=== PATIENT | male | born 1945 | race Caucasian/White ===

== ENCOUNTER → 2016-06-09 | Outpatient (CLI) | payer MEDICARE, OTHER ==
[~2016-06-09] MED LIST: AMIODARONE PO; APIX2.5T OR; ASCO500C49 PO; CHOL20007 PO; CLOP75TA28 PO; Doxycycline Monohydrate PO; FURO40TA4 PO; INSU50IN SC; INSUINJ49 BC; INSUINJ49 SC; LIRA18IN2 SC; MAGN400T21 GT; NIFE30TA76 PO; ROSU10TA16 OR; VALS40TA2 PO; ZINC100T2 PO
[2016-06-09 09:31] LABS: Hematocrit 45.7 % (41.0-53.0); Hemoglobin 14.6 g/dL (13.5-17.5); Mean Corpuscular Hemoglobin 27.3 pg (28.0-32.0); Mean Corpuscular Volume 85.3 fL (80.0-100.0); Mean Platelet Volume 7.3 fL (7.4-10.4); Platelet Count (auto) 419 10^3/uL (140-450); Red Cell Distribution Width 18.6 % (11.6-16.0); SUSPECT VIEW TRANSMISSION
[2016-06-09 09:36] LABS: Metamyelocytes % 0; Myelocytes % 0; Promyelocytes % 0; Reactive Lymphocytes 0
[2016-06-09 10:35] LABS: Platelet Estimate Adequate
== END | disposition home or self-care (01) ==
LOC: LAB 08:59
PROVIDERS: ATTEND Internal Medicine
DX: M86.9 Osteomyelitis, unspecified (principal)
CPT/HCPCS: 36415; 85007; 85027; 85049

== ENCOUNTER 2016-09-11 02:59 | Inpatient (IN) | payer MEDICARE, OTHER ==
[~2016-09-11] VITALS: Ht 177.8 cm; Wt 128.1 kg
[2016-09-11] MEDS ORDERED: SODIUM CHLORIDE 0.9% 250 ML IV ONE (06:58)
[2016-09-11] MEDS ORDERED: ONDANSETRON HCL 4 MG/2 ML VIAL IV ONE (07:00)
[2016-09-11] MEDS ORDERED: HYDROmorphone HCL 2 MG/ML VL IV ONE (07:00)
[2016-09-11] MEDS ORDERED: ACETAMINOPHEN 325 MG TAB PO ONE (07:15)
[2016-09-11 07:40] LABS: Basophils # (auto) 0 uL; DEFINITIVE VIEW TRANSMISSION; Eosinophils # (auto) 0.1 uL; Eosinophils % (auto) 0.7 % (0.0-7.0); Hematocrit 30.3 % (41.0-53.0); Hemoglobin 9.8 g/dL (13.5-17.5); Lymphocytes # (auto) 0.5 uL; Lymphocytes % (auto) 3.4 % (10.0-50.0); Mean Corpuscular Hemoglobin 27.1 pg (28.0-32.0); Mean Corpuscular Hgb Conc. 32.4 g/dL (32.0-36.0); Mean Corpuscular Volume 83.5 fL (80.0-100.0); Mean Platelet Volume 7.2 fL (7.4-10.4); Monocytes # (auto) 1.3 uL; Monocytes % (auto) 8.1 % (0.0-12.0); Neutrophils # (auto) 13.8 uL; Neutrophils % (auto) 87.8 % (37.0-80.0); Platelet Count (auto) 324 10^3/uL (140-450); Red Cell Distribution Width 19.1 % (11.6-16.0); White Blood Cell 15.7 10^3/uL (4.4-10.8)
[2016-09-11 08:10] LABS: INR 1.11 (0.9-1.15); Partial Thromboplastin Time 48.5 sec (22.64-33.71)
[2016-09-11 08:19] LABS: Albumin 2.4 g/dL (3.4-5.0); BUN/Creatinine Ratio 19.6; Bilirubin, Total 0.7 mg/dL (0.2-1.0); Calcium 8.7 mg/dL (8.5-10.1); Magnesium 2.6 mg/dL (1.6-2.6); Potassium 3.8 mmol/L (3.5-5.1); Total Protein 6.5 g/dL (6.4-8.2)
[2016-09-11] MEDS ORDERED: ACETAMINOPHEN 325 MG TAB PO PRN (10:30)
[2016-09-11] MEDS ORDERED: DEXTROSE (50%) 50ML SYRG IV PRN (10:30)
[2016-09-11] MEDS ORDERED: TEMAZEPAM 15 MG CAP PO PRN (10:30)
[2016-09-11] MEDS ORDERED: MORPHINE SULF INJ 2 MG/ML SYRINGE 1ML IV PRN (10:30)
[2016-09-11] MEDS ORDERED: VANCOMYCIN PER PHARMACY 0 MG IV SCH (10:30)
[2016-09-11] MEDS ORDERED: NITROGLYCERIN 0.4 MG SL TAB SL PRN (10:30)
[2016-09-11] MEDS ORDERED: LEVOFLOXACIN 500MG 100 ML IV ONE (10:30)
[2016-09-11] MEDS ORDERED: cloNIDine HCL 0.1 MG TAB PO PRN (10:45)
[2016-09-11] MEDS: FAMOTIDINE 20 MG TAB PO SCH ×2 (11:39→22:20)
[2016-09-11] MEDS: MULTIPLE VITAMIN TAB PO SCH (11:39)
[2016-09-11] MEDS: CLOPIDOGREL BISULFATE 75 MG TAB PO SCH (11:40)
[2016-09-11] MEDS: ASCORBIC ACID 500 MG TAB PO SCH ×2 (11:40→22:20)
[2016-09-11] MEDS: ZINC SULFATE 220 MG CAP PO SCH (11:40)
[2016-09-11] MEDS: AMIODARONE HCL 200 MG TAB PO SCH ×2 (11:40→22:21)
[2016-09-11] MEDS: NIFEdipine ER 30 MG TAB PO SCH (11:40)
[2016-09-11] MEDS: ONDANSETRON HCL 4 MG/2 ML VIAL IV PRN (12:21)
[2016-09-11] MEDS: SODIUM CHLORIDE 0.9% 1,000 ML IV SCH ×2 (12:28→18:48)
[2016-09-11] MEDS: ACCU-CHEK COMFORT CURVE STRIP VI SCH ×3 (12:29→22:00)
[2016-09-11] MEDS: InsuLIN REG 1unit/0.01ml Soln (100units/ml) SC SCH ×3 (12:39→22:30)
[2016-09-11 13:35] VITALS: BP 111/42
[2016-09-11 13:55] VITALS: BP 111/42
[2016-09-11] MEDS: Boost Glucose Control 8 Ounces PO SCH ×3 (14:36→22:20)
[2016-09-11] MEDS: APIXABAN 2.5 MG TAB PO SCH ×2 (14:43→22:20)
[2016-09-11] MEDS: VANCOMYCIN 1GM/250ML D5W 250 ML IV SCH (14:45)
[2016-09-11 16:00] VITALS: BP 101/46
[2016-09-11] MEDS: INSULIN 70/30 1unit/0.01ml Susp (100units/ml) SC SCH (18:13)
[2016-09-11 20:00] VITALS: BP 121/49
[2016-09-11] MEDS: MORPHINE SULF INJ 2 MG/ML SYRINGE 1ML IV PRN (22:16)
[2016-09-11] MEDS: MAGNESIUM OXIDE 400 MG TAB PO SCH (22:20)
[2016-09-11] MEDS: ATORVASTATIN 20 MG TAB PO SCH (22:20)
[2016-09-12] VITALS: BP 109/58
[2016-09-12] MEDS: VANCOMYCIN 1GM/250ML D5W 250 ML IV SCH (01:00)
[2016-09-12] MEDS: SODIUM CHLORIDE 0.9% 1,000 ML IV SCH (01:04)
[2016-09-12 04:00] VITALS: BP 131/54
[2016-09-12 05:22] LABS: Basophils # (auto) 0 uL; DEFINITIVE VIEW TRANSMISSION; Eosinophils # (auto) 0.3 uL; Eosinophils % (auto) 2.5 % (0.0-7.0); Hematocrit 32.6 % (41.0-53.0); Hemoglobin 10.3 g/dL (13.5-17.5); Lymphocytes # (auto) 0.5 uL; Lymphocytes % (auto) 4.2 % (10.0-50.0); Mean Corpuscular Hemoglobin 26.7 pg (28.0-32.0); Mean Corpuscular Hgb Conc. 31.7 g/dL (32.0-36.0); Mean Corpuscular Volume 84.2 fL (80.0-100.0); Mean Platelet Volume 7.2 fL (7.4-10.4); Monocytes % (auto) 7.5 % (0.0-12.0); Neutrophils # (auto) 10.9 uL; Neutrophils % (auto) 85.8 % (37.0-80.0); Platelet Count (auto) 321 10^3/uL (140-450); Red Cell Distribution Width 19.4 % (11.6-16.0); White Blood Cell 12.7 10^3/uL (4.4-10.8)
[2016-09-12 05:45] LABS: Albumin 2.4 g/dL (3.4-5.0); BUN/Creatinine Ratio 18.5; Bilirubin, Total 0.7 mg/dL (0.2-1.0); Calcium 8.5 mg/dL (8.5-10.1); Potassium 4.3 mmol/L (3.5-5.1); Total Protein 6.9 g/dL (6.4-8.2)
[2016-09-12] MEDS: Boost Glucose Control 8 Ounces PO SCH ×4 (06:00→22:00)
[2016-09-12] MEDS: InsuLIN REG 1unit/0.01ml Soln (100units/ml) SC SCH ×4 (06:59→22:13)
[2016-09-12] MEDS: ACCU-CHEK COMFORT CURVE STRIP VI SCH ×4 (06:59→22:13)
[2016-09-12 08:00] VITALS: BP 115/51
[2016-09-12] MEDS: INSULIN 70/30 1unit/0.01ml Susp (100units/ml) SC SCH ×2 (08:30→18:28)
[2016-09-12 09:26] LABS: Urine RBC None Seen /hpf (0 - 3)
[2016-09-12] MEDS: ZINC SULFATE 220 MG CAP PO SCH (09:47)
[2016-09-12] MEDS: APIXABAN 2.5 MG TAB PO SCH ×2 (09:48→21:27)
[2016-09-12] MEDS: AMIODARONE HCL 200 MG TAB PO SCH ×2 (09:48→21:27)
[2016-09-12] MEDS: FAMOTIDINE 20 MG TAB PO SCH ×2 (09:48→21:28)
[2016-09-12] MEDS: NIFEdipine ER 30 MG TAB PO SCH (09:48)
[2016-09-12] MEDS: MULTIPLE VITAMIN TAB PO SCH (09:48)
[2016-09-12] MEDS: MAGNESIUM OXIDE 400 MG TAB PO SCH ×2 (09:48→22:00)
[2016-09-12] MEDS: CLOPIDOGREL BISULFATE 75 MG TAB PO SCH (09:48)
[2016-09-12] MEDS: VICTOZA 18 MG/3 ML SC SCH (09:49)
[2016-09-12] MEDS: CHOLECALCIFEROL (VITD3) 1,000 UNIT TAB PO SCH (09:49)
[2016-09-12] MEDS: ASCORBIC ACID 500 MG TAB PO SCH ×2 (09:49→21:28)
[2016-09-12 09:52] LABS: Urine Bilirubin Negative (Negative); Urine Blood Negative /uL (Negative); Urine Color Yellow (Yellow); Urine Glucose Normal (Normal); Urine Hyaline Cast FEW /lpf (0 - 2); Urine Ketone Negative (Negative); Urine Nitrite Negative (Negative); Urine Squamous Epithelial Cell FEW /hpf (<5); Urine Urobilinogen Normal (Negative)
[2016-09-12] MEDS ORDERED: LEVOFLOXACIN 250MG 50 ML IV SCH (10:00)
[2016-09-12] MEDS ORDERED: PATIENTS OWN MEDICATION PO SCH ×2 (10:00)
[2016-09-12 11:47] VITALS: BP 113/53
[2016-09-12] MEDS ORDERED: DOCUSATE SOD 100 MG CAP PO ONE (12:15)
[2016-09-12] MEDS: PIPERACILLIN-TAZOB 2.25GM 50 ML IV SCH ×2 (12:26→18:27)
[2016-09-12 15:43] VITALS: BP 117/59
[2016-09-12 20:00] VITALS: BP 140/58
[2016-09-12] MEDS: ATORVASTATIN 20 MG TAB PO SCH (21:28)
[2016-09-12] MEDS: DOCUSATE SOD 100 MG CAP PO SCH (21:53)
[2016-09-12] MEDS: MORPHINE SULF INJ 2 MG/ML SYRINGE 1ML IV PRN (21:53)
[2016-09-12] MEDS: ONDANSETRON HCL 4 MG/2 ML VIAL IV PRN (21:53)
[2016-09-12] MEDS ORDERED: ACETAMINOPHEN 325 MG TAB PO PRN (22:30)
[2016-09-13] VITALS (8 sets, daily range): BP systolic 104–141; BP diastolic 43–61
[2016-09-13] MEDS: PIPERACILLIN-TAZOB 2.25GM 50 ML IV SCH ×4 (00:12→18:13)
[2016-09-13 05:33] LABS: Basophils # (auto) 0 uL; Basophils % (auto) 0.1 % (0.0-2.0); DEFINITIVE VIEW TRANSMISSION; Eosinophils # (auto) 0.2 uL; Eosinophils % (auto) 1.4 % (0.0-7.0); Hematocrit 30.4 % (41.0-53.0); Hemoglobin 9.9 g/dL (13.5-17.5); Lymphocytes # (auto) 0.5 uL; Lymphocytes % (auto) 3.7 % (10.0-50.0); Mean Corpuscular Hemoglobin 26.8 pg (28.0-32.0); Mean Corpuscular Hgb Conc. 32.3 g/dL (32.0-36.0); Mean Corpuscular Volume 82.9 fL (80.0-100.0); Mean Platelet Volume 7.2 fL (7.4-10.4); Monocytes # (auto) 0.8 uL; Monocytes % (auto) 6.5 % (0.0-12.0); Neutrophils # (auto) 11.2 uL; Neutrophils % (auto) 88.3 % (37.0-80.0); Platelet Count (auto) 336 10^3/uL (140-450); Red Cell Distribution Width 18.5 % (11.6-16.0); White Blood Cell 12.7 10^3/uL (4.4-10.8)
[2016-09-13 05:53] LABS: BUN/Creatinine Ratio 19.4; Calcium 8.4 mg/dL (8.5-10.1)
[2016-09-13] MEDS: InsuLIN REG 1unit/0.01ml Soln (100units/ml) SC SCH ×4 (07:09→21:46)
[2016-09-13] MEDS: ACCU-CHEK COMFORT CURVE STRIP VI SCH ×4 (07:09→21:46)
[2016-09-13] MEDS: Boost Glucose Control 8 Ounces PO SCH ×4 (07:10→21:46)
[2016-09-13] MEDS: INSULIN 70/30 1unit/0.01ml Susp (100units/ml) SC SCH ×2 (08:42→18:14)
[2016-09-13] MEDS: HYDROcodone-ACET 5/325MG TAB PO PRN (08:43)
[2016-09-13] MEDS: VICTOZA 18 MG/3 ML SC SCH (10:00)
[2016-09-13] MEDS: AMIODARONE HCL 200 MG TAB PO SCH ×2 (10:01→21:45)
[2016-09-13] MEDS: ZINC SULFATE 220 MG CAP PO SCH (10:01)
[2016-09-13] MEDS: DOCUSATE SOD 100 MG CAP PO SCH ×2 (10:01→21:46)
[2016-09-13] MEDS: CLOPIDOGREL BISULFATE 75 MG TAB PO SCH (10:02)
[2016-09-13] MEDS: CHOLECALCIFEROL (VITD3) 1,000 UNIT TAB PO SCH (10:02)
[2016-09-13] MEDS: ASCORBIC ACID 500 MG TAB PO SCH ×2 (10:02→21:45)
[2016-09-13] MEDS: FAMOTIDINE 20 MG TAB PO SCH ×2 (10:02→21:45)
[2016-09-13] MEDS: APIXABAN 2.5 MG TAB PO SCH ×2 (10:02→21:45)
[2016-09-13] MEDS: MULTIPLE VITAMIN TAB PO SCH (10:02)
[2016-09-13] MEDS ORDERED: LACTULOSE 20Gm/30ML SOLN PO ONE (17:00)
[2016-09-13] MEDS: ONDANSETRON HCL 4 MG/2 ML VIAL IV PRN (20:03)
[2016-09-13] MEDS: MORPHINE SULF INJ 2 MG/ML SYRINGE 1ML IV PRN (20:45)
[2016-09-13] MEDS: ATORVASTATIN 20 MG TAB PO SCH (21:45)
[2016-09-14] VITALS (7 sets, daily range): BP systolic 100–137; BP diastolic 52–62
[2016-09-14] MEDS: PIPERACILLIN-TAZOB 2.25GM 50 ML IV SCH ×5 (00:17→23:48)
[2016-09-14] MEDS: Boost Glucose Control 8 Ounces PO SCH ×4 (05:47→22:01)
[2016-09-14 06:07] LABS: Basophils # (auto) 0 uL; DEFINITIVE VIEW TRANSMISSION; Eosinophils # (auto) 0.1 uL; Eosinophils % (auto) 0.5 % (0.0-7.0); Hematocrit 31.9 % (41.0-53.0); Hemoglobin 10.2 g/dL (13.5-17.5); Lymphocytes # (auto) 0.7 uL; Lymphocytes % (auto) 4.2 % (10.0-50.0); Mean Corpuscular Hemoglobin 26.9 pg (28.0-32.0); Mean Corpuscular Volume 84.1 fL (80.0-100.0); Mean Platelet Volume 7.7 fL (7.4-10.4); Monocytes # (auto) 0.9 uL; Monocytes % (auto) 5.9 % (0.0-12.0); Neutrophils # (auto) 14.3 uL; Neutrophils % (auto) 89.4 % (37.0-80.0); Platelet Count (auto) 387 10^3/uL (140-450)
[2016-09-14 06:16] LABS: Calcium 8.6 mg/dL (8.5-10.1); Magnesium 3.2 mg/dL (1.6-2.6); Potassium 3.9 mmol/L (3.5-5.1)
[2016-09-14 06:18] LABS: BUN/Creatinine Ratio 20.1
[2016-09-14] MEDS: ACCU-CHEK COMFORT CURVE STRIP VI SCH ×4 (06:52→22:02)
[2016-09-14] MEDS: InsuLIN REG 1unit/0.01ml Soln (100units/ml) SC SCH ×4 (06:52→22:02)
[2016-09-14] MEDS: INSULIN 70/30 1unit/0.01ml Susp (100units/ml) SC SCH ×2 (08:00→18:10)
[2016-09-14] MEDS: ONDANSETRON HCL 4 MG/2 ML VIAL IV PRN (08:17)
[2016-09-14] MEDS: CLOPIDOGREL BISULFATE 75 MG TAB PO SCH (08:19)
[2016-09-14] MEDS: VICTOZA 18 MG/3 ML SC SCH (10:00)
[2016-09-14] MEDS: MULTIPLE VITAMIN TAB PO SCH (10:00)
[2016-09-14] MEDS: AMIODARONE HCL 200 MG TAB PO SCH ×2 (10:00→22:00)
[2016-09-14] MEDS: CHOLECALCIFEROL (VITD3) 1,000 UNIT TAB PO SCH (10:04)
[2016-09-14] MEDS: ZINC SULFATE 220 MG CAP PO SCH (10:04)
[2016-09-14] MEDS: ASCORBIC ACID 500 MG TAB PO SCH ×2 (10:04→22:01)
[2016-09-14] MEDS: DOCUSATE SOD 100 MG CAP PO SCH ×2 (10:04→22:00)
[2016-09-14] MEDS: FAMOTIDINE 20 MG TAB PO SCH ×2 (10:04→22:01)
[2016-09-14] MEDS: APIXABAN 2.5 MG TAB PO SCH ×2 (10:04→22:01)
[2016-09-14] MEDS: ATORVASTATIN 20 MG TAB PO SCH (22:01)
[2016-09-14] MEDS: HYDROcodone-ACET 5/325MG TAB PO PRN (22:02)
[2016-09-15 04:35] VITALS: BP 129/64
[2016-09-15] MEDS: PIPERACILLIN-TAZOB 2.25GM 50 ML IV SCH (05:57)
[2016-09-15] MEDS: Boost Glucose Control 8 Ounces PO SCH (05:57)
[2016-09-15 06:19] LABS: Basophils # (auto) 0 uL; Basophils % (auto) 0.1 % (0.0-2.0); DEFINITIVE VIEW TRANSMISSION; Eosinophils # (auto) 0.3 uL; Eosinophils % (auto) 3.1 % (0.0-7.0); Hematocrit 29.6 % (41.0-53.0); Hemoglobin 9.7 g/dL (13.5-17.5); Lymphocytes # (auto) 0.6 uL; Lymphocytes % (auto) 5.4 % (10.0-50.0); Mean Corpuscular Hemoglobin 26.9 pg (28.0-32.0); Mean Corpuscular Hgb Conc. 32.7 g/dL (32.0-36.0); Mean Corpuscular Volume 82.3 fL (80.0-100.0); Mean Platelet Volume 7.7 fL (7.4-10.4); Monocytes # (auto) 0.9 uL; Monocytes % (auto) 8.3 % (0.0-12.0); Neutrophils # (auto) 8.7 uL; Neutrophils % (auto) 83.1 % (37.0-80.0); Platelet Count (auto) 384 10^3/uL (140-450); Red Cell Distribution Width 18.9 % (11.6-16.0); White Blood Cell 10.5 10^3/uL (4.4-10.8)
[2016-09-15] MEDS: ACCU-CHEK COMFORT CURVE STRIP VI SCH (06:51)
[2016-09-15] MEDS: InsuLIN REG 1unit/0.01ml Soln (100units/ml) SC SCH (06:52)
[2016-09-15 07:23] VITALS: BP 125/57
[2016-09-15 08:00] VITALS: BP 125/57
[2016-09-15] MEDS: CLOPIDOGREL BISULFATE 75 MG TAB PO SCH (09:00)
[2016-09-15] MEDS: FAMOTIDINE 20 MG TAB PO SCH (09:00)
[2016-09-15] MEDS: MULTIPLE VITAMIN TAB PO SCH (09:00)
[2016-09-15] MEDS: INSULIN 70/30 1unit/0.01ml Susp (100units/ml) SC SCH (09:00)
[2016-09-15] MEDS: APIXABAN 2.5 MG TAB PO SCH (09:00)
[2016-09-15] MEDS: CHOLECALCIFEROL (VITD3) 1,000 UNIT TAB PO SCH (09:00)
[2016-09-15] MEDS: DOCUSATE SOD 100 MG CAP PO SCH (09:00)
[2016-09-15] MEDS: ZINC SULFATE 220 MG CAP PO SCH (09:00)
[2016-09-15] MEDS: ASCORBIC ACID 500 MG TAB PO SCH (09:00)
[2016-09-15] MEDS: AMIODARONE HCL 200 MG TAB PO SCH (09:01)
[2016-09-15] MEDS: VICTOZA 18 MG/3 ML SC SCH (09:03)
[2016-09-15 11:58] VITALS: BP 108/48
== END 2016-09-15 13:15 | disposition home or self-care (01) | DRG 314 ==
LOC: ER 03:01 → TELE 03:02 → DOU IN ICU 13:37 → TELE-CENTR 09-13 16:10
PROVIDERS: ADMIT Internal Medicine; ATTEND Internal Medicine
PROC: 5A09357 Assistance with Respiratory Ventilation, Less than 24 Consecutive Hours, Continuous Positive Airway Pressure (ICD-10-PCS; principal; 2016-09-12)
DX: T82.7XXA Infection and inflammatory reaction due to other cardiac and vascular devices, implants and grafts, initial encounter (principal); A41.89 Other specified sepsis; E43 Unspecified severe protein-calorie malnutrition; I50.32 Chronic diastolic (congestive) heart failure; I25.10 Atherosclerotic heart disease of native coronary artery without angina pectoris; E86.0 Dehydration; E10.21 Type 1 diabetes mellitus with diabetic nephropathy; E03.9 Hypothyroidism, unspecified; E78.5 Hyperlipidemia, unspecified; I48.91 Unspecified atrial fibrillation; N18.3 Chronic kidney disease, stage 3 (moderate); E66.01 Morbid (severe) obesity due to excess calories; Z68.39 Body mass index [BMI] 39.0-39.9, adult; J44.9 Chronic obstructive pulmonary disease, unspecified; Z99.81 Dependence on supplemental oxygen; I13.10 Hypertensive heart and chronic kidney disease without heart failure, with stage 1 through stage 4 chronic kidney disease, or unspecified chronic kidney disease; Y83.9 Surgical procedure, unspecified as the cause of abnormal reaction of the patient, or of later complication, without mention of misadventure at the time of the procedure
CPT/HCPCS: 36415; 71010; 72131; 73030; 74176; 80048; 80053; 81001; 82962; 83036; 83605; 83735; 84484; 85025; 85610; 85730; 87040; 87081; 87086; 93005; 93306; 93971; 94660; 96361; 96365; 96375; 97116; 97530; J1815; J1956; J2405; J2543

== ENCOUNTER → 2016-09-21 | Outpatient (CLI) | payer MEDICARE, OTHER ==
[2016-09-21 09:13] LABS: Urine RBC None Seen /hpf (0 - 3)
[2016-09-21 09:14] LABS: Basophils # (auto) 0 uL; Basophils % (auto) 0.2 % (0.0-2.0); DEFINITIVE VIEW TRANSMISSION; Eosinophils # (auto) 0.3 uL; Eosinophils % (auto) 2.2 % (0.0-7.0); Hematocrit 33.4 % (41.0-53.0); Hemoglobin 10.7 g/dL (13.5-17.5); Lymphocytes # (auto) 0.6 uL; Lymphocytes % (auto) 4.8 % (10.0-50.0); Mean Corpuscular Hemoglobin 26.4 pg (28.0-32.0); Mean Corpuscular Hgb Conc. 32.2 g/dL (32.0-36.0); Mean Corpuscular Volume 82.1 fL (80.0-100.0); Mean Platelet Volume 6.9 fL (7.4-10.4); Monocytes # (auto) 0.9 uL; Monocytes % (auto) 6.8 % (0.0-12.0); Neutrophils # (auto) 10.9 uL; Platelet Count (auto) 419 10^3/uL (140-450); Red Cell Distribution Width 19.7 % (11.6-16.0); White Blood Cell 12.6 10^3/uL (4.4-10.8)
[2016-09-21 09:36] LABS: Albumin 2.6 g/dL (3.4-5.0); BUN/Creatinine Ratio 17.8; Bilirubin, Total 0.5 mg/dL (0.2-1.0); Calcium 8.7 mg/dL (8.5-10.1); Potassium 4.2 mmol/L (3.5-5.1); Total Protein 7.1 g/dL (6.4-8.2)
[2016-09-21 09:49] LABS: Urine Bilirubin Negative (Negative); Urine Blood Negative /uL (Negative); Urine Color Yellow (Yellow); Urine Glucose Normal (Normal); Urine Ketone Negative (Negative); Urine Nitrite Negative (Negative); Urine Urobilinogen Normal (Negative)
== END | disposition home or self-care (01) ==
LOC: LAB 08:53
PROVIDERS: ATTEND Internal Medicine
DX: D72.829 Elevated white blood cell count, unspecified (principal); C50.122 Malignant neoplasm of central portion of left male breast; C64.2 Malignant neoplasm of left kidney, except renal pelvis
CPT/HCPCS: 36415; 80053; 81001; 83615; 85025

== ENCOUNTER → 2016-09-21 | Outpatient (CLI) | payer MEDICARE, OTHER ==
[2016-09-21 08:42] LABS: Allen Test Modified; Base Excess 0.3 mmol/L (-2.0-2.0); Blood 02Sat 89.1 % (96-100); Blood AaDO2 56.5 mmHg (<26.0); Blood COHb 0.3 % (0.5-1.5); Blood MetHb 0.3 % (0.0-1.5); Blood O2Hb 88.6 % (95.0-100.0); HCO3 23.2 mmol/L (22-26.0); MODE ROOM AIR; PCO2 31.4 mmHg (35.0-45.0); PO2 55.6 mmHg (65.0-85.0); Sample Type Arterial; pH 7.486 (7.350-7.450)
== END | disposition home or self-care (01) ==
LOC: RT 08:11
PROVIDERS: ATTEND Internal Medicine
DX: I50.9 Heart failure, unspecified (principal)
CPT/HCPCS: 36600; 82805

== ENCOUNTER → 2016-10-17 | Outpatient (CLI) | payer MEDICARE, OTHER ==
[2016-10-17 13:33] LABS: DEFINITIVE VIEW TRANSMISSION; Hematocrit 29.9 % (41.0-53.0); Hemoglobin 9.9 g/dL (13.5-17.5); Mean Corpuscular Hemoglobin 26.3 pg (28.0-32.0); Mean Corpuscular Hgb Conc. 32.9 g/dL (32.0-36.0); Mean Platelet Volume 7.3 fL (7.4-10.4); Platelet Count (auto) 318 10^3/uL (140-450); Red Cell Distribution Width 19.6 % (11.6-16.0); SUSPECT VIEW TRANSMISSION; White Blood Cell 18.2 10^3/uL (4.4-10.8)
[2016-10-17 13:49] LABS: Metamyelocytes % 0; Myelocytes % 0; Promyelocytes % 0; Reactive Lymphocytes 0
[2016-10-17 13:57] LABS: Albumin 2.5 g/dL (3.4-5.0); BUN/Creatinine Ratio 21.6; Potassium 4.1 mmol/L (3.5-5.1)
[2016-10-17 14:00] LABS: Bilirubin, Total 0.9 mg/dL (0.2-1.0); Total Protein 6.9 g/dL (6.4-8.2)
[2016-10-17 14:22] LABS: Anisocytosis Slight; Large Platelets FEW; Platelet Estimate Adequa
== END | disposition home or self-care (01) ==
LOC: LAB 12:58
PROVIDERS: ATTEND Internal Medicine
DX: N18.4 Chronic kidney disease, stage 4 (severe) (principal); R50.9 Fever, unspecified
CPT/HCPCS: 36415; 80053; 85007; 85027; 87040; 87086

== ENCOUNTER → 2017-01-04 | Outpatient (CLI) | payer MEDICARE, OTHER ==
[2017-01-04 11:36] LABS: Basophils # (auto) 0 uL; Basophils % (auto) 0.3 % (0.0-2.0); CONDITION Y; Eosinophils # (auto) 0.3 uL; Eosinophils % (auto) 2.8 % (0.0-7.0); Hematocrit 35.1 % (41.0-53.0); Hemoglobin 11.6 g/dL (13.5-17.5); Lymphocytes # (auto) 0.8 uL; Lymphocytes % (auto) 6.9 % (10.0-50.0); Mean Corpuscular Hgb Conc. 33.1 g/dL (32.0-36.0); Mean Corpuscular Volume 87.5 fL (80.0-100.0); Mean Platelet Volume 6.9 fL (7.4-10.4); Monocytes # (auto) 0.8 uL; Neutrophils # (auto) 9.9 uL; Platelet Count (auto) 415 10^3/uL (140-450); Red Cell Distribution Width 17.6 % (11.6-16.0); White Blood Cell 11.9 10^3/uL (4.4-10.8)
[2017-01-04 11:58] LABS: Albumin 2.9 g/dL (3.4-5.0); BUN/Creatinine Ratio 15.9; Bilirubin, Total 0.8 mg/dL (0.2-1.0); Calcium 9.4 mg/dL (8.5-10.1); Potassium 4.3 mmol/L (3.5-5.1); Total Protein 7.8 g/dL (6.4-8.2)
== END | disposition home or self-care (01) ==
LOC: LAB 11:16
PROVIDERS: ATTEND Internal Medicine
DX: I11.0 Hypertensive heart disease with heart failure (principal); I50.9 Heart failure, unspecified; I25.10 Atherosclerotic heart disease of native coronary artery without angina pectoris; I48.91 Unspecified atrial fibrillation; Z95.0 Presence of cardiac pacemaker
CPT/HCPCS: 36415; 80053; 83615; 85025

== ENCOUNTER → 2017-01-25 | Outpatient (CLI) | payer MEDICARE, OTHER ==
[2017-01-25 08:51] LABS: Basophils # (auto) 0 uL; Basophils % (auto) 0.4 % (0.0-2.0); CONDITION Y; Eosinophils # (auto) 0.3 uL; Eosinophils % (auto) 3.4 % (0.0-7.0); Hematocrit 36.8 % (41.0-53.0); Hemoglobin 12.1 g/dL (13.5-17.5); Lymphocytes # (auto) 0.7 uL; Lymphocytes % (auto) 8.2 % (10.0-50.0); Mean Corpuscular Hemoglobin 27.7 pg (28.0-32.0); Mean Corpuscular Hgb Conc. 32.9 g/dL (32.0-36.0); Mean Platelet Volume 7.1 fL (7.4-10.4); Monocytes % (auto) 11.7 % (0.0-12.0); Neutrophils # (auto) 6.7 uL; Neutrophils % (auto) 76.3 % (37.0-80.0); Platelet Count (auto) 395 10^3/uL (140-450); Red Cell Distribution Width 17.2 % (11.6-16.0); White Blood Cell 8.8 10^3/uL (4.4-10.8)
[2017-01-25 08:55] LABS: Urine Bilirubin Negative (Negative); Urine Blood 1+ /uL (Negative); Urine Color Yellow (Yellow); Urine Glucose Normal (Normal); Urine Ketone Negative (Negative); Urine Nitrite Negative (Negative); Urine RBC 12 /hpf (0 - 3); Urine Urobilinogen Normal (Negative); Urine pH 6.5 (5.0-8.0)
[2017-01-25 09:23] LABS: Albumin 3.2 g/dL (3.4-5.0); BUN/Creatinine Ratio 16.6; Bilirubin, Direct 0.1 mg/dL (0-0.2); Bilirubin, Total 0.4 mg/dL (0.2-1.0); Calcium 9.8 mg/dL (8.5-10.1); Phosphorus 3.5 mg/dL (2.5-4.90); Total Protein 8.2 g/dL (6.4-8.2); Uric Acid 8.4 mg/dL (3.5-7.2)
[2017-01-25 11:34] LABS: Urine Protein/Creatinine Ratio 1.86
== END | disposition home or self-care (01) ==
LOC: LAB 07:50
PROVIDERS: ATTEND Specialist
DX: I12.9 Hypertensive chronic kidney disease with stage 1 through stage 4 chronic kidney disease, or unspecified chronic kidney disease (principal); N18.4 Chronic kidney disease, stage 4 (severe); D63.1 Anemia in chronic kidney disease; E03.9 Hypothyroidism, unspecified; E10.9 Type 1 diabetes mellitus without complications; E78.5 Hyperlipidemia, unspecified; E55.9 Vitamin D deficiency, unspecified; R80.9 Proteinuria, unspecified; E21.3 Hyperparathyroidism, unspecified; R97.20 Elevated prostate specific antigen [PSA]
CPT/HCPCS: 36415; 80053; 80061; 80069; 80076; 81001; 82043; 82306; 82570; 82607; 83001; 83036; 84153; 84156; 84439; 84443; 84550; 85025; 85652

== ENCOUNTER → 2017-04-06 | Outpatient (CLI) | payer MEDICARE, OTHER ==
[2017-04-06 09:43] LABS: Basophils # (auto) 0.1 uL; Basophils % (auto) 0.5 % (0.0-2.0); Eosinophils # (auto) 0.3 uL; Eosinophils % (auto) 2.5 % (0.0-7.0); Hematocrit 40.8 % (41.0-53.0); Lymphocytes # (auto) 1.1 uL; Lymphocytes % (auto) 8.4 % (10.0-50.0); Mean Corpuscular Hemoglobin 25.5 pg (28.0-32.0); Mean Corpuscular Hgb Conc. 31.8 g/dL (32.0-36.0); Mean Corpuscular Volume 80.2 fL (80.0-100.0); Mean Platelet Volume 6.6 fL (6.9-10.8); Monocytes # (auto) 0.9 uL; Monocytes % (auto) 7.6 % (0.0-12.0); Neutrophils # (auto) 10.1 uL; Nucleated Red Blood Cells % 0.1 %; Platelet Count (auto) 346 10^3/uL (140-450); Red Cell Distribution Width 18.5 % (11.8-14.3); White Blood Cell 12.4 10^3/uL (4.4-10.8)
[2017-04-06 10:11] LABS: Albumin 3.4 g/dL (3.4-5.0); BUN/Creatinine Ratio 18.6; Bilirubin, Total 0.7 mg/dL (0.2-1.0); Calcium 9.4 mg/dL (8.5-10.1); Potassium 3.9 mmol/L (3.5-5.1); Total Protein 8.7 g/dL (6.4-8.2)
== END | disposition home or self-care (01) ==
LOC: LAB 08:49
PROVIDERS: ATTEND Internal Medicine
DX: C64.2 Malignant neoplasm of left kidney, except renal pelvis (principal); J44.9 Chronic obstructive pulmonary disease, unspecified; I11.0 Hypertensive heart disease with heart failure; I50.9 Heart failure, unspecified; E11.9 Type 2 diabetes mellitus without complications
CPT/HCPCS: 36415; 80053; 83615; 85025

== ENCOUNTER → 2017-05-01 | Outpatient (CLI) | payer MEDICARE, OTHER ==
[2017-05-01 09:47] LABS: Urine Protein/Creatinine Ratio 0.27
[2017-05-01 09:48] LABS: Hemoglobin 11.8 g/dL (13.5-17.5); Mean Corpuscular Hemoglobin 25.5 pg (28.0-32.0); Monocytes # (auto) 1.2 uL
[2017-05-01 09:50] LABS: Albumin 3.2 g/dL (3.4-5.0); BUN/Creatinine Ratio 20.3; Basophils # (auto) 0.1 uL; Basophils % (auto) 0.4 % (0.0-2.0); Calcium 9.2 mg/dL (8.5-10.1); Eosinophils # (auto) 0.4 uL; Hematocrit 36.9 % (41.0-53.0); Lymphocytes % (auto) 7.1 % (10.0-50.0); Mean Corpuscular Volume 79.6 fL (80.0-100.0); Monocytes % (auto) 8.7 % (0.0-12.0); Neutrophils # (auto) 11.2 uL; Neutrophils % (auto) 80.8 % (37.0-80.0); Nucleated Red Blood Cells % 0.2 %; Phosphorus 4.2 mg/dL (2.5-4.90); Platelet Count (auto) 352 10^3/uL (140-450); Potassium 3.9 mmol/L (3.5-5.1); Red Cell Distribution Width 18.7 % (11.8-14.3); Uric Acid 9.1 mg/dL (3.5-7.2); White Blood Cell 13.9 10^3/uL (4.4-10.8)
[2017-05-01 09:55] LABS: Urine Bilirubin Negative (Negative); Urine Blood Negative /uL (Negative); Urine Color Yellow (Yellow); Urine Glucose Normal (Normal); Urine Hyaline Cast FEW /lpf (0 - 2); Urine Ketone Negative (Negative); Urine Nitrite Negative (Negative); Urine RBC 1 /hpf (0 - 3); Urine Squamous Epithelial Cell FEW /hpf (<5); Urine Urobilinogen Normal (Negative); Urine pH 5.5 (5.0-8.0)
== END | disposition home or self-care (01) ==
LOC: LAB 08:18
PROVIDERS: ATTEND Internal Medicine
DX: D63.1 Anemia in chronic kidney disease (principal); I13.0 Hypertensive heart and chronic kidney disease with heart failure and stage 1 through stage 4 chronic kidney disease, or unspecified chronic kidney disease; E11.22 Type 2 diabetes mellitus with diabetic chronic kidney disease; N18.4 Chronic kidney disease, stage 4 (severe); I50.9 Heart failure, unspecified; E21.3 Hyperparathyroidism, unspecified; E78.5 Hyperlipidemia, unspecified; M10.9 Gout, unspecified; E55.9 Vitamin D deficiency, unspecified; R80.9 Proteinuria, unspecified
CPT/HCPCS: 36415; 80061; 80069; 81001; 82306; 82570; 83970; 84156; 84550; 85025

== ENCOUNTER → 2017-06-06 | Outpatient (CLI) | payer MEDICARE, OTHER ==
[2017-06-06 09:39] LABS: Basophils # (auto) 0 uL; Basophils % (auto) 0.3 % (0.0-2.0); Eosinophils # (auto) 0.4 uL; Eosinophils % (auto) 3.6 % (0.0-7.0); Hemoglobin 12.7 g/dL (13.5-17.5); Lymphocytes # (auto) 0.8 uL; Neutrophils # (auto) 9.4 uL; Neutrophils % (auto) 80.9 % (37.0-80.0); White Blood Cell 11.6 10^3/uL (4.4-10.8)
[2017-06-06 09:40] LABS: Hematocrit 39.5 % (41.0-53.0); Lymphocytes % (auto) 6.7 % (10.0-50.0); Mean Corpuscular Hemoglobin 25.3 pg (28.0-32.0); Mean Corpuscular Hgb Conc. 32.1 g/dL (32.0-36.0); Monocytes % (auto) 8.5 % (0.0-12.0); Nucleated Red Blood Cells % 0.2 %; Platelet Count (auto) 370 10^3/uL (140-450); Red Blood Cells 4.99 10^6/uL (4.5-5.90); Red Cell Distribution Width 18.4 % (11.8-14.3)
[2017-06-06 10:19] LABS: Creatinine, Urine 47.1 mg/dL (30.0-125.0); Micro Albumin 62.5 mg/L (0-30.0)
[2017-06-06 10:21] LABS: Potassium 4.4 mmol/L (3.5-5.1)
[2017-06-06 10:22] LABS: BUN/Creatinine Ratio 24.9; Bilirubin, Direct 0.3 mg/dL (0-0.2); Bilirubin, Total 0.8 mg/dL (0.2-1.0); Calcium 9.8 mg/dL (8.5-10.1)
[2017-06-06 10:23] LABS: Albumin 3.2 g/dL (3.4-5.0); Total Protein 8.5 g/dL (6.4-8.2)
== END | disposition home or self-care (01) ==
LOC: LAB 09:16
PROVIDERS: ATTEND Specialist
DX: E11.9 Type 2 diabetes mellitus without complications (principal); E03.9 Hypothyroidism, unspecified; E55.9 Vitamin D deficiency, unspecified
CPT/HCPCS: 36415; 80053; 80061; 80076; 82043; 82306; 82570; 83036; 84443; 85025

== ENCOUNTER 2017-07-29 05:06 | Emergency (ER) | payer MEDICARE, OTHER ==
[~2017-07-29] VITALS: Ht 177.8 cm; Wt 113.4 kg
[2017-07-29] MEDS ORDERED: SODIUM CHLORIDE 0.9% 1,000 ML IV ONE (07:43)
[2017-07-29] MEDS ORDERED: NALBUPHINE HCL 10 MG/1ml INJECTION IV ONE (07:45)
[2017-07-29] MEDS ORDERED: PROMETHAZINE HCL 25 MG/ML 1ML IV ONE (07:45)
[2017-07-29 08:22] LABS: Eosinophils # (auto) 0.2 uL; Eosinophils % (auto) 1.7 % (0.0-7.0); Hemoglobin 11.2 g/dL (13.5-17.5); Lymphocytes # (auto) 0.5 uL; Neutrophils # (auto) 12.5 uL
[2017-07-29 08:24] LABS: Basophils # (auto) 0 uL; Basophils % (auto) 0.3 % (0.0-2.0); Hematocrit 35.3 % (41.0-53.0); Lymphocytes % (auto) 3.7 % (10.0-50.0); Mean Corpuscular Hemoglobin 24.5 pg (28.0-32.0); Mean Corpuscular Hgb Conc. 31.8 g/dL (32.0-36.0); Mean Corpuscular Volume 76.8 fL (80.0-100.0); Monocytes % (auto) 7.2 % (0.0-12.0); Neutrophils % (auto) 87.1 % (37.0-80.0); Platelet Count (auto) 378 10^3/uL (140-450); Red Blood Cells 4.59 10^6/uL (4.5-5.90); Red Cell Distribution Width 18.7 % (11.8-14.3); White Blood Cell 14.4 10^3/uL (4.4-10.8)
[2017-07-29 08:44] LABS: Albumin 2.7 g/dL (3.4-5.0); BUN/Creatinine Ratio 14.3; Bilirubin, Total 0.6 mg/dL (0.2-1.0); Calcium 9.4 mg/dL (8.5-10.1); Magnesium 2.4 mg/dL (1.6-2.6); Total Protein 7.8 g/dL (6.4-8.2)
[2017-07-29] MEDS ORDERED: VANCOMYCIN 1GM/250ML 250 ML IV ONE (10:15)
[2017-07-29 10:35] LABS: Urine Bacteria FEW /hpf (None Seen); Urine Blood Negative /uL (Negative); Urine Specific Gravity 1.005 (1.001-1.035); Urine WBC 3 /hpf (0 - 3)
[2017-07-29 12:05] VITALS: BP 136/68
== END 2017-07-29 12:25 | disposition short-term general hospital (02) ==
LOC: EDBD 05:06 → ER 05:09
DX: M54.16 Radiculopathy, lumbar region (principal); I48.91 Unspecified atrial fibrillation; E11.21 Type 2 diabetes mellitus with diabetic nephropathy; I48.92 Unspecified atrial flutter; M46.24 Osteomyelitis of vertebra, thoracic region; E11.51 Type 2 diabetes mellitus with diabetic peripheral angiopathy without gangrene; E44.0 Moderate protein-calorie malnutrition; I11.0 Hypertensive heart disease with heart failure; I50.9 Heart failure, unspecified; J44.9 Chronic obstructive pulmonary disease, unspecified; I25.10 Atherosclerotic heart disease of native coronary artery without angina pectoris; Z85.528 Personal history of other malignant neoplasm of kidney; Z95.0 Presence of cardiac pacemaker; Z68.35 Body mass index [BMI] 35.0-35.9, adult; Z87.891 Personal history of nicotine dependence; Z79.4 Long term (current) use of insulin; Z88.6 Allergy status to analgesic agent; Z88.1 Allergy status to other antibiotic agents; W19.XXXA Unspecified fall, initial encounter; Y93.89 Activity, other specified; Y92.091 Bathroom in other non-institutional residence as the place of occurrence of the external cause; Y99.8 Other external cause status
CPT/HCPCS: 36415; 51702; 71045; 72131; 80053; 81001; 83735; 84443; 84484; 85025; 93005; 96361; 96365; 96375; 99285; J2300; J2550; J3370; J7030

== ENCOUNTER 2021-02-05 18:48 | Inpatient (IN) | payer MEDICARE, OTHER ==
[~2021-02-05] VITALS: Ht 157.5 cm; Wt 97.0 kg
[~2021-02-05 18:48] MED LIST changes: +AMIO200T5 PO; -AMIODARONE PO; +MAGN241.4 GT; -MAGN400T21 GT; +NIFE1TAB31 PO; -NIFE30TA76 PO
[2021-02-05 20:39] LABS: Albumin 2.5 g/dL (3.4-5.0); Anion Gap 5 (5-15); Blood Urea Nitrogen 41 mg/dL (7-18); Calcium 8.6 mg/dL (8.5-10.1); Carbon Dioxide 31 mmol/L (21-32); Chloride 92 mmol/L (98-107); Glucose 111 mg/dL (74-106); Magnesium 2.1 mg/dL (1.6-2.6); Sodium 128 mmol/L (136-145)
[2021-02-05 20:43] LABS: Alanine Aminotransferase 15 U/L (16-61); Alkaline Phosphatase 74 U/L (45-117); Aspartate Aminotransferase 15 U/L (15-37); BUN/Creatinine Ratio 25.5; Bilirubin, Total 1.2 mg/dL (0.2-1.0); GFR African American 54 mL/min; GFR Non-African American 45 mL/min; Total Protein 6.4 g/dL (6.4-8.2)
[2021-02-05 20:50] LABS: Potassium 6.5 mmol/L (3.5-5.1)
[2021-02-05 20:57] LABS: Basophils # (auto) 0 10 ^3/uL (0-0.2); Basophils % (auto) 0.2 % (0.0-2.0); Eosinophils # (auto) 0.1 10 ^3/uL (0-0.8); Eosinophils % (auto) 0.7 % (0.0-7.0); Hematocrit 43.3 % (41.0-53.0); Hemoglobin 12.5 g/dL (13.5-17.5); Lymphocytes # (auto) 0.5 10 ^3/uL (0.4-5.4); Lymphocytes % (auto) 4.1 % (10.0-50.0); Mean Corpuscular Hemoglobin 27.4 pg (28.0-32.0); Mean Corpuscular Volume 94.6 fL (80.0-100.0); Monocytes % (auto) 8.4 % (0.0-12.0); Neutrophils # (auto) 10.7 10 ^3/uL (1.6-8.6); Neutrophils % (auto) 86.6 % (37.0-80.0); Nucleated Red Blood Cells % 0.1 %; Red Blood Cells 4.58 10^6/uL (4.5-5.90); Red Cell Distribution Width 18.7 % (11.8-14.3); White Blood Cell 12.4 10^3/uL (4.4-10.8)
[2021-02-05] MEDS ORDERED: FUROSEMIDE 40 MG/4 ML VIAL IV ONE (21:15)
[2021-02-05] MEDS ORDERED: InsuLIN REG 1unit/0.01ml Soln (100units/ml) IV ONE (21:30)
[2021-02-05] MEDS ORDERED: DEXTROSE (50%) 50ML SYRG IV ONE (21:30)
[2021-02-05] MEDS ORDERED: DOCUSATE SOD 100 MG CAP PO PRN (23:30)
[2021-02-05] MEDS ORDERED: NITROGLYCERIN 0.4 MG SL TAB SL PRN (23:30)
[2021-02-05] MEDS ORDERED: MORPHINE SULFATE INJECTION 2 MG/ML SYRG IV PRN (23:30)
[2021-02-05] MEDS ORDERED: HYDROcodone-ACET 5/325MG TAB PO PRN (23:30)
[2021-02-05] MEDS ORDERED: SODIUM CHL 3% 500 ML IV ONE (23:30)
[2021-02-05] MEDS ORDERED: DEXTROSE (50%) 50ML SYRG IV PRN (23:30)
[2021-02-05] MEDS ORDERED: MORPHINE SULFATE 4 MG/ML SYR/VIAL IV PRN (23:30)
[2021-02-05] MEDS ORDERED: ACETAMINOPHEN 325 MG TAB PO PRN (23:30)
[2021-02-05] MEDS ORDERED: ALBUMIN 25% 50 ML IV ONE (23:30)
[2021-02-06] MEDS: SODIUM CHLOR 0.9% PF (SALINE LOCK) 10ML VIAL/SYR IV SCH ×3 (06:00→21:41)
[2021-02-06] MEDS: ACCU-CHEK COMFORT CURVE STRIP VI SCH ×4 (06:27→22:00)
[2021-02-06] MEDS: InsuLIN REG 1unit/0.01ml Soln (100units/ml) SC SCH ×4 (06:28→22:00)
[2021-02-06 06:58] LABS: Basophils # (auto) 0 10 ^3/uL (0-0.2); Basophils % (auto) 0.2 % (0.0-2.0); Eosinophils # (auto) 0.1 10 ^3/uL (0-0.8); Eosinophils % (auto) 1.2 % (0.0-7.0); Hematocrit 38.6 % (41.0-53.0); Hemoglobin 12.1 g/dL (13.5-17.5); Lymphocytes # (auto) 0.4 10 ^3/uL (0.4-5.4); Lymphocytes % (auto) 3.9 % (10.0-50.0); Mean Corpuscular Hemoglobin 27.3 pg (28.0-32.0); Mean Corpuscular Hgb Conc. 31.3 g/dL (32.0-36.0); Mean Corpuscular Volume 87.1 fL (80.0-100.0); Monocytes # (auto) 0.9 10 ^3/uL (0-1.3); Monocytes % (auto) 8.6 % (0.0-12.0); Neutrophils # (auto) 8.9 10 ^3/uL (1.6-8.6); Neutrophils % (auto) 86.1 % (37.0-80.0); Red Blood Cells 4.43 10^6/uL (4.5-5.90); Red Cell Distribution Width 17.4 % (11.8-14.3); White Blood Cell 10.3 10^3/uL (4.4-10.8)
[2021-02-06 07:14] LABS: Potassium 4.9 mmol/L (3.5-5.1)
[2021-02-06 07:25] LABS: Albumin 2.8 g/dL (3.4-5.0); BUN/Creatinine Ratio 26.8; Bilirubin, Total 1.1 mg/dL (0.2-1.0); Calcium 9.1 mg/dL (8.5-10.1); Total Protein 6.5 g/dL (6.4-8.2)
[2021-02-06] MEDS: HEPARIN SODIUM (PORCINE) 5000 UNITS/ML 1ML VIAL SC SCH ×2 (10:00→21:42)
[2021-02-06] MEDS: FAMOTIDINE (10MG/ML) 2ML VL IV SCH (10:00)
[2021-02-06] MEDS: AZITHROMYCIN 500MG/ 250ML 250 ML IV SCH (10:00)
[2021-02-06] MEDS: ZINC SULFATE 220mg CAP or TAB PO SCH (10:00)
[2021-02-06] MEDS: FUROSEMIDE 40 MG/4 ML VIAL IV SCH (10:00)
[2021-02-06] MEDS: ASCORBIC ACID 500 MG TAB PO SCH ×2 (10:00→21:41)
[2021-02-06] MEDS: MULTIPLE VITAMIN TAB PO SCH (10:00)
[2021-02-06] MEDS: ONDANSETRON HCL 4 MG/2 ML VIAL IV PRN (12:03)
[2021-02-06] MEDS: methylPREDNISolone SOD SUCC 125 MG/2 ML VL IV SCH ×2 (13:00→21:41)
[2021-02-06 18:49] VITALS: BP 108/36
[2021-02-06] MEDS: IPRATROPIUM BROM 0.5 MG/2.5ML INH SOL NEB SCH ×2 (18:57→21:54)
[2021-02-06] MEDS: ALBUTEROL SULF 2.5 MG/0.5ML(0.5%) NEB SOLN NEB SCH ×2 (18:57→21:54)
[2021-02-06] MEDS: SODIUM CHLORIDE 0.9% 1,000 ML IV SCH (19:00)
[2021-02-06 19:48] LABS: BUN/Creatinine Ratio 25.4; Calcium 8.6 mg/dL (8.5-10.1)
[2021-02-06 19:56] LABS: Potassium 5.9 mmol/L (3.5-5.1)
[2021-02-06 20:12] VITALS: BP 92/38
[2021-02-06 21:54] VITALS: BP 115/88
[2021-02-06 23:57] VITALS: BP 82/29
[2021-02-07] VITALS (9 sets, daily range): BP systolic 86–148; BP diastolic 12–98
[2021-02-07] MEDS ORDERED: ALBUMIN 5% 250 ML IV ONE (01:45)
[2021-02-07] MEDS: IPRATROPIUM BROM 0.5 MG/2.5ML INH SOL NEB SCH ×6 (02:12→22:19)
[2021-02-07] MEDS: ALBUTEROL SULF 2.5 MG/0.5ML(0.5%) NEB SOLN NEB SCH ×6 (02:12→22:19)
[2021-02-07] MEDS: PHENYLEPHRINE IV 250 ML IV SCH ×3 (03:04→21:56)
[2021-02-07 03:52] LABS: BUN/Creatinine Ratio 27.7; Calcium 8.1 mg/dL (8.5-10.1)
[2021-02-07 04:04] LABS: Potassium 6.2 mmol/L (3.5-5.1)
[2021-02-07] MEDS: SODIUM CHLOR 0.9% PF (SALINE LOCK) 10ML VIAL/SYR IV SCH ×3 (06:00→22:00)
[2021-02-07] MEDS: ACCU-CHEK COMFORT CURVE STRIP VI SCH ×4 (06:51→22:00)
[2021-02-07] MEDS: InsuLIN REG 1unit/0.01ml Soln (100units/ml) SC SCH ×4 (06:54→22:00)
[2021-02-07] MEDS: SODIUM CHLORIDE 0.9% 1,000 ML IV SCH (08:47)
[2021-02-07] MEDS ORDERED: FUROSEMIDE 100 MG/10ML VIAL IV ONE (09:30)
[2021-02-07] MEDS ORDERED: DEXTROSE (50%) 50ML SYRG IV ONE (09:30)
[2021-02-07] MEDS ORDERED: ALBUTEROL SULF 2.5 MG/0.5ML(0.5%) NEB SOLN NEB ONE (09:30)
[2021-02-07] MEDS ORDERED: InsuLIN REG 1unit/0.01ml Soln (100units/ml) IV ONE (09:30)
[2021-02-07] MEDS ORDERED: CALCIUM GLUC 1,000mg/50ml-NS 50 ML IV ONE (09:30)
[2021-02-07] MEDS ORDERED: ETOMIDATE (2MG/ML) 20ML VIAL IV ONE ×2 (09:42→10:15)
[2021-02-07] MEDS ORDERED: SUCCINYLCHOLINE CHLORIDE 20 MG/ML 10ML VIAL IV ONE ×2 (09:43→10:15)
[2021-02-07] MEDS ORDERED: MIDAZOLAM DRIP 50 mg/50mL 50 ML IV ONE (09:48)
[2021-02-07] MEDS ORDERED: MIDAZOLAM DRIP 50 mg/50mL 50 ML IV SCH (09:51)
[2021-02-07] MEDS: MIDAZOLAM DRIP 50 mg/50mL 50 ML IV SCH ×4 (09:51→20:34)
[2021-02-07] MEDS: FUROSEMIDE 40 MG/4 ML VIAL IV SCH (10:00)
[2021-02-07 11:05] LABS: Basophils # (auto) 0 10 ^3/uL (0-0.2); Basophils % (auto) 0.1 % (0.0-2.0); Eosinophils # (auto) 0 10 ^3/uL (0-0.8); Lymphocytes # (auto) 0.2 10 ^3/uL (0.4-5.4); Monocytes # (auto) 0.3 10 ^3/uL (0-1.3)
[2021-02-07 11:08] LABS: Hematocrit 37.8 % (41.0-53.0); Hemoglobin 11.7 g/dL (13.5-17.5); Lymphocytes % (auto) 2.1 % (10.0-50.0); Mean Corpuscular Hemoglobin 27.2 pg (28.0-32.0); Mean Corpuscular Hgb Conc. 30.9 g/dL (32.0-36.0); Mean Corpuscular Volume 87.9 fL (80.0-100.0); Monocytes % (auto) 3.3 % (0.0-12.0); Neutrophils # (auto) 9.3 10 ^3/uL (1.6-8.6); Neutrophils % (auto) 94.5 % (37.0-80.0); Red Cell Distribution Width 17.6 % (11.8-14.3); White Blood Cell 9.8 10^3/uL (4.4-10.8)
[2021-02-07] MEDS: methylPREDNISolone SOD SUCC 125 MG/2 ML VL IV SCH ×2 (11:25→22:14)
[2021-02-07] MEDS: HEPARIN SODIUM (PORCINE) 5000 UNITS/ML 1ML VIAL SC SCH ×2 (11:25→22:15)
[2021-02-07] MEDS: FAMOTIDINE (10MG/ML) 2ML VL IV SCH (11:25)
[2021-02-07] MEDS: fentaNYL Drip 2500mCg/250mlNS 250 ML IV SCH (12:17)
[2021-02-07] MEDS: ZINC SULFATE 220mg CAP or TAB PO SCH (12:22)
[2021-02-07] MEDS: MULTIPLE VITAMIN TAB PO SCH (12:23)
[2021-02-07] MEDS: ASCORBIC ACID 500 MG TAB PO SCH ×2 (12:23→22:14)
[2021-02-07] MEDS: SODIUM ZIRCONIUM CYCL 10 GM PAK PO SCH ×3 (12:32→22:14)
[2021-02-07 13:56] LABS: Potassium 4.9 mmol/L (3.5-5.1)
[2021-02-07 14:09] LABS: BUN/Creatinine Ratio 26.9; Calcium 8.4 mg/dL (8.5-10.1)
[2021-02-07] MEDS: AZITHROMYCIN 500MG/ 250ML 250 ML IV SCH (14:25)
[2021-02-08] VITALS (10 sets, daily range): BP systolic 95–129; BP diastolic 21–54
[2021-02-08] MEDS: MIDAZOLAM DRIP 50 mg/50mL 50 ML IV SCH ×8 (00:50→22:55)
[2021-02-08] MEDS: ALBUTEROL SULF 2.5 MG/0.5ML(0.5%) NEB SOLN NEB SCH ×6 (02:00→23:14)
[2021-02-08] MEDS: IPRATROPIUM BROM 0.5 MG/2.5ML INH SOL NEB SCH ×6 (02:00→23:14)
[2021-02-08] MEDS: SODIUM ZIRCONIUM CYCL 10 GM PAK PO SCH ×3 (05:51→21:10)
[2021-02-08] MEDS: SODIUM CHLOR 0.9% PF (SALINE LOCK) 10ML VIAL/SYR IV SCH ×3 (06:00→20:15)
[2021-02-08] MEDS: ACCU-CHEK COMFORT CURVE STRIP VI SCH ×4 (06:23→21:14)
[2021-02-08] MEDS: InsuLIN REG 1unit/0.01ml Soln (100units/ml) SC SCH ×4 (06:23→21:14)
[2021-02-08 06:45] LABS: Basophils # (auto) 0 10 ^3/uL (0-0.2); Basophils % (auto) 0.1 % (0.0-2.0); Eosinophils # (auto) 0 10 ^3/uL (0-0.8); Hemoglobin 11.1 g/dL (13.5-17.5); Lymphocytes # (auto) 0.2 10 ^3/uL (0.4-5.4); Lymphocytes % (auto) 2.5 % (10.0-50.0); Mean Corpuscular Hemoglobin 27.9 pg (28.0-32.0); Mean Corpuscular Hgb Conc. 32.8 g/dL (32.0-36.0); Mean Corpuscular Volume 85.1 fL (80.0-100.0); Monocytes # (auto) 0.4 10 ^3/uL (0-1.3); Monocytes % (auto) 4.5 % (0.0-12.0); Neutrophils # (auto) 8.4 10 ^3/uL (1.6-8.6); Neutrophils % (auto) 92.9 % (37.0-80.0); Red Blood Cells 3.99 10^6/uL (4.5-5.90); Red Cell Distribution Width 17.9 % (11.8-14.3)
[2021-02-08 07:01] LABS: Albumin 2.3 g/dL (3.4-5.0); Calcium 8.4 mg/dL (8.5-10.1); Potassium 3.8 mmol/L (3.5-5.1)
[2021-02-08 07:06] LABS: BUN/Creatinine Ratio 30.6; Bilirubin, Total 1.5 mg/dL (0.2-1.0); Total Protein 5.3 g/dL (6.4-8.2)
[2021-02-08] MEDS: SODIUM CHLORIDE 0.9% 1,000 ML IV SCH ×2 (08:26→12:54)
[2021-02-08] MEDS: PHENYLEPHRINE IV 250 ML IV SCH ×3 (08:26→20:15)
[2021-02-08] MEDS: FUROSEMIDE 40 MG/4 ML VIAL IV SCH (10:26)
[2021-02-08] MEDS: FAMOTIDINE (10MG/ML) 2ML VL IV SCH (10:27)
[2021-02-08] MEDS: methylPREDNISolone SOD SUCC 125 MG/2 ML VL IV SCH (10:27)
[2021-02-08] MEDS: HEPARIN SODIUM (PORCINE) 5000 UNITS/ML 1ML VIAL SC SCH ×2 (10:28→21:11)
[2021-02-08] MEDS: ZINC SULFATE 220mg CAP or TAB PO SCH (10:28)
[2021-02-08] MEDS: AZITHROMYCIN 500MG/ 250ML 250 ML IV SCH (10:28)
[2021-02-08] MEDS: MULTIPLE VITAMIN TAB PO SCH (10:28)
[2021-02-08] MEDS: ASCORBIC ACID 500 MG TAB PO SCH ×2 (10:28→21:10)
[2021-02-08] MEDS: fentaNYL Drip 2500mCg/250mlNS 250 ML IV SCH (10:30)
[2021-02-08] MEDS: methylPREDNISolone SOD SUCC 40 MG/ML VL IV SCH (21:10)
[2021-02-09] VITALS (25 sets, daily range): BP systolic 114–140; BP diastolic 44–64
[2021-02-09] MEDS: ALBUTEROL SULF 2.5 MG/0.5ML(0.5%) NEB SOLN NEB SCH ×6 (02:22→22:01)
[2021-02-09] MEDS: IPRATROPIUM BROM 0.5 MG/2.5ML INH SOL NEB SCH ×6 (02:22→22:01)
[2021-02-09] MEDS: MIDAZOLAM DRIP 50 mg/50mL 50 ML IV SCH ×4 (02:43→20:00)
[2021-02-09] MEDS: SODIUM ZIRCONIUM CYCL 10 GM PAK PO SCH (04:53)
[2021-02-09] MEDS: PHENYLEPHRINE IV 250 ML IV SCH ×3 (04:54→21:40)
[2021-02-09] MEDS: SODIUM CHLOR 0.9% PF (SALINE LOCK) 10ML VIAL/SYR IV SCH ×3 (04:55→22:00)
[2021-02-09 05:36] LABS: Basophils # (auto) 0 10 ^3/uL (0-0.2); Eosinophils # (auto) 0 10 ^3/uL (0-0.8); Hemoglobin 11.1 g/dL (13.5-17.5); Lymphocytes # (auto) 0.1 10 ^3/uL (0.4-5.4); Lymphocytes % (auto) 1.7 % (10.0-50.0); Mean Corpuscular Hemoglobin 27.1 pg (28.0-32.0); Mean Corpuscular Hgb Conc. 32.6 g/dL (32.0-36.0); Mean Corpuscular Volume 83.3 fL (80.0-100.0); Monocytes # (auto) 0.3 10 ^3/uL (0-1.3); Monocytes % (auto) 3.2 % (0.0-12.0); Neutrophils # (auto) 7.9 10 ^3/uL (1.6-8.6); Neutrophils % (auto) 95.1 % (37.0-80.0); Red Blood Cells 4.09 10^6/uL (4.5-5.90); Red Cell Distribution Width 17.9 % (11.8-14.3); White Blood Cell 8.3 10^3/uL (4.4-10.8)
[2021-02-09] MEDS: ACCU-CHEK COMFORT CURVE STRIP VI SCH ×4 (05:46→22:28)
[2021-02-09] MEDS: InsuLIN REG 1unit/0.01ml Soln (100units/ml) SC SCH ×4 (05:48→22:27)
[2021-02-09 05:57] LABS: Albumin 2.1 g/dL (3.4-5.0); Calcium 8.1 mg/dL (8.5-10.1); Potassium 3.1 mmol/L (3.5-5.1)
[2021-02-09 06:02] LABS: BUN/Creatinine Ratio 32.3; Bilirubin, Total 1.1 mg/dL (0.2-1.0)
[2021-02-09] MEDS: FUROSEMIDE 40 MG/4 ML VIAL IV SCH (10:05)
[2021-02-09] MEDS: ZINC SULFATE 220mg CAP or TAB PO SCH (10:06)
[2021-02-09] MEDS: MULTIPLE VITAMIN TAB PO SCH (10:06)
[2021-02-09] MEDS: FAMOTIDINE (10MG/ML) 2ML VL IV SCH (10:06)
[2021-02-09] MEDS: HEPARIN SODIUM (PORCINE) 5000 UNITS/ML 1ML VIAL SC SCH ×2 (10:06→22:27)
[2021-02-09] MEDS: methylPREDNISolone SOD SUCC 40 MG/ML VL IV SCH ×2 (10:06→22:26)
[2021-02-09] MEDS: AZITHROMYCIN 500MG/ 250ML 250 ML IV SCH (10:06)
[2021-02-09] MEDS: ASCORBIC ACID 500 MG TAB PO SCH ×2 (10:06→22:32)
[2021-02-09] MEDS ORDERED: Glucerna 1.2 Cal 1Liter BOTTLE GT SCH (10:15)
[2021-02-09] MEDS: fentaNYL Drip 2500mCg/250mlNS 250 ML IV SCH (10:30)
[2021-02-09] MEDS: SODIUM CHLORIDE 0.9% 1,000 ML IV SCH (12:30)
[2021-02-10] VITALS (88 sets, daily range): BP systolic 83–170; BP diastolic 33–125
[2021-02-10] MEDS: ALBUTEROL SULF 2.5 MG/0.5ML(0.5%) NEB SOLN NEB SCH ×6 (02:07→22:15)
[2021-02-10] MEDS: IPRATROPIUM BROM 0.5 MG/2.5ML INH SOL NEB SCH ×6 (02:07→22:15)
[2021-02-10 04:46] LABS: Basophils # (auto) 0 10 ^3/uL (0-0.2); Basophils % (auto) 0.3 % (0.0-2.0); Eosinophils # (auto) 0 10 ^3/uL (0-0.8); Eosinophils % (auto) 0.1 % (0.0-7.0); Hematocrit 38.1 % (41.0-53.0); Hemoglobin 12.2 g/dL (13.5-17.5); Lymphocytes # (auto) 0.1 10 ^3/uL (0.4-5.4); Lymphocytes % (auto) 1.5 % (10.0-50.0); Mean Corpuscular Volume 84.2 fL (80.0-100.0); Monocytes # (auto) 0.2 10 ^3/uL (0-1.3); Monocytes % (auto) 2.7 % (0.0-12.0); Neutrophils % (auto) 95.4 % (37.0-80.0); Red Blood Cells 4.52 10^6/uL (4.5-5.90); White Blood Cell 8.4 10^3/uL (4.4-10.8)
[2021-02-10 05:07] LABS: Albumin 2.1 g/dL (3.4-5.0); BUN/Creatinine Ratio 34.1; Potassium 3.1 mmol/L (3.5-5.1)
[2021-02-10 05:10] LABS: Bilirubin, Total 1.2 mg/dL (0.2-1.0); Total Protein 5.3 g/dL (6.4-8.2)
[2021-02-10] MEDS: ACCU-CHEK COMFORT CURVE STRIP VI SCH ×4 (06:27→22:14)
[2021-02-10] MEDS: InsuLIN REG 1unit/0.01ml Soln (100units/ml) SC SCH ×4 (06:27→22:14)
[2021-02-10] MEDS: SODIUM CHLOR 0.9% PF (SALINE LOCK) 10ML VIAL/SYR IV SCH ×3 (06:27→22:15)
[2021-02-10] MEDS: methylPREDNISolone SOD SUCC 40 MG/ML VL IV SCH ×2 (10:19→14:59)
[2021-02-10] MEDS: AZITHROMYCIN 500MG/ 250ML 250 ML IV SCH (10:19)
[2021-02-10] MEDS: FUROSEMIDE 40 MG/4 ML VIAL IV SCH (10:19)
[2021-02-10] MEDS: FAMOTIDINE (10MG/ML) 2ML VL IV SCH (10:19)
[2021-02-10] MEDS: MULTIPLE VITAMIN TAB PO SCH (10:20)
[2021-02-10] MEDS: HEPARIN SODIUM (PORCINE) 5000 UNITS/ML 1ML VIAL SC SCH ×2 (10:21→22:14)
[2021-02-10] MEDS: POTASSIUM CHL 20MEQ/100ML 100 ML IV SCH ×2 (14:58→16:19)
[2021-02-10] MEDS: DOBUTamine 1000MCG/ML 250 ML IV SCH (14:59)
[2021-02-10] MEDS: SODIUM CHLORIDE 0.9% 1,000 ML IV SCH (14:59)
[2021-02-11] VITALS (84 sets, daily range): BP systolic 127–167; BP diastolic 42–80
[2021-02-11] MEDS: ALBUTEROL SULF 2.5 MG/0.5ML(0.5%) NEB SOLN NEB SCH ×6 (02:18→22:51)
[2021-02-11] MEDS: IPRATROPIUM BROM 0.5 MG/2.5ML INH SOL NEB SCH ×6 (02:18→22:51)
[2021-02-11 04:44] LABS: Basophils # (auto) 0 10 ^3/uL (0-0.2); Basophils % (auto) 0.1 % (0.0-2.0); Eosinophils # (auto) 0 10 ^3/uL (0-0.8); Hematocrit 40.7 % (41.0-53.0); Hemoglobin 12.9 g/dL (13.5-17.5); Lymphocytes # (auto) 0.1 10 ^3/uL (0.4-5.4); Lymphocytes % (auto) 0.9 % (10.0-50.0); Mean Corpuscular Hemoglobin 27.1 pg (28.0-32.0); Mean Corpuscular Hgb Conc. 31.7 g/dL (32.0-36.0); Mean Corpuscular Volume 85.6 fL (80.0-100.0); Monocytes # (auto) 0.4 10 ^3/uL (0-1.3); Monocytes % (auto) 3.3 % (0.0-12.0); Neutrophils # (auto) 12.4 10 ^3/uL (1.6-8.6); Neutrophils % (auto) 95.7 % (37.0-80.0); Nucleated Red Blood Cells % 0.1 %; Red Blood Cells 4.76 10^6/uL (4.5-5.90); Red Cell Distribution Width 18.3 % (11.8-14.3); White Blood Cell 12.9 10^3/uL (4.4-10.8)
[2021-02-11 05:07] LABS: Potassium 3.1 mmol/L (3.5-5.1)
[2021-02-11 05:16] LABS: Albumin 2.5 g/dL (3.4-5.0); BUN/Creatinine Ratio 33.6; Bilirubin, Total 1.6 mg/dL (0.2-1.0); Calcium 8.3 mg/dL (8.5-10.1); Total Protein 5.6 g/dL (6.4-8.2)
[2021-02-11] MEDS: InsuLIN REG 1unit/0.01ml Soln (100units/ml) SC SCH ×4 (06:23→21:44)
[2021-02-11] MEDS: SODIUM CHLOR 0.9% PF (SALINE LOCK) 10ML VIAL/SYR IV SCH ×3 (06:24→22:40)
[2021-02-11] MEDS: ACCU-CHEK COMFORT CURVE STRIP VI SCH ×4 (07:10→21:43)
[2021-02-11] MEDS: AZITHROMYCIN 500MG/ 250ML 250 ML IV SCH (09:26)
[2021-02-11] MEDS: methylPREDNISolone SOD SUCC 40 MG/ML VL IV SCH (09:27)
[2021-02-11] MEDS: MULTIPLE VITAMIN TAB PO SCH (09:27)
[2021-02-11] MEDS: FAMOTIDINE (10MG/ML) 2ML VL IV SCH (09:27)
[2021-02-11] MEDS: HEPARIN SODIUM (PORCINE) 5000 UNITS/ML 1ML VIAL SC SCH ×2 (09:28→21:43)
[2021-02-11] MEDS: DOBUTamine 1000MCG/ML 250 ML IV SCH ×2 (09:30→23:51)
[2021-02-11] MEDS: fentaNYL Drip 2500mCg/250mlNS 250 ML IV SCH (10:30)
[2021-02-11] MEDS: POTASSIUM CHL 20MEQ/100ML 100 ML IV SCH ×3 (10:43→14:44)
[2021-02-11] MEDS: FUROSEMIDE 40 MG/4 ML VIAL IV SCH (17:00)
[2021-02-11] MEDS: ONDANSETRON HCL 4 MG/2 ML VIAL IV PRN (18:06)
[2021-02-12] VITALS (82 sets, daily range): BP systolic 103–159; BP diastolic 18–70
[2021-02-12] MEDS: fentaNYL Drip 2500mCg/250mlNS 250 ML IV SCH ×2 (00:26→10:30)
[2021-02-12] MEDS: ALBUTEROL SULF 2.5 MG/0.5ML(0.5%) NEB SOLN NEB SCH ×6 (02:35→22:01)
[2021-02-12] MEDS: IPRATROPIUM BROM 0.5 MG/2.5ML INH SOL NEB SCH ×6 (02:35→22:01)
[2021-02-12 03:46] LABS: Basophils # (auto) 0 10 ^3/uL (0-0.2); Eosinophils # (auto) 0 10 ^3/uL (0-0.8); Hemoglobin 13.1 g/dL (13.5-17.5); Lymphocytes # (auto) 0.2 10 ^3/uL (0.4-5.4)
[2021-02-12 03:48] LABS: Basophils % (auto) 0.3 % (0.0-2.0); Eosinophils % (auto) 0.1 % (0.0-7.0); Hematocrit 41.7 % (41.0-53.0); Lymphocytes % (auto) 1.5 % (10.0-50.0); Mean Corpuscular Hemoglobin 26.4 pg (28.0-32.0); Mean Corpuscular Hgb Conc. 31.4 g/dL (32.0-36.0); Monocytes # (auto) 0.6 10 ^3/uL (0-1.3); Monocytes % (auto) 4.1 % (0.0-12.0); Neutrophils # (auto) 12.8 10 ^3/uL (1.6-8.6); Red Blood Cells 4.96 10^6/uL (4.5-5.90); Red Cell Distribution Width 17.9 % (11.8-14.3); White Blood Cell 13.6 10^3/uL (4.4-10.8)
[2021-02-12 04:07] LABS: Potassium 3.3 mmol/L (3.5-5.1)
[2021-02-12 04:12] LABS: Albumin 2.4 g/dL (3.4-5.0); BUN/Creatinine Ratio 30.8; Calcium 8.5 mg/dL (8.5-10.1)
[2021-02-12 04:15] LABS: Bilirubin, Total 1.9 mg/dL (0.2-1.0); Total Protein 5.4 g/dL (6.4-8.2)
[2021-02-12] MEDS: SODIUM CHLOR 0.9% PF (SALINE LOCK) 10ML VIAL/SYR IV SCH ×3 (06:39→22:13)
[2021-02-12] MEDS: InsuLIN REG 1unit/0.01ml Soln (100units/ml) SC SCH ×4 (06:41→22:16)
[2021-02-12] MEDS: ACCU-CHEK COMFORT CURVE STRIP VI SCH ×4 (06:41→22:16)
[2021-02-12] MEDS ORDERED: POTASSIUM CHL 20MEQ/100ML 100 ML IV ONE ×2 (08:45→13:00)
[2021-02-12] MEDS: methylPREDNISolone SOD SUCC 40 MG/ML VL IV SCH (09:24)
[2021-02-12] MEDS: HEPARIN SODIUM (PORCINE) 5000 UNITS/ML 1ML VIAL SC SCH ×2 (09:25→22:15)
[2021-02-12] MEDS: FUROSEMIDE 40 MG/4 ML VIAL IV SCH (09:26)
[2021-02-12] MEDS: FAMOTIDINE (10MG/ML) 2ML VL IV SCH (09:27)
[2021-02-12] MEDS: MULTIPLE VITAMIN TAB PO SCH (09:27)
[2021-02-12] MEDS: AZITHROMYCIN 500MG/ 250ML 250 ML IV SCH (09:28)
[2021-02-12] MEDS: POTASSIUM CHL 20MEQ/100ML 100 ML IV SCH (10:00)
[2021-02-12] MEDS: levoFLOXacin 500MG 100 ML IV SCH (12:30)
[2021-02-12] MEDS: DOBUTamine 1000MCG/ML 250 ML IV SCH (14:05)
[2021-02-13] VITALS (44 sets, daily range): BP systolic 97–149; BP diastolic 39–66
[2021-02-13] MEDS: ALBUTEROL SULF 2.5 MG/0.5ML(0.5%) NEB SOLN NEB SCH ×6 (02:10→22:37)
[2021-02-13] MEDS: IPRATROPIUM BROM 0.5 MG/2.5ML INH SOL NEB SCH ×6 (02:10→22:37)
[2021-02-13] MEDS: DOBUTamine 1000MCG/ML 250 ML IV SCH ×2 (04:10→18:41)
[2021-02-13] MEDS: ACCU-CHEK COMFORT CURVE STRIP VI SCH ×4 (06:03→22:29)
[2021-02-13] MEDS: SODIUM CHLOR 0.9% PF (SALINE LOCK) 10ML VIAL/SYR IV SCH ×3 (06:03→22:27)
[2021-02-13] MEDS: InsuLIN REG 1unit/0.01ml Soln (100units/ml) SC SCH ×4 (06:04→22:30)
[2021-02-13] MEDS: AZITHROMYCIN 500MG/ 250ML 250 ML IV SCH (10:00)
[2021-02-13] MEDS: fentaNYL Drip 2500mCg/250mlNS 250 ML IV SCH (10:30)
[2021-02-13] MEDS: FUROSEMIDE 40 MG/4 ML VIAL IV SCH (11:10)
[2021-02-13] MEDS: FAMOTIDINE (10MG/ML) 2ML VL IV SCH (11:11)
[2021-02-13] MEDS: POTASSIUM CHL 20MEQ/100ML 100 ML IV SCH (11:11)
[2021-02-13] MEDS: methylPREDNISolone SOD SUCC 40 MG/ML VL IV SCH (11:11)
[2021-02-13] MEDS: MULTIPLE VITAMIN TAB PO SCH (11:11)
[2021-02-13] MEDS: levoFLOXacin 500MG 100 ML IV SCH (11:13)
[2021-02-13] MEDS: HEPARIN SODIUM (PORCINE) 5000 UNITS/ML 1ML VIAL SC SCH ×2 (11:19→22:29)
[2021-02-14] VITALS (41 sets, daily range): BP systolic 97–155; BP diastolic 38–87
[2021-02-14] MEDS: ALBUTEROL SULF 2.5 MG/0.5ML(0.5%) NEB SOLN NEB SCH ×6 (02:00→23:05)
[2021-02-14] MEDS: IPRATROPIUM BROM 0.5 MG/2.5ML INH SOL NEB SCH ×6 (02:00→23:05)
[2021-02-14] MEDS: DOBUTamine 1000MCG/ML 250 ML IV SCH ×2 (05:54→22:32)
[2021-02-14] MEDS: SODIUM CHLOR 0.9% PF (SALINE LOCK) 10ML VIAL/SYR IV SCH ×3 (06:37→21:55)
[2021-02-14] MEDS: ACCU-CHEK COMFORT CURVE STRIP VI SCH ×4 (06:38→21:57)
[2021-02-14] MEDS: InsuLIN REG 1unit/0.01ml Soln (100units/ml) SC SCH ×4 (06:39→21:56)
[2021-02-14 09:26] LABS: Basophils # (auto) 0 10 ^3/uL (0-0.2); Basophils % (auto) 0.2 % (0.0-2.0); Eosinophils # (auto) 0.1 10 ^3/uL (0-0.8); Lymphocytes # (auto) 0.4 10 ^3/uL (0.4-5.4)
[2021-02-14 09:27] LABS: Eosinophils % (auto) 0.7 % (0.0-7.0); Hematocrit 42.3 % (41.0-53.0); Hemoglobin 13.2 g/dL (13.5-17.5); Lymphocytes % (auto) 2.3 % (10.0-50.0); Mean Corpuscular Hemoglobin 26.5 pg (28.0-32.0); Mean Corpuscular Hgb Conc. 31.3 g/dL (32.0-36.0); Mean Corpuscular Volume 84.5 fL (80.0-100.0); Monocytes # (auto) 0.7 10 ^3/uL (0-1.3); Monocytes % (auto) 4.5 % (0.0-12.0); Neutrophils # (auto) 14.7 10 ^3/uL (1.6-8.6); Neutrophils % (auto) 92.3 % (37.0-80.0); Nucleated Red Blood Cells % 0.2 %; Red Blood Cells 5.01 10^6/uL (4.5-5.90); Red Cell Distribution Width 17.7 % (11.8-14.3)
[2021-02-14] MEDS: levoFLOXacin 500MG 100 ML IV SCH (09:45)
[2021-02-14] MEDS: methylPREDNISolone SOD SUCC 40 MG/ML VL IV SCH (09:46)
[2021-02-14] MEDS: FUROSEMIDE 40 MG/4 ML VIAL IV SCH (09:46)
[2021-02-14] MEDS: HEPARIN SODIUM (PORCINE) 5000 UNITS/ML 1ML VIAL SC SCH ×2 (09:48→21:55)
[2021-02-14 09:55] LABS: Albumin 2.7 g/dL (3.4-5.0); Potassium 3.8 mmol/L (3.5-5.1)
[2021-02-14 09:59] LABS: BUN/Creatinine Ratio 22.4; Bilirubin, Total 2.5 mg/dL (0.2-1.0); Total Protein 5.7 g/dL (6.4-8.2)
[2021-02-14] MEDS: MULTIPLE VITAMIN TAB PO SCH ×2 (10:00→13:10)
[2021-02-14] MEDS: fentaNYL Drip 2500mCg/250mlNS 250 ML IV SCH (10:30)
[2021-02-14] MEDS: AZITHROMYCIN 500MG/ 250ML 250 ML IV SCH (12:00)
[2021-02-14] MEDS: FAMOTIDINE (10MG/ML) 2ML VL IV SCH (12:29)
[2021-02-14] MEDS ORDERED: SODIUM BICARBONATE 8.4 % INJ 50ML VIAL IV ONE (12:30)
[2021-02-14] MEDS: POTASSIUM CHL 20MEQ/100ML 100 ML IV SCH (17:50)
[2021-02-15] MEDS: IPRATROPIUM BROM 0.5 MG/2.5ML INH SOL NEB SCH ×6 (02:00→22:12)
[2021-02-15] MEDS: ALBUTEROL SULF 2.5 MG/0.5ML(0.5%) NEB SOLN NEB SCH ×6 (02:00→22:12)
[2021-02-15 04:36] LABS: Urine Bacteria FEW /hpf (None Seen); Urine Blood 2+ /uL (Negative); Urine Specific Gravity 1.012 (1.001-1.035); Urine WBC 9 /hpf (0 - 3)
[2021-02-15 05:00] VITALS: BP 121/55
[2021-02-15] MEDS: ACCU-CHEK COMFORT CURVE STRIP VI SCH ×4 (06:10→22:50)
[2021-02-15] MEDS: SODIUM CHLOR 0.9% PF (SALINE LOCK) 10ML VIAL/SYR IV SCH ×3 (06:10→22:50)
[2021-02-15] MEDS: InsuLIN REG 1unit/0.01ml Soln (100units/ml) SC SCH ×4 (06:22→22:54)
[2021-02-15 06:26] LABS: INR 1.18 (0.9-1.15); Partial Thromboplastin Time 27.6 sec (23.6-33.0)
[2021-02-15 09:00] VITALS: BP 129/68
[2021-02-15] MEDS: levoFLOXacin 500MG 100 ML IV SCH (09:20)
[2021-02-15] MEDS: methylPREDNISolone SOD SUCC 40 MG/ML VL IV SCH (09:21)
[2021-02-15] MEDS: FUROSEMIDE 40 MG/4 ML VIAL IV SCH (09:21)
[2021-02-15] MEDS: FAMOTIDINE (10MG/ML) 2ML VL IV SCH (09:21)
[2021-02-15] MEDS: HEPARIN SODIUM (PORCINE) 5000 UNITS/ML 1ML VIAL SC SCH ×2 (09:50→21:44)
[2021-02-15] MEDS: MULTIPLE VITAMIN TAB PO SCH (09:50)
[2021-02-15] MEDS: AZITHROMYCIN 500MG/ 250ML 250 ML IV SCH (10:45)
[2021-02-15 12:14] LABS: Albumin 2.7 g/dL (3.4-5.0); Calcium 9.1 mg/dL (8.5-10.1)
[2021-02-15 12:26] LABS: BUN/Creatinine Ratio 21.3; Bilirubin, Total 2.2 mg/dL (0.2-1.0); Potassium 4.1 mmol/L (3.5-5.1); Total Protein 5.9 g/dL (6.4-8.2)
[2021-02-15] MEDS: POTASSIUM CHL 20MEQ/100ML 100 ML IV SCH (12:54)
[2021-02-15 13:00] VITALS: BP 103/68
[2021-02-15 17:00] VITALS: BP 125/64
[2021-02-15 21:43] VITALS: BP 101/52
[2021-02-16] MEDS: ALBUTEROL SULF 2.5 MG/0.5ML(0.5%) NEB SOLN NEB SCH ×7 (01:22→22:37)
[2021-02-16] MEDS: IPRATROPIUM BROM 0.5 MG/2.5ML INH SOL NEB SCH ×7 (01:22→22:37)
[2021-02-16 04:48] VITALS: BP 102/59
[2021-02-16 05:10] LABS: Basophils # (auto) 0 10 ^3/uL (0-0.2); Hemoglobin 13.4 g/dL (13.5-17.5); Lymphocytes # (auto) 0.6 10 ^3/uL (0.4-5.4); White Blood Cell 15.5 10^3/uL (4.4-10.8)
[2021-02-16 05:13] LABS: Basophils % (auto) 0.1 % (0.0-2.0); Eosinophils # (auto) 0 10 ^3/uL (0-0.8); Eosinophils % (auto) 0.2 % (0.0-7.0); Hematocrit 41.7 % (41.0-53.0); Lymphocytes % (auto) 3.9 % (10.0-50.0); Mean Corpuscular Hemoglobin 26.9 pg (28.0-32.0); Mean Corpuscular Hgb Conc. 32.1 g/dL (32.0-36.0); Mean Corpuscular Volume 83.7 fL (80.0-100.0); Monocytes % (auto) 6.6 % (0.0-12.0); Neutrophils # (auto) 13.8 10 ^3/uL (1.6-8.6); Neutrophils % (auto) 89.2 % (37.0-80.0); Nucleated Red Blood Cells % 0.1 %; Red Blood Cells 4.98 10^6/uL (4.5-5.90); Red Cell Distribution Width 17.4 % (11.8-14.3)
[2021-02-16] MEDS: SODIUM CHLOR 0.9% PF (SALINE LOCK) 10ML VIAL/SYR IV SCH ×3 (06:52→22:00)
[2021-02-16] MEDS: ACCU-CHEK COMFORT CURVE STRIP VI SCH ×4 (06:52→22:00)
[2021-02-16] MEDS: InsuLIN REG 1unit/0.01ml Soln (100units/ml) SC SCH ×4 (06:53→22:00)
[2021-02-16] MEDS: levoFLOXacin 500MG 100 ML IV SCH (08:01)
[2021-02-16 09:00] VITALS: BP 122/56
[2021-02-16] MEDS: FUROSEMIDE 40 MG/4 ML VIAL IV SCH (09:04)
[2021-02-16] MEDS: FAMOTIDINE (10MG/ML) 2ML VL IV SCH (09:04)
[2021-02-16] MEDS: methylPREDNISolone SOD SUCC 40 MG/ML VL IV SCH (09:05)
[2021-02-16] MEDS: HEPARIN SODIUM (PORCINE) 5000 UNITS/ML 1ML VIAL SC SCH ×2 (09:05→22:39)
[2021-02-16] MEDS: AZITHROMYCIN 500MG/ 250ML 250 ML IV SCH (09:05)
[2021-02-16 09:08] VITALS: BP 122/56
[2021-02-16] MEDS: POTASSIUM CHL 20MEQ/100ML 100 ML IV SCH (10:58)
[2021-02-16 13:00] VITALS: BP 111/59
[2021-02-16 17:00] VITALS: BP 124/55
[2021-02-16 22:03] VITALS: BP 99/54
[2021-02-17] MEDS: IPRATROPIUM BROM 0.5 MG/2.5ML INH SOL NEB SCH ×6 (02:00→21:47)
[2021-02-17] MEDS: ALBUTEROL SULF 2.5 MG/0.5ML(0.5%) NEB SOLN NEB SCH ×6 (02:00→21:47)
[2021-02-17 04:55] VITALS: BP 100/58
[2021-02-17] MEDS: SODIUM CHLOR 0.9% PF (SALINE LOCK) 10ML VIAL/SYR IV SCH ×3 (06:00→21:46)
[2021-02-17] MEDS: ACCU-CHEK COMFORT CURVE STRIP VI SCH ×4 (07:00→21:39)
[2021-02-17] MEDS: InsuLIN REG 1unit/0.01ml Soln (100units/ml) SC SCH ×4 (07:00→21:46)
[2021-02-17 09:00] VITALS: BP 91/45
[2021-02-17] MEDS: levoFLOXacin 500MG 100 ML IV SCH (09:38)
[2021-02-17] MEDS: AZITHROMYCIN 500MG/ 250ML 250 ML IV SCH (09:39)
[2021-02-17] MEDS: methylPREDNISolone SOD SUCC 40 MG/ML VL IV SCH (09:39)
[2021-02-17] MEDS: FAMOTIDINE (10MG/ML) 2ML VL IV SCH (10:00)
[2021-02-17] MEDS: POTASSIUM CHL 20MEQ/100ML 100 ML IV SCH (10:00)
[2021-02-17] MEDS: FUROSEMIDE 40 MG/4 ML VIAL IV SCH (10:00)
[2021-02-17] MEDS: HEPARIN SODIUM (PORCINE) 5000 UNITS/ML 1ML VIAL SC SCH ×2 (10:31→21:39)
[2021-02-17 11:17] LABS: Hematocrit 40.3 % (41.0-53.0); Hemoglobin 12.7 g/dL (13.5-17.5); Mean Corpuscular Hemoglobin 26.9 pg (28.0-32.0); Mean Corpuscular Hgb Conc. 31.6 g/dL (32.0-36.0); Mean Corpuscular Volume 85.2 fL (80.0-100.0); Red Blood Cells 4.74 10^6/uL (4.5-5.90); Red Cell Distribution Width 17.4 % (11.8-14.3); White Blood Cell 14.1 10^3/uL (4.4-10.8)
[2021-02-17 11:19] LABS: Basophils % (manual) 0 (0.0-2.0); Blast Cells 0; Eosinophils % (manual) 0 (0-7); Myelocytes % 0; Promyelocytes % 0; Reactive Lymphocytes 0
[2021-02-17 11:30] LABS: BUN/Creatinine Ratio 25.7; Calcium 8.9 mg/dL (8.5-10.1); Potassium 3.6 mmol/L (3.5-5.1)
[2021-02-17 13:00] VITALS: BP 128/55
[2021-02-17 15:00] LABS: Band Neutrophils % (manual) 4; Lymphocytes % (manual) 2 (10.0-50.0); Metamyelocytes % 1; Monocytes % (manual) 2 (0-12)
[2021-02-17] MEDS: LINEZOLID 600MG/300ML 300 ML IV SCH (16:39)
[2021-02-17 17:00] VITALS: BP 108/69
[2021-02-17 20:00] VITALS: BP 121/58
[2021-02-17 22:38] VITALS: BP 121/58
[2021-02-18] MEDS: LINEZOLID 600MG/300ML 300 ML IV SCH ×2 (00:55→13:00)
[2021-02-18] MEDS: ALBUTEROL SULF 2.5 MG/0.5ML(0.5%) NEB SOLN NEB SCH ×6 (01:54→22:11)
[2021-02-18] MEDS: IPRATROPIUM BROM 0.5 MG/2.5ML INH SOL NEB SCH ×6 (01:54→22:11)
[2021-02-18 05:36] VITALS: BP 105/49
[2021-02-18] MEDS: SODIUM CHLOR 0.9% PF (SALINE LOCK) 10ML VIAL/SYR IV SCH ×3 (06:00→21:39)
[2021-02-18] MEDS: ACCU-CHEK COMFORT CURVE STRIP VI SCH ×4 (06:55→21:39)
[2021-02-18] MEDS: InsuLIN REG 1unit/0.01ml Soln (100units/ml) SC SCH ×4 (06:58→21:49)
[2021-02-18 08:46] VITALS: BP 115/54
[2021-02-18] MEDS: HEPARIN SODIUM (PORCINE) 5000 UNITS/ML 1ML VIAL SC SCH ×2 (09:26→21:48)
[2021-02-18] MEDS: FAMOTIDINE (10MG/ML) 2ML VL IV SCH (09:31)
[2021-02-18] MEDS: FUROSEMIDE 40 MG/4 ML VIAL IV SCH (09:50)
[2021-02-18] MEDS: POTASSIUM CHL 20MEQ/100ML 100 ML IV SCH (09:50)
[2021-02-18 10:50] LABS: Basophils # (auto) 0.1 10 ^3/uL (0-0.2); Basophils % (auto) 0.4 % (0.0-2.0); Eosinophils # (auto) 0.1 10 ^3/uL (0-0.8); Eosinophils % (auto) 0.4 % (0.0-7.0); Hematocrit 40.1 % (41.0-53.0); Hemoglobin 12.8 g/dL (13.5-17.5); Lymphocytes # (auto) 0.6 10 ^3/uL (0.4-5.4); Lymphocytes % (auto) 3.7 % (10.0-50.0); Mean Corpuscular Hgb Conc. 31.9 g/dL (32.0-36.0); Mean Corpuscular Volume 84.5 fL (80.0-100.0); Monocytes # (auto) 0.7 10 ^3/uL (0-1.3); Monocytes % (auto) 4.2 % (0.0-12.0); Neutrophils # (auto) 14.3 10 ^3/uL (1.6-8.6); Neutrophils % (auto) 91.3 % (37.0-80.0); Nucleated Red Blood Cells % 0.1 %; Red Blood Cells 4.75 10^6/uL (4.5-5.90); Red Cell Distribution Width 17.7 % (11.8-14.3); White Blood Cell 15.6 10^3/uL (4.4-10.8)
[2021-02-18 11:08] LABS: BUN/Creatinine Ratio 25.5; Calcium 8.3 mg/dL (8.5-10.1)
[2021-02-18 13:00] VITALS: BP 103/55
[2021-02-18 17:00] VITALS: BP 115/54
[2021-02-18 22:00] VITALS: BP 122/64
[2021-02-19] MEDS: LINEZOLID 600MG/300ML 300 ML IV SCH ×2 (01:07→14:28)
[2021-02-19] MEDS: ALBUTEROL SULF 2.5 MG/0.5ML(0.5%) NEB SOLN NEB SCH ×6 (02:00→22:20)
[2021-02-19] MEDS: IPRATROPIUM BROM 0.5 MG/2.5ML INH SOL NEB SCH ×6 (02:00→22:20)
[2021-02-19 04:24] VITALS: BP 122/56
[2021-02-19 05:27] VITALS: BP 110/53
[2021-02-19] MEDS: SODIUM CHLOR 0.9% PF (SALINE LOCK) 10ML VIAL/SYR IV SCH ×3 (06:00→21:15)
[2021-02-19] MEDS: ACCU-CHEK COMFORT CURVE STRIP VI SCH ×4 (06:38→21:16)
[2021-02-19] MEDS: InsuLIN REG 1unit/0.01ml Soln (100units/ml) SC SCH ×4 (06:47→21:47)
[2021-02-19 09:00] VITALS: BP 117/55
[2021-02-19] MEDS: FUROSEMIDE 40 MG/4 ML VIAL IV SCH (10:00)
[2021-02-19] MEDS: FAMOTIDINE (10MG/ML) 2ML VL IV SCH (10:18)
[2021-02-19] MEDS: HEPARIN SODIUM (PORCINE) 5000 UNITS/ML 1ML VIAL SC SCH ×2 (10:19→21:24)
[2021-02-19] MEDS: Glucerna Carbsteady SHAKE Vanilla 8oz PO SCH ×2 (12:33→18:03)
[2021-02-19 13:00] VITALS: BP 107/57
[2021-02-19 17:00] VITALS: BP 134/64
[2021-02-19 22:00] VITALS: BP 118/55
[2021-02-20] MEDS: LINEZOLID 600MG/300ML 300 ML IV SCH ×2 (00:38→13:00)
[2021-02-20] MEDS: IPRATROPIUM BROM 0.5 MG/2.5ML INH SOL NEB SCH ×6 (02:40→22:03)
[2021-02-20] MEDS: ALBUTEROL SULF 2.5 MG/0.5ML(0.5%) NEB SOLN NEB SCH ×6 (02:40→22:03)
[2021-02-20 05:00] VITALS: BP 119/60
[2021-02-20] MEDS: SODIUM CHLOR 0.9% PF (SALINE LOCK) 10ML VIAL/SYR IV SCH ×3 (06:18→21:39)
[2021-02-20] MEDS: ACCU-CHEK COMFORT CURVE STRIP VI SCH ×4 (06:44→22:01)
[2021-02-20] MEDS: InsuLIN REG 1unit/0.01ml Soln (100units/ml) SC SCH ×4 (06:45→22:03)
[2021-02-20 08:43] LABS: Basophils # (auto) 0 10 ^3/uL (0-0.2); Basophils % (auto) 0.2 % (0.0-2.0); Eosinophils # (auto) 0.2 10 ^3/uL (0-0.8); Eosinophils % (auto) 1.7 % (0.0-7.0); Hematocrit 41.6 % (41.0-53.0); Hemoglobin 13.2 g/dL (13.5-17.5); Lymphocytes # (auto) 0.7 10 ^3/uL (0.4-5.4); Lymphocytes % (auto) 5.3 % (10.0-50.0); Mean Corpuscular Hemoglobin 27.1 pg (28.0-32.0); Mean Corpuscular Hgb Conc. 31.9 g/dL (32.0-36.0); Mean Corpuscular Volume 85.1 fL (80.0-100.0); Monocytes # (auto) 0.5 10 ^3/uL (0-1.3); Monocytes % (auto) 4.2 % (0.0-12.0); Neutrophils # (auto) 11.4 10 ^3/uL (1.6-8.6); Neutrophils % (auto) 88.6 % (37.0-80.0); Red Blood Cells 4.88 10^6/uL (4.5-5.90); White Blood Cell 12.9 10^3/uL (4.4-10.8)
[2021-02-20 08:58] LABS: BUN/Creatinine Ratio 19.3; Calcium 9.1 mg/dL (8.5-10.1)
[2021-02-20 09:00] VITALS: BP 122/60
[2021-02-20] MEDS: Glucerna Carbsteady SHAKE Vanilla 8oz PO SCH ×3 (10:14→18:16)
[2021-02-20] MEDS: FAMOTIDINE (10MG/ML) 2ML VL IV SCH (10:15)
[2021-02-20] MEDS: HEPARIN SODIUM (PORCINE) 5000 UNITS/ML 1ML VIAL SC SCH ×2 (10:16→21:46)
[2021-02-20 13:00] VITALS: BP 120/57
[2021-02-20 17:00] VITALS: BP 122/66
[2021-02-20] MEDS: NYSTATIN TOPICAL POWDER 15GM TOP SCH (21:45)
[2021-02-20 22:00] VITALS: BP 132/57
[2021-02-21] MEDS: LINEZOLID 600MG/300ML 300 ML IV SCH ×2 (01:03→13:26)
[2021-02-21] MEDS: ALBUTEROL SULF 2.5 MG/0.5ML(0.5%) NEB SOLN NEB SCH ×6 (02:16→22:03)
[2021-02-21] MEDS: IPRATROPIUM BROM 0.5 MG/2.5ML INH SOL NEB SCH ×6 (02:17→22:03)
[2021-02-21 04:55] LABS: Basophils # (auto) 0 10 ^3/uL (0-0.2); Eosinophils # (auto) 0.2 10 ^3/uL (0-0.8); Eosinophils % (auto) 1.6 % (0.0-7.0); Hemoglobin 12.4 g/dL (13.5-17.5); Lymphocytes # (auto) 0.6 10 ^3/uL (0.4-5.4); Mean Corpuscular Volume 85.2 fL (80.0-100.0); Monocytes # (auto) 0.4 10 ^3/uL (0-1.3)
[2021-02-21 04:58] LABS: Basophils % (auto) 0.3 % (0.0-2.0); Hematocrit 39.6 % (41.0-53.0); Lymphocytes % (auto) 5.1 % (10.0-50.0); Mean Corpuscular Hemoglobin 26.6 pg (28.0-32.0); Mean Corpuscular Hgb Conc. 31.2 g/dL (32.0-36.0); Monocytes % (auto) 3.6 % (0.0-12.0); Neutrophils # (auto) 10.2 10 ^3/uL (1.6-8.6); Neutrophils % (auto) 89.4 % (37.0-80.0); Red Blood Cells 4.65 10^6/uL (4.5-5.90); Red Cell Distribution Width 18.2 % (11.8-14.3); White Blood Cell 11.4 10^3/uL (4.4-10.8)
[2021-02-21 05:00] VITALS: BP 112/61
[2021-02-21 05:13] LABS: Albumin 2.3 g/dL (3.4-5.0); BUN/Creatinine Ratio 18.2; Calcium 8.6 mg/dL (8.5-10.1); Potassium 4.2 mmol/L (3.5-5.1)
[2021-02-21 05:15] LABS: Bilirubin, Total 1.4 mg/dL (0.2-1.0); Total Protein 5.4 g/dL (6.4-8.2)
[2021-02-21] MEDS: SODIUM CHLOR 0.9% PF (SALINE LOCK) 10ML VIAL/SYR IV SCH ×3 (05:29→22:04)
[2021-02-21] MEDS: ACCU-CHEK COMFORT CURVE STRIP VI SCH ×3 (06:26→21:42)
[2021-02-21] MEDS: InsuLIN REG 1unit/0.01ml Soln (100units/ml) SC SCH ×4 (06:28→22:04)
[2021-02-21 09:00] VITALS: BP 116/72
[2021-02-21] MEDS ORDERED: DEXTROSE (50%) 50ML SYRG IV PRN (12:15)
[2021-02-21 13:00] VITALS: BP 126/77
[2021-02-21] MEDS: Glucerna Carbsteady SHAKE Vanilla 8oz PO SCH ×3 (13:25→18:53)
[2021-02-21] MEDS: NYSTATIN TOPICAL POWDER 15GM TOP SCH ×2 (13:26→22:04)
[2021-02-21 17:00] VITALS: BP 133/61
[2021-02-21] MEDS ORDERED: ACCU-CHEK COMFORT CURVE STRIP VI SCH (17:00)
[2021-02-21 22:00] VITALS: BP 122/62
[2021-02-22] VITALS (10 sets, daily range): BP systolic 12–131; BP diastolic 48–67
[2021-02-22] MEDS: LINEZOLID 600MG/300ML 300 ML IV SCH ×2 (00:55→13:00)
[2021-02-22] MEDS: IPRATROPIUM BROM 0.5 MG/2.5ML INH SOL NEB SCH ×6 (02:06→22:00)
[2021-02-22] MEDS: ALBUTEROL SULF 2.5 MG/0.5ML(0.5%) NEB SOLN NEB SCH ×6 (02:06→22:00)
[2021-02-22 05:06] LABS: Basophils # (auto) 0 10 ^3/uL (0-0.2); Basophils % (auto) 0.2 % (0.0-2.0); Eosinophils # (auto) 0.2 10 ^3/uL (0-0.8); Eosinophils % (auto) 1.5 % (0.0-7.0); Hematocrit 40.3 % (41.0-53.0); Hemoglobin 13.1 g/dL (13.5-17.5); Lymphocytes # (auto) 0.5 10 ^3/uL (0.4-5.4); Lymphocytes % (auto) 5.1 % (10.0-50.0); Mean Corpuscular Hemoglobin 27.7 pg (28.0-32.0); Mean Corpuscular Hgb Conc. 32.6 g/dL (32.0-36.0); Monocytes # (auto) 0.4 10 ^3/uL (0-1.3); Monocytes % (auto) 3.6 % (0.0-12.0); Neutrophils # (auto) 9.1 10 ^3/uL (1.6-8.6); Neutrophils % (auto) 89.6 % (37.0-80.0); Nucleated Red Blood Cells % 0.1 %; Red Blood Cells 4.74 10^6/uL (4.5-5.90); White Blood Cell 10.2 10^3/uL (4.4-10.8)
[2021-02-22 05:39] LABS: Albumin 2.4 g/dL (3.4-5.0); BUN/Creatinine Ratio 17.8; Calcium 8.8 mg/dL (8.5-10.1); Potassium 4.2 mmol/L (3.5-5.1)
[2021-02-22 05:41] LABS: Bilirubin, Total 1.4 mg/dL (0.2-1.0); Total Protein 5.8 g/dL (6.4-8.2)
[2021-02-22] MEDS: SODIUM CHLOR 0.9% PF (SALINE LOCK) 10ML VIAL/SYR IV SCH ×3 (06:00→23:18)
[2021-02-22] MEDS: InsuLIN REG 1unit/0.01ml Soln (100units/ml) SC SCH ×4 (06:09→22:58)
[2021-02-22] MEDS: ACCU-CHEK COMFORT CURVE STRIP VI SCH ×4 (06:09→23:17)
[2021-02-22 07:12] LABS: INR 1.01 (0.9-1.15); Partial Thromboplastin Time 27.6 sec (23.6-33.0)
[2021-02-22] MEDS: Glucerna Carbsteady SHAKE Vanilla 8oz PO SCH ×3 (08:00→17:36)
[2021-02-22] MEDS: NYSTATIN TOPICAL POWDER 15GM TOP SCH ×2 (08:59→23:02)
[2021-02-22] MEDS ORDERED: HEPARIN IN NS 1000U/500ML (2UNIT/ML) 500 ML BAG/KIT IV ONE (12:00)
[2021-02-22] MEDS ORDERED: IODIXANOL 320MG/ML 100ML BTL IV ONE (12:00)
[2021-02-22] MEDS ORDERED: LIDOCAINE 2%HCL (LOCAL ANESTH.) INJ 20ML MDV IJ ONE (12:00)
[2021-02-22] MEDS ORDERED: MIDAZOLAM HCL 2MG/2ML 2ml VIAL (1mg/ml) ONE (13:02)
[2021-02-22] MEDS ORDERED: ANGIOMAX 250 MG VIAL IV ONE (13:02)
[2021-02-22] MEDS ORDERED: SODIUM CHL 0.9% 0 ML ONE (13:02)
[2021-02-22] MEDS ORDERED: fentaNYL CITRATE 100 MCG/2 ML VL ONE (13:02)
[2021-02-22] MEDS ORDERED: IOHEXOL 350 MG/ML 100ML IJ ONE (13:34)
[2021-02-22] MEDS ORDERED: LIDOCAINE 2%HCL (LOCAL ANESTH.) INJ 20ML MDV ONE (13:59)
[2021-02-22] MEDS ORDERED: VERAPAMIL 2.5MG/ML INJ 2ML VIAL IV ONE (14:08)
[2021-02-22] MEDS ORDERED: HEPARIN SODIUM (PORCINE) 5000 UNITS/ML 1ML VIAL ONE (14:18)
[2021-02-23] MEDS: IPRATROPIUM BROM 0.5 MG/2.5ML INH SOL NEB SCH ×6 (02:00→22:32)
[2021-02-23] MEDS: ALBUTEROL SULF 2.5 MG/0.5ML(0.5%) NEB SOLN NEB SCH ×6 (02:00→22:32)
[2021-02-23] MEDS: LINEZOLID 600MG/300ML 300 ML IV SCH ×2 (02:59→12:37)
[2021-02-23 04:54] VITALS: BP 126/60
[2021-02-23 04:56] LABS: Basophils # (auto) 0 10 ^3/uL (0-0.2); Basophils % (auto) 0.4 % (0.0-2.0); Eosinophils # (auto) 0.2 10 ^3/uL (0-0.8); Eosinophils % (auto) 1.9 % (0.0-7.0); Hematocrit 38.4 % (41.0-53.0); Hemoglobin 12.3 g/dL (13.5-17.5); Lymphocytes # (auto) 0.4 10 ^3/uL (0.4-5.4); Lymphocytes % (auto) 4.7 % (10.0-50.0); Mean Corpuscular Hemoglobin 27.2 pg (28.0-32.0); Mean Corpuscular Hgb Conc. 32.1 g/dL (32.0-36.0); Mean Corpuscular Volume 84.7 fL (80.0-100.0); Monocytes # (auto) 0.4 10 ^3/uL (0-1.3); Monocytes % (auto) 4.2 % (0.0-12.0); Neutrophils % (auto) 88.8 % (37.0-80.0); Nucleated Red Blood Cells % 0.1 %; Red Blood Cells 4.53 10^6/uL (4.5-5.90); Red Cell Distribution Width 17.8 % (11.8-14.3)
[2021-02-23 05:14] LABS: Albumin 2.3 g/dL (3.4-5.0); BUN/Creatinine Ratio 20.4; Calcium 8.7 mg/dL (8.5-10.1); Potassium 4.5 mmol/L (3.5-5.1)
[2021-02-23 05:27] LABS: Bilirubin, Total 1.1 mg/dL (0.2-1.0); Total Protein 5.6 g/dL (6.4-8.2)
[2021-02-23] MEDS: SODIUM CHLOR 0.9% PF (SALINE LOCK) 10ML VIAL/SYR IV SCH ×3 (06:44→21:48)
[2021-02-23] MEDS: ACCU-CHEK COMFORT CURVE STRIP VI SCH ×4 (06:46→21:48)
[2021-02-23] MEDS: InsuLIN REG 1unit/0.01ml Soln (100units/ml) SC SCH ×4 (06:47→21:55)
[2021-02-23 09:00] VITALS: BP_SYST 126; BP_SYST 149; BP_DIAS 63; BP_DIAS 67
[2021-02-23] MEDS: NYSTATIN TOPICAL POWDER 15GM TOP SCH ×2 (09:35→21:48)
[2021-02-23] MEDS: Glucerna Carbsteady SHAKE Vanilla 8oz PO SCH ×3 (09:35→18:39)
[2021-02-23 12:51] VITALS: BP 120/54
[2021-02-23 17:00] VITALS: BP 119/58
[2021-02-23 22:06] VITALS: BP 116/63
[2021-02-24] MEDS: LINEZOLID 600MG/300ML 300 ML IV SCH ×2 (01:19→13:45)
[2021-02-24] MEDS: IPRATROPIUM BROM 0.5 MG/2.5ML INH SOL NEB SCH ×6 (02:41→22:27)
[2021-02-24] MEDS: ALBUTEROL SULF 2.5 MG/0.5ML(0.5%) NEB SOLN NEB SCH ×6 (02:41→22:27)
[2021-02-24 05:02] VITALS: BP 138/65
[2021-02-24 05:32] LABS: Basophils # (auto) 0 10 ^3/uL (0-0.2); Eosinophils # (auto) 0.1 10 ^3/uL (0-0.8); Lymphocytes # (auto) 0.5 10 ^3/uL (0.4-5.4); Lymphocytes % (auto) 6.2 % (10.0-50.0); Monocytes # (auto) 0.4 10 ^3/uL (0-1.3); Monocytes % (auto) 4.5 % (0.0-12.0); Red Blood Cells 4.62 10^6/uL (4.5-5.90)
[2021-02-24] MEDS: SODIUM CHLOR 0.9% PF (SALINE LOCK) 10ML VIAL/SYR IV SCH ×3 (05:32→21:27)
[2021-02-24 05:36] LABS: Basophils % (auto) 0.3 % (0.0-2.0); Eosinophils % (auto) 1.6 % (0.0-7.0); Hematocrit 38.9 % (41.0-53.0); Hemoglobin 12.5 g/dL (13.5-17.5); Mean Corpuscular Hemoglobin 27.1 pg (28.0-32.0); Mean Corpuscular Hgb Conc. 32.2 g/dL (32.0-36.0); Mean Corpuscular Volume 84.2 fL (80.0-100.0); Neutrophils # (auto) 7.1 10 ^3/uL (1.6-8.6); Neutrophils % (auto) 87.4 % (37.0-80.0); Nucleated Red Blood Cells % 0.1 %; Red Cell Distribution Width 18.5 % (11.8-14.3); White Blood Cell 8.1 10^3/uL (4.4-10.8)
[2021-02-24 06:02] LABS: Potassium 4.2 mmol/L (3.5-5.1)
[2021-02-24 06:15] LABS: Albumin 2.4 g/dL (3.4-5.0); Bilirubin, Total 1.3 mg/dL (0.2-1.0); Calcium 8.9 mg/dL (8.5-10.1); Total Protein 5.6 g/dL (6.4-8.2)
[2021-02-24] MEDS: InsuLIN REG 1unit/0.01ml Soln (100units/ml) SC SCH ×4 (06:22→21:28)
[2021-02-24] MEDS: ACCU-CHEK COMFORT CURVE STRIP VI SCH ×4 (06:22→21:26)
[2021-02-24 08:00] VITALS: BP 123/59
[2021-02-24] MEDS: Glucerna Carbsteady SHAKE Vanilla 8oz PO SCH ×3 (10:50→17:59)
[2021-02-24] MEDS: NYSTATIN TOPICAL POWDER 15GM TOP SCH ×2 (10:50→21:26)
[2021-02-24 12:00] VITALS: BP 129/60
[2021-02-24] MEDS ORDERED: IOHEXOL 350 MG/ML 100ML IJ ONE (12:55)
[2021-02-24] MEDS ORDERED: IODIXANOL 320MG/ML 100ML BTL IV ONE (13:18)
[2021-02-24 16:00] VITALS: BP 105/57
[2021-02-24 19:39] VITALS: BP 105/57
[2021-02-24 22:00] VITALS: BP 119/59
[2021-02-25] MEDS: LINEZOLID 600MG/300ML 300 ML IV SCH ×2 (01:05→13:11)
[2021-02-25] MEDS: ALBUTEROL SULF 2.5 MG/0.5ML(0.5%) NEB SOLN NEB SCH ×6 (02:47→21:59)
[2021-02-25] MEDS: IPRATROPIUM BROM 0.5 MG/2.5ML INH SOL NEB SCH ×6 (02:47→21:59)
[2021-02-25 05:00] VITALS: BP 108/57
[2021-02-25 06:02] LABS: Basophils # (auto) 0 10 ^3/uL (0-0.2); Eosinophils # (auto) 0.1 10 ^3/uL (0-0.8); Eosinophils % (auto) 1.8 % (0.0-7.0); Lymphocytes # (auto) 0.5 10 ^3/uL (0.4-5.4); Monocytes # (auto) 0.4 10 ^3/uL (0-1.3)
[2021-02-25 06:06] LABS: Basophils % (auto) 0.5 % (0.0-2.0); Hematocrit 36.8 % (41.0-53.0); Hemoglobin 12.2 g/dL (13.5-17.5); Lymphocytes % (auto) 6.4 % (10.0-50.0); Mean Corpuscular Hemoglobin 27.7 pg (28.0-32.0); Mean Corpuscular Hgb Conc. 33.1 g/dL (32.0-36.0); Mean Corpuscular Volume 83.8 fL (80.0-100.0); Monocytes % (auto) 4.8 % (0.0-12.0); Neutrophils # (auto) 6.6 10 ^3/uL (1.6-8.6); Neutrophils % (auto) 86.5 % (37.0-80.0); Nucleated Red Blood Cells % 0.1 %; Red Blood Cells 4.39 10^6/uL (4.5-5.90); Red Cell Distribution Width 18.3 % (11.8-14.3); White Blood Cell 7.7 10^3/uL (4.4-10.8)
[2021-02-25] MEDS: ACCU-CHEK COMFORT CURVE STRIP VI SCH ×4 (06:10→22:00)
[2021-02-25] MEDS: SODIUM CHLOR 0.9% PF (SALINE LOCK) 10ML VIAL/SYR IV SCH ×2 (06:10→13:12)
[2021-02-25] MEDS: InsuLIN REG 1unit/0.01ml Soln (100units/ml) SC SCH ×4 (06:11→22:00)
[2021-02-25 06:44] LABS: Albumin 2.2 g/dL (3.4-5.0); Potassium 4.5 mmol/L (3.5-5.1)
[2021-02-25 06:46] LABS: BUN/Creatinine Ratio 23.5
[2021-02-25 06:49] LABS: Bilirubin, Total 1.2 mg/dL (0.2-1.0); Total Protein 5.6 g/dL (6.4-8.2)
[2021-02-25 08:00] VITALS: BP 139/60
[2021-02-25] MEDS: Glucerna Carbsteady SHAKE Vanilla 8oz PO SCH ×3 (08:30→18:25)
[2021-02-25] MEDS: NYSTATIN TOPICAL POWDER 15GM TOP SCH (10:45)
[2021-02-25 12:00] VITALS: BP 137/68
[2021-02-25 15:59] VITALS: BP 121/58
[2021-02-25 20:00] VITALS: BP 117/55
[2021-02-25 22:00] VITALS: BP 133/56
[2021-02-26] MEDS: SODIUM CHLOR 0.9% PF (SALINE LOCK) 10ML VIAL/SYR IV SCH ×4 (02:04→23:05)
[2021-02-26] MEDS: NYSTATIN TOPICAL POWDER 15GM TOP SCH ×3 (02:04→23:05)
[2021-02-26] MEDS: LINEZOLID 600MG/300ML 300 ML IV SCH ×2 (02:05→12:57)
[2021-02-26 05:00] VITALS: BP 128/66
[2021-02-26] MEDS: ALBUTEROL SULF 2.5 MG/0.5ML(0.5%) NEB SOLN NEB SCH ×5 (06:07→22:10)
[2021-02-26] MEDS: IPRATROPIUM BROM 0.5 MG/2.5ML INH SOL NEB SCH ×5 (06:07→22:10)
[2021-02-26] MEDS: InsuLIN REG 1unit/0.01ml Soln (100units/ml) SC SCH ×4 (06:08→23:06)
[2021-02-26] MEDS: ACCU-CHEK COMFORT CURVE STRIP VI SCH ×4 (06:47→23:05)
[2021-02-26 06:55] LABS: Basophils # (auto) 0 10 ^3/uL (0-0.2); Basophils % (auto) 0.5 % (0.0-2.0); Eosinophils # (auto) 0.1 10 ^3/uL (0-0.8); Eosinophils % (auto) 2.3 % (0.0-7.0); Lymphocytes # (auto) 0.5 10 ^3/uL (0.4-5.4); Lymphocytes % (auto) 9.3 % (10.0-50.0); Monocytes # (auto) 0.3 10 ^3/uL (0-1.3); Monocytes % (auto) 5.7 % (0.0-12.0); Neutrophils # (auto) 4.7 10 ^3/uL (1.6-8.6); Neutrophils % (auto) 82.2 % (37.0-80.0)
[2021-02-26 06:57] LABS: Hematocrit 36.4 % (41.0-53.0); Hemoglobin 11.6 g/dL (13.5-17.5); Mean Corpuscular Hemoglobin 26.8 pg (28.0-32.0); Mean Corpuscular Hgb Conc. 31.8 g/dL (32.0-36.0); Mean Corpuscular Volume 84.2 fL (80.0-100.0); Red Blood Cells 4.33 10^6/uL (4.5-5.90); Red Cell Distribution Width 18.9 % (11.8-14.3); White Blood Cell 5.7 10^3/uL (4.4-10.8)
[2021-02-26 07:16] LABS: BUN/Creatinine Ratio 18.7; Calcium 8.9 mg/dL (8.5-10.1); Potassium 4.2 mmol/L (3.5-5.1)
[2021-02-26 07:18] LABS: Bilirubin, Total 1.3 mg/dL (0.2-1.0); Total Protein 5.4 g/dL (6.4-8.2)
[2021-02-26] MEDS: Glucerna Carbsteady SHAKE Vanilla 8oz PO SCH ×3 (08:15→18:55)
[2021-02-26 09:00] VITALS: BP 118/51
[2021-02-26 13:00] VITALS: BP 114/48
[2021-02-26 17:00] VITALS: BP 107/48
[2021-02-26 21:58] VITALS: BP 120/58
[2021-02-27] MEDS: LINEZOLID 600MG/300ML 300 ML IV SCH ×2 (01:07→12:59)
[2021-02-27 04:36] LABS: Basophils # (auto) 0 10 ^3/uL (0-0.2); Eosinophils # (auto) 0.1 10 ^3/uL (0-0.8); Hemoglobin 11.6 g/dL (13.5-17.5); Lymphocytes # (auto) 0.6 10 ^3/uL (0.4-5.4); Monocytes # (auto) 0.3 10 ^3/uL (0-1.3); Red Cell Distribution Width 17.9 % (11.8-14.3); White Blood Cell 5.1 10^3/uL (4.4-10.8)
[2021-02-27 04:39] LABS: Basophils % (auto) 0.8 % (0.0-2.0); Eosinophils % (auto) 2.6 % (0.0-7.0); Hematocrit 35.9 % (41.0-53.0); Lymphocytes % (auto) 11.4 % (10.0-50.0); Mean Corpuscular Hemoglobin 26.9 pg (28.0-32.0); Mean Corpuscular Hgb Conc. 32.2 g/dL (32.0-36.0); Mean Corpuscular Volume 83.4 fL (80.0-100.0); Monocytes % (auto) 5.9 % (0.0-12.0); Neutrophils % (auto) 79.3 % (37.0-80.0); Red Blood Cells 4.31 10^6/uL (4.5-5.90)
[2021-02-27 04:59] LABS: Albumin 2.2 g/dL (3.4-5.0); Calcium 8.9 mg/dL (8.5-10.1); Potassium 4.4 mmol/L (3.5-5.1)
[2021-02-27 05:00] VITALS: BP 122/62
[2021-02-27 05:02] LABS: BUN/Creatinine Ratio 24.8
[2021-02-27 05:11] LABS: Bilirubin, Total 0.9 mg/dL (0.2-1.0); Total Protein 5.7 g/dL (6.4-8.2)
[2021-02-27] MEDS: ACCU-CHEK COMFORT CURVE STRIP VI SCH ×4 (06:31→22:26)
[2021-02-27] MEDS: SODIUM CHLOR 0.9% PF (SALINE LOCK) 10ML VIAL/SYR IV SCH ×3 (06:31→22:26)
[2021-02-27] MEDS: InsuLIN REG 1unit/0.01ml Soln (100units/ml) SC SCH ×4 (06:32→22:31)
[2021-02-27] MEDS: ALBUTEROL SULF 2.5 MG/0.5ML(0.5%) NEB SOLN NEB SCH ×5 (06:55→22:09)
[2021-02-27] MEDS: IPRATROPIUM BROM 0.5 MG/2.5ML INH SOL NEB SCH ×5 (06:55→22:09)
[2021-02-27] MEDS: Glucerna Carbsteady SHAKE Vanilla 8oz PO SCH ×3 (08:24→18:19)
[2021-02-27 09:00] VITALS: BP 111/66
[2021-02-27] MEDS: NYSTATIN TOPICAL POWDER 15GM TOP SCH ×2 (10:05→22:26)
[2021-02-27 13:00] VITALS: BP 125/59
[2021-02-27 16:38] VITALS: BP 130/69
[2021-02-27 22:00] VITALS: BP 119/54
[2021-02-28] MEDS: LINEZOLID 600MG/300ML 300 ML IV SCH (00:53)
[2021-02-28] MEDS: ALBUTEROL SULF 2.5 MG/0.5ML(0.5%) NEB SOLN NEB SCH ×4 (02:00→13:12)
[2021-02-28] MEDS: IPRATROPIUM BROM 0.5 MG/2.5ML INH SOL NEB SCH ×4 (02:00→13:11)
[2021-02-28 04:20] VITALS: BP 119/54
[2021-02-28 05:00] VITALS: BP 124/67
[2021-02-28] MEDS: ACCU-CHEK COMFORT CURVE STRIP VI SCH ×2 (06:27→09:37)
[2021-02-28] MEDS: SODIUM CHLOR 0.9% PF (SALINE LOCK) 10ML VIAL/SYR IV SCH ×2 (06:27→14:22)
[2021-02-28] MEDS: InsuLIN REG 1unit/0.01ml Soln (100units/ml) SC SCH ×2 (06:32→09:36)
[2021-02-28] MEDS: Glucerna Carbsteady SHAKE Vanilla 8oz PO SCH ×2 (08:00→12:00)
[2021-02-28 09:00] VITALS: BP 124/61
[2021-02-28] MEDS: NYSTATIN TOPICAL POWDER 15GM TOP SCH (09:37)
[2021-02-28 11:18] VITALS: BP 124/61
[2021-02-28 13:00] VITALS: BP 111/57
== END 2021-02-28 15:15 | disposition home or self-care (01) | DRG 870 ==
LOC: EDBD 18:48 → ER 18:51 → TELE 23:23 → ICU WEST 02-07 15:03 → OVERFLOW 02-07 15:37 → ICU WEST 02-09 19:10 → TELE-CENTR 02-14 22:31
PROVIDERS: ADMIT Nurse Practitioner Family; ATTEND Family Medicine
PROC: 5A09357 Assistance with Respiratory Ventilation, Less than 24 Consecutive Hours, Continuous Positive Airway Pressure (ICD-10-PCS; 2021-02-06)
PROC: 5A1955Z Respiratory Ventilation, Greater than 96 Consecutive Hours (ICD-10-PCS; principal; 2021-02-07)
PROC: 4A143B0 Monitoring of Venous Pressure, Central, Percutaneous Approach (ICD-10-PCS; 2021-02-07)
PROC: 02HV33Z Insertion of Infusion Device into Superior Vena Cava, Percutaneous Approach (ICD-10-PCS; 2021-02-07)
PROC: 0BH17EZ Insertion of Endotracheal Airway into Trachea, Via Natural or Artificial Opening (ICD-10-PCS; 2021-02-07)
PROC: 5A09357 Assistance with Respiratory Ventilation, Less than 24 Consecutive Hours, Continuous Positive Airway Pressure (ICD-10-PCS; 2021-02-12)
PROC: B211YZZ Fluoroscopy of Multiple Coronary Arteries using Other Contrast (ICD-10-PCS; 2021-02-22)
DX: A41.9 Sepsis, unspecified organism (principal); N17.0 Acute kidney failure with tubular necrosis; J18.9 Pneumonia, unspecified organism; I50.43 Acute on chronic combined systolic (congestive) and diastolic (congestive) heart failure; J96.01 Acute respiratory failure with hypoxia; E87.1 Hypo-osmolality and hyponatremia; D68.59 Other primary thrombophilia; E87.4 Mixed disorder of acid-base balance; I13.0 Hypertensive heart and chronic kidney disease with heart failure and stage 1 through stage 4 chronic kidney disease, or unspecified chronic kidney disease; I48.92 Unspecified atrial flutter; J44.1 Chronic obstructive pulmonary disease with (acute) exacerbation; J98.11 Atelectasis; J44.0 Chronic obstructive pulmonary disease with (acute) lower respiratory infection; N39.0 Urinary tract infection, site not specified; I74.5 Embolism and thrombosis of iliac artery; J91.8 Pleural effusion in other conditions classified elsewhere; E87.5 Hyperkalemia; N18.9 Chronic kidney disease, unspecified; E88.09 Other disorders of plasma-protein metabolism, not elsewhere classified; I48.91 Unspecified atrial fibrillation; I49.5 Sick sinus syndrome; E03.9 Hypothyroidism, unspecified; Z20.822 Contact with and (suspected) exposure to COVID-19; E11.22 Type 2 diabetes mellitus with diabetic chronic kidney disease; E78.5 Hyperlipidemia, unspecified; E83.41 Hypermagnesemia; I25.10 Atherosclerotic heart disease of native coronary artery without angina pectoris; N43.3 Hydrocele, unspecified; A49.01 Methicillin susceptible Staphylococcus aureus infection, unspecified site; D69.6 Thrombocytopenia, unspecified; E11.51 Type 2 diabetes mellitus with diabetic peripheral angiopathy without gangrene; E66.01 Morbid (severe) obesity due to excess calories; E87.6 Hypokalemia; I25.5 Ischemic cardiomyopathy; Z93.3 Colostomy status; Z88.1 Allergy status to other antibiotic agents; Z68.31 Body mass index [BMI] 31.0-31.9, adult; Z89.511 Acquired absence of right leg below knee; Z95.810 Presence of automatic (implantable) cardiac defibrillator; Z85.038 Personal history of other malignant neoplasm of large intestine
CPT/HCPCS: 36415; 36600; 71045; 71275; 76604; 76775; 76870; 78582; 80048; 80053; 81001; 82805; 82962; 83036; 83735; 83880; 84484; 85007; 85025; 85027; 85379; 85610; 85730; 86850; 86900; 86901; 87040; 87070; 87077; 87081; 87086; 87088; 87186; 87205; 87426; 93005; 93306; 93454; 93926; 93970; 94002; 94003; 94640; 94660; 96365; 96375; 97110; 97163; 97530; 99152; 99153; A4618; C1769; G0378; J0330; J1815; J1956; J2250; J2405; J3480; J3490; Q9967

== ENCOUNTER → 2021-05-17 | Outpatient (CLI) | payer MEDICARE, OTHER ==
[~2021-05-17] MED LIST changes: -AMIO200T5 PO; +AMIO200T6 PO
== END | disposition home or self-care (01) ==
LOC: LAB 16:27
PROVIDERS: ATTEND Internal Medicine
DX: E11.9 Type 2 diabetes mellitus without complications (principal)
CPT/HCPCS: 87205

== ENCOUNTER 2024-01-23 20:53 | Inpatient (IN) | payer MEDICARE, OTHER ==
[~2024-01-23] VITALS: Ht 177.8 cm; Wt 93.5 kg
[~2024-01-23 20:53] MED LIST changes: +AMIO200T50 PO; -AMIO200T6 PO; -APIX2.5T OR; +APIX2.5T PO; +ATOR20TA PO; +CARV3.1240 PO; +CILO50TA2 PO; +FLUT1AER3 INH; +FURO20TA3 PO; +INSUINJ37 SC
[2024-01-23] MEDS: ALBUTEROL SULF 2.5 MG/0.5ML(0.5%) NEB SOLN NEB ONE (21:17)
[2024-01-23] MEDS: IPRATROPIUM BROM 0.5 MG/2.5ML INH SOL NEB ONE (21:17)
[2024-01-23 21:30] VITALS: O2SAT 97
[2024-01-23 21:36] LABS: Hematocrit 40.9 % (41.0-53.0); Hemoglobin 13.5 g/dL (13.5-17.5); Mean Corpuscular Hemoglobin 27.7 pg (28.0-32.0); Mean Corpuscular Hgb Conc. 33.1 g/dL (32.0-36.0); Mean Corpuscular Volume 83.6 fL (80.0-100.0); Platelet Count (auto) 183 10^3/uL (140-450); Red Blood Cells 4.89 10^6/uL (4.5-5.90); White Blood Cell 8.6 10^3/uL (4.4-10.8)
[2024-01-23 21:39] LABS: Basophils % (manual) 0 (0.0-2.0); Blast Cells 0; Eosinophils % (manual) 0 (0-7); Promyelocytes % 0; Reactive Lymphocytes 0
[2024-01-23 21:51] LABS: Alanine Aminotransferase 42 U/L (7-40); Albumin 3.9 g/dL (3.2-4.8); Alkaline Phosphatase 200 U/L (46-116); Anion Gap 12 (5-15); Aspartate Aminotransferase 42 U/L (13-40); BUN/Creatinine Ratio 20.7 (10.0-20.0); Bilirubin, Total 1.5 mg/dL (0.2-1.0); Blood Urea Nitrogen 42 mg/dL (9-23); Carbon Dioxide 24 mmol/L (20-30); Chloride 96 mmol/L (98-107); Glucose 214 mg/dL (74-106); Magnesium 1.9 mg/dL (1.6-2.6); Potassium 4.3 mmol/L (3.5-5.1); Sodium 132 mmol/L (136-145); Total Protein 7.1 g/dL (5.7-8.2)
[2024-01-23 22:09] LABS: Band Neutrophils % (manual) 20; Lymphocytes % (manual) 2 (10.0-50.0); Metamyelocytes % 1; Monocytes % (manual) 2 (0-12); Myelocytes % 1; Platelet Estimate Adequate
[2024-01-23 22:10] LABS: Anisocytosis Slight; Large Platelets FEW
[2024-01-23] MEDS: SODIUM CHLORIDE 0.9% 500 ML IV ONE (22:22)
[2024-01-23] MEDS: methylPREDNISolone SOD SUCC 125 MG/2 ML VL IV ONE (22:28)
[2024-01-23 22:41] LABS: COVID19 ANTIGEN SOFIA FIA NEGATIVE (NEGATIVE); Rapid Influenza A Negative (Negative); Rapid Influenza B Negative (Negative)
[2024-01-23 22:50] VITALS: BP 118/34; PULSE 71; O2SAT 93
[2024-01-23 23:44] LABS: Base Excess -1.5 mmol/L (-2.0-3.0)
[2024-01-24 00:20] VITALS: BP 100/40; PULSE 74; O2SAT 94
[2024-01-24] MEDS ORDERED: NITROGLYCERIN 0.4 MG SL TAB SL PRN (01:15)
[2024-01-24] MEDS ORDERED: MORPHINE SULFATE INJ 2 MG/ml SYRG IV PRN (01:15)
[2024-01-24] MEDS ORDERED: DEXTROSE (50%) 50ML SYRG IV PRN (01:15)
[2024-01-24] MEDS: FUROSEMIDE 40 MG/4 ML VIAL IV ONE (02:06)
[2024-01-24] MEDS: ONDANSETRON HCL 4 MG/2 ML VIAL IV PRN (03:05)
[2024-01-24] MEDS: HYDROcodone-ACET 5/325MG TAB PO PRN (03:05)
[2024-01-24 03:17] LABS: Urine Bacteria FEW /hpf (None Seen); Urine Blood 1+ /uL (Negative); Urine Clarity Turbid (Clear); Urine Color Yellow (Yellow); Urine Hyaline Cast FEW /lpf (0 - 2); Urine Protein, UAD TRACE (Negative); Urine Specific Gravity 1.012 (1.001-1.035); Urine Urobilinogen Normal (Negative); Urine WBC 36 /hpf (0 - 3); Urine WBC Clumps PRESENT /hpf (None Seen)
[2024-01-24 03:33] VITALS: BP 102/40; PULSE 79; RESP 16; TEMP 98.1; O2SAT 94
[2024-01-24] MEDS: ACCU-CHEK COMFORT CURVE STRIP VI SCH (06:02)
[2024-01-24] MEDS: InsuLIN REG 1unit/0.01ml Soln (100units/ml) SC SCH (06:09)
[2024-01-24 08:58] LABS: Hepatitis B Surface Antigen Negative (Negative)
[2024-01-24 09:00] VITALS: O2SAT 97
[2024-01-24 09:18] LABS: Hepatitis A Ab IgM Negative
[2024-01-24 09:20] LABS: Hepatitis B Core IgM Negative; Hepatitis C Antibody Negative (Negative)
[2024-01-24 09:50] VITALS: O2SAT 95
[2024-01-24] MEDS: CARVEDILOL 3.125 MG TAB PO SCH (10:00)
[2024-01-24] MEDS: APIXABAN 2.5 MG TAB PO SCH (12:35)
[2024-01-24] MEDS: CLOPIDOGREL BISULFATE 75 MG TAB PO SCH (12:36)
[2024-01-24] MEDS ORDERED: CLINDAMYCIN 300MG IV 50 ML IV SCH (14:00)
[2024-01-24] MEDS: CLINDAMYCIN 300MG IV 50 ML IV SCH (16:11)
[2024-01-24] MEDS: levoFLOXacin 250MG 50 ML IV SCH (17:00)
[2024-01-24 17:55] VITALS: O2SAT 96
[2024-01-24] MEDS: FUROSEMIDE 20 MG/2 ML VIAL IV SCH (18:00)
[2024-01-24 19:55] VITALS: PULSE 71; RESP 17; O2SAT 96
[2024-01-24] MEDS ORDERED: INSULIN LANTUS (GLARGINE) 1 /0.01ml (100units/ml) SC SCH (22:00)
[2024-01-24] MEDS: ATORVASTATIN 20 MG TAB PO SCH (22:36)
[2024-01-24] MEDS: INSULIN LANTUS (GLARGINE) 1 /0.01ml (100units/ml) SC SCH (22:37)
[2024-01-25] VITALS (8 sets, daily range): BP systolic 90–145; BP diastolic 36–69; PULSE 70–77; RESP 20; O2SAT 95–99
[2024-01-25 04:31] LABS: Hemoglobin 11.8 g/dL (13.5-17.5); Mean Corpuscular Hemoglobin 26.9 pg (28.0-32.0)
[2024-01-25 04:34] LABS: Hematocrit 35.6 % (41.0-53.0); Mean Corpuscular Volume 81.4 fL (80.0-100.0); Platelet Count (auto) 195 10^3/uL (140-450); Red Blood Cells 4.38 10^6/uL (4.5-5.90); Red Cell Distribution Width 19.2 % (11.8-14.3); White Blood Cell 24.9 10^3/uL (4.4-10.8)
[2024-01-25 04:48] LABS: Band Neutrophils % (manual) 0; Basophils % (manual) 0 (0.0-2.0); Blast Cells 0; Eosinophils % (manual) 0 (0-7); Metamyelocytes % 0; Myelocytes % 0; Promyelocytes % 0; Reactive Lymphocytes 0
[2024-01-25 04:49] LABS: Alanine Aminotransferase 31 U/L (7-40); Albumin 3.3 g/dL (3.2-4.8); Alkaline Phosphatase 122 U/L (46-116); Anion Gap 6 (5-15); Aspartate Aminotransferase 24 U/L (13-40); BUN/Creatinine Ratio 29.9 (10.0-20.0); Calcium 8.9 mg/dL (8.7-10.4); Carbon Dioxide 25 mmol/L (20-30); Chloride 99 mmol/L (98-107); Glucose 275 mg/dL (74-106); Potassium 4.2 mmol/L (3.5-5.1); Sodium 130 mmol/L (136-145)
[2024-01-25 04:50] LABS: Bilirubin, Total 0.8 mg/dL (0.2-1.0); Total Protein 6.2 g/dL (5.7-8.2)
[2024-01-25 04:51] LABS: Blood Urea Nitrogen 61 mg/dL (9-23)
[2024-01-25 05:17] LABS: Lymphocytes % (manual) 4 (10.0-50.0); Monocytes % (manual) 9 (0-12); Platelet Estimate Adequate
[2024-01-25] MEDS ORDERED: LEVOTHYROXINE SODIUM 25 MCG TAB PO SCH (06:00)
[2024-01-25] MEDS: LEVOTHYROXINE SODIUM 25 MCG TAB PO SCH (06:20)
[2024-01-25 12:24] LABS: Base Excess -2.2 mmol/L (-2.0-3.0)
[2024-01-25] MEDS ORDERED: DEXTROSE (50%) 50ML SYRG IV PRN (12:45)
[2024-01-25] MEDS: ACCU-CHEK COMFORT CURVE STRIP VI SCH (17:05)
[2024-01-25] MEDS: InsuLIN REG 1unit/0.01ml Soln (100units/ml) SC SCH ×2 (17:14→23:00)
[2024-01-25] MEDS: INSULIN LANTUS (GLARGINE) 1 /0.01ml (100units/ml) SC SCH (23:00)
[2024-01-26] VITALS (10 sets, daily range): BP systolic 101–143; BP diastolic 49–71; PULSE 64–79; RESP 17–20; TEMP 97.4–97.9; O2SAT 95–98
[2024-01-26 04:17] LABS: Basophils # (auto) 0 10 ^3/uL (0-0.2); Eosinophils # (auto) 0.1 10 ^3/uL (0-0.8); Hemoglobin 11.6 g/dL (13.5-17.5); Lymphocytes # (auto) 0.6 10 ^3/uL (0.4-5.4); Monocytes # (auto) 1.3 10 ^3/uL (0-1.3); Neutrophils % (auto) 91.1 % (37.0-80.0)
[2024-01-26 04:19] LABS: Basophils % (auto) 0.1 % (0.0-2.0); Eosinophils % (auto) 0.4 % (0.0-7.0); Hematocrit 35.5 % (41.0-53.0); Lymphocytes % (auto) 2.5 % (10.0-50.0); Mean Corpuscular Hemoglobin 26.8 pg (28.0-32.0); Mean Corpuscular Hgb Conc. 32.8 g/dL (32.0-36.0); Mean Corpuscular Volume 81.6 fL (80.0-100.0); Monocytes % (auto) 5.9 % (0.0-12.0); Neutrophils # (auto) 20.9 10 ^3/uL (1.6-8.6); Platelet Count (auto) 198 10^3/uL (140-450); Red Blood Cells 4.35 10^6/uL (4.5-5.90); Red Cell Distribution Width 18.9 % (11.8-14.3)
[2024-01-26 04:21] LABS: Chloride 100 mmol/L (98-107); Potassium 4.1 mmol/L (3.5-5.1); Sodium 134 mmol/L (136-145)
[2024-01-26 04:22] LABS: Anion Gap 7 (5-15); Calcium 8.9 mg/dL (8.7-10.4); Carbon Dioxide 27 mmol/L (20-30)
[2024-01-26 04:27] LABS: BUN/Creatinine Ratio 36.2 (10.0-20.0); Glucose 177 mg/dL (74-106)
[2024-01-26 04:40] LABS: Blood Urea Nitrogen 72 mg/dL (9-23)
[2024-01-27] VITALS (14 sets, daily range): BP systolic 105–143; BP diastolic 45–63; PULSE 64–78; RESP 16–22; TEMP 97.6–97.9; O2SAT 97–99
[2024-01-27] MEDS: guaiFENesin-DM 100/10mg/5ml SYR PO PRN (00:08)
[2024-01-27] MEDS: ALBUTEROL SULF 2.5 MG/0.5ML(0.5%) NEB SOLN NEB PRN (02:07)
[2024-01-27] MEDS: IPRATROPIUM BROM 0.5 MG/2.5ML INH SOL NEB PRN (02:07)
[2024-01-28] VITALS (12 sets, daily range): BP systolic 102–128; BP diastolic 36–55; PULSE 59–81; RESP 17–19; TEMP 97.7–98.6; O2SAT 93–99
[2024-01-28 05:16] LABS: Basophils # (auto) 0 10 ^3/uL (0-0.2); Basophils % (auto) 0.1 % (0.0-2.0); Eosinophils # (auto) 0.2 10 ^3/uL (0-0.8); Eosinophils % (auto) 0.8 % (0.0-7.0); Hematocrit 37.6 % (41.0-53.0); Hemoglobin 12.5 g/dL (13.5-17.5); Lymphocytes # (auto) 0.6 10 ^3/uL (0.4-5.4); Lymphocytes % (auto) 2.8 % (10.0-50.0); Mean Corpuscular Hemoglobin 27.3 pg (28.0-32.0); Mean Corpuscular Hgb Conc. 33.2 g/dL (32.0-36.0); Mean Corpuscular Volume 82.2 fL (80.0-100.0); Monocytes # (auto) 0.9 10 ^3/uL (0-1.3); Monocytes % (auto) 4.2 % (0.0-12.0); Neutrophils # (auto) 19.6 10 ^3/uL (1.6-8.6); Neutrophils % (auto) 92.1 % (37.0-80.0); Nucleated Red Blood Cells % 0.1 %; Platelet Count (auto) 228 10^3/uL (140-450); Red Blood Cells 4.58 10^6/uL (4.5-5.90); Red Cell Distribution Width 18.7 % (11.8-14.3); White Blood Cell 21.3 10^3/uL (4.4-10.8)
[2024-01-28 05:32] LABS: Alanine Aminotransferase 21 U/L (7-40); Albumin 3.5 g/dL (3.2-4.8); Alkaline Phosphatase 108 U/L (46-116); Anion Gap 4 (5-15); Aspartate Aminotransferase 12 U/L (13-40); BUN/Creatinine Ratio 29.6 (10.0-20.0); Blood Urea Nitrogen 48 mg/dL (9-23); Calcium 9.1 mg/dL (8.7-10.4); Carbon Dioxide 34 mmol/L (20-30); Chloride 100 mmol/L (98-107); Glucose 130 mg/dL (74-106); Potassium 3.5 mmol/L (3.5-5.1); Sodium 138 mmol/L (136-145)
[2024-01-28 05:33] LABS: Total Protein 6.3 g/dL (5.7-8.2)
[2024-01-28] MEDS: ACETAMINOPHEN 325 MG TAB PO PRN (15:53)
[2024-01-29] VITALS (10 sets, daily range): BP systolic 114–134; BP diastolic 47–65; PULSE 70–80; RESP 16–20; TEMP 97.9–98.4; O2SAT 92–97
[2024-01-29] MEDS: AMPICILLIN & SULBACTAM SODIUM 3 GM in SODIUM CHL 0.9% 100 ML IV SCH (15:04)
[2024-01-30] VITALS (12 sets, daily range): BP systolic 120–145; BP diastolic 51–60; PULSE 66–82; RESP 16–20; TEMP 97.4–98.4; O2SAT 93–99
[2024-01-30 05:29] LABS: Basophils # (auto) 0 10 ^3/uL (0-0.2); Basophils % (auto) 0.1 % (0.0-2.0); Eosinophils # (auto) 0.1 10 ^3/uL (0-0.8); Hematocrit 36.1 % (41.0-53.0); Hemoglobin 11.9 g/dL (13.5-17.5); Lymphocytes # (auto) 0.6 10 ^3/uL (0.4-5.4); Lymphocytes % (auto) 3.9 % (10.0-50.0); Mean Corpuscular Hemoglobin 27.3 pg (28.0-32.0); Mean Corpuscular Volume 82.5 fL (80.0-100.0); Monocytes # (auto) 0.7 10 ^3/uL (0-1.3); Monocytes % (auto) 4.4 % (0.0-12.0); Neutrophils # (auto) 14.2 10 ^3/uL (1.6-8.6); Neutrophils % (auto) 90.6 % (37.0-80.0); Nucleated Red Blood Cells % 0.1 %; Platelet Count (auto) 237 10^3/uL (140-450); Red Blood Cells 4.38 10^6/uL (4.5-5.90); Red Cell Distribution Width 18.6 % (11.8-14.3); White Blood Cell 15.6 10^3/uL (4.4-10.8)
[2024-01-30 05:38] LABS: Anion Gap 7 (5-15); Carbon Dioxide 31 mmol/L (20-30); Chloride 99 mmol/L (98-107); Potassium 3.5 mmol/L (3.5-5.1); Sodium 137 mmol/L (136-145)
[2024-01-30 05:40] LABS: Calcium 9.1 mg/dL (8.7-10.4)
[2024-01-30 05:44] LABS: BUN/Creatinine Ratio 20.7 (10.0-20.0); Glucose 118 mg/dL (74-106)
[2024-01-30 05:46] LABS: Blood Urea Nitrogen 30 mg/dL (9-23)
[2024-01-30] MEDS: METOCLOPRAMIDE HCL 5MG/ml INJ 2ml VIAL IV ONE (15:33)
[2024-01-30] MEDS: DOCUSATE SOD 100 MG CAP PO ONE (15:33)
[2024-01-31] VITALS (11 sets, daily range): BP systolic 112–158; BP diastolic 53–76; PULSE 67–80; RESP 18–20; TEMP 97.6–98.7; O2SAT 96–98
[2024-01-31 06:19] LABS: Chloride 99 mmol/L (98-107); Potassium 3.4 mmol/L (3.5-5.1); Sodium 134 mmol/L (136-145)
[2024-01-31 06:20] LABS: Anion Gap 6 (5-15); Calcium 8.6 mg/dL (8.7-10.4); Carbon Dioxide 29 mmol/L (20-30)
[2024-01-31 06:25] LABS: BUN/Creatinine Ratio 20.7 (10.0-20.0); Glucose 103 mg/dL (74-106)
[2024-01-31 06:31] LABS: Blood Urea Nitrogen 40 mg/dL (9-23)
[2024-01-31 06:46] LABS: Basophils # (auto) 0 10 ^3/uL (0-0.2); Basophils % (auto) 0.4 % (0.0-2.0); Eosinophils # (auto) 0.2 10 ^3/uL (0-0.8); Eosinophils % (auto) 1.5 % (0.0-7.0); Hematocrit 33.3 % (41.0-53.0); Hemoglobin 11.1 g/dL (13.5-17.5); Lymphocytes # (auto) 0.6 10 ^3/uL (0.4-5.4); Lymphocytes % (auto) 5.6 % (10.0-50.0); Mean Corpuscular Hemoglobin 27.2 pg (28.0-32.0); Mean Corpuscular Hgb Conc. 33.2 g/dL (32.0-36.0); Monocytes # (auto) 0.7 10 ^3/uL (0-1.3); Monocytes % (auto) 6.6 % (0.0-12.0); Neutrophils # (auto) 9.3 10 ^3/uL (1.6-8.6); Neutrophils % (auto) 85.9 % (37.0-80.0); Nucleated Red Blood Cells % 0.1 %; Platelet Count (auto) 224 10^3/uL (140-450); Red Blood Cells 4.06 10^6/uL (4.5-5.90); Red Cell Distribution Width 18.9 % (11.8-14.3); White Blood Cell 10.9 10^3/uL (4.4-10.8)
[2024-01-31] MEDS: FUROSEMIDE 20 MG TAB PO SCH (10:10)
[2024-02-01] VITALS (9 sets, daily range): BP systolic 113–135; BP diastolic 41–64; PULSE 66–99; RESP 17–20; TEMP 37.2; O2SAT 94–100
[2024-02-01] MEDS: PANTOPRAZOLE 40 MG TAB PO SCH (05:43)
[2024-02-01] MEDS ORDERED: BACDST PO (14:50)
[2024-02-01] MEDS ORDERED: NYSTOIN4 TOP (14:50)
== END 2024-02-01 18:40 | disposition home health service (06) | DRG 871 ==
LOC: ER 20:53 → EDBD 20:53 → TELE 01-24 01:11 → TELE-WESTW 01-26 09:58
PROVIDERS: ADMIT Nurse Practitioner; ATTEND Nurse Practitioner Acute Care
PROC: 5A09357 Assistance with Respiratory Ventilation, Less than 24 Consecutive Hours, Continuous Positive Airway Pressure (ICD-10-PCS; principal; 2024-01-24)
PROC: 5A09357 Assistance with Respiratory Ventilation, Less than 24 Consecutive Hours, Continuous Positive Airway Pressure (ICD-10-PCS; 2024-01-25)
PROC: 5A09357 Assistance with Respiratory Ventilation, Less than 24 Consecutive Hours, Continuous Positive Airway Pressure (ICD-10-PCS; 2024-01-28)
PROC: 5A09357 Assistance with Respiratory Ventilation, Less than 24 Consecutive Hours, Continuous Positive Airway Pressure (ICD-10-PCS; 2024-01-30)
DX: A41.9 Sepsis, unspecified organism (principal); I50.23 Acute on chronic systolic (congestive) heart failure; J96.21 Acute and chronic respiratory failure with hypoxia; J96.22 Acute and chronic respiratory failure with hypercapnia; J44.1 Chronic obstructive pulmonary disease with (acute) exacerbation; N17.9 Acute kidney failure, unspecified; L03.311 Cellulitis of abdominal wall; R64 Cachexia; I13.0 Hypertensive heart and chronic kidney disease with heart failure and stage 1 through stage 4 chronic kidney disease, or unspecified chronic kidney disease; E11.22 Type 2 diabetes mellitus with diabetic chronic kidney disease; R74.01 Elevation of levels of liver transaminase levels; E11.51 Type 2 diabetes mellitus with diabetic peripheral angiopathy without gangrene; E66.01 Morbid (severe) obesity due to excess calories; E78.5 Hyperlipidemia, unspecified; G47.33 Obstructive sleep apnea (adult) (pediatric); I87.8 Other specified disorders of veins; L89.159 Pressure ulcer of sacral region, unspecified stage; N18.32 Chronic kidney disease, stage 3b; I25.10 Atherosclerotic heart disease of native coronary artery without angina pectoris; I25.5 Ischemic cardiomyopathy; I87.2 Venous insufficiency (chronic) (peripheral); Z89.511 Acquired absence of right leg below knee; Z93.3 Colostomy status; Z68.29 Body mass index [BMI] 29.0-29.9, adult; Z79.4 Long term (current) use of insulin
CPT/HCPCS: 36415; 36600; 71045; 71250; 78582; 80048; 80053; 80074; 81001; 82550; 82805; 82962; 83036; 83735; 83880; 84443; 84484; 85007; 85025; 85027; 85379; 87040; 87077; 87086; 87186; 87205; 87426; 87804; 93005; 93306; 93926; 94640; 94660; 99291; G0378; J1815; J2405; J3490

== ENCOUNTER 2024-09-11 17:43 | Inpatient (IN) | payer MEDICARE, OTHER ==
[~2024-09-11] VITALS: Ht 182.9 cm; Wt 85.2 kg
[~2024-09-11 17:43] MED LIST changes: -AMIO200T50 PO; -ASCO500C49 PO; +BACDST PO; -CHOL20007 PO; -CLOP75TA28 PO; -Doxycycline Monohydrate PO; -FURO40TA4 PO; -INSU50IN SC; -INSUINJ49 BC; -INSUINJ49 SC; -LIRA18IN2 SC; -MAGN241.4 GT; -NIFE1TAB31 PO; +NYSTOIN4 TOP; -ROSU10TA16 OR; -VALS40TA2 PO; -ZINC100T2 PO
--- NOTE | 2024-09-11 18:01 | ED.PDOC ---
SOB-HPI HPI Comments 79 y/o M, BIBA, with PMHx of CHF, CAD, CANCER, COPD, DM, HLD, and HTN presents to the ED for CC of shortness of breath. EMS reports, patient is coming from home where he complains of shortness of breath with associated symptoms of cough and congestion x3-4days. Patient relays, that he has experienced similar symptoms in the past in 2021 for which he had to be admitted. Patient comments, on feeling as if he is retaining water; states compliance with Lasix bid. Patient denies chills, fever, body-aches, or headache. No other associated symptoms, modifiers, recent injuries or sick contacts present at this time. Chief Complaint: Shortness of Breath Time Seen by MD: 17:57 Primary Care Provider: Tim Stapleton notes: Nurses Notes, Medications, Allergies Information Source: Patient Mode of Arrival: EMS Severity: Moderate Timing: Days Duration: Since onset Context: At Rest PE Risk Factors: None History of: COPD, CHF Prehospital treatment: None Modifying Factors: Nothing Associated Signs and Symptoms: Cough, Nasal Congestion If cough with SOB: Non-Productive Past Medical History PAST MEDICAL HISTORY: AFIB, CAD, Cancer, CHF, COPD, DM, High Lipids, HTN, Thyroid, UTI'S Surgical History: AKA, Pacemaker, Tonsillectomy Family History Family History: Family hx of heart margaret Family History (Other): [facility] Social History Smoker: Non-Smoker, Quit Greater Than 1 Year Alcohol: Denies ETOH Use Drugs: Denies Drug Use Lives In: Home Constitutional: denies: chills, diaphoresis, fatigue, fever, malaise, sweats, weakness, others EENTM: reports: nose congestion; denies: blurred vision, double vision, ear bleeding, ear discharge, ear drainage, ear pain, ear ringing, eye pain, eye redness, hearing loss, mouth pain, mouth swelling, nasal discharge, nose bleeding, nose pain, photophobia, tearing, throat pain, throat swelling, voice changes, others Respiratory: reports: cough, shortness of breath; denies: hemoptysis, orthopnea, SOB at rest, SOB with excertion, stridor, wheezing, others Cardiovascular: denies: chest pain, dizzy spells, diaphoresis, Dyspnea on exer tion, edema, irregular heart beat, left arm pain, lightheadedness, palpitations, PND, syncope, others Gastrointestinal: denies: abdomen distended, abdominal pain, blood streaked bowels, constipated, diarrhea, dysphagia, difficulty swallowing, hematemesis, melena, nausea, poor appetite, poor fluid intake, rectal bleeding, rectal pain, vomiting, others Genitourinary: denies: burning, dysuria, flank pain, frequency, hematuria, incontinence, penile discharge, penile sore, pain, testicle pain, testicle swelling, urgency, others Neurological: denies: dizziness, fainting, headache, left sided numbness, left sided weakness, numbness, paresthesia, pre-existing deficit, right sided numbness, right sided weakness, seizure, speech problems, tingling, tremors, weakness, others Musculoskeletal: denies: back pain, gout, joint pain, joint swelling, muscle pain, muscle stiffness, neck pain, others Integumetry: denies: bruises, change in color, change in hair/nails, dryness, laceration, lesions, lumps, rash, wounds, others Allergic/Immunocompromised: denies: Difficulty Healing, Frequent Infections, Hives, Itching, others Hematologic/Lymphatic: denies: anemia, blood clots, easy bleeding, easy bruising, swollen glands, others Endocrine: denies: excessive hunger, excessive sweating, excessive thirst, excessive urination, flushing, intolerance to cold, intolerance to heat, unexplained weight gain, unexplained weight loss, others Psychiatric: denies: anxiety, bipolar disorder, depression, hopeless, panic disorder, schizophrenia, sleepless, suicidal, others All Other Systems: Reviewed and Negative Physical Exam General Appearance: Moderate Distress (Patient is in [id number] distress due to chief complaints. Patient appears to be in poor overall health.), Normal HEENT: Normal ENT Inspection, Pharynx Normal, TMs Normal Neck: Full Range of Motion, Non-Tender, Normal, Normal Inspection Respiratory: Chest Non-Tender, No Accessory Muscle Use, No Respiratory Distress, Other ( Patient has patchy rhonchi appreciated globally. No accessory muscle use.) Cardiovascular: No Edema, No JVD, No Murmur, No Gallop, Normal Peripheral Pulses, Regular Rate/Rhythm Breast Exam: Deferred Gastrointestinal: Non Tender, No Pulsatile Mass, Normal Bowel Sounds, Soft, Other ( Patient has a functioning colostomy bag noted to the right-sided abdomen.) Genitalia: Deferred Pelvic: Deferred Rectal: Deferred Extremities: Other ( Patient displays a right-sided [id number] amputation as well as an atrophic left leg.), NOT DONE Neurologic: Alert, Normal Affect, Normal Mood Cerebellar Function: NOT DONE Reflexes: NOT DONE Skin: Dry, Normal Color, Warm Lymphatic: No Adenopathy Was a procedure done? Was a procedure done?: No Differential Dx Differential Diagnosis: CHF, COPD, Pneumonia, Respiratory Distress, Sinusitis, Pharyngitis, URI X-Ray, Labs, Meds, VS Vital Signs Date Time Temp Pulse Resp B/P (MAP) Pulse Ox O2 Delivery O2 Flow Rate FiO2 09/11/24 23:00 98.2 85 22 124/55 (78) 94 98.2 09/11/24 22:56 92 25 129/60 09/11/24 22:20 89 26 137/67 09/11/24 21:15 85 23 121/42 (68) 94 09/11/24 19:15 83 22 99 Nasal Cannula* 4 36 09/11/24 19:15 98.7 83 22 127/61 (83) 99 98.7 09/11/24 19:15 22 99 Nasal Cannula* 4 36 09/11/24 19:00 89 27 118/52 (74) 84 09/11/24 18:46 83 28 116/67 (83) 96 09/11/24 18:41 96.2 89 26 101/38 (59) 85 96.2 09/11/24 18:40 87 24 94 Simple Mask* 8 60 09/11/24 17:56 24 100 Nasal Cannula* 3 32 09/11/24 17:52 98.3 67 24 134/57 (82) 100 98.3 09/11/24 17:47 86 Lab Test 09/11/24 23:43 09/11/24 23:15 09/11/24 19:06 09/11/24 18:21 Range/Units Influenza Type A Antigen Negative Negative Influenza Type B Antigen Negative Negative SARS-CoV-2 Antigen (Rapid) Negative NEGATIVE Urine Color Light-yellow Yellow Urine Clarity Clear Clear Urine pH 5.0 5.0-9.0 Urine Specific [place] 1.011 1.001-1.035 Urine Protein Negative Negative Urine Ketones Negative Negative Urine Blood Negative Negative /uL Urine Nitrite Negative Negative Urine Bilirubin Negative Negative Urine Urobilinogen Normal Negative mg/dL Urine Leukocyte Esterase 3+ Negative /uL Urine RBC 1 0 - 3 /hpf Urine Microscopic WBC 29 H 0-3 /HPF Urine Squamous Epithelial Cells None seen <5 /hpf Urine Bacteria Many H None Seen /hpf Urine Glucose Normal Normal mg/dL Troponin I High Sensitivity 21 23 </=54 ng/L White Blood Count 9.9 4.4-10.8 10^3/uL Red Blood Count 5.07 4.5-5.90 10^6/uL Hemoglobin 12.5 L 13.5-17.5 g/dL Hematocrit 39.8 L 41.0-53.0 % Mean Corpuscular Volume 78.5 L 80.0-100.0 fL Mean Corpuscular Hemoglobin 24.6 L 28.0-32.0 pg Mean Corpuscular Hemoglobin Concent 31.3 L 32.0-36.0 g/dL Red Cell Distribution Width 21.1 H 11.8-14.3 % Platelet Count 220 140-450 10^3/uL Mean Platelet Volume 7.2 6.9-10.8 fL Neutrophils (%) (Auto) 83.2 H 37.0-80.0 % Lymphocytes (%) (Auto) 5.3 L 10.0-50.0 % Monocytes (%) (Auto) 7.8 0.0-12.0 % Eosinophils (%) (Auto) 3.2 0.0-7.0 % Basophils (%) (Auto) 0.5 0.0-2.0 % Neutrophils # (Auto) 8.3 1.6-8.6 10 ^3/uL Lymphocytes # (Auto) 0.5 0.4-5.4 10 ^3/uL Monocytes # (Auto) 0.8 0-1.3 10 ^3/uL Eosinophils # (Auto) 0.3 0-0.8 10 ^3/uL Basophils # (Auto) 0 0-0.2 10 ^3/uL Nucleated Red Blood Cells 0.0 % Sodium Level 136 136-145 mmol/L Potassium Level 4.1 3.5-5.1 mmol/L Chloride Level 99 98-107 mmol/L Carbon Dioxide Level 29 20-31 mmol/L Anion Gap 8 5-15 Blood Urea Nitrogen 36 H 9-23 mg/dL Creatinine 2.03 H 0.700-1.30 mg/dL Glomerular Filtration Rate Calc 33 >90 mL/min BUN/Creatinine Ratio 17.7 10.0-20.0 Serum Glucose 151 H 74-106 mg/dL Lactic Acid Level 1.5 0.4-2.0 mmol/L Calcium Level 9.7 8.7-10.4 mg/dL Total Bilirubin 1.3 H 0.2-1.0 mg/dL Aspartate Amino Transferase (AST) 9 L 13-40 U/L Alanine Aminotransferase (ALT) 11 7-40 U/L Alkaline Phosphatase 104 46-116 U/L B-Type Natriuretic Peptide 311.02 0-100 pg/mL Total Protein 6.8 5.7-8.2 g/dL Albumin 4.1 3.2-4.8 g/dL Lipase 23 12-53 U/L Current Medications Medications (Trade) Dose Ordered Sig/Paramjit Route Start Time Stop Time Status Last Admin Dexamethasone Sodium Phosphate (Decadron Injection) 10 mg ONCE ONCE IV 09/11/24 18:00 09/11/24 18:01 DC 09/11/24 18:40 Morphine Sulfate 2 mg ONCE ONCE IV 09/11/24 22:15 09/11/24 22:16 DC 09/11/24 22:20 X-Ray, Labs, Meds, VS Comment All studies performed the ED were evaluated by me personally. At time of physical evaluation, once patient that made in the bed, patient's scrotum was edematous and patient appears to be moving towards the phimosis state. Laboratories studies and imaging reviewed by me. EKG revealed an atrial fibrillation with a rate of 86. Right bundle-branch block was noted with a QT interval 417. Laboratories revealed what appears to be acute on chronic renal concerns, acute CHF exacerbation, significant UTI and elevated bilirubin. Imaging studies of the chest revealed Significant pulmonary edema and CT of the scrotum was remarkable for a significant right-sided hydrocele. Patient will be admitted for multiple concerns including what appears to be acute respiratory distress as the patient is requiring 6 L of O2. Time of 1ST Reevaluation: 00:52 Reevaluation 1ST: Improved Consultation: PCP, Cardiology, Psychiatry, Other ( Nephrology) Patient Education/Counseling: Diagnosis, Treatment Family Education/Counseling: Diagnosis, Treatment, No Family Present Departure 1 Departure Time of Disposition: 00:52 Impression: Primary Impression: Acute respiratory distress Additional Impressions: Nbdss-ry-flnzalh kidney injury Acute exacerbation of CHF (congestive heart failure) Pulmonary edema Hydrocele of testis Disposition: ADMITTED INPATIENT Condition: Fair Discharged With: Self Critical Care Note Critical Care Time?: No Stability Stability form required: No Heart Score Heart Score: Heart Score Response (Comments) Value History Slightly Suspicious 0 EKG Repolarization Disturb 1 Age >65 2 Risk Factors 1 or 2 risk factors 1 Troponin N/A 0 Total 4 I personally scribed for NICO JIM PAC ([email or web address]) on 09/11/24 at 18:01. Electronically submitted by Heydi Odom ([email or web address]). I personally scribed for NICO JIM PAC ([email or web address]) on 09/11/24 at 18:05. Electronically submitted by Heydi Odom ([email or web address]). NICO JIM PAC Sep 11, 2024 18:01
[2024-09-11 18:36] LABS: Eosinophils # (auto) 0.3 10 ^3/uL (0-0.8); Hemoglobin 12.5 g/dL (13.5-17.5); Lymphocytes # (auto) 0.5 10 ^3/uL (0.4-5.4); Mean Corpuscular Hemoglobin 24.6 pg (28.0-32.0); Neutrophils # (auto) 8.3 10 ^3/uL (1.6-8.6); White Blood Cell 9.9 10^3/uL (4.4-10.8)
[2024-09-11 18:38] LABS: Basophils # (auto) 0 10 ^3/uL (0-0.2); Basophils % (auto) 0.5 % (0.0-2.0); Eosinophils % (auto) 3.2 % (0.0-7.0); Hematocrit 39.8 % (41.0-53.0); Lymphocytes % (auto) 5.3 % (10.0-50.0); Mean Corpuscular Hgb Conc. 31.3 g/dL (32.0-36.0); Mean Corpuscular Volume 78.5 fL (80.0-100.0); Monocytes # (auto) 0.8 10 ^3/uL (0-1.3); Monocytes % (auto) 7.8 % (0.0-12.0); Neutrophils % (auto) 83.2 % (37.0-80.0); Platelet Count (auto) 220 10^3/uL (140-450); Red Blood Cells 5.07 10^6/uL (4.5-5.90)
[2024-09-11 18:40] VITALS: PULSE 87; RESP 24; O2SAT 94
[2024-09-11] MEDS: DexAMETHasone SOD PHOS 10MG/1ML VIAL INJ IV ONE (18:40)
[2024-09-11 18:41] LABS: Red Cell Distribution Width 21.1 % (11.8-14.3)
[2024-09-11 18:49] LABS: Alanine Aminotransferase 11 U/L (7-40); Albumin 4.1 g/dL (3.2-4.8); Alkaline Phosphatase 104 U/L (46-116); Anion Gap 8 (5-15); BUN/Creatinine Ratio 17.7 (10.0-20.0); Calcium 9.7 mg/dL (8.7-10.4); Carbon Dioxide 29 mmol/L (20-31); Chloride 99 mmol/L (98-107); Lipase 23 U/L (12-53); Potassium 4.1 mmol/L (3.5-5.1); Sodium 136 mmol/L (136-145); Total Protein 6.8 g/dL (5.7-8.2)
[2024-09-11 18:51] LABS: Aspartate Aminotransferase 9 U/L (13-40); Bilirubin, Total 1.3 mg/dL (0.2-1.0); Blood Urea Nitrogen 36 mg/dL (9-23); Glucose 151 mg/dL (74-106)
--- NOTE | 2024-09-11 19:09 | ECG ---
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
[2024-09-11 19:15] VITALS: PULSE 83; RESP 22; O2SAT 99
--- NOTE | 2024-09-11 20:36 | DVH ---
CHEST RADIOGRAPH Indication: shortness of breath Technique: Single frontal view of the chest was obtained COMPARISON: XY CHEST XRAY 1 VIEW on DOS: 01/29/24 FINDINGS / IMPRESSION: Lines and Tubes: Dual-lead pacemaker again noted overlying left chest wall. Lungs: Pulmonary edema. Mild bibasilar subsegmental atelectasis/consolidation. Pleura: No effusion. No pneumothorax. Cardiomediastinal contours: Unremarkable
[2024-09-11] MEDS: MORPHINE SULFATE INJ 2 MG/ml SYRG IV ONE (22:20)
--- NOTE | 2024-09-11 22:32 | DVH ---
ULTRASOUND OF SCROTUM AND CONTENTS. INDICATION: Testicular swelling COMPARISON: TESUS on DOS: 02/07/21 TECHNIQUE: Multiple real-time grayscale sonographic and color and duplex Doppler images of the scrotu m and its contents were obtained. FINDINGS: RIGHT TESTICLE: Measures 3.5 X 2.4 X 3.4 cm. LEFT TESTICLE: Measures 3.7 X 2.9 X 3.4 cm. Large left hydrocele containing a 1 cm heterogeneous nodule which is affixed to the anterior wall.. Both testicles demonstrate homogeneous echotexture without evidence of focal lesions. The right epididymal head measures 14.6 MM. The left epididymal head NOT VISUALIZED Subsequent color and duplex Doppler interrogation of the testes demonstrated symmetric normal vascula r flow to both testicles. No focal areas of hyperemia were seen. IMPRESSION: 1. Right testicle measures 3.5 cm left testicle measures 3.7 cm. 2. No testicular torsion. The right epididymis measures 14.6 mm. 3. Left epididymis is not visualized. 4. Large hydrocele left scrotum with a heterogeneous nodule measuring a cm in size fixed to the ante rior wall of the Hydrocele. Electronically drafted by Troy Etienne at 09/12/2024 12:21 AM FLOW MANAGER
[2024-09-11 23:44] LABS: Urine Bacteria MANY /hpf (None Seen); Urine Blood Negative /uL (Negative); Urine Clarity Clear (Clear); Urine Color Light-Yellow (Yellow); Urine Protein, UAD Negative (Negative); Urine Specific Gravity 1.011 (1.001-1.035); Urine Squamous Epithelial Cell None Seen /hpf (<5); Urine Urobilinogen Normal (Negative); Urine WBC 29 /HPF (0-3)
[2024-09-12] VITALS (16 sets, daily range): BP systolic 105–133; BP diastolic 41–65; PULSE 68–94; RESP 16–24; TEMP 97.6–98.3; O2SAT 91–98
[2024-09-12 00:38] LABS: Rapid Influenza A Negative (Negative); Rapid Influenza B Negative (Negative)
[2024-09-12 00:39] LABS: COVID19 ANTIGEN SOFIA FIA NEGATIVE (NEGATIVE)
[2024-09-12] MEDS: cefTRIAXone 1GM/50ML D5W 50 ML IV ONE (00:51)
[2024-09-12] MEDS: FUROSEMIDE 100 MG/10ML VIAL IV ONE (00:53)
--- NOTE | 2024-09-12 02:58 | DVHHPRES ---
History of Present Illness Resident Creating Document: ALAN PITTMAN RESIDENT History of Present Illness Mr. 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 Ortiz, ANA MARIA on CPAP, left breast cancer status post surgery on tamoxifen 1999 and, left nephrectomy due to left renal mass 2013, colostomy 2018, internal hemorrhoids, diverticulosis who presents to the ER with a chief complaint of shortness of breaths and generalized edema for the past 2 weeks. Patient reports that he has chronic cough which recently worsened 2 weeks back and became productive with yellowish phlegm following which he got short of breath and orthopneic associated with generalized weakness, body aches and fatigue. Also reported nausea but no vomiting or chest pain. He says that he is compliant with his Lasix 20 mg b.i.d.. Patient increased his oxygen from 3.5-4 L and started t aking nebulized treatments which did improve him for the time being. He did not increases intake of inhalers which he takes b.i.d.. Patient had a left heart catheterization in [address] TEE which showed mild CAD Last colonoscopy 2022 Last echo December 2023 showed EF 45% He was last admitted at this facility in January 2024 for acute respiratory failure with sepsis secondary to infected sacral ulcer with Pseudomonas and MRSA and Proteus. Past medical surgical history: See above Social history: Patient is nonambulatory. 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 Quit smoking in 1999 does not drink, denies illicit drug use. Lives with and daughter Patient seen and examined at the bedside. Currently saturating 94 on 5 L NC supplementation. Lasix dose 60 mg IV push was given by the ER. Continue 40 mg TID. Smoke: Quit ALCOHOL: none Drugs: None Lives: with Family Review of Systems Constitutional: Yes: Weakness, Malaise Respiratory: Cough, Shortness of breath, SOB with excertion, Sputum Gastrointestinal: Nausea, Abdominal Pain Allergies: Coded Allergies: Cephalexin (Verified Allergy, Severe, 09/06/15) Cefaclor (Verified Allergy, Unknown, 09/06/15) Exam Vital Signs Vital Signs Date Time Temp Pulse Resp B/P (MAP) Pulse Ox O2 Delivery O2 Flow Rate FiO2 4/18/25 01:00 98.3 82 22 138/60 (86) 92 98.3 09/11/24 19:15 Nasal Cannula* 4 36 Exam Elderly male patient lying in bed, A&O x4, saturating 94 on 5 L NC General: Afebrile, palor, mucosae are moist Cardiovascular: Irregular S1 and S2. No murmurs, gallops or rubs. No JVD elevation. No pedal edema Respiratory: Bilateral crackles heard on auscultation. Left more than right. Abdomen: Soft, nontender, nondistended, normoactive bowel sounds, no rebound tenderness, no organomegaly, no masses. Colostomy bag seen draining brownish stool on the right side Genitourinary: Deferred MSK/skin: Right AKA. Left lower extremities cachectic with feeble pulses. Left lower extremities warm, normal sensation Neurological: No motor, no sensitive deficits, normal speech. Pupils are isocoric and reactive. Psych/Mental Status: A/Ox3 Labs/Xrays Labs Test 09/11/24 23:43 09/11/24 23:15 09/11/24 19:06 09/11/24 18:21 Range/Units Influenza Type A Antigen Negative Negative Influenza Type B Antigen Negative Negative SARS-CoV-2 Antigen (Rapid) Negative NEGATIVE Urine Color Light-yellow Yellow Urine Clarity Clear Clear Urine pH 5.0 5.0-9.0 Urine Specific [place] 1.011 1.001-1.035 Urine Protein Negative Negative Urine Ketones Negative Negative Urine Blood Negative Negative /uL Urine Nitrite Negative Negative Urine Bilirubin Negative Negative Urine Urobilinogen Normal Negative mg/dL Urine Leukocyte Esterase 3+ Negative /uL Urine RBC 1 0 - 3 /hpf Urine Microscopic WBC 29 H 0-3 /HPF Urine Squamous Epithelial Cells None seen <5 /hpf Urine Bacteria Many H None Seen /hpf Urine Glucose Normal Normal mg/dL Troponin I High Sensitivity 21 </=54 ng/L White Blood Count 9.9 4.4-10.8 10^3/uL Red Blood Count 5.07 4.5-5.90 10^6/uL Hemoglobin 12.5 L 13.5-17.5 g/dL Hematocrit 39.8 L 41.0-53.0 % Mean Corpuscular Volume 78.5 L 80.0-100.0 fL Mean Corpuscular Hemoglobin 24.6 L 28.0-32.0 pg Mean Corpuscular Hemoglobin Concent 31.3 L 32.0-36.0 g/dL Red Cell Distribution Width 21.1 H 11.8-14.3 % Platelet Count 220 140-450 10^3/uL Mean Platelet Volume 7.2 6.9-10.8 fL Neutrophils (%) (Auto) 83.2 H 37.0-80.0 % Lymphocytes (%) (Auto) 5.3 L 10.0-50.0 % Monocytes (%) (Auto) 7.8 0.0-12.0 % Eosinophils (%) (Auto) 3.2 0.0-7.0 % Basophils (%) (Auto) 0.5 0.0-2.0 % Neutrophils # (Auto) 8.3 1.6-8.6 10 ^3/uL Lymphocytes # (Auto) 0.5 0.4-5.4 10 ^3/uL Monocytes # (Auto) 0.8 0-1.3 10 ^3/uL Eosinophils # (Auto) 0.3 0-0.8 10 ^3/uL Basophils # (Auto) 0 0-0.2 10 ^3/uL Nucleated Red Blood Cells 0.0 % Sodium Level 136 136-145 mmol/L Potassium Level 4.1 3.5-5.1 mmol/L Chloride Level 99 98-107 mmol/L Carbon Dioxide Level 29 20-31 mmol/L Anion Gap 8 5-15 Blood Urea Nitrogen 36 H 9-23 mg/dL Creatinine 2.03 H 0.700-1.30 mg/dL Glomerular Filtration Rate Calc 33 >90 mL/min BUN/Creatinine Ratio 17.7 10.0-20.0 Serum Glucose 151 H 74-106 mg/dL Lactic Acid Level 1.5 0.4-2.0 mmol/L Calcium Level 9.7 8.7-10.4 mg/dL Total Bilirubin 1.3 H 0.2-1.0 mg/dL Aspartate Amino Transferase (AST) 9 L 13-40 U/L Alanine Aminotransferase (ALT) 11 7-40 U/L Alkaline Phosphatase 104 46-116 U/L B-Type Natriuretic Peptide 311.02 0-100 pg/mL Total Protein 6.8 5.7-8.2 g/dL Albumin 4.1 3.2-4.8 g/dL Lipase 23 12-53 U/L Assessment/Plan Assessment/Plan Acute on chronic hypoxic respiratory failure secondary to probable CHF exacerbation Acute on chronic Moderately reduced congestive heart failure exacerbation-NYHA class 4 Probable Bilateral basilarGram-negative pneumonia AFib, rate controlled on Eliquis COPD on 3 L home oxygen Mild coronary artery disease Sick sinus syndrome status post dual-chamber Biotronik pacemaker 2016 Obstructive apnea on CPAP Continue nasal cannula supplementation with 5 L oxygen per minute, wean O2 as tolerated One dose of Lasix 60 mg administered, continue Lasix 40 mg TID Received 1 dose of ceftriaxone, started IV cefepime 09/12 and p.o. doxycycline 09/12 daily for pneumonia and UTI BNP increased at 311, tropes WNL Chest x-ray shows bibasilar infiltrates and bilateral pulmonary vascular congestion Lovenox 1 mg per kg b.i.d. for AFib Continue nebulized treatments for COPD Follow up with the echocardiogram Acute cystitis Received 1 dose of ceftriaxone, started cefepime IV daily Urine bacterial culture pending Diabetes mellitus type 2-A1c 6.4 Mild ISS ? CASS on CKD FENA 0.4% prerenal Renal ultrasound pending Left-sided hydrocele Continue fluid diuresis Anemia likely iron-deficiency MCV 78 Iron panel pending Secondary hypercoagulable state History of left breast cancer status post surgery and tamoxifen therapy 2007 History of laparoscopic left radical nephrectomy 2013 History of colostomy 2019 Lower extremity Doppler ordered Lower extremity arterial ordered Stage I decubitus sacral ulcer Wound care consulted Tunnel hemorrhoids Diverticulosis Monitor Diet: Cardiac diet Plan discussed with patient in which all questions have been answered Goals of care discussed for more than 30 minutes, full code status Case discussed with Dr. Diaz Plan discussed with: Patient Date of Service: Sep 12, 2024 Billing Provider: ORTEGA DIAZ MD Common Visit Codes: 56893-EHMMYDT INP/OBS CARE (HIGH) Secondary Visit Codes: 80676-DAOZGTET CARE PLAN 30 MINUTES ALAN PITTMAN RESIDENT Sep 12, 2024 02:58 ORTEGA DIAZ MD Sep 12, 2024 10:12
[2024-09-12] MEDS ORDERED: NITROGLYCERIN 0.4 MG SL TAB SL PRN (03:00)
[2024-09-12] MEDS ORDERED: MORPHINE SULFATE INJ 2 MG/ml SYRG IV PRN (03:00)
[2024-09-12] MEDS ORDERED: IPRATROPIUM BROM 0.5 MG/2.5ML INH SOL NEB ONE (03:15)
[2024-09-12] MEDS ORDERED: DEXTROSE (50%) 50ML SYRG IV PRN (03:15)
[2024-09-12] MEDS ORDERED: HYDROcodone-ACET 5/325MG TAB PO PRN (03:30)
[2024-09-12] MEDS ORDERED: ACETAMINOPHEN 500 MG TAB or CAP PO PRN (03:30)
[2024-09-12 03:48] LABS: Creatinine, Urine 73.92 mg/dL (30.0-125.0); Urine Protein/Creatinine Ratio 0.31
[2024-09-12 03:52] LABS: Amphetamine Screen, Urine Neg (NEGATIVE); Barbiturate Scree,Urine Neg (NEGATIVE); Benzodiazephine Screen, Urine Neg (NEGATIVE); Cannabinoid Screen, Urine Neg (NEGATIVE); Cocaine Screen, Urine Neg (NEGATIVE); Opiate Scree,Urine Neg (NEGATIVE); Phencyclidine Screen, Urine Neg (NEGATIVE)
[2024-09-12 03:55] LABS: Hemoglobin 12.7 g/dL (13.5-17.5); White Blood Cell 7.9 10^3/uL (4.4-10.8)
[2024-09-12 04:01] LABS: Mean Corpuscular Hemoglobin 24.6 pg (28.0-32.0); Mean Corpuscular Hgb Conc. 31.7 g/dL (32.0-36.0); Mean Corpuscular Volume 77.8 fL (80.0-100.0); Platelet Count (auto) 222 10^3/uL (140-450); Red Blood Cells 5.14 10^6/uL (4.5-5.90)
[2024-09-12] MEDS: ONDANSETRON HCL 4 MG/2 ML VIAL IV PRN (04:05)
[2024-09-12 04:10] LABS: INR 1.17 (0.9-1.15); Partial Thromboplastin Time 31.3 SEC (24.5-34.5); Prothrombin Time 12.2 sec (9.3-11.8)
[2024-09-12 04:12] LABS: Band Neutrophils % (manual) 0; Basophils % (manual) 0 (0.0-2.0); Blast Cells 0; Eosinophils % (manual) 0 (0-7); Metamyelocytes % 0; Monocytes % (manual) 0 (0-12); Myelocytes % 0; Promyelocytes % 0; Reactive Lymphocytes 0
[2024-09-12 04:18] LABS: Albumin 4.3 g/dL (3.2-4.8); Alkaline Phosphatase 105 U/L (46-116); Anion Gap 10 (5-15); BUN/Creatinine Ratio 18.9 (10.0-20.0); Carbon Dioxide 29 mmol/L (20-31); Magnesium 2.1 mg/dL (1.6-2.6); Potassium 4.7 mmol/L (3.5-5.1); Sodium 137 mmol/L (136-145)
[2024-09-12 04:20] LABS: Alanine Aminotransferase < 9 U/L (7-40); Aspartate Aminotransferase 9 U/L (13-40); Bilirubin, Total 1.3 mg/dL (0.2-1.0); Blood Urea Nitrogen 37 mg/dL (9-23); Chloride 98 mmol/L (98-107); Glucose 181 mg/dL (74-106)
[2024-09-12 05:00] LABS: Hypochromia Slight; Lymphocytes % (manual) 2 (10.0-50.0)
[2024-09-12 05:01] LABS: Anisocytosis Slight; Ovalocytes FEW; Platelet Estimate Adequate
[2024-09-12] MEDS ORDERED: IPRATROPIUM BROM 0.5 MG/2.5ML INH SOL NEB SCH (06:00)
[2024-09-12] MEDS: FUROSEMIDE 40 MG/4 ML VIAL IV SCH ×2 (06:19→21:11)
[2024-09-12] MEDS: LEVALBUTEROL HCL 1.25 MG/3 ML NEB NEB SCH (06:24)
[2024-09-12] MEDS: IPRATROPIUM BROM 0.5 MG/2.5ML INH SOL NEB SCH (06:25)
[2024-09-12] MEDS: ACCU-CHEK COMFORT CURVE STRIP VI SCH (06:58)
[2024-09-12] MEDS: InsuLIN REG 1unit/0.01ml Soln (100units/ml) SC SCH (06:59)
[2024-09-12] MEDS: PANTOPRAZOLE 40 MG/10 ML VIAL INJ IV ONE (07:06)
[2024-09-12] MEDS: SODIUM CHLORIDE 0.9% 500 ML IV ONE (08:00)
--- NOTE | 2024-09-12 08:14 | DVH ---
INDICATION: kodi TECHNIQUE: Multiple real-time sonographic images of the kidneys and bladder were obtained. COMPARISON: None FINDINGS: The right kidney measures 11.1 cm in length, which is normal in size. There is increased ec hogenicity. Cortical thinning noted. No hydronephrosis. No intrarenal calculi noted. Status post left nephrectomy. Urinary bladder is contracted. A Xavier catheter is present. IMPRESSION: 1. Right renal cortical thinning and increased echotexture suggestive of medical renal disease. No hy dronephrosis. 2. Status post left nephrectomy. 3. Xavier catheter is present in a contracted urinary bladder.
--- NOTE | 2024-09-12 09:17 | DVH ---
Bilateral lower extremity venous duplex Clinical History: dvt Comparison: BLDVT on DOS: 02/06/21 Technique: Duplex Doppler evaluation of the deep venous systems of both lower extremities from the common femora l veins to the popliteal veins including color Doppler and spectral/pulsed waveform analysis was perf ormed. Findings: RIGHT SIDE: The common femoral vein demonstrates appropriate compressibility and waveform variability. There is compressibility/patency of the great saphenous vein at the proximal thigh. The femoral vein demonstrates appropriate compressibility and waveform variability. The deep femoral vein demonstrates appropriate compressibility and waveform variability. LEFT SIDE: The common femoral vein demonstrates appropriate compressibility and waveform variability. There is compressibility/patency of the great saphenous vein at the proximal thigh. The femoral vein demonstrates appropriate compressibility and waveform variability. The deep femoral vein demonstrates appropriate compressibility and waveform variability. The popliteal vein demonstrates appropriate compressibility and waveform variability. There is normal compressibility at the tibioperoneal trunk. Impression: No right or left femoropopliteal venous thrombosis.
[2024-09-12] MEDS: ATORVASTATIN 20 MG TAB PO SCH (09:44)
[2024-09-12] MEDS: DOXYCYCLINE 100 MG TAB/CAP PO SCH (09:44)
[2024-09-12] MEDS: CARVEDILOL 3.125 MG TAB PO SCH (09:45)
[2024-09-12] MEDS ORDERED: levoFLOXacin 500MG 100 ML IV SCH (10:00)
[2024-09-12] MEDS ORDERED: CEFEPIME 1GM/ 50ML 50 ML IV SCH (10:00)
[2024-09-12] MEDS: ENOXAPARIN SOD 100 MG/1 ML SYRINGE SC SCH (10:00)
--- NOTE | 2024-09-12 10:38 | DVH ---
RIGHT Lower Extremity Arterial Duplex Date: 09/12/2024 08:23 AM Clinical History: feeble pulses Comparison: US LT LOW EXT ART DUPLEX on DOS: 01/24/24 Findings: Duplex Doppler evaluation including color Doppler and spectral/pulsed waveform analysis of the lower extremity arteries was performed. RIGHT: Multifocal tandem atherosclerotic plaque noted throughout the lower extremity arteries. Peak systolic velocities are as follows: MANAGER ONCOLOGY 54 cm/s Deep femoral 28 cm/s SFA proximal 14 cm/s SFA mid-portion 12 cm/s SFA distal 27 cm/s Popliteal 0 cm/s Posterior tibial 0 cm/s [at proximal, mid, and distal calf levels, respectively] Anterior tibial 0 cm/s [at proximal, mid, and distal calf levels, respectively] Peroneal 0 cm/s Dorsalis pedis 0 cm/s The waveforms are MONOPHASIC WAVEFORMS. LEFT: Multifocal tandem atherosclerotic plaque noted throughout the lower extremity arteries. Peak systolic velocities are as follows: MANAGER ONCOLOGY 0 cm/s Deep femoral 0 cm/s SFA proximal 0 cm/s SFA mid-portion 12 cm/s SFA distal 22 cm/s Popliteal 19 cm/s Posterior tibial 12 cm/s [at proximal, mid, and distal calf levels, respectively] Anterior tibial 0 cm/s [at proximal, mid, and distal calf levels, respectively] The waveforms are monophasic with diastolic flow. REFERENCE VALUES, [facility] ([facility]) vascular Imaging Lab Criteria: Peak systolic velocity ranges (in cm/sec) are as follows: <150 cm/s - <20 % stenosis 150-200 cm/s - 20-49% stenosis 200-300 cm/s - 50-75% stenosis >300 cm/s -> 75% stenosis IMPRESSION: SEVERE BILATERAL PERIPHERAL ARTERIAL DISEASE. 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 VASCULAR S URGERY CONSULTATION RECOMMENDED END IMPRESSION:
--- NOTE | 2024-09-12 19:28 | DVHPNRES ---
Progress Note Date Seen: Sep 12, 2024 Resident Creating Document: SHELTON KOENIG RESIDENT Medical Necessity Reason Pt with a Central, PICC or Fol: No The following are medically ne: Xavier Catheter Subjective Review of Systems Mr. Andrei Simmons is a 79-year-old male came reports medical history of COPD on 3.5 L oxygen, moderately reduced congestive heart failure, mild CAD, AFib on Eliquis, diabetes mellitus type 2 status post right AKA, sick sinus syndrome status post dual chamber Biotronik pacemaker [address] Ortiz, ANA MARIA on CPAP, left breast cancer status post surgery on tamoxifen 1999 and, left nephrectomy due to left renal mass 2013, colostomy 2018, internal hemorrhoids, diverticulosis who presents to the ER with a chief complaint of shortness of breaths and generalized edema for the past 2 weeks. Patient reports that he has chronic cough which recently worsened 2 weeks back and became productive with yellowish phlegm following which he got short of breath and orthopneic associated with generalized weakness, body aches and fatigue. Also reported nausea but no vomiting or chest pain. He says that he is compliant with his Lasix 20 mg b.i.d.. Patient increased his oxygen from 3.5-4 L and started taking nebulized treatments which did improve him for the time being. He did not increases intake of inhalers which he takes b.i.d.. Initial lab workup revealed neutrophilia 83.2%, MCV 78.4, RDW 21.1, serum creatinine 2.03, BUN 36, HGB A1c 6.4, iron 27, ferritin 19.8, bilirubin 1.3, BNP 311, UDS negative, COVID and flu negative, urinalysis leukocyte esterase 3+, WBC 29, bacteria many. CXR- Pulmonary edema. Mild bibasilar subsegmental atelectasis/consolidation. Ultrasound of the testicle-Large hydrocele left scrotum with a heterogeneous nodule measuring a cm in size fixed to the anterior wall of the Hydrocele. Arterial Doppler of the lower extremity revealed-Multifocal tandem atherosclerotic plaque noted throughout the bilateral lower extremity arteries. Bilateral lower extremity Doppler study negative for DVT. Renal ultrasound revealed-Right renal cortical thinning and increased echotexture suggestive of medical renal disease.Status post left nephrectomy. Patient had a left heart catheterization in [address] TEE which showed mild CAD Last colonoscopy 2022 Last echo December 2023 showed EF 45% He was last admitted at this facility in January 2024 for acute respiratory failure with sepsis secondary to infected sacral ulcer with Pseudomonas and MRSA and Proteus. Past medical surgical history: See above Social history: Patient is nonambulatory. 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 Quit smoking in 1999 does not drink, denies illicit drug use. Lives with and daughter Patient seen and examined at the bedside. Currently saturating 94 on 5 L NC supplementation. Lasix dose 60 mg IV push was given by the ER. Continue 40 mg TID. Smoke: Quit ALCOHOL: none Drugs: None Lives: with Family Patient was seen today for clinical evaluation. Labs and chart reviewed. Patient reported his shortness of breaths has improving. Patient's testicular swollen and red and edematous. Patient on IV antibiotic for pneumonia Along with nebulization. Pending echo 2D report. Objective vital signs Vital Sign Date Time Temp Pulse Resp B/P (MAP) Pulse Ox O2 Delivery O2 Flow Rate FiO2 09/12/24 18:45 80 20 98 09/12/24 18:37 Nasal Cannula 6.0 09/12/24 18:37 44 09/12/24 17:00 97.6 105/55 (72) 97.6 Total Intake and Output 09/11/24 09/11/24 09/12/24 15:00 23:00 07:00 Intake Total 50 ml Balance 50 ml medications Current Medications Medications Dose Ordered Sig/Paramjit Route Start Time Stop Time Status Last Admin Dose Admin Nitroglycerin 0.4 mg Q5MINP PRN SL 09/12/24 03:00 Morphine Sulfate 2 mg Q30M PRN IV 09/12/24 03:00 Furosemide 40 mg TID IV 09/12/24 06:00 09/12/24 06:19 40 MG Levalbuterol HCl 1.25 mg Q6HR NEB 09/12/24 06:00 09/12/24 18:37 1.25 MG Enoxaparin Sodium 100 mg Q12HR SC 09/12/24 10:00 09/12/24 10:00 100 MG Diagnostic Test (Pha) 1 strip ACHS 09/12/24 07:00 09/12/24 17:24 1 STRIP Insulin Human Regular ACHS SC 09/12/24 07:00 09/12/24 17:31 3 UNITS Dextrose 50 ml UD PRN IV 09/12/24 03:15 Atorvastatin Calcium 20 mg DAILY PO 09/12/24 10:00 09/12/24 09:44 20 MG Carvedilol 3.125 mg BID PO 09/12/24 10:00 09/12/24 09:45 3.125 MG Acetaminophen 500 mg Q4HPRN PRN PO 09/12/24 03:30 Acetaminophen/ Hydrocodone Bitart 1 tab Q6HPRN PRN PO 09/12/24 03:30 Morphine Sulfate 1 mg Q4HPRN PRN IV 09/12/24 03:30 Ipratropium [place] 0.5 mg Q6HR NEB 09/12/24 06:00 09/12/24 18:37 0.5 MG Ondansetron HCl 4 mg Q4HPRN PRN IV 09/12/24 04:00 09/12/24 09:46 4 MG Pantoprazole Sodium 40 mg DAILY IV 09/13/24 10:00 Doxycycline Monohydrate 100 mg Q12HR PO 09/12/24 10:00 09/12/24 09:44 100 MG Cefepime HCl 50 ml @ 12.5 mls/hr Q12HR IV 09/12/24 10:00 UNV Examination General examination- HEENT- PEERLA, no acute nasal discharge Cardiovascular- S1-S2 audible, rate and rhythm regular, no murmur Respiratory- + wheeze Gastrointestinal-nontender, bowel sound+. Nondistended Musculoskeletal-no acute joint swelling or tenderness or redness Lower extremity- right above-knee amputation Neurological- cranial nerves intact, no acute dysarthria or dysphagia Psychiatry- denies depression or SI or HI Skin- no acute rash or purpura laboratory and microbiology Laboratory Tests 09/12/24 03:31 Test 09/12/24 03:31 Range/Units Serum Glucose 181 H 74-106 mg/dL Problem List/Assessment/Plan Problem List/Assessment/Plan Assessment and plan-patient with acute hypoxic respiratory failure likely due to pneumonia. Plan is to start Solu-Medrol tomorrow if patient is wheezing. Acute on chronic hypoxic respiratory failure secondary pneumonia/ CHF exacerbation Acute on chronic Moderately reduced congestive heart failure exacerbation-NYHA class 4 Acute pneumonia- Gram-negative pneumonia AFib, rate controlled on Eliquis Mild coronary artery disease Sick sinus syndrome status post dual-chamber Biotronik pacemaker 2015 Obstructive apnea on CPAP continue Lasix 40 mg b.i.d. Continue ceftriaxone and doxycycline as prescribed BNP increased at 311, tropes WNL Chest x-ray shows bibasilar infiltrates and bilateral pulmonary vascular congestion Lovenox 1 mg per kg b.i.d. for AFib Continue nebulized treatments for COPD Pending echo 2D report -pending blood culture, respiratory culture, uterine culture Acute cystitis -continue ceftriaxone 1 g IV daily Diabetes mellitus type 2-A1c 6.4 Continue insulin sliding scale as prescribed CKD, no CASS -avoid dehydration and nephrotoxic drugs Left-sided hydrocele Continue fluid diuresis Anemia likely iron-deficiency MCV 78 Secondary hypercoagulable state History of left breast cancer status post surgery and tamoxifen therapy 2007 History of laparoscopic left radical nephrectomy 2013 History of colostomy 2018 Lower extremity Doppler negative for DVT Lower extremity arterial -peripheral arterial disease Stage I decubitus sacral ulcer Wound care consulted # peripheral arterial disease -continue current management Tunnel hemorrhoids Diverticulosis Monitor Diet: Cardiac diet Goals of care, Code status ; discussed with >15 minutes PUD prophylaxis: Pantoprazole DVT prophylaxis: Lovenox Plan discussed with Dr. Vallejo , nursing staff, Total time spent on patient evaluation, chart review, assessment and plan, discussion discussion >35 minutes Plan discussed with: Patient, Other (RN) My Orders My Orders Orders - SHELTON KOENIG Procedure Category Date Status Time Pantoprazole PHA 09/13/24 In Process (Protonix) 10:00 Date of Service: Sep 12, 2024 Billing Provider: YOLANDA ROBERTS MD Common Visit Codes: [id number] INP/OBS CARE(HIGH) SHELTON KOENIG Sep 12, 2024 19:28 YOLANDA ROBERTS MD Sep 17, 2024 01:22
[2024-09-13] VITALS (18 sets, daily range): BP systolic 97–115; BP diastolic 39–79; PULSE 67–89; RESP 12–24; TEMP 97.4–98.9; O2SAT 90–98
[2024-09-13] MEDS: cefTRIAXone 1GM/50ML D5W 50 ML IV SCH (01:38)
--- NOTE | 2024-09-13 01:50 | DVHSR ---
APPROVED REPORT EXAM: Two-dimensional and M-mode echocardiogram with Doppler and color Doppler. Blood Pressure: 125/47 mmHg INDICATION CHF RISK FACTORS Height: 71, Weight: 220 DIMENSIONS LVDd3.9 (3.8-5.7cm)LA (2D)5.2 (1.9-4.0cm)Aortic Root3.9 (2.0-3.7cm) LVDs3.3 (2.5-4.0cm)LA (MM) (1.9-4.0cm)Aortic Cusp Exc2.0 (1.5-2.0cm) EF (%) 35.0 (55-70%)Rt. Atrium (1.9-4.0cm)Asc. Aorta cm Mitral Valve MitralMitral Stenosis E/A ratio0.02D MVAcm2 Aortic Valve Aortic ValveAortic Stenosis LVOT Diameter2.3 (1.8-2.4cm)Doppler AVAcm2 Tricuspid Valve TR Velocity4.08m/s [id number] Other Information Technically limited study due to body habitus, patient position, and patient sensitve to touch. Conclusion 1. MODERATE DEGREE LVH AND MODERATE DEGREE LV DIASTOLIC DYSFUNCTION LV EF IS IN RANGE OF 40% AND IS REDUCED 2. REMARKABLY DILATED RV AND IS SIGNIFICANTLY HYPOKINETIC RV SP IS 98 MM OF HG AND IS VERY HIGH 3. NO EFFUSION 4. MODERATELY DLATED LA 5. GROSSLY NRMAL VALVES
[2024-09-13 06:28] LABS: Calcium 9.9 mg/dL (8.7-10.4); Chloride 100 mmol/L (98-107)
[2024-09-13 06:29] LABS: Anion Gap 12 (5-15); Carbon Dioxide 23 mmol/L (20-31)
[2024-09-13 06:31] LABS: Basophils # (auto) 0 10 ^3/uL (0-0.2); Basophils % (auto) 0.3 % (0.0-2.0); Eosinophils # (auto) 0 10 ^3/uL (0-0.8); Eosinophils % (auto) 0.2 % (0.0-7.0); Hematocrit 45.4 % (41.0-53.0); Hemoglobin 13.3 g/dL (13.5-17.5); Lymphocytes # (auto) 0.4 10 ^3/uL (0.4-5.4); Lymphocytes % (auto) 3.1 % (10.0-50.0); Mean Corpuscular Hemoglobin 24.4 pg (28.0-32.0); Mean Corpuscular Hgb Conc. 29.3 g/dL (32.0-36.0); Mean Corpuscular Volume 83.2 fL (80.0-100.0); Monocytes # (auto) 1.5 10 ^3/uL (0-1.3); Neutrophils # (auto) 11.9 10 ^3/uL (1.6-8.6); Neutrophils % (auto) 85.4 % (37.0-80.0); Nucleated Red Blood Cells % 0.1 %; Platelet Count (auto) 231 10^3/uL (140-450); Red Blood Cells 5.46 10^6/uL (4.5-5.90); Red Cell Distribution Width 21.6 % (11.8-14.3)
[2024-09-13 06:34] LABS: BUN/Creatinine Ratio 16.2 (10.0-20.0)
[2024-09-13 06:35] LABS: Magnesium 2.3 mg/dL (1.6-2.6)
[2024-09-13 06:49] LABS: Glucose 138 mg/dL (74-106); Potassium 5.2 mmol/L (3.5-5.1); Sodium 135 mmol/L (136-145)
[2024-09-13 06:50] LABS: Blood Urea Nitrogen 38 mg/dL (9-23)
[2024-09-13] MEDS: SODIUM ZIRCONIUM CYCL 10 GM PAK PO ONE (09:15)
[2024-09-13] MEDS: PANTOPRAZOLE 40 MG/10 ML VIAL INJ IV SCH (09:16)
--- NOTE | 2024-09-13 19:50 | DVHPN2 ---
Subjective Mr. 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 Ortiz, ANA MARIA on CPAP, left breast cancer status post surgery on tamoxifen 1999 and, left nephrectomy due to left renal mass 2013, colostomy 2018, internal hemorrhoids, diverticulosis who presents to the ER with a chief complaint of shortness of breaths and generalized edema for the past 2 weeks. Patient reports that he has chronic cough which recently worsened 2 weeks back and became productive with yellowish phlegm following which he got short of breath and orthopneic associated with generalized weakness, body aches and fatigue. Also reported nausea but no vomiting or chest pain. He says that he is compliant with his Lasix 20 mg b.i.d.. Patient increased his oxygen from 3.5-4 L and started taking nebulized treatments which did improve him for the time being. He did not increases intake of inhalers which he takes b.i.d.. Initial lab workup revealed neutrophilia 83.2%, MCV 78.4, RDW 21.1, serum creatinine 2.03, BUN 36, HGB A1c 6.4, iron 27, ferritin 19.8, bilirubin 1.3, BNP 311, UDS negative, COVID and flu negative, urinalysis leukocyte esterase 3+, WBC 29, bacteria many. CXR- Pulmonary edema. Mild bibasilar subsegmental atelectasis/consolidation. Ultrasound of the testicle-Large hydrocele left scrotum with a heterogeneous nodule measuring a cm in size fixed to the anterior wall of the Hydrocele. Arterial Doppler of the lower extremity revealed-Multifocal tandem atherosclerotic plaque noted throughout the bilateral lower extremity arteries. Bilateral lower extremity Doppler study negative for DVT. Renal ultrasound revealed-Right renal cortical thinning and increased echotexture suggestive of medical renal disease.Status post left nephrectomy. Patient had a left heart catheterization in [address] TEE which showed mild CAD Last colonoscopy 2022 Last echo December 2023 showed EF 45% He was last admitted at this facility in January 2024 for acute respiratory failure with sepsis secondary to infected sacral ulcer with Pseudomonas and MRSA and Proteus. Past medical surgical history: See above Social history: Patient is nonambulatory. 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 Quit smoking in 1999 does not drink, denies illicit drug use. Lives with and daughter Patient seen and examined at the bedside. Currently saturating 94 on 5 L NC supplementation. Lasix dose 60 mg IV push was given by the ER. Continue 40 mg TID. Smoke: Quit ALCOHOL: none Drugs: None Lives: with Family Patient was seen today for clinical evaluation. Labs and chart reviewed. Patient reported his shortness of breaths has improving. Reviewed: H&P Changes from previous H/P or p: No Changes General: Per HPI Respiratory: Cough, Shortness of breath, SOB with excertion, Sputum Gastrointestinal: Nausea, Abdominal Pain Objective Vitals Vital Signs Date Time Temp Pulse Resp B/P (MAP) Pulse Ox O2 Delivery O2 Flow Rate FiO2 09/13/24 18:49 74 18 98 09/13/24 18:44 Nasal Cannula* 4 36 09/13/24 17:43 115/60 09/13/24 16:30 97.4 97.4 Intake/Output Intake and Output 09/13/24 07:00 Intake Total 690 ml Output Total 1250 ml Balance -560 ml Intake Oral 640 ml IV Total 50 ml Output Urine Total 1150 ml Stool Total 100 ml # Bowel Movements 1 Exam HEENT- PEERLA, no acute nasal discharge Cardiovascular- S1-S2 audible, rate and rhythm regular, no murmur Respiratory- + wheeze Gastrointestinal-nontender, bowel sound+. Nondistended Musculoskeletal-no acute joint swelling or tenderness or redness Lower extremity- right above-knee amputation Neurological- cranial nerves intact, no acute dysarthria or dysphagia Psychiatry- denies depression or SI or HI Skin- no acute rash or purpura Medications Current Medications Medications Dose Ordered Sig/Paramjit Route Start Time Stop Time Status Last Admin Dose Admin Nitroglycerin 0.4 mg Q5MINP PRN SL 09/12/24 03:00 Morphine Sulfate 2 mg Q30M PRN IV 09/12/24 03:00 Levalbuterol HCl 1.25 mg Q6HR NEB 09/12/24 06:00 09/13/24 18:46 1.25 MG Enoxaparin Sodium 100 mg Q12HR SC 09/12/24 10:00 09/13/24 09:15 100 MG Diagnostic Test (Pha) 1 strip ACHS 09/12/24 07:00 09/13/24 17:25 1 STRIP Insulin Human Regular ACHS SC 09/12/24 07:00 09/13/24 06:17 2 UNITS Dextrose 50 ml UD PRN IV 09/12/24 03:15 Atorvastatin Calcium 20 mg DAILY PO 09/12/24 10:00 09/13/24 09:15 20 MG Carvedilol 3.125 mg BID PO 09/12/24 10:00 09/12/24 22:50 3.125 MG Acetaminophen 500 mg Q4HPRN PRN PO 09/12/24 03:30 Acetaminophen/ Hydrocodone Bitart 1 tab Q6HPRN PRN PO 09/12/24 03:30 Morphine Sulfate 1 mg Q4HPRN PRN IV 09/12/24 03:30 Ipratropium [place] 0.5 mg Q6HR NEB 09/12/24 06:00 09/13/24 18:46 0.5 MG Ondansetron HCl 4 mg Q4HPRN PRN IV 09/12/24 04:00 09/12/24 09:46 4 MG Pantoprazole Sodium 40 mg DAILY IV 09/13/24 10:00 09/13/24 09:16 40 MG Doxycycline Monohydrate 100 mg Q12HR PO 09/12/24 10:00 09/13/24 09:15 100 MG Ceftriaxone Sodium 50 ml @ 100 mls/hr Q24H IV 09/13/24 01:00 09/13/24 01:38 100 MLS/HR Furosemide 40 mg BIDD IV 09/12/24 20:00 09/13/24 17:43 40 MG Laboratory Results Laboratory Tests 09/13/24 05:46 Chemistry Test 09/13/24 05:46 Calcium Level 9.9 mg/dL (8.7-10.4) Magnesium Level 2.3 mg/dL (1.6-2.6) Urinalysis Test 09/11/24 23:15 Urine Color Light-yellow (Yellow) Urine Clarity Clear (Clear) Urine pH 5.0 (5.0-9.0) Urine Specific [place] 1.011 (1.001-1.035) Urine Protein Negative (Negative) Urine Ketones Negative (Negative) Urine Blood Negative /uL (Negative) Urine Nitrite Negative (Negative) Urine Bilirubin Negative (Negative) Urine Urobilinogen Normal mg/dL (Negative) Urine Leukocyte Esterase 3+ /uL (Negative) Urine RBC 1 /hpf (0 - 3) Urine Microscopic WBC 29 /HPF (0-3) H Urine Squamous Epithelial Cells None seen /hpf (<5) Urine Bacteria Many /hpf (None Seen) H Urine Creatinine 73.92 mg/dL (30.0-125.0) Urine Protein/Creatinine Ratio 0.31 Urine Sodium 22 mmol/L (40-220) L Urine Glucose Normal mg/dL (Normal) Urine Total Protein 23.0 mg/dL (1-14) H Microbiology Microbiology Date/Time Source Procedure Growth Status 09/12/24 03:31 Blood Blood Culture - Preliminary NO GROWTH AFTER 24 HOURS OF INCUBATION. Resulted 09/11/24 23:15 Voided Urine Urine Culture - Preliminary Resulted Labs and/or images reviewed: Labs reviewed by me, Image(s) reviewed by me Assessment/Plan Assessment/Plan 09/13-patient admitted for pneumonia, possible COPD. Echo done yesterday showing severe PH, on exam he has rales up to mid lungs. We will decrease Solu-Medrol to p.o. prednisone and started IV Lasix. We will continue pneumonia treatment with ceftriaxone azithromycin. Acute on chronic hypoxic respiratory failure secondary pneumonia/ CHF exacerbation Acute on chronic Moderately reduced congestive heart failure exacerbation-NYHA class 4 Acute pneumonia- Gram-negative pneumonia AFib, rate controlled on Eliquis Mild coronary artery disease Sick sinus syndrome status post dual-chamber Biotronik pacemaker 2016 Obstructive apnea on CPAP Severe PH Cor pulmonale Right heart failure Continue ceftriaxone and doxycycline as prescribed BNP increased at 311, tropes WNL Chest x-ray shows bibasilar infiltrates and bilateral pulmonary vascular congestion Lovenox 1 mg per kg b.i.d. for AFib Continue nebulized treatments for COPD Echo shows severe PH and right heart failure -pending blood culture, respiratory culture, uterine culture -decrease Solu-Medrol to p.o. prednisone and started IV Lasix. continue Lasix 40 mg b.i.d. Acute cystitis Leukocytosis Neutrophilia -continue ceftriaxone 1 g IV daily Diabetes mellitus type 2-A1c 6.4 Continue insulin sliding scale as prescribed CKD, no CASS -avoid dehydration and nephrotoxic drugs Left-sided hydrocele Continue fluid diuresis Anemia likely iron-deficiency MCV 78 Secondary hypercoagulable state History of left breast cancer status post surgery and tamoxifen therapy 2007 History of laparoscopic left radical nephrectomy 2013 History of colostomy 2018 Lower extremity Doppler negative for DVT Lower extremity arterial -peripheral arterial disease Stage I decubitus sacral ulcer Wound care consulted # peripheral arterial disease -continue current management Tunnel hemorrhoids Diverticulosis Monitor Diet: Cardiac diet Goals of care, Code status ; discussed with >15 minutes PUD prophylaxis: Pantoprazole DVT prophylaxis: Lovenox Plan discussed with: Patient Date of Service: Sep 13, 2024 Billing Provider: YOLANDA ROBERTS MD Common Visit Codes: [id number] INP/OBS CARE(HIGH) YOLANDA ROBERTS MD Sep 13, 2024 19:50
[2024-09-14] VITALS (23 sets, daily range): BP systolic 86–118; BP diastolic 40–97; PULSE 16–97; RESP 12–21; TEMP 95.8–98.4; O2SAT 82–100
[2024-09-14] MEDS: predniSONE 20 MG TAB PO ONE (09:17)
[2024-09-14 09:31] LABS: Alanine Aminotransferase 14 U/L (7-40); Albumin 4.1 g/dL (3.2-4.8); Alkaline Phosphatase 93 U/L (46-116); Anion Gap 15 (5-15); Aspartate Aminotransferase 19 U/L (13-40); BUN/Creatinine Ratio 17.5 (10.0-20.0); Bilirubin, Total 1.1 mg/dL (0.2-1.0); Calcium 9.7 mg/dL (8.7-10.4); Carbon Dioxide 21 mmol/L (20-31); Chloride 98 mmol/L (98-107); Total Protein 6.9 g/dL (5.7-8.2)
[2024-09-14 09:34] LABS: Blood Urea Nitrogen 53 mg/dL (9-23); Glucose 119 mg/dL (74-106); Sodium 134 mmol/L (136-145)
[2024-09-14 09:36] LABS: Potassium 5.7 mmol/L (3.5-5.1)
[2024-09-14 11:00] LABS: Basophils # (auto) 0 10 ^3/uL (0-0.2); Eosinophils # (auto) 0 10 ^3/uL (0-0.8); Hemoglobin 12.9 g/dL (13.5-17.5); Monocytes # (auto) 0.8 10 ^3/uL (0-1.3)
[2024-09-14] MEDS: InsuLIN REG 1unit/0.01ml Soln (100units/ml) IV ONE (11:00)
[2024-09-14] MEDS: SODIUM ZIRCONIUM CYCL 10 GM PAK PO ONE (11:00)
[2024-09-14] MEDS: FUROSEMIDE 20 MG/2 ML VIAL IV ONE (11:00)
[2024-09-14 11:04] LABS: Basophils % (auto) 0.3 % (0.0-2.0); Eosinophils % (auto) 0.3 % (0.0-7.0); Hematocrit 42.6 % (41.0-53.0); Lymphocytes # (auto) 0.4 10 ^3/uL (0.4-5.4); Lymphocytes % (auto) 2.6 % (10.0-50.0); Mean Corpuscular Hemoglobin 24.4 pg (28.0-32.0); Mean Corpuscular Hgb Conc. 30.4 g/dL (32.0-36.0); Mean Corpuscular Volume 80.3 fL (80.0-100.0); Monocytes % (auto) 5.6 % (0.0-12.0); Neutrophils # (auto) 12.7 10 ^3/uL (1.6-8.6); Neutrophils % (auto) 91.2 % (37.0-80.0); Nucleated Red Blood Cells % 0.1 %; Platelet Count (auto) 221 10^3/uL (140-450); White Blood Cell 13.9 10^3/uL (4.4-10.8)
[2024-09-14] MEDS: ALBUTEROL SULF 2.5 MG/0.5ML(0.5%) NEB SOLN NEB ONE (11:20)
[2024-09-14] MEDS: DEXTROSE (50%) 50ML SYRG IV ONE (11:32)
[2024-09-14] MEDS: CALCIUM GLUC 1,000mg/50ml-NS 50 ML IV ONE (11:51)
--- NOTE | 2024-09-14 12:49 | ECG ---
[facility] Test Date: 2024-09-14 Test Time: 12:48:47 Pat Name: FERMIN GONZALES Department: Room: [address] [place] [address] Gender: M Event Mgr: mateusz troy 4 maricruz horan : 1945 Requested By: SHELTON KOENIG Order Number: [id number] Reading MD: Diogo Chapa Measurements Intervals [place] Rate: 81 P: 198 MS: 44 QRS: 128 QRSD: 165 T: -61 QT: 465 QTc: 540 Interpretive Statements Ventricular-paced complexes No further rhythm analysis attempted due to paced rhythm Right bundle branch block Electronically Signed On 09-17-2024 12:22:30 PDT by Diogo Chapa Please click the below link to view image of tracing.
[2024-09-14 13:02] LABS: Base Excess -9.4 mmol/L (-2.0-3.0)
--- NOTE | 2024-09-14 13:46 | DVH ---
CHEST RADIOGRAPH Indication: SOB Technique: Single frontal view of the chest was obtained Comparison: XY CHEST XRAY 1 VIEW on DOS: 09/11/24, XY CHEST XRAY 1 VIEW on DOS: 01/29/24, XY CHEST JEEVAN BLE on DOS: 01/26/24 FINDINGS: Lines and Tubes: None left-sided approach dual lead pacemaker terminates within the right atrium and right ventricle. Lungs: Diffuse interstitial prominence. Indistinctness of the left hemidiaphragm. No pneumothorax. Cardiomediastinal contours: Mild cardiomegaly with moderate atherosclerotic calcification and uncoili ng of the aorta. Bones: No acute osseous abnormality. Surgical clips are noted over the bilateral axilla. IMPRESSION: Cardiomegaly with pulmonary vascular congestion. Possible trace left-sided pleural effusion. Underl yoly infectious process can not be excluded
[2024-09-14 14:00] LABS: Lactic Acid w/Reflex 2.2 mmol/L (0.4-2.0)
[2024-09-14] MEDS: SODIUM CHLORIDE 0.9% 500 ML IV ONE ×2 (14:30→17:15)
[2024-09-14 14:37] LABS: Alkaline Phosphatase 89 U/L (46-116); Anion Gap 16 (5-15); Aspartate Aminotransferase 15 U/L (13-40); BUN/Creatinine Ratio 19.1 (10.0-20.0); Calcium 9.7 mg/dL (8.7-10.4); Carbon Dioxide 21 mmol/L (20-31); Total Protein 6.7 g/dL (5.7-8.2)
[2024-09-14 14:38] LABS: Alanine Aminotransferase < 9 U/L (7-40); Blood Urea Nitrogen 63 mg/dL (9-23); Chloride 96 mmol/L (98-107); Glucose 151 mg/dL (74-106); Potassium 5.5 mmol/L (3.5-5.1); Sodium 133 mmol/L (136-145)
[2024-09-14] MEDS: SILDENAFIL CITRATE 20 MG TAB PO SCH (15:00)
[2024-09-14 15:52] LABS: Base Excess -7.2 mmol/L (-2.0-3.0)
[2024-09-14] MEDS: SODIUM BICARBONATE 650 MG TAB PO ONE (17:14)
--- NOTE | 2024-09-14 17:18 | DVHPNRES ---
Progress Note Date Seen: Sep 14, 2024 Resident Creating Document: SHELTON KOENIG RESIDENT Medical Necessity Reason Pt with a Central, PICC or Fol: No The following are medically ne: Xavier Catheter Subjective Review of Systems Mr. Andrei Simmons is a 79-year-old male came reports medical history of COPD on 3.5 L oxygen, moderately reduced congestive heart failure, mild CAD, AFib on Eliquis, diabetes mellitus type 2 status post right AKA, sick sinus syndrome status post dual chamber Biotronik pacemaker [address] Ortiz, ANA MARIA on CPAP, left breast cancer status post surgery on tamoxifen 1999 and, left nephrectomy due to left renal mass 2013, colostomy 2018, internal hemorrhoids, diverticulosis who presents to the ER with a chief complaint of shortness of breaths and generalized edema for the past 2 weeks. Patient reports that he has chronic cough which recently worsened 2 weeks back and became productive with yellowish phlegm following which he got short of breath and orthopneic associated with generalized weakness, body aches and fatigue. Also reported nausea but no vomiting or chest pain. He says that he is compliant with his Lasix 20 mg b.i.d.. Patient increased his oxygen from 3.5-4 L and started taking nebulized treatments which did improve him for the time being. He did not increases intake of inhalers which he takes b.i.d.. Initial lab workup revealed neutrophilia 83.2%, MCV 78.4, RDW 21.1, serum creatinine 2.03, BUN 36, HGB A1c 6.4, iron 27, ferritin 19.8, bilirubin 1.3, BNP 311, UDS negative, COVID and flu negative, urinalysis leukocyte esterase 3+, WBC 29, bacteria many. CXR- Pulmonary edema. Mild bibasilar subsegmental atelectasis/consolidation. Ultrasound of the testicle-Large hydrocele left scrotum with a heterogeneous nodule measuring a cm in size fixed to the anterior wall of the Hydrocele. Arterial Doppler of the lower extremity revealed-Multifocal tandem atherosclerotic plaque noted throughout the bilateral lower extremity arteries. Bilateral lower extremity Doppler study negative for DVT. Renal ultrasound revealed-Right renal cortical thinning and increased echotexture suggestive of medical renal disease.Status post left nephrectomy. Patient had a left heart catheterization in [address] TEE which showed mild CAD Last colonoscopy 2022 Last echo December 2023 showed EF 45% He was last admitted at this facility in January 2024 for acute respiratory failure with sepsis secondary to infected sacral ulcer with Pseudomonas and MRSA and Proteus. Past medical surgical history: See above Social history: Patient is nonambulatory. 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 Quit smoking in 1999 does not drink, denies illicit drug use. Lives with and daughter Patient seen and examined at the bedside. Currently saturating 94 on 5 L NC supplementation. Lasix dose 60 mg IV push was given by the ER. Continue 40 mg TID. Smoke: Quit ALCOHOL: none Drugs: None Lives: with Family Patient was seen today for clinical evaluation. Labs and chart reviewed. ECHO 2D ON 09/13/2024 revealed LVEF 40%. Moderate degree of LVH, moderate degree of left ventricular diastolic dysfunction. Remarkably dilated right ventricle and significantly hypokinetic. Has been nuclear systolic pressure 98 mm of mercury. Moderately dilated left atrium. Patient was hypoxic in the morning, blood pressure also towards the lower end. Patient was given IV fluid. Discontinued Lasix. Patient has CASS on CKD. Patient also had hyperkalemia, treatment given according to hypokalemia protocol. Ordered cardiology consult for further evaluation and care. Patient's pH revealed metabolic acidosis and respiratory acidosis. ABG revealed pH 7.159, pCO2 56.5, PO2 75.2, [id number]. Patient was put on 4 BiPAP for 2 hours and also ordered for BiPAP at night. Objective vital signs Vital Sign Date Time Temp Pulse Resp B/P (MAP) Pulse Ox O2 Delivery O2 Flow Rate FiO2 09/14/24 16:51 76 94 Facial BiPAP Mask 40 09/14/24 12:30 97.6 14 98/43 (61) 97.6 09/14/24 11:20 4 Total Intake and Output 09/13/24 09/13/24 09/14/24 15:00 23:00 07:00 Intake Total 150 ml Output Total 100 ml 75 ml 400 ml Balance -100 ml -75 ml -250 ml medications Current Medications Medications Dose Ordered Sig/Paramjit Route Start Time Stop Time Status Last Admin Dose Admin Nitroglycerin 0.4 mg Q5MINP PRN SL 09/12/24 03:00 Hold Morphine Sulfate 2 mg Q30M PRN IV 09/12/24 03:00 Levalbuterol HCl 1.25 mg Q6HR NEB 09/12/24 06:00 09/14/24 07:02 1.25 MG Enoxaparin Sodium 100 mg Q12HR SC 09/12/24 10:00 09/14/24 09:06 100 MG Diagnostic Test (Pha) 1 strip ACHS 09/12/24 07:00 09/14/24 11:30 1 STRIP Insulin Human Regular ACHS SC 09/12/24 07:00 09/14/24 11:30 3 UNITS Dextrose 50 ml UD PRN IV 09/12/24 03:15 Atorvastatin Calcium 20 mg DAILY PO 09/12/24 10:00 09/14/24 09:07 20 MG Carvedilol 3.125 mg BID PO 09/12/24 10:00 09/14/24 09:07 3.125 MG Acetaminophen 500 mg Q4HPRN PRN PO 09/12/24 03:30 Acetaminophen/ Hydrocodone Bitart 1 tab Q6HPRN PRN PO 09/12/24 03:30 Morphine Sulfate 1 mg Q4HPRN PRN IV 09/12/24 03:30 Ipratropium [place]air 0.5 mg Q6HR NEB 09/12/24 06:00 09/14/24 11:20 0.5 MG Ondansetron HCl 4 mg Q4HPRN PRN IV 09/12/24 04:00 09/12/24 09:46 4 MG Pantoprazole Sodium 40 mg DAILY IV 09/13/24 10:00 09/14/24 09:06 40 MG Doxycycline Monohydrate 100 mg Q12HR PO 09/12/24 10:00 09/14/24 09:07 100 MG Ceftriaxone Sodium 50 ml @ 100 mls/hr Q24H IV 09/13/24 01:00 09/14/24 01:19 100 MLS/HR Prednisone 40 mg DAILY PO 09/15/24 10:00 Sildenafil Citrate 20 mg TID@08,14,20 PO 09/14/24 14:56 Examination General examination- awake, alert HEENT- PEERLA, no acute nasal discharge Cardiovascular- S1-S2 audible, rate and rhythm regular, no murmur Respiratory- no wheezing or crackles Gastrointestinal-nontender, bowel sound+. Nondistended Musculoskeletal-no acute joint swelling or tenderness or redness Lower extremity- right above-knee amputation Neurological- cranial nerves intact, no acute dysarthria or dysphagia Psychiatry- denies depression or SI or HI Skin- no acute rash or purpura laboratory and microbiology Laboratory Tests 09/14/24 10:45 Test 09/14/24 10:45 Range/Units Serum Glucose 151 H 74-106 mg/dL Microbiology Date/Time Source Procedure Growth Status 09/12/24 03:31 Blood Blood Culture - Preliminary NO GROWTH AFTER 48 HOURS OF INCUBATION. Resulted 09/11/24 23:15 Voided Urine Urine Culture - Final Escherichia coli Complete Problem List/Assessment/Plan Problem List/Assessment/Plan Assessment and plan- ECHO 2D ON 09/13/2024 revealed LVEF 40%. Moderate degree of LVH, moderate degree of left ventricular diastolic dysfunction. Remarkably dilated right ventricle and significantly hypokinetic. Has been nuclear systolic pressure 98 mm of mercury. Moderately dilated left atrium. Patient was hypoxic in the morning, blood pressure also towards the lower end. Patient was given IV fluid. Discontinued Lasix. Patient has CASS on CKD. Patient also had hyperkalemia, treatment given according to hypokalemia protocol. Ordered cardiology consult for further evaluation and care.Patient's pH revealed metabolic acidosis and respiratory acidosis. ABG revealed pH 7.159, pCO2 56.5, PO2 75.2, [id number]. Patient was put on 4 BiPAP for 2 hours and also ordered for BiPAP at night. Acute on chronic hypoxic respiratory failure secondary pneumonia/ CHF exacerbation Acute on chronic Moderately reduced congestive heart failure exacerbation-NYHA class 4 Acute pneumonia- Gram-negative pneumonia AFib, rate controlled on Eliquis Mild coronary artery disease Sick sinus syndrome status post dual-chamber Biotronik pacemaker 2016 Obstructive apnea on CPAP Pulmonary hypertension -ECHO 2D ON 09/13/2024 revealed LVEF 40%. Moderate degree of LVH, moderate degree of left ventricular diastolic dysfunction. Remarkably dilated right ventricle and significantly hypokinetic. Has been nuclear systolic pressure 98 mm of mercury. Moderately dilated left atrium. Continue ceftriaxone and doxycycline as prescribed BNP increased at 311, tropes WNL Chest x-ray shows bibasilar infiltrates and bilateral pulmonary vascular congestion Lovenox 1 mg per kg b.i.d. for AFib Continue nebulized treatments for COPD -urine culture-E coli, sensitive to ceftriaxone -ordered cardiology consult for further evaluation and care Diabetes mellitus type 2-A1c 6.4 Continue insulin sliding scale as prescribed CASS on CKD likely due to VMN -avoid dehydration and nephrotoxic drugs # hyperlipidemia -IV fluid given # acute complicated cystitis with the endocrine damage --urine culture-E coli, sensitive to ceftriaxone Left-sided hydrocele Continue fluid diuresis Anemia likely iron-deficiency MCV 78 Secondary hypercoagulable state History of left breast cancer status post surgery and tamoxifen therapy 2007 History of laparoscopic left radical nephrectomy 2013 History of colostomy 2018 Lower extremity Doppler negative for DVT Lower extremity arterial -peripheral arterial disease Stage I decubitus sacral ulcer Wound care consulted # peripheral arterial disease -continue current management Tunnel hemorrhoids Diverticulosis Monitor Diet: Cardiac diet Goals of care, Code status ; discussed with >15 minutes PUD prophylaxis: Pantoprazole DVT prophylaxis: Lovenox Plan discussed with Dr. Vallejo , nursing staff, Total time spent on patient evaluation, chart review, assessment and plan, discussion discussion >35 minutes Plan discussed with: Patient, Other (RN) My Orders My Orders Orders - SHELTON KOENIG Procedure Category Date Status Time Prednisone Tablet PHA 09/15/24 In Process 10:00 Abg W/ Co-Ox RT 09/14/24 Logged 12:15 Chest Portable XY 09/14/24 Resulted 12:18 * Cardiology Consult CONS 09/14/24 Transmitted 12:33 Urine Creatinine LAB 09/14/24 Logged 12:41 Urine Sodium LAB 09/14/24 Logged 12:41 Urine Protein LAB 09/14/24 Logged 12:41 Abg W/ Co-Ox RT 09/14/24 Logged 15:30 Basic Metabolic Panel LAB 09/14/24 Logged 15:11 Apply Z-Guard FRANCES 09/14/24 In Process 12:04 Cleanse Wound With FRANCES 09/14/24 In Process Wound Clean 12:04 BIPAP RT 09/14/24 Logged 16:45 Abg W/ Co-Ox RT 09/14/24 Logged 19:00 Complete Blood Count LAB 09/14/24 Logged 17:14 Comprehensive LAB 09/15/24 Verified Metabolic Panel 04:00 Magnesium LAB 09/15/24 Verified 04:00 Sodium Chloride 0.9% PHA 09/14/24 Logged 17:15 Communication Order ORDERS 09/14/24 Transmitted 17:15 Date of Service: Sep 14, 2024 Billing Provider: YOLANDA ROBERTS MD Common Visit Codes: [id number] INP/OBS CARE(HIGH) SHELTON KOENIG RESIDENT Sep 14, 2024 17:18 YOLANDA ROBERTS MD Sep 17, 2024 00:54
[2024-09-14 18:59] LABS: Anion Gap 15 (5-15); Carbon Dioxide 22 mmol/L (20-31)
[2024-09-14 19:00] LABS: Calcium 9.8 mg/dL (8.7-10.4)
[2024-09-14 19:01] LABS: Chloride 97 mmol/L (98-107); Potassium 5.3 mmol/L (3.5-5.1); Sodium 134 mmol/L (136-145)
[2024-09-14 19:05] LABS: BUN/Creatinine Ratio 18.7 (10.0-20.0); Blood Urea Nitrogen 61 mg/dL (9-23); Glucose 163 mg/dL (74-106)
--- NOTE | 2024-09-14 20:17 | RESUS ---
CODE ASSIST ASSESSSMENT Initial Information Code Assist Date: Sep 14, 2024 Code Assist Time: 12:12 Location of Arrest: [facility] Room [facility] 275-A Provider Name Dr Vallejo Time Notified: 12:12 Crash Cart Opened and Supplies: No Situation Staff concerned/worried, speci: SaO2 <90, SBP <90 or 10 from baseli Situation comment: Patient with SAO2 79 with O2 on 4L - increased to 6L - SAO2 92%, circumoral cyanosis also notedwith BP 86/42 Background Background: Patient has medical history of COPD on 3.5 L oxygen, moderately reduced congestive heart failure and presents to the ER with a chief complaint of shortness of breaths and generalized edema for the past 2 weeks. Assessment Temperature (Fahrenheit): 95.8 Blood Pressure Systolic: 86 Blood Pressure Diastolic: 42 Respiratory Rate: 18 O2 Sat by Pulse Oximetry: 96 Recommendations/Interventions Procedures: ABG, CXR Portable, CMP, CBC, EKG, Cardiac Monitoring, O2 Mask/NC Outcome Outcome: Problem Resolved Follow up Report Follow up Report Patient given 500 ml NS bolus as he was given total of 60 mg Lasix IV this am. Patient denied SOB after HOB increased and O2 increased to 6L O2 - SAO2 92%. CXR and labs taken - BP resolved to 98/43 with bolus - MD states no need for transfer to ICU/[facility] - continue cardiac ans SAO2 monitoring. Team Members Team Members Dr Vallejo, Dr Mai, Mason RN, Álvaro Nguyễn RN, Robin RN, Ty bedside RN Dixie Nguyễn Sep 14, 2024 20:17
[2024-09-14 20:18] LABS: Base Excess -7.8 mmol/L (-2.0-3.0)
[2024-09-14 20:53] LABS: Hematocrit 42.2 % (41.0-53.0); Hemoglobin 12.9 g/dL (13.5-17.5); Mean Corpuscular Hemoglobin 24.1 pg (28.0-32.0); Mean Corpuscular Hgb Conc. 30.6 g/dL (32.0-36.0); Mean Corpuscular Volume 78.8 fL (80.0-100.0); Platelet Count (auto) 186 10^3/uL (140-450); Red Blood Cells 5.36 10^6/uL (4.5-5.90)
[2024-09-14 20:56] LABS: Red Cell Distribution Width 21.1 % (11.8-14.3)
[2024-09-14 20:57] LABS: Band Neutrophils % (manual) 0; Basophils % (manual) 0 (0.0-2.0); Blast Cells 0; Eosinophils % (manual) 0 (0-7); Metamyelocytes % 0; Myelocytes % 0; Promyelocytes % 0; Reactive Lymphocytes 0
[2024-09-14 21:16] LABS: Anisocytosis Slight; Hypochromia Slight; Lymphocytes % (manual) 4 (10.0-50.0); Monocytes % (manual) 4 (0-12); Platelet Estimate Adequate
[2024-09-14 23:12] LABS: Protein, Urine 87.7 mg/dL (1-14)
[2024-09-14 23:15] LABS: Creatinine, Urine 125.37 mg/dL (30.0-125.0)
--- NOTE | 2024-09-14 23:35 | DVHINCON2 ---
Date of service: Sep 14, 2024 Referring Physician Sergei Reason for Consultation HFrEF, HTN History of Present Illness This is a 79 year old male with a PMH of CHF, CAD, CANCER, COPD, DM, HLD, and HTN presents to the ED for a complaint of shortness of breath. EMS reports, patient is coming from home where he complains of shortness of breath with associated symptoms of cough and congestion x 3-4days. Patient notes that he has experienced similar symptoms in the past in 2021 for which he had to be admitted. Patient reports feeling as if he is retaining water. Patient reports compliance with Lasix bid. WBC 13.9, LA 2.3. Chest x-ray shows pulmonary edema, mild bibasilar subsegmental atelectasis/consolidation. Patient was admitted to the hospital. I am asked to consult on this patient. Family History: FH: SD (myocardial infarction) G8 MOTHER, Onset:Unknown G8 BROTHER, Onset:Unknown G8 SISTER, Onset:Unknown FH: skin cancer G8 FATHER, Onset:Unknown FH: testicular cancer G8 FATHER, Onset:Unknown Family history: Cardiovascular disease G8 MOTHER, Onset:Unknown G8 BROTHER, Onset:Unknown G8 SISTER, Onset:Unknown Family history: Diabetes mellitus G8 MOTHER G8 BROTHER G8 SISTER Allergies: Coded Allergies: Cephalexin (Verified Allergy, Severe, 09/06/15) Cefaclor (Verified Allergy, Unknown, 09/06/15) Home Meds Active Scripts Nystatin-Triamcinolone (Triamcinolone/Nystatin) Oin, 1 APPLIC TOP BID for 10 Days, #30 GRAMS 1 Refill Apply to groin b.i.d. while symptomatic. Stop at day 10 Prov:RADHA SANCHEZ [employer]OC[employer]ATE 02/01/24 Sulfamethoxazole W/Trimethopri (Bactrim Ds Tablet) 1 Tab Tb, 1 TAB PO BID for 10 Days, #20 TAB Prov:RADHA SNACHEZ [employer] ASSOCIATE 02/01/24 Reported Medications Furosemide (Furosemide) 20 Mg Tab, 1 TAB PO DAILY for 90 Days, #90 01/24/24 Cilostazol (Cilostazol) 50 Mg Tab, 1 TAB PO BID for 90 Days, #180 01/24/24 Carvedilol (Carvedilol) 3.125 Mg Tab, 1 TAB PO BID for 90 Days, #180 01/24/24 Atorvastatin Calcium (Lipitor) 20 Mg Tab, 1 TAB PO DAILY for 90 Days, #90 01/24/24 Zxdgvdzwujc-Hlwmwmxnqfub-Msxbf (Trelegy Ellipta 100-62.5-25 Mcg/INH) 1 Aer Aer, 1 PUFF INH DAILY for 90 Days, #180 01/24/24 Insulin Glargine (Lantus Solostar) 100 Unit/Ml Inj, UNIT SC UD for 75 Days, #15 01/24/24 Apixaban Base (ELIQUIS) 2.5 Mg Tab, 1 TAB PO BID for 90 Days, #180 09/06/15 Current Medications Current Medications Medications (Trade) Dose Ordered Sig/Paramjit Route PRN Reason Start Time Stop Time Status Last Admin Prednisone 40 mg DAILY PO 09/15/24 10:00 Sildenafil Citrate (Revatio) 20 mg TID@08,14,20 PO 09/14/24 14:56 Review of Systems Constitutional: denies: chills, diaphoresis, fatigue, fever, malaise, sweats, weakness, others EENTM: reports: nose congestion; denies: blurred vision, double vision, ear bleeding, ear discharge, ear drainage, ear pain, ear ringing, eye pain, eye redness, hearing loss, mouth pain, mouth swelling, nasal discharge, nose bleeding, nose pain, photophobia, tearing, throat pain, throat swelling, voice changes, others Respiratory: reports: cough, shortness of breath; denies: hemoptysis, orthopnea, SOB at rest, SOB with excertion, stridor, wheezing, others Cardiovascular: denies: chest pain, dizzy spells, diaphoresis, Dyspnea on exertion, edema, irregular heart beat, left arm pain, lightheadedness, palpitations, PND, syncope, others Gastrointestinal: denies: abdomen distended, abdominal pain, blood streaked bowels, constipated, diarrhea, dysphagia, difficulty swallowing, hematemesis, melena, nausea, poor appetite, poor fluid intake, rectal bleeding, rectal pain, vomiting, others Genitourinary: denies: burning, dysuria, flank pain, frequency, hematuria, incontinence, penile discharge, penile sore, pain, testicle pain, testicle swelling, urgency, others Neurological: denies: dizziness, fainting, headache, left sided numbness, left sided weakness, numbness, paresthesia, pre-existing deficit, right sided numbn ess, right sided weakness, seizure, speech problems, tingling, tremors, weakness, others Musculoskeletal: denies: back pain, gout, joint pain, joint swelling, muscle pain, muscle stiffness, neck pain, others Integumetry: denies: bruises, change in color, change in hair/nails, dryness, laceration, lesions, lumps, rash, wounds, others Allergic/Immunocompromised: denies: Difficulty Healing, Frequent Infections, Hives, Itching, others Hematologic/Lymphatic: denies: anemia, blood clots, easy bleeding, easy bruising, swollen glands, others Endocrine: denies: excessive hunger, excessive sweating, excessive thirst, excessive urination, flushing, intolerance to cold, intolerance to heat, unexplained weight gain, unexplained weight loss, others Psychiatric: denies: anxiety, bipolar disorder, depression, hopeless, panic disorder, schizophrenia, sleepless, suicidal, others All Other Systems: Reviewed and Negative Vital Signs Vital Signs Date Time Temp Pulse Resp B/P (MAP) Pulse Ox O2 Delivery O2 Flow Rate FiO2 09/14/24 18:39 71 96 Facial BiPAP Mask 40 09/14/24 16:30 95.8 18 86/42 (57) 95.8 09/14/24 11:20 4 Physical Exam GENERAL: Alert and oriented x 3. No acute distress. EYES: PERRL, EOMI. Anicteric. HENT: Moist mucous membranes. LUNGS: breath sounds. CARDIOVASCULAR: Regular rate and rhythm. ABDOMEN: Soft, nontender and nondistended. Patient has a functioning colostomy bag noted to the right-sided abdomen. EXTREMITIES: No edema. Right AKA, atrophic left leg. NEUROLOGIC: No focal neurological deficits. SKIN: Warm, dry. Labs/Diagnostic Data Labs Test 09/14/24 18:24 09/14/24 17:18 09/14/24 15:40 09/14/24 14:42 Range/Units POC Glucose 162 H 70-106 mg/dl Blood Gas Specimen Type Arterial Blood Gas Sample Site Right radial Blood Gas Patient Temperature 37.0 Arterial Blood Date Drawn [id number] Arterial Blood pH 7.197 *L 7.350-7.450 Arterial Blood Partial Pressure CO2 56.4 H 35.0-48.0 mmHg Arterial Blood Partial Pressure O2 69.9 L 83.0-108.0 mmHg Arterial Blood HCO3 21.4 21.0-28.0 mmol/L Arterial Blood Oxygen Saturation 91.0 L 94.0-98.0 % Arterial Blood Base Excess -7.2 L -2.0-3.0 mmol/L Arterial Blood Oxyhemoglobin 89.3 L 94.0-98.0 % Arterial Blood Carboxyhemoglobin 1.5 0.5-1.5 % Arterial Blood Methemoglobin 0.4 0.0-1.5 % Yohannes Test Yes Blood Gas Total Hemoglobin 13.70 13.5-17.5 g/dL Blood Gas Set Respiration Rate 14.0 Blood Gas Modality Mask - bipap FiO2 % 40.0 Blood Gas EPAP 5 Blood Gas IPAP 12 Blood Gas Critical Value Read Back Yes Blood Gas Notified Whom librado Sepulveda Blood Gas Notified Time [id number] Blood Gas Notified By Income Tax Preparer yesica aguilar Lactic Acid Level 2.3 *H 0.4-2.0 mmol/L Test 09/14/24 10:45 09/13/24 06:07 09/13/24 05:46 09/12/24 03:31 Range/Units White Blood Count 13.9 H 4.4-10.8 10^3/uL Red Blood Count 5.30 4.5-5.90 10^6/uL Hemoglobin 12.9 L 13.5-17.5 g/dL Hematocrit 42.6 41.0-53.0 % Mean Corpuscular Volume 80.3 80.0-100.0 fL Mean Corpuscular Hemoglobin 24.4 L 28.0-32.0 pg Mean Corpuscular Hemoglobin Concent 30.4 L 32.0-36.0 g/dL Red Cell Distribution Width 21.0 H 11.8-14.3 % Platelet Count 221 140-450 10^3/uL Mean Platelet Volume 7.6 6.9-10.8 fL Neutrophils (%) (Auto) 91.2 H 37.0-80.0 % Lymphocytes (%) (Auto) 2.6 L 10.0-50.0 % Monocytes (%) (Auto) 5.6 0.0-12.0 % Eosinophils (%) (Auto) 0.3 0.0-7.0 % Basophils (%) (Auto) 0.3 0.0-2.0 % Neutrophils # (Auto) 12.7 H 1.6-8.6 10 ^3/uL Lymphocytes # (Auto) 0.4 0.4-5.4 10 ^3/uL Monocytes # (Auto) 0.8 0-1.3 10 ^3/uL Eosinophils # (Auto) 0 0-0.8 10 ^3/uL Basophils # (Auto) 0 0-0.2 10 ^3/uL Nucleated Red Blood Cells 0.1 % Total Bilirubin 1.0 0.2-1.0 mg/dL Aspartate Amino Transferase (AST) 15 13-40 U/L Alanine Aminotransferase (ALT) < 9 7-40 U/L Alkaline Phosphatase 89 46-116 U/L Total Protein 6.7 5.7-8.2 g/dL Albumin 4.0 3.2-4.8 g/dL Stool Occult Blood Sample #3 Negative Negative Magnesium Level 2.3 1.6-2.6 mg/dL Differential Total Cells Counted 100.0 100 Neutrophils % (Manual) 98 H 37.0-80.0 Band Neutrophils % (Manual) 0 Lymphocytes % (Manual) 2 L 10.0-50.0 Monocytes % (Manual) 0 0-12 Eosinophils % (Manual) 0 0-7 Basophils % (Manual) 0 0.0-2.0 Metamyelocytes % (manual) 0 Myelocytes % (Manual) 0 Promyelocytes % (Manual) 0 Blast Cells % (Manual) 0 Reactive Lymphocytes 0 Platelet Estimate Adequate Hypochromasia (manual) Slight Anisocytosis (manual) Slight Microcytosis Slight Ovalocytes Few Prothrombin Time 12.2 H 9.3-11.8 sec Prothrombin Time INR 1.17 H 0.9-1.15 Activated Partial Thromboplast Time 31.3 24.5-34.5 SEC Hemoglobin A1c 6.4 H <5.7 % A1C Iron Level 27 L 65-175 ug/dL Total Iron Binding Capacity 338 250-425 ug/dL Percent Iron Saturation 8.0 L 20-55 % Ferritin 19.8 L 22-322 ng/mL Vitamin B12 Level 607 211-911 pg/mL Vitamin D 25-Hydroxy 67.3 30.0-100 ng/mL Thyroid Stimulating Hormone (TSH) 3.87 0.55-4.78 uIU/mL Test 09/11/24 23:43 09/11/24 23:15 09/11/24 19:06 09/11/24 18:21 Range/Units Influenza Type A Antigen Negative Negative Influenza Type B Antigen Negative Negative SARS-CoV-2 Antigen (Rapid) Negative NEGATIVE Urine Color Light-yellow Yellow Urine Clarity Clear Clear Urine pH 5.0 5.0-9.0 Urine Specific [place] 1.011 1.001-1.035 Urine Protein Negative Negative Urine Ketones Negative Negative Urine Blood Negative Negative /uL Urine Nitrite Negative Negative Urine Bilirubin Negative Negative Urine Urobilinogen Normal Negative mg/dL Urine Leukocyte Esterase 3+ Negative /uL Urine RBC 1 0 - 3 /hpf Urine Microscopic WBC 29 H 0-3 /HPF Urine Squamous Epithelial Cells None seen <5 /hpf Urine Bacteria Many H None Seen /hpf Urine Creatinine 73.92 30.0-125.0 mg/dL Urine Protein/Creatinine Ratio 0.31 Urine Sodium 22 L 40-220 mmol/L Urine Glucose Normal Normal mg/dL Urine Total Protein 23.0 H 1-14 mg/dL Urine Opiates Screen Neg NEGATIVE Urine Fentanyl Screen Neg NEGATIVE Urine Barbiturates Screen Neg NEGATIVE Urine Phencyclidine Screen Neg NEGATIVE Urine Amphetamines Screen Neg NEGATIVE Urine Benzodiazepines Screen Neg NEGATIVE Urine Cocaine Screen Neg NEGATIVE Urine Cannabinoids Screen Neg NEGATIVE Troponin I High Sensitivity 21 </=54 ng/L B-Type Natriuretic Peptide 311.02 0-100 pg/mL Lipase 23 12-53 U/L Microbiology Date/Time Source Procedure Growth Status 09/12/24 03:31 Blood Blood Culture - Preliminary NO GROWTH AFTER 48 HOURS OF INCUBATION. Resulted 09/11/24 23:15 Voided Urine Urine Culture - Final Escherichia coli Complete Assessment Acute on chronic hypoxic respiratory failure secondary to probable CHF exacerba tion. Acute on chronic Moderately reduced congestive heart failure exacerbation-NYHA class 4. Pneumonia. AFib, rate controlled on Eliquis. COPD on 3 L home oxygen. Mild coronary artery disease. Sick sinus syndrome status post dual-chamber Biotronik pacemaker 2015. Obstructive apnea on CPAP. Acute cystitis. Diabetes mellitus type 2-A1c 6.4. ? CASS on CKD. Left-sided hydrocele. Anemia likely iron-deficiency. Secondary hypercoagulable state. History of left breast cancer status post surgery and tamoxifen therapy 2007. History of laparoscopic left radical nephrectomy 2013. History of colostomy 2019. Stage I decubitus sacral ulcer. Tunnel hemorrhoids. Diverticulosis. Plan/Recommendation I agree with your ongoing assessment and care of plan. Telemetry reviewed. Echocardiogram. Morphine and [place] for pain management. Lipitor. Coreg. IV antibiotics as ordered. GI prophylactics. Additional plan as per the hospital course. A total of 45 minutes was spent reviewing the patient record, examining the patient, making a diagnostic and therapeutic plan, discussing this plan with medical personnel, following up on diagnostic studies and following the patient for clinical stability excluding any and all procedures. At least 50% of this time was spent in direct, [id number] contact. Plan discussed with: Patient EVERTON SHELDON MD Sep 14, 2024 19:11
[2024-09-15] VITALS (22 sets, daily range): BP systolic 91–105; BP diastolic 34–50; PULSE 62–79; RESP 16–19; TEMP 97–98.2; O2SAT 87–99
[2024-09-15] MEDS: SODIUM CHLORIDE 0.9% 250 ML IV ONE ×2 (00:44→17:55)
[2024-09-15 01:45] LABS: Anion Gap 17 (5-15); Calcium 9.1 mg/dL (8.7-10.4); Carbon Dioxide 20 mmol/L (20-31)
[2024-09-15 01:47] LABS: Chloride 97 mmol/L (98-107); Potassium 5.5 mmol/L (3.5-5.1); Sodium 134 mmol/L (136-145)
[2024-09-15 01:50] LABS: BUN/Creatinine Ratio 20.5 (10.0-20.0); Blood Urea Nitrogen 72 mg/dL (9-23); Glucose 189 mg/dL (74-106)
[2024-09-15 06:59] LABS: Base Excess -7.6 mmol/L (-2.0-3.0)
[2024-09-15] MEDS: ALBUTEROL SULF 2.5 MG/0.5ML(0.5%) NEB SOLN NEB ONE (08:25)
[2024-09-15] MEDS: ALBUTEROL SULF 2.5 MG/0.5ML(0.5%) NEB SOLN ONE (08:25)
[2024-09-15] MEDS: SODIUM ZIRCONIUM CYCL 10 GM PAK PO ONE (09:01)
[2024-09-15] MEDS: DEXTROSE (50%) 50ML SYRG IV ONE (09:02)
[2024-09-15] MEDS: FUROSEMIDE 20 MG/2 ML VIAL IV ONE (09:05)
[2024-09-15] MEDS: InsuLIN REG 1unit/0.01ml Soln (100units/ml) IV ONE (09:08)
[2024-09-15] MEDS: CALCIUM GLUC 1,000mg/50ml-NS 50 ML IV ONE (09:17)
[2024-09-15] MEDS ORDERED: predniSONE 20 MG TAB PO SCH (10:00)
--- NOTE | 2024-09-15 10:44 | ECG ---
[facility] Test Date: 2024-09-14 Test Time: 12:59:01 Pat Name: FERMIN GONZALES Department: Room: [address] [place] [address] Gender: M Conservation Scientist: mateusz troy 4 maricruz horan : 1945 Requested By: YOLANDA DUONG Order Number: [id number] Reading MD: Diogo Chapa Measurements Intervals [place] Rate: 83 P: 0 AL: 0 QRS: 134 QRSD: 145 T: -69 QT: 443 QTc: 521 Interpretive Statements Atrial fibrillation IVCD, consider atypical RBBB Baseline wander in lead(s) V1 Electronically Signed On 09-17-2024 12:22:48 PDT by Diogo Chapa Please click the below link to view image of tracing.
[2024-09-15] MEDS: methylPREDNISolone SOD SUCC 125 MG/2 ML VL IV ONE (10:45)
[2024-09-15 11:09] LABS: Hematocrit 40.9 % (41.0-53.0); Hemoglobin 12.4 g/dL (13.5-17.5); Mean Corpuscular Hemoglobin 24.6 pg (28.0-32.0); Mean Corpuscular Hgb Conc. 30.4 g/dL (32.0-36.0); Mean Corpuscular Volume 80.9 fL (80.0-100.0); Platelet Count (auto) 197 10^3/uL (140-450); Red Blood Cells 5.06 10^6/uL (4.5-5.90); White Blood Cell 10.5 10^3/uL (4.4-10.8)
[2024-09-15 11:22] LABS: Red Cell Distribution Width 21.1 % (11.8-14.3)
[2024-09-15 11:24] LABS: Basophils % (manual) 0 (0.0-2.0); Blast Cells 0; Eosinophils % (manual) 0 (0-7); Metamyelocytes % 0; Myelocytes % 0; Promyelocytes % 0; Reactive Lymphocytes 0
[2024-09-15 11:26] LABS: Alanine Aminotransferase 13 U/L (7-40); Albumin 3.7 g/dL (3.2-4.8); Alkaline Phosphatase 76 U/L (46-116); Anion Gap 16 (5-15); BUN/Creatinine Ratio 20.9 (10.0-20.0); Calcium 9.4 mg/dL (8.7-10.4); Carbon Dioxide 22 mmol/L (20-31); Magnesium 2.2 mg/dL (1.6-2.6); Total Protein 6.3 g/dL (5.7-8.2)
[2024-09-15 11:27] LABS: Bilirubin, Total 0.8 mg/dL (0.2-1.0)
[2024-09-15 11:29] LABS: Aspartate Aminotransferase 10 U/L (13-40); Blood Urea Nitrogen 77 mg/dL (9-23); Chloride 96 mmol/L (98-107); Glucose 230 mg/dL (74-106); Sodium 134 mmol/L (136-145)
[2024-09-15] MEDS: DOXYCYCLINE 100MG/100ML 100 ML IV SCH (11:34)
[2024-09-15 11:59] LABS: Lactic Acid w/Reflex 2.2 mmol/L (0.4-2.0)
[2024-09-15 13:58] LABS: Band Neutrophils % (manual) 1; Lymphocytes % (manual) 5 (10.0-50.0); Monocytes % (manual) 7 (0-12)
[2024-09-15 14:00] LABS: Anisocytosis Slight; Hypochromia Slight; Ovalocytes FEW; Platelet Estimate Adequate; Tear Drop Cells FEW
[2024-09-15 14:24] LABS: Creatinine, Urine 141.86 mg/dL (30.0-125.0)
[2024-09-15] MEDS: D5W/SOD CHL 0.45% 500 ML IV SCH (14:37)
[2024-09-15] MEDS ORDERED: SODIUM CHLORIDE 0.9% 1,000 ML IV SCH (16:00)
--- NOTE | 2024-09-15 17:30 | DVHPNRES ---
Progress Note Date Seen: Sep 15, 2024 Resident Creating Document: SHELTON KOENIG RESIDENT Medical Necessity Reason Pt with a Central, PICC or Fol: No The following are medically ne: Xavier Catheter Subjective Review of Systems Mr. Andrei Simmons is a 79-year-old male came reports medical history of COPD on 3.5 L oxygen, moderately reduced congestive heart failure, mild CAD, AFib on Eliquis, diabetes mellitus type 2 status post right AKA, sick sinus syndrome status post dual chamber Biotronik pacemaker [address] Ortiz, ANA MARIA on CPAP, left breast cancer status post surgery on tamoxifen 1999 and, left nephrectomy due to left renal mass 2013, colostomy 2018, internal hemorrhoids, diverticulosis who presents to the ER with a chief complaint of shortness of breaths and generalized edema for the past 2 weeks. Patient reports that he has chronic cough which recently worsened 2 weeks back and became productive with yellowish phlegm following which he got short of breath and orthopneic associated with generalized weakness, body aches and fatigue. Also reported nausea but no vomiting or chest pain. He says that he is compliant with his Lasix 20 mg b.i.d.. Patient increased his oxygen from 3.5-4 L and started taking nebulized treatments which did improve him for the time being. He did not increases intake of inhalers which he takes b.i.d.. Initial lab workup revealed neutrophilia 83.2%, MCV 78.4, RDW 21.1, serum creatinine 2.03, BUN 36, HGB A1c 6.4, iron 27, ferritin 19.8, bilirubin 1.3, BNP 311, UDS negative, COVID and flu negative, urinalysis leukocyte esterase 3+, WBC 29, bacteria many. CXR- Pulmonary edema. Mild bibasilar subsegmental atelectasis/consolidation. Ultrasound of the testicle-Large hydrocele left scrotum with a heterogeneous nodule measuring a cm in size fixed to the anterior wall of the Hydrocele. Arterial Doppler of the lower extremity revealed-Multifocal tandem atherosclerotic plaque noted throughout the bilateral lower extremity arteries. Bilateral lower extremity Doppler study negative for DVT. Renal ultrasound revealed-Right renal cortical thinning and increased echotexture suggestive of medical renal disease.Status post left nephrectomy. Patient had a left heart catheterization in [address] TEE which showed mild CAD Last colonoscopy 2022 Last echo December 2023 showed EF 45% He was last admitted at this facility in January 2024 for acute respiratory failure with sepsis secondary to infected sacral ulcer with Pseudomonas and MRSA and Proteus. Past medical surgical history: See above Social history: Patient is nonambulatory. 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 Quit smoking in 1999 does not drink, denies illicit drug use. Lives with and daughter Patient seen and examined at the bedside. Currently saturating 94 on 5 L NC supplementation. Lasix dose 60 mg IV push was given by the ER. Continue 40 mg TID. Smoke: Quit ALCOHOL: none Drugs: None Lives: with Family Patient was seen today for clinical evaluation. Labs and chart reviewed. ECHO 2D ON 09/13/2024 revealed LVEF 40%. Moderate degree of LVH, moderate degree of left ventricular diastolic dysfunction. Remarkably dilated right ventricle and significantly hypokinetic. Has been nuclear systolic pressure 98 mm of mercury. Moderately dilated left atrium. Patient was hypoxic in the morning, blood pressure also towards the lower end. Patient was given IV fluid. Discontinued Lasix. Patient has CASS on CKD. Patient also had hyperkalemia, treatment given according to hypokalemia protocol. Ordered cardiology consult for further evaluation and care. Patient's pH revealed metabolic acidosis and respiratory acidosis. ABG revealed pH 7.159, pCO2 56.5, PO2 75.2, [id number]. Patient was put on 4 BiPAP for 2 hours and also ordered for BiPAP at night. Objective vital signs Vital Sign Date Time Temp Pulse Resp B/P (MAP) Pulse Ox O2 Delivery O2 Flow Rate FiO2 09/15/24 16:30 97.2 66 16 98/42 (60) 93 97.2 09/15/24 11:31 Facial BiPAP Mask 30 09/15/24 10:00 5.0 Total Intake and Output 09/14/24 09/14/24 09/15/24 15:00 23:00 07:00 Intake Total 900 ml 300 ml Output Total 100 ml 125 ml 300 ml Balance -100 ml 775 ml 0 ml medications Current Medications Medications Dose Ordered Sig/Paramjit Route Start Time Stop Time Status Last Admin Dose Admin Nitroglycerin 0.4 mg Q5MINP PRN SL 09/12/24 03:00 Hold Morphine Sulfate 2 mg Q30M PRN IV 09/12/24 03:00 Levalbuterol HCl 1.25 mg Q6HR NEB 09/12/24 06:00 09/15/24 11:30 1.25 MG Enoxaparin Sodium 100 mg Q12HR SC 09/12/24 10:00 09/15/24 11:34 100 MG Diagnostic Test (Pha) 1 strip ACHS 09/12/24 07:00 09/15/24 11:44 1 STRIP Insulin Human Regular ACHS SC 09/12/24 07:00 09/15/24 11:54 4 UNITS Dextrose 50 ml UD PRN IV 09/12/24 03:15 Atorvastatin Calcium 20 mg DAILY PO 09/12/24 10:00 09/14/24 09:07 20 MG Carvedilol 3.125 mg BID PO 09/12/24 10:00 Hold 09/14/24 09:07 3.125 MG Acetaminophen 500 mg Q4HPRN PRN PO 09/12/24 03:30 Acetaminophen/ Hydrocodone Bitart 1 tab Q6HPRN PRN PO 09/12/24 03:30 Morphine Sulfate 1 mg Q4HPRN PRN IV 09/12/24 03:30 Ipratropium [place] 0.5 mg Q6HR NEB 09/12/24 06:00 09/15/24 11:30 0.5 MG Ondansetron HCl 4 mg Q4HPRN PRN IV 09/12/24 04:00 09/12/24 09:46 4 MG Pantoprazole Sodium 40 mg DAILY IV 09/13/24 10:00 09/14/24 09:06 40 MG Ceftriaxone Sodium 50 ml @ 100 mls/hr Q24H IV 09/13/24 01:00 09/15/24 01:33 100 MLS/HR Sildenafil Citrate 20 mg TID@08,14,20 PO 09/14/24 14:56 Doxycycline Hyclate 100 ml @ 50 mls/hr Q12H IV 09/15/24 10:45 09/15/24 11:34 50 MLS/HR Sodium Chloride 1,000 ml @ 200 mls/hr Q5H IV 09/15/24 16:00 Examination General examination- awake, alert HEENT- PEERLA, no acute nasal discharge Cardiovascular- S1-S2 audible, rate and rhythm regular, no murmur Respiratory- no wheezing or crackles Gastrointestinal-nontender, bowel sound+. Nondistended Musculoskeletal-no acute joint swelling or tenderness or redness Lower extremity- right above-knee amputation Neurological- cranial nerves intact, no acute dysarthria or dysphagia Psychiatry- denies depression or SI or HI Skin- no acute rash or purpura laboratory and microbiology Laboratory Tests 09/15/24 10:28 Test 09/15/24 10:28 Range/Units Serum Glucose 230 H 74-106 mg/dL Microbiology Date/Time Source Procedure Growth Status 09/12/24 03:31 Blood Blood Culture - Preliminary NO GROWTH AFTER 72 HOURS OF INCUBATION. Resulted 09/11/24 23:15 Voided Urine Urine Culture - Final Escherichia coli Complete Problem List/Assessment/Plan Problem List/Assessment/Plan Assessment and plan- Acute on chronic hypoxic respiratory failure secondary pneumonia/ CHF exacerbation Acute on chronic Moderately reduced congestive heart failure exacerbation-NYHA class 4 Acute pneumonia- Gram-negative pneumonia AFib, rate controlled on Eliquis Mild coronary artery disease Sick sinus syndrome status post dual-chamber Biotronik pacemaker 2015 Obstructive apnea on CPAP Pulmonary hypertension -ECHO 2D ON 09/13/2024 revealed LVEF 40%. Moderate degree of LVH, moderate degree of left ventricular diastolic dysfunction. Remarkably dilated right ventricle and significantly hypokinetic. Has been nuclear systolic pressure 98 mm of mercury. Moderately dilated left atrium. Continue ceftriaxone and doxycycline as prescribed Lovenox 1 mg per kg b.i.d. for AFib Continue nebulized treatments for COPD -urine culture-E coli, sensitive to ceftriaxone -continue sildenafil 20 mg t.i.d. 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 -avoid dehydration and nephrotoxic drugs # hyperlipidemia # acute complicated cystitis with the endocrine damage --urine culture-E coli, sensitive to ceftriaxone Left-sided hydrocele Continue fluid diuresis Anemia likely iron-deficiency MCV 78 Hyper lactatemia Secondary hypercoagulable state History of left breast cancer status post surgery and tamoxifen therapy 2007 History of laparoscopic left radical nephrectomy 2013 History of colostomy 2018 Lower extremity Doppler negative for DVT Lower extremity arterial -peripheral arterial disease Stage I decubitus sacral ulcer Wound care consulted # peripheral arterial disease -continue current management Tunnel hemorrhoids Diverticulosis Monitor Diet: Cardiac diet Goals of care, Code status ; discussed with >15 minutes PUD prophylaxis: Pantoprazole DVT prophylaxis: Lovenox Plan discussed with Dr. Vallejo , nursing staff, Total time spent on patient evaluation, chart review, assessment and plan, discussion discussion >35 minutes Plan discussed with: Patient, Other (RN) My Orders My Orders Orders - SHELTON KOENIG Procedure Category Date Status Time Sodium Chloride 0.9% PHA 09/15/24 In Process 16:00 *Dr. [employer] CONS 09/15/24 Transmitted -High [facility] 17:21 Dietary Evaluation Review Comments: 1) Matthieu 1 pk daily (ordered per ONS protocol) 2) CCHO 75gm + cardiac 3) Refer Examiner Rating Clerk on DC 4) Continue current plan of care Expected Outcomes/Goals: To meet >75% estimated needs Fu 3-5 days Date of Service: Sep 15, 2024 Billing Provider: YOLANDA ROBERTS MD Common Visit Codes: 66475-[id number] INP/OBS CARE(HIGH) SHELTON KOENIG Sep 15, 2024 17:30 YOLANDA ROBERTS MD Sep 17, 2024 00:35
[2024-09-15 20:24] LABS: Base Excess -4.1 mmol/L (-2.0-3.0)
--- NOTE | 2024-09-15 21:51 | DVHPN2 ---
Progress Note - Dictate Date Seen: Sep 15, 2024 Medical Necessity Reason Pt with a Central, PICC or Fol: No The following are medically ne: Xavier Catheter Subjective Patient was seen and evaluated in follow up. Patient was hypoxic in the morning, blood pressure also towards the lower end. Patient was given IV fluids. ABG revealed pH 7.159, pCO2 56.5, PO2 75.2, [id number]. WBC is WNL. LA 2.2, BUN 77, Market Superintendent 3.68. Echo on 09/13/2024 revealed LVEF 40%. Moderate degree of LVH, moderate degree of left ventricular diastolic dysfunction. Remarkably dilated right ventricle and significantly hypokinetic. Has been nuclear systolic pressure 98 mm of mercury. Moderately dilated left atrium. Telemetry reviewed. vital signs Vital Sign Date Time Temp Pulse Resp B/P (MAP) Pulse Ox O2 Delivery O2 Flow Rate FiO2 09/15/24 18:30 74 18 96 09/15/24 18:15 Oxymizer 5 30 30 09/15/24 16:30 97.2 98/42 (60) 97.2 Total Intake and Output 09/14/24 09/14/24 09/15/24 15:00 23:00 07:00 Intake Total 900 ml 300 ml Output Total 100 ml 125 ml 300 ml Balance -100 ml 775 ml 0 ml medications Current Medications Medications Dose Ordered Sig/Paramjit Route Start Time Stop Time Status Last Admin Dose Admin Nitroglycerin 0.4 mg Q5MINP PRN SL 09/12/24 03:00 Hold Morphine Sulfate 2 mg Q30M PRN IV 09/12/24 03:00 Levalbuterol HCl 1.25 mg Q6HR NEB 09/12/24 06:00 09/15/24 11:30 1.25 MG Diagnostic Test (Pha) 1 strip ACHS 09/12/24 07:00 09/15/24 17:00 1 STRIP Insulin Human Regular ACHS SC 09/12/24 07:00 09/15/24 17:58 4 UNITS Dextrose 50 ml UD PRN IV 09/12/24 03:15 Atorvastatin Calcium 20 mg DAILY PO 09/12/24 10:00 09/14/24 09:07 20 MG Carvedilol 3.125 mg BID PO 09/12/24 10:00 Hold 09/14/24 09:07 3.125 MG Acetaminophen 500 mg Q4HPRN PRN PO 09/12/24 03:30 Acetaminophen/ Hydrocodone Bitart 1 tab Q6HPRN PRN PO 09/12/24 03:30 Morphine Sulfate 1 mg Q4HPRN PRN IV 09/12/24 03:30 Ipratropium [place] 0.5 mg Q6HR NEB 09/12/24 06:00 09/15/24 11:30 0.5 MG Ondansetron HCl 4 mg Q4HPRN PRN IV 09/12/24 04:00 09/12/24 09:46 4 MG Pantoprazole Sodium 40 mg DAILY IV 09/13/24 10:00 09/14/24 09:06 40 MG Ceftriaxone Sodium 50 ml @ 100 mls/hr Q24H IV 09/13/24 01:00 09/15/24 01:33 100 MLS/HR Sildenafil Citrate 20 mg TID@08,14,20 PO 09/14/24 14:56 Doxycycline Hyclate 100 ml @ 50 mls/hr Q12H IV 09/15/24 10:45 09/15/24 11:34 50 MLS/HR Enoxaparin Sodium 100 mg Q24H SC 09/16/24 10:00 objective GENERAL: Alert and oriented x 3. No acute distress. EYES: PERRL, EOMI. Anicteric. HENT: Moist mucous membranes. LUNGS: breath sounds. CARDIOVASCULAR: Regular rate and rhythm. ABDOMEN: Soft, nontender and nondistended. Patient has a functioning colostomy bag noted to the right-sided abdomen. EXTREMITIES: No edema. Right AKA, atrophic left leg. NEUROLOGIC: No focal neurological deficits. SKIN: Warm, dry. laboratory and microbiology Laboratory Tests 09/15/24 10:28 Test 09/15/24 10:28 Range/Units Serum Glucose 230 H 74-106 mg/dL Problem List Acute on chronic hypoxic respiratory failure secondary to probable CHF exacerbation. Acute on chronic Moderately reduced congestive heart failure exacerbation-NYHA class 4. Pneumonia. AFib, rate controlled on Eliquis. COPD on 3 L home oxygen. Mild coronary artery disease. Sick sinus syndrome status post dual-chamber Biotronik pacemaker 2016. Obstructive apnea on CPAP. Acute cystitis. Diabetes mellitus type 2-A1c 6.4. ? CASS on CKD. Left-sided hydrocele. Anemia likely iron-deficiency. Secondary hypercoagulable state. History of left breast cancer status post surgery and tamoxifen therapy 2007. History of laparoscopic left radical nephrectomy 2013. History of colostomy 2019. Stage I decubitus sacral ulcer. Tunnel hemorrhoids. Diverticulosis. Assessment/Plan Continued all current supportive medical care. Morphine and [place] for pain management. Lipitor. Coreg. IV antibiotics as ordered. GI prophylactics. Additional plan as per the hospital course. Dietary Evaluation Review Comments: 1) Matthieu 1 pk daily (ordered per ONS protocol) 2) CCHO 75gm + cardiac 3) Refer Social Psychologist on DC 4) Continue current plan of care Expected Outcomes/Goals: To meet >75% estimated needs Fu 3-5 days Plan discussed with: Patient EVERTON SHELDON MD Sep 15, 2024 21:51
[2024-09-16] VITALS (46 sets, daily range): BP systolic 84–139; BP diastolic 24–84; PULSE 64–123; RESP 12–34; TEMP 97.4–98.3; O2SAT 87–100
[2024-09-16] MEDS: SODIUM CHLORIDE 0.9% 500 ML IV ONE (06:37)
[2024-09-16 07:50] LABS: Basophils # (auto) 0 10 ^3/uL (0-0.2); Eosinophils # (auto) 0 10 ^3/uL (0-0.8); Eosinophils % (auto) 0.2 % (0.0-7.0); Lymphocytes # (auto) 0.5 10 ^3/uL (0.4-5.4); Neutrophils # (auto) 10.2 10 ^3/uL (1.6-8.6); Nucleated Red Blood Cells % 0.1 %; Platelet Count (auto) 193 10^3/uL (140-450); White Blood Cell 11.7 10^3/uL (4.4-10.8)
[2024-09-16 07:53] LABS: Basophils % (auto) 0.1 % (0.0-2.0); Hematocrit 38.8 % (41.0-53.0); Lymphocytes % (auto) 4.1 % (10.0-50.0); Mean Corpuscular Hemoglobin 24.2 pg (28.0-32.0); Mean Corpuscular Hgb Conc. 31.1 g/dL (32.0-36.0); Monocytes % (auto) 8.9 % (0.0-12.0); Neutrophils % (auto) 86.7 % (37.0-80.0); Red Blood Cells 4.97 10^6/uL (4.5-5.90)
[2024-09-16 08:09] LABS: Alanine Aminotransferase 13 U/L (7-40); Alkaline Phosphatase 72 U/L (46-116); Anion Gap 13 (5-15); Aspartate Aminotransferase 13 U/L (13-40); BUN/Creatinine Ratio 23.2 (10.0-20.0); Carbon Dioxide 23 mmol/L (20-31); Chloride 98 mmol/L (98-107); Magnesium 2.1 mg/dL (1.6-2.6); Potassium 4.8 mmol/L (3.5-5.1)
[2024-09-16 08:10] LABS: Albumin 3.6 g/dL (3.2-4.8); Bilirubin, Total 0.8 mg/dL (0.2-1.0)
[2024-09-16 08:14] LABS: Glucose 211 mg/dL (74-106); Sodium 134 mmol/L (136-145)
[2024-09-16 08:16] LABS: Blood Urea Nitrogen 88 mg/dL (9-23)
[2024-09-16] MEDS: ENOXAPARIN SOD 100 MG/1 ML SYRINGE SC SCH (09:04)
--- NOTE | 2024-09-16 09:16 | CONS ---
Pharmacy Clinical Information: From Heart Failure Potential Fallout Report on CQM Application, Troy Sheffield is a 79 year old male with PMH of COPD, CHF, CAD, Afib, T2DM, SSS, left nephrectomy. Consider switching carvedilol to metoprolol succinate due to COPD. MRA and ACEi/ARB/ARNi not recommended due to eGFR < 30, and K>5. SGLT2i not recommended due to CASS and UTI. MICH BERNSTEIN PHARMACIST Sep 16, 2024 09:16
[2024-09-16] MEDS ORDERED: LACTATED RINGER'S 500 ML IV ONE (10:00)
--- NOTE | 2024-09-16 10:22 | DVH ---
INDICATION: decreased left breath sounds, sob TECHNIQUE: Single frontal view of the chest was obtained COMPARISON: XY CHEST PORTABLE on DOS: 09/14/24, XY CHEST XRAY 1 VIEW on DOS: 09/11/24, XY CHEST XRAY 1 VIEW on DOS: 01/29/24, XY CHEST PORTABLE on DOS: 01/26/24, XY CHEST PORTABLE on DOS: 01/23/24, XY CHEST P ORTABLE on DOS: 09/14/24 FINDINGS: Lines and Tubes: left-sided approach dual lead pacemaker terminates within the right atrium and rig ht ventricle. Lungs: Diffuse interstitial prominence. Indistinctness of the left hemidiaphragm. No pneumothorax. Cardiomediastinal contours: Mild cardiomegaly with moderate atherosclerotic calcification and uncoili ng of the aorta. Bones: No acute osseous abnormality. Surgical clips are noted over the bilateral axilla. IMPRESSION: Cardiomegaly with pulmonary vascular congestion. Possible trace left-sided pleural effusion. Underl yoly infectious process can not be excluded
--- NOTE | 2024-09-16 10:35 | DVHINCON2 ---
Date of service: Sep 16, [address] 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 Patient presents to the hospital complaining of shortness of breath. Over the last several days patient has been given diuretics to improve fluid removal however due to significant hypotension patient diuresis has been somewhat ineffective. Patient now has progressive worsening shortness of breath nephrology consulted due to worsening renal function. Allergies: Coded Allergies: Cephalexin (Verified Allergy, Severe, 09/06/15) Cefaclor (Verified Allergy, Unknown, 09/06/15) Home Meds Active Scripts Nystatin-Triamcinolone (Triamcinolone/Nystatin) Oin, 1 APPLIC TOP BID for 10 Days, #30 GRAMS 1 Refill Apply to groin b.i.d. while symptomatic. Stop at day 10 Prov:RADHA SANCHEZ ARTIFICIAL BREEDING TECHNICIAN 02/01/24 Sulfamethoxazole W/Trimethopri (Bactrim Ds Tablet) 1 Tab Tb, 1 TAB PO BID for 10 Days, #20 TAB Prov:RADHA SANCHEZ ARTIFICIAL BREEDING TECHNICIAN 02/01/24 Reported Medications Furosemide (Furosemide) 20 Mg Tab, 1 TAB PO DAILY for 90 Days, #90 01/24/24 Cilostazol (Cilostazol) 50 Mg Tab, 1 TAB PO BID for 90 Days, #180 01/24/24 Carvedilol (Carvedilol) 3.125 Mg Tab, 1 TAB PO BID for 90 Days, #180 01/24/24 Atorvastatin Calcium (Lipitor) 20 Mg Tab, 1 TAB PO DAILY for 90 Days, #90 01/24/24 Ogffvwqxxvw-Sfstltpoeazu-Vdlbk (Trelegy Ellipta 100-62.5-25 Mcg/INH) 1 Aer Aer, 1 PUFF INH DAILY for 90 Days, #180 01/24/24 Insulin Glargine (Lantus Solostar) 100 Unit/Ml Inj, UNIT SC UD for 75 Days, #15 01/24/24 Apixaban Base (ELIQUIS) 2.5 Mg Tab, 1 TAB PO BID for 90 Days, #180 09/06/15 Current Medications Current Medications Medications (Trade) Dose Ordered Sig/Paramjit Route PRN Reason Start Time Stop Time Status Last Admin Doxycycline Hyclate 100 ml @ 50 mls/hr Q12H IV 09/15/24 10:45 09/16/24 10:19 Dextrose/Sodium Chloride 500 ml @ 100 mls/hr Q5H IV 09/15/24 12:00 09/15/24 15:56 DC 09/15/24 14:37 Sodium Chloride 1,000 ml @ 200 mls/hr Q5H IV 09/15/24 16:00 09/15/24 17:37 DC Enoxaparin Sodium (Lovenox) 100 mg Q24H SC 09/16/24 10:00 09/16/24 09:04 Albumin Human 100 ml @ 100 mls/hr Q4HR IV 09/16/24 10:30 09/16/24 18:59 UNV Furosemide 100 mg/ Sodium Chloride 110 ml @ 5.5 mls/hr Q20H IV 09/16/24 10:30 UNV Dopamine HCl/ Dextrose 250 ml @ 10.444 mls/ hr [id number] IV 09/16/24 10:30 UNV Family History: FH: OK (myocardial infarction) G8 MOTHER, Onset:Unknown G8 BROTHER, Onset:Unknown G8 SISTER, Onset:Unknown FH: skin cancer G8 FATHER, Onset:Unknown FH: testicular cancer G8 FATHER, Onset:Unknown Family history: Cardiovascular disease G8 MOTHER, Onset:Unknown G8 BROTHER, Onset:Unknown G8 SISTER, Onset:Unknown Family history: Diabetes mellitus G8 MOTHER G8 BROTHER G8 SISTER Review of Systems Shortness of breath H&P Exam Vital Signs/I&O Vital Sign Date Time Temp Pulse Resp B/P (MAP) Pulse Ox O2 Delivery O2 Flow Rate FiO2 09/16/24 06:27 79 16 99 09/16/24 06:15 Oxymizer 5 N/A 09/16/24 05:00 97/39 (58) Intake and Output 09/15/24 09/16/24 19:00 07:00 Intake Total 340 ml 150 ml Output Total 150 ml 100 ml Balance 190 ml 50 ml Intake Oral 240 ml 0 ml IV Total 100 ml 150 ml Output Urine Total 150 ml 100 ml Physical Exam Morbidly obese white male Mildly confused Mild distress Decreased inspiratory effort Regular rate and rhythm Large abdomen with colostomy Venous stasis bilateral ankles Xavier catheter Labs/Diagnostic Data Labs/Diagnostic Data Laboratory Tests Test 09/16/24 07:01 09/16/24 06:06 09/15/24 22:30 09/15/24 20:00 Range/Units White Blood Count 11.7 H 4.4-10.8 10^3/uL Red Blood Count 4.97 4.5-5.90 10^6/uL Hemoglobin 12.0 L 13.5-17.5 g/dL Hematocrit 38.8 L 41.0-53.0 % Mean Corpuscular Volume 78.0 L 80.0-100.0 fL Mean Corpuscular Hemoglobin 24.2 L 28.0-32.0 pg Mean Corpuscular Hemoglobin Concent 31.1 L 32.0-36.0 g/dL Red Cell Distribution Width 21.0 H 11.8-14.3 % Platelet Count 193 140-450 10^3/uL Mean Platelet Volume 7.4 6.9-10.8 fL Neutrophils (%) (Auto) 86.7 H 37.0-80.0 % Lymphocytes (%) (Auto) 4.1 L 10.0-50.0 % Monocytes (%) (Auto) 8.9 0.0-12.0 % Eosinophils (%) (Auto) 0.2 0.0-7.0 % Basophils (%) (Auto) 0.1 0.0-2.0 % Neutrophils # (Auto) 10.2 H 1.6-8.6 10 ^3/uL Lymphocytes # (Auto) 0.5 0.4-5.4 10 ^3/uL Monocytes # (Auto) 1.0 0-1.3 10 ^3/uL Eosinophils # (Auto) 0 0-0.8 10 ^3/uL Basophils # (Auto) 0 0-0.2 10 ^3/uL Nucleated Red Blood Cells 0.1 % Sodium Level 134 L 136-145 mmol/L Potassium Level 4.8 3.5-5.1 mmol/L Chloride Level 98 98-107 mmol/L Carbon Dioxide Level 23 20-31 mmol/L Anion Gap 13 5-15 Blood Urea Nitrogen 88 #*H 9-23 mg/dL Creatinine 3.80 H 0.700-1.30 mg/dL Glomerular Filtration Rate Calc 16 >90 mL/min BUN/Creatinine Ratio 23.2 H 10.0-20.0 Serum Glucose 211 H 74-106 mg/dL Lactic Acid Level 1.4 0.4-2.0 mmol/L Calcium Level 9.0 8.7-10.4 mg/dL Magnesium Level 2.1 1.6-2.6 mg/dL Total Bilirubin 0.8 0.2-1.0 mg/dL Aspartate Amino Transferase (AST) 13 13-40 U/L Alanine Aminotransferase (ALT) 13 7-40 U/L Alkaline Phosphatase 72 46-116 U/L Total Protein 6.0 5.7-8.2 g/dL Albumin 3.6 3.2-4.8 g/dL POC Glucose 222 H 203 H 70-106 mg/dl Blood Gas Specimen Type Arterial Blood Gas Sample Site Right radial Blood Gas Patient Temperature 37.0 Arterial Blood Date Drawn [id number] Arterial Blood pH 7.309 L 7.350-7.450 Arterial Blood Partial Pressure CO2 45.2 35.0-48.0 mmHg Arterial Blood Partial Pressure O2 51.2 *L 83.0-108.0 mmHg Arterial Blood HCO3 22.2 21.0-28.0 mmol/L Arterial Blood Oxygen Saturation 81.6 *L 94.0-98.0 % Arterial Blood Base Excess -4.1 L -2.0-3.0 mmol/L Arterial Blood Oxyhemoglobin 80.2 L 94.0-98.0 % Arterial Blood Carboxyhemoglobin 1.3 0.5-1.5 % Arterial Blood Methemoglobin 0.4 0.0-1.5 % Yohannes Test Yes Blood Gas Total Hemoglobin 13.50 13.5-17.5 g/dL Blood Gas Liter Flow 3.00 Blood Gas Modality Oxymizer FiO2 % 32.0 Blood Gas Critical Value Read Back Yes Blood Gas Notified Whom jose Greenberg. Blood Gas Notified Time [id number] Blood Gas Notified By Laser Printing Operator albertina Lackey 09/15/24 17:49 09/15/24 13:45 09/15/24 11:43 09/15/24 10:28 Range/Units POC Glucose 227 H 225 H 70-106 mg/dl Urine Creatinine 141.86 H 30.0-125.0 mg/dL Urine Sodium 11 L 40-220 mmol/L White Blood Count 10.5 # 4.4-10.8 10^3/uL Red Blood Count 5.06 4.5-5.90 10^6/uL Hemoglobin 12.4 L 13.5-17.5 g/dL Hematocrit 40.9 L 41.0-53.0 % Mean Corpuscular Volume 80.9 80.0-100.0 fL Mean Corpuscular Hemoglobin 24.6 L 28.0-32.0 pg Mean Corpuscular Hemoglobin Concent 30.4 L 32.0-36.0 g/dL Red Cell Distribution Width 21.1 H 11.8-14.3 % Platelet Count 197 140-450 10^3/uL Mean Platelet Volume 7.3 6.9-10.8 fL Neutrophils (%) (Auto) 37.0-80.0 % Lymphocytes (%) (Auto) 10.0-50.0 % Monocytes (%) (Auto) 0.0-12.0 % Basophils (%) (Auto) 0.0-2.0 % Neutrophils # (Auto) 1.6-8.6 10 ^3/uL Lymphocytes # (Auto) 0.4-5.4 10 ^3/uL Monocytes # (Auto) 0-1.3 10 ^3/uL Differential Total Cells Counted 100.0 100 Neutrophils % (Manual) 87 H 37.0-80.0 Band Neutrophils % (Manual) 1 Lymphocytes % (Manual) 5 L 10.0-50.0 Monocytes % (Manual) 7 0-12 Eosinophils % (Manual) 0 0-7 Basophils % (Manual) 0 0.0-2.0 Metamyelocytes % (manual) 0 Myelocytes % (Manual) 0 Promyelocytes % (Manual) 0 Blast Cells % (Manual) 0 Reactive Lymphocytes 0 Platelet Estimate Adequate Hypochromasia (manual) Slight Poikilocytosis (manual) Slight Anisocytosis (manual) Slight Microcytosis Slight Tear Drop Cells Few Ovalocytes Few [place] Cells Few Sodium Level 134 L 136-145 mmol/L Potassium Level 5.0 3.5-5.1 mmol/L Chloride Level 96 L 98-107 mmol/L Carbon Dioxide Level 22 20-31 mmol/L Anion Gap 16 H 5-15 Blood Urea Nitrogen 77 H 9-23 mg/dL Creatinine 3.68 H 0.700-1.30 mg/dL Glomerular Filtration Rate Calc 16 >90 mL/min BUN/Creatinine Ratio 20.9 H 10.0-20.0 Serum Glucose 230 H 74-106 mg/dL Lactic Acid Level 2.2 *H 0.4-2.0 mmol/L Calcium Level 9.4 8.7-10.4 mg/dL Magnesium Level 2.2 1.6-2.6 mg/dL Total Bilirubin 0.8 0.2-1.0 mg/dL Aspartate Amino Transferase (AST) 10 L 13-40 U/L Alanine Aminotransferase (ALT) 13 7-40 U/L Alkaline Phosphatase 76 46-116 U/L Total Protein 6.3 5.7-8.2 g/dL Albumin 3.7 3.2-4.8 g/dL Test 09/15/24 08:40 09/15/24 06:53 09/15/24 05:57 09/15/24 01:12 Range/Units POC Glucose 212 H 173 H 70-106 mg/dl Blood Gas Specimen Type Arterial Blood Gas Sample Site Right brachial Blood Gas Patient Temperature 37.0 Arterial Blood Date Drawn [id number] Arterial Blood pH 7.212 *L 7.350-7.450 Arterial Blood Partial Pressure CO2 52.2 H 35.0-48.0 mmHg Arterial Blood Partial Pressure O2 79.7 L 83.0-108.0 mmHg Arterial Blood HCO3 20.5 L 21.0-28.0 mmol/L Arterial Blood Oxygen Saturation 93.3 L 94.0-98.0 % Arterial Blood Base Excess -7.6 L -2.0-3.0 mmol/L Arterial Blood Oxyhemoglobin 91.4 L 94.0-98.0 % Arterial Blood Carboxyhemoglobin 1.5 0.5-1.5 % Arterial Blood Methemoglobin 0.5 0.0-1.5 % Yohannes Test N/a Blood Gas Total Hemoglobin 13.60 13.5-17.5 g/dL Blood Gas Liter Flow 6.00 Blood Gas Modality Nasal cannula FiO2 % 44.0 Blood Gas Critical Value Read Back Yes Blood Gas Notified Whom Dr. villarreal Blood Gas Notified Time [id number] Blood Gas Notified By Angel franz rrt Sodium Level 134 L 136-145 mmol/L Potassium Level 5.5 H 3.5-5.1 mmol/L Chloride Level 97 L 98-107 mmol/L Carbon Dioxide Level 20 20-31 mmol/L Anion Gap 17 H 5-15 Blood Urea Nitrogen 72 #H 9-23 mg/dL Creatinine 3.52 H 0.700-1.30 mg/dL Glomerular Filtration Rate Calc 17 >90 mL/min BUN/Creatinine Ratio 20.5 H 10.0-20.0 Serum Glucose 189 H 74-106 mg/dL Lactic Acid Level 1.4 0.4-2.0 mmol/L Calcium Level 9.1 8.7-10.4 mg/dL B-Type Natriuretic Peptide 761.05 0-100 pg/mL Test 09/14/24 22:12 09/14/24 21:55 09/14/24 21:23 09/14/24 20:39 Range/Units Urine Creatinine 125.37 H 30.0-125.0 mg/dL Urine Sodium 11 L 40-220 mmol/L Urine Total Protein 87.7 H 1-14 mg/dL Blood Gas Specimen Type Arterial Blood Gas Sample Site Right radial Blood Gas Patient Temperature 37.0 Arterial Blood Date Drawn [id number] Arterial Blood pH 7.223 *L 7.350-7.450 Arterial Blood Partial Pressure CO2 49.0 H 35.0-48.0 mmHg Arterial Blood Partial Pressure O2 64.9 L 83.0-108.0 mmHg Arterial Blood HCO3 19.7 L 21.0-28.0 mmol/L Arterial Blood Oxygen Saturation 88.2 L 94.0-98.0 % Arterial Blood Base Excess -8.0 L -2.0-3.0 mmol/L Arterial Blood Oxyhemoglobin 86.5 L 94.0-98.0 % Arterial Blood Carboxyhemoglobin 1.3 0.5-1.5 % Arterial Blood Methemoglobin 0.6 0.0-1.5 % Yohannes Test Yes Blood Gas Total Hemoglobin 13.80 13.5-17.5 g/dL Blood Gas Modality Mask - bipap FiO2 % 40.0 Blood Gas EPAP 5 Blood Gas IPAP 18 Blood Gas Critical Value Read Back Yes Blood Gas Notified Whom Dr. villarreal Blood Gas Notified Time [id number] Blood Gas Notified By Laser Printing Operator ciara saba POC Glucose 170 H 70-106 mg/dl White Blood Count 16.0 H 4.4-10.8 10^3/uL Red Blood Count 5.36 4.5-5.90 10^6/uL Hemoglobin 12.9 L 13.5-17.5 g/dL Hematocrit 42.2 41.0-53.0 % Mean Corpuscular Volume 78.8 L 80.0-100.0 fL Mean Corpuscular Hemoglobin 24.1 L 28.0-32.0 pg Mean Corpuscular Hemoglobin Concent 30.6 L 32.0-36.0 g/dL Red Cell Distribution Width 21.1 H 11.8-14.3 % Platelet Count 186 140-450 10^3/uL Mean Platelet Volume 7.5 6.9-10.8 fL Neutrophils (%) (Auto) 37.0-80.0 % Lymphocytes (%) (Auto) 10.0-50.0 % Monocytes (%) (Auto) 0.0-12.0 % Basophils (%) (Auto) 0.0-2.0 % Neutrophils # (Auto) 1.6-8.6 10 ^3/uL Lymphocytes # (Auto) 0.4-5.4 10 ^3/uL Monocytes # (Auto) 0-1.3 10 ^3/uL Differential Total Cells Counted 100.0 100 Neutrophils % (Manual) 92 H 37.0-80.0 Band Neutrophils % (Manual) 0 Lymphocytes % (Manual) 4 L 10.0-50.0 Monocytes % (Manual) 4 0-12 Eosinophils % (Manual) 0 0-7 Basophils % (Manual) 0 0.0-2.0 Metamyelocytes % (manual) 0 Myelocytes % (Manual) 0 Promyelocytes % (Manual) 0 Blast Cells % (Manual) 0 Reactive Lymphocytes 0 Platelet Estimate Adequate Hypochromasia (manual) Slight Anisocytosis (manual) Slight Microcytosis Slight Test 09/14/24 19:27 09/14/24 18:24 09/14/24 17:18 09/14/24 15:40 Range/Units Blood Gas Specimen Type Arterial Arterial Blood Gas Sample Site Left radial Right radial Blood Gas Patient Temperature 37.0 37.0 Arterial Blood Date Drawn [id number] Arterial Blood pH 7.206 *L 7.197 *L 7.350-7.450 Arterial Blood Partial Pressure CO2 52.8 H 56.4 H 35.0-48.0 mmHg Arterial Blood Partial Pressure O2 79.6 L 69.9 L 83.0-108.0 mmHg Arterial Blood HCO3 20.5 L 21.4 21.0-28.0 mmol/L Arterial Blood Oxygen Saturation 93.6 L 91.0 L 94.0-98.0 % Arterial Blood Base Excess -7.8 L -7.2 L -2.0-3.0 mmol/L Arterial Blood Oxyhemoglobin 91.8 L 89.3 L 94.0-98.0 % Arterial Blood Carboxyhemoglobin 1.6 H 1.5 0.5-1.5 % Arterial Blood Methemoglobin 0.3 0.4 0.0-1.5 % Yohannes Test Modified Yes Blood Gas Total Hemoglobin 13.70 13.70 13.5-17.5 g/dL Blood Gas Modality Mask - bipap Mask - bipap FiO2 % 40.0 40.0 Blood Gas EPAP 5 5 Blood Gas IPAP 16 12 Blood Gas Critical Value Read Back Yes Yes Blood Gas Notified Whom librado Cadet Md. Blood Gas Notified Time [id number] Blood Gas Notified By Rt thelma aguilar Sodium Level 134 L 136-145 mmol/L Potassium Level 5.3 H 3.5-5.1 mmol/L Chloride Level 97 L 98-107 mmol/L Carbon Dioxide Level 22 20-31 mmol/L Anion Gap 15 5-15 Blood Urea Nitrogen 61 H 9-23 mg/dL Creatinine 3.27 H 0.700-1.30 mg/dL Glomerular Filtration Rate Calc 19 >90 mL/min BUN/Creatinine Ratio 18.7 10.0-20.0 Serum Glucose 163 H 74-106 mg/dL Calcium Level 9.8 8.7-10.4 mg/dL POC Glucose 162 H 70-106 mg/dl Blood Gas Set Respiration Rate 14.0 Test 09/14/24 14:42 09/14/24 13:26 09/14/24 12:50 09/14/24 12:46 Range/Units Lactic Acid Level 2.3 *H 2.2 *H 0.4-2.0 mmol/L Blood Gas Specimen Type Arterial Blood Gas Sample Site Right brachial Blood Gas Patient Temperature 37.0 Arterial Blood Date Drawn [id number] Arterial Blood pH 7.159 *L 7.350-7.450 Arterial Blood Partial Pressure CO2 56.5 H 35.0-48.0 mmHg Arterial Blood Partial Pressure O2 75.2 L 83.0-108.0 mmHg Arterial Blood HCO3 19.6 L 21.0-28.0 mmol/L Arterial Blood Oxygen Saturation 92.5 L 94.0-98.0 % Arterial Blood Base Excess -9.4 L -2.0-3.0 mmol/L Arterial Blood Oxyhemoglobin 91.0 L 94.0-98.0 % Arterial Blood Carboxyhemoglobin 1.2 0.5-1.5 % Arterial Blood Methemoglobin 0.4 0.0-1.5 % Yohannes Test Yes Blood Gas Total Hemoglobin 13.20 L 13.5-17.5 g/dL Blood Gas Modality Nasal cannula FiO2 % 44.0 Blood Gas Critical Value Read Back Yes Blood Gas Notified Whom librado Sepulveda Blood Gas Notified Time [id number] Blood Gas Notified By Laser Printing Operator yesica aguilar POC Glucose 182 H 70-106 mg/dl Test 09/14/24 12:13 09/14/24 11:24 09/14/24 10:45 09/14/24 08:07 Range/Units POC Glucose 203 H 152 H 70-106 mg/dl White Blood Count 13.9 H 4.4-10.8 10^3/uL Red Blood Count 5.30 4.5-5.90 10^6/uL Hemoglobin 12.9 L 13.5-17.5 g/dL Hematocrit 42.6 41.0-53.0 % Mean Corpuscular Volume 80.3 80.0-100.0 fL Mean Corpuscular Hemoglobin 24.4 L 28.0-32.0 pg Mean Corpuscular Hemoglobin Concent 30.4 L 32.0-36.0 g/dL Red Cell Distribution Width 21.0 H 11.8-14.3 % Platelet Count 221 140-450 10^3/uL Mean Platelet Volume 7.6 6.9-10.8 fL Neutrophils (%) (Auto) 91.2 H 37.0-80.0 % Lymphocytes (%) (Auto) 2.6 L 10.0-50.0 % Monocytes (%) (Auto) 5.6 0.0-12.0 % Eosinophils (%) (Auto) 0.3 0.0-7.0 % Basophils (%) (Auto) 0.3 0.0-2.0 % Neutrophils # (Auto) 12.7 H 1.6-8.6 10 ^3/uL Lymphocytes # (Auto) 0.4 0.4-5.4 10 ^3/uL Monocytes # (Auto) 0.8 0-1.3 10 ^3/uL Eosinophils # (Auto) 0 0-0.8 10 ^3/uL Basophils # (Auto) 0 0-0.2 10 ^3/uL Nucleated Red Blood Cells 0.1 % Sodium Level 133 L 134 L 136-145 mmol/L Potassium Level 5.5 H 5.7 *H 3.5-5.1 mmol/L Chloride Level 96 L 98 98-107 mmol/L Carbon Dioxide Level 21 21 20-31 mmol/L Anion Gap 16 H 15 5-15 Blood Urea Nitrogen 63 #H 53 #H 9-23 mg/dL Creatinine 3.29 H 3.02 H 0.700-1.30 mg/dL Glomerular Filtration Rate Calc 18 20 >90 mL/min BUN/Creatinine Ratio 19.1 17.5 10.0-20.0 Serum Glucose 151 H 119 H 74-106 mg/dL Calcium Level 9.7 9.7 8.7-10.4 mg/dL Total Bilirubin 1.0 1.1 H 0.2-1.0 mg/dL Aspartate Amino Transferase (AST) 15 19 13-40 U/L Alanine Aminotransferase (ALT) < 9 14 7-40 U/L Alkaline Phosphatase 89 93 46-116 U/L Total Protein 6.7 6.9 5.7-8.2 g/dL Albumin 4.0 4.1 3.2-4.8 g/dL Test 09/14/24 05:34 09/13/24 21:39 09/13/24 17:24 09/13/24 12:38 Range/Units POC Glucose 124 H 112 H 108 H 119 H 70-106 mg/dl Test 09/13/24 06:07 09/13/24 05:46 09/13/24 05:38 09/12/24 21:21 Range/Units Stool Occult Blood Sample #3 Negative Negative White Blood Count 14.0 #H 4.4-10.8 10^3/uL Red Blood Count 5.46 4.5-5.90 10^6/uL Hemoglobin 13.3 L 13.5-17.5 g/dL Hematocrit 45.4 # 41.0-53.0 % Mean Corpuscular Volume 83.2 # 80.0-100.0 fL Mean Corpuscular Hemoglobin 24.4 L 28.0-32.0 pg Mean Corpuscular Hemoglobin Concent 29.3 L 32.0-36.0 g/dL Red Cell Distribution Width 21.6 H 11.8-14.3 % Platelet Count 231 140-450 10^3/uL Mean Platelet Volume 7.4 6.9-10.8 fL Neutrophils (%) (Auto) 85.4 H 37.0-80.0 % Lymphocytes (%) (Auto) 3.1 L 10.0-50.0 % Monocytes (%) (Auto) 11.0 0.0-12.0 % Eosinophils (%) (Auto) 0.2 0.0-7.0 % Basophils (%) (Auto) 0.3 0.0-2.0 % Neutrophils # (Auto) 11.9 H 1.6-8.6 10 ^3/uL Lymphocytes # (Auto) 0.4 0.4-5.4 10 ^3/uL Monocytes # (Auto) 1.5 H 0-1.3 10 ^3/uL Eosinophils # (Auto) 0 0-0.8 10 ^3/uL Basophils # (Auto) 0 0-0.2 10 ^3/uL Nucleated Red Blood Cells 0.1 % Sodium Level 135 L 136-145 mmol/L Potassium Level 5.2 H 3.5-5.1 mmol/L Chloride Level 100 98-107 mmol/L Carbon Dioxide Level 23 20-31 mmol/L Anion Gap 12 5-15 Blood Urea Nitrogen 38 H 9-23 mg/dL Creatinine 2.34 H 0.700-1.30 mg/dL Glomerular Filtration Rate Calc 28 >90 mL/min BUN/Creatinine Ratio 16.2 10.0-20.0 Serum Glucose 138 H 74-106 mg/dL Calcium Level 9.9 8.7-10.4 mg/dL Magnesium Level 2.3 1.6-2.6 mg/dL POC Glucose 136 H 161 H 70-106 mg/dl Test 09/12/24 17:23 09/12/24 12:19 09/12/24 06:36 09/12/24 03:31 Range/Units POC Glucose 163 H 160 H 195 H 70-106 mg/dl White Blood Count 7.9 4.4-10.8 10^3/uL Red Blood Count 5.14 4.5-5.90 10^6/uL Hemoglobin 12.7 L 13.5-17.5 g/dL Hematocrit 40.0 L 41.0-53.0 % Mean Corpuscular Volume 77.8 L 80.0-100.0 fL Mean Corpuscular Hemoglobin 24.6 L 28.0-32.0 pg Mean Corpuscular Hemoglobin Concent 31.7 L 32.0-36.0 g/dL Red Cell Distribution Width 21.0 H 11.8-14.3 % Platelet Count 222 140-450 10^3/uL Mean Platelet Volume 7.2 6.9-10.8 fL Neutrophils (%) (Auto) 37.0-80.0 % Lymphocytes (%) (Auto) 10.0-50.0 % Monocytes (%) (Auto) 0.0-12.0 % Basophils (%) (Auto) 0.0-2.0 % Neutrophils # (Auto) 1.6-8.6 10 ^3/uL Lymphocytes # (Auto) 0.4-5.4 10 ^3/uL Monocytes # (Auto) 0-1.3 10 ^3/uL Differential Total Cells Counted 100.0 100 Neutrophils % (Manual) 98 H 37.0-80.0 Band Neutrophils % (Manual) 0 Lymphocytes % (Manual) 2 L 10.0-50.0 Monocytes % (Manual) 0 0-12 Eosinophils % (Manual) 0 0-7 Basophils % (Manual) 0 0.0-2.0 Metamyelocytes % (manual) 0 Myelocytes % (Manual) 0 Promyelocytes % (Manual) 0 Blast Cells % (Manual) 0 Reactive Lymphocytes 0 Platelet Estimate Adequate Hypochromasia (manual) Slight Anisocytosis (manual) Slight Microcytosis Slight Ovalocytes Few Prothrombin Time 12.2 H 9.3-11.8 sec Prothrombin Time INR 1.17 H 0.9-1.15 Activated Partial Thromboplast Time 31.3 24.5-34.5 SEC Sodium Level 137 136-145 mmol/L Potassium Level 4.7 3.5-5.1 mmol/L Chloride Level 98 98-107 mmol/L Carbon Dioxide Level 29 20-31 mmol/L Anion Gap 10 5-15 Blood Urea Nitrogen 37 H 9-23 mg/dL Creatinine 1.96 H 0.700-1.30 mg/dL Glomerular Filtration Rate Calc 34 >90 mL/min BUN/Creatinine Ratio 18.9 10.0-20.0 Serum Glucose 181 H 74-106 mg/dL Hemoglobin A1c 6.4 H <5.7 % A1C Calcium Level 10.0 8.7-10.4 mg/dL Magnesium Level 2.1 1.6-2.6 mg/dL Iron Level 27 L 65-175 ug/dL Total Iron Binding Capacity 338 250-425 ug/dL Percent Iron Saturation 8.0 L 20-55 % Ferritin 19.8 L 22-322 ng/mL Total Bilirubin 1.3 H 0.2-1.0 mg/dL Aspartate Amino Transferase (AST) 9 L 13-40 U/L Alanine Aminotransferase (ALT) < 9 7-40 U/L Alkaline Phosphatase 105 46-116 U/L Total Protein 7.0 5.7-8.2 g/dL Albumin 4.3 3.2-4.8 g/dL Vitamin B12 Level 607 211-911 pg/mL Vitamin D 25-Hydroxy 67.3 30.0-100 ng/mL Thyroid Stimulating Hormone (TSH) 3.87 0.55-4.78 uIU/mL Test 09/11/24 23:43 09/11/24 23:15 09/11/24 19:06 09/11/24 18:21 Range/Units Influenza Type A Antigen Negative Negative Influenza Type B Antigen Negative Negative SARS-CoV-2 Antigen (Rapid) Negative NEGATIVE Urine Color Light-yellow Yellow Urine Clarity Clear Clear Urine pH 5.0 5.0-9.0 Urine Specific [place] 1.011 1.001-1.035 Urine Protein Negative Negative Urine Ketones Negative Negative Urine Blood Negative Negative /uL Urine Nitrite Negative Negative Urine Bilirubin Negative Negative Urine Urobilinogen Normal Negative mg/dL Urine Leukocyte Esterase 3+ Negative /uL Urine RBC 1 0 - 3 /hpf Urine Microscopic WBC 29 H 0-3 /HPF Urine Squamous Epithelial Cells None seen <5 /hpf Urine Bacteria Many H None Seen /hpf Urine Creatinine 73.92 30.0-125.0 mg/dL Urine Protein/Creatinine Ratio 0.31 Urine Sodium 22 L 40-220 mmol/L Urine Glucose Normal Normal mg/dL Urine Total Protein 23.0 H 1-14 mg/dL Urine Opiates Screen Neg NEGATIVE Urine Fentanyl Screen Neg NEGATIVE Urine Barbiturates Screen Neg NEGATIVE Urine Phencyclidine Screen Neg NEGATIVE Urine Amphetamines Screen Neg NEGATIVE Urine Benzodiazepines Screen Neg NEGATIVE Urine Cocaine Screen Neg NEGATIVE Urine Cannabinoids Screen Neg NEGATIVE Troponin I High Sensitivity 21 23 </=54 ng/L White Blood Count 9.9 4.4-10.8 10^3/uL Red Blood Count 5.07 4.5-5.90 10^6/uL Hemoglobin 12.5 L 13.5-17.5 g/dL Hematocrit 39.8 L 41.0-53.0 % Mean Corpuscular Volume 78.5 L 80.0-100.0 fL Mean Corpuscular Hemoglobin 24.6 L 28.0-32.0 pg Mean Corpuscular Hemoglobin Concent 31.3 L 32.0-36.0 g/dL Red Cell Distribution Width 21.1 H 11.8-14.3 % Platelet Count 220 140-450 10^3/uL Mean Platelet Volume 7.2 6.9-10.8 fL Neutrophils (%) (Auto) 83.2 H 37.0-80.0 % Lymphocytes (%) (Auto) 5.3 L 10.0-50.0 % Monocytes (%) (Auto) 7.8 0.0-12.0 % Eosinophils (%) (Auto) 3.2 0.0-7.0 % Basophils (%) (Auto) 0.5 0.0-2.0 % Neutrophils # (Auto) 8.3 1.6-8.6 10 ^3/uL Lymphocytes # (Auto) 0.5 0.4-5.4 10 ^3/uL Monocytes # (Auto) 0.8 0-1.3 10 ^3/uL Eosinophils # (Auto) 0.3 0-0.8 10 ^3/uL Basophils # (Auto) 0 0-0.2 10 ^3/uL Nucleated Red Blood Cells 0.0 % Sodium Level 136 136-145 mmol/L Potassium Level 4.1 3.5-5.1 mmol/L Chloride Level 99 98-107 mmol/L Carbon Dioxide Level 29 20-31 mmol/L Anion Gap 8 5-15 Blood Urea Nitrogen 36 H 9-23 mg/dL Creatinine 2.03 H 0.700-1.30 mg/dL Glomerular Filtration Rate Calc 33 >90 mL/min BUN/Creatinine Ratio 17.7 10.0-20.0 Serum Glucose 151 H 74-106 mg/dL Lactic Acid Level 1.5 0.4-2.0 mmol/L Calcium Level 9.7 8.7-10.4 mg/dL Total Bilirubin 1.3 H 0.2-1.0 mg/dL Aspartate Amino Transferase (AST) 9 L 13-40 U/L Alanine Aminotransferase (ALT) 11 7-40 U/L Alkaline Phosphatase 104 46-116 U/L B-Type Natriuretic Peptide 311.02 0-100 pg/mL Total Protein 6.8 5.7-8.2 g/dL Albumin 4.1 3.2-4.8 g/dL Lipase 23 12-53 U/L Microbiology Date/Time Source Procedure Growth Status 09/11/24 23:15 Voided Urine Urine Culture - Final Escherichia coli Complete Assessment Admitted for shortness of breath with presumed decompensated heart failure fluid overload Acute kidney injury in the setting of hypotension and poor mobilization of 3rd spaced fluid Cardiorenal syndrome Chronic kidney disease stage 3 with solitary kidney Diastolic heart failure with severe right-sided heart failure Currently receiving chest x-ray Recommend improving hemodynamics we will use dopamine and albumin to improve intravascular circulation prior to starting Lasix drip We will try to maintain a mean arterial pressure greater than 65 Overall goal be to maintain a higher pressure while achieving a slow negative fluid balance. This may require escalation of care possibly needing step-down or ICU for this. Patient has guarded prognosis due to overall condition and high-risk for decompensation. Discussed case carefully with primary medical team Plan discussed with: Patient QUAN MIRAMONTES MD Sep 16, 2024 10:35
[2024-09-16] MEDS: ALBUMIN 25% 100 ML IV SCH (14:00)
[2024-09-16 14:32] LABS: Chloride 100 mmol/L (98-107); Potassium 4.5 mmol/L (3.5-5.1)
[2024-09-16 14:33] LABS: Anion Gap 11 (5-15); Carbon Dioxide 24 mmol/L (20-31)
[2024-09-16 14:34] LABS: Calcium 8.9 mg/dL (8.7-10.4)
[2024-09-16 14:37] LABS: Sodium 135 mmol/L (136-145)
[2024-09-16 14:38] LABS: BUN/Creatinine Ratio 25.1 (10.0-20.0)
[2024-09-16 14:43] LABS: Glucose 211 mg/dL (74-106)
[2024-09-16 14:51] LABS: Blood Urea Nitrogen 95 mg/dL (9-23)
--- NOTE | 2024-09-16 15:46 | DVHPNRES ---
Progress Note Date Seen: Sep 16, 2024 Resident Creating Document: SHELTON KOENIG RESIDENT Medical Necessity Reason Pt with a Central, PICC or Fol: No The following are medically ne: Xavier Catheter Subjective Review of Systems Mr. Andrei Simmons is a 79-year-old male came reports medical history of COPD on 3.5 L oxygen, moderately reduced congestive heart failure, mild CAD, AFib on Eliquis, diabetes mellitus type 2 status post right AKA, sick sinus syndrome status post dual chamber Biotronik pacemaker [address] Ortiz, ANA MARIA on CPAP, left breast cancer status post surgery on tamoxifen 1999 and, left nephrectomy due to left renal mass 2013, colostomy 2018, internal hemorrhoids, diverticulosis who presents to the ER with a chief complaint of shortness of breaths and generalized edema for the past 2 weeks. Patient reports that he has chronic cough which recently worsened 2 weeks back and became productive with yellowish phlegm following which he got short of breath and orthopneic associated with generalized weakness, body aches and fatigue. Also reported nausea but no vomiting or chest pain. He says that he is compliant with his Lasix 20 mg b.i.d.. Patient increased his oxygen from 3.5-4 L and started taking nebulized treatments which did improve him for the time being. He did not increases intake of inhalers which he takes b.i.d.. Initial lab workup revealed neutrophilia 83.2%, MCV 78.4, RDW 21.1, serum creatinine 2.03, BUN 36, HGB A1c 6.4, iron 27, ferritin 19.8, bilirubin 1.3, BNP 311, UDS negative, COVID and flu negative, urinalysis leukocyte esterase 3+, WBC 29, bacteria many. CXR- Pulmonary edema. Mild bibasilar subsegmental atelectasis/consolidation. Ultrasound of the testicle-Large hydrocele left scrotum with a heterogeneous nodule measuring a cm in size fixed to the anterior wall of the Hydrocele. Arterial Doppler of the lower extremity revealed-Multifocal tandem atherosclerotic plaque noted throughout the bilateral lower extremity arteries. Bilateral lower extremity Doppler study negative for DVT. Renal ultrasound revealed-Right renal cortical thinning and increased echotexture suggestive of medical renal disease.Status post left nephrectomy. Patient had a left heart catheterization in [address] TEE which showed mild CAD Last colonoscopy 2022 Last echo December 2023 showed EF 45% He was last admitted at this facility in January 2024 for acute respiratory failure with sepsis secondary to infected sacral ulcer with Pseudomonas and MRSA and Proteus. Past medical surgical history: See above Social history: Patient is nonambulatory. 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 Quit smoking in 1999 does not drink, denies illicit drug use. Lives with and daughter Patient seen and examined at the bedside. Currently saturating 94 on 5 L NC supplementation. Lasix dose 60 mg IV push was given by the ER. Continue 40 mg TID. Smoke: Quit ALCOHOL: none Drugs: None Lives: with Family Patient was seen today for clinical evaluation. Labs and chart reviewed. Patient with worsening confusion, BUN trending up. Repeat CXR 2D revealed- Cardiomegaly with pulmonary vascular congestion. Possible trace left-sided pleural effusion. Worsening renal function, patient was seen by shader and toner. Recommended for dopamine, upgrade with the patient to LORA. Plan is to with the patient on BiPAP for now. If patient gets obtunded plan is to intubated the patient at night. If patient needs to be intubated should be video-assisted, no direct laryngoscope. Nephrology recommended for dopamine use and also albumin to improve intravascular circulation prior to restarting Lasix drip. Patient and her family including and daughter was counseled about hospice care. Patient's family taking time to make their decision Objective vital signs Vital Sign Date Time Temp Pulse Resp B/P (MAP) Pulse Ox O2 Delivery O2 Flow Rate FiO2 09/16/24 11:47 72 14 96 09/16/24 10:00 Oxymizer 5 N/A 09/16/24 05:00 97/39 (58) Total Intake and Output 09/15/24 09/15/24 09/16/24 15:00 23:00 07:00 Intake Total 100 ml 240 ml 150 ml Output Total 150 ml 100 ml Balance 100 ml 90 ml 50 ml medications Current Medications Medications Dose Ordered Sig/Paramjit Route Start Time Stop Time Status Last Admin Dose Admin Nitroglycerin 0.4 mg Q5MINP PRN SL 09/12/24 03:00 Hold Morphine Sulfate 2 mg Q30M PRN IV 09/12/24 03:00 Levalbuterol HCl 1.25 mg Q6HR NEB 09/12/24 06:00 09/16/24 11:35 1.25 MG Diagnostic Test (Pha) 1 strip ACHS 09/12/24 07:00 09/16/24 06:47 1 STRIP Insulin Human Regular ACHS SC 09/12/24 07:00 09/16/24 06:41 4 UNITS Dextrose 50 ml UD PRN IV 09/12/24 03:15 Atorvastatin Calcium 20 mg DAILY PO 09/12/24 10:00 09/16/24 09:04 20 MG Carvedilol 3.125 mg BID PO 09/12/24 10:00 Hold 09/14/24 09:07 3.125 MG Acetaminophen 500 mg Q4HPRN PRN PO 09/12/24 03:30 Acetaminophen/ Hydrocodone Bitart 1 tab Q6HPRN PRN PO 09/12/24 03:30 Morphine Sulfate 1 mg Q4HPRN PRN IV 09/12/24 03:30 Ipratropium [place] 0.5 mg Q6HR NEB 09/12/24 06:00 09/16/24 11:35 0.5 MG Ondansetron HCl 4 mg Q4HPRN PRN IV 09/12/24 04:00 09/12/24 09:46 4 MG Pantoprazole Sodium 40 mg DAILY IV 09/13/24 10:00 09/16/24 09:04 40 MG Ceftriaxone Sodium 50 ml @ 100 mls/hr Q24H IV 09/13/24 01:00 09/16/24 01:26 100 MLS/HR Sildenafil Citrate 20 mg TID@08,14,20 PO 09/14/24 14:56 09/16/24 09:04 20 MG Doxycycline Hyclate 100 ml @ 50 mls/hr Q12H IV 09/15/24 10:45 09/16/24 10:19 50 MLS/HR Enoxaparin Sodium 100 mg Q24H SC 09/16/24 10:00 09/16/24 09:04 100 MG Albumin Human 100 ml @ 100 mls/hr Q4HR IV 09/16/24 10:30 09/16/24 18:59 Furosemide 100 mg/ Sodium Chloride 110 ml @ 5.5 mls/hr Q20H IV 09/16/24 10:30 Dopamine HCl/ Dextrose 250 ml @ 10.444 mls/ hr [id number] IV 09/16/24 10:30 Examination General examination- patient with confusion HEENT- PEERLA, no acute nasal discharge Cardiovascular- S1-S2 audible, rate and rhythm regular, no murmur Respiratory- no wheezing or crackles Gastrointestinal-nontender, bowel sound+. Nondistended Musculoskeletal-no acute joint swelling or tenderness or redness Lower extremity- right above-knee amputation Neurological- cranial nerves intact, no acute dysarthria or dysphagia Psychiatry- AAOX1-2 Skin- no acute rash or purpura laboratory and microbiology Laboratory Tests 09/16/24 14:03 09/16/24 07:01 Test 09/16/24 14:03 Range/Units Serum Glucose 211 H 74-106 mg/dL Microbiology Date/Time Source Procedure Growth Status 09/12/24 03:31 Blood Blood Culture - Preliminary NO GROWTH AFTER 72 HOURS OF INCUBATION. Resulted 09/11/24 23:15 Voided Urine Urine Culture - Final Escherichia coli Complete Problem List/Assessment/Plan Problem List/Assessment/Plan Assessment and plan- Patient with worsening confusion, BUN trending up. Repeat CXR 2D revealed- Cardiomegaly with pulmonary vascular congestion. Possible trace left-sided pleural effusion. Worsening renal function, patient was seen by shader and toner. Recommended for dopamine, upgrade with the patient to LORA. Plan is to with the patient on BiPAP for now. If patient gets obtunded plan is to intubated the patient at night. If patient needs to be intubated should be video-assisted, no direct laryngoscope.Nephrology recommended for dopamine use and also albumin to improve intravascular circulation prior to restarting Lasix drip.Patient and her family including and daughter was counseled about hospice care. Patient's family taking time to make their decision Acute on chronic hypoxic respiratory failure secondary pneumonia/ CHF exacerbation Acute on chronic Moderately reduced congestive heart failure exacerbation-NYHA class 4 Acute pneumonia- Gram-negative pneumonia AFib, rate controlled on Eliquis Mild coronary artery disease Sick sinus syndrome status post dual-chamber Biotronik pacemaker 2016 Obstructive apnea on CPAP Pulmonary hypertension -ECHO 2D ON 09/13/2024 revealed LVEF 40%. Moderate degree of LVH, moderate degree of left ventricular diastolic dysfunction. Remarkably dilated right ventricle and significantly hypokinetic. Has been nuclear systolic pressure 98 mm of mercury. Moderately dilated left atrium. Continue ceftriaxone and doxycycline as prescribed Lovenox 1 mg per kg b.i.d. for AFib Continue nebulized treatments for COPD -urine culture-E coli, sensitive to ceftriaxone -continue sildenafil 20 mg t.i.d. 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 Suspected uremic encephalopathy -status post nephrology consult -avoid dehydration and nephrotoxic drugs # hyperlipidemia # acute complicated cystitis with the endocrine damage --urine culture-E coli, sensitive to ceftriaxone Left-sided hydrocele Continue fluid diuresis Anemia likely iron-deficiency MCV 78 Hyper lactatemia Secondary hypercoagulable state History of left breast cancer status post surgery and tamoxifen therapy 2007 History of laparoscopic left radical nephrectomy 2013 History of colostomy 2018 Lower extremity Doppler negative for DVT Lower extremity arterial -peripheral arterial disease Stage I decubitus sacral ulcer Wound care consulted # peripheral arterial disease -continue current management Tunnel hemorrhoids Diverticulosis Monitor Diet: Cardiac diet Goals of care, Code status ; discussed with >15 minutes PUD prophylaxis: Pantoprazole DVT prophylaxis: Lovenox Plan discussed with Dr. Vallejo , nursing staff, Total time spent on patient evaluation, chart review, assessment and plan, discussion discussion >35 minutes Plan discussed with: Patient, Spouse (RN), Daughter, Other (RN) My Orders My Orders Orders - SHELTON KOENIG Procedure Category Date Status Time Communication Order ORDERS 09/15/24 Transmitted 17:37 *Dr. [facility] CONS 09/16/24 Transmitted -[place] 06:07 Dietary Evaluation Review Comments: 1) Matthieu 1 pk daily (ordered per ONS protocol) 2) CCHO 75gm + cardiac 3) Refer Computer Forensic Specialist on DC 4) Continue current plan of care Expected Outcomes/Goals: To meet >75% estimated needs Fu 3-5 days Date of Service: Sep 16, 2024 Billing Provider: YOLANDA ROBERTS MD Common Visit Codes: 22576-XRINAPIK CARE 30-74 MIN SHELTON KOENIG Sep 16, 2024 15:46 YOLANDA ROBERTS MD Sep 17, 2024 00:36
[2024-09-16] MEDS: NOREPINEPHRINE 8 MG/250ML KIT 250 ML IV ONE (17:09)
[2024-09-16] MEDS: NOREPINEPHRINE 8 MG/250ML KIT 250 ML IV SCH (17:10)
[2024-09-16] MEDS: DOPamine 1600MCG/ML D5W 250 ML IV SCH (17:23)
[2024-09-16] MEDS: FUROSEMIDE INJECTION 100 MG in SODIUM CHL 0.9% 100 ML IV SCH ×2 (18:39→20:30)
[2024-09-16 20:03] LABS: Base Excess -6.7 mmol/L (-2.0-3.0)
--- NOTE | 2024-09-16 20:29 | DVH ---
CHEST RADIOGRAPH Indication: POST IJ CENTRAL LINE PLACEMENT Technique: Single frontal view of the chest was obtained COMPARISON: XY CHEST PORTABLE on DOS: 09/16/24 FINDINGS / IMPRESSION: Lines and Tubes: Interval insertion of right IJ central venous catheter the tip of which projects ove r the SVC Lungs / Pleura: Increased pulmonary vascularity and perihilar opacities consistent with pulmonary kamaljit ma. Bibasilar atelectasis/consolidation greater on the left side. Possible small left pleural effusio n. No pneumothorax. No significant change compared to the prior chest x-ray from earlier the same day . Cardiomediastinal contours: Unremarkable
[2024-09-16 22:10] LABS: Hemoglobin 13.1 g/dL (13.5-17.5)
[2024-09-16 22:11] LABS: Hematocrit 43.2 % (41.0-53.0)
[2024-09-16 22:25] LABS: White Blood Cell 16.6 10^3/uL (4.4-10.8)
[2024-09-16 22:26] LABS: Basophils % (auto) 0.1 % (0.0-2.0); Eosinophils % (auto) 0.5 % (0.0-7.0); Lymphocytes # (auto) 0.6 10 ^3/uL (0.4-5.4); Lymphocytes % (auto) 3.7 % (10.0-50.0); Monocytes # (auto) 1.4 10 ^3/uL (0-1.3); Monocytes % (auto) 8.4 % (0.0-12.0); Neutrophils # (auto) 14.5 10 ^3/uL (1.6-8.6); Neutrophils % (auto) 87.3 % (37.0-80.0); Nucleated Red Blood Cells % 0.1 %
[2024-09-16 22:27] LABS: Basophils # (auto) 0 10 ^3/uL (0-0.2); Eosinophils # (auto) 0.1 10 ^3/uL (0-0.8); Hematocrit 43.2 % (41.0-53.0); Hemoglobin 13.1 g/dL (13.5-17.5); Mean Corpuscular Hemoglobin 23.7 pg (28.0-32.0); Mean Corpuscular Hgb Conc. 30.4 g/dL (32.0-36.0); Mean Corpuscular Volume 77.9 fL (80.0-100.0); Platelet Count (auto) 229 10^3/uL (140-450); Red Blood Cells 5.55 10^6/uL (4.5-5.90); Red Cell Distribution Width 21.2 % (11.8-14.3)
--- NOTE | 2024-09-16 23:13 | DVHPN2 ---
Progress Note - Dictate Date Seen: Sep 16, 2024 Medical Necessity Reason Pt with a Central, PICC or Fol: No The following are medically ne: Xavier Catheter Subjective Patient was seen and evaluated in follow up in the ICU. Patient was upgraded to the ICU for closer observation. Patient started on vasopressors. Patient is on Bi-PAP, 100% FiO2. WBC 16.6, BUN 95, Family Sociologist 3.78. Chest x-ray shows increased pulmonary vascularity and perihilar opacities consistent with pulmonary edema. Bibasilar atelectasis/consolidation greater on the left side. Possible small left pleural effusion. No pneumothorax. vital signs Vital Sign Date Time Temp Pulse Resp B/P (MAP) Pulse Ox O2 Delivery O2 Flow Rate FiO2 09/16/24 20:15 94 25 118/24 (55) 91 09/16/24 19:57 Facial BiPAP Mask 100 09/16/24 16:15 97.4 97.4 09/16/24 10:00 5 Total Intake and Output 09/15/24 09/15/24 09/16/24 15:00 23:00 07:00 Intake Total 100 ml 240 ml 150 ml Output Total 150 ml 100 ml Balance 100 ml 90 ml 50 ml medications Current Medications Medications Dose Ordered Sig/Paramjit Route Start Time Stop Time Status Last Admin Dose Admin Nitroglycerin 0.4 mg Q5MINP PRN SL 09/12/24 03:00 Hold Morphine Sulfate 2 mg Q30M PRN IV 09/12/24 03:00 Levalbuterol HCl 1.25 mg Q6HR NEB 09/12/24 06:00 09/16/24 19:57 1.25 MG Diagnostic Test (Pha) 1 strip ACHS 09/12/24 07:00 09/16/24 21:12 1 STRIP Insulin Human Regular ACHS SC 09/12/24 07:00 09/16/24 21:13 4 UNITS Dextrose 50 ml UD PRN IV 09/12/24 03:15 Atorvastatin Calcium 20 mg DAILY PO 09/12/24 10:00 09/16/24 09:04 20 MG Acetaminophen 500 mg Q4HPRN PRN PO 09/12/24 03:30 Acetaminophen/ Hydrocodone Bitart 1 tab Q6HPRN PRN PO 09/12/24 03:30 Morphine Sulfate 1 mg Q4HPRN PRN IV 09/12/24 03:30 Ipratropium [place] 0.5 mg Q6HR NEB 09/12/24 06:00 09/16/24 19:56 0.5 MG Ondansetron HCl 4 mg Q4HPRN PRN IV 09/12/24 04:00 09/12/24 09:46 4 MG Pantoprazole Sodium 40 mg DAILY IV 09/13/24 10:00 09/16/24 09:04 40 MG Ceftriaxone Sodium 50 ml @ 100 mls/hr Q24H IV 09/13/24 01:00 09/16/24 01:26 100 MLS/HR Sildenafil Citrate 20 mg TID@08,14,20 PO 09/14/24 14:56 09/16/24 09:04 20 MG Doxycycline Hyclate 100 ml @ 50 mls/hr Q12H IV 09/15/24 10:45 09/16/24 10:19 50 MLS/HR Enoxaparin Sodium 100 mg Q24H SC 09/16/24 10:00 09/16/24 09:04 100 MG Dopamine HCl/ Dextrose 250 ml @ 10.444 mls/ hr [id number] IV 09/16/24 10:30 09/16/24 17:23 10.444 MLS/HR Norepinephrine Bitartrate 250 ml @ 3.75 mls/hr Q24H IV 09/16/24 17:15 09/16/24 17:10 3.75 MLS/HR Furosemide 100 mg/ Sodium Chloride 110 ml @ 11 mls/hr Q10H IV 09/16/24 20:30 objective GENERAL: Alert and oriented x 3. No acute distress. EYES: PERRL, EOMI. Anicteric. HENT: Moist mucous membranes. LUNGS: breath sounds. CARDIOVASCULAR: Regular rate and rhythm. ABDOMEN: Soft, nontender and nondistended. Patient has a functioning colostomy bag noted to the right-sided abdomen. EXTREMITIES: No edema. Right AKA, atrophic left leg. NEUROLOGIC: No focal neurological deficits. SKIN: Warm, dry. laboratory and microbiology Laboratory Tests 09/16/24 14:03 09/16/24 07:01 Test 09/16/24 14:03 Range/Units Serum Glucose 211 H 74-106 mg/dL Problem List Acute on chronic hypoxic respiratory failure secondary to probable CHF exacerbation. Acute on chronic Moderately reduced congestive heart failure exacerbation-NYHA class 4. Pneumonia. AFib, rate controlled on Eliquis. COPD on 3 L home oxygen. Mild coronary artery disease. Sick sinus syndrome status post dual-chamber Biotronik pacemaker 2015. Obstructive apnea on CPAP. Acute cystitis. Diabetes mellitus type 2-A1c 6.4. ? CASS on CKD. Left-sided hydrocele. Anemia likely iron-deficiency. Secondary hypercoagulable state. History of left breast cancer status post surgery and tamoxifen therapy 2007. History of laparoscopic left radical nephrectomy 2013. History of colostomy 2019. Stage I decubitus sacral ulcer. Tunnel hemorrhoids. Diverticulosis. Assessment/Plan Continued all current supportive medical care. Morphine and [place] for pain management. Lipitor. IV antibiotics as ordered. Dopamine drip. DVT prophylactics. Diuretics with Lasix. GI prophylactics. Vasopressors for hemodynamic support. Additional plan as per the hospital course. Critical care time of 45 minutes provided to include time spent evaluation of patient at bedside, when appropriate patient/family education for diagnosis, treatment plan, review of pertinent medical information and discussion of care with specialty providers and PCP. Dietary Evaluation Review Comments: 1) Matthieu 1 pk daily (ordered per ONS protocol) 2) CCHO 75gm + cardiac 3) Refer Heavy Duty Press Operator on DC 4) Continue current plan of care Expected Outcomes/Goals: To meet >75% estimated needs Fu 3-5 days Plan discussed with: Patient, Spouse EVERTON SHELDON MD Sep 16, 2024 21:18
[2024-09-16 23:16] LABS: INR 1.15 (0.9-1.15); Partial Thromboplastin Time 34.6 SEC (24.5-34.5)
[2024-09-17] VITALS (111 sets, daily range): BP systolic 57–143; BP diastolic 28–64; PULSE 87–132; RESP 16–38; TEMP 97.9–100.1; O2SAT 86–100
[2024-09-17] MEDS: MORPHINE SULFATE INJ 2 MG/ml SYRG IV PRN (00:08)
[2024-09-17] MEDS ORDERED: ALBUMIN 25% 100 ML IV ONE (03:00)
[2024-09-17] MEDS: ALBUMIN 25% 100 ML IV SCH (03:26)
--- NOTE | 2024-09-17 04:14 | DVH ---
INDICATION: CENTRAL LINE REMOVED BY PATIENT TECHNIQUE: Single frontal view of the chest was obtained COMPARISON: XY CHEST PORTABLE on DOS: 09/16/24, XY CHEST XRAY 1 VIEW on DOS: 09/16/24, XY CHEST PORTABL E on DOS: 09/16/24, XY CHEST PORTABLE on DOS: 09/14/24, XY CHEST XRAY 1 VIEW on DOS: 09/11/24 FINDINGS: Left pacemaker.. Cardiomegaly. There is no evidence of pleural disease. The lungs are clear. The bony structures of the chest are intact without fracture. IMPRESSION: Cardiomegaly with worsening CHF.
[2024-09-17 04:23] LABS: Basophils # (auto) 0 10 ^3/uL (0-0.2); Basophils % (auto) 0.1 % (0.0-2.0); Eosinophils # (auto) 0.1 10 ^3/uL (0-0.8); Eosinophils % (auto) 0.5 % (0.0-7.0); Hematocrit 43.4 % (41.0-53.0); Hemoglobin 13.7 g/dL (13.5-17.5); Lymphocytes # (auto) 0.5 10 ^3/uL (0.4-5.4); Lymphocytes % (auto) 2.9 % (10.0-50.0); Mean Corpuscular Hemoglobin 24.4 pg (28.0-32.0); Mean Corpuscular Hgb Conc. 31.6 g/dL (32.0-36.0); Mean Corpuscular Volume 77.2 fL (80.0-100.0); Monocytes # (auto) 1.5 10 ^3/uL (0-1.3); Monocytes % (auto) 8.3 % (0.0-12.0); Neutrophils % (auto) 88.2 % (37.0-80.0); Nucleated Red Blood Cells % 0.2 %; Platelet Count (auto) 237 10^3/uL (140-450); Red Blood Cells 5.62 10^6/uL (4.5-5.90); Red Cell Distribution Width 21.3 % (11.8-14.3); White Blood Cell 18.1 10^3/uL (4.4-10.8)
[2024-09-17 04:41] LABS: Alanine Aminotransferase 15 U/L (7-40); Albumin 4.2 g/dL (3.2-4.8); Alkaline Phosphatase 79 U/L (46-116); Anion Gap 14 (5-15); Aspartate Aminotransferase 18 U/L (13-40); BUN/Creatinine Ratio 24.7 (10.0-20.0); Calcium 9.2 mg/dL (8.7-10.4); Carbon Dioxide 22 mmol/L (20-31); Chloride 99 mmol/L (98-107); Magnesium 2.2 mg/dL (1.6-2.6); Potassium 4.4 mmol/L (3.5-5.1); Total Protein 6.8 g/dL (5.7-8.2)
[2024-09-17 04:42] LABS: Bilirubin, Total 1.1 mg/dL (0.2-1.0); Glucose 221 mg/dL (74-106); Sodium 135 mmol/L (136-145)
[2024-09-17 04:43] LABS: Blood Urea Nitrogen 93 mg/dL (9-23)
[2024-09-17 04:44] LABS: Base Excess -10.8 mmol/L (-2.0-3.0)
[2024-09-17] MEDS: ETOMIDATE (2MG/ML) 20ML VIAL IV ONE (04:50)
[2024-09-17] MEDS: ROCURONIUM 10MG/ML 10ML VIAL IV ONE (04:51)
[2024-09-17] MEDS: MIDAZOLAM DRIP 50 mg/50mL 50 ML IV ONE (04:59)
--- NOTE | 2024-09-17 05:12 | ED.PDOC ---
Was a procedure done? Was a procedure done?: Yes Sedation Sedation?: No Central Line Recorder of insertion practice: Returned Telephone Equipment Appraiser Occupation of truck unloader: Other (Resident Physician) Indication: Hypotension Room prepared for procedure: Yes Returned Telephone Equipment Appraiser performed hand hygien: Yes Maximal sterile barrier precau: Mask/Eye shield, Sterile gown, Cap, Sterlie gloves, Large sterlie drape Skin Preparation: Chlorhexidine gluconate Skin preparation completely dr: Yes Insertion site: Left, Internal jugular Central line catheter type: [id number] dialysis Number of lumens: 3 Central line exchanged over a: Yes Antiseptic ointment applied to: Yes Post Assessment: Chest X-Ray, Proper placement, No Pneumothorax Informed consent obtained: Yes Risks/benefits/alt described: Yes Intubation Indication: Respiratory Insufficiency, Altered Mental Status, Airway Protection Prep: Preoxygenation Pretreated with: Other (Etomidate) Medicated with: Other (Rocuronium) Intubation Approach: Orotracheal Intubation size: cm (8) Informed consent obtained: Yes Risks/benefits/alt described: Yes Notes Called emergently to the ICU to assist residents with altered patient with wo rsening hypoxia. Assisted Dr. Gandara and and TAMRA Lowry MD Sep 17, 2024 05:12
[2024-09-17] MEDS: MIDAZOLAM DRIP 50 mg/50mL 50 ML IV SCH (05:34)
[2024-09-17] MEDS ORDERED: ALBUMIN 25% 100 ML IV SCH (06:00)
--- NOTE | 2024-09-17 06:46 | DVH ---
EXAM: XR Chest, 1 View CLINICAL INDICATION: PATIENT INTUBATED TECHNIQUE: Frontal view of the chest. COMPARISON: XY CHEST PORTABLE on DOS: 09/17/24, XY CHEST PORTABLE on DOS: 09/16/24, XY CHEST XRAY 1 V IEW on DOS: 09/16/24, XY CHEST PORTABLE on DOS: 09/16/24, XY CHEST PORTABLE on DOS: 09/14/24 FINDINGS: LUNGS AND PLEURAL SPACES: See below. HEART: Cardiomegaly with pulmonary congestion and edema. Superimposed pneumonia cannot be excluded. MEDIASTINUM: Unremarkable. Normal mediastinal contour. BONES/JOINTS: Unremarkable. No acute fracture. TUBES, LINES AND DEVICES: ETT with the distal tip 1.1 cm from the cristopher. Left-sided cardiac pacem beverly. OTHER FINDINGS: . . . IMPRESSION: 1. ETT with the distal tip 1.1 cm from the cristopher. 2. Cardiomegaly with pulmonary congestion and edema. Superimposed pneumonia cannot be excluded.
[2024-09-17 07:03] LABS: Base Excess -7.2 mmol/L (-2.0-3.0)
[2024-09-17] MEDS ORDERED: VANCOMYCIN PER PHARMACY 0 MG IV SCH (10:00)
[2024-09-17] MEDS ORDERED: DEXTROSE (50%) 50ML SYRG IV PRN ×2 (11:00→15:30)
[2024-09-17] MEDS: InsuLIN REG 1unit/0.01ml Soln (100units/ml) SC SCH ×2 (12:11→17:35)
[2024-09-17] MEDS: fentaNYL Drip 2500mCg/250mlNS 250 ML IV SCH (12:12)
[2024-09-17] MEDS: ACCU-CHEK COMFORT CURVE STRIP VI SCH ×2 (12:24→17:37)
[2024-09-17] MEDS: CEFEPIME 1GM/ 50ML 50 ML IV SCH (12:29)
--- NOTE | 2024-09-17 17:13 | MEDREC ---
[facility] ASP Intervention Section I [facility] Intervention: Review courses of therapy (NOSE SHOWS MRSA POSITIVE - CONSIDER ADD BACTROBAN OINTMENT APPLY TO NARES BID X5 DAYS) LISET Barrios Sep 17, 2024 17:13
--- NOTE | 2024-09-17 17:32 | DVHPN2 ---
Progress Note Date Seen: Sep 17, 2024 Medical Necessity Reason Pt with a Central, PICC or Fol: No The following are medically ne: Xavier Catheter Subjective Review of Systems: Deferred Objective vital signs Vital Sign Date Time Temp Pulse Resp B/P (MAP) Pulse Ox O2 Delivery O2 Flow Rate FiO2 09/17/24 16:43 107/53 09/17/24 16:08 99 20 95 50 09/17/24 16:00 100.1 100.1 09/17/24 08:00 Mechanical Ventilator+ 09/16/24 10:00 5 Total Intake and Output 09/16/24 09/16/24 09/17/24 15:00 23:00 07:00 Intake Total 100 ml 180.720 ml 630.996 ml Output Total 600 ml 420 ml Balance 100 ml -419.280 ml 210.996 ml medications Current Medications Medications Dose Ordered Sig/Paramjit Route Start Time Stop Time Status Last Admin Dose Admin Levalbuterol HCl 1.25 mg Q6HR NEB 09/12/24 06:00 09/17/24 12:26 1.25 MG Ipratropium [place] 0.5 mg Q6HR NEB 09/12/24 06:00 09/17/24 12:26 0.5 MG Ondansetron HCl 4 mg Q4HPRN PRN IV 09/12/24 04:00 09/12/24 09:46 4 MG Pantoprazole Sodium 40 mg DAILY IV 09/13/24 10:00 09/17/24 10:52 40 MG Dopamine HCl/ Dextrose 250 ml @ 10.444 mls/ hr [id number] IV 09/16/24 10:30 09/17/24 07:57 10.444 MLS/HR Norepinephrine Bitartrate 250 ml @ 3.75 mls/hr Q24H IV 09/16/24 17:15 09/17/24 16:43 26.25 MLS/HR Furosemide 100 mg/ Sodium Chloride 110 ml @ 11 mls/hr Q10H IV 09/16/24 20:30 09/17/24 13:55 11 MLS/HR Midazolam HCl 50 ml @ 1 mls/hr Q24H IV 09/17/24 05:30 09/17/24 10:51 4 MLS/HR Vancomycin HCl 0 ml @ 0 mls/hr UD IV 09/17/24 10:00 Cefepime HCl 50 ml @ 12.5 mls/hr DAILY IV 09/17/24 10:00 09/17/24 12:29 12.5 MLS/HR Enteral Nutritional Formula 1,000 ml 30ML/HR GT 09/17/24 11:00 Dextrose 50 ml UD PRN IV 09/17/24 11:00 Cancel Fentanyl Citrate 250 ml @ 2.5 mls/hr Q24H IV 09/17/24 11:30 09/17/24 12:12 2.5 MLS/HR Diagnostic Test (Pha) 1 strip Q6HR 09/17/24 18:00 Insulin Human Regular Q6HR SC 09/17/24 18:00 Dextrose 50 ml UD PRN IV 09/17/24 15:30 Examination: GENERAL:Abnormal, LUNGS:Abnormal, CVS:Abnormal laboratory and microbiology Laboratory Tests 09/17/24 03:00 Test 09/17/24 03:00 Range/Units Serum Glucose 221 H 74-106 mg/dL Microbiology Date/Time Source Procedure Growth Status 09/17/24 05:11 Sputum Gram Stain - Final Resulted 09/17/24 05:11 Sputum Respiratory Culture Pending Resulted 09/16/24 19:55 Nose MRSA Screen - Final Methicillin Resistant S.aureus Complete 09/12/24 03:31 Blood Blood Culture - Final NO GROWTH AFTER 5 DAYS OF INCUBATION. Complete 09/11/24 23:15 Voided Urine Urine Culture - Final Escherichia coli Complete Problem List/Assessment/Plan Problem List/Assessment/Plan Admitted for shortness of breath with presumed decompensated heart failure fluid overload Acute kidney injury in the setting of hypotension and poor mobilization of 3rd spaced fluid Cardiorenal syndrome Chronic kidney disease stage 3 with solitary kidney Diastolic heart failure with severe right-sided heart failure Acute respiratory failure Patient currently on diuretic drip Pressors to maintain mean arterial pressure greater than 65 Clinically patient was declining not responding to diuretic therapy recommend placement of dialysis catheter and start of hemodialysis for fluid removal. Patient given significant heart disease and multiple comorbidities is high-risk for not tolerating procedure. Strict Is&Os Poor prognosis Critical care time spent 35 minutes Plan discussed with: Other My Orders My Orders Orders - QUAN MIRAMONTES MD Procedure Category Date Status Time Sodium Chl 0.9% PHA 09/16/24 In Process (So... W/Furosemide 20:30 Dietary Evaluation Review Comments: 1) Matthieu 1 pk daily (ordered per ONS protocol) 2) CCHO 75gm + cardiac 3) Refer Road Oiling Truck Driver on DC 4) Continue current plan of care Expected Outcomes/Goals: To meet >75% estimated needs Fu 3-5 days QUAN MIRAMONTES MD Sep 17, 2024 17:32
--- NOTE | 2024-09-17 18:25 | DVHPNRES ---
Progress Note Date Seen: Sep 17, 2024 Resident Creating Document: SEBAS ALLAN RESIDENT Medical Necessity Reason Pt with a Central, PICC or Fol: Yes The following are medically ne: Central Line, Xavier Catheter Subjective Review of Systems Patient was a 79-year-old male with a past medical history as described below presented to the hospital with a chief complaint of shortness of breath and edema for 2 weeks. Patient reported that he was apparently doing well until 2 weeks ago on 3.5 L home oxygen when he started to have worsening shortness of breath, orthopnea associated with cough with yellowish phlegm and also complained of edema, associated body aches, fatigue. Past medical history: COPD on 3.5 L oxygen per minute, heart failure with reduced ejection fraction, coronary artery disease, atrial fibrillation on Eliquis, sick sinus syndrome tongue, insulin dependent type 2 diabetes mellitus, obstructive sleep apnea on CPAP, peripheral artery disease Past surgical history: Left radical nephrectomy, dual-chamber pacemaker, right above-knee amputation Social history: Patient is nonambulatory, quit smoking in year 1999 and denies any alcohol or other drug use Home medications: Eliquis 2.5 mg b.i.d., carvedilol 3.125 mg b.i.d., cilostazol 50 mg b.i.d., Lasix 20 mg daily Review of systems Patient seen and examined at the bedside Patient was shifted yesterday from the floor to the ICU after he was started on vasopressor support for low blood pressure. Overnight patient had worsening respiratory status with ABG showing respiratory acidosis with increased CO2 and altered mental status following which the patient was intubated and put on mechanical ventilation. On my exam in the morning patient was edematous with a pitting edema in his upper and lower extremities. Patient had low urine output with blood and clots in the Xavier's catheter which cleared up during the day. Patient also had some bleeding in with the suction bag from the mouth which cleared up as well. Patient continues to be on Lasix drip and vasopressor support with norepinephrine. Objective vital signs Vital Sign Date Time Temp Pulse Resp B/P (MAP) Pulse Ox O2 Delivery O2 Flow Rate FiO2 09/17/24 18:15 113 20 102/51 (68) 96 09/17/24 16:08 50 09/17/24 16:00 100.1 100.1 09/17/24 10:00 Mechanical Ventilator 09/16/24 10:00 5 Total Intake and Output 09/16/24 09/16/24 09/17/24 15:00 23:00 07:00 Intake Total 100 ml 180.720 ml 630.996 ml Output Total 600 ml 420 ml Balance 100 ml -419.280 ml 210.996 ml medications Current Medications Medications Dose Ordered Sig/Paramjit Route Start Time Stop Time Status Last Admin Dose Admin Levalbuterol HCl 1.25 mg Q6HR NEB 09/12/24 06:00 09/17/24 12:26 1.25 MG Ipratropium [place] 0.5 mg Q6HR NEB 09/12/24 06:00 09/17/24 12:26 0.5 MG Ondansetron HCl 4 mg Q4HPRN PRN IV 09/12/24 04:00 09/12/24 09:46 4 MG Pantoprazole Sodium 40 mg DAILY IV 09/13/24 10:00 09/17/24 10:52 40 MG Dopamine HCl/ Dextrose 250 ml @ 10.444 mls/ hr [id number] IV 09/16/24 10:30 09/17/24 07:57 10.444 MLS/HR Norepinephrine Bitartrate 250 ml @ 3.75 mls/hr Q24H IV 09/16/24 17:15 09/17/24 16:43 26.25 MLS/HR Furosemide 100 mg/ Sodium Chloride 110 ml @ 11 mls/hr Q10H IV 09/16/24 20:30 09/17/24 13:55 11 MLS/HR Midazolam HCl 50 ml @ 1 mls/hr Q24H IV 09/17/24 05:30 09/17/24 10:51 4 MLS/HR Vancomycin HCl 0 ml @ 0 mls/hr UD IV 09/17/24 10:00 Cefepime HCl 50 ml @ 12.5 mls/hr DAILY IV 09/17/24 10:00 09/17/24 12:29 12.5 MLS/HR Enteral Nutritional Formula 1,000 ml 30ML/HR GT 09/17/24 11:00 Dextrose 50 ml UD PRN IV 09/17/24 11:00 Cancel Fentanyl Citrate 250 ml @ 2.5 mls/hr Q24H IV 09/17/24 11:30 09/17/24 12:12 2.5 MLS/HR Diagnostic Test (Pha) 1 strip Q6HR 09/17/24 18:00 09/17/24 17:37 1 STRIP Insulin Human Regular Q6HR SC 09/17/24 18:00 09/17/24 17:35 3 UNITS Dextrose 50 ml UD PRN IV 09/17/24 15:30 Examination Constitutional: Patient is on mechanical ventilation and sedated with a RASS -4 Gen - no pallor, no icterus, no cyanosis, no clubbing Skin - Patients skin is warm and dry.. Skin of the left lower extremity below the knee is mottled with poor blood supply and cold limb HEENT - normocephalic, atraumatic, moist mucous membranes. Neck - full ROM, no LAD, JVD could not be assessed Pulmonary - B/L diminished breath sounds, no wheezing, no stridor. cardiovascular - variable S1,S2 heard, no added sounds no murmurs heard. GI - soft abdomen. no hepatospleenomegaly. Bowel sounds normoactive Neurological - patient was sedated and on mechanical ventilation, gag reflex present, pupils anisocoric but sluggishly reactive laboratory and microbiology Laboratory Tests 09/17/24 03:00 Test 09/17/24 03:00 Range/Units Serum Glucose 221 H 74-106 mg/dL Microbiology Date/Time Source Procedure Growth Status 09/17/24 05:11 Sputum Gram Stain - Final Resulted 09/17/24 05:11 Sputum Respiratory Culture Pending Resulted 09/16/24 19:55 Nose MRSA Screen - Final Methicillin Resistant S.aureus Complete 09/12/24 03:31 Blood Blood Culture - Final NO GROWTH AFTER 5 DAYS OF INCUBATION. Complete 09/11/24 23:15 Voided Urine Urine Culture - Final Escherichia coli Complete Problem List/Assessment/Plan Problem List/Assessment/Plan Neurology Acute metabolic encephalopathy likely due to hypercapnia - on mechanical ventilation - RASS -4 Respiratory Acute on chronic hypercarbic respiratory failure COPD ?Pneumonia likely due to Gram +/-bacteria Severe pulmonary hypertension Obstructive sleep apnea - on mechanical ventilation - DuoNebs q.6 hours - IV antibiotics vancomycin and cefepime Cardiovascular Shock likely due to sepsis, cultures pending Acute on chronic heart failure with a reduced ejection fraction NYHA class 4 Paroxysmal atrial fibrillation , sick sinus syndrome with a dual-chamber pacemaker Coronary artery disease (coronary angiogram in 2020) Severe pulmonary hypertension with RV hypokinesis Peripheral artery disease with right above-knee amputation - on vasopressors with norepinephrine - on Lasix drip at 10 milligram/hour but urine output is not adequate and patient will likely need dialysis - anticoagulation held as because of hematuria Nephrology CASS 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 Code status: Full code time 21 minutes Critical care time spent excluding procedures: 83 minutes Plan discussed with Plan discussed with: Other (daughter, RN (Ministerio)) My Orders My Orders Orders - SEBAS ALLAN RESIDENT Procedure Category Date Status Time Blood Culture ADDISON 09/17/24 In Process 07:49 Respiratory Culture ADDISON 09/17/24 Uncollected W/ Gs 07:49 Urine Bacterial ADDISON 09/17/24 Uncollected Culture 07:49 Mrsa Screen ADDISON 09/17/24 Uncollected 07:49 Vancomycin Per [facility] 09/17/24 In Process Pharmacy 10:00 Cefepime 1gm/ 50ml [facility] 09/17/24 In Process (Maxipime 1gm/50ml) 10:00 Nutritional [facility] 09/17/24 In Process Supplements (Glucerna 11:00 Vancomycin 1.5gm/300ml [facility] 09/17/24 In Process 17:15 Vancomycin,Random LAB 09/18/24 Verified 05:00 Vancomycin Per FRANCES 09/17/24 In Process Pharmacy Protoc 17:14 Creatinine LAB 09/18/24 Verified 05:00 Dietary Evaluation Review Comments: 1) Matthieu 1 pk daily (ordered per ONS protocol) 2) CCHO 75gm + cardiac 3) Refer Artillery Maintenance Supervisor on DC 4) Continue current plan of care Expected Outcomes/Goals: To meet >75% estimated needs Fu 3-5 days Date of Service: Sep 17, 2024 Billing Provider: ENMA MORENO MD Common Visit Codes: [id number] CARE 30-74 MIN, [id number] CARE-EACH +30MIN SEBAS ALLAN RESIDENT Sep 17, 2024 18:25 ENMA MORENO MD Sep 18, 2024 12:17
[2024-09-17] MEDS: VANCOMYCIN 1.5GM/300ML 300 ML IV ONE (20:14)
--- NOTE | 2024-09-17 22:34 | DVHPN2 ---
Progress Note - Dictate Date Seen: Sep 17, 2024 Medical Necessity Reason Pt with a Central, PICC or Fol: No The following are medically ne: Xavier Catheter Subjective Patient was seen and evaluated in follow up in the ICU. Lst night patietn was upgrade to the ICU for hypotension and started on pressors. Overnight patient had worsening respiratory status with ABG showing respiratory acidosis with increased CO2 and altered mental status following which the patient was intubated for airway protection. Patient had low urine output with blood and clots in the Xavier's catheter which cleared up during the day. Patient also had some bleeding in with the suction bag from the mouth which cleared up as well. WBC 18.1, BUN 93, ELECTRONIC VIDEO GAMES SERVICER 3.77. Chest x-ray showed cardiomegaly with pulmonary congestion and edema. vital signs Vital Sign Date Time Temp Pulse Resp B/P (MAP) Pulse Ox O2 Delivery O2 Flow Rate FiO2 09/17/24 12:26 103 20 97/41 (59) 97 65 09/17/24 06:00 Mechanical Ventilator+ 09/17/24 00:00 98.0 98.0 09/16/24 10:00 5 Total Intake and Output 09/16/24 09/16/24 09/17/24 15:00 23:00 07:00 Intake Total 100 ml 180.720 ml 583.052 ml Output Total 600 ml 420 ml Balance 100 ml -419.280 ml 163.052 ml medications Current Medications Medications Dose Ordered Sig/Paramjit Route Start Time Stop Time Status Last Admin Dose Admin Levalbuterol HCl 1.25 mg Q6HR NEB 09/12/24 06:00 09/17/24 12:26 1.25 MG Ipratropium [place] 0.5 mg Q6HR NEB 09/12/24 06:00 09/17/24 12:26 0.5 MG Ondansetron HCl 4 mg Q4HPRN PRN IV 09/12/24 04:00 09/12/24 09:46 4 MG Pantoprazole Sodium 40 mg DAILY IV 09/13/24 10:00 09/17/24 10:52 40 MG Dopamine HCl/ Dextrose 250 ml @ 10.444 mls/ hr [id number] IV 09/16/24 10:30 09/17/24 07:57 10.444 MLS/HR Norepinephrine Bitartrate 250 ml @ 3.75 mls/hr Q24H IV 09/16/24 17:15 09/17/24 05:40 22.5 MLS/HR Furosemide 100 mg/ Sodium Chloride 110 ml @ 11 mls/hr Q10H IV 09/16/24 20:30 09/17/24 05:39 11 MLS/HR Midazolam HCl 50 ml @ 1 mls/hr Q24H IV 09/17/24 05:30 09/17/24 10:51 4 MLS/HR Vancomycin HCl 0 ml @ 0 mls/hr UD IV 09/17/24 10:00 UNV Cefepime HCl 50 ml @ 12.5 mls/hr DAILY IV 09/17/24 10:00 09/17/24 12:29 12.5 MLS/HR Enteral Nutritional Formula 1,000 ml 30ML/HR GT 09/17/24 11:00 Diagnostic Test (Pha) 1 strip Q6HR 09/17/24 12:00 09/17/24 12:24 1 STRIP Insulin Human Regular Q6HR SC 09/17/24 12:00 09/17/24 12:11 3 UNITS Dextrose 50 ml UD PRN IV 09/17/24 11:00 Fentanyl Citrate 250 ml @ 2.5 mls/hr Q24H IV 09/17/24 11:30 09/17/24 12:12 2.5 MLS/HR objective GENERAL: Intubated on ventilator. EYES: PERRL, EOMI. Anicteric. HENT: Moist mucous membranes. LUNGS: breath sounds. CARDIOVASCULAR: Regular rate and rhythm. ABDOMEN: Soft, nontender and nondistended. Patient has a functioning colostomy bag noted to the right-sided abdomen. EXTREMITIES: Pitting edema in all extremities. Right AKA. SKIN: Warm, dry. laboratory and microbiology Laboratory Tests 09/17/24 03:00 Test 09/17/24 03:00 Range/Units Serum Glucose 221 H 74-106 mg/dL Problem List Acute on chronic hypoxic respiratory failure secondary to probable CHF exacerbation. Acute on chronic Moderately reduced congestive heart failure exacerbation-NYHA class 4. Pneumonia. AFib, rate controlled on Eliquis. COPD on 3 L home oxygen. Mild coronary artery disease. Sick sinus syndrome status post dual-chamber Biotronik pacemaker 2015. Obstructive apnea on CPAP. Acute cystitis. Diabetes mellitus type 2-A1c 6.4. ? CASS on CKD. Left-sided hydrocele. Anemia likely iron-deficiency. Secondary hypercoagulable state. History of left breast cancer status post surgery and tamoxifen therapy 2007. History of laparoscopic left radical nephrectomy 2013. History of colostomy 2019. Stage I decubitus sacral ulcer. Tunnel hemorrhoids. Diverticulosis. Assessment/Plan Continued all current supportive medical care. IV antibiotics as ordered. Dopamine drip. Diuretics with Lasix. GI prophylactics. Vasopressors for hemodynamic support. Additional plan as per the hospital course. Critical care time of 45 minutes provided to include time spent evaluation of patient at bedside, when appropriate patient/family education for diagnosis, treatment plan, review of pertinent medical information and discussion of care with specialty providers and PCP. Mechanical ventilator parameters, treatment and adjustments have personally been reviewed by me and treatment plan by charter boat operator has also been reviewed. Dietary Evaluation Review Comments: 1) Matthieu 1 pk daily (ordered per ONS protocol) 2) CCHO 75gm + cardiac 3) Refer Customer Sales Specialist on DC 4) Continue current plan of care Expected Outcomes/Goals: To meet >75% estimated needs Fu 3-5 days Plan discussed with: Other EVERTON SHELDON MD Sep 17, 2024 13:40
[2024-09-18] VITALS (103 sets, daily range): BP systolic 73–139; BP diastolic 34–62; PULSE 84–112; RESP 19–20; TEMP 98–98.3; O2SAT 93–100
[2024-09-18 04:06] LABS: Hemoglobin 12.4 g/dL (13.5-17.5); Mean Corpuscular Volume 75.1 fL (80.0-100.0); Nucleated Red Blood Cells % 0.1 %
[2024-09-18 04:12] LABS: Basophils # (auto) 0 10 ^3/uL (0-0.2); Eosinophils # (auto) 0.1 10 ^3/uL (0-0.8); Eosinophils % (auto) 0.9 % (0.0-7.0); Hematocrit 38.9 % (41.0-53.0); Lymphocytes # (auto) 0.5 10 ^3/uL (0.4-5.4); Lymphocytes % (auto) 3.7 % (10.0-50.0); Monocytes # (auto) 1.1 10 ^3/uL (0-1.3); Monocytes % (auto) 7.6 % (0.0-12.0); Neutrophils # (auto) 12.6 10 ^3/uL (1.6-8.6); Neutrophils % (auto) 87.8 % (37.0-80.0); Platelet Count (auto) 155 10^3/uL (140-450); Red Blood Cells 5.17 10^6/uL (4.5-5.90); Red Cell Distribution Width 20.8 % (11.8-14.3); White Blood Cell 14.3 10^3/uL (4.4-10.8)
[2024-09-18 04:16] LABS: Chloride 101 mmol/L (98-107); Potassium 3.5 mmol/L (3.5-5.1); Sodium 139 mmol/L (136-145)
[2024-09-18 04:17] LABS: Anion Gap 16 (5-15); Calcium 9.1 mg/dL (8.7-10.4); Carbon Dioxide 22 mmol/L (20-31)
[2024-09-18 04:25] LABS: Phosphorus 4.4 mg/dL (2.4-5.1)
[2024-09-18 04:28] LABS: Glucose 175 mg/dL (74-106)
[2024-09-18 04:29] LABS: Blood Urea Nitrogen 99 mg/dL (9-23)
--- NOTE | 2024-09-18 05:54 | DVH ---
EXAM: XR Chest, 1 View CLINICAL INDICATION: B/L pulmonary congestion, on ventilator TECHNIQUE: Frontal view of the chest. COMPARISON: XY CHEST PORTABLE on DOS: 09/17/24, XY CHEST PORTABLE on DOS: 09/17/24, XY CHEST PORTABLE on DOS: 09/16/24, XY CHEST XRAY 1 VIEW on DOS: 09/16/24, XY CHEST PORTABLE on DOS: 09/16/24 FINDINGS: LUNGS AND PLEURAL SPACES: See below. HEART: Cardiomegaly with pulmonary congestion and edema. Superimposed pneumonia cannot be excluded. MEDIASTINUM: Unremarkable. Normal mediastinal contour. BONES/JOINTS: Unremarkable. No acute fracture. TUBES, LINES AND DEVICES: The endotracheal tube (ETT) is in satisfactory position. Left-sided card iac pacemaker. OTHER FINDINGS: . . . IMPRESSION: Cardiomegaly with pulmonary congestion and edema. Superimposed pneumonia cannot be excluded.
[2024-09-18 08:01] LABS: INR 1.24 (0.9-1.15); Partial Thromboplastin Time 35.5 SEC (24.5-34.5); Prothrombin Time 12.9 sec (9.3-11.8)
[2024-09-18 08:14] LABS: Base Excess -5.3 mmol/L (-2.0-3.0)
[2024-09-18] MEDS: MUPIROCIN 2% OINT 15gm or 22gm FOR MRSA NARES EACHNOSTRI SCH (09:27)
--- NOTE | 2024-09-18 10:54 | DVH ---
EXAM: XY CHEST PORTABLE Indication: PLACEMENT OF ALYSON CATHETER Technique: Single frontal view of the chest was obtained Comparison: XY CHEST XRAY 1 VIEW on DOS: 09/18/24, XY CHEST PORTABLE on DOS: 09/17/24, XY CHEST PORTABL E on DOS: 09/17/24, XY CHEST PORTABLE on DOS: 09/16/24, XY CHEST XRAY 1 VIEW on DOS: 09/16/24 FINDINGS: Lines and Tubes: Endotracheal tube projects 4.5 cm above the cristopher. Right internal jugular central venous catheter tip projects over the superior vena cava. Enteric tube tip projects over the expecte d region of the stomach. Cardiac pacemaker projects over left chest wall. Lungs: Bibasilar opacities Pleura: Small left pleural effusion No pneumothorax. Cardiomediastinal contours: Cardiomegaly. Bones: No acute osseous abnormality. IMPRESSION: Cardiomegaly with small left pleural effusion and bibasilar opacities. Lines and tubes in appropriate position.
[2024-09-18] MEDS: SODIUM CHL 0.9% 1000 ML BAG XX ONE (11:35)
[2024-09-18] MEDS: ALBUMIN 25% 100 ML IV PRN (11:35)
--- NOTE | 2024-09-18 13:44 | DVHNC2 ---
Central Line Recorder of insertion practice: Floorperson Occupation of angle shear set up operator: Other (resident physician) Indication: Other (dialysis) Room prepared for procedure: Yes Floorperson performed hand hygien: Yes Maximal sterile barrier precau: Mask/Eye shield, Sterile gown, Cap, Sterlie gloves, Large sterlie drape Skin Preparation: Chlorhexidine gluconate, Providine iodine, Alcohol Skin preparation completely dr: Yes Insertion site: Right, Internal jugular Central line catheter type: Dialysis non-tunneled Number of lumens: 2 Post Assessment: Chest X-Ray, Proper placement Informed consent obtained: Yes Notes Jose catheter placed in the right IJ vein Date of Service: Sep 18, 2024 Billing Provider: ENMA MORENO MD Common Visit Codes: PROCEDURE ONLY Procedure Codes: [id number] NON-TUNNEL CV CATH SEBAS ALLAN RESIDENT Sep 18, 2024 13:44 ENMA MORENO MD Sep 20, 2024 12:43
--- NOTE | 2024-09-18 13:45 | DVHPNRES ---
Progress Note Date Seen: Sep 18, 2024 Resident Creating Document: SANJANASEBAS RESIDENT Medical Necessity Reason Pt with a Central, PICC or Fol: No The following are medically ne: Xavier Catheter Subjective Review of Systems Patient was a 79-year-old male with a past medical history as described below presented to the hospital with a chief complaint of shortness of breath and edema for 2 weeks. Patient reported that he was apparently doing well until 2 weeks ago on 3.5 L home oxygen when he started to have worsening shortness of breath, orthopnea associated with cough with yellowish phlegm and also complained of edema, associated body aches, fatigue. Past medical history: COPD on 3.5 L oxygen per minute, heart failure with reduced ejection fraction, coronary artery disease, atrial fibrillation on Eliquis, sick sinus syndrome tongue, insulin dependent type 2 diabetes mellitus, obstructive sleep apnea on CPAP, peripheral artery disease Past surgical history: Left radical nephrectomy, dual-chamber pacemaker, right above-knee amputation Social history: Patient is nonambulatory, quit smoking in year 1999 and denies any alcohol or other drug use Home medications: Eliquis 2.5 mg b.i.d., carvedilol 3.125 mg b.i.d., cilostazol 50 mg b.i.d., Lasix 20 mg daily Review of systems Patient seen and examined at the bedside 09/17 Patient was shifted yesterday from the floor to the ICU after he was started on vasopressor support for low blood pressure. Overnight patient had worsening respiratory status with ABG showing respiratory acidosis with increased CO2 and altered mental status following which the patient was intubated and put on mechanical ventilation. On my exam in the morning patient was edematous with a pitting edema in his upper and lower extremities. Patient had low urine output with blood and clots in the Xavier's catheter which cleared up during the day. Patient also had some bleeding in with the suction bag from the mouth which cleared up as well. Patient continues to be on Lasix drip and vasopressor support with norepinephrine. 09/18 patient seen and examined at the bedside Still edematous, urine output overnight 1600ml. Jose catheter was inserted in the right IJV following which dialysis was done with removal of 2.5L/ day' blood pressure support with norepinephrine chest x ray showed bibasilar opacities and b/l congestion with cardiomegaly Objective vital signs Vital Sign Date Time Temp Pulse Resp B/P (MAP) Pulse Ox O2 Delivery O2 Flow Rate FiO2 09/18/24 12:56 111/62 09/18/24 12:03 107 20 98 50 09/18/24 10:00 Mechanical Ventilator 09/18/24 08:00 98.0 98.0 09/16/24 10:00 5 Total Intake and Output 09/17/24 09/17/24 09/18/24 15:00 23:00 07:00 Intake Total 452.427 ml 514.286 ml 429.52 ml Output Total 1150 ml 1600 ml Balance 452.427 ml -635.714 ml -1170.48 ml medications Current Medications Medications Dose Ordered Sig/Paramjit Route Start Time Stop Time Status Last Admin Dose Admin Levalbuterol HCl 1.25 mg Q6HR NEB 09/12/24 06:00 09/18/24 12:03 1.25 MG Ipratropium [place] 0.5 mg Q6HR NEB 09/12/24 06:00 09/18/24 12:03 0.5 MG Ondansetron HCl 4 mg Q4HPRN PRN IV 09/12/24 04:00 09/12/24 09:46 4 MG Pantoprazole Sodium 40 mg DAILY IV 09/13/24 10:00 09/18/24 09:27 40 MG Dopamine HCl/ Dextrose 250 ml @ 10.444 mls/ hr [id number] IV 09/16/24 10:30 09/18/24 08:27 10.444 MLS/HR Norepinephrine Bitartrate 250 ml @ 3.75 mls/hr Q24H IV 09/16/24 17:15 09/18/24 12:56 30 MLS/HR Furosemide 100 mg/ Sodium Chloride 110 ml @ 11 mls/hr Q10H IV 09/16/24 20:30 09/18/24 08:24 11 MLS/HR Midazolam HCl 50 ml @ 1 mls/hr Q24H IV 09/17/24 05:30 09/18/24 08:36 3 MLS/HR Vancomycin HCl 0 ml @ 0 mls/hr UD IV 09/17/24 10:00 Cefepime HCl 50 ml @ 12.5 mls/hr DAILY IV 09/17/24 10:00 09/18/24 09:27 12.5 MLS/HR Enteral Nutritional Formula 1,000 ml 30ML/HR GT 09/17/24 11:00 Dextrose 50 ml UD PRN IV 09/17/24 11:00 Cancel Fentanyl Citrate 250 ml @ 2.5 mls/hr Q24H IV 09/17/24 11:30 09/18/24 08:43 7.5 MLS/HR Diagnostic Test (Pha) 1 strip Q6HR 09/17/24 18:00 09/18/24 05:47 1 STRIP Insulin Human Regular Q6HR SC 09/17/24 18:00 09/18/24 11:37 3 UNITS Dextrose 50 ml UD PRN IV 09/17/24 15:30 Mupirocin 1 applic BID EACHNOSTRI 09/18/24 10:00 09/23/24 09:59 09/18/24 09:27 1 APPLIC Albumin Human 100 ml @ 100 mls/hr PRN PRN IV 09/18/24 08:30 09/18/24 22:35 09/18/24 12:35 100 MLS/HR Examination Constitutional: Patient is on mechanical ventilation and sedated with a RASS -4 Gen - no pallor, no icterus, no cyanosis, no clubbing Skin - Patients skin is warm and dry.. Skin of the left lower extremity below the knee is mottled with poor blood supply and cold limb HEENT - normocephalic, atraumatic, moist mucous membranes. Neck - full ROM, no LAD, JVD could not be assessed Pulmonary - B/L diminished breath sounds, no wheezing, no stridor. cardiovascular - variable S1,S2 heard, no added sounds no murmurs heard. GI - soft abdomen. no hepatospleenomegaly. Bowel sounds normoactive extremities- right LE AKA with 2+ edema, left LE with mottled appearacne and cold with very weak pulse Neurological - patient was sedated and on mechanical ventilation, gag reflex present, pupils anisocoric but sluggishly reactive laboratory and microbiology Laboratory Tests 09/18/24 03:15 Test 09/18/24 03:15 Range/Units Serum Glucose 175 H 74-106 mg/dL Microbiology Date/Time Source Procedure Growth Status 09/17/24 08:45 Blood Blood Culture - Preliminary NO GROWTH AFTER 24 HOURS OF INCUBATION. Resulted 09/17/24 05:11 Sputum Gram Stain - Final Resulted 09/17/24 05:11 Sputum Respiratory Culture - Preliminary Resulted 09/16/24 19:55 Nose MRSA Screen - Final Methicillin Resistant S.aureus Complete 09/11/24 23:15 Voided Urine Urine Culture - Final Escherichia coli Complete Problem List/Assessment/Plan Problem List/Assessment/Plan Neurology Acute metabolic encephalopathy likely due to hypercapnia - on mechanical ventilation - RASS -4 Respiratory Acute on chronic hypercarbic respiratory failure COPD ?Pneumonia likely due to Gram +/-bacteria Severe pulmonary hypertension Obstructive sleep apnea - on mechanical ventilation - DuoNebs q.6 hours - IV antibiotics vancomycin and cefepime Cardiovascular Shock likely due to sepsis, cultures pending Acute on chronic heart failure with a reduced ejection fraction NYHA class 4 Paroxysmal atrial fibrillation , sick sinus syndrome with a dual-chamber pacemaker Coronary artery disease (coronary angiogram in 2020) Severe pulmonary hypertension with RV hypokinesis Peripheral artery disease with right above-knee amputation - on vasopressors with norepinephrine - on Lasix drip at 10 milligram/hour but urine output is not adequate and patient will likely need dialysis - anticoagulation with lovenox Nephrology CASS 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 - BUN creatinine worsening - urine output noted but not adequate to the Lasix dosage - will likely need hemodialysis - nephrology on board Infectious disease Septic shock likely due to UTI versus pneumonia UTI growing E coli - cultures repeated as the white count was increasing, patient was tachycardic - no wounds noted - on IV vancomycin and cefepime Left femoral central venous catheter placed on 09/17 Right IJV jose catheter placed on 09/18 Xavier's catheter Diet: Via NG tube PUD prophylaxis: Protonix DVT prophylaxis: enoxparin Goals of care discussed with the patient was family over 27 minutes. Code status: Full code time 21 minutes Critical care time spent excluding procedures: 63 minutes Plan discussed with Plan discussed with: Spouse (Sima Najera), Other (RN ( Chantell )) My Orders My Orders Orders - SEBAS ALLAN RESIDENT Procedure Category Date Status Time Vancomycin Per FRANCES 09/17/24 In Process Pharmacy Protoc 17:14 Chest Xray 1 View XY 09/18/24 Resulted 04:00 Abg W/ Co-Ox RT 09/18/24 Logged 04:00 Chest Portable XY 09/18/24 Resulted 10:00 Potassium Chl PHA 09/18/24 Logged 20meq/100ml 13:45 Magnesium LAB 09/18/24 Logged 13:33 Dietary Evaluation Review Comments: 1) Matthieu 1 pk daily (ordered per ONS protocol) 2) CCHO 75gm + cardiac 3) Refer Ore Crushing Dust Collector on DC 4) Continue current plan of care Expected Outcomes/Goals: To meet >75% estimated needs Fu 3-5 days Date of Service: Sep 18, 2024 Billing Provider: ENMA MORENO MD Common Visit Codes: [id number] CARE 30-74 MIN SEBAS ALLAN RESIDENT Sep 18, 2024 13:45 ENMA MORENO MD Sep 20, 2024 12:49
[2024-09-18] MEDS: POTASSIUM CHL 20MEQ/50ML 50 ML IV ONE (14:00)
--- NOTE | 2024-09-18 15:38 | DVHPN2 ---
Progress Note Date Seen: Sep 18, 2024 Medical Necessity Reason Pt with a Central, PICC or Fol: No The following are medically ne: Xavier Catheter Subjective Patient reports: Other (intubated) Review of Systems: Deferred Objective vital signs Vital Sign Date Time Temp Pulse Resp B/P (MAP) Pulse Ox O2 Delivery O2 Flow Rate FiO2 09/18/24 14:28 101 20 114/56 (75) 97 50 09/18/24 10:00 Mechanical Ventilator 09/18/24 08:00 98.0 98.0 09/16/24 10:00 5 Total Intake and Output 09/17/24 09/17/24 09/18/24 15:00 23:00 07:00 Intake Total 452.427 ml 514.286 ml 429.52 ml Output Total 1150 ml 1600 ml Balance 452.427 ml -635.714 ml -1170.48 ml medications Current Medications Medications Dose Ordered Sig/Paramjit Route Start Time Stop Time Status Last Admin Dose Admin Levalbuterol HCl 1.25 mg Q6HR NEB 09/12/24 06:00 09/18/24 12:03 1.25 MG Ipratropium [place] 0.5 mg Q6HR NEB 09/12/24 06:00 09/18/24 12:03 0.5 MG Ondansetron HCl 4 mg Q4HPRN PRN IV 09/12/24 04:00 09/12/24 09:46 4 MG Pantoprazole Sodium 40 mg DAILY IV 09/13/24 10:00 09/18/24 09:27 40 MG Dopamine HCl/ Dextrose 250 ml @ 10.444 mls/ hr [id number] IV 09/16/24 10:30 09/18/24 08:27 10.444 MLS/HR Norepinephrine Bitartrate 250 ml @ 3.75 mls/hr Q24H IV 09/16/24 17:15 09/18/24 12:56 30 MLS/HR Furosemide 100 mg/ Sodium Chloride 110 ml @ 11 mls/hr Q10H IV 09/16/24 20:30 09/18/24 08:24 11 MLS/HR Midazolam HCl 50 ml @ 1 mls/hr Q24H IV 09/17/24 05:30 09/18/24 08:36 3 MLS/HR Vancomycin HCl 0 ml @ 0 mls/hr UD IV 09/17/24 10:00 Cefepime HCl 50 ml @ 12.5 mls/hr DAILY IV 09/17/24 10:00 09/18/24 09:27 12.5 MLS/HR Enteral Nutritional Formula 1,000 ml 30ML/HR GT 09/17/24 11:00 Dextrose 50 ml UD PRN IV 09/17/24 11:00 Cancel Fentanyl Citrate 250 ml @ 2.5 mls/hr Q24H IV 09/17/24 11:30 09/18/24 08:43 7.5 MLS/HR Diagnostic Test (Pha) 1 strip Q6HR 09/17/24 18:00 09/18/24 05:47 1 STRIP Insulin Human Regular Q6HR SC 09/17/24 18:00 09/18/24 11:37 3 UNITS Dextrose 50 ml UD PRN IV 09/17/24 15:30 Mupirocin 1 applic BID EACHNOSTRI 09/18/24 10:00 09/23/24 09:59 09/18/24 09:27 1 APPLIC Albumin Human 100 ml @ 100 mls/hr PRN PRN IV 09/18/24 08:30 09/18/24 22:35 09/18/24 12:35 100 MLS/HR Examination: GENERAL:Abnormal, LUNGS:Abnormal, ABDOMEN:Abnormal, SKIN:Abnormal laboratory and microbiology Laboratory Tests 09/18/24 03:15 Test 09/18/24 03:15 Range/Units Serum Glucose 175 H 74-106 mg/dL Microbiology Date/Time Source Procedure Growth Status 09/17/24 08:45 Blood Blood Culture - Preliminary NO GROWTH AFTER 24 HOURS OF INCUBATION. 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 Diastolic heart failure with severe right-sided heart failure Acute respiratory failure HD today, continued and frequent treatment Pressors to maintain mean arterial pressure greater than 65 Strict Is&Os Poor prognosis Critical care time spent 35 minutes Plan discussed with: Other My Orders My Orders Orders - QUAN MIRAMONTES MD Procedure Category Date Status Time Dialysis Nursing FRANCES 09/18/24 In Process Message 07:00 Document Fluid Input FRANCES 09/18/24 In Process And Outpu 07:00 Acute Hepatitis Panel LAB 09/18/24 Verified 07:00 Acute Hepatitis Panel LAB 09/17/24 In Process 19:29 Hemodialysis Orders ORDERS 09/18/24 Transmitted 07:15 Albumin 25% ([place]) PHA 09/18/24 In Process 08:30 Dietary Evaluation Review Comments: 1) Matthieu 1 pk daily (ordered per ONS protocol) 2) CCHO 75gm + cardiac 3) Refer Appeals Nurse on DC 4) Continue current plan of care Expected Outcomes/Goals: To meet >75% estimated needs Fu 3-5 days QUAN MIRAMONTES MD Sep 18, 2024 15:38
--- NOTE | 2024-09-18 16:20 | DVH ---
CHEST RADIOGRAPH Indication: CHF Technique: Single frontal view of the chest was obtained COMPARISON: XY CHEST XRAY 1 VIEW on DOS: 09/16/24 FINDINGS / IMPRESSION: Lines and Tubes: Dual-lead pacemaker again noted overlying left chest wall. Previously seen right IJ central venous catheter has been removed. Lungs / Pleura: Increased pulmonary vascularity and perihilar opacities consistent with pulmonary kamaljit ma. Bibasilar atelectasis/consolidation greater on the left side. Possible small left pleural effusio n. No pneumothorax. No significant change compared to the prior chest x-ray from earlier the same day . Cardiomediastinal contours: Unremarkable
--- NOTE | 2024-09-18 23:14 | DVHPN2 ---
Progress Note - Dictate Date Seen: Sep 18, 2024 Medical Necessity Reason Pt with a Central, PICC or Fol: No The following are medically ne: Xavier Catheter Subjective Patient was seen and evaluated in follow up in the ICU. Patient is intubated and sedated on ventilator. 50% FiO2. WBC 14.3, BUN 99, HOSPITAL MANAGER 3.54. Chest x-ray shows cardiomegaly with small left pleural effusion and bibasilar opacities. vital signs Vital Sign Date Time Temp Pulse Resp B/P (MAP) Pulse Ox O2 Delivery O2 Flow Rate FiO2 09/18/24 10:45 101 20 111/57 (75) 96 09/18/24 10:38 50 09/18/24 10:00 Mechanical Ventilator 09/18/24 08:00 98.0 98.0 09/16/24 10:00 5 Total Intake and Output 09/17/24 09/17/24 09/18/24 15:00 23:00 07:00 Intake Total 452.427 ml 514.286 ml 429.52 ml Output Total 1150 ml 1600 ml Balance 452.427 ml -635.714 ml -1170.48 ml medications Current Medications Medications Dose Ordered Sig/Paramjit Route Start Time Stop Time Status Last Admin Dose Admin Levalbuterol HCl 1.25 mg Q6HR NEB 09/12/24 06:00 09/18/24 06:16 1.25 MG Ipratropium [place] 0.5 mg Q6HR NEB 09/12/24 06:00 09/18/24 06:16 0.5 MG Ondansetron HCl 4 mg Q4HPRN PRN IV 09/12/24 04:00 09/12/24 09:46 4 MG Pantoprazole Sodium 40 mg DAILY IV 09/13/24 10:00 09/18/24 09:27 40 MG Dopamine HCl/ Dextrose 250 ml @ 10.444 mls/ hr [id number] IV 09/16/24 10:30 09/18/24 08:27 10.444 MLS/HR Norepinephrine Bitartrate 250 ml @ 3.75 mls/hr Q24H IV 09/16/24 17:15 09/18/24 02:01 22.5 MLS/HR Furosemide 100 mg/ Sodium Chloride 110 ml @ 11 mls/hr Q10H IV 09/16/24 20:30 09/18/24 08:24 11 MLS/HR Midazolam HCl 50 ml @ 1 mls/hr Q24H IV 09/17/24 05:30 09/18/24 08:36 3 MLS/HR Vancomycin HCl 0 ml @ 0 mls/hr UD IV 09/17/24 10:00 Cefepime HCl 50 ml @ 12.5 mls/hr DAILY IV 09/17/24 10:00 09/18/24 09:27 12.5 MLS/HR Enteral Nutritional Formula 1,000 ml 30ML/HR GT 09/17/24 11:00 Dextrose 50 ml UD PRN IV 09/17/24 11:00 Cancel Fentanyl Citrate 250 ml @ 2.5 mls/hr Q24H IV 09/17/24 11:30 09/18/24 08:43 7.5 MLS/HR Diagnostic Test (Pha) 1 strip Q6HR 09/17/24 18:00 09/18/24 05:47 1 STRIP Insulin Human Regular Q6HR SC 09/17/24 18:00 09/18/24 11:37 3 UNITS Dextrose 50 ml UD PRN IV 09/17/24 15:30 Mupirocin 1 applic BID EACHNOSTRI 09/18/24 10:00 09/23/24 09:59 09/18/24 09:27 1 APPLIC Albumin Human 100 ml @ 100 mls/hr PRN PRN IV 09/18/24 08:30 09/18/24 22:35 objective GENERAL: Intubated on ventilator. EYES: PERRL, EOMI. Anicteric. HENT: Moist mucous membranes. LUNGS: breath sounds. CARDIOVASCULAR: Regular rate and rhythm. ABDOMEN: Soft, nontender and nondistended. Patient has a functioning colostomy bag noted to the right-sided abdomen. EXTREMITIES: Pitting edema in all extremities. Right AKA. SKIN: Warm, dry. laboratory and microbiology Laboratory Tests 09/18/24 03:15 Test 09/18/24 03:15 Range/Units Serum Glucose 175 H 74-106 mg/dL Problem List Acute on chronic hypoxic respiratory failure secondary to probable CHF exacerbation. Acute on chronic Moderately reduced congestive heart failure exacerbation-NYHA class 4. Pneumonia. AFib, rate controlled on Eliquis. COPD on 3 L home oxygen. Mild coronary artery disease. Sick sinus syndrome status post dual-chamber Biotronik pacemaker 2016. Obstructive apnea on CPAP. Acute cystitis. Diabetes mellitus type 2-A1c 6.4. ? CASS on CKD. Left-sided hydrocele. Anemia likely iron-deficiency. Secondary hypercoagulable state. History of left breast cancer status post surgery and tamoxifen therapy 2007. History of laparoscopic left radical nephrectomy 2013. History of colostomy 2019. Stage I decubitus sacral ulcer. Tunnel hemorrhoids. Diverticulosis. Assessment/Plan Continued all current supportive medical care. IV antibiotics as ordered. Dopamine drip. Diuretics with Lasix. GI prophylactics. Vasopressors for hemodynamic support. Additional plan as per the hospital course. Critical care time of 45 minutes provided to include time spent evaluation of patient at bedside, when appropriate patient/family education for diagnosis, treatment plan, review of pertinent medical information and discussion of care with specialty providers and PCP. Mechanical ventilator parameters, treatment and adjustments have personally been reviewed by me and treatment plan by pattern changer and repairer has also been reviewed. Dietary Evaluation Review Comments: 1) Matthieu 1 pk daily (ordered per ONS protocol) 2) CCHO 75gm + cardiac 3) Refer Slot Shift Supervisor on DC 4) Continue current plan of care Expected Outcomes/Goals: To meet >75% estimated needs Fu 3-5 days Plan discussed with: Other EVERTON SHELDON MD Sep 18, 2024 12:08
[2024-09-19] VITALS (110 sets, daily range): BP systolic 87–136; BP diastolic 36–68; PULSE 92–115; RESP 16–29; TEMP 98.1–102.2; O2SAT 94–100
[2024-09-19 03:59] LABS: Basophils # (auto) 0 10 ^3/uL (0-0.2); Basophils % (auto) 0.2 % (0.0-2.0); Eosinophils # (auto) 0.3 10 ^3/uL (0-0.8); Eosinophils % (auto) 1.8 % (0.0-7.0); Hemoglobin 12.3 g/dL (13.5-17.5); Lymphocytes # (auto) 0.5 10 ^3/uL (0.4-5.4); Lymphocytes % (auto) 3.4 % (10.0-50.0); Mean Corpuscular Hgb Conc. 31.6 g/dL (32.0-36.0); Neutrophils # (auto) 12.6 10 ^3/uL (1.6-8.6); Neutrophils % (auto) 87.6 % (37.0-80.0); Platelet Count (auto) 121 10^3/uL (140-450); Red Blood Cells 5.13 10^6/uL (4.5-5.90); Red Cell Distribution Width 21.3 % (11.8-14.3); White Blood Cell 14.4 10^3/uL (4.4-10.8)
[2024-09-19 04:04] LABS: Anion Gap 17 (5-15); Carbon Dioxide 22 mmol/L (20-31); Chloride 101 mmol/L (98-107); Potassium 3.9 mmol/L (3.5-5.1); Sodium 140 mmol/L (136-145)
[2024-09-19 04:05] LABS: Calcium 9.6 mg/dL (8.7-10.4)
[2024-09-19 04:11] LABS: Blood Urea Nitrogen 72 mg/dL (9-23); Glucose 201 mg/dL (74-106)
[2024-09-19 04:12] LABS: Phosphorus 3.8 mg/dL (2.4-5.1)
--- NOTE | 2024-09-19 06:06 | DVH ---
EXAM: XR Chest, 1 View CLINICAL INDICATION: B/L pulmonary congestion, on vent TECHNIQUE: Frontal view of the chest. COMPARISON: XY CHEST PORTABLE on DOS: 09/18/24, XY CHEST XRAY 1 VIEW on DOS: 09/18/24, XY CHEST JEEVAN BLE on DOS: 09/17/24, XY CHEST PORTABLE on DOS: 09/17/24, XY CHEST PORTABLE on DOS: 09/16/24 FINDINGS: LUNGS AND PLEURAL SPACES: Congestive heart failure, unchanged. No consolidation. No pneumothorax. HEART: Unremarkable. No cardiomegaly. MEDIASTINUM: Unremarkable. Normal mediastinal contour. BONES/JOINTS: Unremarkable. No acute fracture. TUBES, LINES AND DEVICES: Stable tubes and lines. Left-sided cardiac pacemaker. OTHER FINDINGS: . . IMPRESSION: Congestive heart failure, unchanged.
[2024-09-19] MEDS: SODIUM CHL 0.9% 1000 ML BAG XX ONE (07:00)
[2024-09-19 07:16] LABS: Base Excess -2.9 mmol/L (-2.0-3.0)
[2024-09-19] MEDS ORDERED: ENOXAPARIN SOD 100 MG/1 ML SYRINGE SC SCH (10:00)
[2024-09-19 10:56] LABS: Hepatitis A Ab IgM Negative; Hepatitis B Core IgM Negative (Negative); Hepatitis B Surface Antigen Negative (Negative); Hepatitis C Antibody Negative (Negative)
--- NOTE | 2024-09-19 11:33 | DVHPN2 ---
Progress Note Date Seen: Sep 19, 2024 Medical Necessity Reason Pt with a Central, PICC or Fol: No The following are medically ne: Xavier Catheter Subjective Patient reports: Other Review of Systems: Deferred (remains intubated) Objective vital signs Vital Sign Date Time Temp Pulse Resp B/P (MAP) Pulse Ox O2 Delivery O2 Flow Rate FiO2 09/19/24 10:44 136/65 09/19/24 09:31 108 20 95 40 09/19/24 08:00 Mechanical Ventilator+ 09/19/24 04:00 98.6 98.6 Total Intake and Output 09/18/24 09/18/24 09/19/24 15:00 23:00 07:00 Intake Total 754.58 ml 835.77 ml 711.46 ml Output Total 900 ml 1200 ml Balance 754.58 ml -64.23 ml -488.54 ml medications Current Medications Medications Dose Ordered Sig/Paramjit Route Start Time Stop Time Status Last Admin Dose Admin Levalbuterol HCl 1.25 mg Q6HR NEB 09/12/24 06:00 09/19/24 06:24 1.25 MG Ipratropium [place] 0.5 mg Q6HR NEB 09/12/24 06:00 09/19/24 06:24 0.5 MG Ondansetron HCl 4 mg Q4HPRN PRN IV 09/12/24 04:00 09/12/24 09:46 4 MG Pantoprazole Sodium 40 mg DAILY IV 09/13/24 10:00 09/19/24 10:37 40 MG Dopamine HCl/ Dextrose 250 ml @ 10.444 mls/ hr [id number] IV 09/16/24 10:30 09/19/24 10:37 10.444 MLS/HR Norepinephrine Bitartrate 250 ml @ 3.75 mls/hr Q24H IV 09/16/24 17:15 09/19/24 00:29 18.75 MLS/HR Furosemide 100 mg/ Sodium Chloride 110 ml @ 11 mls/hr Q10H IV 09/16/24 20:30 09/19/24 03:16 11 MLS/HR Midazolam HCl 50 ml @ 1 mls/hr Q24H IV 09/17/24 05:30 09/19/24 02:00 1 MLS/HR Vancomycin HCl 0 ml @ 0 mls/hr UD IV 09/17/24 10:00 Cefepime HCl 50 ml @ 12.5 mls/hr DAILY IV 09/17/24 10:00 09/19/24 10:37 12.5 MLS/HR Enteral Nutritional Formula 1,000 ml 30ML/HR GT 09/17/24 11:00 Dextrose 50 ml UD PRN IV 09/17/24 11:00 Cancel Fentanyl Citrate 250 ml @ 2.5 mls/hr Q24H IV 09/17/24 11:30 09/18/24 08:43 7.5 MLS/HR Diagnostic Test (Pha) 1 strip Q6HR 09/17/24 18:00 09/19/24 05:21 1 STRIP Insulin Human Regular Q6HR SC 09/17/24 18:00 09/19/24 05:30 4 UNITS Dextrose 50 ml UD PRN IV 09/17/24 15:30 Mupirocin 1 applic BID EACHNOSTRI 09/18/24 10:00 09/23/24 09:59 09/19/24 10:00 1 APPLIC Acetaminophen 650 mg Q4HP PRN PO 09/19/24 10:00 Examination: GENERAL:Abnormal, LUNGS:Abnormal, CVS:Abnormal, ABDOMEN:Normal laboratory and microbiology Laboratory Tests 09/19/24 03:14 Test 09/19/24 03:14 Range/Units Serum Glucose 201 H 74-106 mg/dL Microbiology Date/Time Source Procedure Growth Status 09/17/24 08:45 Blood Blood Culture - Preliminary NO GROWTH AFTER 48 HOURS OF INCUBATION. 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 Diastolic heart failure with severe right-sided heart failure Acute respiratory failure HD today, continued and frequent treatment, will eval tomorrow if additional treatment required continue diuretics to maintain UOP Pressors to maintain mean arterial pressure greater than 65 Strict Is&Os Poor prognosis Critical care time spent 35 minutes Plan discussed with: Other My Orders My Orders Orders - QUAN MIRAMONTES MD Procedure Category Date Status Time Hemodialysis Orders ORDERS 09/19/24 Transmitted 07:00 Dialysis Nursing FRANCES 09/19/24 In Process Message 07:00 Document Fluid Input FRANCES 09/19/24 In Process And Outpu 07:00 Dietary Evaluation Review Comments: 1) Matthieu 1 pk daily (ordered per ONS protocol) 2) CCHO 75gm + cardiac 3) Refer Assistant Account Manager on DC 4) Continue current plan of care Expected Outcomes/Goals: To meet >75% estimated needs Fu 3-5 days QUAN MIRAMONTES MD Sep 19, 2024 11:33
[2024-09-19] MEDS: VANCOMYCIN 500mg/100mL 100 ML IV ONE (15:30)
--- NOTE | 2024-09-19 16:02 | DVHPNRES ---
Progress Note Date Seen: Sep 19, 2024 Resident Creating Document: SEBAS ALLAN RESIDENT Medical Necessity Reason Pt with a Central, PICC or Fol: No The following are medically ne: Xavier Catheter Subjective Review of Systems Patient was a 79-year-old male with a past medical history as described below presented to the hospital with a chief complaint of shortness of breath and edema for 2 weeks. Patient reported that he was apparently doing well until 2 weeks ago on 3.5 L home oxygen when he started to have worsening shortness of breath, orthopnea associated with cough with yellowish phlegm and also complained of edema, associated body aches, fatigue. Past medical history: COPD on 3.5 L oxygen per minute, heart failure with reduced ejection fraction, coronary artery disease, atrial fibrillation on Eliquis, sick sinus syndrome tongue, insulin dependent type 2 diabetes mellitus, obstructive sleep apnea on CPAP, peripheral artery disease Past surgical history: Left radical nephrectomy, dual-chamber pacemaker, right above-knee amputation Social history: Patient is nonambulatory, quit smoking in year 1999 and denies any alcohol or other drug use Home medications: Eliquis 2.5 mg b.i.d., carvedilol 3.125 mg b.i.d., cilostazol 50 mg b.i.d., Lasix 20 mg daily Review of systems Patient seen and examined at the bedside 09/17 Patient was shifted yesterday from the floor to the ICU after he was started on vasopressor support for low blood pressure. Overnight patient had worsening respiratory status with ABG showing respiratory acidosis with increased CO2 and altered mental status following which the patient was intubated and put on mechanical ventilation. On my exam in the morning patient was edematous with a pitting edema in his upper and lower extremities. Patient had low urine output with blood and clots in the Xavier's catheter which cleared up during the day. Patient also had some bleeding in with the suction bag from the mouth which cleared up as well. Patient continues to be on Lasix drip and vasopressor support with norepinephrine. 09/18 patient seen and examined at the bedside Still edematous, urine output noted Jose catheter was inserted in the right IJV following which dialysis was done with removal of 2.5L/ day' blood pressure support with norepinephrine chest x ray showed bibasilar opacities and B/L congestion with cardiomegaly Objective vital signs Vital Sign Date Time Temp Pulse Resp B/P (MAP) Pulse Ox O2 Delivery O2 Flow Rate FiO2 09/19/24 14:31 92 20 111/48 (69) 94 40 09/19/24 11:30 99.0 99.0 09/19/24 10:00 Mechanical Ventilator Total Intake and Output 09/18/24 09/18/24 09/19/24 15:00 23:00 07:00 Intake Total 754.58 ml 835.77 ml 711.46 ml Output Total 900 ml 1200 ml Balance 754.58 ml -64.23 ml -488.54 ml medications Current Medications Medications Dose Ordered Sig/Paramjit Route Start Time Stop Time Status Last Admin Dose Admin Levalbuterol HCl 1.25 mg Q6HR NEB 09/12/24 06:00 09/19/24 12:25 1.25 MG Ipratropium [place] 0.5 mg Q6HR NEB 09/12/24 06:00 09/19/24 12:25 0.5 MG Ondansetron HCl 4 mg Q4HPRN PRN IV 09/12/24 04:00 09/12/24 09:46 4 MG Pantoprazole Sodium 40 mg DAILY IV 09/13/24 10:00 09/19/24 10:37 40 MG Dopamine HCl/ Dextrose 250 ml @ 10.444 mls/ hr [id number] IV 09/16/24 10:30 09/19/24 10:37 10.444 MLS/HR Norepinephrine Bitartrate 250 ml @ 3.75 mls/hr Q24H IV 09/16/24 17:15 09/19/24 12:09 15 MLS/HR Furosemide 100 mg/ Sodium Chloride 110 ml @ 11 mls/hr Q10H IV 09/16/24 20:30 09/19/24 03:16 11 MLS/HR Midazolam HCl 50 ml @ 1 mls/hr Q24H IV 09/17/24 05:30 09/19/24 02:00 1 MLS/HR Vancomycin HCl 0 ml @ 0 mls/hr UD IV 09/17/24 10:00 Cefepime HCl 50 ml @ 12.5 mls/hr DAILY IV 09/17/24 10:00 09/19/24 10:37 12.5 MLS/HR Enteral Nutritional Formula 1,000 ml 30ML/HR GT 09/17/24 11:00 Dextrose 50 ml UD PRN IV 09/17/24 11:00 Cancel Fentanyl Citrate 250 ml @ 2.5 mls/hr Q24H IV 09/17/24 11:30 09/18/24 08:43 7.5 MLS/HR Diagnostic Test (Pha) 1 strip Q6HR 09/17/24 18:00 09/19/24 12:07 1 STRIP Insulin Human Regular Q6HR SC 09/17/24 18:00 09/19/24 12:26 4 UNITS Dextrose 50 ml UD PRN IV 09/17/24 15:30 Mupirocin 1 applic BID EACHNOSTRI 09/18/24 10:00 09/23/24 09:59 09/19/24 10:00 1 APPLIC Acetaminophen 650 mg Q4HP PRN PO 09/19/24 10:00 Examination Constitutional: Patient is on mechanical ventilation and sedated with a RASS -4 Gen - no pallor, no icterus, no cyanosis, no clubbing Skin - Patients skin is warm and dry.. Skin of the left lower extremity below the knee is mottled with poor blood supply and cold limb HEENT - normocephalic, atraumatic, moist mucous membranes. Neck - full ROM, no LAD, JVD could not be assessed Pulmonary - B/L diminished breath sounds, no wheezing, no stridor. cardiovascular - variable S1,S2 heard, no added sounds no murmurs heard. GI - soft abdomen. no hepatospleenomegaly. Bowel sounds normoactive extremities- right LE AKA with 2+ edema, left LE with mottled appearacne and cold with very weak pulse Neurological - patient was sedated and on mechanical ventilation, gag reflex present, pupils anisocoric but sluggishly reactive laboratory and microbiology Laboratory Tests 09/19/24 03:14 Test 09/19/24 03:14 Range/Units Serum Glucose 201 H 74-106 mg/dL Microbiology Date/Time Source Procedure Growth Status 09/17/24 08:45 Blood Blood Culture - Preliminary NO GROWTH AFTER 48 HOURS OF INCUBATION. Resulted 09/17/24 05:11 Sputum Gram Stain - Final Complete 09/17/24 05:11 Respiratory Culture - Final Methicillin Resistant S.aureus Complete 09/16/24 19:55 Nose MRSA Screen - Final Methicillin Resistant S.aureus Complete 09/11/24 23:15 Voided Urine Urine Culture - Final Escherichia coli Complete Problem List/Assessment/Plan Problem List/Assessment/Plan Neurology Acute metabolic encephalopathy likely due to hypercapnia - on mechanical ventilation - RASS -4 Respiratory Acute on chronic hypercarbic respiratory failure COPD ?Pneumonia likely due to Gram +/-bacteria Severe pulmonary hypertension Obstructive sleep apnea - on mechanical ventilation - DuoNebs q.6 hours - sputum culture showing possible growth of MRSA - IV antibiotics vancomycin and cefepime Cardiovascular Shock likely due to sepsis, cultures pending Acute on chronic heart failure with a reduced ejection fraction NYHA class 4 Paroxysmal atrial fibrillation , sick sinus syndrome with a dual-chamber pacemaker Coronary artery disease (coronary angiogram in 2020) Severe pulmonary hypertension with RV hypokinesis Peripheral artery disease with right above-knee amputation - on vasopressors with norepinephrine - on Lasix drip at 10 milligram/hour but urine output is not adequate and patient will likely need dialysis - anticoagulation held as the patient had gross hematuria 2 days ago and platelets are going down Nephrology CASS 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 UTI, ?acute cystitis - BUN creatinine improving - urine output noted but not adequate to the Lasix dosage - on HD, removed 2.5L on 09/18, and 2.5L today - nephrology on board Infectious disease Septic shock likely due to UTI versus pneumonia UTI growing E coli - cultures repeated as the white count was increasing, patient was tachycardic - no wounds noted - on IV vancomycin and cefepime Gastroenterology S/p diversion colostomy Left femoral central venous catheter placed on 09/17 Right IJV jose catheter placed on 09/18 Xavier's catheter Diet: Via NG tube PUD prophylaxis: Protonix DVT prophylaxis: Anticoagulation held because of hematuria 2 days ago, platelets trending down Goals of care discussed with the patient was family over 27 minutes. Code status: Full code time 21 minutes Critical care time spent excluding procedures: 51 minutes Plan discussed with Plan discussed with: Spouse (irena dixon) My Orders My Orders Orders - SEBAS ALLAN RESIDENT Procedure Category Date Status Time Abg W/ Co-Ox RT 09/19/24 Logged 04:00 Chest Xray 1 View XY 09/19/24 Resulted 04:00 Acetaminophen Tablet PHA 09/19/24 In Process (Tylenol Tablet) 10:00 Consult CONS 09/19/24 Transmitted Vascular/Endovascular 14:43 Vancomycin 500mg/100ml PHA 09/19/24 In Process 15:30 Vancomycin,Random LAB 09/20/24 Verified 05:00 Creatinine LAB 09/20/24 Verified 05:00 Dietary Evaluation Review Comments: 1) Matthieu 1 pk daily (ordered per ONS protocol) 2) CCHO 75gm + cardiac 3) Refer Bicycle [employer] on DC 4) Continue current plan of care Expected Outcomes/Goals: To meet >75% estimated needs Fu 3-5 days SEBAS ALLAN RESIDENT Sep 19, 2024 16:02
--- NOTE | 2024-09-19 19:32 | DVH ---
US Lt Low Ext Art Duplex or arterial perfusion left lower extremity. HISTORY: poor perfusion COMPARISON: US BILAT LOW EXT ART DUPLEX on DOS: 09/12/24, US LT LOW EXT ART DUPLEX on DOS: 01/24/24, LL EAD on DOS: 02/13/21 TECHNIQUE: The bilateral lower extremity arteries were examined with grayscale imaging, color Doppler , and spectral waveform analysis. FINDINGS: The bilateral lower extremity arteries are normal in caliber with no significant plaque or aneurysm. The following arterial peak systolic velocities (cm/sec) and waveforms were obtained: Left Common femoral artery: Not visualized Profunda femoris artery: Not visualized Upper SFA: Zero Mid SFA: Zero Low SFA: Occluded Popliteal artery: Occluded Posterior tibial artery: Occluded Dorsalis pedis artery: Occluded IMPRESSION: 1. Occluded flow left lower extremity.
--- NOTE | 2024-09-19 21:15 | DVHPN2 ---
Progress Note - Dictate Date Seen: Sep 19, 2024 Medical Necessity Reason Pt with a Central, PICC or Fol: No The following are medically ne: Xavier Catheter Subjective Patient was seen and evaluated in follow up in the ICU. Patient is intubated and sedated on ventilator. 40% FiO2. WBC 14.4, BUN 72, INPATIENT NURSING AIDE 3.13, GLUC 211. Chest x- ray showed congestive heart failure, unchanged. vital signs Vital Sign Date Time Temp Pulse Resp B/P (MAP) Pulse Ox O2 Delivery O2 Flow Rate FiO2 09/19/24 12:26 98 20 115/66 (82) 95 40 09/19/24 11:30 99.0 99.0 09/19/24 10:00 Mechanical Ventilator Total Intake and Output 09/18/24 09/18/24 09/19/24 15:00 23:00 07:00 Intake Total 754.58 ml 835.77 ml 711.46 ml Output Total 900 ml 1200 ml Balance 754.58 ml -64.23 ml -488.54 ml medications Current Medications Medications Dose Ordered Sig/Paramjit Route Start Time Stop Time Status Last Admin Dose Admin Levalbuterol HCl 1.25 mg Q6HR NEB 09/12/24 06:00 09/19/24 12:25 1.25 MG Ipratropium [place] 0.5 mg Q6HR NEB 09/12/24 06:00 09/19/24 12:25 0.5 MG Ondansetron HCl 4 mg Q4HPRN PRN IV 09/12/24 04:00 09/12/24 09:46 4 MG Pantoprazole Sodium 40 mg DAILY IV 09/13/24 10:00 09/19/24 10:37 40 MG Dopamine HCl/ Dextrose 250 ml @ 10.444 mls/ hr [id number] IV 09/16/24 10:30 09/19/24 10:37 10.444 MLS/HR Norepinephrine Bitartrate 250 ml @ 3.75 mls/hr Q24H IV 09/16/24 17:15 09/19/24 12:09 15 MLS/HR Furosemide 100 mg/ Sodium Chloride 110 ml @ 11 mls/hr Q10H IV 09/16/24 20:30 09/19/24 03:16 11 MLS/HR Midazolam HCl 50 ml @ 1 mls/hr Q24H IV 09/17/24 05:30 09/19/24 02:00 1 MLS/HR Vancomycin HCl 0 ml @ 0 mls/hr UD IV 09/17/24 10:00 Cefepime HCl 50 ml @ 12.5 mls/hr DAILY IV 09/17/24 10:00 09/19/24 10:37 12.5 MLS/HR Enteral Nutritional Formula 1,000 ml 30ML/HR GT 09/17/24 11:00 Dextrose 50 ml UD PRN IV 09/17/24 11:00 Cancel Fentanyl Citrate 250 ml @ 2.5 mls/hr Q24H IV 09/17/24 11:30 09/18/24 08:43 7.5 MLS/HR Diagnostic Test (Pha) 1 strip Q6HR 09/17/24 18:00 09/19/24 12:07 1 STRIP Insulin Human Regular Q6HR SC 09/17/24 18:00 09/19/24 12:26 4 UNITS Dextrose 50 ml UD PRN IV 09/17/24 15:30 Mupirocin 1 applic BID EACHNOSTRI 09/18/24 10:00 09/23/24 09:59 09/19/24 10:00 1 APPLIC Acetaminophen 650 mg Q4HP PRN PO 09/19/24 10:00 objective GENERAL: Intubated on ventilator. EYES: PERRL, EOMI. Anicteric. HENT: Moist mucous membranes. LUNGS: breath sounds. CARDIOVASCULAR: Regular rate and rhythm. ABDOMEN: Soft, nontender and nondistended. Patient has a functioning colostomy bag noted to the right-sided abdomen. EXTREMITIES: Pitting edema in all extremities. Right AKA. SKIN: Warm, dry. laboratory and microbiology Laboratory Tests 09/19/24 03:14 Test 09/19/24 03:14 Range/Units Serum Glucose 201 H 74-106 mg/dL Problem List Acute on chronic hypoxic respiratory failure secondary to probable CHF exacerbation. Acute on chronic Moderately reduced congestive heart failure exacerbation-NYHA class 4. Pneumonia. AFib, rate controlled on Eliquis. COPD on 3 L home oxygen. Mild coronary artery disease. Sick sinus syndrome status post dual-chamber Biotron[employer] pacemaker 2016. Obstructive apnea on CPAP. Acute cystitis. Diabetes mellitus type 2-A1c 6.4. ? CASS on CKD. Left-sided hydrocele. Anemia likely iron-deficiency. Secondary hypercoagulable state. History of left breast cancer status post surgery and tamoxifen therapy 2007. History of laparoscopic left radical nephrectomy 2013. History of colostomy 2019. Stage I decubitus sacral ulcer. Tunnel hemorrhoids. Diverticulosis. Assessment/Plan Continued all current supportive medical care. IV antibiotics as ordered. Dopamine drip. Diuretics with Lasix. GI prophylactics. Vasopressors for hemodynamic support. Additional plan as per the hospital course. Critical care time of 45 minutes provided to include time spent evaluation of patient at bedside, when appropriate patient/family education for diagnosis, treatment plan, review of pertinent medical information and discussion of care with specialty providers and PCP. Mechanical ventilator parameters, treatment and adjustments have personally been reviewed by me and treatment plan by air dispatcher has also been reviewed. Dietary Evaluation Review Comments: 1) Matthieu 1 pk daily (ordered per ONS protocol) 2) CCHO 75gm + cardiac 3) Refer [employer] on DC 4) Continue current plan of care Expected Outcomes/Goals: To meet >75% estimated needs Fu 3-5 days Plan discussed with: Other EVERTON SHELDON MD Sep 19, 2024 12:54
[2024-09-20] VITALS (106 sets, daily range): BP systolic 76–130; BP diastolic 32–69; PULSE 84–111; RESP 15–21; TEMP 97.7–100.4; O2SAT 94–100
[2024-09-20 04:13] LABS: Eosinophils # (auto) 0.5 10 ^3/uL (0-0.8)
[2024-09-20 04:17] LABS: Basophils # (auto) 0.1 10 ^3/uL (0-0.2); Basophils % (auto) 0.3 % (0.0-2.0); Hematocrit 42.2 % (41.0-53.0); Hemoglobin 13.1 g/dL (13.5-17.5); Lymphocytes # (auto) 0.7 10 ^3/uL (0.4-5.4); Mean Corpuscular Hemoglobin 23.7 pg (28.0-32.0); Mean Corpuscular Hgb Conc. 31.1 g/dL (32.0-36.0); Mean Corpuscular Volume 76.3 fL (80.0-100.0); Monocytes # (auto) 1.1 10 ^3/uL (0-1.3); Monocytes % (auto) 6.3 % (0.0-12.0); Neutrophils # (auto) 14.5 10 ^3/uL (1.6-8.6); Neutrophils % (auto) 86.4 % (37.0-80.0); Platelet Count (auto) 125 10^3/uL (140-450); Red Blood Cells 5.53 10^6/uL (4.5-5.90); Red Cell Distribution Width 21.2 % (11.8-14.3); White Blood Cell 16.8 10^3/uL (4.4-10.8)
[2024-09-20 04:20] LABS: Chloride 100 mmol/L (98-107); Potassium 3.8 mmol/L (3.5-5.1); Sodium 139 mmol/L (136-145)
[2024-09-20 04:21] LABS: Anion Gap 16 (5-15); Calcium 9.4 mg/dL (8.7-10.4); Carbon Dioxide 23 mmol/L (20-31)
[2024-09-20 04:26] LABS: BUN/Creatinine Ratio 19.4 (10.0-20.0); Triglycerides 139 mg/dL (< 150)
[2024-09-20 04:27] LABS: LDL Cholesterol 30 mg/dL (< 100); Magnesium 1.9 mg/dL (1.6-2.6)
[2024-09-20 04:28] LABS: Cholesterol 80 mg/dL (< 200); Phosphorus 3.1 mg/dL (2.4-5.1)
[2024-09-20 04:50] LABS: Glucose 242 mg/dL (74-106)
[2024-09-20 04:51] LABS: Blood Urea Nitrogen 42 mg/dL (9-23)
[2024-09-20 04:52] LABS: HDL Cholesterol 29 mg/dL (40-59)
--- NOTE | 2024-09-20 06:35 | DVH ---
CHEST RADIOGRAPH Indication: B/Ll pulmonary congestion, on vent Technique: Single frontal view of the chest was obtained COMPARISON: XY CHEST XRAY 1 VIEW on DOS: 09/19/24, XY CHEST PORTABLE on DOS: 09/18/24, XY CHEST XRAY 1 VIEW on DOS: 09/18/24, XY CHEST PORTABLE on DOS: 09/17/24, XY CHEST PORTABLE on DOS: 09/17/24 FINDINGS: Lines and Tubes: Unchanged. Lungs: Persistent diffuse increased prominence of the pulmonary vasculature. Small bilateral pleural effusions are not excluded. No pneumothorax. Cardiomediastinal contours: Stable cardiomegaly. Bones: Unremarkable IMPRESSION: 1. Stable diffuse increased prominence of the pulmonary vasculature and likely small bilateral pleura l effusions. 2. Stable cardiomegaly. 3. Lines and tubes unchanged.
[2024-09-20 07:42] LABS: Base Excess -1.4 mmol/L (-2.0-3.0)
[2024-09-20] MEDS: ACETAMINOPHEN 325 MG TAB PO PRN (09:07)
--- NOTE | 2024-09-20 10:19 | DVHPN2 ---
Subjective Mr. 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 Ortiz, ANA MARIA on CPAP, left breast cancer status post surgery on tamoxifen 1999 and, left nephrectomy due to left renal mass 2013, colostomy 2018, internal hemorrhoids, diverticulosis who presents to the ER with a chief complaint of shortness of breaths and generalized edema for the past 2 weeks. Patient reports that he has chronic cough which recently worsened 2 weeks back and became productive with yellowish phlegm following which he got short of breath and orthopneic associated with generalized weakness, body aches and fatigue. Also reported nausea but no vomiting or chest pain. He says that he is compliant with his Lasix 20 mg b.i.d.. Patient increased his oxygen from 3.5-4 L and started taking nebulized treatments which did improve him for the time being. He did not increases intake of inhalers which he takes b.i.d.. Initial lab workup revealed neutrophilia 83.2%, MCV 78.4, RDW 21.1, serum creatinine 2.03, BUN 36, HGB A1c 6.4, iron 27, ferritin 19.8, bilirubin 1.3, BNP 311, UDS negative, COVID and flu negative, urinalysis leukocyte esterase 3+, WBC 29, bacteria many. CXR- Pulmonary edema. Mild bibasilar subsegmental atelectasis/consolidation. Ultrasound of the testicle-Large hydrocele left scrotum with a heterogeneous nodule measuring a cm in size fixed to the anterior wall of the Hydrocele. Arterial Doppler of the lower extremity revealed-Multifocal tandem atherosclerotic plaque noted throughout the bilateral lower extremity arteries. Bilateral lower extremity Doppler study negative for DVT. Renal ultrasound revealed-Right renal cortical thinning and increased echotexture suggestive of medical renal disease.Status post left nephrectomy. Patient had a left heart catheterization in [address] TEE which showed mild CAD Last colonoscopy 2022 Last echo December 2023 showed EF 45% He was last admitted at this facility in January 2024 for acute respiratory failure with sepsis secondary to infected sacral ulcer with Pseudomonas and MRSA and Proteus. Past medical surgical history: See above Social history: Patient is nonambulatory. 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 Quit smoking in 1999 does not drink, denies illicit drug use. Lives with and daughter Patient seen and examined at the bedside. Currently saturating 94 on 5 L NC supplementation. Lasix dose 60 mg IV push was given by the ER. Continue 40 mg TID. Smoke: Quit ALCOHOL: none Drugs: None Lives: with Family Patient was seen today for clinical evaluation. patient in ICU. ventilated and sedated. Labs and chart reviewed. Reviewed: H&P Changes from previous H/P or p: No Changes General: Per HPI Objective Vitals Vital Signs Date Time Temp Pulse Resp B/P (MAP) Pulse Ox O2 Delivery O2 Flow Rate FiO2 09/20/24 09:07 100.4 09/20/24 08:00 20 98 Mechanical Ventilator+ 35 35 09/20/24 08:00 94 09/20/24 06:33 114/58 Intake/Output Intake and Output 09/20/24 07:00 Intake Total 1221.12 ml Output Total 2110 ml Balance -888.88 ml Intake Oral 20 ml IV Total 950.12 ml Tube Feeding 251 ml Output Urine Total 2100 ml Stool Total 10 ml Exam Constitutional: Patient is on mechanical ventilation and sedated with a RASS -4 Gen - no pallor, no icterus, no cyanosis, no clubbing Skin - Patients skin is warm and dry.. Skin of the left lower extremity below the knee is mottled with poor blood supply and cold limb HEENT - normocephalic, atraumatic, moist mucous membranes. Neck - full ROM, no LAD, JVD could not be assessed Pulmonary - B/L diminished breath sounds, no wheezing, no stridor. cardiovascular - variable S1,S2 heard, no added sounds no murmurs heard. GI - soft abdomen. no hepatospleenomegaly. Bowel sounds normoactive extremities- right LE AKA with 2+ edema, left LE with mottled appearacne and cold with very weak pulse Neurological - patient was sedated and on mechanical ventilation, gag reflex present, pupils anisocoric but sluggishly reactive Medications Current Medications Medications Dose Ordered Sig/Paramjit Route Start Time Stop Time Status Last Admin Dose Admin Levalbuterol HCl 1.25 mg Q6HR NEB 09/12/24 06:00 09/20/24 06:00 1.25 MG Ipratropium [place] 0.5 mg Q6HR NEB 09/12/24 06:00 09/20/24 06:00 0.5 MG Ondansetron HCl 4 mg Q4HPRN PRN IV 09/12/24 04:00 09/12/24 09:46 4 MG Pantoprazole Sodium 40 mg DAILY IV 09/13/24 10:00 09/20/24 09:00 40 MG Dopamine HCl/ Dextrose 250 ml @ 10.444 mls/ hr [id number] IV 09/16/24 10:30 09/19/24 10:37 10.444 MLS/HR Norepinephrine Bitartrate 250 ml @ 3.75 mls/hr Q24H IV 09/16/24 17:15 09/19/24 22:37 22.5 MLS/HR Midazolam HCl 50 ml @ 1 mls/hr Q24H IV 09/17/24 05:30 09/19/24 02:00 1 MLS/HR Vancomycin HCl 0 ml @ 0 mls/hr UD IV 09/17/24 10:00 Cefepime HCl 50 ml @ 12.5 mls/hr DAILY IV 09/17/24 10:00 09/20/24 09:00 12.5 MLS/HR Enteral Nutritional Formula 1,000 ml 30ML/HR GT 09/17/24 11:00 Dextrose 50 ml UD PRN IV 09/17/24 11:00 Cancel Fentanyl Citrate 250 ml @ 2.5 mls/hr Q24H IV 09/17/24 11:30 09/20/24 06:33 7.5 MLS/HR Diagnostic Test (Pha) 1 strip Q6HR 09/17/24 18:00 09/20/24 05:56 1 STRIP Insulin Human Regular Q6HR SC 09/17/24 18:00 09/20/24 05:55 4 UNITS Dextrose 50 ml UD PRN IV 09/17/24 15:30 Mupirocin 1 applic BID EACHNOSTRI 09/18/24 10:00 09/23/24 09:59 09/20/24 09:01 1 APPLIC Acetaminophen 650 mg Q4HP PRN PO 09/19/24 10:00 09/20/24 09:07 650 MG Furosemide 100 mg/ Sodium Chloride 110 ml @ 22 mls/hr Q5H IV 09/20/24 09:45 Laboratory Results Laboratory Tests 09/20/24 03:00 Chemistry Test 09/20/24 03:00 Calcium Level 9.4 mg/dL (8.7-10.4) Magnesium Level 1.9 mg/dL (1.6-2.6) Phosphorus Level 3.1 mg/dL (2.4-5.1) Lipid panel Test 09/20/24 03:00 Cholesterol Level 80 mg/dL (< 200) HDL Cholesterol 29 mg/dL (40-59) L Triglycerides Level 139 mg/dL (< 150) Urinalysis Test 09/11/24 23:15 09/14/24 22:12 09/15/24 13:45 Urine Color Light-yellow (Yellow) Urine Clarity Clear (Clear) Urine pH 5.0 (5.0-9.0) Urine Specific [place] 1.011 (1.001-1.035) Urine Protein Negative (Negative) Urine Ketones Negative (Negative) Urine Blood Negative /uL (Negative) Urine Nitrite Negative (Negative) Urine Bilirubin Negative (Negative) Urine Urobilinogen Normal mg/dL (Negative) Urine Leukocyte Esterase 3+ /uL (Negative) Urine RBC 1 /hpf (0 - 3) Urine Microscopic WBC 29 /HPF (0-3) H Urine Squamous Epithelial Cells None seen /hpf (<5) Urine Bacteria Many /hpf (None Seen) H Urine Protein/Creatinine Ratio 0.31 Urine Glucose Normal mg/dL (Normal) Urine Total Protein 87.7 mg/dL (1-14) H Urine Creatinine 141.86 mg/dL (30.0-125.0) H Urine Sodium 11 mmol/L (40-220) L Blood Gas Results Test 09/20/24 07:06 Arterial Blood pH 7.458 (7.350-7.450) FiO2 % 35.0 Microbiology Microbiology Date/Time Source Procedure Growth Status 09/17/24 08:45 Blood Blood Culture - Preliminary NO GROWTH AFTER 72 HOURS OF INCUBATION. Resulted 09/17/24 05:11 Sputum Gram Stain - Final Complete 09/17/24 05:11 Respiratory Culture - Final Methicillin Resistant S.aureus Complete 09/16/24 19:55 Nose MRSA Screen - Final Methicillin Resistant S.aureus Complete 09/11/24 23:15 Voided Urine Urine Culture - Final Escherichia coli Complete Labs and/or images reviewed: Labs reviewed by me, Image(s) reviewed by me Assessment/Plan Assessment/Plan update 09/20- patient in icu. getting HD. sedated ventilated. Vent settings are A/C 500/20/5/35%, ABG stable. Drips include Levophed 12, dopamine 2.5, Lasix 11, faint 50. Nephrology managing diuresis. no significant changes today. urine light strawcolor in mallory. will hold off sedation trial/cpap trials (sat/sbt) today. Neurology Acute metabolic encephalopathy likely due to hypercapnia - on mechanical ventilation - RASS -4 Respiratory Acute on chronic hypercarbic respiratory failure COPD ?Pneumonia likely due to Gram +/-bacteria Severe pulmonary hypertension Obstructive sleep apnea - on mechanical ventilation - DuoNebs q.6 hours - sputum culture showing possible growth of MRSA - IV antibiotics vancomycin and cefepime Cardiovascular Shock likely due to sepsis, cultures pending Acute on chronic heart failure with a reduced ejection fraction NYHA class 4 Paroxysmal atrial fibrillation , sick sinus syndrome with a dual-chamber pacemaker Coronary artery disease (coronary angiogram in 2020) Severe pulmonary hypertension with RV hypokinesis Peripheral artery disease with right above-knee amputation - on vasopressors with norepinephrine - on Lasix drip at 10 milligram/hour but urine output is not adequate and patient will likely need dialysis - anticoagulation held as the patient had gross hematuria 2 days ago and platelets are going down Nephrology CASS 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 - BUN creatinine improving - urine output noted but not adequate to the Lasix dosage - on HD, removed 2.5L on 09/18, and 2.5L 09/19 - nephrology on board Infectious disease Septic shock likely due to UTI versus pneumonia UTI growing E coli - cultures repeated as the white count was increasing, patient was tachycardic - no wounds noted - on IV vancomycin and cefepime Gastroenterology S/p diversion colostomy Left femoral central venous catheter placed on 09/17 Right IJV therese catheter placed on 09/18 Mallory's catheter Diet: Via NG tube PUD prophylaxis: Protonix DVT prophylaxis: Anticoagulation held because of hematuria 2 days ago, platelets trending down Goals of care discussed with the patient was family over 27 minutes. Code status: Full code time 21 minutes Critical care time spent excluding procedures: 51 minutes Plan discussed with: Other Date of Service: Sep 20, 2024 Billing Provider: YOLANDA ROBERTS MD Common Visit Codes: 72927-KIMXPATF CARE 30-74 MIN YOLANDA ROBERTS MD Sep 20, 2024 10:19
--- NOTE | 2024-09-20 10:29 | DVHPN2 ---
Progress Note - Dictate Date Seen: Sep 20, 2024 Medical Necessity Reason Pt with a Central, PICC or Fol: No The following are medically ne: Xavier Catheter vital signs Vital Sign Date Time Temp Pulse Resp B/P (MAP) Pulse Ox O2 Delivery O2 Flow Rate FiO2 09/20/24 09:07 100.4 09/20/24 08:00 20 98 Mechanical Ventilator+ 35 35 09/20/24 08:00 94 09/20/24 06:33 114/58 Total Intake and Output 09/19/24 09/19/24 09/20/24 15:00 23:00 07:00 Intake Total 457.77 ml 528.27 ml 235.08 ml Output Total 1110 ml 1000 ml Balance 457.77 ml -581.73 ml -764.92 ml medications Current Medications Medications Dose Ordered Sig/Paramjit Route Start Time Stop Time Status Last Admin Dose Admin Levalbuterol HCl 1.25 mg Q6HR NEB 09/12/24 06:00 09/20/24 06:00 1.25 MG Ipratropium [place] 0.5 mg Q6HR NEB 09/12/24 06:00 09/20/24 06:00 0.5 MG Ondansetron HCl 4 mg Q4HPRN PRN IV 09/12/24 04:00 09/12/24 09:46 4 MG Pantoprazole Sodium 40 mg DAILY IV 09/13/24 10:00 09/20/24 09:00 40 MG Dopamine HCl/ Dextrose 250 ml @ 10.444 mls/ hr [id number] IV 09/16/24 10:30 09/19/24 10:37 10.444 MLS/HR Norepinephrine Bitartrate 250 ml @ 3.75 mls/hr Q24H IV 09/16/24 17:15 09/19/24 22:37 22.5 MLS/HR Midazolam HCl 50 ml @ 1 mls/hr Q24H IV 09/17/24 05:30 09/19/24 02:00 1 MLS/HR Vancomycin HCl 0 ml @ 0 mls/hr UD IV 09/17/24 10:00 Cefepime HCl 50 ml @ 12.5 mls/hr DAILY IV 09/17/24 10:00 09/20/24 09:00 12.5 MLS/HR Enteral Nutritional Formula 1,000 ml 30ML/HR GT 09/17/24 11:00 Dextrose 50 ml UD PRN IV 09/17/24 11:00 Cancel Fentanyl Citrate 250 ml @ 2.5 mls/hr Q24H IV 09/17/24 11:30 09/20/24 06:33 7.5 MLS/HR Diagnostic Test (Pha) 1 strip Q6HR 09/17/24 18:00 09/20/24 05:56 1 STRIP Insulin Human Regular Q6HR SC 09/17/24 18:00 09/20/24 05:55 4 UNITS Dextrose 50 ml UD PRN IV 09/17/24 15:30 Mupirocin 1 applic BID EACHNOSTRI 09/18/24 10:00 09/23/24 09:59 09/20/24 09:01 1 APPLIC Acetaminophen 650 mg Q4HP PRN PO 09/19/24 10:00 09/20/24 09:07 650 MG Furosemide 100 mg/ Sodium Chloride 110 ml @ 22 mls/hr Q5H IV 09/20/24 09:45 laboratory and microbiology Laboratory Tests 09/20/24 03:00 Test 09/20/24 03:00 Range/Units Serum Glucose 242 H 74-106 mg/dL Assessment/Plan 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 acute hypoxemic resp failure pneumonia CHF CASS events failed bipap intubated initiated on HD with fluid remova; CXR shows improvement still pulm edema hardware placed correctly vent settings peep 5 Fi02 35% management plan sedation holidays daily when awake cpap ps 7/5 abg /parameters extubate when ready continue supportive care abx diuresis/HD monitor labs renal function replace lytes nutrition prophylaxis full code crit care time 3 5 min Dietary Evaluation Review Comments: 1) Matthieu 1 pk daily (ordered per ONS protocol) 2) CCHO 75gm + cardiac 3) Refer Stencil Maker on DC 4) Continue current plan of care Expected Outcomes/Goals: To meet >75% estimated needs Fu 3-5 days Plan discussed with: Other (rn) MARCE SIMS MD Sep 20, 2024 10:29
[2024-09-20] MEDS: FUROSEMIDE INJECTION 100 MG in SODIUM CHL 0.9% 100 ML IV SCH (10:39)
[2024-09-20] MEDS: metOLazone 5 MG TAB PO ONE (10:43)
--- NOTE | 2024-09-20 11:37 | DVHPN2 ---
Progress Note Date Seen: Sep 20, 2024 Medical Necessity Reason Pt with a Central, PICC or Fol: No The following are medically ne: Xavier Catheter Subjective Patient reports: Other (intubated) Review of Systems: Deferred Objective vital signs Vital Sign Date Time Temp Pulse Resp B/P (MAP) Pulse Ox O2 Delivery O2 Flow Rate FiO2 09/20/24 10:43 120/51 09/20/24 10:40 98.0 09/20/24 10:00 94 20 97 35 09/20/24 08:00 Mechanical Ventilator+ Total Intake and Output 09/19/24 09/19/24 09/20/24 15:00 23:00 07:00 Intake Total 457.77 ml 528.27 ml 235.08 ml Output Total 1110 ml 1000 ml Balance 457.77 ml -581.73 ml -764.92 ml medications Current Medications Medications Dose Ordered Sig/Paramjit Route Start Time Stop Time Status Last Admin Dose Admin Levalbuterol HCl 1.25 mg Q6HR NEB 09/12/24 06:00 09/20/24 06:00 1.25 MG Ipratropium [place] 0.5 mg Q6HR NEB 09/12/24 06:00 09/20/24 06:00 0.5 MG Ondansetron HCl 4 mg Q4HPRN PRN IV 09/12/24 04:00 09/12/24 09:46 4 MG Pantoprazole Sodium 40 mg DAILY IV 09/13/24 10:00 09/20/24 09:00 40 MG Dopamine HCl/ Dextrose 250 ml @ 10.444 mls/ hr [id number] IV 09/16/24 10:30 09/20/24 10:40 10.444 MLS/HR Norepinephrine Bitartrate 250 ml @ 3.75 mls/hr Q24H IV 09/16/24 17:15 09/20/24 10:37 22.5 MLS/HR Midazolam HCl 50 ml @ 1 mls/hr Q24H IV 09/17/24 05:30 09/19/24 02:00 1 MLS/HR Vancomycin HCl 0 ml @ 0 mls/hr UD IV 09/17/24 10:00 Enteral Nutritional Formula 1,000 ml 30ML/HR GT 09/17/24 11:00 Dextrose 50 ml UD PRN IV 09/17/24 11:00 Cancel Fentanyl Citrate 250 ml @ 2.5 mls/hr Q24H IV 09/17/24 11:30 09/20/24 06:33 7.5 MLS/HR Diagnostic Test (Pha) 1 strip Q6HR 09/17/24 18:00 09/20/24 05:56 1 STRIP Insulin Human Regular Q6HR SC 09/17/24 18:00 09/20/24 05:55 4 UNITS Dextrose 50 ml UD PRN IV 09/17/24 15:30 Mupirocin 1 applic BID EACHNOSTRI 09/18/24 10:00 09/23/24 09:59 09/20/24 09:01 1 APPLIC Acetaminophen 650 mg Q4HP PRN PO 09/19/24 10:00 09/20/24 09:07 650 MG Furosemide 100 mg/ Sodium Chloride 110 ml @ 22 mls/hr Q5H IV 09/20/24 09:45 09/20/24 10:39 22 MLS/HR Cefepime HCl 50 ml @ 12.5 mls/hr Q12H IV 09/20/24 21:00 Examination: GENERAL:Abnormal, LUNGS:Abnormal, ABDOMEN:Abnormal, SKIN:Abnormal laboratory and microbiology Laboratory Tests 09/20/24 03:00 Test 09/20/24 03:00 Range/Units Serum Glucose 242 H 74-106 mg/dL Microbiology Date/Time Source Procedure Growth Status 09/17/24 08:45 Blood Blood Culture - Preliminary NO GROWTH AFTER 72 HOURS OF INCUBATION. 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 Diastolic heart failure with severe right-sided heart failure Acute respiratory failure HD today, continued and frequent treatment, will eval tomorrow if additional treatment required continue diuretics to maintain UOP Pressors to maintain mean arterial pressure greater than 65 Strict Is&Os Poor prognosis Critical care time spent 35 minutes Plan discussed with: Other My Orders My Orders Orders - QUAN MRIAMONTES MD Procedure Category Date Status Time Hemodialysis Orders ORDERS 09/20/24 Transmitted 07:00 Dialysis Nursing FRANCES 09/20/24 In Process Message 07:00 Document Fluid Input FRANCES 09/20/24 In Process And Outpu 07:00 Sodium Chl 0.9% PHA 09/20/24 In Process (So... W/Furosemide 09:45 Basic Metabolic Panel LAB 09/21/24 Verified 04:00 Dietary Evaluation Review Comments: 1) Matthieu 1 pk daily (ordered per ONS protocol) 2) CCHO 75gm + cardiac 3) Refer Benefits Officer on DC 4) Continue current plan of care Expected Outcomes/Goals: To meet >75% estimated needs Fu 3-5 days QUAN MIRAMONTES MD Sep 20, 2024 11:37
[2024-09-20] MEDS: VANCOMYCIN 500mg/100mL 100 ML IV ONE (18:00)
[2024-09-20 19:16] LABS: Chloride 100 mmol/L (98-107); Potassium 3.7 mmol/L (3.5-5.1); Sodium 139 mmol/L (136-145)
[2024-09-20 19:17] LABS: Anion Gap 14 (5-15); Carbon Dioxide 25 mmol/L (20-31)
[2024-09-20 19:18] LABS: Calcium 9.8 mg/dL (8.7-10.4)
--- NOTE | 2024-09-20 19:22 | DVHPN2 ---
Progress Note - Dictate Date Seen: Sep 20, 2024 Medical Necessity Reason Pt with a Central, PICC or Fol: No The following are medically ne: Xavier Catheter Subjective Patient was seen and evaluated in follow up in the ICU. Patient is intubated and sedated on ventilator. 35% FiO2. Patient is having intermittent episodes of tachycardia. WBC 16.8, BUN 42, WELL TREATMENT OFFSIDER 2.16, GLUC 240. Chest x-ray shows stable diffuse increased prominence of the pulmonary vasculature and likely small bilateral pleural effusions. Stable cardiomegaly. vital signs Vital Sign Date Time Temp Pulse Resp B/P (MAP) Pulse Ox O2 Delivery O2 Flow Rate FiO2 09/20/24 12:00 98 09/20/24 11:51 20 117/49 (71) 98 35 09/20/24 11:15 98.0 98.0 09/20/24 10:00 Mechanical Ventilator Total Intake and Output 09/19/24 09/19/24 09/20/24 15:00 23:00 07:00 Intake Total 457.77 ml 528.27 ml 343.02 ml Output Total 1110 ml 1000 ml Balance 457.77 ml -581.73 ml -656.98 ml medications Current Medications Medications Dose Ordered Sig/Paramjit Route Start Time Stop Time Status Last Admin Dose Admin Levalbuterol HCl 1.25 mg Q6HR NEB 09/12/24 06:00 09/20/24 11:51 1.25 MG Ipratropium [place] 0.5 mg Q6HR NEB 09/12/24 06:00 09/20/24 11:51 0.5 MG Ondansetron HCl 4 mg Q4HPRN PRN IV 09/12/24 04:00 09/12/24 09:46 4 MG Pantoprazole Sodium 40 mg DAILY IV 09/13/24 10:00 09/20/24 09:00 40 MG Dopamine HCl/ Dextrose 250 ml @ 10.444 mls/ hr [id number] IV 09/16/24 10:30 09/20/24 10:40 10.444 MLS/HR Norepinephrine Bitartrate 250 ml @ 3.75 mls/hr Q24H IV 09/16/24 17:15 09/20/24 10:37 22.5 MLS/HR Midazolam HCl 50 ml @ 1 mls/hr Q24H IV 09/17/24 05:30 09/19/24 02:00 1 MLS/HR Vancomycin HCl 0 ml @ 0 mls/hr UD IV 09/17/24 10:00 Enteral Nutritional Formula 1,000 ml 30ML/HR GT 09/17/24 11:00 Dextrose 50 ml UD PRN IV 09/17/24 11:00 Cancel Fentanyl Citrate 250 ml @ 2.5 mls/hr Q24H IV 09/17/24 11:30 09/20/24 06:33 7.5 MLS/HR Diagnostic Test (Pha) 1 strip Q6HR 09/17/24 18:00 09/20/24 05:56 1 STRIP Insulin Human Regular Q6HR SC 09/17/24 18:00 09/20/24 05:55 4 UNITS Dextrose 50 ml UD PRN IV 09/17/24 15:30 Mupirocin 1 applic BID EACHNOSTRI 09/18/24 10:00 09/23/24 09:59 09/20/24 09:01 1 APPLIC Acetaminophen 650 mg Q4HP PRN PO 09/19/24 10:00 09/20/24 09:07 650 MG Furosemide 100 mg/ Sodium Chloride 110 ml @ 22 mls/hr Q5H IV 09/20/24 09:45 09/20/24 10:39 22 MLS/HR Cefepime HCl 50 ml @ 12.5 mls/hr Q12H IV 09/20/24 21:00 objective GENERAL: Intubated on ventilator. EYES: PERRL, EOMI. Anicteric. HENT: Moist mucous membranes. LUNGS: breath sounds. CARDIOVASCULAR: Regular rate and rhythm. ABDOMEN: Soft, nontender and nondistended. Patient has a functioning colostomy bag noted to the right-sided abdomen. EXTREMITIES: Pitting edema in all extremities. Right AKA. SKIN: Warm, dry. laboratory and microbiology Laboratory Tests 09/20/24 03:00 Test 09/20/24 03:00 Range/Units Serum Glucose 242 H 74-106 mg/dL Problem List Acute on chronic hypoxic respiratory failure secondary to probable CHF exacerbation. Acute on chronic Moderately reduced congestive heart failure exacerbation-NYHA class 4. Pneumonia. AFib, rate controlled on Eliquis. COPD on 3 L home oxygen. Mild coronary artery disease. Sick sinus syndrome status post dual-chamber Biotronik pacemaker 2015. Obstructive apnea on CPAP. Acute cystitis. Diabetes mellitus type 2-A1c 6.4. ? CASS on CKD. Left-sided hydrocele. Anemia likely iron-deficiency. Secondary hypercoagulable state. History of left breast cancer status post surgery and tamoxifen therapy 2007. History of laparoscopic left radical nephrectomy 2013. History of colostomy 2019. Stage I decubitus sacral ulcer. Tunnel hemorrhoids. Diverticulosis. Assessment/Plan Continued all current supportive medical care. IV antibiotics as ordered. Dopamine drip. Diuretics with Lasix. GI prophylactics. Vasopressors for hemodynamic support. Additional plan as per the hospital course. Critical care time of 45 minutes provided to include time spent evaluation of patient at bedside, when appropriate patient/family education for diagnosis, treatment plan, review of pertinent medical information and discussion of care with specialty providers and PCP. Mechanical ventilator parameters, treatment and adjustments have personally been reviewed by me and treatment plan by acds block 1 operator has also been reviewed. Dietary Evaluation Review Comments: 1) Matthieu 1 pk daily (ordered per ONS protocol) 2) CCHO 75gm + cardiac 3) Refer Business Practices Officer on DC 4) Continue current plan of care Expected Outcomes/Goals: To meet >75% estimated needs Fu 3-5 days Plan discussed with: Other EVERTON SHELDON MD Sep 20, 2024 13:00
[2024-09-20 19:23] LABS: BUN/Creatinine Ratio 19.2 (10.0-20.0); Blood Urea Nitrogen 47 mg/dL (9-23); Glucose 272 mg/dL (74-106)
[2024-09-20] MEDS ORDERED: POTASSIUM CHL 20MEQ/100ML 100 ML IV SCH (20:00)
[2024-09-20] MEDS: POTASSIUM CHL 20MEQ/50ML 50 ML IV SCH (20:59)
[2024-09-20] MEDS: POTASSIUM CHL 20MEQ/50ML 100 ML IV ONE (21:00)
[2024-09-20] MEDS: CEFEPIME 1GM/ 50ML 50 ML IV SCH (22:15)
[2024-09-21] VITALS (108 sets, daily range): BP systolic 66–130; BP diastolic 28–66; PULSE 75–97; RESP 17–25; TEMP 97.7–100.5; O2SAT 85–99
[2024-09-21 04:11] LABS: Basophils # (auto) 0.1 10 ^3/uL (0-0.2); Basophils % (auto) 0.4 % (0.0-2.0); Hemoglobin 12.6 g/dL (13.5-17.5); Neutrophils % (auto) 88.3 % (37.0-80.0)
[2024-09-21 04:15] LABS: Eosinophils # (auto) 0.4 10 ^3/uL (0-0.8); Eosinophils % (auto) 2.7 % (0.0-7.0); Hematocrit 40.4 % (41.0-53.0); Lymphocytes # (auto) 0.4 10 ^3/uL (0.4-5.4); Lymphocytes % (auto) 2.5 % (10.0-50.0); Mean Corpuscular Hemoglobin 24.1 pg (28.0-32.0); Mean Corpuscular Hgb Conc. 31.1 g/dL (32.0-36.0); Mean Corpuscular Volume 77.4 fL (80.0-100.0); Monocytes % (auto) 6.1 % (0.0-12.0); Neutrophils # (auto) 14.1 10 ^3/uL (1.6-8.6); Platelet Count (auto) 118 10^3/uL (140-450); Red Blood Cells 5.22 10^6/uL (4.5-5.90); Red Cell Distribution Width 21.5 % (11.8-14.3); White Blood Cell 15.9 10^3/uL (4.4-10.8)
[2024-09-21 04:27] LABS: Anion Gap 12 (5-15); Carbon Dioxide 27 mmol/L (20-31); Chloride 100 mmol/L (98-107); Potassium 4.5 mmol/L (3.5-5.1); Sodium 139 mmol/L (136-145)
[2024-09-21 04:28] LABS: Calcium 9.5 mg/dL (8.7-10.4)
[2024-09-21 04:33] LABS: BUN/Creatinine Ratio 20.4 (10.0-20.0)
[2024-09-21 04:34] LABS: Blood Urea Nitrogen 53 mg/dL (9-23); Glucose 292 mg/dL (74-106)
--- NOTE | 2024-09-21 06:22 | DVH ---
CHEST RADIOGRAPH Indication: Intubated Technique: Single frontal view of the chest was obtained COMPARISON: XY CHEST XRAY 1 VIEW on DOS: 09/20/24, XY CHEST XRAY 1 VIEW on DOS: 09/19/24, XY CHEST PORT ABLE on DOS: 09/18/24, XY CHEST XRAY 1 VIEW on DOS: 09/18/24, XY CHEST PORTABLE on DOS: 09/17/24 FINDINGS: Lines and Tubes: Slight interval retraction of the endotracheal tube such that the endotracheal tube tip now projects approximately 3.6 cm above the level of the cristopher. Remaining lines and tubes unchan ged. Lungs: Moderate interval progression in diffuse increased prominence of the pulmonary vasculature wit h progressive opacification of both lungs. Bilateral pleural effusions are grossly stable in appearan ce, [id number]. No pneumothorax. Cardiomediastinal contours: Unremarkable Bones: Unremarkable IMPRESSION: 1. Interval progression in diffuse increased prominence of the pulmonary vasculature with otherwise s table appearing moderate left and small right pleural effusions. 2. Slight interval retraction of endotracheal tube as above. 3. Remaining lines and tubes unchanged.
[2024-09-21 06:56] LABS: Base Excess 3.6 mmol/L (-2.0-3.0)
--- NOTE | 2024-09-21 08:46 | DVHPN2 ---
Progress Note - Dictate Date Seen: Sep 21, 2024 Medical Necessity Reason Pt with a Central, PICC or Fol: No The following are medically ne: Xavier Catheter vital signs Vital Sign Date Time Temp Pulse Resp B/P (MAP) Pulse Ox O2 Delivery O2 Flow Rate FiO2 09/21/24 07:51 100.4 09/21/24 07:45 91 20 119/55 (76) 92 35 09/21/24 06:00 Mechanical Ventilator+ Total Intake and Output 09/20/24 09/20/24 09/21/24 15:00 23:00 07:00 Intake Total 606.02 ml 773.02 ml 558.27 ml Output Total 2400 ml 1530 ml Balance 606.02 ml -1626.98 ml -971.73 ml medications Current Medications Medications Dose Ordered Sig/Paramjit Route Start Time Stop Time Status Last Admin Dose Admin Levalbuterol HCl 1.25 mg Q6HR NEB 09/12/24 06:00 09/21/24 06:03 1.25 MG Ipratropium [place] 0.5 mg Q6HR NEB 09/12/24 06:00 09/21/24 06:03 0.5 MG Ondansetron HCl 4 mg Q4HPRN PRN IV 09/12/24 04:00 09/12/24 09:46 4 MG Pantoprazole Sodium 40 mg DAILY IV 09/13/24 10:00 09/20/24 09:00 40 MG Dopamine HCl/ Dextrose 250 ml @ 10.444 mls/ hr [id number] IV 09/16/24 10:30 09/20/24 10:40 10.444 MLS/HR Norepinephrine Bitartrate 250 ml @ 3.75 mls/hr Q24H IV 09/16/24 17:15 09/21/24 00:05 11.25 MLS/HR Midazolam HCl 50 ml @ 1 mls/hr Q24H IV 09/17/24 05:30 09/19/24 02:00 1 MLS/HR Vancomycin HCl 0 ml @ 0 mls/hr UD IV 09/17/24 10:00 Enteral Nutritional Formula 1,000 ml 30ML/HR GT 09/17/24 11:00 Dextrose 50 ml UD PRN IV 09/17/24 11:00 Cancel Fentanyl Citrate 250 ml @ 2.5 mls/hr Q24H IV 09/17/24 11:30 09/20/24 06:33 7.5 MLS/HR Diagnostic Test (Pha) 1 strip Q6HR 09/17/24 18:00 09/21/24 06:37 1 STRIP Insulin Human Regular Q6HR SC 09/17/24 18:00 09/21/24 06:38 6 UNITS Dextrose 50 ml UD PRN IV 09/17/24 15:30 Mupirocin 1 applic BID EACHNOSTRI 09/18/24 10:00 09/23/24 09:59 09/20/24 22:17 1 APPLIC Acetaminophen 650 mg Q4HP PRN PO 09/19/24 10:00 09/21/24 07:51 650 MG Furosemide 100 mg/ Sodium Chloride 110 ml @ 22 mls/hr Q5H IV 09/20/24 09:45 09/21/24 06:36 22 MLS/HR Cefepime HCl 50 ml @ 12.5 mls/hr Q12H IV 09/20/24 21:00 09/20/24 22:15 12.5 MLS/HR laboratory and microbiology Laboratory Tests 09/21/24 03:05 Test 09/21/24 03:05 Range/Units Serum Glucose 292 H 74-106 mg/dL Assessment/Plan foreign language stenographer rounds 79 yo male acute hypoxemic resp failure pneumonia CHF CASS events intubated for pulmonary edema on lasix drip f/up with nephro may need HD vent settings peep 5 Fi02 35% management plan sedation holidays daily when awake cpap ps 7/5 abg /parameters extubate when ready continue supportive care abx diuresis/HD monitor labs renal function replace lytes nutrition prophylaxis full code crit care time 3 5 min Dietary Evaluation Review Comments: 1) Matthieu 1 pk daily (ordered per ONS protocol) 2) CCHO 75gm + cardiac 3) Refer Bill Recapitulation Clerk on DC 4) Continue current plan of care Expected Outcomes/Goals: To meet >75% estimated needs Fu 3-5 days Plan discussed with: Other (rn) MARCE SIMS MD Sep 21, 2024 08:46
--- NOTE | 2024-09-21 09:19 | DVHPN2 ---
Subjective Mr. 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 Ortiz, ANA MARIA on CPAP, left breast cancer status post surgery on tamoxifen 1999 and, left nephrectomy due to left renal mass 2013, colostomy 2018, internal hemorrhoids, diverticulosis who presents to the ER with a chief complaint of shortness of breaths and generalized edema for the past 2 weeks. Patient reports that he has chronic cough which recently worsened 2 weeks back and became productive with yellowish phlegm following which he got short of breath and orthopneic associated with generalized weakness, body aches and fatigue. Also reported nausea but no vomiting or chest pain. He says that he is compliant with his Lasix 20 mg b.i.d.. Patient increased his oxygen from 3.5-4 L and started taking nebulized treatments which did improve him for the time being. He did not increases intake of inhalers which he takes b.i.d.. Initial lab workup revealed neutrophilia 83.2%, MCV 78.4, RDW 21.1, serum creatinine 2.03, BUN 36, HGB A1c 6.4, iron 27, ferritin 19.8, bilirubin 1.3, BNP 311, UDS negative, COVID and flu negative, urinalysis leukocyte esterase 3+, WBC 29, bacteria many. CXR- Pulmonary edema. Mild bibasilar subsegmental atelectasis/consolidation. Ultrasound of the testicle-Large hydrocele left scrotum with a heterogeneous nodule measuring a cm in size fixed to the anterior wall of the Hydrocele. Arterial Doppler of the lower extremity revealed-Multifocal tandem atherosclerotic plaque noted throughout the bilateral lower extremity arteries. Bilateral lower extremity Doppler study negative for DVT. Renal ultrasound revealed-Right renal cortical thinning and increased echotexture suggestive of medical renal disease.Status post left nephrectomy. Patient had a left heart catheterization in [address] TEE which showed mild CAD Last colonoscopy 2022 Last echo December 2023 showed EF 45% He was last admitted at this facility in January 2024 for acute respiratory failure with sepsis secondary to infected sacral ulcer with Pseudomonas and MRSA and Proteus. Past medical surgical history: See above Social history: Patient is nonambulatory. 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 Quit smoking in 1999 does not drink, denies illicit drug use. Lives with and daughter Patient seen and examined at the bedside. Currently saturating 94 on 5 L NC supplementation. Lasix dose 60 mg IV push was given by the ER. Continue 40 mg TID. Smoke: Quit ALCOHOL: none Drugs: None Lives: with Family Patient was seen today for clinical evaluation. patient in ICU. ventilated and sedated. Labs and chart reviewed. Reviewed: H&P Changes from previous H/P or p: No Changes General: Per HPI Objective Vitals Vital Signs Date Time Temp Pulse Resp B/P (MAP) Pulse Ox O2 Delivery O2 Flow Rate FiO2 09/21/24 09:00 91 20 103/58 (73) 97 09/21/24 08:56 35 09/21/24 08:00 Mechanical Ventilator+ 09/21/24 08:00 100.4 100.4 Intake/Output Intake and Output 09/21/24 07:00 Intake Total 1937.31 ml Output Total 3930 ml Balance -1992.69 ml Intake Oral 180 ml IV Total 1511.31 ml Tube Feeding 246 ml Output Urine Total 3900 ml Stool Total 0 ml Urine/Stool Mix 30 ml Exam Constitutional: Patient is on mechanical ventilation and sedated with a RASS -4 Gen - no pallor, no icterus, no cyanosis, no clubbing Skin - Patients skin is warm and dry.. Skin of the left lower extremity below the knee is mottled with poor blood supply and cold limb HEENT - normocephalic, atraumatic, moist mucous membranes. Neck - full ROM, no LAD, JVD could not be assessed Pulmonary - B/L diminished breath sounds, no wheezing, no stridor. cardiovascular - variable S1,S2 heard, no added sounds no murmurs heard. GI - soft abdomen. no hepatospleenomegaly. Bowel sounds normoactive extremities- right LE AKA with 2+ edema, left LE with mottled appearacne and cold with very weak pulse Neurological - patient was sedated and on mechanical ventilation, gag reflex present, pupils anisocoric but sluggishly reactive Medications Current Medications Medications Dose Ordered Sig/Paramjit Route Start Time Stop Time Status Last Admin Dose Admin Levalbuterol HCl 1.25 mg Q6HR NEB 09/12/24 06:00 09/21/24 06:03 1.25 MG Ipratropium [place] 0.5 mg Q6HR NEB 09/12/24 06:00 09/21/24 06:03 0.5 MG Ondansetron HCl 4 mg Q4HPRN PRN IV 09/12/24 04:00 09/12/24 09:46 4 MG Pantoprazole Sodium 40 mg DAILY IV 09/13/24 10:00 09/20/24 09:00 40 MG Dopamine HCl/ Dextrose 250 ml @ 10.444 mls/ hr [id number] IV 09/16/24 10:30 09/20/24 10:40 10.444 MLS/HR Norepinephrine Bitartrate 250 ml @ 3.75 mls/hr Q24H IV 09/16/24 17:15 09/21/24 00:05 11.25 MLS/HR Midazolam HCl 50 ml @ 1 mls/hr Q24H IV 09/17/24 05:30 09/19/24 02:00 1 MLS/HR Vancomycin HCl 0 ml @ 0 mls/hr UD IV 09/17/24 10:00 Enteral Nutritional Formula 1,000 ml 30ML/HR GT 09/17/24 11:00 Dextrose 50 ml UD PRN IV 09/17/24 11:00 Cancel Fentanyl Citrate 250 ml @ 2.5 mls/hr Q24H IV 09/17/24 11:30 09/20/24 06:33 7.5 MLS/HR Diagnostic Test (Pha) 1 strip Q6HR 09/17/24 18:00 09/21/24 06:37 1 STRIP Insulin Human Regular Q6HR SC 09/17/24 18:00 09/21/24 06:38 6 UNITS Dextrose 50 ml UD PRN IV 09/17/24 15:30 Mupirocin 1 applic BID EACHNOSTRI 09/18/24 10:00 09/23/24 09:59 09/20/24 22:17 1 APPLIC Acetaminophen 650 mg Q4HP PRN PO 09/19/24 10:00 09/21/24 07:51 650 MG Furosemide 100 mg/ Sodium Chloride 110 ml @ 22 mls/hr Q5H IV 09/20/24 09:45 09/21/24 06:36 22 MLS/HR Cefepime HCl 50 ml @ 12.5 mls/hr Q12H IV 09/20/24 21:00 09/20/24 22:15 12.5 MLS/HR Laboratory Results Laboratory Tests 09/21/24 03:05 Chemistry Test 09/20/24 17:45 09/21/24 03:05 Calcium Level 9.8 mg/dL (8.7-10.4) 9.5 mg/dL (8.7-10.4) Urinalysis Test 09/11/24 23:15 09/14/24 22:12 09/15/24 13:45 Urine Color Light-yellow (Yellow) Urine Clarity Clear (Clear) Urine pH 5.0 (5.0-9.0) Urine Specific [place] 1.011 (1.001-1.035) Urine Protein Negative (Negative) Urine Ketones Negative (Negative) Urine Blood Negative /uL (Negative) Urine Nitrite Negative (Negative) Urine Bilirubin Negative (Negative) Urine Urobilinogen Normal mg/dL (Negative) Urine Leukocyte Esterase 3+ /uL (Negative) Urine RBC 1 /hpf (0 - 3) Urine Microscopic WBC 29 /HPF (0-3) H Urine Squamous Epithelial Cells None seen /hpf (<5) Urine Bacteria Many /hpf (None Seen) H Urine Protein/Creatinine Ratio 0.31 Urine Glucose Normal mg/dL (Normal) Urine Total Protein 87.7 mg/dL (1-14) H Urine Creatinine 141.86 mg/dL (30.0-125.0) H Urine Sodium 11 mmol/L (40-220) L Blood Gas Results Test 09/21/24 06:51 Arterial Blood pH 7.527 (7.350-7.450) FiO2 % 35.0 Microbiology Microbiology Date/Time Source Procedure Growth Status 09/19/24 18:14 Urine - [place] Urine Culture - Preliminary Resulted 09/17/24 08:45 Blood Blood Culture - Preliminary NO GROWTH AFTER 72 HOURS OF INCUBATION. Resulted 09/17/24 05:11 Sputum Gram Stain - Final Complete 09/17/24 05:11 Respiratory Culture - Final Methicillin Resistant S.aureus Complete 09/16/24 19:55 Nose MRSA Screen - Final Methicillin Resistant S.aureus Complete Labs and/or images reviewed: Labs reviewed by me, Image(s) reviewed by me Assessment/Plan Assessment/Plan update 09/20- patient in icu. getting HD. sedated ventilated. Vent settings are A/C 500/20/5/35%, ABG stable. Drips include Levophed 12, dopamine 2.5, Lasix 11, faint 50. Nephrology managing diuresis. no significant changes today. urine light strawcolor in mallory. will hold off sedation trial/cpap trials (sat/sbt) today. 09/21 patient remains ICU status. Nephrology started IV diuresis yesterday making good urine, holding off HD right now. Failed CPAP trial this a.m. we will try again tomorrow. Reason for filling CPAP was patient had multiple apneic episodes. This is indicating poor prognosis.? This may be because patient's renal function is suboptimal maybe patient needs more time for the sedatives to clinical system, but still concerning and poor prognosis. Continuing ventilation a/C 50/16/7/30%, patient breathing at 21.. On Levophed 6 dopamine 2.5, Lasix 2.2, fentanyl,.. Continue IV antibiotics. Patient had fever 100.4, Tylenol was given. Low-grade and 1 time fever, we will hold off doing blood culture right now. Patient was pending vascular eval for left leg which ultrasound shows poor flow. We will continue primary team's care plan, appreciate pulmonology and Nephrology. Continue present treatment. Neurology Acute metabolic encephalopathy likely due to hypercapnia - on mechanical ventilation - RASS -4 Respiratory Acute on chronic hypercarbic respiratory failure COPD ?Pneumonia likely due to Gram +/-bacteria Severe pulmonary hypertension Obstructive sleep apnea - on mechanical ventilation - DuoNebs q.6 hours - sputum culture showing possible growth of MRSA - IV antibiotics vancomycin and cefepime Cardiovascular Shock likely due to sepsis, cultures pending Acute on chronic heart failure with a reduced ejection fraction NYHA class 4 Paroxysmal atrial fibrillation , sick sinus syndrome with a dual-chamber pacemaker Coronary artery disease (coronary angiogram in 2020) Severe pulmonary hypertension with RV hypokinesis Peripheral artery disease with right above-knee amputation - on vasopressors with norepinephrine - on Lasix drip at 10 milligram/hour but urine output is not adequate and patient will likely need dialysis - anticoagulation held as the patient had gross hematuria 2 days ago and platelets are going down Nephrology CASS 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 - BUN creatinine improving - urine output noted but not adequate to the Lasix dosage - on HD, removed 2.5L on 09/18, and 2.5L 09/19 - nephrology on board Infectious disease Septic shock likely due to UTI versus pneumonia UTI growing E coli - cultures repeated as the white count was increasing, patient was tachycardic - no wounds noted - on IV vancomycin and cefepime Gastroenterology S/p diversion colostomy Left femoral central venous catheter placed on 09/17 Right IJV therese catheter placed on 09/18 Mallory's catheter Diet: Via NG tube PUD prophylaxis: Protonix DVT prophylaxis: Anticoagulation held because of hematuria 2 days ago, platelets trending down Goals of care discussed with the patient was family over 27 minutes. Code status: Full code time 21 minutes Critical care time spent excluding procedures: 51 minutes Plan discussed with: Patient Date of Service: Sep 21, 2024 Billing Provider: YOLANDA ROBERTS MD Common Visit Codes: 80824-[id number] CARE 30-74 MIN YOLANDA ROBERTS MD Sep 21, 2024 09:19
--- NOTE | 2024-09-21 12:00 | DVHPN2 ---
Progress Note Date Seen: Sep 21, 2024 Medical Necessity Reason Pt with a Central, PICC or Fol: No The following are medically ne: Xavier Catheter Subjective Patient reports: Other (intubated) Review of Systems: Deferred Objective vital signs Vital Sign Date Time Temp Pulse Resp B/P (MAP) Pulse Ox O2 Delivery O2 Flow Rate FiO2 09/21/24 11:28 88 20 117/66 (83) 96 35 09/21/24 10:00 Mechanical Ventilator 09/21/24 09:15 100.5 100.5 Total Intake and Output 09/20/24 09/20/24 09/21/24 15:00 23:00 07:00 Intake Total 606.02 ml 773.02 ml 558.27 ml Output Total 2400 ml 1530 ml Balance 606.02 ml -1626.98 ml -971.73 ml medications Current Medications Medications Dose Ordered Sig/Paramjit Route Start Time Stop Time Status Last Admin Dose Admin Levalbuterol HCl 1.25 mg Q6HR NEB 09/12/24 06:00 09/21/24 11:28 1.25 MG Ipratropium [place] 0.5 mg Q6HR NEB 09/12/24 06:00 09/21/24 11:28 0.5 MG Ondansetron HCl 4 mg Q4HPRN PRN IV 09/12/24 04:00 09/12/24 09:46 4 MG Pantoprazole Sodium 40 mg DAILY IV 09/13/24 10:00 09/21/24 09:14 40 MG Dopamine HCl/ Dextrose 250 ml @ 10.444 mls/ hr [id number] IV 09/16/24 10:30 09/20/24 10:40 10.444 MLS/HR Norepinephrine Bitartrate 250 ml @ 3.75 mls/hr Q24H IV 09/16/24 17:15 09/21/24 00:05 11.25 MLS/HR Midazolam HCl 50 ml @ 1 mls/hr Q24H IV 09/17/24 05:30 09/19/24 02:00 1 MLS/HR Vancomycin HCl 0 ml @ 0 mls/hr UD IV 09/17/24 10:00 Enteral Nutritional Formula 1,000 ml 30ML/HR GT 09/17/24 11:00 Dextrose 50 ml UD PRN IV 09/17/24 11:00 Cancel Fentanyl Citrate 250 ml @ 2.5 mls/hr Q24H IV 09/17/24 11:30 09/20/24 06:33 7.5 MLS/HR Diagnostic Test (Pha) 1 strip Q6HR 09/17/24 18:00 09/21/24 11:18 1 STRIP Insulin Human Regular Q6HR SC 09/17/24 18:00 09/21/24 11:20 8 UNITS Dextrose 50 ml UD PRN IV 09/17/24 15:30 Mupirocin 1 applic BID EACHNOSTRI 09/18/24 10:00 09/23/24 09:59 09/21/24 09:15 1 APPLIC Acetaminophen 650 mg Q4HP PRN PO 09/19/24 10:00 09/21/24 07:51 650 MG Furosemide 100 mg/ Sodium Chloride 110 ml @ 22 mls/hr Q5H IV 09/20/24 09:45 09/21/24 11:24 22 MLS/HR Cefepime HCl 50 ml @ 12.5 mls/hr Q12H IV 09/20/24 21:00 09/21/24 09:14 12.5 MLS/HR Examination: GENERAL:Abnormal, LUNGS:Abnormal, CVS:Abnormal, ABDOMEN:Abnormal, SKIN:Abnormal laboratory and microbiology Laboratory Tests 09/21/24 03:05 Test 09/21/24 03:05 Range/Units Serum Glucose 292 H 74-106 mg/dL Microbiology Date/Time Source Procedure Growth Status 09/19/24 18:14 Urine - [place] Urine Culture - Preliminary Resulted 09/17/24 08:45 Blood Blood Culture - Preliminary NO GROWTH AFTER 72 HOURS OF INCUBATION. 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 Diastolic heart failure with severe right-sided heart failure Acute respiratory failure hold off HD, continue diuretics, produced 2L UOP monitor daily continue diuretics to maintain UOP, add metolazone Pressors to maintain mean arterial pressure greater than 65 Strict Is&Os Poor prognosis Critical care time spent 35 minutes Plan discussed with: Other My Orders My Orders Orders - QUAN MIRAMONTES MD Procedure Category Date Status Time Communication Order ORDERS 09/20/24 Transmitted 18:55 Dietary Evaluation Review Comments: 1) Matthieu 1 pk daily (ordered per ONS protocol) 2) CCHO 75gm + cardiac 3) Refer Marine Firefighter on DC 4) Continue current plan of care Expected Outcomes/Goals: To meet >75% estimated needs Fu 3-5 days QUAN MIRAMONTES MD Sep 21, 2024 12:00
[2024-09-21] MEDS: NOREPINEPHRINE BITARTRATE 32 MG in SODIUM CHL 0.9% 218 ML IV SCH (13:21)
[2024-09-21] MEDS: metOLazone 5 MG TAB PO SCH (13:21)
[2024-09-21] MEDS: Glucerna 1.2 Cal 1Liter BOTTLE GT SCH (19:08)
--- NOTE | 2024-09-21 23:27 | DVHPN2 ---
Progress Note - Dictate Date Seen: Sep 21, 2024 Medical Necessity Reason Pt with a Central, PICC or Fol: No The following are medically ne: Xavier Catheter Subjective Patient was seen and evaluated in follow up in the ICU. Patient is intubated on ventilator. 35% FiO2. Patient is off sedation. Patient failed CPAP trial due to becoming apneic and not following commands. WBC 15.9, BUN 53, GRADE FOREMAN 2.60, GLUC 304. Chest x-ray shows interval progression in diffuse increased prominence of the pulmonary vasculature with otherwise stable appearing moderate left and small right pleural effusions. vital signs Vital Sign Date Time Temp Pulse Resp B/P (MAP) Pulse Ox O2 Delivery O2 Flow Rate FiO2 09/21/24 15:30 85 20 105/47 (66) 98 09/21/24 15:15 99.1 99.1 09/21/24 14:00 Mechanical Ventilator+ 35 35 Total Intake and Output 09/20/24 09/20/24 09/21/24 15:00 23:00 07:00 Intake Total 606.02 ml 773.02 ml 558.27 ml Output Total 2400 ml 1530 ml Balance 606.02 ml -1626.98 ml -971.73 ml medications Current Medications Medications Dose Ordered Sig/Paramjit Route Start Time Stop Time Status Last Admin Dose Admin Levalbuterol HCl 1.25 mg Q6HR NEB 09/12/24 06:00 09/21/24 11:28 1.25 MG Ipratropium [place] 0.5 mg Q6HR NEB 09/12/24 06:00 09/21/24 11:28 0.5 MG Ondansetron HCl 4 mg Q4HPRN PRN IV 09/12/24 04:00 09/12/24 09:46 4 MG Pantoprazole Sodium 40 mg DAILY IV 09/13/24 10:00 09/21/24 09:14 40 MG Dopamine HCl/ Dextrose 250 ml @ 10.444 mls/ hr [id number] IV 09/16/24 10:30 09/21/24 12:05 10.444 MLS/HR Midazolam HCl 50 ml @ 1 mls/hr Q24H IV 09/17/24 05:30 09/19/24 02:00 1 MLS/HR Vancomycin HCl 0 ml @ 0 mls/hr UD IV 09/17/24 10:00 Enteral Nutritional Formula 1,000 ml 30ML/HR GT 09/17/24 11:00 Dextrose 50 ml UD PRN IV 09/17/24 11:00 Cancel Fentanyl Citrate 250 ml @ 2.5 mls/hr Q24H IV 09/17/24 11:30 09/20/24 06:33 7.5 MLS/HR Diagnostic Test (Pha) 1 strip Q6HR 09/17/24 18:00 09/21/24 11:18 1 STRIP Insulin Human Regular Q6HR SC 09/17/24 18:00 09/21/24 11:20 8 UNITS Dextrose 50 ml UD PRN IV 09/17/24 15:30 Mupirocin 1 applic BID EACHNOSTRI 09/18/24 10:00 09/23/24 09:59 09/21/24 09:15 1 APPLIC Acetaminophen 650 mg Q4HP PRN PO 09/19/24 10:00 09/21/24 07:51 650 MG Furosemide 100 mg/ Sodium Chloride 110 ml @ 22 mls/hr Q5H IV 09/20/24 09:45 09/21/24 11:24 22 MLS/HR Cefepime HCl 50 ml @ 12.5 mls/hr Q12H IV 09/20/24 21:00 09/21/24 09:14 12.5 MLS/HR Metolazone 15 mg DAILY PO 09/21/24 12:15 09/21/24 13:21 15 MG Norepinephrine Bitartrate 32 mg/ Sodium Chloride 250 ml @ 0.938 mls/ hr Q24H IV 09/21/24 12:15 09/21/24 13:21 1.875 MLS/HR objective GENERAL: Intubated on ventilator. EYES: PERRL, EOMI. Anicteric. HENT: Moist mucous membranes. LUNGS: breath sounds. CARDIOVASCULAR: Regular rate and rhythm. ABDOMEN: Soft, nontender and nondistended. Patient has a functioning colostomy bag noted to the right-sided abdomen. EXTREMITIES: Pitting edema in all extremities. Right AKA. SKIN: Warm, dry. laboratory and microbiology Laboratory Tests 09/21/24 03:05 Test 09/21/24 03:05 Range/Units Serum Glucose 292 H 74-106 mg/dL Problem List Acute on chronic hypoxic respiratory failure secondary to probable CHF exacerbation. Acute on chronic Moderately reduced congestive heart failure exacerbation-NYHA class 4. Pneumonia. AFib, rate controlled on Eliquis. COPD on 3 L home oxygen. Mild coronary artery disease. Sick sinus syndrome status post dual-chamber Biotronik pacemaker 2016. Obstructive apnea on CPAP. Acute cystitis. Diabetes mellitus type 2-A1c 6.4. ? CASS on CKD. Left-sided hydrocele. Anemia likely iron-deficiency. Secondary hypercoagulable state. History of left breast cancer status post surgery and tamoxifen therapy 2007. History of laparoscopic left radical nephrectomy 2013. History of colostomy 2019. Stage I decubitus sacral ulcer. Tunnel hemorrhoids. Diverticulosis. Assessment/Plan Continued all current supportive medical care. IV antibiotics as ordered. Dopamine drip. Diuretics with Lasix. GI prophylactics. Vasopressors for hemodynamic support. Additional plan as per the hospital course. Critical care time of 45 minutes provided to include time spent evaluation of patient at bedside, when appropriate patient/family education for diagnosis, treatment plan, review of pertinent medical information and discussion of care with specialty providers and PCP. Mechanical ventilator parameters, treatment and adjustments have personally been reviewed by me and treatment plan by gas pumper has also been reviewed. Dietary Evaluation Review Comments: 1) Matthieu 1 pk daily (ordered per ONS protocol) 2) CCHO 75gm + cardiac 3) Refer Estimator And Drafter Supervisor on DC 4) Continue current plan of care Expected Outcomes/Goals: To meet >75% estimated needs Fu 3-5 days Plan discussed with: Other EVERTON SHELDON MD Sep 21, 2024 15:41
[2024-09-22] VITALS (110 sets, daily range): BP systolic 69–153; BP diastolic 36–83; PULSE 73–99; RESP 17–24; TEMP 97.7–99.2; O2SAT 93–100
[2024-09-22 04:01] LABS: Basophils # (auto) 0 10 ^3/uL (0-0.2); Basophils % (auto) 0.2 % (0.0-2.0); Eosinophils # (auto) 0.4 10 ^3/uL (0-0.8); Lymphocytes # (auto) 0.5 10 ^3/uL (0.4-5.4); Platelet Count (auto) 136 10^3/uL (140-450)
[2024-09-22 04:04] LABS: Eosinophils % (auto) 2.3 % (0.0-7.0); Hematocrit 41.3 % (41.0-53.0); Hemoglobin 13.1 g/dL (13.5-17.5); Lymphocytes % (auto) 2.6 % (10.0-50.0); Mean Corpuscular Hemoglobin 24.1 pg (28.0-32.0); Mean Corpuscular Hgb Conc. 31.8 g/dL (32.0-36.0); Mean Corpuscular Volume 75.9 fL (80.0-100.0); Monocytes # (auto) 1.1 10 ^3/uL (0-1.3); Monocytes % (auto) 6.5 % (0.0-12.0); Neutrophils # (auto) 15.5 10 ^3/uL (1.6-8.6); Neutrophils % (auto) 88.4 % (37.0-80.0); Red Blood Cells 5.44 10^6/uL (4.5-5.90); Red Cell Distribution Width 21.8 % (11.8-14.3); White Blood Cell 17.5 10^3/uL (4.4-10.8)
[2024-09-22 04:16] LABS: Alanine Aminotransferase 13 U/L (7-40); Alkaline Phosphatase 66 U/L (46-116); Anion Gap 14 (5-15); BUN/Creatinine Ratio 21.9 (10.0-20.0); Calcium 10.3 mg/dL (8.7-10.4); Carbon Dioxide 28 mmol/L (20-31); Potassium 3.5 mmol/L (3.5-5.1); Sodium 139 mmol/L (136-145); Total Protein 6.2 g/dL (5.7-8.2)
[2024-09-22 04:17] LABS: Albumin 3.9 g/dL (3.2-4.8); Aspartate Aminotransferase 16 U/L (13-40)
[2024-09-22 04:22] LABS: Bilirubin, Total 2.2 mg/dL (0.2-1.0); Blood Urea Nitrogen 60 mg/dL (9-23); Chloride 97 mmol/L (98-107); Glucose 339 mg/dL (74-106)
[2024-09-22] MEDS: POTASSIUM CHL 20MEQ/50ML 50 ML IV SCH (05:00)
[2024-09-22] MEDS ORDERED: DEXTROSE (50%) 50ML SYRG IV PRN (07:00)
[2024-09-22] MEDS: ACCU-CHEK COMFORT CURVE STRIP VI SCH (11:23)
[2024-09-22] MEDS: InsuLIN REG 1unit/0.01ml Soln (100units/ml) SC SCH (11:26)
--- NOTE | 2024-09-22 11:54 | DVH ---
CHEST RADIOGRAPH Indication: improved/worsen pulmonary edema and left pl eff , on vent Technique: Single frontal view of the chest was obtained Comparison: XY CHEST PORTABLE on DOS: 09/21/24, XY CHEST XRAY 1 VIEW on DOS: 09/20/24, XY CHEST XRAY 1 VIEW on DOS: 09/19/24, XY CHEST PORTABLE on DOS: 09/18/24, XY CHEST XRAY 1 VIEW on DOS: 09/18/24, XY YODIT ST PORTABLE on DOS: 09/21/24 FINDINGS: Lines and Tubes: Slight interval retraction of the endotracheal tube such that the endotracheal tube tip now projects approximately 3.6 cm above the level of the cristopher. Remaining lines and tubes unchan ged. Lungs: Moderate interval progression in diffuse increased prominence of the pulmonary vasculature wit h progressive opacification of both lungs. Bilateral pleural effusions are grossly stable in appearan ce, [id number]. No pneumothorax. Cardiomediastinal contours: Unremarkable Bones: Unremarkable IMPRESSION: 1. Interval progression in diffuse increased prominence of the pulmonary vasculature with otherwise s table appearing moderate left and small right pleural effusions. 2. Slight interval retraction of endotracheal tube as above. 3. Remaining lines and tubes unchanged.
[2024-09-22] MEDS: VANCOMYCIN 500mg/100mL 100 ML IV ONE (13:28)
--- NOTE | 2024-09-22 13:47 | DVHPN2 ---
Progress Note Date Seen: Sep 22, 2024 Medical Necessity Reason Pt with a Central, PICC or Fol: No The following are medically ne: Xavier Catheter Subjective Patient reports: Other Review of Systems: Deferred Objective vital signs Vital Sign Date Time Temp Pulse Resp B/P (MAP) Pulse Ox O2 Delivery O2 Flow Rate FiO2 09/22/24 13:23 85 18 121/59 (79) 94 30 09/22/24 11:15 98.6 98.6 09/22/24 10:00 Mechanical Ventilator+ Total Intake and Output 09/21/24 09/21/24 09/22/24 15:00 23:00 07:00 Intake Total 390.802 ml 372.115 ml 391.053 ml Output Total 2350 ml 1830 ml Balance 390.802 ml -1977.885 ml -1438.947 ml medications Current Medications Medications Dose Ordered Sig/Paramjit Route Start Time Stop Time Status Last Admin Dose Admin Levalbuterol HCl 1.25 mg Q6HR NEB 09/12/24 06:00 09/22/24 11:09 1.25 MG Ipratropium [place] 0.5 mg Q6HR NEB 09/12/24 06:00 09/22/24 11:09 0.5 MG Ondansetron HCl 4 mg Q4HPRN PRN IV 09/12/24 04:00 09/12/24 09:46 4 MG Pantoprazole Sodium 40 mg DAILY IV 09/13/24 10:00 09/22/24 08:55 40 MG Dopamine HCl/ Dextrose 250 ml @ 10.444 mls/ hr [id number] IV 09/16/24 10:30 09/21/24 12:05 10.444 MLS/HR Midazolam HCl 50 ml @ 1 mls/hr Q24H IV 09/17/24 05:30 09/19/24 02:00 1 MLS/HR Vancomycin HCl 0 ml @ 0 mls/hr UD IV 09/17/24 10:00 Enteral Nutritional Formula 1,000 ml 30ML/HR GT 09/17/24 11:00 09/21/24 19:08 1,000 ML Dextrose 50 ml UD PRN IV 09/17/24 11:00 Cancel Fentanyl Citrate 250 ml @ 2.5 mls/hr Q24H IV 09/17/24 11:30 09/20/24 06:33 7.5 MLS/HR Mupirocin 1 applic BID EACHNOSTRI 09/18/24 10:00 09/23/24 09:59 09/22/24 08:55 1 APPLIC Acetaminophen 650 mg Q4HP PRN PO 09/19/24 10:00 09/21/24 07:51 650 MG Metolazone 15 mg DAILY PO 09/21/24 12:15 09/22/24 10:09 15 MG Norepinephrine Bitartrate 32 mg/ Sodium Chloride 250 ml @ 0.938 mls/ hr Q24H IV 09/21/24 12:15 09/21/24 13:21 1.875 MLS/HR Diagnostic Test (Pha) 1 strip Q6HR 09/22/24 12:00 09/22/24 11:23 1 STRIP Insulin Human Regular Q6HR SC 09/22/24 12:00 09/22/24 11:26 9 UNITS Dextrose 50 ml UD PRN IV 09/22/24 07:00 Cefepime HCl 50 ml @ 12.5 mls/hr DAILY@0900 IV 09/23/24 09:00 Furosemide 100 mg/ Sodium Chloride 110 ml @ 11 mls/hr Q10H IV 09/22/24 13:45 UNV Examination: MSK:Abnormal (bka), SKIN:Abnormal, NEURO:Abnormal laboratory and microbiology Laboratory Tests 09/22/24 03:13 Test 09/22/24 03:13 Range/Units Serum Glucose 339 H 74-106 mg/dL Microbiology Date/Time Source Procedure Growth Status 09/19/24 18:14 Urine - [place] Urine Culture - Final Complete 09/17/24 08:45 Blood Blood Culture - Final NO GROWTH AFTER 5 DAYS OF INCUBATION. 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 W/Furosemide 13:45 Dietary Evaluation Review Comments: 1) Matthieu 1 pk daily (ordered per ONS protocol) 2) CCHO 75gm + cardiac 3) Refer Salesperson [employer] on DC 4) Continue current plan of care Expected Outcomes/Goals: To meet >75% estimated needs Fu 3-5 days KILEY MARTINEZ MD Sep 22, 2024 13:46
[2024-09-22] MEDS: FUROSEMIDE INJECTION 100 MG in SODIUM CHL 0.9% 100 ML IV SCH (14:06)
--- NOTE | 2024-09-22 17:31 | DVHPNRES ---
Progress Note Date Seen: Sep 22, 2024 Resident Creating Document: SEBAS LALAN RESIDENT Medical Necessity Reason Pt with a Central, PICC or Fol: No The following are medically ne: Central Line, Xavier Catheter Subjective Review of Systems Patient was a 79-year-old male with a past medical history as described below presented to the hospital with a chief complaint of shortness of breath and edema for 2 weeks. Patient reported that he was apparently doing well until 2 weeks ago on 3.5 L home oxygen when he started to have worsening shortness of breath, orthopnea associated with cough with yellowish phlegm and also complained of edema, associated body aches, fatigue. Past medical history: COPD on 3.5 L oxygen per minute, heart failure with reduced ejection fraction, coronary artery disease, atrial fibrillation on Eliquis, sick sinus syndrome tongue, insulin dependent type 2 diabetes mellitus, obstructive sleep apnea on CPAP, peripheral artery disease Past surgical history: Left radical nephrectomy, dual-chamber pacemaker, right above-knee amputation Social history: Patient is nonambulatory, quit smoking in year 1999 and denies any alcohol or other drug use Home medications: Eliquis 2.5 mg b.i.d., carvedilol 3.125 mg b.i.d., cilostazol 50 mg b.i.d., Lasix 20 mg daily Review of systems Patient seen and examined at the bedside 09/22 On Sunday patient underwent dialysis. Continues to be on Lasix drip and metolazone was added, patient diuresed 2 L on Sunday, 3.4 L on Sunday Minimal vent settings with a FiO2 35%, peep 5 Sedation to be decreased Over the weekend patient had fevers up to 102 degree F, pancultures repeated 1 bowel movement reported overnight Objective vital signs Vital Sign Date Time Temp Pulse Resp B/P (MAP) Pulse Ox O2 Delivery O2 Flow Rate FiO2 09/22/24 17:25 94/49 09/22/24 17:00 85 18 95 09/22/24 16:00 Mechanical Ventilator+ 30 30 09/22/24 15:45 98.7 98.7 Total Intake and Output 09/21/24 09/21/24 09/22/24 15:00 23:00 07:00 Intake Total 390.802 ml 372.115 ml 391.053 ml Output Total 2350 ml 1830 ml Balance 390.802 ml -1977.885 ml -1438.947 ml medications Current Medications Medications Dose Ordered Sig/Paramjit Route Start Time Stop Time Status Last Admin Dose Admin Levalbuterol HCl 1.25 mg Q6HR NEB 09/12/24 06:00 09/22/24 11:09 1.25 MG Ipratropium [place] 0.5 mg Q6HR NEB 09/12/24 06:00 09/22/24 11:09 0.5 MG Pantoprazole Sodium 40 mg DAILY IV 09/13/24 10:00 09/22/24 08:55 40 MG Dopamine HCl/ Dextrose 250 ml @ 10.444 mls/ hr [id number] IV 09/16/24 10:30 09/22/24 17:25 10.444 MLS/HR Midazolam HCl 50 ml @ 1 mls/hr Q24H IV 09/17/24 05:30 09/19/24 02:00 1 MLS/HR Vancomycin HCl 0 ml @ 0 mls/hr UD IV 09/17/24 10:00 Enteral Nutritional Formula 1,000 ml 30ML/HR GT 09/17/24 11:00 09/21/24 19:08 1,000 ML Dextrose 50 ml UD PRN IV 09/17/24 11:00 Cancel Fentanyl Citrate 250 ml @ 2.5 mls/hr Q24H IV 09/17/24 11:30 09/20/24 06:33 7.5 MLS/HR Mupirocin 1 applic BID EACHNOSTRI 09/18/24 10:00 09/23/24 09:59 09/22/24 08:55 1 APPLIC Acetaminophen 650 mg Q4HP PRN PO 09/19/24 10:00 09/21/24 07:51 650 MG Norepinephrine Bitartrate 32 mg/ Sodium Chloride 250 ml @ 0.938 mls/ hr Q24H IV 09/21/24 12:15 09/22/24 13:37 1.875 MLS/HR Diagnostic Test (Pha) 1 strip Q6HR 09/22/24 12:00 09/22/24 17:23 1 STRIP Insulin Human Regular Q6HR SC 09/22/24 12:00 09/22/24 17:25 12 UNITS Dextrose 50 ml UD PRN IV 09/22/24 07:00 Cefepime HCl 50 ml @ 12.5 mls/hr DAILY@0900 IV 09/23/24 09:00 Furosemide 100 mg/ Sodium Chloride 110 ml @ 11 mls/hr Q10H IV 09/22/24 13:45 09/22/24 14:06 11 MLS/HR Metolazone 10 mg DAILY PO 09/23/24 10:00 Examination Constitutional: Patient is on mechanical ventilation and sedated with a RASS -4 Gen - no pallor, no icterus, no cyanosis, no clubbing Skin - Patients skin is warm and dry.. Skin of the left lower extremity below the knee is mottled with poor blood supply and cold limb HEENT - normocephalic, atraumatic, moist mucous membranes. Neck - full ROM, no LAD, JVD could not be assessed Pulmonary - B/L diminished breath sounds, no wheezing, no stridor. cardiovascular - variable S1,S2 heard, no added sounds no murmurs heard. GI - soft abdomen. no hepatospleenomegaly. Bowel sounds normoactive extremities- right LE AKA with 2+ edema, left LE with mottled appearacne and cold , pulse not palpable Neurological - patient was sedated and on mechanical ventilation, gag reflex present, pupils equal and sluggishly reactive laboratory and microbiology Laboratory Tests 09/22/24 03:13 Test 09/22/24 03:13 Range/Units Serum Glucose 339 H 74-106 mg/dL Microbiology Date/Time Source Procedure Growth Status 09/19/24 18:14 Urine - [place] Urine Culture - Final Complete 09/17/24 08:45 Blood Blood Culture - Final NO GROWTH AFTER 5 DAYS OF INCUBATION. Complete 09/17/24 05:11 Sputum Gram Stain - Final Complete 09/17/24 05:11 Respiratory Culture - Final Methicillin Resistant S.aureus Complete 09/16/24 19:55 Nose MRSA Screen - Final Methicillin Resistant S.aureus Complete Problem List/Assessment/Plan Problem List/Assessment/Plan Neurology Acute metabolic encephalopathy likely due to hypercapnia - on mechanical ventilation - RASS -4 Respiratory Acute on chronic hypercarbic respiratory failure COPD ?Pneumonia likely due to Gram +/-bacteria Severe pulmonary hypertension Obstructive sleep apnea - on mechanical ventilation - DuoNebs q.6 hours - sputum culture showing growth of MRSA - IV antibiotics vancomycin and cefepime - repeat culture Cardiovascular Shock likely due to sepsis, cultures pending Acute on chronic heart failure with a reduced ejection fraction NYHA class 4 Paroxysmal atrial fibrillation , sick sinus syndrome with a dual-chamber pacemaker Coronary artery disease (coronary angiogram in 2020) Severe pulmonary hypertension with RV hypokinesis Peripheral artery disease with right above-knee amputation - on vasopressors with norepinephrine - on Lasix drip at 10 milligram/hour but urine output is not adequate and patient will likely need dialysis - anticoagulation held as the patient had gross hematuria and platelets low Nephrology CASS 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 UTI, ?acute cystitis - BUN creatinine improving - on HD, removed 2.5L on 09/18, and 2.5L on 09/19, further HD held - good urine output - nephrology on board Infectious disease Septic shock likely due to UTI versus pneumonia UTI growing E coli - cultures repeated as the white count was increasing, patient was tachycardic - no wounds noted - on IV cefepime Gastroenterology S/p diversion colostomy Left femoral central venous catheter placed on 09/17 Right IJV therese catheter placed on 09/18 Xavier's catheter Diet: Via NG tube PUD prophylaxis: Protonix DVT prophylaxis: heparin Goals of care discussed with the patient was family over 27 minutes. Code status: Full code time 21 minutes Critical care time spent excluding procedures: 63 minutes Plan discussed with Plan discussed with: Spouse (Sima Najera), Daughter My Orders My Orders Orders - SEBAS ALLAN RESIDENT Procedure Category Date Status Time Glucose Blood PHA 09/22/24 In Process (Accu-Chek Comfort 12:00 Insulin R (Human) PHA 09/22/24 In Process (Insulin R) 12:00 Dextrose 50% Syringe PHA 09/22/24 In Process 07:00 Chest Xray 1 View XY 09/22/24 Resulted 08:49 Urine Bacterial ADDISON 09/22/24 In Process Culture 10:53 Respiratory Culture ADDISON 09/22/24 In Process W/ Gs 11:10 Ventilator Orders RT 09/22/24 Transmitted 08:54 Cefepime 1gm/ 50ml PHA 09/23/24 In Process (Maxipime 1gm/50ml) 09:00 Creatinine LAB 09/23/24 Verified 05:00 Vancomycin,Random LAB 09/23/24 Verified 05:00 Blood Culture ADDISON 09/22/24 In Process 13:51 Dietary Evaluation Review Comments: 1) Matthieu 1 pk daily (ordered per ONS protocol) 2) CCHO 75gm + cardiac 3) Refer [employer] on DC 4) Continue current plan of care Expected Outcomes/Goals: To meet >75% estimated needs Fu 3-5 days Date of Service: Sep 22, 2024 Billing Provider: ENMA MORENO MD Common Visit Codes: [id number] CARE 30-74 MIN SEBAS ALLAN RESIDENT Sep 22, 2024 17:31 ENMA MORENO MD Sep 23, 2024 15:10
--- NOTE | 2024-09-22 22:50 | DVHPN2 ---
Progress Note - Dictate Date Seen: Sep 22, 2024 Medical Necessity Reason Pt with a Central, PICC or Fol: No The following are medically ne: Xavier Catheter Subjective Patient was seen and evaluated in follow up in the ICU. Patient is intubated on ventilator. 35% FiO2. Patient has been off sedation since 09/21. Patient only moves extremities when stimulated. Unable to have CPAP trial at this time. WBC 17.5, BUN 60, Prosthetic Dentist 2.74. Chest x-ray shows interval progression in diffuse increased prominence of the pulmonary vasculature with otherwise stable appearing moderate left and small right pleural effusions. vital signs Vital Sign Date Time Temp Pulse Resp B/P (MAP) Pulse Ox O2 Delivery O2 Flow Rate FiO2 09/22/24 21:50 89 18 103/57 (72) 95 30 09/22/24 20:00 Mechanical Ventilator+ 09/22/24 20:00 99.0 99.0 Total Intake and Output 09/21/24 09/21/24 09/22/24 15:00 23:00 07:00 Intake Total 390.802 ml 372.115 ml 391.053 ml Output Total 2350 ml 1830 ml Balance 390.802 ml -1977.885 ml -1438.947 ml medications Current Medications Medications Dose Ordered Sig/Paramjit Route Start Time Stop Time Status Last Admin Dose Admin Levalbuterol HCl 1.25 mg Q6HR NEB 09/12/24 06:00 09/22/24 18:27 1.25 MG Ipratropium [place] 0.5 mg Q6HR NEB 09/12/24 06:00 09/22/24 18:27 0.5 MG Pantoprazole Sodium 40 mg DAILY IV 09/13/24 10:00 09/22/24 08:55 40 MG Dopamine HCl/ Dextrose 250 ml @ 10.444 mls/ hr [id number] IV 09/16/24 10:30 09/22/24 17:25 10.444 MLS/HR Midazolam HCl 50 ml @ 1 mls/hr Q24H IV 09/17/24 05:30 09/19/24 02:00 1 MLS/HR Vancomycin HCl 0 ml @ 0 mls/hr UD IV 09/17/24 10:00 Enteral Nutritional Formula 1,000 ml 30ML/HR GT 09/17/24 11:00 09/21/24 19:08 1,000 ML Dextrose 50 ml UD PRN IV 09/17/24 11:00 Cancel Fentanyl Citrate 250 ml @ 2.5 mls/hr Q24H IV 09/17/24 11:30 09/20/24 06:33 7.5 MLS/HR Mupirocin 1 applic BID EACHNOSTRI 09/18/24 10:00 09/23/24 09:59 09/22/24 22:34 1 APPLIC Acetaminophen 650 mg Q4HP PRN PO 09/19/24 10:00 09/21/24 07:51 650 MG Norepinephrine Bitartrate 32 mg/ Sodium Chloride 250 ml @ 0.938 mls/ hr Q24H IV 09/21/24 12:15 09/22/24 13:37 1.875 MLS/HR Diagnostic Test (Pha) 1 strip Q6HR 09/22/24 12:00 09/22/24 17:23 1 STRIP Insulin Human Regular Q6HR SC 09/22/24 12:00 09/22/24 17:25 12 UNITS Dextrose 50 ml UD PRN IV 09/22/24 07:00 Cefepime HCl 50 ml @ 12.5 mls/hr DAILY@0900 IV 09/23/24 09:00 Furosemide 100 mg/ Sodium Chloride 110 ml @ 11 mls/hr Q10H IV 09/22/24 13:45 09/22/24 20:20 11 MLS/HR Metolazone 10 mg DAILY PO 09/23/24 10:00 objective GENERAL: Intubated on ventilator. EYES: PERRL, EOMI. Anicteric. HENT: Moist mucous membranes. LUNGS: breath sounds. CARDIOVASCULAR: Regular rate and rhythm. ABDOMEN: Soft, nontender and nondistended. Patient has a functioning colostomy bag noted to the right-sided abdomen. EXTREMITIES: Pitting edema in all extremities. Right AKA. SKIN: Warm, dry. laboratory and microbiology Laboratory Tests 09/22/24 03:13 Test 09/22/24 03:13 Range/Units Serum Glucose 339 H 74-106 mg/dL Problem List Acute on chronic hypoxic respiratory failure secondary to probable CHF exacerbation. Acute on chronic Moderately reduced congestive heart failure exacerbation-NYHA class 4. Pneumonia. AFib, rate controlled on Eliquis. COPD on 3 L home oxygen. Mild coronary artery disease. Sick sinus syndrome status post dual-chamber Biotronik pacemaker 2016. Obstructive apnea on CPAP. Acute cystitis. Diabetes mellitus type 2-A1c 6.4. ? CASS on CKD. Left-sided hydrocele. Anemia likely iron-deficiency. Secondary hypercoagulable state. History of left breast cancer status post surgery and tamoxifen therapy 2007. History of laparoscopic left radical nephrectomy 2013. History of colostomy 2019. Stage I decubitus sacral ulcer. Tunnel hemorrhoids. Diverticulosis. Assessment/Plan Continued all current supportive medical care. IV antibiotics as ordered. Dopamine drip. Diuretics with Lasix. GI prophylactics. Vasopressors for hemodynamic support. Additional plan as per the hospital course. Critical care time of 45 minutes provided to include time spent evaluation of patient at bedside, when appropriate patient/family education for diagnosis, treatment plan, review of pertinent medical information and discussion of care with specialty providers and PCP. Mechanical ventilator parameters, treatment and adjustments have personally been reviewed by me and treatment plan by asp net programmer has also been reviewed. Dietary Evaluation Review Comments: 1) Matthieu 1 pk daily (ordered per ONS protocol) 2) [facility] 75gm + cardiac 3) Refer [employer] on DC 4) Continue current plan of care Expected Outcomes/Goals: To meet >75% estimated needs Fu 3-5 days Plan discussed with: Other EVERTON SHELDON MD Sep 22, 2024 22:50
[2024-09-23] VITALS (108 sets, daily range): BP systolic 66–161; BP diastolic 33–88; PULSE 78–111; RESP 15–24; TEMP 97.9–99.5; O2SAT 87–100
[2024-09-23 03:53] LABS: Basophils # (auto) 0.1 10 ^3/uL (0-0.2); Lymphocytes # (auto) 0.7 10 ^3/uL (0.4-5.4); Monocytes # (auto) 1.1 10 ^3/uL (0-1.3); Neutrophils % (auto) 86.6 % (37.0-80.0); Platelet Count (auto) 157 10^3/uL (140-450)
[2024-09-23 03:54] LABS: Basophils % (auto) 0.8 % (0.0-2.0); Eosinophils # (auto) 0.5 10 ^3/uL (0-0.8); Eosinophils % (auto) 2.9 % (0.0-7.0); Hematocrit 45.6 % (41.0-53.0); Hemoglobin 14.2 g/dL (13.5-17.5); Lymphocytes % (auto) 3.6 % (10.0-50.0); Mean Corpuscular Hgb Conc. 31.2 g/dL (32.0-36.0); Monocytes % (auto) 6.1 % (0.0-12.0); Neutrophils # (auto) 16.2 10 ^3/uL (1.6-8.6); Nucleated Red Blood Cells % 0.1 %; Red Blood Cells 5.92 10^6/uL (4.5-5.90); Red Cell Distribution Width 22.3 % (11.8-14.3); White Blood Cell 18.7 10^3/uL (4.4-10.8)
[2024-09-23 03:57] LABS: Anion Gap 13 (5-15); Carbon Dioxide 29 mmol/L (20-31); Potassium 3.7 mmol/L (3.5-5.1); Sodium 138 mmol/L (136-145)
[2024-09-23 04:03] LABS: BUN/Creatinine Ratio 20.4 (10.0-20.0); Magnesium 1.9 mg/dL (1.6-2.6)
[2024-09-23 04:13] LABS: Blood Urea Nitrogen 56 mg/dL (9-23); Calcium 10.8 mg/dL (8.7-10.4); Chloride 96 mmol/L (98-107); Glucose 304 mg/dL (74-106)
[2024-09-23 04:17] LABS: INR 1.15 (0.9-1.15); Partial Thromboplastin Time 29.1 SEC (24.5-34.5)
--- NOTE | 2024-09-23 05:02 | DVH ---
CHEST RADIOGRAPH Indication: intubated Technique: Single frontal view of the chest was obtained Comparison: XY CHEST XRAY 1 VIEW on DOS: 09/22/24 FINDINGS: Lines and Tubes: Right central venous catheter terminates in the superior vena cava. The enteric tube courses below the left hemidiaphragm and outside the field of view dual-chamber pacemaker with right atrial and ventricular leads. Lungs: Patchy bilateral airspace disease. Pleura: No effusion. No pneumothorax. Cardiomediastinal contours: Unremarkable Bones: No acute osseous abnormality. IMPRESSION: 1. Appropriate position of the support lines and tubes. 2. Patchy bilateral airspace disease compatible with multifocal pneumonia.
[2024-09-23 07:14] LABS: Base Excess 7.2 mmol/L (-2.0-3.0)
[2024-09-23] MEDS: POTASSIUM CHL 20MEQ/50ML 50 ML IV SCH (08:13)
[2024-09-23] MEDS: CEFEPIME 1GM/ 50ML 50 ML IV SCH (10:22)
[2024-09-23] MEDS: metOLazone 5 MG TAB PO SCH (10:24)
[2024-09-23] MEDS: HEPARIN SODIUM (PORCINE) 5000 UNITS/ML 1ML VIAL SC SCH (10:28)
[2024-09-23] MEDS: NOREPINEPHRINE BITARTRATE 32 MG in SODIUM CHL 0.9% 218 ML IV SCH (14:09)
[2024-09-23] MEDS: MICAFUNGIN SODIUM 100 MG in SODIUM CHL 0.9% 100 ML IV ONE (15:59)
--- NOTE | 2024-09-23 16:48 | DVHPN2 ---
Progress Note Date Seen: Sep 23, 2024 Medical Necessity Reason Pt with a Central, PICC or Fol: No The following are medically ne: Central Line, Xavier Catheter Subjective Patient reports: Other (Patient remains intubated, febrile episodes per RN) Review of Systems: Deferred Objective vital signs Vital Sign Date Time Temp Pulse Resp B/P (MAP) Pulse Ox O2 Delivery O2 Flow Rate FiO2 09/23/24 16:30 96 20 120/54 (76) 95 09/23/24 16:00 Mechanical Ventilator+ 30 30 09/23/24 15:45 99.4 99.4 Total Intake and Output 09/22/24 09/22/24 09/23/24 15:00 23:00 07:00 Intake Total 291.552 ml 238.552 ml 218.242 ml Output Total 1850 ml 2050 ml Balance 291.552 ml -1611.448 ml -1831.758 ml medications Current Medications Medications Dose Ordered Sig/Paramjit Route Start Time Stop Time Status Last Admin Dose Admin Levalbuterol HCl 1.25 mg Q6HR NEB 09/12/24 06:00 09/23/24 11:40 1.25 MG Ipratropium [place] 0.5 mg Q6HR NEB 09/12/24 06:00 09/23/24 11:40 0.5 MG Pantoprazole Sodium 40 mg DAILY IV 09/13/24 10:00 09/23/24 10:22 40 MG Midazolam HCl 50 ml @ 1 mls/hr Q24H IV 09/17/24 05:30 09/19/24 02:00 1 MLS/HR Vancomycin HCl 0 ml @ 0 mls/hr UD IV 09/17/24 10:00 Enteral Nutritional Formula 1,000 ml 30ML/HR GT 09/17/24 11:00 09/21/24 19:08 1,000 ML Dextrose 50 ml UD PRN IV 09/17/24 11:00 Cancel Fentanyl Citrate 250 ml @ 2.5 mls/hr Q24H IV 09/17/24 11:30 09/20/24 06:33 7.5 MLS/HR Acetaminophen 650 mg Q4HP PRN PO 09/19/24 10:00 09/21/24 07:51 650 MG Diagnostic Test (Pha) 1 strip Q6HR 09/22/24 12:00 09/23/24 11:58 1 STRIP Insulin Human Regular Q6HR SC 09/22/24 12:00 09/23/24 11:59 9 UNITS Dextrose 50 ml UD PRN IV 09/22/24 07:00 Cefepime HCl 50 ml @ 12.5 mls/hr DAILY@0900 IV 09/23/24 09:00 09/23/24 10:22 12.5 MLS/HR Metolazone 10 mg DAILY PO 09/23/24 10:00 09/23/24 10:24 10 MG Heparin Sodium (Porcine) 5,000 units Q12HR SC 09/23/24 10:00 09/23/24 10:28 5,000 UNITS Norepinephrine Bitartrate 32 mg/ Sodium Chloride 250 ml @ 0.938 mls/ hr Q24H IV 09/23/24 12:30 09/23/24 14:09 2.813 MLS/HR Furosemide 100 mg/ Sodium Chloride 110 ml @ 5.5 mls/hr Q20H IV 09/23/24 14:00 Micafungin Sodium 100 mg/Sodium Chloride 100 ml @ 100 mls/hr DAILY IV 09/24/24 10:00 Examination: GENERAL:Abnormal, MSK:Abnormal, SKIN:Abnormal, NEURO:Abnormal laboratory and microbiology Laboratory Tests 09/23/24 03:19 Test 09/23/24 03:19 Range/Units Serum Glucose 304 H 74-106 mg/dL Microbiology Date/Time Source Procedure Growth Status 09/22/24 15:00 Blood Blood Culture - Preliminary NO GROWTH AFTER 24 HOURS OF INCUBATION. 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 W/Furosemide 14:00 Dietary Evaluation Review Comments: 1) Matthieu 1 pk daily (ordered per ONS protocol) 2) CCHO 75gm + cardiac 3) Refer Hardware Installer on DC 4) Continue current plan of care Expected Outcomes/Goals: To meet >75% estimated needs Fu 3-5 days KILEY MARTINEZ MD Sep 23, 2024 16:48
[2024-09-23] MEDS: FUROSEMIDE INJECTION 100 MG in SODIUM CHL 0.9% 100 ML IV SCH (17:38)
--- NOTE | 2024-09-23 18:19 | DVHPNRES ---
Progress Note Date Seen: Sep 23, 2024 Resident Creating Document: SEBAS ALLAN RESIDENT Medical Necessity Reason Pt with a Central, PICC or Fol: Yes The following are medically ne: Central Line, Xavier Catheter Subjective Review of Systems Patient was a 79-year-old male with a past medical history as described below presented to the hospital with a chief complaint of shortness of breath and edema for 2 weeks. Patient reported that he was apparently doing well until 2 weeks ago on 3.5 L home oxygen when he started to have worsening shortness of breath, orthopnea associated with cough with yellowish phlegm and also complained of edema, associated body aches, fatigue. Past medical history: COPD on 3.5 L oxygen per minute, heart failure with reduced ejection fraction, coronary artery disease, atrial fibrillation on Eliquis, sick sinus syndrome tongue, insulin dependent type 2 diabetes mellitus, obstructive sleep apnea on CPAP, peripheral artery disease Past surgical history: Left radical nephrectomy, dual-chamber pacemaker, right above-knee amputation Social history: Patient is nonambulatory, quit smoking in year 1999 and denies any alcohol or other drug use Home medications: Eliquis 2.5 mg b.i.d., carvedilol 3.125 mg b.i.d., cilostazol 50 mg b.i.d., Lasix 20 mg daily Review of systems Patient seen and examined at the bedside 09/23 On Sunday patient underwent dialysis. Lasix drip decreased to 5.5mg/hr and metolazone at 10, patient diuresing well Minimal vent settings with a FiO2 35%, peep 5 Sedation to be decreased, CPAP in the morning overnight fever upto 99.5 F, pancultures repeated Objective vital signs Vital Sign Date Time Temp Pulse Resp B/P (MAP) Pulse Ox O2 Delivery O2 Flow Rate FiO2 09/23/24 18:01 104 18 141/70 (93) 92 09/23/24 18:00 Mechanical Ventilator+ 30 30 09/23/24 15:45 99.4 99.4 Total Intake and Output 09/22/24 09/22/24 09/23/24 15:00 23:00 07:00 Intake Total 291.552 ml 238.552 ml 218.242 ml Output Total 1850 ml 2050 ml Balance 291.552 ml -1611.448 ml -1831.758 ml medications Current Medications Medications Dose Ordered Sig/Paramjit Route Start Time Stop Time Status Last Admin Dose Admin Levalbuterol HCl 1.25 mg Q6HR NEB 09/12/24 06:00 09/23/24 11:40 1.25 MG Ipratropium [place] 0.5 mg Q6HR NEB 09/12/24 06:00 09/23/24 11:40 0.5 MG Pantoprazole Sodium 40 mg DAILY IV 09/13/24 10:00 09/23/24 10:22 40 MG Midazolam HCl 50 ml @ 1 mls/hr Q24H IV 09/17/24 05:30 09/19/24 02:00 1 MLS/HR Vancomycin HCl 0 ml @ 0 mls/hr UD IV 09/17/24 10:00 Enteral Nutritional Formula 1,000 ml 30ML/HR GT 09/17/24 11:00 09/23/24 17:38 1,000 ML Dextrose 50 ml UD PRN IV 09/17/24 11:00 Cancel Fentanyl Citrate 250 ml @ 2.5 mls/hr Q24H IV 09/17/24 11:30 09/20/24 06:33 7.5 MLS/HR Acetaminophen 650 mg Q4HP PRN PO 09/19/24 10:00 09/21/24 07:51 650 MG Diagnostic Test (Pha) 1 strip Q6HR 09/22/24 12:00 09/23/24 17:37 1 STRIP Insulin Human Regular Q6HR SC 09/22/24 12:00 09/23/24 17:44 15 UNITS Dextrose 50 ml UD PRN IV 09/22/24 07:00 Cefepime HCl 50 ml @ 12.5 mls/hr DAILY@0900 IV 09/23/24 09:00 09/23/24 10:22 12.5 MLS/HR Metolazone 10 mg DAILY PO 09/23/24 10:00 09/23/24 10:24 10 MG Heparin Sodium (Porcine) 5,000 units Q12HR SC 09/23/24 10:00 09/23/24 10:28 5,000 UNITS Norepinephrine Bitartrate 32 mg/ Sodium Chloride 250 ml @ 0.938 mls/ hr Q24H IV 09/23/24 12:30 09/23/24 14:09 2.813 MLS/HR Furosemide 100 mg/ Sodium Chloride 110 ml @ 5.5 mls/hr Q20H IV 09/23/24 14:00 09/23/24 17:38 5.5 MLS/HR Micafungin Sodium 100 mg/Sodium Chloride 100 ml @ 100 mls/hr DAILY IV 09/24/24 10:00 Examination Constitutional: Patient is on mechanical ventilation and off sedation with a RASS -3 Gen - no pallor, no icterus, no cyanosis, no clubbing Skin - Patients skin is warm and dry.. Skin of the left lower extremity below the knee is mottled with poor blood supply and cold limb HEENT - normocephalic, atraumatic, moist mucous membranes. Neck - full ROM, no LAD, JVD could not be assessed Pulmonary - B/L diminished breath sounds, no wheezing, no stridor. cardiovascular - variable S1,S2 heard, no added sounds no murmurs heard. GI - soft abdomen. no hepatospleenomegaly. Bowel sounds normoactive extremities- right LE AKA with 2+ edema, left LE with mottled appearacne and cold , pulse not palpable Neurological - patient was sedated and on mechanical ventilation, gag reflex present, pupils equal and sluggishly reactive laboratory and microbiology Laboratory Tests 09/23/24 03:19 Test 09/23/24 03:19 Range/Units Serum Glucose 304 H 74-106 mg/dL Microbiology Date/Time Source Procedure Growth Status 09/22/24 15:00 Blood Blood Culture - Preliminary NO GROWTH AFTER 24 HOURS OF INCUBATION. Resulted 09/22/24 11:00 Sputum Gram Stain Pending Resulted 09/22/24 11:00 Sputum Respiratory Culture - Preliminary Resulted 09/22/24 10:50 Urine - [place] Urine Culture - Preliminary Resulted 09/16/24 19:55 Nose MRSA Screen - Final Methicillin Resistant S.aureus Complete Problem List/Assessment/Plan Problem List/Assessment/Plan Neurology Acute metabolic encephalopathy likely due to hypercapnia - on mechanical ventilation - RASS -3 Respiratory Acute on chronic hypercarbic respiratory failure COPD ?Pneumonia likely due to Gram +/-bacteria Severe pulmonary hypertension Obstructive sleep apnea - on mechanical ventilation - DuoNebs q.6 hours - sputum culture showing growth of MRSA - IV antibiotics vancomycin and cefepime - repeat culture Cardiovascular Shock likely due to sepsis, cultures pending Acute on chronic heart failure with a reduced ejection fraction NYHA class 4 Paroxysmal atrial fibrillation , sick sinus syndrome with a dual-chamber pacemaker Coronary artery disease (coronary angiogram in 2020) Severe pulmonary hypertension with RV hypokinesis Peripheral artery disease with right above-knee amputation - on vasopressors with norepinephrine - on Lasix drip at 5 milligram/hour - anticoagulation currently on prophylactic with heparin Nephrology CASS 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 UTI, ?acute cystitis - BUN creatinine improving - on HD, removed 2.5L on 09/18, and 2.5L on 09/19, further HD held - good urine output - nephrology on board Infectious disease Septic shock likely due to UTI versus pneumonia UTI growing E coli - cultures repeated as the white count was increasing, patient was tachycardic - no wounds noted - on IV cefepime and vancomycin - added micafungin Gastroenterology S/p diversion colostomy Left femoral central venous catheter placed on 09/17 Right IJV therese catheter placed on 09/18 Xavier's catheter Diet: Via NG tube PUD prophylaxis: Protonix DVT prophylaxis: heparin Goals of care discussed with the patient was family over 27 minutes. Code status: Full code time 21 minutes Critical care time spent excluding procedures: 61 minutes Plan discussed with Plan discussed with: Spouse, Daughter, Other (RN ( Steph )) My Orders My Orders Orders - SEBAS ALLAN RESIDENT Procedure Category Date Status Time Chest Portable XY 09/23/24 Resulted 04:00 Abg W/ Co-Ox RT 09/23/24 Logged 04:00 Heparin Sodium PHA 09/23/24 In Process (Porcine) 10:00 Sodium Chl 0.9% PHA 09/23/24 In Process (Ns... 12:30 Complete Blood Count LAB 09/24/24 Verified 04:00 Vancomycin,Random LAB 09/24/24 Verified 04:00 Insulin Lantus PHA 09/23/24 Logged (Glargine) (Lantus) 18:00 Comprehensive LAB 09/24/24 Verified Metabolic Panel 04:00 Chest Xray 1 View XY 09/24/24 Logged 04:00 Abg W/ Co-Ox RT 09/24/24 Logged 04:00 Magnesium LAB 09/24/24 Verified 04:00 Dietary Evaluation Review Comments: 1) Matthieu 1 pk daily (ordered per ONS protocol) 2) CCHO 75gm + cardiac 3) Refer Cabinetmaker Supervisor on DC 4) Continue current plan of care Expected Outcomes/Goals: To meet >75% estimated needs Fu 3-5 days Date of Service: Sep 23, 2024 Billing Provider: ENMA MORENO MD Common Visit Codes: [id number] CARE 30-74 MIN SEBAS ALLAN RESIDENT Sep 23, 2024 18:19 ENMA MORENO MD Sep 24, 2024 15:50
[2024-09-23] MEDS: INSULIN LANTUS (GLARGINE) 1 /0.01ml (100units/ml) SC ONE (18:41)
[2024-09-23] MEDS: VASOPRESSIN 20 UNITS in SODIUM CHL 0.9% 99 ML IV SCH (19:45)
[2024-09-23] MEDS ORDERED: VASOPRESSIN 20 UNITS in SODIUM CHL 0.9% 99 ML IV SCH (19:45)
--- NOTE | 2024-09-23 22:59 | DVHPN2 ---
Progress Note - Dictate Date Seen: Sep 23, 2024 Medical Necessity Reason Pt with a Central, PICC or Fol: No The following are medically ne: Central Line, Xavier Catheter Subjective Patient was seen and evaluated in follow up in the ICU. Patient is intubated on ventilator. 30% FiO2. Patient remains off sedation. WBC 18.7, BUN 56, Rod Pointer 2.74. Chest x-ray shows patchy bilateral airspace disease compatible with multifocal pneumonia. vital signs Vital Sign Date Time Temp Pulse Resp B/P (MAP) Pulse Ox O2 Delivery O2 Flow Rate FiO2 09/23/24 22:23 104 18 130/59 (82) 96 30 09/23/24 22:00 Mechanical Ventilator+ 09/23/24 20:00 99.5 99.5 Total Intake and Output 09/22/24 09/22/24 09/23/24 15:00 23:00 07:00 Intake Total 291.552 ml 238.552 ml 218.242 ml Output Total 1850 ml 2050 ml Balance 291.552 ml -1611.448 ml -1831.758 ml medications Current Medications Medications Dose Ordered Sig/Paramjit Route Start Time Stop Time Status Last Admin Dose Admin Levalbuterol HCl 1.25 mg Q6HR NEB 09/12/24 06:00 09/23/24 18:49 1.25 MG Ipratropium [place] 0.5 mg Q6HR NEB 09/12/24 06:00 09/23/24 18:49 0.5 MG Pantoprazole Sodium 40 mg DAILY IV 09/13/24 10:00 09/23/24 10:22 40 MG Midazolam HCl 50 ml @ 1 mls/hr Q24H IV 09/17/24 05:30 09/19/24 02:00 1 MLS/HR Vancomycin HCl 0 ml @ 0 mls/hr UD IV 09/17/24 10:00 Enteral Nutritional Formula 1,000 ml 30ML/HR GT 09/17/24 11:00 09/23/24 17:38 1,000 ML Dextrose 50 ml UD PRN IV 09/17/24 11:00 Cancel Fentanyl Citrate 250 ml @ 2.5 mls/hr Q24H IV 09/17/24 11:30 09/20/24 06:33 7.5 MLS/HR Acetaminophen 650 mg Q4HP PRN PO 09/19/24 10:00 09/21/24 07:51 650 MG Diagnostic Test (Pha) 1 strip Q6HR 09/22/24 12:00 09/23/24 17:37 1 STRIP Insulin Human Regular Q6HR SC 09/22/24 12:00 09/23/24 17:44 15 UNITS Dextrose 50 ml UD PRN IV 09/22/24 07:00 Cefepime HCl 50 ml @ 12.5 mls/hr DAILY@0900 IV 09/23/24 09:00 09/23/24 10:22 12.5 MLS/HR Metolazone 10 mg DAILY PO 09/23/24 10:00 09/23/24 10:24 10 MG Heparin Sodium (Porcine) 5,000 units Q12HR SC 09/23/24 10:00 09/23/24 22:29 5,000 UNITS Norepinephrine Bitartrate 32 mg/ Sodium Chloride 250 ml @ 0.938 mls/ hr Q24H IV 09/23/24 12:30 09/23/24 14:09 2.813 MLS/HR Furosemide 100 mg/ Sodium Chloride 110 ml @ 5.5 mls/hr Q20H IV 09/23/24 14:00 09/23/24 17:38 5.5 MLS/HR Micafungin Sodium 100 mg/Sodium Chloride 100 ml @ 100 mls/hr DAILY IV 09/24/24 10:00 Vasopressin 20 units/Sodium Chloride 100 ml @ 9 mls/hr Q11H7M IV 09/23/24 19:45 objective GENERAL: Intubated on ventilator. EYES: PERRL, EOMI. Anicteric. HENT: Moist mucous membranes. LUNGS: breath sounds. CARDIOVASCULAR: Regular rate and rhythm. ABDOMEN: Soft, nontender and nondistended. Patient has a functioning colostomy bag noted to the right-sided abdomen. EXTREMITIES: Pitting edema in all extremities. Right AKA. SKIN: Warm, dry. laboratory and microbiology Laboratory Tests 09/23/24 03:19 Test 09/23/24 03:19 Range/Units Serum Glucose 304 H 74-106 mg/dL Problem List Acute on chronic hypoxic respiratory failure secondary to probable CHF exacerbation. Acute on chronic Moderately reduced congestive heart failure exacerbation-NYHA class 4. Pneumonia. AFib, rate controlled on Eliquis. COPD on 3 L home oxygen. Mild coronary artery disease. Sick sinus syndrome status post dual-chamber Biotronik pacemaker 2016. Obstructive apnea on CPAP. Acute cystitis. Diabetes mellitus type 2-A1c 6.4. ? CASS on CKD. Left-sided hydrocele. Anemia likely iron-deficiency. Secondary hypercoagulable state. History of left breast cancer status post surgery and tamoxifen therapy 2007. History of laparoscopic left radical nephrectomy 2013. History of colostomy 2019. Stage I decubitus sacral ulcer. Tunnel hemorrhoids. Diverticulosis. Assessment/Plan Continued all current supportive medical care. IV antibiotics as ordered. Dopamine drip. Diuretics with Lasix. GI prophylactics. Vasopressors for hemodynamic support. Additional plan as per the hospital course. Critical care time of 45 minutes provided to include time spent evaluation of patient at bedside, when appropriate patient/family education for diagnosis, treatment plan, review of pertinent medical information and discussion of care with specialty providers and PCP. Mechanical ventilator parameters, treatment and adjustments have personally been reviewed by me and treatment plan by middle card tender has also been reviewed. Dietary Evaluation Review Comments: 1) Matthieu 1 pk daily (ordered per ONS protocol) 2) CCHO 75gm + cardiac 3) Refer Quality Assurance Lead on DC 4) Continue current plan of care Expected Outcomes/Goals: To meet >75% estimated needs Fu 3-5 days Plan discussed with: Other EVERTON SHELDNO MD Sep 23, 2024 22:58
[2024-09-24] VITALS (104 sets, daily range): BP systolic 78–135; BP diastolic 37–72; PULSE 86–107; RESP 12–39; TEMP 99.3–100.1; O2SAT 94–100
[2024-09-24 02:02] LABS: Potassium 3.8 mmol/L (3.5-5.1)
[2024-09-24 02:09] LABS: Magnesium 1.8 mg/dL (1.6-2.6)
--- NOTE | 2024-09-24 03:48 | DVH ---
CHEST RADIOGRAPH Indication: on vent, b/l pulmonary edema Technique: Single frontal view of the chest was obtained Comparison: XY CHEST PORTABLE on DOS: 09/23/24, XY CHEST XRAY 1 VIEW on DOS: 09/22/24, XY CHEST PORTABL E on DOS: 09/21/24 IMPRESSION: Dual lead left cardiac device. Endotracheal tube and enteric tube appear satisfactory in position. Right dialysis catheter tip in the region of the superior vena cava. Mild pulmonary vascular congesti on. Heart appears stable in size. Small left pleural effusion. No pneumothorax.
[2024-09-24 03:56] LABS: Basophils # (auto) 0.1 10 ^3/uL (0-0.2); Hemoglobin 13.9 g/dL (13.5-17.5); Mean Corpuscular Volume 76.3 fL (80.0-100.0); Nucleated Red Blood Cells % 0.1 %; White Blood Cell 18.4 10^3/uL (4.4-10.8)
[2024-09-24 04:00] LABS: Basophils % (auto) 0.6 % (0.0-2.0); Eosinophils # (auto) 0.3 10 ^3/uL (0-0.8); Eosinophils % (auto) 1.9 % (0.0-7.0); Hematocrit 43.5 % (41.0-53.0); Lymphocytes # (auto) 0.8 10 ^3/uL (0.4-5.4); Lymphocytes % (auto) 4.3 % (10.0-50.0); Mean Corpuscular Hemoglobin 24.4 pg (28.0-32.0); Monocytes # (auto) 1.6 10 ^3/uL (0-1.3); Neutrophils # (auto) 15.5 10 ^3/uL (1.6-8.6); Neutrophils % (auto) 84.2 % (37.0-80.0); Platelet Count (auto) 197 10^3/uL (140-450)
[2024-09-24 04:12] LABS: Alanine Aminotransferase 17 U/L (7-40); Albumin 4.1 g/dL (3.2-4.8); Alkaline Phosphatase 77 U/L (46-116); Anion Gap 13 (5-15); Aspartate Aminotransferase 29 U/L (13-40); BUN/Creatinine Ratio 21.1 (10.0-20.0); Carbon Dioxide 31 mmol/L (20-31); Magnesium 1.9 mg/dL (1.6-2.6); Sodium 140 mmol/L (136-145)
[2024-09-24 04:21] LABS: Blood Urea Nitrogen 60 mg/dL (9-23); Calcium 11.3 mg/dL (8.7-10.4); Chloride 96 mmol/L (98-107); Glucose 262 mg/dL (74-106); Potassium 3.5 mmol/L (3.5-5.1)
[2024-09-24] MEDS: POTASSIUM CHL 20MEQ/50ML 50 ML IV SCH (04:29)
[2024-09-24 04:34] LABS: Total Protein 6.8 g/dL (5.7-8.2)
[2024-09-24 06:36] LABS: Base Excess 7.4 mmol/L (-2.0-3.0)
[2024-09-24] MEDS: SODIUM CHL 0.9% 1000 ML BAG XX ONE (07:00)
[2024-09-24] MEDS: ALBUMIN 25% 100 ML IV ONE (07:00)
[2024-09-24] MEDS: MICAFUNGIN SODIUM 100 MG in SODIUM CHL 0.9% 100 ML IV SCH (10:46)
[2024-09-24] MEDS: MAGNESIUM SULFATE 1GM/100ML 100 ML IV ONE (14:02)
--- NOTE | 2024-09-24 14:39 | DVH ---
EXAM: XY CHEST PORTABLE Indication: s/p central line placement Technique: Single frontal view of the chest was obtained Comparison: XY CHEST XRAY 1 VIEW on DOS: 09/24/24, XY CHEST PORTABLE on DOS: 09/23/24, XY CHEST XRAY 1 VIEW on DOS: 09/22/24, XY CHEST PORTABLE on DOS: 09/21/24, XY CHEST XRAY 1 VIEW on DOS: 09/20/24 FINDINGS: Lines and Tubes: Stable lines and tubes. Lungs: Stable bibasilar opacities. Pleura: Possible small left pleural effusion. Right costophrenic angle is collimated from field of vi ew. No pneumothorax. Cardiomediastinal contours: Unchanged. Bones: No acute osseous abnormality. IMPRESSION: No significant change compared to prior exam allowing for differences in technique.
[2024-09-24 18:38] LABS: Hematocrit 44.3 % (41.0-53.0); Hemoglobin 13.6 g/dL (13.5-17.5)
[2024-09-24] MEDS: VANCOMYCIN 500mg/100mL 100 ML IV ONE (18:51)
--- NOTE | 2024-09-24 19:05 | DVHPNRES ---
Progress Note Date Seen: Sep 24, 2024 Resident Creating Document: SEBAS ALLAN RESIDENT Medical Necessity Reason Pt with a Central, PICC or Fol: Yes The following are medically ne: Central Line, Xavier Catheter Subjective Review of Systems Patient was a 79-year-old male with a past medical history as described below presented to the hospital with a chief complaint of shortness of breath and edema for 2 weeks. Patient reported that he was apparently doing well until 2 weeks ago on 3.5 L home oxygen when he started to have worsening shortness of breath, orthopnea associated with cough with yellowish phlegm and also complained of edema, associated body aches, fatigue. Past medical history: COPD on 3.5 L oxygen per minute, heart failure with reduced ejection fraction, coronary artery disease, atrial fibrillation on Eliquis, sick sinus syndrome tongue, insulin dependent type 2 diabetes mellitus, obstructive sleep apnea on CPAP, peripheral artery disease Past surgical history: Left radical nephrectomy, dual-chamber pacemaker, right above-knee amputation Social history: Patient is nonambulatory, quit smoking in year 1999 and denies any alcohol or other drug use Home medications: Eliquis 2.5 mg b.i.d., carvedilol 3.125 mg b.i.d., cilostazol 50 mg b.i.d., Lasix 20 mg daily Review of systems Patient seen and examined at the bedside 09/23 Lasix drip at 5.5mg/hr and metolazone at 10, patient diuresing well Minimal vent settings with a FiO2 35%, peep 5 patient was on CPAP for an hour but the sedation did not wean off yet and patient went apnoic and had to be put back on AC fever upto 100.1 F Objective vital signs Vital Sign Date Time Temp Pulse Resp B/P (MAP) Pulse Ox O2 Delivery O2 Flow Rate FiO2 09/24/24 18:32 96 18 105/53 (70) 97 30 09/24/24 18:00 Mechanical Ventilator+ 09/24/24 16:00 99.5 99.5 09/24/24 10:00 30.0 Total Intake and Output 09/23/24 09/23/24 09/24/24 15:00 23:00 07:00 Intake Total 337.243 ml 388.579 ml 178.75 ml Output Total 1675 ml 1100 ml Balance 337.243 ml -1286.421 ml -921.25 ml medications Current Medications Medications Dose Ordered Sig/Paramjit Route Start Time Stop Time Status Last Admin Dose Admin Levalbuterol HCl 1.25 mg Q6HR NEB 09/12/24 06:00 09/24/24 18:32 1.25 MG Ipratropium [place] 0.5 mg Q6HR NEB 09/12/24 06:00 09/24/24 18:32 0.5 MG Pantoprazole Sodium 40 mg DAILY IV 09/13/24 10:00 09/24/24 10:43 40 MG Midazolam HCl 50 ml @ 1 mls/hr Q24H IV 09/17/24 05:30 09/19/24 02:00 1 MLS/HR Vancomycin HCl 0 ml @ 0 mls/hr UD IV 09/17/24 10:00 Enteral Nutritional Formula 1,000 ml 30ML/HR GT 09/17/24 11:00 09/23/24 17:38 1,000 ML Dextrose 50 ml UD PRN IV 09/17/24 11:00 Cancel Fentanyl Citrate 250 ml @ 2.5 mls/hr Q24H IV 09/17/24 11:30 09/24/24 13:34 2.5 MLS/HR Acetaminophen 650 mg Q4HP PRN PO 09/19/24 10:00 09/21/24 07:51 650 MG Diagnostic Test (Pha) 1 strip Q6HR 09/22/24 12:00 09/24/24 18:37 1 STRIP Insulin Human Regular Q6HR SC 09/22/24 12:00 09/24/24 18:36 9 UNITS Dextrose 50 ml UD PRN IV 09/22/24 07:00 Cefepime HCl 50 ml @ 12.5 mls/hr DAILY@0900 IV 09/23/24 09:00 09/24/24 10:50 12.5 MLS/HR Metolazone 10 mg DAILY PO 09/23/24 10:00 09/24/24 10:51 10 MG Heparin Sodium (Porcine) 5,000 units Q12HR SC 09/23/24 10:00 09/23/24 22:29 5,000 UNITS Norepinephrine Bitartrate 32 mg/ Sodium Chloride 250 ml @ 0.938 mls/ hr Q24H IV 09/23/24 12:30 09/24/24 18:21 3.516 MLS/HR Furosemide 100 mg/ Sodium Chloride 110 ml @ 5.5 mls/hr Q20H IV 09/23/24 14:00 09/24/24 14:20 5.5 MLS/HR Micafungin Sodium 100 mg/Sodium Chloride 100 ml @ 100 mls/hr DAILY IV 09/24/24 10:00 09/24/24 10:46 100 MLS/HR Vasopressin 20 units/Sodium Chloride 100 ml @ 9 mls/hr Q11H7M IV 09/23/24 19:45 Examination Constitutional: Patient is on mechanical ventilation and off sedation with a RASS -3 Gen - no pallor, no icterus, no cyanosis, no clubbing Skin - Patients skin is warm and dry.. Skin of the left lower extremity below the knee is mottled with poor blood supply and cold limb HEENT - normocephalic, atraumatic, moist mucous membranes. Neck - full ROM, no LAD, JVD could not be assessed Pulmonary - B/L diminished breath sounds, no wheezing, no stridor. cardiovascular - variable S1,S2 heard, no added sounds no murmurs heard. GI - soft abdomen. no hepatospleenomegaly. Bowel sounds normoactive extremities- right LE AKA with 2+ edema, left LE with mottled appearacne and cold , pulse not palpable Neurological - patient was sedated and on mechanical ventilation, gag reflex present, pupils equal and reactive laboratory and microbiology Laboratory Tests 09/24/24 18:24 09/24/24 03:14 Test 09/24/24 03:14 Range/Units Serum Glucose 262 H 74-106 mg/dL Microbiology Date/Time Source Procedure Growth Status 09/22/24 15:00 Blood Blood Culture - Preliminary NO GROWTH AFTER 48 HOURS OF INCUBATION. Resulted 09/22/24 11:00 Sputum Gram Stain - Final Resulted 09/22/24 11:00 Sputum Respiratory Culture - Preliminary Resulted 09/22/24 10:50 Urine - [place] Urine Culture - Final Complete 09/16/24 19:55 Nose MRSA Screen - Final Methicillin Resistant S.aureus Complete Problem List/Assessment/Plan Problem List/Assessment/Plan Neurology Acute metabolic encephalopathy likely due to hypercapnia - on mechanical ventilation - RASS -3 Respiratory Acute on chronic hypercarbic respiratory failure COPD ?Pneumonia likely due to Gram +/-bacteria Severe pulmonary hypertension Obstructive sleep apnea - on mechanical ventilation - DuoNebs q.6 hours - sputum culture showing growth of MRSA - IV antibiotics vancomycin and cefepime and micafungin - repeated culture showing growth of yeast Cardiovascular Shock likely due to sepsis, cultures pending Acute on chronic heart failure with a reduced ejection fraction NYHA class 4 Paroxysmal atrial fibrillation , sick sinus syndrome with a dual-chamber pacemaker Coronary artery disease (coronary angiogram in 2020) Severe pulmonary hypertension with RV hypokinesis Peripheral artery disease with right above-knee amputation - on vasopressors with norepinephrine - on Lasix drip at 5 milligram/hour - anticoagulation currently on prophylactic heparin Nephrology CASS 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 UTI, ?acute cystitis - BUN creatinine improving - on HD, removed 2.5L on 09/18, and 2.5L on 09/19, further HD held - good urine output - nephrology on board Infectious disease Septic shock likely due to UTI versus pneumonia UTI growing E coli MRSA pneumonia - cultures repeated as the white count was increasing, patient was tachycardic - no wounds noted - on IV cefepime and vancomycin and micafungin Gastroenterology S/p diversion colostomy Right IJV TLC catheter placed on 09/24 Xavier's catheter Diet: Via NG tube PUD prophylaxis: Protonix DVT prophylaxis: heparin Goals of care discussed with the patient was family over 28 minutes. Full Code Critical care time spent excluding procedures: 63 minutes Plan discussed with Plan discussed with: Spouse (Sima Najera), Daughter, Other (RN ( Rose )) My Orders My Orders Orders - SEBAS ALLAN RESIDENT Procedure Category Date Status Time Chest Portable XY 09/24/24 Resulted 13:53 Complete Blood Count LAB 09/25/24 Verified 04:00 Creatinine LAB 09/25/24 Verified 04:00 Vancomycin,Random LAB 09/25/24 Verified 04:00 Lt Low Ext Art Duplex US 09/24/24 Taken 17:20 Dietary Evaluation Review Comments: 1) Matthieu 1 pk daily (ordered per ONS protocol) 2) CCHO 75gm + cardiac 3) Refer Plywood Scarfer Tender on DC 4) Continue current plan of care Expected Outcomes/Goals: To meet >75% estimated needs Fu 3-5 days Date of Service: Sep 24, 2024 Billing Provider: ENMA MORENO MD Common Visit Codes: [id number] CARE 30-74 MIN SEBAS ALLAN RESIDENT Sep 24, 2024 19:05 ENMA MORENO MD September 25, 2024 11:56
--- NOTE | 2024-09-24 19:15 | DVH ---
EXAM: US LOW EXT ART DUPLEX INDICATION: Status post removal of left femoral catheter with left groin swelling TECHNIQUE: Grayscale and color Doppler sonographic imaging evaluation of the right lower extremity ar terial system. Spectral analysis was performed. COMPARISON: None available at the time of dictation. FINDINGS: Left LOWER EXTREMITY ARTERIES: Common femoral artery: 38 cm/s, monophasic Proximal deep femoral artery: 34.2 cm/sec Proximal femoral artery: No flow Mid femoral artery: 25 cm/s, monophasic Distal femoral artery: 17 cm/s, monophasic Popliteal artery: 14 cm/s, monophasic Posterior tibial artery: 12 cm/s, monophasic Anterior tibial artery: cm/s, triphasic Dorsalis pedis artery: No flow IMPRESSION: No pseudoaneurysm is demonstrated. No flow within the left proximal superficial femoral artery and left dorsalis pedis artery consistent with occlusion. Decreased velocities with Monophasic within the remainder of the visualized left lower extremity tammy ubaldo which may be from significant atherosclerotic disease. REFERENCE VALUES: Normal velocity ranges (in cm/sec) are as follows: WOOD EXPERIMENTAL MECHANIC 95-140, SFA 75-105, popliteal 54-84, tibial 41-81 cm/sec. Stenosis categories: 1.5-2.0 x normal velocity = 30-49%, 2.0-4.0 x normal velocity = 50-75%, >4.0 x normal velocity = >75%. Critical Result: Stroke Alert Findings discussed with Diogo Rust, at 09/24/2024 07:12 PM, and acknowledged receipt and understandin g of the findings. ..
--- NOTE | 2024-09-24 20:33 | DVHPN2 ---
Progress Note Date Seen: Sep 24, 2024 Medical Necessity Reason Pt with a Central, PICC or Fol: Yes The following are medically ne: Central Line, Xavier Catheter Subjective Patient reports: Other Objective vital signs Vital Sign Date Time Temp Pulse Resp B/P (MAP) Pulse Ox O2 Delivery O2 Flow Rate FiO2 09/24/24 20:08 94 18 105/48 (67) 97 30 09/24/24 18:00 Mechanical Ventilator+ 09/24/24 16:00 99.5 99.5 09/24/24 10:00 30.0 Total Intake and Output 09/23/24 09/23/24 09/24/24 15:00 23:00 07:00 Intake Total 337.243 ml 388.579 ml 178.75 ml Output Total 1675 ml 1100 ml Balance 337.243 ml -1286.421 ml -921.25 ml medications Current Medications Medications Dose Ordered Sig/Paramjit Route Start Time Stop Time Status Last Admin Dose Admin Levalbuterol HCl 1.25 mg Q6HR NEB 09/12/24 06:00 09/24/24 18:32 1.25 MG Ipratropium [place] 0.5 mg Q6HR NEB 09/12/24 06:00 09/24/24 18:32 0.5 MG Pantoprazole Sodium 40 mg DAILY IV 09/13/24 10:00 09/24/24 10:43 40 MG Midazolam HCl 50 ml @ 1 mls/hr Q24H IV 09/17/24 05:30 09/19/24 02:00 1 MLS/HR Vancomycin HCl 0 ml @ 0 mls/hr UD IV 09/17/24 10:00 Enteral Nutritional Formula 1,000 ml 30ML/HR GT 09/17/24 11:00 09/23/24 17:38 1,000 ML Dextrose 50 ml UD PRN IV 09/17/24 11:00 Cancel Fentanyl Citrate 250 ml @ 2.5 mls/hr Q24H IV 09/17/24 11:30 09/24/24 13:34 2.5 MLS/HR Acetaminophen 650 mg Q4HP PRN PO 09/19/24 10:00 09/21/24 07:51 650 MG Diagnostic Test (Pha) 1 strip Q6HR 09/22/24 12:00 09/24/24 18:37 1 STRIP Insulin Human Regular Q6HR SC 09/22/24 12:00 09/24/24 18:36 9 UNITS Dextrose 50 ml UD PRN IV 09/22/24 07:00 Cefepime HCl 50 ml @ 12.5 mls/hr DAILY@0900 IV 09/23/24 09:00 09/24/24 10:50 12.5 MLS/HR Metolazone 10 mg DAILY PO 09/23/24 10:00 09/24/24 10:51 10 MG Heparin Sodium (Porcine) 5,000 units Q12HR SC 09/23/24 10:00 09/23/24 22:29 5,000 UNITS Norepinephrine Bitartrate 32 mg/ Sodium Chloride 250 ml @ 0.938 mls/ hr Q24H IV 09/23/24 12:30 09/24/24 18:21 3.516 MLS/HR Furosemide 100 mg/ Sodium Chloride 110 ml @ 5.5 mls/hr Q20H IV 09/23/24 14:00 09/24/24 14:20 5.5 MLS/HR Micafungin Sodium 100 mg/Sodium Chloride 100 ml @ 100 mls/hr DAILY IV 09/24/24 10:00 09/24/24 10:46 100 MLS/HR Vasopressin 20 units/Sodium Chloride 100 ml @ 9 mls/hr Q11H7M IV 09/23/24 19:45 Nystatin 1 applic BID TOP 09/24/24 22:00 UNV Examination: GENERAL:Abnormal, LUNGS:Abnormal, MSK:Abnormal, SKIN:Abnormal, NEURO:Abnormal laboratory and microbiology Laboratory Tests 09/24/24 18:24 09/24/24 03:14 Test 09/24/24 03:14 Range/Units Serum Glucose 262 H 74-106 mg/dL Microbiology Date/Time Source Procedure Growth Status 09/22/24 15:00 Blood Blood Culture - Preliminary NO GROWTH AFTER 48 HOURS OF INCUBATION. 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 Diastolic heart failure with severe right-sided heart failure Acute respiratory failure recs reduce lasix dose dc dopamine remove therese catheter hold off HD, continue diuretics good uop Plan discussed with: Other My Orders My Orders Orders - KILEY MARTINEZ MD Procedure Category Date Status Time Communication Order ORDERS 09/24/24 Transmitted 12:00 Dietary Evaluation Review Comments: 1) Matthieu 1 pk daily (ordered per ONS protocol) 2) CCHO 75gm + cardiac 3) Refer [employer] on DC 4) Continue current plan of care Expected Outcomes/Goals: To meet >75% estimated needs Fu 3-5 days KILEY MARTINEZ MD Sep 24, 2024 20:33
[2024-09-24] MEDS: NYSTATIN TOPICAL POWDER 15GM TOP SCH (21:56)
--- NOTE | 2024-09-24 22:33 | DVHPN2 ---
Progress Note - Dictate Date Seen: Sep 24, 2024 Medical Necessity Reason Pt with a Central, PICC or Fol: Yes The following are medically ne: Central Line, Xavier Catheter Subjective Patient was seen and evaluated in follow up in the ICU. Patient is intubated on ventilator. 30% FiO2. Patient failed CPAP trial this morning. WBC 18.4, BUN 60, CLAIMS TECHNICIAN 2.85, GLUC 215. Chest x-ray show mild pulmonary vascular congestion, small left pleural effusion. vital signs Vital Sign Date Time Temp Pulse Resp B/P (MAP) Pulse Ox O2 Delivery O2 Flow Rate FiO2 09/24/24 11:44 102 18 101/56 (71) 97 30 09/24/24 08:00 Mechanical Ventilator+ 09/24/24 04:00 99.3 99.3 Total Intake and Output 09/23/24 09/23/24 09/24/24 15:00 23:00 07:00 Intake Total 337.243 ml 388.579 ml 169.5 ml Output Total 1675 ml 1100 ml Balance 337.243 ml -1286.421 ml -930.5 ml medications Current Medications Medications Dose Ordered Sig/Paramjit Route Start Time Stop Time Status Last Admin Dose Admin Levalbuterol HCl 1.25 mg Q6HR NEB 09/12/24 06:00 09/24/24 11:44 1.25 MG Ipratropium [place] 0.5 mg Q6HR NEB 09/12/24 06:00 09/24/24 11:44 0.5 MG Pantoprazole Sodium 40 mg DAILY IV 09/13/24 10:00 09/24/24 10:43 40 MG Midazolam HCl 50 ml @ 1 mls/hr Q24H IV 09/17/24 05:30 09/19/24 02:00 1 MLS/HR Vancomycin HCl 0 ml @ 0 mls/hr UD IV 09/17/24 10:00 Enteral Nutritional Formula 1,000 ml 30ML/HR GT 09/17/24 11:00 09/23/24 17:38 1,000 ML Dextrose 50 ml UD PRN IV 09/17/24 11:00 Cancel Fentanyl Citrate 250 ml @ 2.5 mls/hr Q24H IV 09/17/24 11:30 09/20/24 06:33 7.5 MLS/HR Acetaminophen 650 mg Q4HP PRN PO 09/19/24 10:00 09/21/24 07:51 650 MG Diagnostic Test (Pha) 1 strip Q6HR 09/22/24 12:00 09/24/24 06:25 1 STRIP Insulin Human Regular Q6HR SC 09/22/24 12:00 09/24/24 06:32 6 UNITS Dextrose 50 ml UD PRN IV 09/22/24 07:00 Cefepime HCl 50 ml @ 12.5 mls/hr DAILY@0900 IV 09/23/24 09:00 09/24/24 10:50 12.5 MLS/HR Metolazone 10 mg DAILY PO 09/23/24 10:00 09/24/24 10:51 10 MG Heparin Sodium (Porcine) 5,000 units Q12HR SC 09/23/24 10:00 09/23/24 22:29 5,000 UNITS Norepinephrine Bitartrate 32 mg/ Sodium Chloride 250 ml @ 0.938 mls/ hr Q24H IV 09/23/24 12:30 09/23/24 14:09 2.813 MLS/HR Furosemide 100 mg/ Sodium Chloride 110 ml @ 5.5 mls/hr Q20H IV 09/23/24 14:00 09/23/24 17:38 5.5 MLS/HR Micafungin Sodium 100 mg/Sodium Chloride 100 ml @ 100 mls/hr DAILY IV 09/24/24 10:00 09/24/24 10:46 100 MLS/HR Vasopressin 20 units/Sodium Chloride 100 ml @ 9 mls/hr Q11H7M IV 09/23/24 19:45 objective GENERAL: Intubated on ventilator. EYES: PERRL, EOMI. Anicteric. HENT: Moist mucous membranes. LUNGS: breath sounds. CARDIOVASCULAR: Regular rate and rhythm. ABDOMEN: Soft, nontender and nondistended. Patient has a functioning colostomy bag noted to the right-sided abdomen. EXTREMITIES: Pitting edema in all extremities. Right AKA. SKIN: Warm, dry. laboratory and microbiology Laboratory Tests 09/24/24 03:14 Test 09/24/24 03:14 Range/Units Serum Glucose 262 H 74-106 mg/dL Problem List Acute on chronic hypoxic respiratory failure secondary to probable CHF exacerbation. Acute on chronic Moderately reduced congestive heart failure exacerbation-NYHA class 4. Pneumonia. AFib, rate controlled on Eliquis. COPD on 3 L home oxygen. Mild coronary artery disease. Sick sinus syndrome status post dual-chamber Biotronik pacemaker 2016. Obstructive apnea on CPAP. Acute cystitis. Diabetes mellitus type 2-A1c 6.4. ? CASS on CKD. Left-sided hydrocele. Anemia likely iron-deficiency. Secondary hypercoagulable state. History of left breast cancer status post surgery and tamoxifen therapy 2007. History of laparoscopic left radical nephrectomy 2013. History of colostomy 2019. Stage I decubitus sacral ulcer. Tunnel hemorrhoids. Diverticulosis. Assessment/Plan Continued all current supportive medical care. IV antibiotics as ordered. Dopamine drip. Diuretics with Lasix. GI prophylactics. Vasopressors for hemodynamic support. Additional plan as per the hospital course. Critical care time of 45 minutes provided to include time spent evaluation of patient at bedside, when appropriate patient/family education for diagnosis, treatment plan, review of pertinent medical information and discussion of care with specialty providers and PCP. Mechanical ventilator parameters, treatment and adjustments have personally been reviewed by me and treatment plan by forensic psychiatrist has also been reviewed. Dietary Evaluation Review Comments: 1) Matthieu 1 pk daily (ordered per [facility] protocol) 2[facility] 3) Refer [place] on DC 4) Continue current plan of care Expected Outcomes/Goals: To meet >75% estimated needs Fu 3-5 days Plan discussed with: Other EVERTON SHELDON MD Sep 24, 2024 11:58
[2024-09-25] VITALS (110 sets, daily range): BP systolic 81–150; BP diastolic 39–73; PULSE 83–97; RESP 11–33; TEMP 98.7–99.3; O2SAT 94–100
[2024-09-25 04:15] LABS: Basophils # (auto) 0.1 10 ^3/uL (0-0.2)
[2024-09-25 04:20] LABS: Basophils % (auto) 0.4 % (0.0-2.0); Eosinophils # (auto) 0.3 10 ^3/uL (0-0.8); Hematocrit 44.8 % (41.0-53.0); Hemoglobin 13.7 g/dL (13.5-17.5); Lymphocytes % (auto) 6.2 % (10.0-50.0); Mean Corpuscular Hemoglobin 24.2 pg (28.0-32.0); Mean Corpuscular Hgb Conc. 30.4 g/dL (32.0-36.0); Mean Corpuscular Volume 79.4 fL (80.0-100.0); Monocytes # (auto) 1.5 10 ^3/uL (0-1.3); Monocytes % (auto) 9.1 % (0.0-12.0); Neutrophils # (auto) 13.1 10 ^3/uL (1.6-8.6); Neutrophils % (auto) 82.3 % (37.0-80.0); Nucleated Red Blood Cells % 0.2 %; Platelet Count (auto) 191 10^3/uL (140-450); Red Blood Cells 5.65 10^6/uL (4.5-5.90); Red Cell Distribution Width 22.6 % (11.8-14.3)
[2024-09-25 04:32] LABS: Potassium 4.3 mmol/L (3.5-5.1); Sodium 140 mmol/L (136-145)
[2024-09-25 04:33] LABS: Anion Gap 15 (5-15); Carbon Dioxide 28 mmol/L (20-31)
[2024-09-25 04:38] LABS: BUN/Creatinine Ratio 20.6 (10.0-20.0)
[2024-09-25 04:40] LABS: Phosphorus 3.2 mg/dL (2.4-5.1)
[2024-09-25 04:52] LABS: Blood Urea Nitrogen 64 mg/dL (9-23); Calcium 10.9 mg/dL (8.7-10.4); Chloride 97 mmol/L (98-107); Glucose 292 mg/dL (74-106)
--- NOTE | 2024-09-25 05:54 | DVH ---
EXAM: XR Chest, 1 View CLINICAL INDICATION: on vent., B/L rales TECHNIQUE: Frontal view of the chest. COMPARISON: XY CHEST PORTABLE on DOS: 09/24/24, XY CHEST XRAY 1 VIEW on DOS: 09/24/24, XY CHEST JEEVAN BLE on DOS: 09/23/24, XY CHEST XRAY 1 VIEW on DOS: 09/22/24, XY CHEST PORTABLE on DOS: 09/21/24 FINDINGS: LUNGS AND PLEURAL SPACES: See below. HEART: Cardiomegaly with moderate congestion. MEDIASTINUM: Unremarkable. Normal mediastinal contour. BONES/JOINTS: Unremarkable. No acute fracture. TUBES, LINES AND DEVICES: Right internal jugular central venous catheter tip in the superior vena c delon. The endotracheal tube (ETT) is in satisfactory position. Enteric tube tip cannot be seen but i s below the diaphragm. Left-sided cardiac pacemaker. OTHER FINDINGS: . . IMPRESSION: Cardiomegaly with moderate congestion.
--- NOTE | 2024-09-25 07:20 | DVHCONRES ---
Date Seen: September 25, 2024 Resident Creating Document: HORTENCIA THAYER Jr., MD Referring Physician icu Reason for Consultation Severe peripheral vascular disease History of Present Illness 79-year-old morbidly obese white male with a past medical history of chronic kidney disease, solitary right kidney after left nephrectomy, colectomy with colostomy bag, congestive heart failure. Patient presents to the hospital complaining of shortness of breath. Over the last several days patient has been given diuretics to improve fluid removal however due to significant hypotension patient diuresis has been somewhat ineffective. Patient now has progressive wor sening shortness of breath nephrology consulted due to worsening renal function. Patient has been in admitted since the and has been intubated due to altered mental status and airway protection since then. On ultrasound was found to have occlusive disease of the common femoral SFA and tibial vessels on the left side. Patient already has a right AKA Past Medical History chronic kidney disease, solitary right kidney after left nephrectomy, colectomy with colostomy bag, congestive heart failure. Past Surgical History Right AKA, nephrectomy Family History: FH: CA (myocardial infarction) G8 MOTHER, Onset:Unknown G8 BROTHER, Onset:Unknown G8 SISTER, Onset:Unknown FH: skin cancer G8 FATHER, Onset:Unknown FH: testicular cancer G8 FATHER, Onset:Unknown Family history: Cardiovascular disease G8 MOTHER, Onset:Unknown G8 BROTHER, Onset:Unknown G8 SISTER, Onset:Unknown Family history: Diabetes mellitus G8 MOTHER G8 BROTHER G8 SISTER Allergies: Coded Allergies: Cephalexin (Verified Allergy, Severe, 09/06/15) Cefaclor (Verified Allergy, Unknown, 09/06/15) Home Meds Active Scripts Nystatin-Triamcinolone (Triamcinolone/Nystatin) Oin, 1 APPLIC TOP BID for 10 Days, #30 GRAMS 1 Refill Apply to groin b.i.d. while symptomatic. Stop at day 10 Prov:RADHA SANCHEZ TOPOLOGY PROFESSOR 02/01/24 Sulfamethoxazole W/Trimethopri (Bactrim Ds Tablet) 1 Tab Tb, 1 TAB PO BID for 10 Days, #20 TAB Prov:RADHA SANCHEZ TOPOLOGY PROFESSOR 02/01/24 Reported Medications Furosemide (Furosemide) 20 Mg Tab, 1 TAB PO DAILY for 90 Days, #90 01/24/24 Cilostazol (Cilostazol) 50 Mg Tab, 1 TAB PO BID for 90 Days, #180 01/24/24 Carvedilol (Carvedilol) 3.125 Mg Tab, 1 TAB PO BID for 90 Days, #180 01/24/24 Atorvastatin Calcium (Lipitor) 20 Mg Tab, 1 TAB PO DAILY for 90 Days, #90 01/24/24 Iczwsixyipd-Xcrafsslynjy-Xeqyf (Trelegy Ellipta 100-62.5-25 Mcg/INH) 1 Aer Aer, 1 PUFF INH DAILY for 90 Days, #180 01/24/24 Insulin Glargine (Lantus Solostar) 100 Unit/Ml Inj, UNIT SC UD for 75 Days, #15 01/24/24 Apixaban Base (ELIQUIS) 2.5 Mg Tab, 1 TAB PO BID for 90 Days, #180 09/06/15 Current Medications Current Medications Medications (Trade) Dose Ordered Sig/Parmajit Route PRN Reason Start Time Stop Time Status Last Admin Micafungin Sodium 100 mg/Sodium Chloride 100 ml @ 100 mls/hr DAILY IV 09/24/24 10:00 09/24/24 10:46 Nystatin (Mycostatin Powder) 1 applic BID TOP 09/24/24 22:00 09/24/24 21:56 Review of Systems The patient currently intubated chart reviewed Vital Signs Vital Signs Date Time Temp Pulse Resp B/P (MAP) Pulse Ox O2 Delivery O2 Flow Rate FiO2 09/25/24 06:37 87 18 114/52 (72) 97 30 09/25/24 06:00 Mechanical Ventilator+ 09/25/24 04:00 98.7 98.7 09/24/24 10:00 30.0 Physical Exam Head eyes ears nose and throat exam eyes are nonicteric conjunctiva is pink neck was supple no JVD no lymphadenopathy no carotid bruits lungs are clear to auscultation heart was regular rate and rhythm abdomen soft nontender obese lower extremities right AKA left side no palpable pedal pulses no palpable femoral pulse. No current wounds of the foot. Labs/Diagnostic Data Labs Test 09/25/24 06:03 09/25/24 03:29 09/24/24 06:19 09/24/24 03:14 Range/Units POC Glucose 300 H 70-106 mg/dl White Blood Count 16.0 H 4.4-10.8 10^3/uL Red Blood Count 5.65 4.5-5.90 10^6/uL Hemoglobin 13.7 13.5-17.5 g/dL Hematocrit 44.8 41.0-53.0 % Mean Corpuscular Volume 79.4 #L 80.0-100.0 fL Mean Corpuscular Hemoglobin 24.2 L 28.0-32.0 pg Mean Corpuscular Hemoglobin Concent 30.4 L 32.0-36.0 g/dL Red Cell Distribution Width 22.6 H 11.8-14.3 % Platelet Count 191 140-450 10^3/uL Mean Platelet Volume 8.9 6.9-10.8 fL Neutrophils (%) (Auto) 82.3 H 37.0-80.0 % Lymphocytes (%) (Auto) 6.2 L 10.0-50.0 % Monocytes (%) (Auto) 9.1 0.0-12.0 % Eosinophils (%) (Auto) 2.0 0.0-7.0 % Basophils (%) (Auto) 0.4 0.0-2.0 % Neutrophils # (Auto) 13.1 H 1.6-8.6 10 ^3/uL Lymphocytes # (Auto) 1.0 0.4-5.4 10 ^3/uL Monocytes # (Auto) 1.5 H 0-1.3 10 ^3/uL Eosinophils # (Auto) 0.3 0-0.8 10 ^3/uL Basophils # (Auto) 0.1 0-0.2 10 ^3/uL Nucleated Red Blood Cells 0.2 % Sodium Level 140 136-145 mmol/L Potassium Level 4.3 3.5-5.1 mmol/L Chloride Level 97 L 98-107 mmol/L Carbon Dioxide Level 28 20-31 mmol/L Anion Gap 15 5-15 Blood Urea Nitrogen 64 H 9-23 mg/dL Creatinine 3.11 H 0.700-1.30 mg/dL Glomerular Filtration Rate Calc 20 >90 mL/min BUN/Creatinine Ratio 20.6 H 10.0-20.0 Serum Glucose 292 H 74-106 mg/dL Calcium Level 10.9 H 8.7-10.4 mg/dL Phosphorus Level 3.2 2.4-5.1 mg/dL Random Vancomycin Level 18.7 H 5-10 ug/mL HIV (1&2) Antibody Negative Negative Blood Gas Specimen Type Arterial Blood Gas Sample Site Right radial Blood Gas Patient Temperature 37.0 Arterial Blood Date Drawn [id number] Arterial Blood pH 7.545 H 7.350-7.450 Arterial Blood Partial Pressure CO2 35.5 35.0-48.0 mmHg Arterial Blood Partial Pressure O2 79.9 L 83.0-108.0 mmHg Arterial Blood HCO3 30.0 H 21.0-28.0 mmol/L Arterial Blood Oxygen Saturation 96.1 94.0-98.0 % Arterial Blood Base Excess 7.4 H -2.0-3.0 mmol/L Arterial Blood Oxyhemoglobin 94.9 94.0-98.0 % Arterial Blood Carboxyhemoglobin 0.8 0.5-1.5 % Arterial Blood Methemoglobin 0.5 0.0-1.5 % Yohannes Test Modified Blood Gas Total Hemoglobin 14.60 13.5-17.5 g/dL Blood Gas Set Respiration Rate 18.0 Blood Gas Modality Vent - ac FiO2 % 30.0 Blood Gas Tidal Volume 450.0 Blood Gas PEEP or CPAP 5.0 Magnesium Level 1.9 1.6-2.6 mg/dL Total Bilirubin 2.0 H 0.2-1.0 mg/dL Aspartate Amino Transferase (AST) 29 13-40 U/L Alanine Aminotransferase (ALT) 17 7-40 U/L Alkaline Phosphatase 77 46-116 U/L Total Protein 6.8 5.7-8.2 g/dL Albumin 4.1 3.2-4.8 g/dL Test 09/23/24 03:19 09/22/24 06:53 09/20/24 03:00 09/17/24 19:47 Range/Units Prothrombin Time 12.0 H 9.3-11.8 sec Prothrombin Time INR 1.15 0.9-1.15 Activated Partial Thromboplast Time 29.1 24.5-34.5 SEC Blood Gas Critical Value Read Back Yes Blood Gas Notified Whom Sarabjit bill Blood Gas Notified Time [id number] Blood Gas Notified By Kimi henry Triglycerides Level 139 < 150 mg/dL Cholesterol Level 80 < 200 mg/dL LDL Cholesterol 30 < 100 mg/dL HDL Cholesterol 29 L 40-59 mg/dL Hepatitis A IgM Antibody Negative Hepatitis B Surface Antigen Negative Negative Hepatitis B Core IgM Antibody Negative Negative Hepatitis C Antibody Negative Negative Test 09/17/24 04:32 09/16/24 07:01 09/15/24 20:00 09/15/24 13:45 Range/Units Blood Gas EPAP 5 Blood Gas IPAP 18 Blood Gas Comments 18 bur 14 Lactic Acid Level 1.4 0.4-2.0 mmol/L Blood Gas Liter Flow 3.00 Urine Creatinine 141.86 H 30.0-125.0 mg/dL Urine Sodium 11 L 40-220 mmol/L Test 09/15/24 10:28 09/15/24 01:12 09/14/24 22:12 09/13/24 06:07 Range/Units Differential Total Cells Counted 100.0 100 Neutrophils % (Manual) 87 H 37.0-80.0 Band Neutrophils % (Manual) 1 Lymphocytes % (Manual) 5 L 10.0-50.0 Monocytes % (Manual) 7 0-12 Eosinophils % (Manual) 0 0-7 Basophils % (Manual) 0 0.0-2.0 Metamyelocytes % (manual) 0 Myelocytes % (Manual) 0 Promyelocytes % (Manual) 0 Blast Cells % (Manual) 0 Reactive Lymphocytes 0 Platelet Estimate Adequate Hypochromasia (manual) Slight Poikilocytosis (manual) Slight Anisocytosis (manual) Slight Microcytosis Slight Tear Drop Cells Few Ovalocytes Few Ihsan Cells Few B-Type Natriuretic Peptide 761.05 0-100 pg/mL Urine Total Protein 87.7 H 1-14 mg/dL Stool Occult Blood Sample #3 Negative Negative Test 09/12/24 03:31 09/11/24 23:43 09/11/24 23:15 09/11/24 19:06 Range/Units Hemoglobin A1c 6.4 H <5.7 % A1C Iron Level 27 L 65-175 ug/dL Total Iron Binding Capacity 338 250-425 ug/dL Percent Iron Saturation 8.0 L 20-55 % Ferritin 19.8 L 22-322 ng/mL Vitamin B12 Level 607 211-911 pg/mL Vitamin D 25-Hydroxy 67.3 30.0-100 ng/mL Thyroid Stimulating Hormone (TSH) 3.87 0.55-4.78 uIU/mL Influenza Type A Antigen Negative Negative Influenza Type B Antigen Negative Negative SARS-CoV-2 Antigen (Rapid) Negative NEGATIVE Urine Color Light-yellow Yellow Urine Clarity Clear Clear Urine pH 5.0 5.0-9.0 Urine Specific [place] 1.011 1.001-1.035 Urine Protein Negative Negative Urine Ketones Negative Negative Urine Blood Negative Negative /uL Urine Nitrite Negative Negative Urine Bilirubin Negative Negative Urine Urobilinogen Normal Negative mg/dL Urine Leukocyte Esterase 3+ Negative /uL Urine RBC 1 0 - 3 /hpf Urine Microscopic WBC 29 H 0-3 /HPF Urine Squamous Epithelial Cells None seen <5 /hpf Urine Bacteria Many H None Seen /hpf Urine Protein/Creatinine Ratio 0.31 Urine Glucose Normal Normal mg/dL Urine Opiates Screen Neg NEGATIVE Urine Fentanyl Screen Neg NEGATIVE Urine Barbiturates Screen Neg NEGATIVE Urine Phencyclidine Screen Neg NEGATIVE Urine Amphetamines Screen Neg NEGATIVE Urine Benzodiazepines Screen Neg NEGATIVE Urine Cocaine Screen Neg NEGATIVE Urine Cannabinoids Screen Neg NEGATIVE Troponin I High Sensitivity 21 </=54 ng/L Test 09/11/24 18:21 Range/Units Lipase 23 12-53 U/L Microbiology Date/Time Source Procedure Growth Status 09/22/24 15:00 Blood Blood Culture - Preliminary NO GROWTH AFTER 48 HOURS OF INCUBATION. Resulted 09/22/24 11:00 Sputum Gram Stain - Final Resulted 09/22/24 11:00 Sputum Respiratory Culture - Preliminary Resulted 09/22/24 10:50 Urine - [place] Urine Culture - Final Complete 09/16/24 19:55 Nose MRSA Screen - Final Methicillin Resistant S.aureus Complete EXAM: US LT LOW EXT ART DUPLEX INDICATION: Status post removal of left femoral catheter with left groin swelling TECHNIQUE: Grayscale and color Doppler sonographic imaging evaluation of the right lower extremity arterial system. Spectral analysis was performed. COMPARISON: None available at the time of dictation. FINDINGS: Left LOWER EXTREMITY ARTERIES: Common femoral artery: 38 cm/s, monophasic Proximal deep femoral artery: 34.2 cm/sec Proximal femoral artery: No flow Mid femoral artery: 25 cm/s, monophasic Distal femoral artery: 17 cm/s, monophasic Popliteal artery: 14 cm/s, monophasic Posterior tibial artery: 12 cm/s, monophasic Anterior tibial artery: cm/s, triphasic Dorsalis pedis artery: No flow IMPRESSION: No pseudoaneurysm is demonstrated. No flow within the left proximal superficial femoral artery and left dorsalis pedis artery consistent with occlusion. Decreased velocities with Monophasic within the remainder of the visualized left lower extremity arteries which may be from significant atherosclerotic disease. Assessment Severe left lower extremity peripheral vascular disease At this point in time no need for any surgical intervention. Recommend offloading boot to the left foot. Proper skin care. If patient were to develop a wound it would be very difficult to heal and would require above-knee amputation. Plan/Recommendation Severe left lower extremity peripheral vascular disease At this point in time no need for any surgical intervention. Recommend offloading boot to the left foot. Proper skin care. If patient were to develop a wound it would be very difficult to heal and would require above-knee amputation. Plan discussed with: Patient HORTENCIA THAYER Jr., MD September 25, 2024 07:20
[2024-09-25 08:28] LABS: Base Excess 5.3 mmol/L (-2.0-3.0)
[2024-09-25] MEDS ORDERED: DEXTROSE (50%) 50ML SYRG IV PRN (09:30)
[2024-09-25] MEDS: MUPIROCIN 2% OINT 15gm or 22gm FOR MRSA NARES EACHNOSTRI SCH (10:00)
[2024-09-25] MEDS: FUROSEMIDE 20 MG/2 ML VIAL IV ONE (10:57)
--- NOTE | 2024-09-25 10:57 | DVHPN2 ---
Progress Note Date Seen: September 25, 2024 Medical Necessity Reason Pt with a Central, PICC or Fol: Yes The following are medically ne: Central Line, Xavier Catheter Subjective Patient reports: Other (Patient remains intubated) Review of Systems: Deferred Objective vital signs Vital Sign Date Time Temp Pulse Resp B/P (MAP) Pulse Ox O2 Delivery O2 Flow Rate FiO2 09/25/24 09:45 89 18 110/52 (71) 97 30 09/25/24 08:21 Mechanical Ventilator+ 09/25/24 08:00 99.3 99.3 09/24/24 10:00 30.0 Total Intake and Output 09/24/24 09/24/24 09/25/24 15:00 23:00 07:00 Intake Total 223.70 ml 324.236 ml 178.0 ml Output Total 1050 ml 850 ml Balance 223.70 ml -725.764 ml -672.0 ml medications Current Medications Medications Dose Ordered Sig/Paramjit Route Start Time Stop Time Status Last Admin Dose Admin Levalbuterol HCl 1.25 mg Q6HR NEB 09/12/24 06:00 09/25/24 06:36 1.25 MG Ipratropium [place] 0.5 mg Q6HR NEB 09/12/24 06:00 09/25/24 06:36 0.5 MG Pantoprazole Sodium 40 mg DAILY IV 09/13/24 10:00 09/24/24 10:43 40 MG Midazolam HCl 50 ml @ 1 mls/hr Q24H IV 09/17/24 05:30 09/19/24 02:00 1 MLS/HR Vancomycin HCl 0 ml @ 0 mls/hr UD IV 09/17/24 10:00 Enteral Nutritional Formula 1,000 ml 30ML/HR GT 09/17/24 11:00 09/23/24 17:38 1,000 ML Dextrose 50 ml UD PRN IV 09/17/24 11:00 Cancel Fentanyl Citrate 250 ml @ 2.5 mls/hr Q24H IV 09/17/24 11:30 09/24/24 13:34 2.5 MLS/HR Acetaminophen 650 mg Q4HP PRN PO 09/19/24 10:00 09/21/24 07:51 650 MG Cefepime HCl 50 ml @ 12.5 mls/hr DAILY@0900 IV 09/23/24 09:00 5/1/25 08:40 12.5 MLS/HR Heparin Sodium (Porcine) 5,000 units Q12HR SC 09/23/24 10:00 09/24/24 21:59 5,000 UNITS Norepinephrine Bitartrate 32 mg/ Sodium Chloride 250 ml @ 0.938 mls/ hr Q24H IV 09/23/24 12:30 09/24/24 18:21 3.516 MLS/HR Micafungin Sodium 100 mg/Sodium Chloride 100 ml @ 100 mls/hr DAILY IV 09/24/24 10:00 09/24/24 10:46 100 MLS/HR Vasopressin 20 units/Sodium Chloride 100 ml @ 9 mls/hr Q11H7M IV 09/23/24 19:45 Nystatin 1 applic BID TOP 09/24/24 22:00 09/24/24 21:56 1 APPLIC Insulin Glargine 15 units DAILY@1000 SC 09/25/24 10:00 Diagnostic Test (Pha) 1 strip IQ4HR 09/25/24 12:00 Insulin Human Regular IQ4HR SC 09/25/24 12:00 Dextrose 50 ml UD PRN IV 09/25/24 09:30 Furosemide 40 mg BIDD IV 09/25/24 18:00 Mupirocin 1 applic BID EACHNOSTRI 09/25/24 10:00 09/30/24 09:59 Examination: GENERAL:Abnormal, LUNGS:Abnormal, MSK:Abnormal (Right BKA left lower extremity wounds), SKIN:Abnormal, NEURO:Abnormal laboratory and microbiology Laboratory Tests 09/25/24 03:29 Test 09/25/24 03:29 Range/Units Serum Glucose 292 H 74-106 mg/dL Microbiology Date/Time Source Procedure Growth Status 09/22/24 15:00 Blood Blood Culture - Preliminary NO GROWTH AFTER 48 HOURS OF INCUBATION. 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 Diastolic heart failure with severe right-sided heart failure Acute respiratory failure recs DC Lasix drip and metolazone--switch to IV pushes Lasix nonoliguric for now remove therese catheter hold off HD, continue diuretics Plan discussed with: Other My Orders My Orders Orders - KILEY MARTINEZ MD Procedure Category Date Status Time Communication Order ORDERS 09/24/24 Transmitted 12:00 Dietary Evaluation Review Comments: 1) Matthieu 1 pk daily (ordered per ONS protocol) 2) CCHO 75gm + cardiac 3) Refer Planning Associate on DC 4) Continue current plan of care Expected Outcomes/Goals: To meet >75% estimated needs Fu 3-5 days KILEY MARTINEZ MD September 25, 2024 10:56
[2024-09-25] MEDS: INSULIN LANTUS (GLARGINE) 1 /0.01ml (100units/ml) SC SCH (10:59)
[2024-09-25] MEDS: InsuLIN REG 1unit/0.01ml Soln (100units/ml) SC SCH (11:44)
[2024-09-25] MEDS: ACCU-CHEK COMFORT CURVE STRIP VI SCH (12:00)
[2024-09-25] MEDS: NOREPINEPHRINE BITARTRATE 32 MG in SODIUM CHL 0.9% 218 ML IV SCH (12:30)
[2024-09-25] MEDS: FUROSEMIDE 40 MG/4 ML VIAL IV SCH (19:34)
--- NOTE | 2024-09-25 20:12 | DVHPNRES ---
Progress Note Date Seen: September 25, 2024 Resident Creating Document: SEBAS ALLAN RESIDENT Medical Necessity Reason Pt with a Central, PICC or Fol: Yes The following are medically ne: Central Line, Xavier Catheter Subjective Review of Systems Patient was a 79-year-old male with a past medical history as described below presented to the hospital with a chief complaint of shortness of breath and edema for 2 weeks. Patient reported that he was apparently doing well until 2 weeks ago on 3.5 L home oxygen when he started to have worsening shortness of breath, orthopnea associated with cough with yellowish phlegm and also complained of edema, associated body aches, fatigue. Past medical history: COPD on 3.5 L oxygen per minute, heart failure with reduced ejection fraction, coronary artery disease, atrial fibrillation on Eliquis, sick sinus syndrome tongue, insulin dependent type 2 diabetes mellitus, obstructive sleep apnea on CPAP, peripheral artery disease Past surgical history: Left radical nephrectomy, dual-chamber pacemaker, right above-knee amputation Social history: Patient is nonambulatory, quit smoking in year 1999 and denies any alcohol or other drug use Home medications: Eliquis 2.5 mg b.i.d., carvedilol 3.125 mg b.i.d., cilostazol 50 mg b.i.d., Lasix 20 mg daily Review of systems Patient seen and examined at the bedside Good urine output overnight and in the day patient was on CPAP for about 1 hour but the patient did not meet the parameters and had to be put back on AC no fever overnight Objective vital signs Vital Sign Date Time Temp Pulse Resp B/P (MAP) Pulse Ox O2 Delivery O2 Flow Rate FiO2 09/25/24 19:34 112/54 09/25/24 18:45 92 17 97 09/25/24 18:26 30 09/25/24 18:26 Mechanical Ventilator+ 09/25/24 12:00 99.2 99.2 09/24/24 10:00 30.0 Total Intake and Output 09/24/24 09/24/24 09/25/24 15:00 23:00 07:00 Intake Total 223.70 ml 324.236 ml 178.0 ml Output Total 1050 ml 850 ml Balance 223.70 ml -725.764 ml -672.0 ml medications Current Medications Medications Dose Ordered Sig/Paramjit Route Start Time Stop Time Status Last Admin Dose Admin Levalbuterol HCl 1.25 mg Q6HR NEB 09/12/24 06:00 09/25/24 18:26 1.25 MG Ipratropium [place] 0.5 mg Q6HR NEB 09/12/24 06:00 09/25/24 18:26 0.5 MG Pantoprazole Sodium 40 mg DAILY IV 09/13/24 10:00 09/25/24 10:56 40 MG Midazolam HCl 50 ml @ 1 mls/hr Q24H IV 09/17/24 05:30 09/19/24 02:00 1 MLS/HR Vancomycin HCl 0 ml @ 0 mls/hr UD IV 09/17/24 10:00 Enteral Nutritional Formula 1,000 ml 30ML/HR GT 09/17/24 11:00 09/23/24 17:38 1,000 ML Dextrose 50 ml UD PRN IV 09/17/24 11:00 Cancel Fentanyl Citrate 250 ml @ 2.5 mls/hr Q24H IV 09/17/24 11:30 09/24/24 13:34 2.5 MLS/HR Acetaminophen 650 mg Q4HP PRN PO 09/19/24 10:00 09/21/24 07:51 650 MG Cefepime HCl 50 ml @ 12.5 mls/hr DAILY@0900 IV 09/23/24 09:00 09/25/24 08:40 12.5 MLS/HR Heparin Sodium (Porcine) 5,000 units Q12HR SC 09/23/24 10:00 09/25/24 10:59 5,000 UNITS Micafungin Sodium 100 mg/Sodium Chloride 100 ml @ 100 mls/hr DAILY IV 09/24/24 10:00 09/25/24 10:56 100 MLS/HR Vasopressin 20 units/Sodium Chloride 100 ml @ 9 mls/hr Q11H7M IV 09/23/24 19:45 Nystatin 1 applic BID TOP 09/24/24 22:00 09/25/24 11:00 1 APPLIC Insulin Glargine 15 units DAILY@1000 SC 09/25/24 10:00 09/25/24 10:59 15 UNITS Diagnostic Test (Pha) 1 strip IQ4HR 09/25/24 12:00 09/25/24 15:59 1 STRIP Insulin Human Regular IQ4HR SC 09/25/24 12:00 09/25/24 16:05 6 UNITS Dextrose 50 ml UD PRN IV 09/25/24 09:30 Furosemide 40 mg BIDD IV 09/25/24 18:00 09/25/24 19:34 40 MG Mupirocin 1 applic BID EACHNOSTRI 09/25/24 10:00 09/30/24 09:59 09/25/24 10:00 1 APPLIC Norepinephrine Bitartrate 32 mg/ Sodium Chloride 250 ml @ 0.234 mls/ hr Q24H IV 09/25/24 12:30 09/25/24 12:30 1.875 MLS/HR Examination Constitutional: Patient is on mechanical ventilation and off sedation with a RASS -3 Gen - no pallor, no icterus, no cyanosis, no clubbing Skin - Patients skin is warm and dry.. Skin of the left lower extremity below the knee is mottled with poor blood supply and cold limb HEENT - normocephalic, atraumatic, moist mucous membranes. Neck - full ROM, no LAD, JVD could not be assessed Pulmonary - B/L diminished breath sounds, no wheezing, no stridor. cardiovascular - variable S1,S2 heard, no added sounds no murmurs heard. GI - soft abdomen. no hepatospleenomegaly. Bowel sounds normoactive extremities- right LE AKA with 2+ edema, left LE with mottled appearacne and cold , pulse not palpable Neurological - patient was sedated and on mechanical ventilation, gag reflex present, pupils equal and reactive, responding to voice commands laboratory and microbiology Laboratory Tests 09/25/24 03:29 Test 09/25/24 03:29 Range/Units Serum Glucose 292 H 74-106 mg/dL Microbiology Date/Time Source Procedure Growth Status 09/22/24 15:00 Blood Blood Culture - Preliminary NO GROWTH AFTER 72 HOURS OF INCUBATION. Resulted 09/22/24 11:00 Sputum Gram Stain - Final Complete 09/22/24 11:00 Respiratory Culture - Final Presumptive Jessica tropicalis Complete 09/22/24 10:50 Urine - [place] Urine Culture - Final Complete 09/16/24 19:55 Nose MRSA Screen - Final Methicillin Resistant S.aureus Complete Problem List/Assessment/Plan Problem List/Assessment/Plan Neurology Acute metabolic encephalopathy likely due to hypercapnia - on mechanical ventilation - RASS -3 Respiratory Acute on chronic hypercarbic respiratory failure COPD MRSA Pneumonia Severe pulmonary hypertension Obstructive sleep apnea - on mechanical ventilation - DuoNebs q.6 hours - sputum culture showing growth of MRSA - repeated culture showing growth of yeast - IV antibiotics vancomycin and cefepime and micafungin Cardiovascular Shock likely due to sepsis, cultures pending Acute on chronic heart failure with a reduced ejection fraction NYHA class 4 Paroxysmal atrial fibrillation , sick sinus syndrome with a dual-chamber pacemaker Coronary artery disease (coronary angiogram in 2020) Severe pulmonary hypertension with RV hypokinesis Peripheral artery disease with right above-knee amputation - on vasopressors with norepinephrine - lasix 40mg bid - anticoagulation currently on prophylactic heparin Nephrology CASS 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 UTI, ?acute cystitis - on HD, removed 2.5L on 09/18, and 2.5L on 09/19, further HD held - good urine output - nephrology on board Infectious disease Septic shock likely due to UTI versus pneumonia UTI growing E coli MRSA pneumonia - on IV cefepime and vancomycin and micafungin Gastroenterology S/p diversion colostomy Right IJV TLC catheter placed on 09/24 Xavier's catheter placed on 09/12 Diet: Via NG tube PUD prophylaxis: Protonix DVT prophylaxis: heparin Goals of care discussed with the patient's for over 21 minutes. Full Code Critical care time spent excluding procedures: 61 minutes Plan discussed with Plan discussed with: Spouse (Sima Najera), Other (RN ( Meg )) My Orders My Orders Orders - SEBAS ALLAN RESIDENT Procedure Category Date Status Time Nystatin Powder PHA 09/24/24 In Process (Mycostatin Powder) 22:00 Vancomycin,Random LAB 09/26/24 Verified 04:00 Complete Blood Count LAB 09/26/24 Verified 04:00 Creatinine LAB 09/26/24 Verified 04:00 Insulin Lantus PHA 09/25/24 In Process (Glargine) (Lantus) 10:00 Glucose Blood PHA 09/25/24 In Process (Accu-Chek Comfort 12:00 Insulin R (Human) PHA 09/25/24 In Process (Insulin R) 12:00 Dextrose 50% Syringe PHA 09/25/24 In Process 09:30 Furosemide Injection PHA 09/25/24 In Process (Lasix Injection) 18:00 Mupirocin 2% Oint PHA 09/25/24 In Process Mrsa Nares (Bactroban 10:00 Dietary Evaluation Review Comments: 1) Matthieu 1 pk daily (ordered per ONS protocol) 2) CCHO 75gm + cardiac 3) Refer Assistant Plant Manager on DC 4) Continue current plan of care Expected Outcomes/Goals: To meet >75% estimated needs Fu 3-5 days Date of Service: September 25, 2024 Billing Provider: ENMA MORENO MD Common Visit Codes: [id number] CARE 30-74 MIN SEBAS ALLAN RESIDENT September 25, 2024 20:12 ENMA MORENO MD September 28, 2024 12:16
--- NOTE | 2024-09-25 22:12 | DVHPN2 ---
Progress Note - Dictate Date Seen: September 25, 2024 Medical Necessity Reason Pt with a Central, PICC or Fol: Yes The following are medically ne: Central Line, Xavier Catheter Subjective Patient was seen and evaluated in follow up in the ICU. Patient is intubated on ventilator. 30% FiO2. Patient was on CPAP for an hour but the patient did not meet the parameters and had to be put back on AC. WBC 16, CL 97, BUN 64, [employer] 3.11, GLUC 293, CA 10.9. Chest x-ray shows cardiomegaly with moderate congestion. LLE US shows no pseudoaneurysm is demonstrated. No flow within the left proximal superficial femoral artery and left dorsalis pedis artery consistent with occlusion. Decreased velocities with Monophasic within the remainder of the visualized left lower extremity arteries which may be from significant atherosclerotic disease. Per vascular surgeon no surgical intervention is needed at this time. vital signs Vital Sign Date Time Temp Pulse Resp B/P (MAP) Pulse Ox O2 Delivery O2 Flow Rate FiO2 09/25/24 10:57 120/54 09/25/24 09:45 89 18 97 30 09/25/24 08:21 Mechanical Ventilator+ 09/25/24 08:00 99.3 99.3 09/24/24 10:00 30.0 Total Intake and Output 09/24/24 09/24/24 09/25/24 15:00 23:00 07:00 Intake Total 223.70 ml 324.236 ml 178.0 ml Output Total 1050 ml 850 ml Balance 223.70 ml -725.764 ml -672.0 ml medications Current Medications Medications Dose Ordered Sig/Parajmit Route Start Time Stop Time Status Last Admin Dose Admin Levalbuterol HCl 1.25 mg Q6HR NEB 09/12/24 06:00 09/25/24 06:36 1.25 MG Ipratropium [place] 0.5 mg Q6HR NEB 09/12/24 06:00 09/25/24 06:36 0.5 MG Pantoprazole Sodium 40 mg DAILY IV 09/13/24 10:00 09/25/24 10:56 40 MG Midazolam HCl 50 ml @ 1 mls/hr Q24H IV 09/17/24 05:30 09/19/24 02:00 1 MLS/HR Vancomycin HCl 0 ml @ 0 mls/hr UD IV 09/17/24 10:00 Enteral Nutritional Formula 1,000 ml 30ML/HR GT 09/17/24 11:00 09/23/24 17:38 1,000 ML Dextrose 50 ml UD PRN IV 09/17/24 11:00 Cancel Fentanyl Citrate 250 ml @ 2.5 mls/hr Q24H IV 09/17/24 11:30 09/24/24 13:34 2.5 MLS/HR Acetaminophen 650 mg Q4HP PRN PO 09/19/24 10:00 09/21/24 07:51 650 MG Cefepime HCl 50 ml @ 12.5 mls/hr DAILY@0900 IV 09/23/24 09:00 09/25/24 08:40 12.5 MLS/HR Heparin Sodium (Porcine) 5,000 units Q12HR SC 09/23/24 10:00 09/25/24 10:59 5,000 UNITS Norepinephrine Bitartrate 32 mg/ Sodium Chloride 250 ml @ 0.938 mls/ hr Q24H IV 09/23/24 12:30 09/24/24 18:21 3.516 MLS/HR Micafungin Sodium 100 mg/Sodium Chloride 100 ml @ 100 mls/hr DAILY IV 09/24/24 10:00 09/25/24 10:56 100 MLS/HR Vasopressin 20 units/Sodium Chloride 100 ml @ 9 mls/hr Q11H7M IV 09/23/24 19:45 Nystatin 1 applic BID TOP 09/24/24 22:00 09/25/24 11:00 1 APPLIC Insulin Glargine 15 units DAILY@1000 SC 09/25/24 10:00 09/25/24 10:59 15 UNITS Diagnostic Test (Pha) 1 strip IQ4HR 09/25/24 12:00 Insulin Human Regular IQ4HR SC 09/25/24 12:00 09/25/24 11:44 9 UNITS Dextrose 50 ml UD PRN IV 09/25/24 09:30 Furosemide 40 mg BIDD IV 09/25/24 18:00 Mupirocin 1 applic BID EACHNOSTRI 09/25/24 10:00 09/30/24 09:59 09/25/24 10:00 1 APPLIC objective GENERAL: Intubated on ventilator. EYES: PERRL, EOMI. Anicteric. HENT: Moist mucous membranes. LUNGS: breath sounds. CARDIOVASCULAR: Regular rate and rhythm. ABDOMEN: Soft, nontender and nondistended. Patient has a functioning colostomy bag noted to the right-sided abdomen. EXTREMITIES: Pitting edema in all extremities. Right AKA. SKIN: Warm, dry. laboratory and microbiology Laboratory Tests 09/25/24 03:29 Test 09/25/24 03:29 Range/Units Serum Glucose 292 H 74-106 mg/dL Problem List Acute on chronic hypoxic respiratory failure secondary to probable CHF exacerbation. Acute on chronic Moderately reduced congestive heart failure exacerbation-NYHA class 4. Pneumonia. AFib, rate controlled on Eliquis. COPD on 3 L home oxygen. Mild coronary artery disease. Sick sinus syndrome status post dual-chamber Biotronik pacemaker 2015. Obstructive apnea on CPAP. Acute cystitis. Diabetes mellitus type 2-A1c 6.4. ? CASS on CKD. Left-sided hydrocele. Anemia likely iron-deficiency. Secondary hypercoagulable state. History of left breast cancer status post surgery and tamoxifen therapy 2007. History of laparoscopic left radical nephrectomy 2013. History of colostomy 2018. Stage I decubitus sacral ulcer. Tunnel hemorrhoids. Diverticulosis. Assessment/Plan Continued all current supportive medical care. IV antibiotics as ordered. Dopamine drip. Diuretics with Lasix. GI prophylactics. Vasopressors for hemodynamic support. Additional plan as per the hospital course. Critical care time of 45 minutes provided to include time spent evaluation of patient at bedside, when appropriate patient/family education for diagnosis, treatment plan, review of pertinent medical information and discussion of care with specialty providers and PCP. Mechanical ventilator parameters, treatment and adjustments have personally been reviewed by me and treatment plan by test designer has also been reviewed. Dietary Evaluation Review Comments: 1) Matthieu 1 pk daily (ordered per ONS protocol) 2) CCHO 75gm + cardiac 3) Refer Leather Stretcher on DC 4) Continue current plan of care Expected Outcomes/Goals: To meet >75% estimated needs Fu 3-5 days Plan discussed with: Other EVERTON SHELDON MD September 25, 2024 12:08
[2024-09-26] VITALS (101 sets, daily range): BP systolic 79–188; BP diastolic 34–83; PULSE 71–101; RESP 10–24; TEMP 98–98.9; O2SAT 92–100
[2024-09-26 04:08] LABS: Basophils # (auto) 0.1 10 ^3/uL (0-0.2); Eosinophils # (auto) 0.4 10 ^3/uL (0-0.8); Hemoglobin 12.5 g/dL (13.5-17.5); Lymphocytes # (auto) 0.6 10 ^3/uL (0.4-5.4)
[2024-09-26 04:10] LABS: Basophils % (auto) 0.7 % (0.0-2.0); Eosinophils % (auto) 2.4 % (0.0-7.0); Hematocrit 39.2 % (41.0-53.0); Lymphocytes % (auto) 4.3 % (10.0-50.0); Mean Corpuscular Hemoglobin 24.5 pg (28.0-32.0); Mean Corpuscular Volume 76.7 fL (80.0-100.0); Monocytes # (auto) 1.2 10 ^3/uL (0-1.3); Monocytes % (auto) 8.1 % (0.0-12.0); Neutrophils # (auto) 12.4 10 ^3/uL (1.6-8.6); Neutrophils % (auto) 84.5 % (37.0-80.0); Nucleated Red Blood Cells % 0.1 %; Platelet Count (auto) 207 10^3/uL (140-450); Red Blood Cells 5.11 10^6/uL (4.5-5.90); Red Cell Distribution Width 22.5 % (11.8-14.3); White Blood Cell 14.7 10^3/uL (4.4-10.8)
[2024-09-26 04:34] LABS: Anion Gap 14 (5-15); Sodium 144 mmol/L (136-145)
[2024-09-26 04:39] LABS: Calcium 11.4 mg/dL (8.7-10.4); Carbon Dioxide 35 mmol/L (20-31); Chloride 95 mmol/L (98-107); Potassium 3.2 mmol/L (3.5-5.1)
[2024-09-26 04:40] LABS: BUN/Creatinine Ratio 23.5 (10.0-20.0)
[2024-09-26 04:42] LABS: Blood Urea Nitrogen 79 mg/dL (9-23); Glucose 176 mg/dL (74-106); Phosphorus 2.9 mg/dL (2.4-5.1)
--- NOTE | 2024-09-26 05:10 | DVH ---
EXAM: XR Chest, 1 View CLINICAL INDICATION: on vent TECHNIQUE: Frontal view of the chest. COMPARISON: XY CHEST XRAY 1 VIEW on DOS: 09/25/24, XY CHEST PORTABLE on DOS: 09/24/24, XY CHEST XRAY 1 VIEW on DOS: 09/24/24, XY CHEST PORTABLE on DOS: 09/23/24, XY CHEST XRAY 1 VIEW on DOS: 09/22/24 FINDINGS: LUNGS AND PLEURAL SPACES: Unremarkable. No consolidation. No pneumothorax. HEART: Cardiomegaly without overt failure. MEDIASTINUM: Unremarkable. Normal mediastinal contour. BONES/JOINTS: Unremarkable. No acute fracture. TUBES, LINES AND DEVICES: Right internal jugular central venous catheter tip in the superior vena c delon. The endotracheal tube (ETT) is in satisfactory position. Enteric tube tip in the stomach. Lef t-sided cardiac pacemaker. OTHER FINDINGS: . . . IMPRESSION: Cardiomegaly without overt failure.
[2024-09-26] MEDS ORDERED: POTASSIUM CHL 20MEQ/100ML 100 ML IV SCH (06:15)
[2024-09-26] MEDS: POTASSIUM CHL 20MEQ/50ML 50 ML IV SCH (06:35)
[2024-09-26 08:18] LABS: Base Excess 6.8 mmol/L (-2.0-3.0)
--- NOTE | 2024-09-26 10:57 | DVHPN2 ---
Progress Note Date Seen: September 26, 2024 Medical Necessity Reason Pt with a Central, PICC or Fol: Yes The following are medically ne: Central Line, Xavier Catheter Subjective Patient reports: Other (intubated) Review of Systems: Deferred Objective vital signs Vital Sign Date Time Temp Pulse Resp B/P (MAP) Pulse Ox O2 Delivery O2 Flow Rate FiO2 09/26/24 10:14 82 18 129/63 (85) 97 30 09/26/24 10:10 Mechanical Ventilator+ 0 09/26/24 05:00 98.9 98.9 Total Intake and Output 09/25/24 09/25/24 09/26/24 15:00 23:00 07:00 Intake Total 92.0 ml 49.375 ml 181.422 ml Output Total 625 ml 625 ml Balance 92.0 ml -575.625 ml -443.578 ml medications Current Medications Medications Dose Ordered Sig/Paramjit Route Start Time Stop Time Status Last Admin Dose Admin Levalbuterol HCl 1.25 mg Q6HR NEB 09/12/24 06:00 09/26/24 06:16 1.25 MG Ipratropium [place] 0.5 mg Q6HR NEB 09/12/24 06:00 09/26/24 06:16 0.5 MG Pantoprazole Sodium 40 mg DAILY IV 09/13/24 10:00 09/25/24 10:56 40 MG Midazolam HCl 50 ml @ 1 mls/hr Q24H IV 09/17/24 05:30 09/19/24 02:00 1 MLS/HR Vancomycin HCl 0 ml @ 0 mls/hr UD IV 09/17/24 10:00 Enteral Nutritional Formula 1,000 ml 30ML/HR GT 09/17/24 11:00 09/25/24 23:53 1,000 ML Dextrose 50 ml UD PRN IV 09/17/24 11:00 Cancel Fentanyl Citrate 250 ml @ 2.5 mls/hr Q24H IV 09/17/24 11:30 09/24/24 13:34 2.5 MLS/HR Acetaminophen 650 mg Q4HP PRN PO 09/19/24 10:00 09/21/24 07:51 650 MG Cefepime HCl 50 ml @ 12.5 mls/hr DAILY@0900 IV 09/23/24 09:00 09/26/24 07:57 12.5 MLS/HR Heparin Sodium (Porcine) 5,000 units Q12HR SC 09/23/24 10:00 09/26/24 10:48 5,000 UNITS Micafungin Sodium 100 mg/Sodium Chloride 100 ml @ 100 mls/hr DAILY IV 09/24/24 10:00 09/25/24 10:56 100 MLS/HR Vasopressin 20 units/Sodium Chloride 100 ml @ 9 mls/hr Q11H7M IV 09/23/24 19:45 Nystatin 1 applic BID TOP 09/24/24 22:00 09/25/24 21:31 1 APPLIC Insulin Glargine 15 units DAILY@1000 SC 09/25/24 10:00 09/25/24 10:59 15 UNITS Diagnostic Test (Pha) 1 strip IQ4HR 09/25/24 12:00 09/26/24 07:52 1 STRIP Insulin Human Regular IQ4HR SC 09/25/24 12:00 09/26/24 07:53 6 UNITS Dextrose 50 ml UD PRN IV 09/25/24 09:30 Furosemide 40 mg BIDD IV 09/25/24 18:00 09/26/24 06:06 40 MG Mupirocin 1 applic BID EACHNOSTRI 09/25/24 10:00 09/30/24 09:59 09/25/24 21:31 1 APPLIC Norepinephrine Bitartrate 32 mg/ Sodium Chloride 250 ml @ 0.234 mls/ hr Q24H IV 09/25/24 12:30 09/26/24 06:47 1.406 MLS/HR Potassium Chloride 100 ml @ 50 mls/hr Q2H IV 09/26/24 06:15 09/26/24 10:14 UNV Sodium Chloride 1,000 ml @ 100 mls/hr Q10H IV 09/26/24 09:30 UNV Examination: GENERAL:Abnormal, MSK:Abnormal (rt bka), NEURO:Abnormal laboratory and microbiology Laboratory Tests 09/26/24 03:34 Test 09/26/24 03:34 Range/Units Serum Glucose 176 #H 74-106 mg/dL Microbiology Date/Time Source Procedure Growth Status 09/22/24 15:00 Blood Blood Culture - Preliminary NO GROWTH AFTER 72 HOURS OF INCUBATION. 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 Diastolic heart failure with severe right-sided heart failure Acute respiratory failure recs ivf challenge for 24 hrs removed therese catheter HD on hold Plan discussed with: Other My Orders My Orders Orders - KILEY MARTINEZ MD Procedure Category Date Status Time Sodium Chloride 0.9% PHA 09/26/24 Logged 09:30 Dietary Evaluation Review Comments: 1) Matthieu 1 pk daily (ordered per ONS protocol) 2) CCHO 75gm + cardiac 3) Refer [employer] on [place] 4) Continue current plan of care Expected Outcomes/Goals: To meet >75% estimated needs Fu 3-5 days KILEY MARTINEZ MD September 26, 2024 10:57
[2024-09-26] MEDS: SODIUM CHLORIDE 0.9% 1,000 ML IV SCH (12:39)
--- NOTE | 2024-09-26 15:02 | DVHPNRES ---
Progress Note Date Seen: September 26, 2024 Resident Creating Document: SEBAS ALLAN RESIDENT Medical Necessity Reason Pt with a Central, PICC or Fol: Yes The following are medically ne: Central Line, Xavier Catheter Subjective Review of Systems Patient was a 79-year-old male with a past medical history as described below presented to the hospital with a chief complaint of shortness of breath and edema for 2 weeks. Patient reported that he was apparently doing well until 2 weeks ago on 3.5 L home oxygen when he started to have worsening shortness of breath, orthopnea associated with cough with yellowish phlegm and also complained of edema, associated body aches, fatigue. Patient was initially treated on the floor and then was shifted to the ICU because of worsening respiratory status and initiated on BiPAP and was eventually intubated and put on mechanical ventilation. In the ICU patient was seen to have edema in the upper and lower extremities with low urine output. Patient was flipped CASS on CKD and underwent 2 dialysis sessions which helped improve his kidney function and he was put on Bumex drip and metolazone which diurese the patient really well. Patient likely has septic shock due to pneumonia and acute on chronic heart failure with reduced ejection fraction, underlying paroxysmal atrial fibrillation with a dual-chamber pacemaker, severe peripheral artery disease with right above-knee amputation. For current issues Septic shock is improving with patient was being taken off vasopressor support in the morning today on 09/26. Patient was on IV antibiotics with the vancomycin, cefepime, micafungin. Most recent sputum cultures growing Jessica, previous sputum cultures growing MRSA, recent blood cultures after 72 hours showing no growth and patient has been afebrile for the last 2 days. Solitary kidney with CASS on CKD likely due to cardiorenal improved but in the last 2 days patient creatinine increased slightly following which diuretic drip was discontinued and the patient was started on Lasix 40 mg b.i.d. nephrology on board and they have given the patient fluid challenge with 100 mL/hour fluids For cardiovascular patient has acute on chronic heart failure with a reduced ejection fraction at 40% EF, severe pulmonary hypertension, currently not on any vasopressors and maintaining blood pressure. Patient has a dual-chamber pacemaker, interrogation to be done. For respiratory, patient failed CPAP trial for 3rd day in a row today, sedation is wearing off and will be put on CPAP trial tomorrow again. Pulmonary congestion has significantly resolved and chest x-ray is improved and bilateral lung sounds have significantly improved. Past medical history: COPD on 3.5 L oxygen per minute, heart failure with reduced ejection fraction, coronary artery disease, atrial fibrillation on Eliquis, sick sinus syndrome tongue, insulin dependent type 2 diabetes mellitus, obstructive sleep apnea on CPAP, peripheral artery disease Past surgical history: Left radical nephrectomy, dual-chamber pacemaker, right above-knee amputation Social history: Patient is nonambulatory, quit smoking in year 1999 and denies any alcohol or other drug use Home medications: Eliquis 2.5 mg b.i.d., carvedilol 3.125 mg b.i.d., cilostazol 50 mg b.i.d., Lasix 20 mg daily Review of systems Patient seen and examined at the bedside Good urine output overnight and in the day, renal function slightly worsened, nephrology gave the patient a fluid challange patient was on CPAP for about 3 hours but the patient did not meet the parameters and had to be put back on AC no fever overnight Objective vital signs Vital Sign Date Time Temp Pulse Resp B/P (MAP) Pulse Ox O2 Delivery O2 Flow Rate FiO2 09/26/24 13:31 30 09/26/24 13:31 17 97 Mechanical Ventilator+ 09/26/24 13:31 80 09/26/24 13:24 102/52 (69) 09/26/24 10:10 0 09/26/24 05:00 98.9 98.9 Total Intake and Output 09/25/24 09/25/24 09/26/24 15:00 23:00 07:00 Intake Total 92.0 ml 49.375 ml 181.422 ml Output Total 625 ml 625 ml Balance 92.0 ml -575.625 ml -443.578 ml medications Current Medications Medications Dose Ordered Sig/Paramjit Route Start Time Stop Time Status Last Admin Dose Admin Levalbuterol HCl 1.25 mg Q6HR NEB 09/12/24 06:00 09/26/24 12:04 1.25 MG Ipratropium [place] 0.5 mg Q6HR NEB 09/12/24 06:00 09/26/24 12:04 0.5 MG Pantoprazole Sodium 40 mg DAILY IV 09/13/24 10:00 09/26/24 12:39 40 MG Midazolam HCl 50 ml @ 1 mls/hr Q24H IV 09/17/24 05:30 09/19/24 02:00 1 MLS/HR Vancomycin HCl 0 ml @ 0 mls/hr UD IV 09/17/24 10:00 Enteral Nutritional Formula 1,000 ml 30ML/HR GT 09/17/24 11:00 09/25/24 23:53 1,000 ML Dextrose 50 ml UD PRN IV 09/17/24 11:00 Cancel Fentanyl Citrate 250 ml @ 2.5 mls/hr Q24H IV 09/17/24 11:30 09/24/24 13:34 2.5 MLS/HR Acetaminophen 650 mg Q4HP PRN PO 09/19/24 10:00 09/21/24 07:51 650 MG Cefepime HCl 50 ml @ 12.5 mls/hr DAILY@0900 IV 09/23/24 09:00 09/26/24 07:57 12.5 MLS/HR Heparin Sodium (Porcine) 5,000 units Q12HR SC 09/23/24 10:00 09/26/24 10:48 5,000 UNITS Micafungin Sodium 100 mg/Sodium Chloride 100 ml @ 100 mls/hr DAILY IV 09/24/24 10:00 09/26/24 12:52 100 MLS/HR Vasopressin 20 units/Sodium Chloride 100 ml @ 9 mls/hr Q11H7M IV 09/23/24 19:45 Nystatin 1 applic BID TOP 09/24/24 22:00 09/26/24 10:00 1 APPLIC Insulin Glargine 15 units DAILY@1000 SC 09/25/24 10:00 09/26/24 10:00 15 UNITS Diagnostic Test (Pha) 1 strip IQ4HR 09/25/24 12:00 09/26/24 12:45 1 STRIP Insulin Human Regular IQ4HR SC 09/25/24 12:00 09/26/24 12:00 3 UNITS Dextrose 50 ml UD PRN IV 09/25/24 09:30 Furosemide 40 mg BIDD IV 09/25/24 18:00 09/26/24 06:06 40 MG Mupirocin 1 applic BID EACHNOSTRI 09/25/24 10:00 09/30/24 09:59 09/26/24 10:00 1 APPLIC Norepinephrine Bitartrate 32 mg/ Sodium Chloride 250 ml @ 0.234 mls/ hr Q24H IV 09/25/24 12:30 09/26/24 06:47 1.406 MLS/HR Potassium Chloride 100 ml @ 50 mls/hr Q2H IV 09/26/24 06:15 09/26/24 10:14 UNV Sodium Chloride 1,000 ml @ 100 mls/hr Q10H IV 09/26/24 09:30 09/26/24 12:39 100 MLS/HR Examination Constitutional: Patient is on mechanical ventilation and off sedation with a RASS -3 Gen - no pallor, no icterus, no cyanosis, no clubbing Skin - Patients skin is warm and dry.. Skin of the left lower extremity below the knee is mottled with poor blood supply and cold limb HEENT - normocephalic, atraumatic, moist mucous membranes. Neck - full ROM, no LAD, JVD could not be assessed Pulmonary - B/L diminished breath sounds, no wheezing, no stridor. cardiovascular - variable S1,S2 heard, no added sounds no murmurs heard. GI - soft abdomen. no hepatospleenomegaly. Bowel sounds normoactive extremities- right LE AKA with 2+ edema, left LE with mottled appearacne and cold , pulse not palpable Neurological - patient was sedated and on mechanical ventilation, gag reflex present, pupils equal and reactive, responding to voice commands laboratory and microbiology Laboratory Tests 09/26/24 03:34 Test 09/26/24 03:34 Range/Units Serum Glucose 176 #H 74-106 mg/dL Microbiology Date/Time Source Procedure Growth Status 09/22/24 15:00 Blood Blood Culture - Preliminary NO GROWTH AFTER 72 HOURS OF INCUBATION. Resulted 09/22/24 11:00 Sputum Gram Stain - Final Complete 09/22/24 11:00 Respiratory Culture - Final Presumptive Jessica tropicalis Complete 09/22/24 10:50 Urine - [place] Urine Culture - Final Complete 09/16/24 19:55 Nose MRSA Screen - Final Methicillin Resistant S.aureus Complete Problem List/Assessment/Plan Problem List/Assessment/Plan Neurology Acute metabolic encephalopathy likely due to hypercapnia - on mechanical ventilation - RASS -3 Respiratory Acute on chronic hypercarbic respiratory failure COPD MRSA Pneumonia Severe pulmonary hypertension Obstructive sleep apnea - on mechanical ventilation - DuoNebs q.6 hours - sputum culture showing growth of MRSA - repeated culture showing growth of yeast - IV antibiotics vancomycin and cefepime and micafungin Cardiovascular Shock likely due to sepsis, cultures pending Acute on chronic heart failure with a reduced ejection fraction NYHA class 4 Paroxysmal atrial fibrillation , sick sinus syndrome with a dual-chamber pacemaker Coronary artery disease (coronary angiogram in 2020) Severe pulmonary hypertension with RV hypokinesis Peripheral artery disease with right above-knee amputation - on vasopressors with norepinephrine - lasix 40mg bid - anticoagulation currently on prophylactic heparin Nephrology CASS 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 UTI, ?acute cystitis - on HD, removed 2.5L on 09/18, and 2.5L on 09/19, further HD held - good urine output - nephrology on board Infectious disease Septic shock likely due to UTI versus pneumonia UTI growing E coli MRSA pneumonia - on IV cefepime and vancomycin and micafungin Gastroenterology S/p diversion colostomy Right IJV TLC catheter placed on 09/24 Xavier's catheter placed on 09/12 Diet: Via NG tube PUD prophylaxis: Protonix DVT prophylaxis: heparin Goals of care discussed with the patient's for over 21 minutes. Full Code Critical care time spent excluding procedures: 45 minutes Plan discussed with Dr. Stacy Plan discussed with: Spouse (Sima Najera), Other (RN ( Henry )) My Orders My Orders Orders - SEBAS ALLAN RESIDENT Procedure Category Date Status Time Chest Xray 1 View XY 09/26/24 Resulted 04:00 Abg W/ Co-Ox RT 09/26/24 Logged 04:00 Dietary Evaluation Review Comments: 1) Matthieu 1 pk daily (ordered per ONS protocol) 2) CCHO 75gm + cardiac 3) Refer Food Service Team Member on DC 4) Continue current plan of care Expected Outcomes/Goals: To meet >75% estimated needs Fu 3-5 days SEBAS ALLAN RESIDENT September 26, 2024 15:01
--- NOTE | 2024-09-26 15:32 | DVHNC2 ---
Central Line Recorder of insertion practice: Correctional Counselor/Case Manager Occupation of angle shearer: Other (Resident) Indication: Hypotension Room prepared for procedure: Yes Correctional Counselor/Case Manager performed hand hygien: Yes Maximal sterile barrier precau: Mask/Eye shield, Sterile gown, Cap, Sterlie gloves, Large sterlie drape Skin Preparation: Chlorhexidine gluconate, Providine iodine, Alcohol Skin preparation completely dr: Yes Insertion site: Right, Internal jugular Central line catheter type: [id number] dialysis Number of lumens: 3 Central line exchanged over a: Yes Antiseptic ointment applied to: Yes Post Assessment: Chest X-Ray, Proper placement Informed consent obtained: Yes Notes Date of Service: Sep 24, 2024 Billing Provider: ENMA MORENO MD Common Visit Codes: PROCEDURE ONLY Procedure Codes: [id number] NON-TUNNEL CV CATH SEBAS ALLAN RESIDENT September 26, 2024 15:32 ENMA MORENO MD September 28, 2024 12:19
--- NOTE | 2024-09-26 19:07 | DVHPN2 ---
Progress Note - Dictate Date Seen: September 26, 2024 Medical Necessity Reason Pt with a Central, PICC or Fol: Yes The following are medically ne: Central Line, Xavier Catheter Subjective Patient was seen and evaluated in follow up in the ICU. Patient is intubated on ventilator. 30% FiO2. Patient's pacemaker was interrogated. WBC 14.7, K 3.2, CO2 35, BUN 79, RIVER CAPTAIN 3.36, GLUC 203. Chest x-ray showed cardiomegaly without overt failure. vital signs Vital Sign Date Time Temp Pulse Resp B/P (MAP) Pulse Ox O2 Delivery O2 Flow Rate FiO2 09/26/24 10:58 83 23 122/56 (78) 97 30 09/26/24 10:10 Mechanical Ventilator+ 0 09/26/24 05:00 98.9 98.9 Total Intake and Output 09/25/24 09/25/24 09/26/24 15:00 23:00 07:00 Intake Total 92.0 ml 49.375 ml 181.422 ml Output Total 625 ml 625 ml Balance 92.0 ml -575.625 ml -443.578 ml medications Current Medications Medications Dose Ordered Sig/Paramjit Route Start Time Stop Time Status Last Admin Dose Admin Levalbuterol HCl 1.25 mg Q6HR NEB 09/12/24 06:00 09/26/24 06:16 1.25 MG Ipratropium [place] 0.5 mg Q6HR NEB 09/12/24 06:00 09/26/24 06:16 0.5 MG Pantoprazole Sodium 40 mg DAILY IV 09/13/24 10:00 09/25/24 10:56 40 MG Midazolam HCl 50 ml @ 1 mls/hr Q24H IV 09/17/24 05:30 09/19/24 02:00 1 MLS/HR Vancomycin HCl 0 ml @ 0 mls/hr UD IV 09/17/24 10:00 Enteral Nutritional Formula 1,000 ml 30ML/HR GT 09/17/24 11:00 09/25/24 23:53 1,000 ML Dextrose 50 ml UD PRN IV 09/17/24 11:00 Cancel Fentanyl Citrate 250 ml @ 2.5 mls/hr Q24H IV 09/17/24 11:30 09/24/24 13:34 2.5 MLS/HR Acetaminophen 650 mg Q4HP PRN PO 09/19/24 10:00 09/21/24 07:51 650 MG Cefepime HCl 50 ml @ 12.5 mls/hr DAILY@0900 IV 09/23/24 09:00 09/26/24 07:57 12.5 MLS/HR Heparin Sodium (Porcine) 5,000 units Q12HR SC 09/23/24 10:00 09/26/24 10:48 5,000 UNITS Micafungin Sodium 100 mg/Sodium Chloride 100 ml @ 100 mls/hr DAILY IV 09/24/24 10:00 09/25/24 10:56 100 MLS/HR Vasopressin 20 units/Sodium Chloride 100 ml @ 9 mls/hr Q11H7M IV 09/23/24 19:45 Nystatin 1 applic BID TOP 09/24/24 22:00 09/25/24 21:31 1 APPLIC Insulin Glargine 15 units DAILY@1000 SC 09/25/24 10:00 09/25/24 10:59 15 UNITS Diagnostic Test (Pha) 1 strip IQ4HR 09/25/24 12:00 09/26/24 07:52 1 STRIP Insulin Human Regular IQ4HR SC 09/25/24 12:00 09/26/24 07:53 6 UNITS Dextrose 50 ml UD PRN IV 09/25/24 09:30 Furosemide 40 mg BIDD IV 09/25/24 18:00 09/26/24 06:06 40 MG Mupirocin 1 applic BID EACHNOSTRI 09/25/24 10:00 09/30/24 09:59 09/25/24 21:31 1 APPLIC Norepinephrine Bitartrate 32 mg/ Sodium Chloride 250 ml @ 0.234 mls/ hr Q24H IV 09/25/24 12:30 09/26/24 06:47 1.406 MLS/HR Potassium Chloride 100 ml @ 50 mls/hr Q2H IV 09/26/24 06:15 09/26/24 10:14 UNV Sodium Chloride 1,000 ml @ 100 mls/hr Q10H IV 09/26/24 09:30 objective GENERAL: Intubated on ventilator. EYES: PERRL, EOMI. Anicteric. HENT: Moist mucous membranes. LUNGS: breath sounds. CARDIOVASCULAR: Regular rate and rhythm. ABDOMEN: Soft, nontender and nondistended. Patient has a functioning colostomy bag noted to the right-sided abdomen. EXTREMITIES: Pitting edema in all extremities. Right AKA. SKIN: Warm, dry. laboratory and microbiology Laboratory Tests 09/26/24 03:34 Test 09/26/24 03:34 Range/Units Serum Glucose 176 #H 74-106 mg/dL Problem List Acute on chronic hypoxic respiratory failure secondary to probable CHF exacerbation. Acute on chronic Moderately reduced congestive heart failure exacerbation-NYHA class 4. Pneumonia. AFib, rate controlled on Eliquis. COPD on 3 L home oxygen. Mild coronary artery disease. Sick sinus syndrome status post dual-chamber Biotronik pacemaker 2015. Obstructive apnea on CPAP. Acute cystitis. Diabetes mellitus type 2-A1c 6.4. ? CASS on CKD. Left-sided hydrocele. Anemia likely iron-deficiency. Secondary hypercoagulable state. History of left breast cancer status post surgery and tamoxifen therapy 2007. History of laparoscopic left radical nephrectomy 2013. History of colostomy 2018. Stage I decubitus sacral ulcer. Tunnel hemorrhoids. Diverticulosis. Assessment/Plan Continued all current supportive medical care. IV antibiotics as ordered. Dopamine drip. Diuretics with Lasix. GI prophylactics. Vasopressors for hemodynamic support. Additional plan as per the hospital course. Critical care time of 45 minutes provided to include time spent evaluation of patient at bedside, when appropriate patient/family education for diagnosis, treatment plan, review of pertinent medical information and discussion of care with specialty providers and PCP. Mechanical ventilator parameters, treatment and adjustments have personally been reviewed by me and treatment plan by hardware supplies sales representative has also been reviewed. Dietary Evaluation Review Comments: 1) Matthieu 1 pk daily (ordered per ONS protocol) 2) [facility] 75gm + cardiac 3) Refer Returned Goods Inspector on DC 4) Continue current plan of care Expected Outcomes/Goals: To meet >75% estimated needs Fu 3-5 days Plan discussed with: Other EVERTON SHELDON MD September 26, 2024 11:55
[2024-09-27] VITALS (104 sets, daily range): BP systolic 96–171; BP diastolic 43–93; PULSE 65–106; RESP 9–26; TEMP 98.3–99; O2SAT 55–100
[2024-09-27 04:04] LABS: Eosinophils # (auto) 0.3 10 ^3/uL (0-0.8); Lymphocytes # (auto) 0.8 10 ^3/uL (0.4-5.4); Nucleated Red Blood Cells % 0.1 %; Red Cell Distribution Width 22.9 % (11.8-14.3); White Blood Cell 11.6 10^3/uL (4.4-10.8)
[2024-09-27 04:05] LABS: Basophils # (auto) 0.1 10 ^3/uL (0-0.2); Basophils % (auto) 0.6 % (0.0-2.0); Eosinophils % (auto) 2.5 % (0.0-7.0); Hematocrit 39.1 % (41.0-53.0); Hemoglobin 11.7 g/dL (13.5-17.5); Lymphocytes % (auto) 6.9 % (10.0-50.0); Mean Corpuscular Hemoglobin 24.2 pg (28.0-32.0); Mean Corpuscular Volume 80.7 fL (80.0-100.0); Monocytes % (auto) 8.7 % (0.0-12.0); Neutrophils # (auto) 9.4 10 ^3/uL (1.6-8.6); Neutrophils % (auto) 81.3 % (37.0-80.0); Platelet Count (auto) 162 10^3/uL (140-450); Red Blood Cells 4.84 10^6/uL (4.5-5.90)
[2024-09-27 04:12] LABS: Chloride 102 mmol/L (98-107); Potassium 4.2 mmol/L (3.5-5.1)
[2024-09-27 04:13] LABS: Anion Gap 16 (5-15); Carbon Dioxide 27 mmol/L (20-31)
[2024-09-27 04:18] LABS: BUN/Creatinine Ratio 21.9 (10.0-20.0)
[2024-09-27 04:20] LABS: Blood Urea Nitrogen 74 mg/dL (9-23); Calcium 10.4 mg/dL (8.7-10.4); Glucose 177 mg/dL (74-106); Sodium 145 mmol/L (136-145)
--- NOTE | 2024-09-27 06:11 | DVH ---
CHEST RADIOGRAPH Indication: on vent Technique: Single frontal view of the chest was obtained COMPARISON: XY CHEST XRAY 1 VIEW on DOS: 09/26/24, XY CHEST XRAY 1 VIEW on DOS: 09/25/24, XY CHEST PORTAB LE on DOS: 09/24/24, XY CHEST XRAY 1 VIEW on DOS: 09/24/24, XY CHEST PORTABLE on DOS: 09/23/24 FINDINGS: Lines and Tubes: Unchanged. Lungs: No evidence of focal consolidation. Bibasilar atelectasis. Pleura: No effusion. No pneumothorax. Cardiomediastinal contours: Cardiomegaly. Bones: Unremarkable IMPRESSION: 1. No acute disease. 2. Cardiomegaly. 3. Lines and tubes unchanged.
--- NOTE | 2024-09-27 11:34 | DVHPN2 ---
Progress Note - Dictate Date Seen: September 27, 2024 Medical Necessity Reason Pt with a Central, PICC or Fol: Yes The following are medically ne: Central Line, Xavier Catheter vital signs Vital Sign Date Time Temp Pulse Resp B/P (MAP) Pulse Ox O2 Delivery O2 Flow Rate FiO2 09/27/24 10:26 101/50 09/27/24 10:01 69 18 98 30 09/27/24 08:00 Mechanical Ventilator+ 09/27/24 05:00 98.3 98.3 09/26/24 10:10 0 Total Intake and Output 09/26/24 09/26/24 09/27/24 15:00 23:00 07:00 Intake Total 300 ml 600 ml 858 ml Output Total 450 ml 525 ml Balance 300 ml 150 ml 333 ml medications Current Medications Medications Dose Ordered Sig/Paramjit Route Start Time Stop Time Status Last Admin Dose Admin Levalbuterol HCl 1.25 mg Q6HR NEB 09/12/24 06:00 09/27/24 11:25 1.25 MG Ipratropium [place] 0.5 mg Q6HR NEB 09/12/24 06:00 09/27/24 11:25 0.5 MG Pantoprazole Sodium 40 mg DAILY IV 09/13/24 10:00 09/27/24 09:49 40 MG Midazolam HCl 50 ml @ 1 mls/hr Q24H IV 09/17/24 05:30 09/19/24 02:00 1 MLS/HR Vancomycin HCl 0 ml @ 0 mls/hr UD IV 09/17/24 10:00 Enteral Nutritional Formula 1,000 ml 30ML/HR GT 09/17/24 11:00 09/25/24 23:53 1,000 ML Dextrose 50 ml UD PRN IV 09/17/24 11:00 Cancel Fentanyl Citrate 250 ml @ 2.5 mls/hr Q24H IV 09/17/24 11:30 09/24/24 13:34 2.5 MLS/HR Acetaminophen 650 mg Q4HP PRN PO 09/19/24 10:00 09/21/24 07:51 650 MG Cefepime HCl 50 ml @ 12.5 mls/hr DAILY@0900 IV 09/23/24 09:00 09/27/24 09:48 12.5 MLS/HR Heparin Sodium (Porcine) 5,000 units Q12HR SC 09/23/24 10:00 09/27/24 09:51 5,000 UNITS Micafungin Sodium 100 mg/Sodium Chloride 100 ml @ 100 mls/hr DAILY IV 09/24/24 10:00 09/27/24 10:26 100 MLS/HR Vasopressin 20 units/Sodium Chloride 100 ml @ 9 mls/hr Q11H7M IV 09/23/24 19:45 Nystatin 1 applic BID TOP 09/24/24 22:00 09/27/24 09:49 1 APPLIC Insulin Glargine 15 units DAILY@1000 SC 09/25/24 10:00 09/27/24 09:54 15 UNITS Diagnostic Test (Pha) 1 strip IQ4HR 09/25/24 12:00 09/27/24 08:10 1 STRIP Insulin Human Regular IQ4HR SC 09/25/24 12:00 09/27/24 08:11 2 UNITS Dextrose 50 ml UD PRN IV 09/25/24 09:30 Furosemide 40 mg BIDD IV 09/25/24 18:00 09/27/24 04:49 40 MG Mupirocin 1 applic BID EACHNOSTRI 09/25/24 10:00 09/30/24 09:59 09/27/24 09:49 1 APPLIC Norepinephrine Bitartrate 32 mg/ Sodium Chloride 250 ml @ 0.234 mls/ hr Q24H IV 09/25/24 12:30 09/26/24 06:47 1.406 MLS/HR Potassium Chloride 100 ml @ 50 mls/hr Q2H IV 09/26/24 06:15 09/26/24 10:14 UNV Sodium Chloride 1,000 ml @ 100 mls/hr Q10H IV 09/26/24 09:30 09/27/24 00:49 100 MLS/HR laboratory and microbiology Laboratory Tests 09/27/24 03:40 Test 09/27/24 03:40 Range/Units Serum Glucose 177 H 74-106 mg/dL Assessment/Plan mine laborer 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 79 yo male acute hypoxemic resp failure pneumonia CHF CASS events on mechanical ventilation s/p intubation peep 5 Fi02 35% patient not following commands labs and imaging reviewed ABG reviewed Compensated management plan sedation holidays daily when awake cpap ps 7/5 abg /parameters extubate when ready continue supportive care abx diuresis/HD monitor labs renal function replace lytes nutrition prophylaxis full code crit care time 3 5 min Dietary Evaluation Review Comments: 1) Matthieu 1 pk daily (ordered per ONS protocol) 2) CCHO 75gm + cardiac 3) Refer Production Editor on DC 4) Continue current plan of care Expected Outcomes/Goals: To meet >75% estimated needs Fu 3-5 days Plan discussed with: Other (Rn) MARCE SIMS MD September 27, 2024 11:34
--- NOTE | 2024-09-27 15:21 | DVHPN2 ---
Progress Note - Dictate Date Seen: September 27, 2024 Medical Necessity Reason Pt with a Central, PICC or Fol: Yes The following are medically ne: Central Line, Xavier Catheter Subjective Patient was seen and evaluated in follow up in the ICU. Patient is intubated on ventilator. 30% FiO2. WBC 11.6, BUN 74, EMPLOYEE COMMUNICATIONS SPECIALIST 3.38. Chest x-ray shows cardiomegaly. Patient failed CPAP trial earlier. vital signs Vital Sign Date Time Temp Pulse Resp B/P (MAP) Pulse Ox O2 Delivery O2 Flow Rate FiO2 09/27/24 11:25 73 19 126/58 (80) 96 30 09/27/24 10:00 Mechanical Ventilator+ 0 09/27/24 05:00 98.3 98.3 Total Intake and Output 09/26/24 09/26/24 09/27/24 15:00 23:00 07:00 Intake Total 300 ml 600 ml 858 ml Output Total 450 ml 525 ml Balance 300 ml 150 ml 333 ml medications Current Medications Medications Dose Ordered Sig/Paramjit Route Start Time Stop Time Status Last Admin Dose Admin Levalbuterol HCl 1.25 mg Q6HR NEB 09/12/24 06:00 09/27/24 11:25 1.25 MG Ipratropium [place] 0.5 mg Q6HR NEB 09/12/24 06:00 09/27/24 11:25 0.5 MG Pantoprazole Sodium 40 mg DAILY IV 09/13/24 10:00 09/27/24 09:49 40 MG Midazolam HCl 50 ml @ 1 mls/hr Q24H IV 09/17/24 05:30 09/19/24 02:00 1 MLS/HR Vancomycin HCl 0 ml @ 0 mls/hr UD IV 09/17/24 10:00 Enteral Nutritional Formula 1,000 ml 30ML/HR GT 09/17/24 11:00 09/25/24 23:53 1,000 ML Dextrose 50 ml UD PRN IV 09/17/24 11:00 Cancel Fentanyl Citrate 250 ml @ 2.5 mls/hr Q24H IV 09/17/24 11:30 09/24/24 13:34 2.5 MLS/HR Acetaminophen 650 mg Q4HP PRN PO 09/19/24 10:00 09/21/24 07:51 650 MG Cefepime HCl 50 ml @ 12.5 mls/hr DAILY@0900 IV 09/23/24 09:00 09/27/24 09:48 12.5 MLS/HR Heparin Sodium (Porcine) 5,000 units Q12HR SC 09/23/24 10:00 09/27/24 09:51 5,000 UNITS Micafungin Sodium 100 mg/Sodium Chloride 100 ml @ 100 mls/hr DAILY IV 09/24/24 10:00 09/27/24 10:26 100 MLS/HR Vasopressin 20 units/Sodium Chloride 100 ml @ 9 mls/hr Q11H7M IV 09/23/24 19:45 Nystatin 1 applic BID TOP 09/24/24 22:00 09/27/24 09:49 1 APPLIC Insulin Glargine 15 units DAILY@1000 SC 09/25/24 10:00 09/27/24 09:54 15 UNITS Diagnostic Test (Pha) 1 strip IQ4HR 09/25/24 12:00 09/27/24 08:10 1 STRIP Insulin Human Regular IQ4HR SC 09/25/24 12:00 09/27/24 08:11 2 UNITS Dextrose 50 ml UD PRN IV 09/25/24 09:30 Furosemide 40 mg BIDD IV 09/25/24 18:00 09/27/24 04:49 40 MG Mupirocin 1 applic BID EACHNOSTRI 09/25/24 10:00 09/30/24 09:59 09/27/24 09:49 1 APPLIC Norepinephrine Bitartrate 32 mg/ Sodium Chloride 250 ml @ 0.234 mls/ hr Q24H IV 09/25/24 12:30 09/26/24 06:47 1.406 MLS/HR Potassium Chloride 100 ml @ 50 mls/hr Q2H IV 09/26/24 06:15 09/26/24 10:14 UNV Sodium Chloride 1,000 ml @ 100 mls/hr Q10H IV 09/26/24 09:30 09/27/24 00:49 100 MLS/HR objective GENERAL: Intubated on ventilator. EYES: PERRL, EOMI. Anicteric. HENT: Moist mucous membranes. LUNGS: breath sounds. CARDIOVASCULAR: Regular rate and rhythm. ABDOMEN: Soft, nontender and nondistended. Patient has a functioning colostomy bag noted to the right-sided abdomen. EXTREMITIES: Pitting edema in all extremities. Right AKA. SKIN: Warm, dry. laboratory and microbiology Laboratory Tests 09/27/24 03:40 Test 09/27/24 03:40 Range/Units Serum Glucose 177 H 74-106 mg/dL Problem List Acute on chronic hypoxic respiratory failure secondary to probable CHF exacerbation. Acute on chronic Moderately reduced congestive heart failure exacerbation-NYHA class 4. Pneumonia. AFib, rate controlled on Eliquis. COPD on 3 L home oxygen. Mild coronary artery disease. Sick sinus syndrome status post dual-chamber Biotronik pacemaker 2015. Obstructive apnea on CPAP. Acute cystitis. Diabetes mellitus type 2-A1c 6.4. ? CASS on CKD. Left-sided hydrocele. Anemia likely iron-deficiency. Secondary hypercoagulable state. History of left breast cancer status post surgery and tamoxifen therapy 2007. History of laparoscopic left radical nephrectomy 2013. History of colostomy 2019. Stage I decubitus sacral ulcer. Tunnel hemorrhoids. Diverticulosis. Assessment/Plan Continued all current supportive medical care. IV antibiotics as ordered. Dopamine drip. Diuretics with Lasix. GI prophylactics. Vasopressors for hemodynamic support. Additional plan as per the hospital course. Critical care time of 45 minutes provided to include time spent evaluation of patient at bedside, when appropriate patient/family education for diagnosis, treatment plan, review of pertinent medical information and discussion of care with specialty providers and PCP. Mechanical ventilator parameters, treatment and adjustments have personally been reviewed by me and treatment plan by component design engineer has also been reviewed. Dietary Evaluation Review Comments: 1) Matthieu 1 pk daily (ordered per ONS protocol) 2) CCHO 75gm + cardiac 3) Refer Librarian Special Collections on DC 4) Continue current plan of care Expected Outcomes/Goals: To meet >75% estimated needs Fu 3-5 days Plan discussed with: Other EVERTON SHELDON MD September 27, 2024 11:50
--- NOTE | 2024-09-27 15:50 | DVHPN2 ---
Progress Note Date Seen: September 27, 2024 Medical Necessity Reason Pt with a Central, PICC or Fol: Yes The following are medically ne: Central Line, Xavier Catheter Subjective Patient reports: Other (Intubated, off pressors) Review of Systems: Deferred Objective vital signs Vital Sign Date Time Temp Pulse Resp B/P (MAP) Pulse Ox O2 Delivery O2 Flow Rate FiO2 09/27/24 15:37 86 18 115/52 (73) 95 30 09/27/24 14:00 Mechanical Ventilator+ 09/27/24 10:00 0 09/27/24 05:00 98.3 98.3 Total Intake and Output 09/26/24 09/26/24 09/27/24 15:00 23:00 07:00 Intake Total 300 ml 600 ml 858 ml Output Total 450 ml 525 ml Balance 300 ml 150 ml 333 ml medications Current Medications Medications Dose Ordered Sig/Paramjit Route Start Time Stop Time Status Last Admin Dose Admin Levalbuterol HCl 1.25 mg Q6HR NEB 09/12/24 06:00 09/27/24 11:25 1.25 MG Ipratropium [place] 0.5 mg Q6HR NEB 09/12/24 06:00 09/27/24 11:25 0.5 MG Pantoprazole Sodium 40 mg DAILY IV 09/13/24 10:00 09/27/24 09:49 40 MG Midazolam HCl 50 ml @ 1 mls/hr Q24H IV 09/17/24 05:30 09/19/24 02:00 1 MLS/HR Vancomycin HCl 0 ml @ 0 mls/hr UD IV 09/17/24 10:00 Enteral Nutritional Formula 1,000 ml 30ML/HR GT 09/17/24 11:00 09/25/24 23:53 1,000 ML Dextrose 50 ml UD PRN IV 09/17/24 11:00 Cancel Fentanyl Citrate 250 ml @ 2.5 mls/hr Q24H IV 09/17/24 11:30 09/24/24 13:34 2.5 MLS/HR Acetaminophen 650 mg Q4HP PRN PO 09/19/24 10:00 09/21/24 07:51 650 MG Cefepime HCl 50 ml @ 12.5 mls/hr DAILY@0900 IV 09/23/24 09:00 09/27/24 09:48 12.5 MLS/HR Heparin Sodium (Porcine) 5,000 units Q12HR SC 09/23/24 10:00 09/27/24 09:51 5,000 UNITS Micafungin Sodium 100 mg/Sodium Chloride 100 ml @ 100 mls/hr DAILY IV 09/24/24 10:00 09/27/24 10:26 100 MLS/HR Vasopressin 20 units/Sodium Chloride 100 ml @ 9 mls/hr Q11H7M IV 09/23/24 19:45 Nystatin 1 applic BID TOP 09/24/24 22:00 09/27/24 09:49 1 APPLIC Insulin Glargine 15 units DAILY@1000 SC 09/25/24 10:00 09/27/24 09:54 15 UNITS Diagnostic Test (Pha) 1 strip IQ4HR 09/25/24 12:00 09/27/24 12:00 1 STRIP Insulin Human Regular IQ4HR SC 09/25/24 12:00 09/27/24 08:11 2 UNITS Dextrose 50 ml UD PRN IV 09/25/24 09:30 Furosemide 40 mg BIDD IV 09/25/24 18:00 09/27/24 04:49 40 MG Mupirocin 1 applic BID EACHNOSTRI 09/25/24 10:00 09/30/24 09:59 09/27/24 09:49 1 APPLIC Norepinephrine Bitartrate 32 mg/ Sodium Chloride 250 ml @ 0.234 mls/ hr Q24H IV 09/25/24 12:30 09/26/24 06:47 1.406 MLS/HR Potassium Chloride 100 ml @ 50 mls/hr Q2H IV 09/26/24 06:15 09/26/24 10:14 UNV Sodium Chloride 1,000 ml @ 100 mls/hr Q10H IV 09/26/24 09:30 09/27/24 15:32 100 MLS/HR Methylprednisolone Sodium Succinate 40 mg Q8HR IV 09/27/24 22:00 Examination: GENERAL:Abnormal, CVS:Normal, MSK:Abnormal, NEURO:Abnormal laboratory and microbiology Laboratory Tests 09/27/24 03:40 Test 09/27/24 03:40 Range/Units Serum Glucose 177 H 74-106 mg/dL Microbiology Date/Time Source Procedure Growth Status 09/22/24 15:00 Blood Blood Culture - Final NO GROWTH AFTER 5 DAYS OF INCUBATION. 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 Diastolic heart failure with severe right-sided heart failure Acute respiratory failure Status post right BKA recs ivf challenge for 24 hrs--reduce IV fluid rate removed therese catheter HD on hold Plan discussed with: Other My Orders My Orders Orders - KILEY MARTINEZ MD Procedure Category Date Status Time NS PHA 09/27/24 Transmitted 16:00 Dietary Evaluation Review Comments: 1) Matthieu 1 pk daily (ordered per ONS protocol) 2) CCHO 75gm + cardiac 3) Refer Thermal Intelligence Analyst on DC 4) Continue current plan of care Expected Outcomes/Goals: To meet >75% estimated needs Fu 3-5 days KILEY MARTINEZ MD September 27, 2024 15:50
[2024-09-27] MEDS: SODIUM CHLORIDE 0.9% 1,000 ML IV SCH (16:00)
[2024-09-27] MEDS: VANCOMYCIN 500mg/100mL 100 ML IV ONE (17:49)
--- NOTE | 2024-09-27 18:29 | DVHPN2 ---
Subjective intubated Reviewed: H&P Changes from previous H/P or p: No Changes General: Per HPI Objective Vitals Vital Signs Date Time Temp Pulse Resp B/P (MAP) Pulse Ox O2 Delivery O2 Flow Rate FiO2 09/27/24 18:00 30 09/27/24 18:00 71 09/27/24 18:00 18 95 Mechanical Ventilator+ 09/27/24 17:49 110/49 09/27/24 12:00 98.8 98.8 09/27/24 10:00 0 Intake/Output Intake and Output 09/27/24 07:00 Intake Total 1758 ml Output Total 975 ml Balance 783 ml IV Total 1600 ml Tube Feeding 98 ml Other 60 ml Output Urine Total 900 ml Stool Total 75 ml General Appearance: Other (intubated) Lungs: Clear to auscultation Cardiovascular: Regular rate, Normal S1, Normal S2 Abdomen: Normal bowel sounds Medications Current Medications Medications Dose Ordered Sig/Paramijt Route Start Time Stop Time Status Last Admin Dose Admin Levalbuterol HCl 1.25 mg Q6HR NEB 09/12/24 06:00 09/27/24 11:25 1.[address] [place] 0.5 mg Q6HR NEB 09/12/24 06:00 09/27/24 11:25 0.5 MG Pantoprazole Sodium 40 mg DAILY IV 09/13/24 10:00 09/27/24 09:49 40 MG Midazolam HCl 50 ml @ 1 mls/hr Q24H IV 09/17/24 05:30 09/19/24 02:00 1 MLS/HR Vancomycin HCl 0 ml @ 0 mls/hr UD IV 09/17/24 10:00 Enteral Nutritional Formula 1,000 ml 30ML/HR GT 09/17/24 11:00 09/25/24 23:53 1,000 ML Dextrose 50 ml UD PRN IV 09/17/24 11:00 Cancel Fentanyl Citrate 250 ml @ 2.5 mls/hr Q24H IV 09/17/24 11:30 09/24/24 13:34 2.5 MLS/HR Acetaminophen 650 mg Q4HP PRN PO 09/19/24 10:00 09/21/24 07:51 650 MG Cefepime HCl 50 ml @ 12.5 mls/hr DAILY@0900 IV 09/23/24 09:00 09/27/24 09:48 12.5 MLS/HR Heparin Sodium (Porcine) 5,000 units Q12HR SC 09/23/24 10:00 09/27/24 09:51 5,000 UNITS Micafungin Sodium 100 mg/Sodium Chloride 100 ml @ 100 mls/hr DAILY IV 09/24/24 10:00 09/27/24 10:26 100 MLS/HR Vasopressin 20 units/Sodium Chloride 100 ml @ 9 mls/hr Q11H7M IV 09/23/24 19:45 Nystatin 1 applic BID TOP 09/24/24 22:00 09/27/24 09:49 1 APPLIC Insulin Glargine 15 units DAILY@1000 SC 09/25/24 10:00 09/27/24 09:54 15 UNITS Diagnostic Test (Pha) 1 strip IQ4HR 09/25/24 12:00 09/27/24 15:46 1 STRIP Insulin Human Regular IQ4HR SC 09/25/24 12:00 09/27/24 15:51 2 UNITS Dextrose 50 ml UD PRN IV 09/25/24 09:30 Furosemide 40 mg BIDD IV 09/25/24 18:00 09/27/24 17:49 40 MG Mupirocin 1 applic BID EACHNOSTRI 09/25/24 10:00 09/30/24 09:59 09/27/24 09:49 1 APPLIC Norepinephrine Bitartrate 32 mg/ Sodium Chloride 250 ml @ 0.234 mls/ hr Q24H IV 09/25/24 12:30 09/26/24 06:47 1.406 MLS/HR Potassium Chloride 100 ml @ 50 mls/hr Q2H IV 09/26/24 06:15 09/26/24 10:14 UNV Methylprednisolone Sodium Succinate 40 mg Q8HR IV 09/27/24 22:00 Sodium Chloride 1,000 ml @ 50 mls/hr Q20H IV 09/27/24 16:00 09/27/24 16:00 50 MLS/HR Laboratory Results Laboratory Tests 09/27/24 03:40 Chemistry Test 09/27/24 03:40 Calcium Level 10.4 mg/dL (8.7-10.4) Urinalysis Test 09/11/24 23:15 09/14/24 22:12 09/15/24 13:45 Urine Color Light-yellow (Yellow) Urine Clarity Clear (Clear) Urine pH 5.0 (5.0-9.0) Urine Specific [place] 1.011 (1.001-1.035) Urine Protein Negative (Negative) Urine Ketones Negative (Negative) Urine Blood Negative /uL (Negative) Urine Nitrite Negative (Negative) Urine Bilirubin Negative (Negative) Urine Urobilinogen Normal mg/dL (Negative) Urine Leukocyte Esterase 3+ /uL (Negative) Urine RBC 1 /hpf (0 - 3) Urine Microscopic WBC 29 /HPF (0-3) H Urine Squamous Epithelial Cells None seen /hpf (<5) Urine Bacteria Many /hpf (None Seen) H Urine Protein/Creatinine Ratio 0.31 Urine Glucose Normal mg/dL (Normal) Urine Total Protein 87.7 mg/dL (1-14) H Urine Creatinine 141.86 mg/dL (30.0-125.0) H Urine Sodium 11 mmol/L (40-220) L Blood Gas Results Test 09/27/24 07:40 Arterial Blood pH 7.491 (7.350-7.450) FiO2 % 30.0 Microbiology Microbiology Date/Time Source Procedure Growth Status 09/22/24 15:00 Blood Blood Culture - Final NO GROWTH AFTER 5 DAYS OF INCUBATION. Complete 09/22/24 11:00 Sputum Gram Stain - Final Complete 09/22/24 11:00 Respiratory Culture - Final Presumptive Jessica tropicalis Complete 09/22/24 10:50 Urine - [place] Urine Culture - Final Complete 09/16/24 19:55 Nose MRSA Screen - Final Methicillin Resistant S.aureus Complete Assessment/Plan Assessment/Plan Acute metabolic encephalopathy likely due to hypercapnia - on mechanical ventilation - RASS -3 Respiratory Acute on chronic hypercarbic respiratory failure COPD MRSA Pneumonia Severe pulmonary hypertension Obstructive sleep apnea - on mechanical ventilation - DuoNebs q.6 hours - sputum culture showing growth of MRSA - repeated culture showing growth of yeast - IV antibiotics vancomycin and cefepime and micafungin Cardiovascular Shock likely due to sepsis, cultures pending Acute on chronic heart failure with a reduced ejection fraction NYHA class 4 Paroxysmal atrial fibrillation , sick sinus syndrome with a dual-chamber pacemaker Coronary artery disease (coronary angiogram in 2020) Severe pulmonary hypertension with RV hypokinesis Peripheral artery disease with right above-knee amputation - on vasopressors with norepinephrine - lasix 40mg bid - anticoagulation currently on prophylactic heparin Nephrology CASS 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 UTI, ?acute cystitis - on HD, removed 2.5L on 09/18, and 2.5L on 09/19, further HD held - good urine output - nephrology on board Infectious disease Septic shock likely due to UTI versus pneumonia UTI growing E coli MRSA pneumonia - on IV cefepime and vancomycin and micafungin Gastroenterology S/p diversion colostomy Right IJV TLC catheter placed on 09/24 Xavier's catheter placed on 09/12 Diet: Via NG tube PUD prophylaxis: Protonix DVT prophylaxis: heparin Goals of care discussed with the patient's for over 21 minutes. Full Code Critical care time spent excluding procedures: 45 minutes Plan discussed with: Other (nurse) Date of Service: September 27, 2024 Billing Provider: BRY OAKLEY MD Common Visit Codes: [id number] CARE 30-74 MIN BRY OAKLEY MD September 27, 2024 18:29
[2024-09-27] MEDS: methylPREDNISolone SOD SUCC 40 MG/ML VL IV SCH (20:30)
[2024-09-28] VITALS (74 sets, daily range): BP systolic 92–153; BP diastolic 42–80; PULSE 71–97; RESP 9–30; TEMP 98.1–98.7; O2SAT 92–100
[2024-09-28 12:33] LABS: Base Excess 1.7 mmol/L (-2.0-3.0)
--- NOTE | 2024-09-28 12:56 | DVHPN2 ---
Progress Note Date Seen: September 28, 2024 Medical Necessity Reason Pt with a Central, PICC or Fol: Yes The following are medically ne: Central Line, Xavier Catheter Subjective Patient reports: Other (intubated) Review of Systems: Deferred Objective vital signs Vital Sign Date Time Temp Pulse Resp B/P (MAP) Pulse Ox O2 Delivery O2 Flow Rate FiO2 09/28/24 12:30 83 29 122/48 (72) 98 09/28/24 12:00 98.7 98.7 09/28/24 12:00 Mechanical Ventilator+ 30 30 09/27/24 10:00 0 Total Intake and Output 09/27/24 09/27/24 09/28/24 15:00 23:00 07:00 Intake Total 433 ml 309 ml Output Total 600 ml 725 ml Balance -167 ml -416 ml medications Current Medications Medications Dose Ordered Sig/Paramjit Route Start Time Stop Time Status Last Admin Dose Admin Levalbuterol HCl 1.25 mg Q6HR NEB 09/12/24 06:00 09/28/24 11:13 1.25 MG Ipratropium [place] 0.5 mg Q6HR NEB 09/12/24 06:00 09/28/24 11:13 0.5 MG Pantoprazole Sodium 40 mg DAILY IV 09/13/24 10:00 09/28/24 10:01 40 MG Midazolam HCl 50 ml @ 1 mls/hr Q24H IV 09/17/24 05:30 09/19/24 02:00 1 MLS/HR Vancomycin HCl 0 ml @ 0 mls/hr UD IV 09/17/24 10:00 Enteral Nutritional Formula 1,000 ml 30ML/HR GT 09/17/24 11:00 09/28/24 03:53 1,000 ML Dextrose 50 ml UD PRN IV 09/17/24 11:00 Cancel Fentanyl Citrate 250 ml @ 2.5 mls/hr Q24H IV 09/17/24 11:30 09/24/24 13:34 2.5 MLS/HR Acetaminophen 650 mg Q4HP PRN PO 09/19/24 10:00 09/21/24 07:51 650 MG Cefepime HCl 50 ml @ 12.5 mls/hr DAILY@0900 IV 09/23/24 09:00 09/28/24 08:45 12.5 MLS/HR Heparin Sodium (Porcine) 5,000 units Q12HR SC 09/23/24 10:00 09/28/24 10:00 5,000 UNITS Micafungin Sodium 100 mg/Sodium Chloride 100 ml @ 100 mls/hr DAILY IV 09/24/24 10:00 09/28/24 10:01 100 MLS/HR Vasopressin 20 units/Sodium Chloride 100 ml @ 9 mls/hr Q11H7M IV 09/23/24 19:45 Nystatin 1 applic BID TOP 09/24/24 22:00 09/27/24 20:29 1 APPLIC Insulin Glargine 15 units DAILY@1000 SC 09/25/24 10:00 09/28/24 10:00 15 UNITS Diagnostic Test (Pha) 1 strip IQ4HR 09/25/24 12:00 09/28/24 11:47 1 STRIP Insulin Human Regular IQ4HR SC 09/25/24 12:00 09/28/24 11:50 6 UNITS Dextrose 50 ml UD PRN IV 09/25/24 09:30 Furosemide 40 mg BIDD IV 09/25/24 18:00 09/28/24 06:34 40 MG Mupirocin 1 applic BID EACHNOSTRI 09/25/24 10:00 09/30/24 09:59 09/27/24 20:29 1 APPLIC Norepinephrine Bitartrate 32 mg/ Sodium Chloride 250 ml @ 0.234 mls/ hr Q24H IV 09/25/24 12:30 09/26/24 06:47 1.406 MLS/HR Potassium Chloride 100 ml @ 50 mls/hr Q2H IV 09/26/24 06:15 09/26/24 10:14 UNV Methylprednisolone Sodium Succinate 40 mg Q8HR IV 09/27/24 22:00 09/28/24 06:34 40 MG Sodium Chloride 1,000 ml @ 50 mls/hr Q20H IV 09/27/24 16:00 09/27/24 16:00 50 MLS/HR Examination: GENERAL:Abnormal, LUNGS:Abnormal, MSK:Abnormal, SKIN:Abnormal, NEURO:Abnormal laboratory and microbiology Laboratory Tests 09/27/24 03:40 Test 09/27/24 03:40 Range/Units Serum Glucose 177 H 74-106 mg/dL Microbiology Date/Time Source Procedure Growth Status 09/22/24 15:00 Blood Blood Culture - Final NO GROWTH AFTER 5 DAYS OF INCUBATION. 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 Diastolic heart failure with severe right-sided heart failure Acute respiratory failure Status post right BKA recs no new labs today s/p ivf removed therese catheter HD on hold Plan discussed with: Other My Orders My Orders Orders - KILEY MARTINEZ MD Procedure Category Date Status Time Sodium Chloride 0.9% PHA 09/27/24 In Process 16:00 Dietary Evaluation Review Comments: 1) Matthieu 1 pk daily (ordered per ONS protocol) 2) CCHO 75gm + cardiac 3) Refer Contact Centre Supervisor on DC 4) Continue current plan of care Expected Outcomes/Goals: To meet >75% estimated needs Fu 3-5 days KILEY MARTINEZ MD September 28, 2024 12:56
--- NOTE | 2024-09-28 13:16 | DVHPN2 ---
Progress Note - Dictate Date Seen: September 28, 2024 Medical Necessity Reason Pt with a Central, PICC or Fol: Yes The following are medically ne: Central Line, Xavier Catheter vital signs Vital Sign Date Time Temp Pulse Resp B/P (MAP) Pulse Ox O2 Delivery O2 Flow Rate FiO2 09/28/24 12:30 83 29 122/48 (72) 98 09/28/24 12:00 98.7 98.7 09/28/24 12:00 Mechanical Ventilator+ 30 30 09/27/24 10:00 0 Total Intake and Output 09/27/24 09/27/24 09/28/24 15:00 23:00 07:00 Intake Total 433 ml 309 ml Output Total 600 ml 725 ml Balance -167 ml -416 ml medications Current Medications Medications Dose Ordered Sig/Paramjit Route Start Time Stop Time Status Last Admin Dose Admin Levalbuterol HCl 1.25 mg Q6HR NEB 09/12/24 06:00 09/28/24 11:13 1.25 MG Ipratropium [place] 0.5 mg Q6HR NEB 09/12/24 06:00 09/28/24 11:13 0.5 MG Pantoprazole Sodium 40 mg DAILY IV 09/13/24 10:00 09/28/24 10:01 40 MG Midazolam HCl 50 ml @ 1 mls/hr Q24H IV 09/17/24 05:30 09/19/24 02:00 1 MLS/HR Vancomycin HCl 0 ml @ 0 mls/hr UD IV 09/17/24 10:00 Enteral Nutritional Formula 1,000 ml 30ML/HR GT 09/17/24 11:00 09/28/24 03:53 1,000 ML Dextrose 50 ml UD PRN IV 09/17/24 11:00 Cancel Fentanyl Citrate 250 ml @ 2.5 mls/hr Q24H IV 09/17/24 11:30 09/24/24 13:34 2.5 MLS/HR Acetaminophen 650 mg Q4HP PRN PO 09/19/24 10:00 09/21/24 07:51 650 MG Cefepime HCl 50 ml @ 12.5 mls/hr DAILY@0900 IV 09/23/24 09:00 09/28/24 08:45 12.5 MLS/HR Heparin Sodium (Porcine) 5,000 units Q12HR SC 09/23/24 10:00 5/4/25 10:00 5,000 UNITS Micafungin Sodium 100 mg/Sodium Chloride 100 ml @ 100 mls/hr DAILY IV 09/24/24 10:00 09/28/24 10:01 100 MLS/HR Vasopressin 20 units/Sodium Chloride 100 ml @ 9 mls/hr Q11H7M IV 09/23/24 19:45 Nystatin 1 applic BID TOP 09/24/24 22:00 09/27/24 20:29 1 APPLIC Insulin Glargine 15 units DAILY@1000 SC 09/25/24 10:00 09/28/24 10:00 15 UNITS Diagnostic Test (Pha) 1 strip IQ4HR 09/25/24 12:00 09/28/24 11:47 1 STRIP Insulin Human Regular IQ4HR SC 09/25/24 12:00 09/28/24 11:50 6 UNITS Dextrose 50 ml UD PRN IV 09/25/24 09:30 Furosemide 40 mg BIDD IV 09/25/24 18:00 09/28/24 06:34 40 MG Mupirocin 1 applic BID EACHNOSTRI 09/25/24 10:00 09/30/24 09:59 09/27/24 20:29 1 APPLIC Norepinephrine Bitartrate 32 mg/ Sodium Chloride 250 ml @ 0.234 mls/ hr Q24H IV 09/25/24 12:30 09/26/24 06:47 1.406 MLS/HR Potassium Chloride 100 ml @ 50 mls/hr Q2H IV 09/26/24 06:15 09/26/24 10:14 UNV Methylprednisolone Sodium Succinate 40 mg Q8HR IV 09/27/24 22:00 09/28/24 06:34 40 MG laboratory and microbiology Laboratory Tests 09/27/24 03:40 Test 09/27/24 03:40 Range/Units Serum Glucose 177 H 74-106 mg/dL Assessment/Plan technical training specialist rounds 79 yo male acute hypoxemic resp failure pneumonia CHF CASS events on mechanical ventilation s/p intubation peep 5 Fi02 35% Off sedation Beginning to wake up labs and imaging reviewed ABG reviewed Compensated management plan sedation holidays daily when awake cpap ps 7/5 abg /parameters extubate when ready continue supportive care abx diuresis/HD monitor labs renal function replace lytes nutrition prophylaxis full code crit care time 3 5 min Dietary Evaluation Review Comments: 1) Matthieu 1 pk daily (ordered per ONS protocol) 2) CCHO 75gm + cardiac 3) Refer Infectious Disease Technician on DC 4) Continue current plan of care Expected Outcomes/Goals: To meet >75% estimated needs Fu 3-5 days Plan discussed with: Other (Rn) MARCE SIMS MD September 28, 2024 13:16
[2024-09-28 13:57] LABS: Basophils # (auto) 0 10 ^3/uL (0-0.2); Basophils % (auto) 0.2 % (0.0-2.0); Eosinophils # (auto) 0 10 ^3/uL (0-0.8); Eosinophils % (auto) 0.1 % (0.0-7.0); Lymphocytes # (auto) 0.4 10 ^3/uL (0.4-5.4); Monocytes # (auto) 0.3 10 ^3/uL (0-1.3); White Blood Cell 9.2 10^3/uL (4.4-10.8)
[2024-09-28 13:59] LABS: Hematocrit 39.1 % (41.0-53.0); Mean Corpuscular Hemoglobin 24.7 pg (28.0-32.0); Mean Corpuscular Hgb Conc. 30.6 g/dL (32.0-36.0); Mean Corpuscular Volume 80.6 fL (80.0-100.0); Monocytes % (auto) 3.4 % (0.0-12.0); Neutrophils # (auto) 8.5 10 ^3/uL (1.6-8.6); Neutrophils % (auto) 92.3 % (37.0-80.0); Platelet Count (auto) 170 10^3/uL (140-450); Red Blood Cells 4.85 10^6/uL (4.5-5.90)
[2024-09-28 14:01] LABS: Red Cell Distribution Width 23.1 % (11.8-14.3)
[2024-09-28 14:04] LABS: Chloride 102 mmol/L (98-107); Potassium 3.8 mmol/L (3.5-5.1)
[2024-09-28 14:05] LABS: Anion Gap 17 (5-15); Carbon Dioxide 27 mmol/L (20-31)
[2024-09-28 14:10] LABS: BUN/Creatinine Ratio 22.4 (10.0-20.0)
[2024-09-28 14:14] LABS: Blood Urea Nitrogen 76 mg/dL (9-23); Calcium 10.6 mg/dL (8.7-10.4); Glucose 269 mg/dL (74-106); Sodium 146 mmol/L (136-145)
--- NOTE | 2024-09-28 15:15 | DVHPN2 ---
Subjective intubated Reviewed: H&P Changes from previous H/P or p: No Changes General: Per HPI Objective Vitals Vital Signs Date Time Temp Pulse Resp B/P (MAP) Pulse Ox O2 Delivery O2 Flow Rate FiO2 09/28/24 14:30 80 18 121/54 (76) 100 09/28/24 14:00 30 09/28/24 14:00 Mechanical Ventilator+ 09/28/24 12:00 98.7 98.7 09/27/24 10:00 0 Intake/Output Intake and Output 09/28/24 07:00 Intake Total 742 ml Output Total 1325 ml Balance -583 ml IV Total 350 ml Tube Feeding 332 ml Other 60 ml Output Urine Total 1300 ml Stool Total 25 ml General Appearance: Other (intubated) Lungs: Clear to auscultation Cardiovascular: Regular rate, Normal S1, Normal S2 Abdomen: Normal bowel sounds Medications Current Medications Medications Dose Ordered Sig/Paramjit Route Start Time Stop Time Status Last Admin Dose Admin Levalbuterol HCl 1.25 mg Q6HR NEB 09/12/24 06:00 09/28/24 11:13 1.25 MG Ipratropium [place] 0.5 mg Q6HR NEB 09/12/24 06:00 09/28/24 11:13 0.5 MG Pantoprazole Sodium 40 mg DAILY IV 09/13/24 10:00 09/28/24 10:01 40 MG Midazolam HCl 50 ml @ 1 mls/hr Q24H IV 09/17/24 05:30 09/19/24 02:00 1 MLS/HR Vancomycin HCl 0 ml @ 0 mls/hr UD IV 09/17/24 10:00 Enteral Nutritional Formula 1,000 ml 30ML/HR GT 09/17/24 11:00 09/28/24 03:53 1,000 ML Dextrose 50 ml UD PRN IV 09/17/24 11:00 Cancel Fentanyl Citrate 250 ml @ 2.5 mls/hr Q24H IV 09/17/24 11:30 09/24/24 13:34 2.5 MLS/HR Acetaminophen 650 mg Q4HP PRN PO 09/19/24 10:00 09/21/24 07:51 650 MG Cefepime HCl 50 ml @ 12.5 mls/hr DAILY@0900 IV 09/23/24 09:00 09/28/24 08:45 12.5 MLS/HR Heparin Sodium (Porcine) 5,000 units Q12HR SC 09/23/24 10:00 09/28/24 10:00 5,000 UNITS Micafungin Sodium 100 mg/Sodium Chloride 100 ml @ 100 mls/hr DAILY IV 09/24/24 10:00 09/28/24 10:01 100 MLS/HR Vasopressin 20 units/Sodium Chloride 100 ml @ 9 mls/hr Q11H7M IV 09/23/24 19:45 Nystatin 1 applic BID TOP 09/24/24 22:00 09/27/24 20:29 1 APPLIC Insulin Glargine 15 units DAILY@1000 SC 09/25/24 10:00 09/28/24 10:00 15 UNITS Diagnostic Test (Pha) 1 strip IQ4HR 09/25/24 12:00 09/28/24 11:47 1 STRIP Insulin Human Regular IQ4HR SC 09/25/24 12:00 09/28/24 11:50 6 UNITS Dextrose 50 ml UD PRN IV 09/25/24 09:30 Furosemide 40 mg BIDD IV 09/25/24 18:00 09/28/24 06:34 40 MG Mupirocin 1 applic BID EACHNOSTRI 09/25/24 10:00 09/30/24 09:59 09/27/24 20:29 1 APPLIC Norepinephrine Bitartrate 32 mg/ Sodium Chloride 250 ml @ 0.234 mls/ hr Q24H IV 09/25/24 12:30 09/26/24 06:47 1.406 MLS/HR Potassium Chloride 100 ml @ 50 mls/hr Q2H IV 09/26/24 06:15 09/26/24 10:14 UNV Methylprednisolone Sodium Succinate 40 mg Q8HR IV 09/27/24 22:00 09/28/24 13:55 40 MG Laboratory Results Laboratory Tests 09/28/24 13:50 Chemistry Test 09/28/24 13:50 Calcium Level 10.6 mg/dL (8.7-10.4) H Urinalysis Test 09/11/24 23:15 09/14/24 22:12 09/15/24 13:45 Urine Color Light-yellow (Yellow) Urine Clarity Clear (Clear) Urine pH 5.0 (5.0-9.0) Urine Specific [place] 1.011 (1.001-1.035) Urine Protein Negative (Negative) Urine Ketones Negative (Negative) Urine Blood Negative /uL (Negative) Urine Nitrite Negative (Negative) Urine Bilirubin Negative (Negative) Urine Urobilinogen Normal mg/dL (Negative) Urine Leukocyte Esterase 3+ /uL (Negative) Urine RBC 1 /hpf (0 - 3) Urine Microscopic WBC 29 /HPF (0-3) H Urine Squamous Epithelial Cells None seen /hpf (<5) Urine Bacteria Many /hpf (None Seen) H Urine Protein/Creatinine Ratio 0.31 Urine Glucose Normal mg/dL (Normal) Urine Total Protein 87.7 mg/dL (1-14) H Urine Creatinine 141.86 mg/dL (30.0-125.0) H Urine Sodium 11 mmol/L (40-220) L Blood Gas Results Test 09/28/24 12:13 Arterial Blood pH 7.417 (7.350-7.450) FiO2 % 30.0 Microbiology Microbiology Date/Time Source Procedure Growth Status 09/22/24 15:00 Blood Blood Culture - Final NO GROWTH AFTER 5 DAYS OF INCUBATION. Complete 09/22/24 11:00 Sputum Gram Stain - Final Complete 09/22/24 11:00 Respiratory Culture - Final Presumptive Jessica tropicalis Complete 09/22/24 10:50 Urine - [place] Urine Culture - Final Complete 09/16/24 19:55 Nose MRSA Screen - Final Methicillin Resistant S.aureus Complete Assessment/Plan Assessment/Plan Acute metabolic encephalopathy likely due to hypercapnia - on mechanical ventilation - RASS -3 Respiratory Acute on chronic hypercarbic respiratory failure COPD MRSA Pneumonia Severe pulmonary hypertension Obstructive sleep apnea - on mechanical ventilation - DuoNebs q.6 hours - sputum culture showing growth of MRSA - repeated culture showing growth of yeast - IV antibiotics vancomycin and cefepime and micafungin Cardiovascular Shock likely due to sepsis, cultures pending Acute on chronic heart failure with a reduced ejection fraction NYHA class 4 Paroxysmal atrial fibrillation , sick sinus syndrome with a dual-chamber pacemaker Coronary artery disease (coronary angiogram in 2020) Severe pulmonary hypertension with RV hypokinesis Peripheral artery disease with right above-knee amputation - on vasopressors with norepinephrine - lasix 40mg bid - anticoagulation currently on prophylactic heparin Nephrology CASS 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 UTI, ?acute cystitis - on HD, removed 2.5L on 09/18, and 2.5L on 09/19, further HD held - good urine output - nephrology on board Infectious disease Septic shock likely due to UTI versus pneumonia UTI growing E coli MRSA pneumonia - on IV cefepime and vancomycin and micafungin Gastroenterology S/p diversion colostomy Right IJV TLC catheter placed on 09/24 Xavier's catheter placed on 09/12 Diet: Via NG tube PUD prophylaxis: Protonix DVT prophylaxis: heparin Goals of care discussed with the patient's for over 21 minutes. Full Code Critical care time spent excluding procedures: 45 minutes Plan discussed with: Other (nurse) Date of Service: September 28, 2024 Billing Provider: BRY OAKLEY MD Common Visit Codes: [id number] CARE 30-74 MIN BRY OAKLEY MD September 28, 2024 15:15
--- NOTE | 2024-09-28 21:42 | DVHPN2 ---
Progress Note - Dictate Date Seen: September 28, 2024 Medical Necessity Reason Pt with a Central, PICC or Fol: Yes The following are medically ne: Central Line, Xavier Catheter Subjective Patient was seen and evaluated in follow up in the ICU. Patient is intubated on ventilator. FiO2 remains at 30%. NA 146, BUN 76, Information Technology Coordinator 3.39. Planned for CPAP trial in the morning. vital signs Vital Sign Date Time Temp Pulse Resp B/P (MAP) Pulse Ox O2 Delivery O2 Flow Rate FiO2 09/28/24 12:30 83 29 122/48 (72) 98 09/28/24 12:00 98.7 98.7 09/28/24 12:00 Mechanical Ventilator+ 30 30 09/27/24 10:00 0 Total Intake and Output 09/27/24 09/27/24 09/28/24 15:00 23:00 07:00 Intake Total 433 ml 309 ml Output Total 600 ml 725 ml Balance -167 ml -416 ml medications Current Medications Medications Dose Ordered Sig/Paramjit Route Start Time Stop Time Status Last Admin Dose Admin Levalbuterol HCl 1.25 mg Q6HR NEB 09/12/24 06:00 09/28/24 11:13 1.25 MG Ipratropium [place] 0.5 mg Q6HR NEB 09/12/24 06:00 09/28/24 11:13 0.5 MG Pantoprazole Sodium 40 mg DAILY IV 09/13/24 10:00 09/28/24 10:01 40 MG Midazolam HCl 50 ml @ 1 mls/hr Q24H IV 09/17/24 05:30 09/19/24 02:00 1 MLS/HR Vancomycin HCl 0 ml @ 0 mls/hr UD IV 09/17/24 10:00 Enteral Nutritional Formula 1,000 ml 30ML/HR GT 09/17/24 11:00 09/28/24 03:53 1,000 ML Dextrose 50 ml UD PRN IV 09/17/24 11:00 Cancel Fentanyl Citrate 250 ml @ 2.5 mls/hr Q24H IV 09/17/24 11:30 09/24/24 13:34 2.5 MLS/HR Acetaminophen 650 mg Q4HP PRN PO 09/19/24 10:00 09/21/24 07:51 650 MG Cefepime HCl 50 ml @ 12.5 mls/hr DAILY@0900 IV 09/23/24 09:00 09/28/24 08:45 12.5 MLS/HR Heparin Sodium (Porcine) 5,000 units Q12HR SC 09/23/24 10:00 09/28/24 10:00 5,000 UNITS Micafungin Sodium 100 mg/Sodium Chloride 100 ml @ 100 mls/hr DAILY IV 09/24/24 10:00 09/28/24 10:01 100 MLS/HR Vasopressin 20 units/Sodium Chloride 100 ml @ 9 mls/hr Q11H7M IV 09/23/24 19:45 Nystatin 1 applic BID TOP 09/24/24 22:00 09/27/24 20:29 1 APPLIC Insulin Glargine 15 units DAILY@1000 SC 09/25/24 10:00 09/28/24 10:00 15 UNITS Diagnostic Test (Pha) 1 strip IQ4HR 09/25/24 12:00 09/28/24 11:47 1 STRIP Insulin Human Regular IQ4HR SC 09/25/24 12:00 09/28/24 11:50 6 UNITS Dextrose 50 ml UD PRN IV 09/25/24 09:30 Furosemide 40 mg BIDD IV 09/25/24 18:00 09/28/24 06:34 40 MG Mupirocin 1 applic BID EACHNOSTRI 09/25/24 10:00 09/30/24 09:59 09/27/24 20:29 1 APPLIC Norepinephrine Bitartrate 32 mg/ Sodium Chloride 250 ml @ 0.234 mls/ hr Q24H IV 09/25/24 12:30 09/26/24 06:47 1.406 MLS/HR Potassium Chloride 100 ml @ 50 mls/hr Q2H IV 09/26/24 06:15 09/26/24 10:14 UNV Methylprednisolone Sodium Succinate 40 mg Q8HR IV 09/27/24 22:00 09/28/24 06:34 40 MG objective GENERAL: Intubated on ventilator. EYES: PERRL, EOMI. Anicteric. HENT: Moist mucous membranes. LUNGS: breath sounds. CARDIOVASCULAR: Regular rate and rhythm. ABDOMEN: Soft, nontender and nondistended. Patient has a functioning colostomy bag noted to the right-sided abdomen. EXTREMITIES: Pitting edema in all extremities. Right AKA. SKIN: Warm, dry. laboratory and microbiology Laboratory Tests 09/27/24 03:40 Test 09/27/24 03:40 Range/Units Serum Glucose 177 H 74-106 mg/dL Problem List Acute on chronic hypoxic respiratory failure secondary to probable CHF exacerbation. Acute on chronic Moderately reduced congestive heart failure exacerbation-NYHA class 4. Pneumonia. AFib, rate controlled on Eliquis. COPD on 3 L home oxygen. Mild coronary artery disease. Sick sinus syndrome status post dual-chamber Biotronik pacemaker 2015. Obstructive apnea on CPAP. Acute cystitis. Diabetes mellitus type 2-A1c 6.4. ? CASS on CKD. Left-sided hydrocele. Anemia likely iron-deficiency. Secondary hypercoagulable state. History of left breast cancer status post surgery and tamoxifen therapy 2007. History of laparoscopic left radical nephrectomy 2013. History of colostomy 2019. Stage I decubitus sacral ulcer. Tunnel hemorrhoids. Diverticulosis. Assessment/Plan Continued all current supportive medical care. IV antibiotics as ordered. Diuretics with Lasix. GI prophylactics. Vasopressors for hemodynamic support. Additional plan as per the hospital course. Critical care time of 45 minutes provided to include time spent evaluation of patient at bedside, when appropriate patient/family education for diagnosis, treatment plan, review of pertinent medical information and discussion of care with specialty providers and PCP. Mechanical ventilator parameters, treatment and adjustments have personally been reviewed by me and treatment plan by global mobility specialist has also been reviewed. Dietary Evaluation Review Comments: 1) Matthieu 1 pk daily (ordered per ONS protocol) 2) CCHO 75gm + cardiac 3) Refer Tow Motor Driver on DC 4) Continue current plan of care Expected Outcomes/Goals: To meet >75% estimated needs Fu 3-5 days Plan discussed with: Other EVERTON SHELDON MD September 28, 2024 13:18
[2024-09-29] VITALS (91 sets, daily range): BP systolic 97–146; BP diastolic 38–82; PULSE 70–91; RESP 12–32; TEMP 97.6–99; O2SAT 94–100
[2024-09-29 09:55] LABS: Base Excess 1.8 mmol/L (-2.0-3.0)
[2024-09-29 10:00] LABS: Basophils # (auto) 0 10 ^3/uL (0-0.2); Eosinophils # (auto) 0 10 ^3/uL (0-0.8); Hemoglobin 11.3 g/dL (13.5-17.5); Lymphocytes # (auto) 0.2 10 ^3/uL (0.4-5.4); Mean Corpuscular Hemoglobin 24.3 pg (28.0-32.0); Mean Corpuscular Hgb Conc. 30.8 g/dL (32.0-36.0); Monocytes # (auto) 0.3 10 ^3/uL (0-1.3); Neutrophils # (auto) 11.9 10 ^3/uL (1.6-8.6)
[2024-09-29 10:04] LABS: Basophils % (auto) 0.1 % (0.0-2.0); Hematocrit 36.7 % (41.0-53.0); Lymphocytes % (auto) 1.4 % (10.0-50.0); Monocytes % (auto) 2.3 % (0.0-12.0); Neutrophils % (auto) 96.2 % (37.0-80.0); Nucleated Red Blood Cells % 0.1 %; Platelet Count (auto) 165 10^3/uL (140-450); Red Blood Cells 4.65 10^6/uL (4.5-5.90); Red Cell Distribution Width 22.3 % (11.8-14.3); White Blood Cell 12.3 10^3/uL (4.4-10.8)
[2024-09-29 10:11] LABS: Chloride 101 mmol/L (98-107)
[2024-09-29 10:12] LABS: Anion Gap 18 (5-15); Calcium 10.7 mg/dL (8.7-10.4); Carbon Dioxide 29 mmol/L (20-31); Potassium 2.9 mmol/L (3.5-5.1); Sodium 148 mmol/L (136-145)
[2024-09-29 10:17] LABS: BUN/Creatinine Ratio 27.4 (10.0-20.0)
[2024-09-29 10:18] LABS: Glucose 309 mg/dL (74-106)
[2024-09-29 10:19] LABS: Blood Urea Nitrogen 87 mg/dL (9-23)
[2024-09-29] MEDS: POTASSIUM CHL 20MEQ/50ML 50 ML IV SCH (11:06)
--- NOTE | 2024-09-29 12:13 | DVH ---
EXAM: XY CHEST XRAY 1 VIEW Indication: Intubated Technique: Single frontal view of the chest was obtained Comparison: XY CHEST XRAY 1 VIEW on DOS: 09/27/24, XY CHEST XRAY 1 VIEW on DOS: 09/26/24, XY CHEST XRAY 1 VIEW on DOS: 09/25/24, XY CHEST PORTABLE on DOS: 09/24/24, XY CHEST XRAY 1 VIEW on DOS: 09/24/24, XY YODIT ST XRAY 1 VIEW on DOS: 09/27/24 FINDINGS: Lines and Tubes: Unchanged. Lungs: No evidence of focal consolidation. Bibasilar atelectasis. Pleura: No effusion. No pneumothorax. Cardiomediastinal contours: Cardiomegaly. Bones: Unremarkable IMPRESSION: 1. Stable lines and tubes. Evaluation is limited due to overlying external wires. No significant jose alejandro nge compared to prior exam allowing for differences in technique.
--- NOTE | 2024-09-29 18:37 | DVHPN2 ---
Progress Note Date Seen: September 29, 2024 Medical Necessity Reason Pt with a Central, PICC or Fol: Yes The following are medically ne: Central Line, Xavier Catheter Subjective Patient reports: Other (intubated) Review of Systems: Deferred Objective vital signs Vital Sign Date Time Temp Pulse Resp B/P (MAP) Pulse Ox O2 Delivery O2 Flow Rate FiO2 09/29/24 18:30 98.8 78 13 127/51 (76) 98 98.8 09/29/24 17:41 30 09/29/24 17:41 Mechanical Ventilator+ 09/29/24 09:49 0.0 Total Intake and Output 09/28/24 09/28/24 09/29/24 15:00 23:00 07:00 Intake Total 150 ml 50 ml 241 ml Output Total 900 ml 475 ml Balance 150 ml -850 ml -234 ml medications Current Medications Medications Dose Ordered Sig/Paramjit Route Start Time Stop Time Status Last Admin Dose Admin Levalbuterol HCl 1.25 mg Q6HR NEB 09/12/24 06:00 09/29/24 11:09 1.25 MG Ipratropium [place] 0.5 mg Q6HR NEB 09/12/24 06:00 09/29/24 11:09 0.5 MG Pantoprazole Sodium 40 mg DAILY IV 09/13/24 10:00 09/28/24 10:01 40 MG Midazolam HCl 50 ml @ 1 mls/hr Q24H IV 09/17/24 05:30 09/19/24 02:00 1 MLS/HR Vancomycin HCl 0 ml @ 0 mls/hr UD IV 09/17/24 10:00 Enteral Nutritional Formula 1,000 ml 30ML/HR GT 09/17/24 11:00 09/28/24 03:53 1,000 ML Dextrose 50 ml UD PRN IV 09/17/24 11:00 Cancel Fentanyl Citrate 250 ml @ 2.5 mls/hr Q24H IV 09/17/24 11:30 09/24/24 13:34 2.5 MLS/HR Acetaminophen 650 mg Q4HP PRN PO 09/19/24 10:00 09/21/24 07:51 650 MG Cefepime HCl 50 ml @ 12.5 mls/hr DAILY@0900 IV 09/23/24 09:00 09/29/24 07:46 12.5 MLS/HR Heparin Sodium (Porcine) 5,000 units Q12HR SC 09/23/24 10:00 09/29/24 09:04 5,000 UNITS Micafungin Sodium 100 mg/Sodium Chloride 100 ml @ 100 mls/hr DAILY IV 09/24/24 10:00 09/29/24 09:03 100 MLS/HR Vasopressin 20 units/Sodium Chloride 100 ml @ 9 mls/hr Q11H7M IV 09/23/24 19:45 Nystatin 1 applic BID TOP 09/24/24 22:00 09/29/24 07:47 1 APPLIC Insulin Glargine 15 units DAILY@1000 SC 09/25/24 10:00 09/29/24 07:51 15 UNITS Diagnostic Test (Pha) 1 strip IQ4HR 09/25/24 12:00 09/29/24 16:54 1 STRIP Insulin Human Regular IQ4HR SC 09/25/24 12:00 09/29/24 16:56 9 UNITS Dextrose 50 ml UD PRN IV 09/25/24 09:30 Furosemide 40 mg BIDD IV 09/25/24 18:00 09/29/24 17:00 40 MG Mupirocin 1 applic BID EACHNOSTRI 09/25/24 10:00 09/30/24 09:59 09/29/24 09:03 1 APPLIC Norepinephrine Bitartrate 32 mg/ Sodium Chloride 250 ml @ 0.234 mls/ hr Q24H IV 09/25/24 12:30 09/26/24 06:47 1.406 MLS/HR Potassium Chloride 100 ml @ 50 mls/hr Q2H IV 09/26/24 06:15 09/26/24 10:14 UNV Methylprednisolone Sodium Succinate 40 mg BID IV 09/29/24 22:00 Examination: GENERAL:Abnormal, LUNGS:Abnormal, MSK:Abnormal, NEURO:Abnormal laboratory and microbiology Laboratory Tests 09/29/24 09:35 Test 09/29/24 09:35 Range/Units Serum Glucose 309 H 74-106 mg/dL Microbiology Date/Time Source Procedure Growth Status 09/22/24 15:00 Blood Blood Culture - Final NO GROWTH AFTER 5 DAYS OF INCUBATION. 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 Diastolic heart failure with severe right-sided heart failure Acute respiratory failure Status post right BKA recs lasix iv bid bun high secondary to Lasix and steroids removed therese catheter HD on hold Plan discussed with: Other My Orders My Orders Orders - KILEY MARTINEZ MD Procedure Category Date Status Time Furosemide Injection PHA 09/30/24 Verified (Lasix Injection) 06:00 Dietary Evaluation Review Comments: 1) Matthieu 1 pk daily (ordered per ONS protocol) 2) CCHO 75gm + cardiac 3) Refer Reconnaissance Crewmember on DC 4) Continue current plan of care Expected Outcomes/Goals: To meet >75% estimated needs Fu 3-5 days KILEY MARTINEZ MD September 29, 2024 18:36
--- NOTE | 2024-09-29 19:33 | DVHPNRES ---
Progress Note Date Seen: September 29, 2024 Resident Creating Document: DIOGO CORTEZ RESIDENT Medical Necessity Reason Pt with a Central, PICC or Fol: Yes The following are medically ne: Central Line, Xavier Catheter Subjective Review of Systems Patient was a 79-year-old male with a past medical history as described below presented to the hospital with a chief complaint of shortness of breath and edema for 2 weeks. Patient reported that he was apparently doing well until 2 weeks ago on 3.5 L home oxygen when he started to have worsening shortness of breath, orthopnea associated with cough with yellowish phlegm and also complained of edema, associated body aches, fatigue. Patient was initially treated on the floor and then was shifted to the ICU because of worsening respiratory status and initiated on BiPAP and was eventually intubated and put on mechanical ventilation. In the ICU patient was seen to have edema in the upper and lower extremities with low urine output. Patient was flipped CASS on CKD and underwent 2 dialysis sessions which helped improve his kidney function and he was put on Bumex drip and metolazone which diurese the patient really well. Past medical history: COPD on 3.5 L oxygen per minute, heart failure with reduced ejection fraction, coronary artery disease, atrial fibrillation on Eliquis, sick sinus syndrome tongue, insulin dependent type 2 diabetes mellitus, obstructive sleep apnea on CPAP, peripheral artery disease Past surgical history: Left radical nephrectomy, dual-chamber pacemaker, right above-knee amputation Social history: Patient is nonambulatory, quit smoking in year 1999 and denies any alcohol or other drug use Home medications: Eliquis 2.5 mg b.i.d., carvedilol 3.125 mg b.i.d., cilostazol 50 mg b.i.d., Lasix 20 mg daily Patient seen and examined at the bedside Patient can follow commands and RASS +2 patient was on CPAP for about 3 hours but the patient did not meet the parameters and had to be put back on AC Resume tube feeding to night and again CPAP trial tomorrow Good urinary output with a negative balance 934 mL no fever overnight and T-max is 98.9 Objective vital signs Vital Sign Date Time Temp Pulse Resp B/P (MAP) Pulse Ox O2 Delivery O2 Flow Rate FiO2 09/29/24 18:30 98.8 78 13 127/51 (76) 98 98.8 09/29/24 18:10 Mechanical Ventilator 09/29/24 18:10 30 09/29/24 09:49 0.0 Total Intake and Output 09/28/24 09/28/24 09/29/24 15:00 23:00 07:00 Intake Total 150 ml 50 ml 241 ml Output Total 900 ml 475 ml Balance 150 ml -850 ml -234 ml medications Current Medications Medications Dose Ordered Sig/Paramjit Route Start Time Stop Time Status Last Admin Dose Admin Levalbuterol HCl 1.25 mg Q6HR NEB 09/12/24 06:00 09/29/24 18:38 1.25 MG Ipratropium Erick 0.5 mg Q6HR NEB 09/12/24 06:00 09/29/24 18:38 0.5 MG Pantoprazole Sodium 40 mg DAILY IV 09/13/24 10:00 09/28/24 10:01 40 MG Midazolam HCl 50 ml @ 1 mls/hr Q24H IV 09/17/24 05:30 09/19/24 02:00 1 MLS/HR Vancomycin HCl 0 ml @ 0 mls/hr UD IV 09/17/24 10:00 Enteral Nutritional Formula 1,000 ml 30ML/HR GT 09/17/24 11:00 09/28/24 03:53 1,000 ML Dextrose 50 ml UD PRN IV 09/17/24 11:00 Cancel Fentanyl Citrate 250 ml @ 2.5 mls/hr Q24H IV 09/17/24 11:30 09/24/24 13:34 2.5 MLS/HR Acetaminophen 650 mg Q4HP PRN PO 09/19/24 10:00 09/21/24 07:51 650 MG Cefepime HCl 50 ml @ 12.5 mls/hr DAILY@0900 IV 09/23/24 09:00 09/29/24 07:46 12.5 MLS/HR Heparin Sodium (Porcine) 5,000 units Q12HR SC 09/23/24 10:00 09/29/24 09:04 5,000 UNITS Micafungin Sodium 100 mg/Sodium Chloride 100 ml @ 100 mls/hr DAILY IV 09/24/24 10:00 09/29/24 09:03 100 MLS/HR Vasopressin 20 units/Sodium Chloride 100 ml @ 9 mls/hr Q11H7M IV 09/23/24 19:45 Nystatin 1 applic BID TOP 09/24/24 22:00 09/29/24 07:47 1 APPLIC Insulin Glargine 15 units DAILY@1000 SC 09/25/24 10:00 09/29/24 07:51 15 UNITS Diagnostic Test (Pha) 1 strip IQ4HR 09/25/24 12:00 09/29/24 16:54 1 STRIP Insulin Human Regular IQ4HR SC 09/25/24 12:00 09/29/24 16:56 9 UNITS Dextrose 50 ml UD PRN IV 09/25/24 09:30 Mupirocin 1 applic BID EACHNOSTRI 09/25/24 10:00 09/30/24 09:59 09/29/24 09:03 1 APPLIC Norepinephrine Bitartrate 32 mg/ Sodium Chloride 250 ml @ 0.234 mls/ hr Q24H IV 09/25/24 12:30 09/26/24 06:47 1.406 MLS/HR Potassium Chloride 100 ml @ 50 mls/hr Q2H IV 09/26/24 06:15 09/26/24 10:14 UNV Methylprednisolone Sodium Succinate 40 mg BID IV 09/29/24 22:00 Furosemide 20 mg BIDD IV 09/30/24 06:00 Examination Examination Constitutional: Patient is on mechanical ventilation and off sedation with a RASS +2 Gen - no pallor, no icterus, no cyanosis, no clubbing Skin - Patients skin is warm and dry. Skin of the left lower extremity below the knee is mottled with poor blood supply . HEENT - normocephalic, atraumatic, moist mucous membranes. Neck - full ROM, no LAD, JVD could not be assessed Pulmonary - B/L diminished breath sounds, no wheezing, no stridor. cardiovascular - variable S1,S2 heard, no added sounds no murmurs heard. GI - soft abdomen. no hepatospleenomegaly. Bowel sounds normoactive Extremities- right LE AKA with 2+ edema, left LE with mottled appearacne and pulse not palpable except femoral pulsation. Neurological - patient was on mechanical ventilation, gag reflex present, pupils equal and reactive, responding to voice commands laboratory and microbiology Laboratory Tests 09/29/24 09:35 Test 09/29/24 09:35 Range/Units Serum Glucose 309 H 74-106 mg/dL Microbiology Date/Time Source Procedure Growth Status 09/22/24 15:00 Blood Blood Culture - Final NO GROWTH AFTER 5 DAYS OF INCUBATION. Complete 09/22/24 11:00 Sputum Gram Stain - Final Complete 09/22/24 11:00 Respiratory Culture - Final Presumptive Jessica tropicalis Complete 09/22/24 10:50 Urine - Xavier Port Urine Culture - Final Complete 09/16/24 19:55 Nose MRSA Screen - Final Methicillin Resistant S.aureus Complete Labs and/or images reviewed: Labs reviewed by me, Image(s) reviewed by me Problem List/Assessment/Plan Problem List/Assessment/Plan Assessment and plan: Neurology Acute metabolic encephalopathy likely due to hypercapnia - on mechanical ventilation - RASS +2 Respiratory Acute on chronic hypercarbic respiratory failure COPD MRSA Pneumonia Severe pulmonary hypertension Obstructive sleep apnea - on mechanical ventilation - DuoNebs q.6 hours - sputum culture showing growth of MRSA - repeated culture showing growth of yeast - IV antibiotics vancomycin and cefepime and micafungin - IV methylprednisolone 40 mg b.i.d. 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 Acute complicated cystitis - on HD, removed 2.5L on 09/18, and 2.5L on 09/19, further HD held - Good urine output - nephrology on board Infectious disease Septic shock likely due to UTI versus pneumonia UTI growing E coli MRSA pneumonia - on IV cefepime and vancomycin and micafungin Metabolic Hypokalemia -Replenished Endocrine Type 2 diabetes mellitus with hemoglobin A1c 6.4 - Lantus 15 units at QAM and moderate sliding scale of insulin Gastroenterology S/p diversion colostomy Right IJV TLC catheter placed on 09/27/24 Xavier's catheter placed on 09/12 Diet: Via NG tube PUD prophylaxis: Protonix DVT prophylaxis: heparin Goals of care discussed with the patient's for over 21 minutes. Full Code Critical care time spent excluding procedures and cpap trial: 81 minutes Plan discussed with Dr. Baudilio Plan discussed with: Patient, Other (Plan discussed with RN Reza) Dietary Evaluation Review Comments: 1) Matthieu 1 pk daily (ordered per ONS protocol) 2) CCHO 75gm + cardiac 3) Refer External Grinder on DC 4) Continue current plan of care Expected Outcomes/Goals: To meet >75% estimated needs Fu 3-5 days Date of Service: September 29, 2024 Billing Provider: ENMA MORENO MD Common Visit Codes: 25982-UNFXBKRW CARE 30-74 MIN, 43297-[id number] CARE-EACH +30MIN DIOGO CORTEZ RESIDENT September 29, 2024 19:33 ENMA MORENO MD September 30, 2024 14:22
--- NOTE | 2024-09-29 21:35 | DVH ---
CHEST RADIOGRAPH Indication: NG TUBE PLACEMENT Technique: Single frontal view of the chest was obtained Comparison: XY CHEST XRAY 1 VIEW on DOS: 09/29/24, XY CHEST XRAY 1 VIEW on DOS: 09/27/24, XY CHEST XRAY 1 VIEW on DOS: 09/26/24 FINDINGS: Lines and Tubes: Endotracheal tube is 4.5 cm above the cristopher. Dual-chamber pacemaker noted over the chest with pulse generator over the left chest. Right internal jugular catheter in place in superior vena cava above the right atrium. Enteric tube in place below the left diaphragm in the stomach Lungs: No focal consolidation. Pleura: No effusion. No pneumothorax. Cardiomediastinal contours: Unremarkable Bones: No acute osseous abnormality. IMPRESSION: 1. Endotracheal tube 3-4 cm above the cristopher. 2. Right internal jugular catheter and enteric tubes in place. 3. Pacemaker in place unchanged
--- NOTE | 2024-09-29 22:14 | DVHPN2 ---
Progress Note - Dictate Date Seen: September 29, 2024 Medical Necessity Reason Pt with a Central, PICC or Fol: Yes The following are medically ne: Central Line, Xavier Catheter Subjective Patient was seen and evaluated in follow up in the ICU. Patient is intubated on ventilator. FiO2 30%. The patient was on CPAP for about 3 hours but the patient did not meet the parameters and had to be put back on AC. Patient resumed on tube feedings. Urine output is good. WBC 12.3, NA 148, K 2.9, BUN 87, Director Supply 3.18. vital signs Vital Sign Date Time Temp Pulse Resp B/P (MAP) Pulse Ox O2 Delivery O2 Flow Rate FiO2 09/29/24 21:30 83 18 115/52 (73) 96 09/29/24 20:00 99.0 99.0 09/29/24 20:00 Mechanical Ventilator+ 30 30 09/29/24 09:49 0.0 Total Intake and Output 09/28/24 09/28/24 09/29/24 15:00 23:00 07:00 Intake Total 150 ml 50 ml 241 ml Output Total 900 ml 475 ml Balance 150 ml -850 ml -234 ml medications Current Medications Medications Dose Ordered Sig/Paramjti Route Start Time Stop Time Status Last Admin Dose Admin Levalbuterol HCl 1.25 mg Q6HR NEB 09/12/24 06:00 09/29/24 18:38 1.25 MG Ipratropium Meredith 0.5 mg Q6HR NEB 09/12/24 06:00 09/29/24 18:38 0.5 MG Pantoprazole Sodium 40 mg DAILY IV 09/13/24 10:00 09/28/24 10:01 40 MG Midazolam HCl 50 ml @ 1 mls/hr Q24H IV 09/17/24 05:30 09/19/24 02:00 1 MLS/HR Vancomycin HCl 0 ml @ 0 mls/hr UD IV 09/17/24 10:00 Enteral Nutritional Formula 1,000 ml 30ML/HR GT 09/17/24 11:00 09/28/24 03:53 1,000 ML Dextrose 50 ml UD PRN IV 09/17/24 11:00 Cancel Fentanyl Citrate 250 ml @ 2.5 mls/hr Q24H IV 09/17/24 11:30 09/24/24 13:34 2.5 MLS/HR Acetaminophen 650 mg Q4HP PRN PO 09/19/24 10:00 09/21/24 07:51 650 MG Cefepime HCl 50 ml @ 12.5 mls/hr DAILY@0900 IV 09/23/24 09:00 09/29/24 07:46 12.5 MLS/HR Heparin Sodium (Porcine) 5,000 units Q12HR SC 09/23/24 10:00 09/29/24 09:04 5,000 UNITS Micafungin Sodium 100 mg/Sodium Chloride 100 ml @ 100 mls/hr DAILY IV 09/24/24 10:00 09/29/24 09:03 100 MLS/HR Vasopressin 20 units/Sodium Chloride 100 ml @ 9 mls/hr Q11H7M IV 09/23/24 19:45 Nystatin 1 applic BID TOP 09/24/24 22:00 09/29/24 07:47 1 APPLIC Insulin Glargine 15 units DAILY@1000 SC 09/25/24 10:00 09/29/24 07:51 15 UNITS Diagnostic Test (Pha) 1 strip IQ4HR 09/25/24 12:00 09/29/24 20:14 1 STRIP Insulin Human Regular IQ4HR SC 09/25/24 12:00 09/29/24 20:14 9 UNITS Dextrose 50 ml UD PRN IV 09/25/24 09:30 Mupirocin 1 applic BID EACHNOSTRI 09/25/24 10:00 09/30/24 09:59 09/29/24 09:03 1 APPLIC Norepinephrine Bitartrate 32 mg/ Sodium Chloride 250 ml @ 0.234 mls/ hr Q24H IV 09/25/24 12:30 09/26/24 06:47 1.406 MLS/HR Potassium Chloride 100 ml @ 50 mls/hr Q2H IV 09/26/24 06:15 09/26/24 10:14 UNV Methylprednisolone Sodium Succinate 40 mg BID IV 09/29/24 22:00 Furosemide 20 mg BIDD IV 09/30/24 06:00 objective GENERAL: Intubated on ventilator. EYES: PERRL, EOMI. Anicteric. HENT: Moist mucous membranes. LUNGS: breath sounds. CARDIOVASCULAR: Regular rate and rhythm. ABDOMEN: Soft, nontender and nondistended. Patient has a functioning colostomy bag noted to the right-sided abdomen. EXTREMITIES: Pitting edema in all extremities. Right AKA. SKIN: Warm, dry. laboratory and microbiology Laboratory Tests 09/29/24 09:35 Test 09/29/24 09:35 Range/Units Serum Glucose 309 H 74-106 mg/dL Problem List Acute on chronic hypoxic respiratory failure secondary to probable CHF exacerbation. Acute on chronic Moderately reduced congestive heart failure exacerbation-NYHA class 4. Pneumonia. AFib, rate controlled on Eliquis. COPD on 3 L home oxygen. Mild coronary artery disease. Sick sinus syndrome status post dual-chamber Biotronik pacemaker 2016. Obstructive apnea on CPAP. Acute cystitis. Diabetes mellitus type 2-A1c 6.4. ? CASS on CKD. Left-sided hydrocele. Anemia likely iron-deficiency. Secondary hypercoagulable state. History of left breast cancer status post surgery and tamoxifen therapy 2007. History of laparoscopic left radical nephrectomy 2013. History of colostomy 2019. Stage I decubitus sacral ulcer. Tunnel hemorrhoids. Diverticulosis. Assessment/Plan Continued all current supportive medical care. IV antibiotics as ordered. Diuretics with Lasix. GI prophylactics. Vasopressors for hemodynamic support. Additional plan as per the hospital course. Critical care time of 45 minutes provided to include time spent evaluation of patient at bedside, when appropriate patient/family education for diagnosis, treatment plan, review of pertinent medical information and discussion of care with specialty providers and PCP. Mechanical ventilator parameters, treatment and adjustments have personally been reviewed by me and treatment plan by director safety has also been reviewed. Dietary Evaluation Review Comments: 1) Matthieu 1 pk daily (ordered per ONS protocol) 2) CCHO 75gm + cardiac 3) Refer Accounts Receivable Assistant on DC 4) Continue current plan of care Expected Outcomes/Goals: To meet >75% estimated needs Fu 3-5 days Plan discussed with: Other EVERTON SHELDON MD September 29, 2024 22:14
[2024-09-29] MEDS: methylPREDNISolone SOD SUCC 40 MG/ML VL IV SCH (22:53)
[2024-09-30] VITALS (57 sets, daily range): BP systolic 102–145; BP diastolic 42–79; PULSE 68–89; RESP 9–32; TEMP 98.2–99.4; O2SAT 89–100
[2024-09-30 04:12] LABS: Basophils # (auto) 0 10 ^3/uL (0-0.2); Basophils % (auto) 0.1 % (0.0-2.0); Eosinophils # (auto) 0 10 ^3/uL (0-0.8); Hemoglobin 11.4 g/dL (13.5-17.5); Lymphocytes # (auto) 0.2 10 ^3/uL (0.4-5.4); Monocytes # (auto) 0.3 10 ^3/uL (0-1.3)
[2024-09-30 04:16] LABS: Eosinophils % (auto) 0.1 % (0.0-7.0); Lymphocytes % (auto) 1.4 % (10.0-50.0); Mean Corpuscular Hgb Conc. 31.6 g/dL (32.0-36.0); Mean Corpuscular Volume 79.2 fL (80.0-100.0); Monocytes % (auto) 2.7 % (0.0-12.0); Neutrophils # (auto) 12.3 10 ^3/uL (1.6-8.6); Neutrophils % (auto) 95.7 % (37.0-80.0); Platelet Count (auto) 163 10^3/uL (140-450); Red Blood Cells 4.55 10^6/uL (4.5-5.90); Red Cell Distribution Width 22.6 % (11.8-14.3); White Blood Cell 12.9 10^3/uL (4.4-10.8)
[2024-09-30 04:23] LABS: Anion Gap 14 (5-15); Carbon Dioxide 31 mmol/L (20-31); Chloride 104 mmol/L (98-107)
[2024-09-30 04:27] LABS: Calcium 10.8 mg/dL (8.7-10.4); Potassium 3.4 mmol/L (3.5-5.1); Sodium 149 mmol/L (136-145)
[2024-09-30 04:29] LABS: BUN/Creatinine Ratio 31.1 (10.0-20.0); Glucose 335 mg/dL (74-106)
[2024-09-30 04:31] LABS: Blood Urea Nitrogen 102 mg/dL (9-23)
--- NOTE | 2024-09-30 05:28 | DVH ---
EXAM: XY CHEST PORTABLE HISTORY: on mechanical ventilation COMPARISON: XY CHEST PORTABLE on DOS: 09/29/24, XY CHEST XRAY 1 VIEW on DOS: 09/29/24, XY CHEST XRAY 1 EW on DOS: 09/27/24, XY CHEST XRAY 1 VIEW on DOS: 09/26/24, XY CHEST XRAY 1 VIEW on DOS: 09/25/24 TECHNIQUE: Portable AP view of the chest was performed. FINDINGS: The film is rotated LPO. Endotracheal tube is re-identified with its tip 3.1 cm above the cristopher. OG tube, right IJ central line, and left chest pacemaker are re-identified. The right costophrenic angle is not included on this single view. There is left lung volume loss, stable. There is question of le ft lung base scarring or atelectasis versus artifactual appearance. No new infiltrates, pneumothorax, or pulmonary edema. The heart is not enlarged. The aortic arch is calcific. IMPRESSION: 1. Mechanical ventilation with tubes and lines as above. 2. Possible left lung base atelectasis or scarring. No new pulmonary infiltrates.
[2024-09-30] MEDS: FUROSEMIDE 20 MG/2 ML VIAL IV SCH (06:09)
[2024-09-30 07:33] LABS: Base Excess 6.1 mmol/L (-2.0-3.0)
[2024-09-30] MEDS: POTASSIUM CHL 20MEQ/50ML 50 ML IV ONE ×2 (07:52→16:51)
[2024-09-30] MEDS: MICAFUNGIN SODIUM 100 MG in D5W 5% 100 ML IV SCH (11:10)
[2024-09-30 12:27] LABS: Base Excess 6.3 mmol/L (-2.0-3.0)
--- NOTE | 2024-09-30 15:27 | DVHPN2 ---
Progress Note Date Seen: September 30, 2024 Resident Creating Document: HALI CABALLERO RESIDENT Has the PT tested + for MRSA If YES, has PT been informed?: No Medical Necessity Reason Pt with a Central, PICC or Fol: Yes The following are medically ne: Central Line, Xavier Catheter Subjective Review of Systems Patient seen and examined at bedside. Patient was off sedation but still intubated on CPAP trial. Upon my examination there were clear lung sounds bilaterally, presence of colostomy bag without leak, right [id number] amputation and scaly plaques in the left lower extremity but no presence of edema at this time. Today, creatinine increased from 3.18-3.28 and BUN is 102. Patient has history of left nephrectomy and last hemodialysis was performed on September 19, 2024. There is no need of hemodialysis at this time. We will continue the patient on diuretics furosemide 20 mg IV b.i.d. and we will start the patient on free water 250 cc q.4. Otherwise, waiting for poss extubation per primary team. ROS unable to obtain due to patient been currently intubated. Objective vital signs Vital Sign Date Time Temp Pulse Resp B/P (MAP) Pulse Ox O2 Delivery O2 Flow Rate FiO2 09/30/24 13:21 76 24 104/42 (62) 95 30 09/30/24 12:00 Mechanical Ventilator+ 09/30/24 12:00 99.0 99.0 09/29/24 09:49 0.0 Total Intake and Output 09/29/24 09/29/24 09/30/24 15:00 23:00 07:00 Intake Total 120 ml 616 ml Output Total 600 ml 800 ml Balance -480 ml -184 ml medications Current Medications Medications Dose Ordered Sig/Paramjit Route Start Time Stop Time Status Last Admin Dose Admin Levalbuterol HCl 1.25 mg Q6HR NEB 09/12/24 06:00 09/30/24 11:27 1.25 MG Ipratropium Glidden 0.5 mg Q6HR NEB 09/12/24 06:00 09/30/24 11:27 0.5 MG Pantoprazole Sodium 40 mg DAILY IV 09/13/24 10:00 09/30/24 10:54 40 MG Midazolam HCl 50 ml @ 1 mls/hr Q24H IV 09/17/24 05:30 09/19/24 02:00 1 MLS/HR Vancomycin HCl 0 ml @ 0 mls/hr UD IV 09/17/24 10:00 Enteral Nutritional Formula 1,000 ml 30ML/HR GT 09/17/24 11:00 09/28/24 03:53 1,000 ML Dextrose 50 ml UD PRN IV 09/17/24 11:00 Cancel Fentanyl Citrate 250 ml @ 2.5 mls/hr Q24H IV 09/17/24 11:30 09/24/24 13:34 2.5 MLS/HR Acetaminophen 650 mg Q4HP PRN PO 09/19/24 10:00 09/21/24 07:51 650 MG Cefepime HCl 50 ml @ 12.5 mls/hr DAILY@0900 IV 09/23/24 09:00 09/30/24 09:05 12.5 MLS/HR Heparin Sodium (Porcine) 5,000 units Q12HR SC 09/23/24 10:00 09/30/24 10:39 5,000 UNITS Vasopressin 20 units/Sodium Chloride 100 ml @ 9 mls/hr Q11H7M IV 09/23/24 19:45 Nystatin 1 applic BID TOP 09/24/24 22:00 09/30/24 10:32 1 APPLIC Insulin Glargine 15 units DAILY@1000 SC 09/25/24 10:00 09/30/24 10:38 15 UNITS Diagnostic Test (Pha) 1 strip IQ4HR 09/25/24 12:00 09/30/24 12:03 1 STRIP Insulin Human Regular IQ4HR SC 09/25/24 12:00 09/30/24 12:07 6 UNITS Dextrose 50 ml UD PRN IV 09/25/24 09:30 Norepinephrine Bitartrate 32 mg/ Sodium Chloride 250 ml @ 0.234 mls/ hr Q24H IV 09/25/24 12:30 09/26/24 06:47 1.406 MLS/HR Potassium Chloride 100 ml @ 50 mls/hr Q2H IV 09/26/24 06:15 09/26/24 10:14 UNV Methylprednisolone Sodium Succinate 40 mg BID IV 09/29/24 22:00 09/30/24 10:31 40 MG Furosemide 20 mg BIDD IV 09/30/24 06:00 09/30/24 06:09 20 MG Micafungin Sodium 100 mg/Dextrose 100 ml @ 100 mls/hr DAILY IV 09/30/24 10:58 09/30/24 11:10 100 MLS/HR Examination Physical Examination General: Patient off sedation currently on CPAP trial, able to spontaneously open his eyes. HEENT: Normocephalic, atraumatic, moist mucous membranes Respiratory/pulmonary: Clear lungs bilaterally, no associated crackles or wheezes. Cardiovascular: Normal heart sounds S1 and S2 with no associated murmurs Abdomen: Abdomen nondistended, there is a colostomy bag in the abdomen with no leaks. Abdomen is soft and nontender to palpation. 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 Neurological: Patient is currently on CPAP trial unable to assess cranial nerves. laboratory and microbiology Laboratory Tests 09/30/24 03:00 Test 09/30/24 03:00 Range/Units Serum Glucose 335 H 74-106 mg/dL Microbiology Date/Time Source Procedure Growth Status 09/22/24 15:00 Blood Blood Culture - Final NO GROWTH AFTER 5 DAYS OF INCUBATION. 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 -start free water at 250 cc q.4 -creatinine slight increase from 3.18-3.28 and BUN is 102 -potassium was 3.4 was replaced with 20 mEq of potassium IV -no need of hemodialysis at this point -strict in's and out -Monitor urine output and kidney function Goals of care discussed with the nurse and independent living specialist Critical time spent 40min Plan discussed with Dr. Jarquin Addendum Patient seen and examined, plan discussed with resident. Agree with above, we will follow closely Plan discussed with: Other Dietary Evaluation Review Comments: 1) Matthieu 1 pk daily (ordered per ONS protocol) 2) CCHO 75gm + cardiac 3) Refer Police Lieutenant on DC 4) Continue current plan of care Expected Outcomes/Goals: To meet >75% estimated needs Fu 3-5 days HALI CABALLERO September 30, 2024 15:27 KILEY JARQUIN MD September 30, 2024 17:10
--- NOTE | 2024-09-30 16:20 | DVHPNRES ---
Progress Note Date Seen: September 30, 2024 Resident Creating Document: DIOGO CORTEZ RESIDENT Has the PT tested + for MRSA If YES, has PT been informed?: No Medical Necessity Reason Pt with a Central, PICC or Fol: Yes The following are medically ne: Central Line, Xavier Catheter Subjective Review of Systems Patient seen and examined at the bedside Patient passed CPAP trial today and extubated on 09/30/2024 Now on 3 L oxygen with saturation 93% Good urinary output with a negative balance 664ml no fever overnight and T-max is 99.0 Objective vital signs Vital Sign Date Time Temp Pulse Resp B/P (MAP) Pulse Ox O2 Delivery O2 Flow Rate FiO2 09/30/24 15:30 79 23 136/59 (84) 92 09/30/24 15:16 Cool Aerosol 6 35 35 09/30/24 12:00 99.0 99.0 Total Intake and Output 09/29/24 09/29/24 09/30/24 15:00 23:00 07:00 Intake Total 120 ml 616 ml Output Total 600 ml 800 ml Balance -480 ml -184 ml medications Current Medications Medications Dose Ordered Sig/Paramjit Route Start Time Stop Time Status Last Admin Dose Admin Levalbuterol HCl 1.25 mg Q6HR NEB 09/12/24 06:00 09/30/24 11:27 1.25 MG Ipratropium [place] 0.5 mg Q6HR NEB 09/12/24 06:00 09/30/24 11:27 0.5 MG Pantoprazole Sodium 40 mg DAILY IV 09/13/24 10:00 09/30/24 10:54 40 MG Midazolam HCl 50 ml @ 1 mls/hr Q24H IV 09/17/24 05:30 09/19/24 02:00 1 MLS/HR Vancomycin HCl 0 ml @ 0 mls/hr UD IV 09/17/24 10:00 Enteral Nutritional Formula 1,000 ml 30ML/HR GT 09/17/24 11:00 09/28/24 03:53 1,000 ML Dextrose 50 ml UD PRN IV 09/17/24 11:00 Cancel Fentanyl Citrate 250 ml @ 2.5 mls/hr Q24H IV 09/17/24 11:30 09/24/24 13:34 2.5 MLS/HR Acetaminophen 650 mg Q4HP PRN PO 09/19/24 10:00 09/21/24 07:51 650 MG Cefepime HCl 50 ml @ 12.5 mls/hr DAILY@0900 IV 09/23/24 09:00 09/30/24 09:05 12.5 MLS/HR Heparin Sodium (Porcine) 5,000 units Q12HR SC 09/23/24 10:00 09/30/24 10:39 5,000 UNITS Vasopressin 20 units/Sodium Chloride 100 ml @ 9 mls/hr Q11H7M IV 09/23/24 19:45 Nystatin 1 applic BID TOP 09/24/24 22:00 09/30/24 10:32 1 APPLIC Insulin Glargine 15 units DAILY@1000 SC 09/25/24 10:00 09/30/24 10:38 15 UNITS Diagnostic Test (Pha) 1 strip IQ4HR 09/25/24 12:00 09/30/24 12:03 1 STRIP Insulin Human Regular IQ4HR SC 09/25/24 12:00 09/30/24 12:07 6 UNITS Dextrose 50 ml UD PRN IV 09/25/24 09:30 Norepinephrine Bitartrate 32 mg/ Sodium Chloride 250 ml @ 0.234 mls/ hr Q24H IV 09/25/24 12:30 09/26/24 06:47 1.406 MLS/HR Potassium Chloride 100 ml @ 50 mls/hr Q2H IV 09/26/24 06:15 09/26/24 10:14 UNV Methylprednisolone Sodium Succinate 40 mg BID IV 09/29/24 22:00 09/30/24 10:31 40 MG Furosemide 20 mg BIDD IV 09/30/24 06:00 09/30/24 06:09 20 MG Micafungin Sodium 100 mg/Dextrose 100 ml @ 100 mls/hr DAILY IV 09/30/24 10:58 09/30/24 11:10 100 MLS/HR Purified Water 250 ml Q4HR GT 09/30/24 18:00 Examination Examination Constitutional: Extubated today, Patient is currently alert and oriented x3 and on 3 L oxygen through nasal cannula Gen - no pallor, no icterus, no cyanosis, no clubbing Skin - Patients skin is warm and dry. Skin of the left lower extremity below the knee is mottled with poor blood supply . HEENT - normocephalic, atraumatic, moist mucous membranes. Neck - full ROM, no LAD, JVD could not be assessed Pulmonary - B/L diminished breath sounds, no wheezing, no stridor. cardiovascular - variable S1,S2 heard, no added sounds no murmurs heard. GI - soft abdomen. no hepatospleenomegaly. Bowel sounds normoactive Extremities- right LE AKA with 2+ edema, left LE with mottled appearacne and pulse not palpable except femoral pulsation. Neurological - Alert, oriented x3, sensory intact, upper extremity 5/5, right below-knee amputation. Left lower exrtremity 07/02 laboratory and microbiology Laboratory Tests 09/30/24 03:00 Test 09/30/24 03:00 Range/Units Serum Glucose 335 H 74-106 mg/dL Microbiology Date/Time Source Procedure Growth Status 09/22/24 15:00 Blood Blood Culture - Final NO GROWTH AFTER 5 DAYS OF INCUBATION. Complete 09/22/24 11:00 Sputum Gram Stain - Final Complete 09/22/24 11:00 Respiratory Culture - Final Presumptive Jessica tropicalis Complete 09/22/24 10:50 Urine - [place] Urine Culture - Final Complete 09/16/24 19:55 Nose MRSA Screen - Final Methicillin Resistant S.aureus Complete Labs and/or images reviewed: Labs reviewed by me, Image(s) reviewed by me Problem List/Assessment/Plan Problem List/Assessment/Plan Assessment and plan: Neurology Acute metabolic encephalopathy likely due to hypercapnia - Extubated on 09/30/24 Respiratory Acute on chronic hypercarbic respiratory failure COPD MRSA Pneumonia Severe pulmonary hypertension Obstructive sleep apnea - DuoNebs q.6 hours - sputum culture showing growth of MRSA - repeated culture showing growth of yeast - IV antibiotics vancomycin and cefepime and micafungin - IV methylprednisolone 40 mg b.i.d. 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 Acute complicated cystitis - on HD, removed 2.5L on 09/18, and 2.5L on 09/19, further HD held - Good urine output - nephrology on board Infectious disease Septic shock likely due to UTI versus pneumonia UTI growing E coli MRSA pneumonia - on IV cefepime and vancomycin and micafungin Metabolic Hypokalemia and hypernatremia -Replenished - Purified water 250 mL q.4 hours through GT-tube Endocrine Type 2 diabetes mellitus with hemoglobin A1c 6.4 - Lantus 15 units at QAM and moderate sliding scale of insulin Gastroenterology S/p diversion colostomy Midline Xavier's catheter placed on 09/12 Diet: Via NG tube PUD prophylaxis: Protonix DVT prophylaxis: heparin Goals of care discussed with the patient's for over 21 minutes. Full Code Critical care time spent excluding procedures including cpap trial : 82 minutes Plan discussed with Dr. Moreno Plan discussed with: Other (RN) My Orders My Orders Orders - DIOGO CORTEZ Procedure Category Date Status Time Chest Portable XY 09/30/24 Resulted 04:00 Abg W/ Co-Ox RT 09/30/24 Logged 04:00 Abg W/ Co-Ox RT 09/30/24 Logged 10:53 Potassium Chl PHA 09/30/24 In Process 20meq/50ml (Potassium 16:15 Insert Midline ORDERS 09/30/24 Transmitted 15:54 Dietary Evaluation Review Comments: 1) Matthieu 1 pk daily (ordered per ONS protocol) 2) CCHO 75gm + cardiac 3) Refer Pan Washer on DC 4) Continue current plan of care Expected Outcomes/Goals: To meet >75% estimated needs Fu 3-5 days Date of Service: September 30, 2024 Billing Provider: ENMA MORENO MD Common Visit Codes: 39600-[id number] CARE 30-74 MIN, [id number] CARE-EACH +30MIN DIOGO CORTEZ September 30, 2024 16:20 ENMA MORENO MD October 01, 2024 15:23
[2024-09-30] MEDS: VANCOMYCIN 500mg/100mL 100 ML IV ONE (16:47)
[2024-09-30] MEDS: FREE WATER GT SCH (18:00)
--- NOTE | 2024-09-30 23:10 | DVHPN2 ---
Progress Note - Dictate Date Seen: September 30, 2024 Has the PT tested + for MRSA If YES, has PT been informed?: No Medical Necessity Reason Pt with a Central, PICC or Fol: Yes The following are medically ne: Central Line, Xavier Catheter Subjective Patient was seen and evaluated in follow up in the ICU. Patient passed CPAP trial today and was extubated. Patient is now on 3 L oxygen. Patient has stable urine output. WBC 12.9. vital signs Vital Sign Date Time Temp Pulse Resp B/P (MAP) Pulse Ox O2 Delivery O2 Flow Rate FiO2 09/30/24 18:20 80 14 96 09/30/24 18:11 112/51 09/30/24 18:00 Nasal Cannula* 3 32 09/30/24 16:00 98.5 98.5 Total Intake and Output 09/29/24 09/29/24 09/30/24 15:00 23:00 07:00 Intake Total 120 ml 616 ml Output Total 600 ml 800 ml Balance -480 ml -184 ml medications Current Medications Medications Dose Ordered Sig/Paramjit Route Start Time Stop Time Status Last Admin Dose Admin Levalbuterol HCl 1.25 mg Q6HR NEB 09/12/24 06:00 09/30/24 18:14 1.25 MG Ipratropium [place] 0.5 mg Q6HR NEB 09/12/24 06:00 09/30/24 18:14 0.5 MG Pantoprazole Sodium 40 mg DAILY IV 09/13/24 10:00 09/30/24 10:54 40 MG Midazolam HCl 50 ml @ 1 mls/hr Q24H IV 09/17/24 05:30 09/19/24 02:00 1 MLS/HR Vancomycin HCl 0 ml @ 0 mls/hr UD IV 09/17/24 10:00 Enteral Nutritional Formula 1,000 ml 30ML/HR GT 09/17/24 11:00 09/28/24 03:53 1,000 ML Dextrose 50 ml UD PRN IV 09/17/24 11:00 Cancel Fentanyl Citrate 250 ml @ 2.5 mls/hr Q24H IV 09/17/24 11:30 09/24/24 13:34 2.5 MLS/HR Acetaminophen 650 mg Q4HP PRN PO 09/19/24 10:00 09/21/24 07:51 650 MG Cefepime HCl 50 ml @ 12.5 mls/hr DAILY@0900 IV 09/23/24 09:00 09/30/24 09:05 12.5 MLS/HR Heparin Sodium (Porcine) 5,000 units Q12HR SC 09/23/24 10:00 09/30/24 22:40 5,000 UNITS Vasopressin 20 units/Sodium Chloride 100 ml @ 9 mls/hr Q11H7M IV 09/23/24 19:45 Nystatin 1 applic BID TOP 09/24/24 22:00 09/30/24 22:44 1 APPLIC Insulin Glargine 15 units DAILY@1000 SC 09/25/24 10:00 09/30/24 10:38 15 UNITS Diagnostic Test (Pha) 1 strip IQ4HR 09/25/24 12:00 09/30/24 19:42 1 STRIP Insulin Human Regular IQ4HR SC 09/25/24 12:00 09/30/24 19:45 9 UNITS Dextrose 50 ml UD PRN IV 09/25/24 09:30 Norepinephrine Bitartrate 32 mg/ Sodium Chloride 250 ml @ 0.234 mls/ hr Q24H IV 09/25/24 12:30 09/26/24 06:47 1.406 MLS/HR Potassium Chloride 100 ml @ 50 mls/hr Q2H IV 09/26/24 06:15 09/26/24 10:14 UNV Methylprednisolone Sodium Succinate 40 mg BID IV 09/29/24 22:00 09/30/24 22:39 40 MG Furosemide 20 mg BIDD IV 09/30/24 06:00 09/30/24 18:11 20 MG Micafungin Sodium 100 mg/Dextrose 100 ml @ 100 mls/hr DAILY IV 09/30/24 10:58 09/30/24 11:10 100 MLS/HR Purified Water 250 ml Q4HR GT 09/30/24 18:00 objective GENERAL: Alert and oriented x 3. No acute distress. EYES: PERRL, EOMI. Anicteric. HENT: Moist mucous membranes. LUNGS: breath sounds. CARDIOVASCULAR: Regular rate and rhythm. ABDOMEN: Soft, nontender and nondistended. Colostomy bag to the right-sided abdomen. EXTREMITIES: Right AKA. SKIN: Warm, dry. laboratory and microbiology Laboratory Tests 09/30/24 03:00 Test 09/30/24 03:00 Range/Units Serum Glucose 335 H 74-106 mg/dL Problem List Acute on chronic hypoxic respiratory failure secondary to probable CHF exacerbation. Acute on chronic Moderately reduced congestive heart failure exacerbation-NYHA class 4. Pneumonia. AFib, rate controlled on Eliquis. COPD on 3 L home oxygen. Mild coronary artery disease. Sick sinus syndrome status post dual-chamber Biotronik pacemaker 2016. Obstructive apnea on CPAP. Acute cystitis. Diabetes mellitus type 2-A1c 6.4. ? CASS on CKD. Left-sided hydrocele. Anemia likely iron-deficiency. Secondary hypercoagulable state. History of left breast cancer status post surgery and tamoxifen therapy 2007. History of laparoscopic left radical nephrectomy 2013. History of colostomy 2019. Stage I decubitus sacral ulcer. Tunnel hemorrhoids. Diverticulosis. Assessment/Plan Continued all current supportive medical care. IV antibiotics as ordered. Diuretics with Lasix. GI prophylactics. Vasopressors for hemodynamic support. Additional plan as per the hospital course. Critical care time of 45 minutes provided to include time spent evaluation of patient at bedside, when appropriate patient/family education for diagnosis, treatment plan, review of pertinent medical information and discussion of care with specialty providers and PCP. Mechanical ventilator parameters, treatment and adjustments have personally been reviewed by me and treatment plan by inspector boiler has also been reviewed. Dietary Evaluation Review Comments: 1) Matthieu 1 pk daily (ordered per ONS protocol) 2) CCHO 75gm + cardiac 3) Refer Preschool Assistant Director on DC 4) Continue current plan of care Expected Outcomes/Goals: To meet >75% estimated needs Fu 3-5 days Plan discussed with: Patient EVERTON SHELDON MD September 30, 2024 23:10
[2024-10-01] VITALS (80 sets, daily range): BP systolic 97–154; BP diastolic 50–101; PULSE 63–84; RESP 9–32; TEMP 97.7–98.4; O2SAT 90–100
--- NOTE | 2024-10-01 00:59 | DVH ---
CHEST RADIOGRAPH Indication: Hypoxia Technique: Single frontal view of the chest was obtained COMPARISON: XY CHEST PORTABLE on DOS: 09/30/24, XY CHEST PORTABLE on DOS: 09/29/24, XY CHEST XRAY 1 VIEW on DOS: 09/29/24, XY CHEST XRAY 1 VIEW on DOS: 09/27/24, XY CHEST XRAY 1 VIEW on DOS: 09/26/24 FINDINGS: Lines and Tubes: There has been interval extubation and removal of the enteric catheter. The right i nternal jugular central venous catheter is unchanged. Lungs: Left basilar atelectasis unchanged. Mild diffuse increased prominence of the pulmonary vascula ture without evidence of focal consolidation. Pleura: No effusion. No pneumothorax. Cardiomediastinal contours: Unremarkable Bones: Unremarkable IMPRESSION: 1. Left basilar atelectasis and mild diffuse increased prominence of the pulmonary vasculature. 2. Status post interval extubation and removal of enteric catheter. Right IJ central venous line unch anged.
[2024-10-01 03:36] LABS: Basophils # (auto) 0 10 ^3/uL (0-0.2); Basophils % (auto) 0.1 % (0.0-2.0); Eosinophils # (auto) 0 10 ^3/uL (0-0.8); Hemoglobin 12.7 g/dL (13.5-17.5); Monocytes # (auto) 0.5 10 ^3/uL (0-1.3); Monocytes % (auto) 3.9 % (0.0-12.0); Nucleated Red Blood Cells % 0.1 %
[2024-10-01 03:39] LABS: Hematocrit 41.5 % (41.0-53.0); Lymphocytes # (auto) 0.5 10 ^3/uL (0.4-5.4); Lymphocytes % (auto) 3.7 % (10.0-50.0); Mean Corpuscular Hemoglobin 24.8 pg (28.0-32.0); Mean Corpuscular Hgb Conc. 30.5 g/dL (32.0-36.0); Mean Corpuscular Volume 81.2 fL (80.0-100.0); Neutrophils # (auto) 11.6 10 ^3/uL (1.6-8.6); Neutrophils % (auto) 92.3 % (37.0-80.0); Platelet Count (auto) 157 10^3/uL (140-450); Red Blood Cells 5.11 10^6/uL (4.5-5.90); Red Cell Distribution Width 22.5 % (11.8-14.3); White Blood Cell 12.6 10^3/uL (4.4-10.8)
[2024-10-01 03:46] LABS: Anion Gap 11 (5-15); Potassium 4.2 mmol/L (3.5-5.1)
[2024-10-01 03:47] LABS: Carbon Dioxide 32 mmol/L (20-31); Chloride 108 mmol/L (98-107); Sodium 151 mmol/L (136-145)
[2024-10-01 03:48] LABS: Calcium 10.3 mg/dL (8.7-10.4)
[2024-10-01 03:52] LABS: BUN/Creatinine Ratio 30.7 (10.0-20.0)
[2024-10-01 04:22] LABS: Glucose 253 mg/dL (74-106)
[2024-10-01 04:23] LABS: Blood Urea Nitrogen 102 mg/dL (9-23)
--- NOTE | 2024-10-01 05:20 | DVH ---
CHEST RADIOGRAPH Indication: Intubated Technique: Single frontal view of the chest was obtained Comparison: XY CHEST PORTABLE on DOS: 09/30/24, XY CHEST PORTABLE on DOS: 09/30/24, XY CHEST PORTABLE on DOS: 09/29/24, XY CHEST XRAY 1 VIEW on DOS: 09/29/24, XY CHEST XRAY 1 VIEW on DOS: 09/27/24, XY CHEST JEEVAN BLE on DOS: 09/30/24 FINDINGS: Lines and Tubes: The right internal jugular central venous catheter is unchanged. Lungs: Left basilar atelectasis unchanged. Mild diffuse increased prominence of the pulmonary vascula ture without evidence of focal consolidation. Pleura: No effusion. No pneumothorax. Cardiomediastinal contours: Unremarkable Bones: Unremarkable IMPRESSION: 1. Left basilar atelectasis and mild diffuse increased prominence of the pulmonary vasculature. 2. Right IJ central venous line unchanged.
--- NOTE | 2024-10-01 10:06 | DVHPNRES ---
Progress Note Date Seen: October 01, 2024 Resident Creating Document: DIOGO CORTEZ RESIDENT Has the PT tested + for MRSA If YES, has PT been informed?: No Medical Necessity Reason Pt with a Central, PICC or Fol: Yes The following are medically ne: Central Line, Xavier Catheter Subjective Review of Systems Patient seen and examined at the bedside. Alert and oriented x2 Extubated on 09/30/2024 Now on 3 L oxygen with saturation 93% Good urinary output with a negative balance 1230 ml no fever overnight and T-max is 98.8 Passed swallow evaluation today and started pureed diet Objective vital signs Vital Sign Date Time Temp Pulse Resp B/P (MAP) Pulse Ox O2 Delivery O2 Flow Rate FiO2 10/01/24 08:30 73 23 124/64 (84) 97 10/01/24 08:00 98.3 98.3 10/01/24 08:00 Nasal Cannula* 3 32 Total Intake and Output 09/30/24 09/30/24 10/01/24 15:00 23:00 07:00 Intake Total 200 ml 0 ml 0 ml Output Total 750 ml 680 ml Balance 200 ml -750 ml -680 ml medications Current Medications Medications Dose Ordered Sig/Paramjit Route Start Time Stop Time Status Last Admin Dose Admin Levalbuterol HCl 1.25 mg Q6HR NEB 09/12/24 06:00 10/01/24 05:45 1.25 MG Ipratropium [place] 0.5 mg Q6HR NEB 09/12/24 06:00 10/01/24 05:45 0.5 MG Pantoprazole Sodium 40 mg DAILY IV 09/13/24 10:00 09/30/24 10:54 40 MG Midazolam HCl 50 ml @ 1 mls/hr Q24H IV 09/17/24 05:30 09/19/24 02:00 1 MLS/HR Vancomycin HCl 0 ml @ 0 mls/hr UD IV 09/17/24 10:00 Enteral Nutritional Formula 1,000 ml 30ML/HR GT 09/17/24 11:00 09/28/24 03:53 1,000 ML Dextrose 50 ml UD PRN IV 09/17/24 11:00 Cancel Fentanyl Citrate 250 ml @ 2.5 mls/hr Q24H IV 09/17/24 11:30 09/24/24 13:34 2.5 MLS/HR Acetaminophen 650 mg Q4HP PRN PO 09/19/24 10:00 09/21/24 07:51 650 MG Cefepime HCl 50 ml @ 12.5 mls/hr DAILY@0900 IV 09/23/24 09:00 10/01/24 09:00 12.5 MLS/HR Heparin Sodium (Porcine) 5,000 units Q12HR SC 09/23/24 10:00 09/30/24 22:40 5,000 UNITS Vasopressin 20 units/Sodium Chloride 100 ml @ 9 mls/hr Q11H7M IV 09/23/24 19:45 Nystatin 1 applic BID TOP 09/24/24 22:00 09/30/24 22:44 1 APPLIC Insulin Glargine 15 units DAILY@1000 SC 09/25/24 10:00 09/30/24 10:38 15 UNITS Diagnostic Test (Pha) 1 strip IQ4HR 09/25/24 12:00 10/01/24 07:38 1 STRIP Insulin Human Regular IQ4HR SC 09/25/24 12:00 10/01/24 07:53 6 UNITS Dextrose 50 ml UD PRN IV 09/25/24 09:30 Norepinephrine Bitartrate 32 mg/ Sodium Chloride 250 ml @ 0.234 mls/ hr Q24H IV 09/25/24 12:30 09/26/24 06:47 1.406 MLS/HR Potassium Chloride 100 ml @ 50 mls/hr Q2H IV 09/26/24 06:15 09/26/24 10:14 UNV Methylprednisolone Sodium Succinate 40 mg BID IV 09/29/24 22:00 09/30/24 22:39 40 MG Furosemide 20 mg BIDD IV 09/30/24 06:00 10/01/24 05:14 20 MG Micafungin Sodium 100 mg/Dextrose 100 ml @ 100 mls/hr DAILY IV 09/30/24 10:58 09/30/24 11:10 100 MLS/HR Purified Water 250 ml Q4HR GT 09/30/24 18:00 Examination Examination Constitutional: Patient is currently alert and oriented x2 and on 3 L oxygen through nasal cannula Gen - no pallor, no icterus, no cyanosis, no clubbing Skin - Patients skin is warm and dry. Skin of the left lower extremity below the knee is mottled with poor blood supply . HEENT - normocephalic, atraumatic, moist mucous membranes. Neck - full ROM, no LAD, JVD could not be assessed Pulmonary - B/L diminished breath sounds, no wheezing, no stridor. cardiovascular - variable S1,S2 heard, no added sounds no murmurs heard. GI - soft abdomen. no hepatospleenomegaly. Bowel sounds normoactive Extremities- right LE AKA with 2+ edema, left LE with mottled appearacne and pulse not palpable except femoral pulsation. Neurological - Alert, oriented x2, sensory intact, upper extremity /, right below-knee amputation. Left lower exrtremity 07/02 laboratory and microbiology Laboratory Tests 10/01/24 03:00 Test 10/01/24 03:00 Range/Units Serum Glucose 253 H 74-106 mg/dL Microbiology Date/Time Source Procedure Growth Status 09/22/24 15:00 Blood Blood Culture - Final NO GROWTH AFTER 5 DAYS OF INCUBATION. Complete 09/22/24 11:00 Sputum Gram Stain - Final Complete 09/22/24 11:00 Respiratory Culture - Final Presumptive Jessica tropicalis Complete 09/22/24 10:50 Urine - [place] Urine Culture - Final Complete 09/16/24 19:55 Nose MRSA Screen - Final Methicillin Resistant S.aureus Complete Labs and/or images reviewed: Labs reviewed by me, Image(s) reviewed by me Problem List/Assessment/Plan Problem List/Assessment/Plan Assessment and plan: Neurology Acute metabolic encephalopathy likely due to hypercapnia - Extubated on 09/30/24 Respiratory Acute on chronic hypercarbic respiratory failure COPD MRSA Pneumonia Severe pulmonary hypertension Obstructive sleep apnea - DuoNebs q.6 hours - sputum culture showing growth of MRSA - repeated culture showing growth of yeast - IV antibiotics vancomycin and cefepime and micafungin - IV methylprednisolone 20 mg b.i.d. Cardiovascular Shock likely due to sepsis resolved Acute on chronic heart failure with a reduced ejection fraction NYHA class 4 Paroxysmal atrial fibrillation , sick sinus syndrome with s/p dual-chamber pacemaker Coronary artery disease (coronary angiogram in 2020) Severe pulmonary hypertension with RV hypokinesis Peripheral artery disease with s/p right above-knee amputation - IV Lasix 20 mg bid - anticoagulation currently on prophylactic heparin Nephrology CASS 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 Acute complicated cystitis - on HD, removed 2.5L on 09/18, and 2.5L on 09/19, further HD held - Good urine output - nephrology on board Infectious disease Septic shock likely due to UTI versus pneumonia UTI growing E coli MRSA pneumonia - on IV cefepime and vancomycin and micafungin Metabolic Hypokalemia and hypernatremia -Replenished - Purified water 250 mL q.4 hours Endocrine Type 2 diabetes mellitus with hemoglobin A1c 6.4 - Lantus 25 units at QAM and moderate sliding scale of insulin Gastroenterology S/p diversion colostomy Midline Xavier's catheter placed on 09/12 Diet: Via NG tube PUD prophylaxis: Protonix DVT prophylaxis: heparin Goals of care discussed with the patient's for over 21 minutes. Full Code Critical care time spent excluding procedures: 43 minutes Plan discussed with Dr. Moreno Plan discussed with: Other (RN) My Orders My Orders Orders - DIOGO CORTEZ Procedure Category Date Status Time Abg W/ Co-Ox RT 09/30/24 Logged 10:53 Insert Midline ORDERS 09/30/24 Transmitted 15:54 Chest Portable XY 09/30/24 Resulted 20:39 * Swallow Request ST 10/01/24 Transmitted 08:58 Dietary Evaluation Review Comments: 1) Matthieu 1 pk daily (ordered per ONS protocol) 2) CCHO 75gm + cardiac 3) Refer Lead Portfolio Manager on DC 4) Continue current plan of care Expected Outcomes/Goals: To meet >75% estimated needs Fu 3-5 days Date of Service: October 01, 2024 Billing Provider: ENMA MORENO MD Common Visit Codes: [id number] CARE 30-74 MIN DIOGO CORTEZ October 01, 2024 10:06 ENMA MORENO MD October 02, 2024 11:17
--- NOTE | 2024-10-01 12:33 | DVHPN2 ---
Progress Note Date Seen: October 01, 2024 Resident Creating Document: HALI CABALLERO RESIDENT Has the PT tested + for MRSA If YES, has PT been informed?: No Medical Necessity Reason Pt with a Central, PICC or Fol: Yes The following are medically ne: Central Line, Xavier Catheter Subjective Review of Systems Patient seen and examined at bedside. Patient is currently extubated currently on 4 L of oxygen through nasal cannula 95%. ABG this morning showed a pH of 7.50, pCO2 of 38.5, PaO2 of 92.5 and HC03 of 29.8. In's and out in the last 24 hours. It is 200, out's 1430 with a negative balance of 1230 cc. Apparently during extubation they remove NG tube as well and we have not being able to give purified water as prescribed. We will start the patient on D5W at 75 cc/hour we will keep furosemide at 20 mg IV b.i.d.. Today, creatinine is 3.32 and BUN 102. We will continue monitoring kidney function at this time. ROS Constitutional: Denies weight loss, fever and chills. HEENT: Denies changes in vision and hearing. Respiratory: Denies shortness of breath and cough Cardiovascular: Denies chest discomfort or palpitations GI: Denies abdominal pain, nausea, vomiting and diarrhea. : Denies dysuria and urinary frequency. Musculoskeletal: Denies myalgias and joint pain Skin: Denies rash and pruritus. Neurological: Denies dizziness, headache, vision or hearing problems Objective vital signs Vital Sign Date Time Temp Pulse Resp B/P (MAP) Pulse Ox O2 Delivery O2 Flow Rate FiO2 10/01/24 11:29 74 18 94 10/01/24 11:05 Nasal Cannula* 2 28 10/01/24 11:00 138/68 (91) 10/01/24 08:00 98.3 98.3 Total Intake and Output 09/30/24 09/30/24 10/01/24 15:00 23:00 07:00 Intake Total 200 ml 0 ml 0 ml Output Total 750 ml 680 ml Balance 200 ml -750 ml -680 ml medications Current Medications Medications Dose Ordered Sig/Paramjit Route Start Time Stop Time Status Last Admin Dose Admin Levalbuterol HCl 1.25 mg Q6HR NEB 09/12/24 06:00 10/01/24 11:05 1.25 MG Ipratropium [place] 0.5 mg Q6HR NEB 09/12/24 06:00 10/01/24 11:04 0.5 MG Pantoprazole Sodium 40 mg DAILY IV 09/13/24 10:00 10/01/24 10:39 40 MG Midazolam HCl 50 ml @ 1 mls/hr Q24H IV 09/17/24 05:30 09/19/24 02:00 1 MLS/HR Vancomycin HCl 0 ml @ 0 mls/hr UD IV 09/17/24 10:00 Enteral Nutritional Formula 1,000 ml 30ML/HR GT 09/17/24 11:00 09/28/24 03:53 1,000 ML Dextrose 50 ml UD PRN IV 09/17/24 11:00 Cancel Fentanyl Citrate 250 ml @ 2.5 mls/hr Q24H IV 09/17/24 11:30 09/24/24 13:34 2.5 MLS/HR Acetaminophen 650 mg Q4HP PRN PO 09/19/24 10:00 09/21/24 07:51 650 MG Cefepime HCl 50 ml @ 12.5 mls/hr DAILY@0900 IV 09/23/24 09:00 10/01/24 09:00 12.5 MLS/HR Heparin Sodium (Porcine) 5,000 units Q12HR SC 09/23/24 10:00 10/01/24 10:40 5,000 UNITS Vasopressin 20 units/Sodium Chloride 100 ml @ 9 mls/hr Q11H7M IV 09/23/24 19:45 Nystatin 1 applic BID TOP 09/24/24 22:00 10/01/24 10:41 1 APPLIC Insulin Glargine 15 units DAILY@1000 FL 09/25/24 10:00 10/01/24 10:41 15 UNITS Diagnostic Test (Pha) 1 strip IQ4HR 09/25/24 12:00 10/01/24 12:07 1 STRIP Insulin Human Regular IQ4HR SC 09/25/24 12:00 10/01/24 12:12 3 UNITS Dextrose 50 ml UD PRN IV 09/25/24 09:30 Norepinephrine Bitartrate 32 mg/ Sodium Chloride 250 ml @ 0.234 mls/ hr Q24H IV 09/25/24 12:30 09/26/24 06:47 1.406 MLS/HR Potassium Chloride 100 ml @ 50 mls/hr Q2H IV 09/26/24 06:15 09/26/24 10:14 UNV Methylprednisolone Sodium Succinate 40 mg BID IV 09/29/24 22:00 10/01/24 10:39 40 MG Furosemide 20 mg BIDD IV 09/30/24 06:00 10/01/24 05:14 20 MG Micafungin Sodium 100 mg/Dextrose 100 ml @ 100 mls/hr DAILY IV 09/30/24 10:58 10/01/24 10:42 100 MLS/HR Purified Water 250 ml Q4HR GT 09/30/24 18:00 Examination Physical Examination General: Patient off sedation currently on CPAP trial, able to spontaneously open his eyes. HEENT: Normocephalic, atraumatic, moist mucous membranes Respiratory/pulmonary: Clear lungs bilaterally, no associated crackles or wheezes. Cardiovascular: Normal heart sounds S1 and S2 with no associated murmurs Abdomen: Abdomen nondistended, there is a colostomy bag in the abdomen with no leaks. Abdomen is soft and nontender to palpation. 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 Neurological: Patient is currently on CPAP trial unable to assess cranial nerves. laboratory and microbiology Laboratory Tests 10/01/24 03:00 Test 10/01/24 03:00 Range/Units Serum Glucose 253 H 74-106 mg/dL Microbiology Date/Time Source Procedure Growth Status 09/30/24 16:50 Sacrum Gram Stain - Final Resulted 09/30/24 16:50 Sacrum Wound Culture - Preliminary Resulted 09/22/24 15:00 Blood Blood Culture - Final NO GROWTH AFTER 5 DAYS OF INCUBATION. 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 -free water at 250 cc q.4 has been hold since the NG tube was taken out during extubation -start D5W at 75 cc/hour -creatinine slight increase from 3.32 and BUN is 102 -no need of hemodialysis at this point -strict in's and out -Monitor urine output and kidney function Goals of care discussed with the nurse and imaging scheduler Critical time spent 40min Plan discussed with Dr. Jarquin Addendum Patient seen and examined, plan discussed with resident. Agree with above, we will follow closely increase insulin sliding scale dose if sugars high Plan discussed with: Patient My Orders My Orders Orders - HALI CABALLERO Procedure Category Date Status Time Free Water PHA 09/30/24 In Process 18:00 Dietary Evaluation Review Comments: 1) Matthieu 1 pk daily (ordered per ONS protocol) 2) CCHO 75gm + cardiac 3) Refer Take Up Supervisor on DC 4) Continue current plan of care Expected Outcomes/Goals: To meet >75% estimated needs Fu 3-5 days HALI CABALLERO October 01, 2024 12:33 KILEY JARQUIN MD October 01, 2024 16:44
[2024-10-01] MEDS: D5W 5% 1,000 ML IV SCH (13:08)
[2024-10-01] MEDS: INSULIN LANTUS (GLARGINE) 1 /0.01ml (100units/ml) SC ONE (16:02)
--- NOTE | 2024-10-01 18:13 | DVHPN2 ---
Progress Note - Dictate Date Seen: October 01, 2024 Has the PT tested + for MRSA If YES, has PT been informed?: No Medical Necessity Reason Pt with a Central, PICC or Fol: Yes The following are medically ne: Central Line, Xavier Catheter Subjective Patient was seen and evaluated in follow up in the ICU. Patient is on 3 LPM NC. Patient passed swallow evaluation today and started pureed diet. WBC 12.6, NA 151, BUN 102, Public Stenographer 3.32. Chest x-ray showed left basilar atelectasis and mild diffuse increased prominence of the pulmonary vasculature. vital signs Vital Sign Date Time Temp Pulse Resp B/P (MAP) Pulse Ox O2 Delivery O2 Flow Rate FiO2 10/01/24 12:00 79 10/01/24 12:00 14 96 Nasal Cannula* 3 32 10/01/24 11:00 138/68 (91) 10/01/24 08:00 98.3 98.3 Total Intake and Output 09/30/24 09/30/24 10/01/24 15:00 23:00 07:00 Intake Total 200 ml 0 ml 0 ml Output Total 750 ml 680 ml Balance 200 ml -750 ml -680 ml medications Current Medications Medications Dose Ordered Sig/Paramjit Route Start Time Stop Time Status Last Admin Dose Admin Levalbuterol HCl 1.25 mg Q6HR NEB 09/12/24 06:00 10/01/24 11:05 1.25 MG Ipratropium [place] 0.5 mg Q6HR NEB 09/12/24 06:00 10/01/24 11:04 0.5 MG Pantoprazole Sodium 40 mg DAILY IV 09/13/24 10:00 10/01/24 10:39 40 MG Midazolam HCl 50 ml @ 1 mls/hr Q24H IV 09/17/24 05:30 09/19/24 02:00 1 MLS/HR Vancomycin HCl 0 ml @ 0 mls/hr UD IV 09/17/24 10:00 Enteral Nutritional Formula 1,000 ml 30ML/HR GT 09/17/24 11:00 09/28/24 03:53 1,000 ML Dextrose 50 ml UD PRN IV 09/17/24 11:00 Cancel Fentanyl Citrate 250 ml @ 2.5 mls/hr Q24H IV 09/17/24 11:30 09/24/24 13:34 2.5 MLS/HR Acetaminophen 650 mg Q4HP PRN PO 09/19/24 10:00 09/21/24 07:51 650 MG Cefepime HCl 50 ml @ 12.5 mls/hr DAILY@0900 IV 09/23/24 09:00 10/01/24 09:00 12.5 MLS/HR Heparin Sodium (Porcine) 5,000 units Q12HR SC 09/23/24 10:00 10/01/24 10:40 5,000 UNITS Vasopressin 20 units/Sodium Chloride 100 ml @ 9 mls/hr Q11H7M IV 09/23/24 19:45 Nystatin 1 applic BID TOP 09/24/24 22:00 10/01/24 10:41 1 APPLIC Insulin Glargine 15 units DAILY@1000 SC 09/25/24 10:00 10/01/24 10:41 15 UNITS Diagnostic Test (Pha) 1 strip IQ4HR 09/25/24 12:00 10/01/24 12:07 1 STRIP Insulin Human Regular IQ4HR SC 09/25/24 12:00 10/01/24 12:12 3 UNITS Dextrose 50 ml UD PRN IV 09/25/24 09:30 Norepinephrine Bitartrate 32 mg/ Sodium Chloride 250 ml @ 0.234 mls/ hr Q24H IV 09/25/24 12:30 09/26/24 06:47 1.406 MLS/HR Potassium Chloride 100 ml @ 50 mls/hr Q2H IV 09/26/24 06:15 09/26/24 10:14 UNV Methylprednisolone Sodium Succinate 40 mg BID IV 09/29/24 22:00 10/01/24 10:39 40 MG Furosemide 20 mg BIDD IV 09/30/24 06:00 10/01/24 05:14 20 MG Micafungin Sodium 100 mg/Dextrose 100 ml @ 100 mls/hr DAILY IV 09/30/24 10:58 10/01/24 10:42 100 MLS/HR Purified Water 250 ml Q4HR GT 09/30/24 18:00 Dextrose 1,000 ml @ 75 mls/hr [id number] IV 10/01/24 12:45 10/01/24 13:08 75 MLS/HR objective GENERAL: Alert and oriented x 3. No acute distress. EYES: PERRL, EOMI. Anicteric. HENT: Moist mucous membranes. LUNGS: breath sounds. CARDIOVASCULAR: Regular rate and rhythm. ABDOMEN: Soft, nontender and nondistended. Colostomy bag to the right-sided abdomen. EXTREMITIES: Right AKA. SKIN: Warm, dry. laboratory and microbiology Laboratory Tests 10/01/24 03:00 Test 10/01/24 03:00 Range/Units Serum Glucose 253 H 74-106 mg/dL Problem List Acute on chronic hypoxic respiratory failure secondary to probable CHF exacerbation. Acute on chronic Moderately reduced congestive heart failure exacerbation-NYHA class 4. Pneumonia. AFib, rate controlled on Eliquis. COPD on 3 L home oxygen. Mild coronary artery disease. Sick sinus syndrome status post dual-chamber Biotronik pacemaker 2015. Obstructive apnea on CPAP. Acute cystitis. Diabetes mellitus type 2-A1c 6.4. ? CASS on CKD. Left-sided hydrocele. Anemia likely iron-deficiency. Secondary hypercoagulable state. History of left breast cancer status post surgery and tamoxifen therapy 2007. History of laparoscopic left radical nephrectomy 2013. History of colostomy 2018. Stage I decubitus sacral ulcer. Tunnel hemorrhoids. Diverticulosis. Assessment/Plan Continued all current supportive medical care. IV antibiotics as ordered. Diuretics with Lasix. GI prophylactics. Additional plan as per the hospital course. Critical care time of 45 minutes provided to include time spent evaluation of patient at bedside, when appropriate patient/family education for diagnosis, treatment plan, review of pertinent medical information and discussion of care with specialty providers and PCP. Dietary Evaluation Review Comments: 1) Matthieu 1 pk daily (ordered per ONS protocol) 2) CCHO 75gm + cardiac 3) Refer Wiring Inspector on DC 4) Continue current plan of care Expected Outcomes/Goals: To meet >75% estimated needs Fu 3-5 days Plan discussed with: Patient EVERTON SHELDON MD October 01, 2024 13:28
[2024-10-01] MEDS: methylPREDNISolone SOD SUCC 40 MG/ML VL IV SCH (21:45)
[2024-10-02] VITALS (99 sets, daily range): BP systolic 106–151; BP diastolic 43–74; PULSE 60–77; RESP 12–32; TEMP 97.7–97.9; O2SAT 84–100
[2024-10-02 04:01] LABS: Anion Gap 6 (5-15); Carbon Dioxide 30 mmol/L (20-31); Potassium 3.7 mmol/L (3.5-5.1); Sodium 144 mmol/L (136-145)
[2024-10-02 04:02] LABS: Calcium 9.9 mg/dL (8.7-10.4)
[2024-10-02 04:05] LABS: Chloride 108 mmol/L (98-107)
[2024-10-02 04:07] LABS: BUN/Creatinine Ratio 31.5 (10.0-20.0)
[2024-10-02 04:39] LABS: Blood Urea Nitrogen 34 mg/dL (9-23); Glucose 164 mg/dL (74-106)
--- NOTE | 2024-10-02 05:44 | DVH ---
EXAM: XR Chest, 1 View CLINICAL INDICATION: Intubated TECHNIQUE: Frontal view of the chest. COMPARISON: XY CHEST XRAY 1 VIEW on DOS: 10/01/24, XY CHEST PORTABLE on DOS: 09/30/24, XY CHEST PORTABL E on DOS: 09/30/24, XY CHEST PORTABLE on DOS: 09/29/24, XY CHEST XRAY 1 VIEW on DOS: 09/29/24 FINDINGS: LUNGS AND PLEURAL SPACES: See below. HEART: Cardiomegaly with mild congestion. MEDIASTINUM: Unremarkable. Normal mediastinal contour. BONES/JOINTS: Unremarkable. No acute fracture. TUBES, LINES AND DEVICES: Left-sided cardiac pacemaker. OTHER FINDINGS: . . IMPRESSION: Cardiomegaly with mild congestion.
[2024-10-02 09:10] LABS: Basophils # (auto) 0.1 10 ^3/uL (0-0.2); Basophils % (auto) 0.4 % (0.0-2.0); Eosinophils # (auto) 0 10 ^3/uL (0-0.8); Hematocrit 40.7 % (41.0-53.0); Hemoglobin 12.4 g/dL (13.5-17.5); Lymphocytes # (auto) 0.4 10 ^3/uL (0.4-5.4); Lymphocytes % (auto) 2.7 % (10.0-50.0); Mean Corpuscular Hemoglobin 24.6 pg (28.0-32.0); Mean Corpuscular Hgb Conc. 30.6 g/dL (32.0-36.0); Mean Corpuscular Volume 80.4 fL (80.0-100.0); Monocytes # (auto) 0.7 10 ^3/uL (0-1.3); Monocytes % (auto) 4.9 % (0.0-12.0); Neutrophils # (auto) 12.4 10 ^3/uL (1.6-8.6); Nucleated Red Blood Cells % 0.1 %; Platelet Count (auto) 150 10^3/uL (140-450); Red Blood Cells 5.06 10^6/uL (4.5-5.90); Red Cell Distribution Width 23.2 % (11.8-14.3); White Blood Cell 13.5 10^3/uL (4.4-10.8)
[2024-10-02] MEDS: INSULIN LANTUS (GLARGINE) 1 /0.01ml (100units/ml) SC SCH (10:23)
--- NOTE | 2024-10-02 10:59 | DVHPN2 ---
Progress Note Date Seen: October 02, 2024 Resident Creating Document: HALI CABALLERO RESIDENT Has the PT tested + for MRSA If YES, has PT been informed?: No Medical Necessity Reason Pt with a Central, PICC or Fol: Yes The following are medically ne: Central Line, Xavier Catheter Subjective Review of Systems Patient seen and examined at bedside. Patient is status post extubation but is not following commands at all slightly confused and per nurse is not eating enough food. There is no pedal edema in the left lower extremity. Patient is currently on 3 L of oxygen through nasal cannula saturating 96%. Today, creatinine went down from 3.32 to 2.96 and BUN 106. We will continue furosemide at 20 mg IV b.i.d.. Today in's of 1410 and out's of 1560 with a negative balance of 150 cc in the last 24 hours. There was a lab error in the morning that further was confirm with new labs. We will start the patient back of d5w at 75cc/hr since the hypernatremia still there at 149. We will also replace potassium which was slightly low at 3.4. ROS unable to obtain due to patient being slightly confused and not following commands. Objective vital signs Vital Sign Date Time Temp Pulse Resp B/P (MAP) Pulse Ox O2 Delivery O2 Flow Rate FiO2 10/02/24 08:00 69 25 96 Nasal Cannula* 3 32 10/02/24 06:45 135/64 (87) 10/02/24 04:00 97.7 97.7 Total Intake and Output 10/01/24 10/01/24 10/02/24 15:00 23:00 07:00 Intake Total 225 ml 600 ml 585 ml Output Total 900 ml 660 ml Balance 225 ml -300 ml -75 ml medications Current Medications Medications Dose Ordered Sig/Paramjit Route Start Time Stop Time Status Last Admin Dose Admin Levalbuterol HCl 1.25 mg Q6HR NEB 09/12/24 06:00 10/02/24 06:54 1.25 MG Ipratropium [place] 0.5 mg Q6HR NEB 09/12/24 06:00 10/02/24 06:54 0.5 MG Pantoprazole Sodium 40 mg DAILY IV 09/13/24 10:00 10/02/24 10:10 40 MG Vancomycin HCl 0 ml @ 0 mls/hr UD IV 09/17/24 10:00 Dextrose 50 ml UD PRN IV 09/17/24 11:00 Cancel Acetaminophen 650 mg Q4HP PRN PO 09/19/24 10:00 09/21/24 07:51 650 MG Cefepime HCl 50 ml @ 12.5 mls/hr DAILY@0900 IV 09/23/24 09:00 10/02/24 08:15 12.5 MLS/HR Heparin Sodium (Porcine) 5,000 units Q12HR SC 09/23/24 10:00 10/02/24 10:13 5,000 UNITS Nystatin 1 applic BID TOP 09/24/24 22:00 10/02/24 10:25 1 APPLIC Diagnostic Test (Pha) 1 strip IQ4HR 09/25/24 12:00 10/02/24 08:14 1 STRIP Insulin Human Regular IQ4HR SC 09/25/24 12:00 10/02/24 08:14 9 UNITS Dextrose 50 ml UD PRN IV 09/25/24 09:30 Potassium Chloride 100 ml @ 50 mls/hr Q2H IV 09/26/24 06:15 09/26/24 10:14 UNV Furosemide 20 mg BIDD IV 09/30/24 06:00 10/02/24 05:40 20 MG Micafungin Sodium 100 mg/Dextrose 100 ml @ 100 mls/hr DAILY IV 09/30/24 10:58 10/01/24 10:42 100 MLS/HR Methylprednisolone Sodium Succinate 20 mg BID IV 10/01/24 22:00 10/02/24 10:25 20 MG Insulin Glargine 25 units DAILY@1000 SC 10/02/24 10:00 10/02/24 10:23 25 UNITS Examination Physical Examination General: Patient is status post extubation. Patient is able to spontaneously open his eyes but is slightly confused. HEENT: Normocephalic, atraumatic, moist mucous membranes Respiratory/pulmonary: Clear lungs bilaterally, no associated crackles or wheezes. Cardiovascular: Normal heart sounds S1 and S2 with no associated murmurs Abdomen: Abdomen nondistended, there is a colostomy bag in the abdomen with no leaks. Abdomen is soft and nontender to palpation. 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 Neurological: Patient is but disoriented and confused at this time. laboratory and microbiology Laboratory Tests 10/02/24 08:50 10/02/24 03:13 Test 10/02/24 03:13 Range/Units Serum Glucose 164 H 74-106 mg/dL Microbiology Date/Time Source Procedure Growth Status 09/30/24 16:50 Sacrum Gram Stain - Final Resulted 09/30/24 16:50 Sacrum Wound Culture - Preliminary Resulted 09/22/24 15:00 Blood Blood Culture - Final NO GROWTH AFTER 5 DAYS OF INCUBATION. 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 -free water at 250 cc q.4 has been hold since the NG tube was taken out during extubation -Restart D5W at 75 cc/hour -today creatinine decreased from 3.32 to 2.96 and BUN is 106 -strict in's and out -Monitor urine output and kidney function Goals of care discussed with the nurse and website/blog editor Critical time spent 40min Plan discussed with Dr. Jarquin Addendum Patient seen and examined, plan discussed with resident. Agree with above, we will follow closely Plan discussed with: Other Dietary Evaluation Review Comments: 1) Matthieu 1 pk daily (ordered per ONS protocol) 2) CCHO 75gm + cardiac 3) Refer Assembly Repairer on DC 4) Continue current plan of care Expected Outcomes/Goals: To meet >75% estimated needs Fu 3-5 days HALI CABALLERO RESIDENT October 02, 2024 10:59 KILEY JARQUIN MD October 02, 2024 19:54
[2024-10-02 11:15] LABS: Chloride 102 mmol/L (98-107)
[2024-10-02 11:16] LABS: Anion Gap 11 (5-15)
[2024-10-02 11:22] LABS: BUN/Creatinine Ratio 35.8 (10.0-20.0)
[2024-10-02 11:36] LABS: Blood Urea Nitrogen 106 mg/dL (9-23); Carbon Dioxide 36 mmol/L (20-31); Glucose 234 mg/dL (74-106); Potassium 3.4 mmol/L (3.5-5.1); Sodium 149 mmol/L (136-145)
[2024-10-02] MEDS ORDERED: POTASSIUM CHL 20MEQ/50ML 50 ML IV ONE (12:45)
[2024-10-02] MEDS: D5W 5% 1,000 ML IV SCH (14:08)
[2024-10-02] MEDS: VANCOMYCIN 500mg/100mL 100 ML IV ONE (15:34)
[2024-10-02] MEDS: POTASSIUM EFFERVESENT TAB 25 MEQ PO ONE (16:00)
[2024-10-02] MEDS: POTASSIUM CHLORIDE 20 MEQ, LIDOCAINE 1% (LOCAL ANESTH.) 2 ML in SODIUM CHL 0.9% 100 ML IV ONE (17:30)
--- NOTE | 2024-10-02 19:24 | DVHPNRES ---
Progress Note Date Seen: October 02, 2024 Resident Creating Document: DIOGO CORTEZ RESIDENT Has the PT tested + for MRSA If YES, has PT been informed?: No Medical Necessity Reason Pt with a Central, PICC or Fol: Yes The following are medically ne: Central Line, Xavier Catheter Subjective Review of Systems Patient seen and examined at the bedside. Alert and oriented x2 Extubated on 09/30/2024 Now on 3 L oxygen with saturation 93% Good urinary output with a negative balance 1230 ml no fever overnight and T-max is 98.8 Patient is on pureed diet Objective vital signs Vital Sign Date Time Temp Pulse Resp B/P (MAP) Pulse Ox O2 Delivery O2 Flow Rate FiO2 10/02/24 18:43 27 96 Oxymizer 6 N/A 10/02/24 18:36 117/53 10/02/24 18:09 73 10/02/24 08:00 97.8 97.8 Total Intake and Output 10/01/24 10/01/24 10/02/24 15:00 23:00 07:00 Intake Total 225 ml 600 ml 585 ml Output Total 900 ml 660 ml Balance 225 ml -300 ml -75 ml medications Current Medications Medications Dose Ordered Sig/Paramjit Route Start Time Stop Time Status Last Admin Dose Admin Levalbuterol HCl 1.25 mg Q6HR NEB 09/12/24 06:00 10/02/24 18:19 1.25 MG Ipratropium [place] 0.5 mg Q6HR NEB 09/12/24 06:00 10/02/24 18:19 0.5 MG Pantoprazole Sodium 40 mg DAILY IV 09/13/24 10:00 10/02/24 10:10 40 MG Vancomycin HCl 0 ml @ 0 mls/hr UD IV 09/17/24 10:00 Dextrose 50 ml UD PRN IV 09/17/24 11:00 Cancel Acetaminophen 650 mg Q4HP PRN PO 09/19/24 10:00 09/21/24 07:51 650 MG Heparin Sodium (Porcine) 5,000 units Q12HR SC 09/23/24 10:00 10/02/24 10:13 5,000 UNITS Nystatin 1 applic BID TOP 09/24/24 22:00 10/02/24 10:25 1 APPLIC Diagnostic Test (Pha) 1 strip IQ4HR 09/25/24 12:00 10/02/24 15:34 1 STRIP Insulin Human Regular IQ4HR SC 09/25/24 12:00 10/02/24 15:29 3 UNITS Dextrose 50 ml UD PRN IV 09/25/24 09:30 Potassium Chloride 100 ml @ 50 mls/hr Q2H IV 09/26/24 06:15 09/26/24 10:14 UNV Furosemide 20 mg BIDD IV 09/30/24 06:00 10/02/24 18:36 20 MG Insulin Glargine 25 units DAILY@1000 SC 10/02/24 10:00 10/02/24 10:23 25 UNITS Prednisone 40 mg DAILY PO 10/03/24 10:00 Ceftriaxone Sodium 50 ml @ 100 mls/hr DAILY@09 IV 10/03/24 09:00 Fluconazole 200 mg DAILY PO 10/03/24 10:00 Dextrose 1,000 ml @ 75 mls/hr [id number] IV 10/02/24 12:00 10/02/24 14:08 75 MLS/HR Examination Examination Constitutional: Patient is currently alert and oriented x2 and on 3 L oxygen through nasal cannula Gen - no pallor, no icterus, no cyanosis, no clubbing Skin - Patients skin is warm and dry. Skin of the left lower extremity below the knee is mottled with poor blood supply . HEENT - normocephalic, atraumatic, moist mucous membranes. Neck - full ROM, no LAD, JVD could not be assessed Pulmonary - B/L diminished breath sounds, no wheezing, no stridor. cardiovascular - variable S1,S2 heard, no added sounds no murmurs heard. GI - soft abdomen. no hepatospleenomegaly. Bowel sounds normoactive Extremities- right LE AKA with 2+ edema, left LE with mottled appearacne and pulse not palpable except femoral pulsation. Neurological - Alert, oriented x2, sensory intact, upper extremity 5/5, right below-knee amputation. Left lower exrtremity 2/5 laboratory and microbiology Laboratory Tests 10/02/24 10:45 10/02/24 08:50 Test 10/02/24 10:45 Range/Units Serum Glucose 234 H 74-106 mg/dL Microbiology Date/Time Source Procedure Growth Status 09/30/24 16:50 Sacrum Gram Stain - Final Resulted 09/30/24 16:50 Sacrum Wound Culture - Preliminary Resulted 09/22/24 15:00 Blood Blood Culture - Final NO GROWTH AFTER 5 DAYS OF INCUBATION. Complete 09/22/24 11:00 Sputum Gram Stain - Final Complete 09/22/24 11:00 Respiratory Culture - Final Presumptive Jessica tropicalis Complete 09/22/24 10:50 Urine - [place] Urine Culture - Final Complete Labs and/or images reviewed: Labs reviewed by me, Image(s) reviewed by me Problem List/Assessment/Plan Problem List/Assessment/Plan Assessment and plan: Neurology Acute metabolic encephalopathy likely due to hypercapnia - Extubated on 09/30/24 Respiratory Acute on chronic hypercarbic respiratory failure COPD MRSA Pneumonia Severe pulmonary hypertension Obstructive sleep apnea - DuoNebs q.6 hours - sputum culture showing growth of MRSA - repeated culture showing growth of yeast - IV antibiotics vancomycin and ceftriaxone and fluconazole - Prednisone 40 mg po daily Cardiovascular Shock likely due to sepsis resolved Acute on chronic heart failure with a reduced ejection fraction NYHA class 4 Paroxysmal atrial fibrillation , sick sinus syndrome with s/p dual-chamber pacemaker Coronary artery disease (coronary angiogram in 2020) Severe pulmonary hypertension with RV hypokinesis Peripheral artery disease with s/p right above-knee amputation - IV Lasix 20 mg bid - anticoagulation currently on prophylactic heparin Nephrology CASS 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 Acute complicated cystitis - on HD, removed 2.5L on 09/18, and 2.5L on 09/19, further HD held - Good urine output - nephrology on board Infectious disease Septic shock likely due to UTI versus pneumonia UTI growing E coli MRSA pneumonia - on IV cefepime and vancomycin and micafungin Metabolic Hypokalemia and hypernatremia -Replenished Endocrine Type 2 diabetes mellitus with hemoglobin A1c 6.4 - Lantus 25 units at QAM and moderate sliding scale of insulin Gastroenterology S/p diversion colostomy Midline Xavier's catheter placed on 09/12 Diet: Via NG tube PUD prophylaxis: Protonix DVT prophylaxis: heparin Goals of care discussed with the patient's for over 21 minutes. Full Code Critical care time spent excluding procedures: 46 minutes Plan discussed with Dr. Moreno Plan discussed with: Other (RN) My Orders My Orders Orders - DIOGO CORTEZ RESIDENT Procedure Category Date Status Time Communication Order ORDERS 10/02/24 Transmitted 08:35 Dietary Evaluation Review Comments: 1) Matthieu 1 pk daily (ordered per ONS protocol) 2) CCHO 75gm + cardiac 3) Refer Gold Letterer on DC 4) Continue current plan of care Expected Outcomes/Goals: To meet >75% estimated needs Fu 3-5 days Date of Service: October 02, 2024 Billing Provider: ENMA MORENO MD Common Visit Codes: [id number] CARE 30-74 MIN DIOGO CORTEZ RESIDENT October 02, 2024 19:24 ENMA MORENO MD October 04, 2024 22:15
--- NOTE | 2024-10-02 23:45 | DVHPN2 ---
Progress Note - Dictate Date Seen: October 02, 2024 Has the PT tested + for MRSA If YES, has PT been informed?: No Medical Necessity Reason Pt with a Central, PICC or Fol: Yes The following are medically ne: Central Line, Xavier Catheter Subjective Patient was seen and evaluated in follow up in the ICU. Patient is confused and not following any commands. Per RN, the patient has poor po intake. Patient is on 3 LPM NC. WBC 13.5, NA 149, K 3.4, BUN 106, EYE SURGEON 2.96, GLUC 245, CA 11. Chest x-ray showed cardiomegaly with mild congestion. vital signs Vital Sign Date Time Temp Pulse Resp B/P (MAP) Pulse Ox O2 Delivery O2 Flow Rate FiO2 10/02/24 08:00 69 25 96 Nasal Cannula* 3 32 10/02/24 06:45 135/64 (87) 10/02/24 04:00 97.7 97.7 Total Intake and Output 10/01/24 10/01/24 10/02/24 15:00 23:00 07:00 Intake Total 225 ml 600 ml 585 ml Output Total 900 ml 660 ml Balance 225 ml -300 ml -75 ml medications Current Medications Medications Dose Ordered Sig/Paramjit Route Start Time Stop Time Status Last Admin Dose Admin Levalbuterol HCl 1.25 mg Q6HR NEB 09/12/24 06:00 10/02/24 06:54 1.25 MG Ipratropium [place] 0.5 mg Q6HR NEB 09/12/24 06:00 10/02/24 06:54 0.5 MG Pantoprazole Sodium 40 mg DAILY IV 09/13/24 10:00 10/02/24 10:10 40 MG Vancomycin HCl 0 ml @ 0 mls/hr UD IV 09/17/24 10:00 Dextrose 50 ml UD PRN IV 09/17/24 11:00 Cancel Acetaminophen 650 mg Q4HP PRN PO 09/19/24 10:00 09/21/24 07:51 650 MG Heparin Sodium (Porcine) 5,000 units Q12HR SC 09/23/24 10:00 10/02/24 10:13 5,000 UNITS Nystatin 1 applic BID TOP 09/24/24 22:00 10/02/24 10:25 1 APPLIC Diagnostic Test (Pha) 1 strip IQ4HR 09/25/24 12:00 10/02/24 08:14 1 STRIP Insulin Human Regular IQ4HR SC 09/25/24 12:00 10/02/24 08:14 9 UNITS Dextrose 50 ml UD PRN IV 09/25/24 09:30 Potassium Chloride 100 ml @ 50 mls/hr Q2H IV 09/26/24 06:15 09/26/24 10:14 UNV Furosemide 20 mg BIDD IV 09/30/24 06:00 10/02/24 05:40 20 MG Insulin Glargine 25 units DAILY@1000 SC 10/02/24 10:00 10/02/24 10:23 25 UNITS Prednisone 40 mg DAILY PO 10/03/24 10:00 UNV Ceftriaxone Sodium 50 ml @ 100 mls/hr DAILY@09 IV 10/03/24 09:00 UNV Fluconazole 200 mg DAILY PO 10/03/24 10:00 UNV objective GENERAL: Alert and oriented x 2. No acute distress. EYES: PERRL, EOMI. Anicteric. HENT: Moist mucous membranes. LUNGS: breath sounds. CARDIOVASCULAR: Regular rate and rhythm. ABDOMEN: Soft, nontender and nondistended. Colostomy bag to the right-sided abdomen. EXTREMITIES: Right AKA. SKIN: Warm, dry. laboratory and microbiology Laboratory Tests 10/02/24 10:45 10/02/24 08:50 Test 10/02/24 10:45 Range/Units Serum Glucose 234 H 74-106 mg/dL Problem List Acute on chronic hypoxic respiratory failure secondary to probable CHF exacerbation. Acute on chronic Moderately reduced congestive heart failure exacerbation-NYHA class 4. Pneumonia. AFib, rate controlled on Eliquis. COPD on 3 L home oxygen. Mild coronary artery disease. Sick sinus syndrome status post dual-chamber Biotronik pacemaker 2015. Obstructive apnea on CPAP. Acute cystitis. Diabetes mellitus type 2-A1c 6.4. ? CASS on CKD. Left-sided hydrocele. Anemia likely iron-deficiency. Secondary hypercoagulable state. History of left breast cancer status post surgery and tamoxifen therapy 2007. History of laparoscopic left radical nephrectomy 2013. History of colostomy 2019. Stage I decubitus sacral ulcer. Tunnel hemorrhoids. Diverticulosis. Assessment/Plan Continued all current supportive medical care. IV antibiotics as ordered. Diuretics with Lasix. GI prophylactics. Additional plan as per the hospital course. Critical care time of 45 minutes provided to include time spent evaluation of patient at bedside, when appropriate patient/family education for diagnosis, treatment plan, review of pertinent medical information and discussion of care with specialty providers and PCP. Dietary Evaluation Review Comments: 1) Matthieu 1 pk daily (ordered per ONS protocol) 2) CCHO 75gm + cardiac 3) Refer Crawler Tractor Operator on DC 4) Continue current plan of care Expected Outcomes/Goals: To meet >75% estimated needs Fu 3-5 days Plan discussed with: Other EVERTON SHELDON MD October 02, 2024 11:49
[2024-10-03] VITALS (107 sets, daily range): BP systolic 80–172; BP diastolic 52–91; PULSE 61–78; RESP 11–34; TEMP 97.2–98; O2SAT 90–100
[2024-10-03 03:57] LABS: Mean Corpuscular Volume 78.8 fL (80.0-100.0)
[2024-10-03 04:00] LABS: Hematocrit 38.6 % (41.0-53.0); Hemoglobin 12.2 g/dL (13.5-17.5); Mean Corpuscular Hgb Conc. 31.7 g/dL (32.0-36.0); Platelet Count (auto) 143 10^3/uL (140-450); Red Cell Distribution Width 23.1 % (11.8-14.3); White Blood Cell 13.3 10^3/uL (4.4-10.8)
[2024-10-03 04:02] LABS: Anion Gap 13 (5-15); Carbon Dioxide 31 mmol/L (20-31); Chloride 99 mmol/L (98-107); Potassium 3.8 mmol/L (3.5-5.1); Sodium 143 mmol/L (136-145)
[2024-10-03 04:03] LABS: Calcium 9.6 mg/dL (8.7-10.4)
[2024-10-03 04:08] LABS: BUN/Creatinine Ratio 37.3 (10.0-20.0); Basophils % (manual) 0 (0.0-2.0); Blast Cells 0; Eosinophils % (manual) 0 (0-7); Promyelocytes % 0; Reactive Lymphocytes 0
[2024-10-03 04:16] LABS: Blood Urea Nitrogen 106 mg/dL (9-23); Glucose 320 mg/dL (74-106)
[2024-10-03 05:43] LABS: Anisocytosis Slight; Band Neutrophils % (manual) 1; Lymphocytes % (manual) 8 (10.0-50.0); Metamyelocytes % 1; Monocytes % (manual) 6 (0-12); Myelocytes % 2
[2024-10-03 05:44] LABS: Ovalocytes FEW; Platelet Estimate Adequate
--- NOTE | 2024-10-03 05:45 | DVH ---
EXAM: XR Chest, 1 View CLINICAL INDICATION: Mechanical ventilation TECHNIQUE: Frontal view of the chest. COMPARISON: XY CHEST XRAY 1 VIEW on DOS: 10/02/24, XY CHEST XRAY 1 VIEW on DOS: 10/01/24, XY CHEST PORT ABLE on DOS: 09/30/24, XY CHEST PORTABLE on DOS: 09/30/24, XY CHEST PORTABLE on DOS: 09/29/24 FINDINGS: LUNGS AND PLEURAL SPACES: See below. HEART: Cardiomegaly with mild congestion. MEDIASTINUM: Unremarkable. Normal mediastinal contour. BONES/JOINTS: Unremarkable. No acute fracture. TUBES, LINES AND DEVICES: Left-sided cardiac pacemaker. OTHER FINDINGS: . . . . IMPRESSION: Cardiomegaly with mild congestion.
[2024-10-03] MEDS: INSULIN LANTUS (GLARGINE) 1 /0.01ml (100units/ml) SC SCH (08:15)
[2024-10-03 08:58] LABS: Base Excess 5.3 mmol/L (-2.0-3.0)
[2024-10-03] MEDS: FLUCONAZOLE 100 MG TAB PO SCH (10:14)
[2024-10-03] MEDS: predniSONE 20 MG TAB PO SCH (10:14)
[2024-10-03] MEDS: cefTRIAXone 1GM/50ML D5W 50 ML IV SCH (10:14)
[2024-10-03] MEDS: SOD CHL 0.45% 1,000 ML IV SCH (13:30)
--- NOTE | 2024-10-03 13:35 | DVHPN2 ---
Progress Note Date Seen: October 03, 2024 Resident Creating Document: HALI CABALLERO RESIDENT Has the PT tested + for MRSA If YES, has PT been informed?: No Medical Necessity Reason Pt with a Central, PICC or Fol: Yes The following are medically ne: Central Line, Xavier Catheter Subjective Review of Systems Patient seen and examined at bedside. Patient is status post extubation, currently on 2 L of of oxygen through nasal cannula. Patient is alert only on place but not in person or time. Patient looks confused and unable to establish any conversation with medical staff. IV D5W was discontinued and we will start the patient on 0.45 half NS at 75 cc/hour. Today creatinine keeps improving. In's were 1460 cc and out's of 1730 cc for a negative balance of 270 cc. We will continue patient on IV fluids as described before. We will continue monitoring kidney function closely. ROS unable to obtain due to patient's current status of confusion. Other Systems: Patient seen and examined by myself today on rounds with the medicine resident, I agree with his assessment and plan as documented in his note Objective vital signs Vital Sign Date Time Temp Pulse Resp B/P (MAP) Pulse Ox O2 Delivery O2 Flow Rate FiO2 10/03/24 13:00 73 13 98 10/03/24 12:00 97.9 97.9 10/03/24 12:00 Nasal Cannula* 3 32 Total Intake and Output 10/02/24 10/02/24 10/03/24 15:00 23:00 07:00 Intake Total 75 ml 800 ml 585 ml Output Total 780 ml 950 ml Balance 75 ml 20 ml -365 ml medications Current Medications Medications Dose Ordered Sig/Paramjit Route Start Time Stop Time Status Last Admin Dose Admin Levalbuterol HCl 1.25 mg Q6HR NEB 09/12/24 06:00 10/03/24 11:54 1.25 MG Ipratropium [place] 0.5 mg Q6HR NEB 09/12/24 06:00 10/03/24 11:54 0.5 MG Pantoprazole Sodium 40 mg DAILY IV 09/13/24 10:00 10/03/24 10:07 40 MG Vancomycin HCl 0 ml @ 0 mls/hr UD IV 09/17/24 10:00 Dextrose 50 ml UD PRN IV 09/17/24 11:00 Cancel Acetaminophen 650 mg Q4HP PRN PO 09/19/24 10:00 09/21/24 07:51 650 MG Heparin Sodium (Porcine) 5,000 units Q12HR SC 09/23/24 10:00 10/03/24 10:08 5,000 UNITS Nystatin 1 applic BID TOP 09/24/24 22:00 10/03/24 10:16 1 APPLIC Diagnostic Test (Pha) 1 strip IQ4HR 09/25/24 12:00 10/03/24 12:00 1 STRIP Insulin Human Regular IQ4HR SC 09/25/24 12:00 10/03/24 08:00 6 UNITS Dextrose 50 ml UD PRN IV 09/25/24 09:30 Potassium Chloride 100 ml @ 50 mls/hr Q2H IV 09/26/24 06:15 09/26/24 10:14 UNV Furosemide 20 mg BIDD IV 09/30/24 06:00 10/03/24 05:54 20 MG Prednisone 40 mg DAILY PO 10/03/24 10:00 10/03/24 10:14 40 MG Ceftriaxone Sodium 50 ml @ 100 mls/hr DAILY@09 IV 10/03/24 09:00 10/03/24 10:14 100 MLS/HR Fluconazole 200 mg DAILY PO 10/03/24 10:00 10/03/24 10:14 200 MG Insulin Glargine 30 units DAILY@1000 SC 10/03/24 08:15 10/03/24 10:16 30 UNITS Enteral Nutritional Formula 240 ml BIDWM PO 10/03/24 18:00 Examination Physical Examination General: Patient is status post extubation. Patient is alert in place but not in person or time. Patient is still confused and unable to communicate properly. HEENT: Normocephalic, atraumatic, moist mucous membranes Respiratory/pulmonary: Clear lungs bilaterally, no associated crackles or wheezes. Cardiovascular: Normal heart sounds S1 and S2 with no associated murmurs Abdomen: Abdomen nondistended, there is a colostomy bag in the abdomen with no leaks. Abdomen is soft and nontender to palpation. 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 Neurological: Patient is disoriented and confused at this time. laboratory and microbiology Laboratory Tests 10/03/24 03:20 Test 10/03/24 03:20 Range/Units Serum Glucose 320 H 74-106 mg/dL Microbiology Date/Time Source Procedure Growth Status 09/30/24 16:50 Sacrum Gram Stain - Final Resulted 09/30/24 16:50 Sacrum Wound Culture - Preliminary Resulted 09/22/24 15:00 Blood Blood Culture - Final NO GROWTH AFTER 5 DAYS OF INCUBATION. 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 -discontinue D5W -start 0.45 NS at 75 cc/hour -today creatinine is improving -strict in's and out (ins of 1460, out's of 1730 for a negative balance of 270 cc) -Monitor urine output and kidney function Goals of care discussed with the nurse and last trimmer Critical time spent 40min Plan discussed with Dr. Prieto Plan discussed with: Patient, Other Dietary Evaluation Review Comments: 1) Matthieu 1 pk daily (ordered per ONS protocol) 2) CCHO 75gm + cardiac 3) Refer Portable Track Line Marker on DC 4) Continue current plan of care Expected Outcomes/Goals: To meet >75% estimated needs Fu 3-5 days HALI CABALLERO October 03, 2024 13:35 LI PRIETO MD October 03, 2024 17:30
--- NOTE | 2024-10-03 17:51 | DVHPN2 ---
Progress Note - Dictate Date Seen: October 03, 2024 Has the PT tested + for MRSA If YES, has PT been informed?: No Medical Necessity Reason Pt with a Central, PICC or Fol: Yes The following are medically ne: Central Line, Xavier Catheter Subjective Patient was seen and evaluated in follow up in the ICU. Patient is confused. Patient is on 2 L Oxymizer. WBC 13.3, BUN 106, BARK SCALER 2.84, GLUC 205. Chest x-ray showed cardiomegaly with mild congestion. vital signs Vital Sign Date Time Temp Pulse Resp B/P (MAP) Pulse Ox O2 Delivery O2 Flow Rate FiO2 10/03/24 08:58 66 17 120/56 99 2.0 28 10/03/24 06:11 Oxymizer 10/03/24 04:15 97.5 97.5 Total Intake and Output 10/02/24 10/02/24 10/03/24 15:00 23:00 07:00 Intake Total 75 ml 800 ml 585 ml Output Total 780 ml 950 ml Balance 75 ml 20 ml -365 ml medications Current Medications Medications Dose Ordered Sig/Paramjit Route Start Time Stop Time Status Last Admin Dose Admin Levalbuterol HCl 1.25 mg Q6HR NEB 09/12/24 06:00 10/03/24 06:11 1.25 MG Ipratropium [place] 0.5 mg Q6HR NEB 09/12/24 06:00 10/03/24 06:11 0.5 MG Pantoprazole Sodium 40 mg DAILY IV 09/13/24 10:00 10/03/24 10:07 40 MG Vancomycin HCl 0 ml @ 0 mls/hr UD IV 09/17/24 10:00 Dextrose 50 ml UD PRN IV 09/17/24 11:00 Cancel Acetaminophen 650 mg Q4HP PRN PO 09/19/24 10:00 09/21/24 07:51 650 MG Heparin Sodium (Porcine) 5,000 units Q12HR SC 09/23/24 10:00 10/03/24 10:08 5,000 UNITS Nystatin 1 applic BID TOP 09/24/24 22:00 10/03/24 10:16 1 APPLIC Diagnostic Test (Pha) 1 strip IQ4HR 09/25/24 12:00 10/03/24 08:00 1 STRIP Insulin Human Regular IQ4HR SC 09/25/24 12:00 10/03/24 08:00 6 UNITS Dextrose 50 ml UD PRN IV 09/25/24 09:30 Potassium Chloride 100 ml @ 50 mls/hr Q2H IV 09/26/24 06:15 09/26/24 10:14 UNV Furosemide 20 mg BIDD IV 09/30/24 06:00 10/03/24 05:54 20 MG Prednisone 40 mg DAILY PO 10/03/24 10:00 10/03/24 10:14 40 MG Ceftriaxone Sodium 50 ml @ 100 mls/hr DAILY@09 IV 10/03/24 09:00 10/03/24 10:14 100 MLS/HR Fluconazole 200 mg DAILY PO 10/03/24 10:00 10/03/24 10:14 200 MG Insulin Glargine 30 units DAILY@1000 SC 10/03/24 08:15 10/03/24 10:16 30 UNITS Enteral Nutritional Formula 240 ml BIDWM PO 10/03/24 18:00 objective GENERAL: Alert and oriented x 2. No acute distress. EYES: PERRL, EOMI. Anicteric. HENT: Moist mucous membranes. LUNGS: breath sounds. CARDIOVASCULAR: Regular rate and rhythm. ABDOMEN: Soft, nontender and nondistended. Colostomy bag to the right-sided abdomen. EXTREMITIES: Right AKA. SKIN: Warm, dry. laboratory and microbiology Laboratory Tests 10/03/24 03:20 Test 10/03/24 03:20 Range/Units Serum Glucose 320 H 74-106 mg/dL Problem List Acute on chronic hypoxic respiratory failure secondary to probable CHF exacerbation. Acute on chronic Moderately reduced congestive heart failure exacerbation-NYHA class 4. Pneumonia. AFib, rate controlled on Eliquis. COPD on 3 L home oxygen. Mild coronary artery disease. Sick sinus syndrome status post dual-chamber Biotronik pacemaker 2016. Obstructive apnea on CPAP. Acute cystitis. Diabetes mellitus type 2-A1c 6.4. ? CASS on CKD. Left-sided hydrocele. Anemia likely iron-deficiency. Secondary hypercoagulable state. History of left breast cancer status post surgery and tamoxifen therapy 2007. History of laparoscopic left radical nephrectomy 2013. History of colostomy 2019. Stage I decubitus sacral ulcer. Tunnel hemorrhoids. Diverticulosis. Assessment/Plan Continued all current supportive medical care. IV antibiotics as ordered. Diuretics with Lasix. GI prophylactics. Additional plan as per the hospital course. Critical care time of 45 minutes provided to include time spent evaluation of patient at bedside, when appropriate patient/family education for diagnosis, treatment plan, review of pertinent medical information and discussion of care with specialty providers and PCP. Dietary Evaluation Review Comments: 1) Matthieu 1 pk daily (ordered per ONS protocol) 2) CCHO 75gm + cardiac 3) Refer Delicate Fabrics Presser on DC 4) Continue current plan of care Expected Outcomes/Goals: To meet >75% estimated needs Fu 3-5 days Plan discussed with: Other EVERTON SHELDON MD October 03, 2024 11:39
[2024-10-03 17:56] LABS: Urine Bacteria None Seen /hpf (None Seen)
[2024-10-03] MEDS: Ensure HIGH Protein Chocolate 8oz Bottle PO SCH (18:00)
[2024-10-03 18:36] LABS: Urine Blood 3+ /uL (Negative); Urine Clarity Clear (Clear); Urine Color Light-Yellow (Yellow); Urine Hyaline Cast FEW /lpf (0 - 2); Urine Mucus FEW (None Seen); Urine Protein, UAD 1+ (Negative); Urine Specific Gravity 1.011 (1.001-1.035); Urine Squamous Epithelial Cell FEW /hpf (<5); Urine Urobilinogen Normal (Negative); Urine WBC 5 /HPF (0-3)
--- NOTE | 2024-10-03 18:42 | DVHPNRES ---
Progress Note Date Seen: October 03, 2024 Resident Creating Document: DIOGO CORTEZ RESIDENT Has the PT tested + for MRSA If YES, has PT been informed?: No Medical Necessity Reason Pt with a Central, PICC or Fol: Yes The following are medically ne: Central Line, Xavier Catheter Subjective Review of Systems Patient was a 79-year-old male with a past medical history as described below presented to the hospital with a chief complaint of shortness of breath and edema for 2 weeks. Patient reported that he was apparently doing well until 2 weeks ago on 3.5 L home oxygen when he started to have worsening shortness of breath, orthopnea associated with cough with yellowish phlegm and also complained of edema, associated body aches, fatigue. Patient was initially treated on the floor and then was shifted to the ICU because of worsening respiratory status and initiated on BiPAP and was eventually intubated and put on mechanical ventilation. Past medical history: COPD on 3.5 L oxygen per minute, heart failure with reduced ejection fraction, coronary artery disease, atrial fibrillation on Eliquis, sick sinus syndrome tongue, insulin dependent type 2 diabetes mellitus, obstructive sleep apnea on CPAP, peripheral artery disease Past surgical history: Left radical nephrectomy, dual-chamber pacemaker, right above-knee amputation Social history: Patient is nonambulatory, quit smoking in year 1999 and denies any alcohol or other drug use Home medications: Eliquis 2.5 mg b.i.d., carvedilol 3.125 mg b.i.d., cilostazol 50 mg b.i.d., Lasix 20 mg daily Patient seen and examined at the bedside. Alert and oriented x2 Extubated on 09/30/2024 Now on 2 L oxygen with saturation 93% Good urinary output with a negative balance 270 ml no fever overnight and T-max is 98.0 Patient is on pureed diet Objective vital signs Vital Sign Date Time Temp Pulse Resp B/P (MAP) Pulse Ox O2 Delivery O2 Flow Rate FiO2 10/03/24 17:42 150/81 10/03/24 16:45 71 27 99 10/03/24 16:00 Nasal Cannula* 3 32 10/03/24 12:00 97.9 97.9 Total Intake and Output 10/02/24 10/02/24 10/03/24 15:00 23:00 07:00 Intake Total 75 ml 800 ml 585 ml Output Total 780 ml 950 ml Balance 75 ml 20 ml -365 ml medications Current Medications Medications Dose Ordered Sig/Paramjit Route Start Time Stop Time Status Last Admin Dose Admin Levalbuterol HCl 1.25 mg Q6HR NEB 09/12/24 06:00 10/03/24 11:54 1.25 MG Ipratropium [place] 0.5 mg Q6HR NEB 09/12/24 06:00 10/03/24 11:54 0.5 MG Pantoprazole Sodium 40 mg DAILY IV 09/13/24 10:00 10/03/24 10:07 40 MG Vancomycin HCl 0 ml @ 0 mls/hr UD IV 09/17/24 10:00 Dextrose 50 ml UD PRN IV 09/17/24 11:00 Cancel Acetaminophen 650 mg Q4HP PRN PO 09/19/24 10:00 09/21/24 07:51 650 MG Heparin Sodium (Porcine) 5,000 units Q12HR SC 09/23/24 10:00 10/03/24 10:08 5,000 UNITS Nystatin 1 applic BID TOP 09/24/24 22:00 10/03/24 10:16 1 APPLIC Diagnostic Test (Pha) 1 strip IQ4HR 09/25/24 12:00 10/03/24 16:00 1 STRIP Insulin Human Regular IQ4HR SC 09/25/24 12:00 10/03/24 08:00 6 UNITS Dextrose 50 ml UD PRN IV 09/25/24 09:30 Potassium Chloride 100 ml @ 50 mls/hr Q2H IV 09/26/24 06:15 09/26/24 10:14 UNV Furosemide 20 mg BIDD IV 09/30/24 06:00 10/03/24 17:42 20 MG Prednisone 40 mg DAILY PO 10/03/24 10:00 10/03/24 10:14 40 MG Ceftriaxone Sodium 50 ml @ 100 mls/hr DAILY@09 IV 10/03/24 09:00 10/03/24 10:14 100 MLS/HR Fluconazole 200 mg DAILY PO 10/03/24 10:00 10/03/24 10:14 200 MG Insulin Glargine 30 units DAILY@1000 SC 10/03/24 08:15 10/03/24 10:16 30 UNITS Enteral Nutritional Formula 240 ml BIDWM PO 10/03/24 18:00 Sodium Chloride 1,000 ml @ 75 mls/hr [id number] IV 10/03/24 13:30 10/03/24 13:30 75 MLS/HR Examination Examination Constitutional: Patient is currently alert and oriented x2 and on 2 L oxygen through nasal cannula Gen - no pallor, no icterus, no cyanosis, no clubbing Skin - Patients skin is warm and dry. Skin of the left lower extremity below the knee is mottled with poor blood supply . HEENT - normocephalic, atraumatic, moist mucous membranes. Neck - full ROM, no LAD, JVD could not be assessed Pulmonary - B/L diminished breath sounds, no wheezing, no stridor. cardiovascular - variable S1,S2 heard, no added sounds no murmurs heard. GI - soft abdomen. no hepatospleenomegaly. Bowel sounds normoactive Extremities- right LE AKA with 2+ edema, left LE with mottled appearacne and pulse not palpable except femoral pulsation. Neurological - Alert, oriented x2, sensory intact, upper extremity 5/5, right below-knee amputation. Left lower exrtremity 07/02 laboratory and microbiology Laboratory Tests 10/03/24 03:20 Test 10/03/24 03:20 Range/Units Serum Glucose 320 H 74-106 mg/dL Microbiology Date/Time Source Procedure Growth Status 09/30/24 16:50 Sacrum Gram Stain - Final Resulted 09/30/24 16:50 Sacrum Wound Culture - Preliminary Resulted 09/22/24 15:00 Blood Blood Culture - Final NO GROWTH AFTER 5 DAYS OF INCUBATION. Complete 09/22/24 11:00 Sputum Gram Stain - Final Complete 09/22/24 11:00 Respiratory Culture - Final Presumptive Jessica tropicalis Complete 09/22/24 10:50 Urine - Xavier [place] Urine Culture - Final Complete Labs and/or images reviewed: Labs reviewed by me, Image(s) reviewed by me Problem List/Assessment/Plan Problem List/Assessment/Plan Assessment and plan: Neurology Acute metabolic encephalopathy likely due to hypercapnia - Extubated on 09/30/24 Respiratory Acute on chronic hypercarbic respiratory failure COPD MRSA Pneumonia Severe pulmonary hypertension Obstructive sleep apnea - DuoNebs q.6 hours - sputum culture showing growth of MRSA - repeated culture showing growth of yeast - IV antibiotics vancomycin and ceftriaxone and fluconazole - Prednisone 40 mg po daily Cardiovascular Shock likely due to sepsis resolved Acute on chronic heart failure with a reduced ejection fraction NYHA class 4 Paroxysmal atrial fibrillation , sick sinus syndrome with s/p dual-chamber pacemaker Coronary artery disease (coronary angiogram in 2020) Severe pulmonary hypertension with RV hypokinesis Peripheral artery disease with s/p right above-knee amputation - IV Lasix 20 mg bid - anticoagulation currently on prophylactic heparin Nephrology CASS 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 Acute complicated cystitis Uremia - Hold HD as per nephrology - Good urine output - nephrology on board Infectious disease Septic shock likely due to UTI versus pneumonia UTI growing E coli MRSA pneumonia - on IV cefepime and vancomycin and micafungin Metabolic Hypokalemia and hypernatremia -Replenished Endocrine Type 2 diabetes mellitus with hemoglobin A1c 6.4 - Lantus 25 units at QAM and moderate sliding scale of insulin Gastroenterology S/p diversion colostomy Peripheral line Xavier's catheter placed on 09/12 Diet: Pureed diet PUD prophylaxis: Protonix DVT prophylaxis: heparin Goals of care discussed with the patient's for over 21 minutes. Full Code Critical care time spent excluding procedures: 45 minutes Plan discussed with Plan discussed with: Patient, Spouse, Daughter My Orders My Orders Orders - DIOGO CORTEZ Procedure Category Date Status Time Chest Portable XY 10/03/24 Resulted 04:00 Abg W/ Co-Ox RT 10/03/24 Logged 08:12 Insulin Lantus PHA 10/03/24 In Process (Glargine) (Lantus) 08:15 Nutritional PHA 10/03/24 In Process Supplements (Ensure 18:[address] 10/03/24 Logged 14:49 Dietary Evaluation Review Comments: 1) Matthieu 1 pk daily (ordered per ONS protocol) 2) CCHO 75gm + cardiac 3) Refer Vaccinator on DC 4) Continue current plan of care Expected Outcomes/Goals: To meet >75% estimated needs Fu 3-5 days DIOGO CORTEZ RESIDENT October 03, 2024 18:41
[2024-10-03] MEDS: hydrALAZINE HCL 20 MG/ML VL IV PRN (21:06)
[2024-10-04] VITALS (105 sets, daily range): BP systolic 94–195; BP diastolic 41–86; PULSE 61–89; RESP 10–30; TEMP 97.3–97.8; O2SAT 87–100
--- NOTE | 2024-10-04 01:57 | DVH ---
CT HEAD WITHOUT CONTRAST INDICATION: Confusion COMPARISON: None TECHNIQUE: CT of the head without intravenous contrast. RADIATION DOSE: CTDIvol: mGy, DLP: mGy*cm FINDINGS: There is no evidence of intracranial hemorrhage, acute infarct, extra-axial collection, mass effect, midline shift, herniation or hydrocephalus. 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 Moderate ventricular and sulcal enlargement related to advanc ed cerebral volume loss. Visualized paranasal sinuses and mastoid air cells are clear. Soft tissues a nd osseous structures are unremarkable. IMPRESSION: No acute intracranial abnormality identified.
--- NOTE | 2024-10-04 02:00 | DVH ---
CHEST RADIOGRAPH Indication: Intubated Technique: Single frontal view of the chest was obtained COMPARISON: XY CHEST PORTABLE on DOS: 10/03/24, XY CHEST XRAY 1 VIEW on DOS: 10/02/24, XY CHEST XRAY 1 EW on DOS: 10/01/24, XY CHEST PORTABLE on DOS: 09/30/24, XY CHEST PORTABLE on DOS: 09/30/24 FINDINGS: Lines and Tubes: None Lungs: Stable appearing moderate diffuse prominence of the pulmonary vasculature. Pleura: No effusion. No pneumothorax. Cardiomediastinal contours: Stable cardiomegaly. Bones: Unremarkable IMPRESSION: 1. Stable appearing moderate diffuse prominence of the pulmonary vasculature and cardiomegaly.
[2024-10-04 03:59] LABS: Hematocrit 41.7 % (41.0-53.0); Hemoglobin 13.3 g/dL (13.5-17.5); Mean Corpuscular Hemoglobin 25.1 pg (28.0-32.0); Mean Corpuscular Hgb Conc. 31.8 g/dL (32.0-36.0); Mean Corpuscular Volume 78.8 fL (80.0-100.0); Platelet Count (auto) 141 10^3/uL (140-450); Red Blood Cells 5.29 10^6/uL (4.5-5.90); Red Cell Distribution Width 23.1 % (11.8-14.3); White Blood Cell 13.5 10^3/uL (4.4-10.8)
[2024-10-04 04:10] LABS: Basophils % (manual) 0 (0.0-2.0); Blast Cells 0; Eosinophils % (manual) 0 (0-7); Myelocytes % 0; Promyelocytes % 0; Reactive Lymphocytes 0
[2024-10-04 04:14] LABS: Chloride 99 mmol/L (98-107); Potassium 3.7 mmol/L (3.5-5.1); Sodium 142 mmol/L (136-145)
[2024-10-04 04:15] LABS: Anion Gap 12 (5-15); Calcium 10.2 mg/dL (8.7-10.4); Carbon Dioxide 31 mmol/L (20-31)
[2024-10-04 04:20] LABS: BUN/Creatinine Ratio 38.1 (10.0-20.0)
[2024-10-04 05:11] LABS: Glucose 192 mg/dL (74-106)
[2024-10-04 05:14] LABS: Blood Urea Nitrogen 101 mg/dL (9-23)
[2024-10-04 06:02] LABS: Band Neutrophils % (manual) 2; Lymphocytes % (manual) 3 (10.0-50.0); Metamyelocytes % 1; Monocytes % (manual) 6 (0-12); Platelet Estimate Adequate
--- NOTE | 2024-10-04 09:56 | DVHPN2 ---
Subjective Patient was a 79-year-old male with a past medical history as described below presented to the hospital with a chief complaint of shortness of breath and edema for 2 weeks. Patient reported that he was apparently doing well until 2 weeks ago on 3.5 L home oxygen when he started to have worsening shortness of breath, orthopnea associated with cough with yellowish phlegm and also complained of edema, associated body aches, fatigue. Patient was initially treated on the floor and then was shifted to the ICU because of worsening respiratory status and initiated on BiPAP and was eventually intubated and put on mechanical ventilation. Past medical history: COPD on 3.5 L oxygen per minute, heart failure with reduced ejection fraction, coronary artery disease, atrial fibrillation on Eliquis, sick sinus syndrome tongue, insulin dependent type 2 diabetes mellitus, obstructive sleep apnea on CPAP, peripheral artery disease Past surgical history: Left radical nephrectomy, dual-chamber pacemaker, right above-knee amputation Social history: Patient is nonambulatory, quit smoking in year 1999 and denies any alcohol or other drug use Home medications: Eliquis 2.5 mg b.i.d., carvedilol 3.125 mg b.i.d., cilostazol 50 mg b.i.d., Lasix 20 mg daily Patient seen and examined at the bedside. Alert and oriented x0 Extubated on 09/30/2024 Now on 2 L oxygen 10/04 weekend coverage. Patient's AG still cath was removed extubated doing well blood pressure high systolic 160s. Patient is arousable but he does not communicate. A&O times 0. Labs are stable BUN remains elevated around 100. Concern for uremic encephalopathy, likely needs to restart dialysis, defer to Nephrology. CT head done yesterday with no acute intracranial abnormalities. Reviewed: H&P Changes from previous H/P or p: No Changes General: Per HPI Objective Vitals Vital Signs Date Time Temp Pulse Resp B/P (MAP) Pulse Ox O2 Delivery O2 Flow Rate FiO2 10/04/24 07:11 66 23 100 10/04/24 06:45 135/65 (88) 10/04/24 06:00 Nasal Cannula* 2 28 10/04/24 04:00 97.3 97.3 Intake/Output Intake and Output 10/04/24 07:00 Intake Total 1520 ml Output Total 1970 ml Balance -450 ml Intake Oral 220 ml IV Total 1300 ml Output Urine Total 1950 ml Stool Total 20 ml Exam Constitutional: Patient is currently alert and oriented x2 and on 2 L oxygen through nasal cannula Gen - no pallor, no icterus, no cyanosis, no clubbing Skin - Patients skin is warm and dry. Skin of the left lower extremity below the knee is mottled with poor blood supply . HEENT - normocephalic, atraumatic, moist mucous membranes. Neck - full ROM, no LAD, JVD could not be assessed Pulmonary - B/L diminished breath sounds, no wheezing, no stridor. cardiovascular - variable S1,S2 heard, no added sounds no murmurs heard. GI - soft abdomen. no hepatospleenomegaly. Bowel sounds normoactive Extremities- right LE AKA with 2+ edema, left LE with mottled appearacne and pulse not palpable except femoral pulsation. Neurological - Alert, oriented x2, sensory intact, upper extremity 5/5, right below-knee amputation. Left lower exrtremity 2/5 General Appearance: Other (intubated) Lungs: Clear to auscultation Cardiovascular: Regular rate, Normal S1, Normal S2 Abdomen: Normal bowel sounds Medications Current Medications Medications Dose Ordered Sig/Paramjit Route Start Time Stop Time Status Last Admin Dose Admin Levalbuterol HCl 1.25 mg Q6HR NEB 09/12/24 06:00 10/04/24 07:00 1.25 MG Ipratropium [place] 0.5 mg Q6HR NEB 09/12/24 06:00 10/04/24 07:00 0.5 MG Pantoprazole Sodium 40 mg DAILY IV 09/13/24 10:00 10/03/24 10:07 40 MG Dextrose 50 ml UD PRN IV 09/17/24 11:00 Cancel Acetaminophen 650 mg Q4HP PRN PO 09/19/24 10:00 09/21/24 07:51 650 MG Heparin Sodium (Porcine) 5,000 units Q12HR SC 09/23/24 10:00 10/03/24 21:07 5,000 UNITS Nystatin 1 applic BID TOP 09/24/24 22:00 10/03/24 21:06 1 APPLIC Diagnostic Test (Pha) 1 strip IQ4HR 09/25/24 12:00 10/04/24 08:00 1 STRIP Insulin Human Regular IQ4HR SC 09/25/24 12:00 10/04/24 09:19 3 UNITS Dextrose 50 ml UD PRN IV 09/25/24 09:30 Potassium Chloride 100 ml @ 50 mls/hr Q2H IV 09/26/24 06:15 09/26/24 10:14 UNV Furosemide 20 mg BIDD IV 09/30/24 06:00 10/04/24 05:26 20 MG Prednisone 40 mg DAILY PO 10/03/24 10:00 10/03/24 10:14 40 MG Ceftriaxone Sodium 50 ml @ 100 mls/hr DAILY@09 IV 10/03/24 09:00 10/04/24 09:14 100 MLS/HR Fluconazole 200 mg DAILY PO 10/03/24 10:00 10/03/24 10:14 200 MG Insulin Glargine 30 units DAILY@1000 SC 10/03/24 08:15 10/03/24 10:16 30 UNITS Enteral Nutritional Formula 240 ml BIDWM PO 10/03/24 18:00 Sodium Chloride 1,000 ml @ 75 mls/hr [id number] IV 10/03/24 13:30 10/04/24 03:14 75 MLS/HR Hydralazine HCl 10 mg Q6HP PRN IV 10/03/24 19:15 10/03/24 21:06 10 MG Dopamine HCl/ Dextrose 250 ml @ 6.48 mls/hr Q24H IV 10/04/24 09:45 Laboratory Results Laboratory Tests 10/04/24 03:08 Chemistry Test 10/04/24 03:08 Calcium Level 10.2 mg/dL (8.7-10.4) Urinalysis Test 09/11/24 23:15 09/14/24 22:12 09/15/24 13:45 10/03/24 17:45 Urine Protein/Creatinine Ratio 0.31 Urine Total Protein 87.7 mg/dL (1-14) H Urine Creatinine 141.86 mg/dL (30.0-125.0) H Urine Sodium 11 mmol/L (40-220) L Urine Color Light-yellow (Yellow) Urine Clarity Clear (Clear) Urine pH 6.0 (5.0-9.0) Urine Specific [place] 1.011 (1.001-1.035) Urine Protein 1+ (Negative) H Urine Ketones Negative (Negative) Urine Blood 3+ /uL (Negative) H Urine Nitrite Negative (Negative) Urine Bilirubin Negative (Negative) Urine Urobilinogen Normal mg/dL (Negative) Urine Leukocyte Esterase Negative /uL (Negative) Urine RBC 23 /hpf (0 - 3) Urine Microscopic WBC 5 /HPF (0-3) H Urine Squamous Epithelial Cells Few /hpf (<5) Urine Bacteria None seen /hpf (None Seen) Urine Hyaline Casts Few /lpf (0 - 2) Urine Mucus Few (None Seen) Urine Glucose Normal mg/dL (Normal) Microbiology Microbiology Date/Time Source Procedure Growth Status 09/30/24 16:50 Sacrum Gram Stain - Final Resulted 09/30/24 16:50 Sacrum Wound Culture - Preliminary Resulted 09/22/24 15:00 Blood Blood Culture - Final NO GROWTH AFTER 5 DAYS OF INCUBATION. Complete 09/22/24 11:00 Sputum Gram Stain - Final Complete 09/22/24 11:00 Respiratory Culture - Final Presumptive Jessica tropicalis Complete 09/22/24 10:50 Urine - Xavier Port Urine Culture - Final Complete Labs and/or images reviewed: Labs reviewed by me, Image(s) reviewed by me Assessment/Plan Assessment/Plan update 10/04 weekend coverage. Patient's AG still cath was removed extubated doing well blood pressure high systolic 160s. Patient is arousable but he does not communicate. A&O times 0. Labs are stable BUN remains elevated around 100. Concern for uremic encephalopathy, likely needs to restart dialysis, defer to Nephrology. CT head done yesterday with no acute intracranial abnormalities. Neurology Acute metabolic encephalopathy likely due to hypercapnia - Extubated on 09/30/24 Respiratory Acute on chronic hypercarbic respiratory failure COPD MRSA Pneumonia Severe pulmonary hypertension Obstructive sleep apnea - DuoNebs q.6 hours - sputum culture showing growth of MRSA - repeated culture showing growth of yeast - IV antibiotics vancomycin and ceftriaxone and fluconazole - Prednisone 40 mg po daily Cardiovascular Shock likely due to sepsis resolved Acute on chronic heart failure with a reduced ejection fraction NYHA class 4 Paroxysmal atrial fibrillation , sick sinus syndrome with s/p dual-chamber pacemaker Coronary artery disease (coronary angiogram in 2020) Severe pulmonary hypertension with RV hypokinesis Peripheral artery disease with s/p right above-knee amputation - IV Lasix 20 mg bid - anticoagulation currently on prophylactic heparin Nephrology CASS 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 Acute complicated cystitis Uremia - Hold HD as per nephrology - Good urine output - nephrology on board Infectious disease Septic shock likely due to UTI versus pneumonia UTI growing E coli MRSA pneumonia - on IV cefepime and vancomycin and micafungin Metabolic Hypokalemia and hypernatremia -Replenished Endocrine Type 2 diabetes mellitus with hemoglobin A1c 6.4 - Lantus 25 units at QAM and moderate sliding scale of insulin Gastroenterology S/p diversion colostomy Peripheral line Xavier's catheter placed on 09/12 Diet: Pureed diet PUD prophylaxis: Protonix DVT prophylaxis: heparin Plan discussed with: Patient Date of Service: October 04, 2024 Billing Provider: YOLANDA ROBERTS MD Common Visit Codes: [id number] CARE 30-74 MIN YOLANDA ROBERTS MD October 04, 2024 09:56
[2024-10-04] MEDS: DOPamine 1600MCG/ML D5W 250 ML IV SCH (11:37)
--- NOTE | 2024-10-04 11:38 | DVHPN2 ---
Progress Note Date Seen: October 04, 2024 Has the PT tested + for MRSA If YES, has PT been informed?: No Medical Necessity Reason Pt with a Central, PICC or Fol: Yes The following are medically ne: Central Line, Xavier Catheter Subjective Patient reports: No new complaints Other Systems: Patient seen and examined by myself today in follow-up Objective vital signs Vital Sign Date Time Temp Pulse Resp B/P (MAP) Pulse Ox O2 Delivery O2 Flow Rate FiO2 10/04/24 11:00 63 30 172/81 (111) 96 10/04/24 08:00 97.6 97.6 10/04/24 06:00 Nasal Cannula* 2 28 Total Intake and Output 10/03/24 10/03/24 10/04/24 15:00 23:00 07:00 Intake Total 295 ml 700 ml 525 ml Output Total 1010 ml 960 ml Balance 295 ml -310 ml -435 ml medications Current Medications Medications Dose Ordered Sig/Paramjit Route Start Time Stop Time Status Last Admin Dose Admin Levalbuterol HCl 1.25 mg Q6HR NEB 09/12/24 06:00 10/04/24 07:00 1.25 MG Ipratropium [place] 0.5 mg Q6HR NEB 09/12/24 06:00 10/04/24 07:00 0.5 MG Pantoprazole Sodium 40 mg DAILY IV 09/13/24 10:00 10/04/24 11:01 40 MG Dextrose 50 ml UD PRN IV 09/17/24 11:00 Cancel Acetaminophen 650 mg Q4HP PRN PO 09/19/24 10:00 09/21/24 07:51 650 MG Heparin Sodium (Porcine) 5,000 units Q12HR SC 09/23/24 10:00 10/04/24 10:54 5,000 UNITS Nystatin 1 applic BID TOP 09/24/24 22:00 10/04/24 11:01 1 APPLIC Diagnostic Test (Pha) 1 strip IQ4HR 09/25/24 12:00 10/04/24 08:00 1 STRIP Insulin Human Regular IQ4HR SC 09/25/24 12:00 10/04/24 09:19 3 UNITS Dextrose 50 ml UD PRN IV 09/25/24 09:30 Potassium Chloride 100 ml @ 50 mls/hr Q2H IV 09/26/24 06:15 09/26/24 10:14 UNV Furosemide 20 mg BIDD IV 09/30/24 06:00 10/04/24 05:26 20 MG Prednisone 40 mg DAILY PO 10/03/24 10:00 10/03/24 10:14 40 MG Ceftriaxone Sodium 50 ml @ 100 mls/hr DAILY@09 IV 10/03/24 09:00 10/04/24 09:14 100 MLS/HR Fluconazole 200 mg DAILY PO 10/03/24 10:00 10/03/24 10:14 200 MG Insulin Glargine 30 units DAILY@1000 SC 10/03/24 08:15 10/04/24 11:00 30 UNITS Enteral Nutritional Formula 240 ml BIDWM PO 10/03/24 18:00 Sodium Chloride 1,000 ml @ 75 mls/hr [id number] IV 10/03/24 13:30 10/04/24 03:14 75 MLS/HR Dopamine HCl/ Dextrose 250 ml @ 6.48 mls/hr Q24H IV 10/04/24 09:45 Hydralazine HCl 20 mg Q4HPRN PRN IV 10/04/24 11:30 Examination: LUNGS:Normal, CVS:Normal, MSK:Normal laboratory and microbiology Laboratory Tests 10/04/24 03:08 Test 10/04/24 03:08 Range/Units Serum Glucose 192 #H 74-106 mg/dL Microbiology Date/Time Source Procedure Growth Status 09/30/24 16:50 Sacrum Gram Stain - Final Resulted 09/30/24 16:50 Sacrum Wound Culture - Preliminary Resulted 09/22/24 15:00 Blood Blood Culture - Final NO GROWTH AFTER 5 DAYS OF INCUBATION. 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 History of left nephrectomy Acute hypoxic respiratory failure on mechanical ventilator Acute on chronic systolic heart failure (HFrEF 40%) Status post right BKA Recommendations Kidney function slightly improved Increased urine output Xavier catheter Strict I&Os Low-dose dopamine Insulin sliding scale We will continue to follow Plan discussed with: Other (Nurse) My Orders My Orders Orders - LI PRIETO MD Procedure Category Date Status Time Dopamine 1600mcg/Ml PHA 10/04/24 In Process D5W 09:45 Hydralazine Injection PHA 10/04/24 In Process (Apresoline Inject 11:30 Dietary Evaluation Review Comments: 1) Matthieu 1 pk daily (ordered per ONS protocol) 2) CCHO 75gm + cardiac 3) Refer Tableau Administrator on DC 4) Continue current plan of care Expected Outcomes/Goals: To meet >75% estimated needs Fu 3-5 days LI PRIETO MD October 04, 2024 11:38
[2024-10-04] MEDS: hydrALAZINE HCL 20 MG/ML VL IV PRN (12:02)
[2024-10-04 12:58] LABS: Base Excess 4.6 mmol/L (-2.0-3.0)
--- NOTE | 2024-10-04 22:59 | DVHPN2 ---
Progress Note - Dictate Date Seen: October 04, 2024 Has the PT tested + for MRSA If YES, has PT been informed?: No Medical Necessity Reason Pt with a Central, PICC or Fol: Yes The following are medically ne: Central Line, Mallory Catheter Reason for mallory catheter: Strict I&O Subjective Patient seen and examined at bedside. Remains on supplemental oxygen Overnight events reviewed. vital signs Vital Sign Date Time Temp Pulse Resp B/P (MAP) Pulse Ox O2 Delivery O2 Flow Rate FiO2 10/04/24 22:15 68 29 106/52 (70) 97 10/04/24 22:00 Nasal Cannula* 2 28 10/04/24 20:00 97.7 97.7 Total Intake and Output 10/03/24 10/03/24 10/04/24 15:00 23:00 07:00 Intake Total 295 ml 700 ml 600 ml Output Total 1010 ml 960 ml Balance 295 ml -310 ml -360 ml medications Current Medications Medications Dose Ordered Sig/Paramjit Route Start Time Stop Time Status Last Admin Dose Admin Levalbuterol HCl 1.25 mg Q6HR NEB 09/12/24 06:00 10/04/24 18:14 1.25 MG Ipratropium [place] 0.5 mg Q6HR NEB 09/12/24 06:00 10/04/24 18:14 0.5 MG Pantoprazole Sodium 40 mg DAILY IV 09/13/24 10:00 10/04/24 11:01 40 MG Dextrose 50 ml UD PRN IV 09/17/24 11:00 Cancel Acetaminophen 650 mg Q4HP PRN PO 09/19/24 10:00 09/21/24 07:51 650 MG Heparin Sodium (Porcine) 5,000 units Q12HR SC 09/23/24 10:00 10/04/24 21:55 5,000 UNITS Nystatin 1 applic BID TOP 09/24/24 22:00 10/04/24 21:54 1 APPLIC Diagnostic Test (Pha) 1 strip IQ4HR 09/25/24 12:00 10/04/24 20:26 1 STRIP Insulin Human Regular IQ4HR SC 09/25/24 12:00 10/04/24 16:38 6 UNITS Dextrose 50 ml UD PRN IV 09/25/24 09:30 Potassium Chloride 100 ml @ 50 mls/hr Q2H IV 09/26/24 06:15 09/26/24 10:14 UNV Furosemide 20 mg BIDD IV 09/30/24 06:00 10/04/24 18:09 20 MG Prednisone 40 mg DAILY PO 10/03/24 10:00 10/03/24 10:14 40 MG Ceftriaxone Sodium 50 ml @ 100 mls/hr DAILY@09 IV 10/03/24 09:00 10/04/24 09:14 100 MLS/HR Fluconazole 200 mg DAILY PO 10/03/24 10:00 10/03/24 10:14 200 MG Insulin Glargine 30 units DAILY@1000 SC 10/03/24 08:15 10/04/24 11:00 30 UNITS Enteral Nutritional Formula 240 ml BIDWM PO 10/03/24 18:00 Sodium Chloride 1,000 ml @ 75 mls/hr [id number] IV 10/03/24 13:30 10/04/24 18:10 75 MLS/HR Dopamine HCl/ Dextrose 250 ml @ 6.48 mls/hr Q24H IV 10/04/24 09:45 10/04/24 11:40 6.48 MLS/HR Hydralazine HCl 20 mg Q4HPRN PRN IV 10/04/24 11:30 10/04/24 12:02 20 MG objective Gen.: Patient lying in bed in no apparent distress. On supplemental oxygen. Head: Normocephalic, atraumatic. Eyes: EOMI/PERRLA. Ears: Normal hearing. Normal anatomy. Neck/trachea: Trachea midline, supple. Nose: Normal external anatomy. Mouth: Moist mucous membranes. Chest: Decreased air entry bilaterally. No wheezing or rhonchi. Cardiovascular: Positive S1, positive S2. Regular rate and rhythm. Abdomen: Positive bowel sounds in all 4 quadrants. Soft, non-tender, non- distended. : Deferred. Rectal: Deferred. Skin: Warm, dry. Intact. Extremities: 2+ radial pulses bilaterally. No lower extremity edema. Neuro: Awake, alert, oriented x3. No gross motor or sensory deficits. Cranial nerves II through XII intact. Gait not assessed. laboratory and microbiology Laboratory Tests 10/04/24 03:08 Test 10/04/24 03:08 Range/Units Serum Glucose 192 #H 74-106 mg/dL Assessment/Plan Impression: Acute hypoxemic respiratory failure Pneumonia Congestive heart failure Acute kidney injury Events: Currently on supplemental oxygen On 2 LPM NC Taper O2 as tolerated On pressors for hemodynamic support Dopamine drip 2 mcg/min Titrate to keep mean arterial pressure greater than 65 mmHg. Continue bronchodilators. Continue antibiotics. Diurese with Lasix Monitor renal function Monitor electrolytes. Supplement as necessary. Monitor ins and outs. ABG reviewed, alkalemia d/t metabolic alkalosis CXR reviewed, demonstrates moderate diffuse pulmonary vascular congestion. Labs and imaging reviewed Plan: Supplemental oxygen Titrate to keep O2 sats above 92%. Continue bronchodilators. Continue antibiotics On dopamine drip Titrate to keep MAP above 65 mmHg Monitor renal function Monitor electrolytes. Supplement as necessary. Monitor ins and outs Nutrition DVT/GI prophylaxis Full code Prognosis: Poor given patient's multiple co-morbidities. Condition: Critical Rest of plan per hospitalist and other consultants. A total of 35 minutes of critical care time was spent reviewing the patient record, examining the patient, making a diagnostic and therapeutic plan, discussing this plan with the medical personnel, following up on diagnostic studies and following the patient for clinical stability excluding any and all procedures. At least 50% of this time was spent in direct, [id number] contact. Thank you for allowing me to participate in this patient's care. Further recommendations will depend on the patient's clinical course. Please do not hesitate to contact me if you have any questions or concerns. This medical document was created using an electronic medical record system with [employer] dictation system. Although these documentations are being carefully reviewed, there may still be some phonetic and typographical changes. The errors are purely typographical, due to imperfection on the software program, and do not reflect any compromise in the patient's medical care. Dietary Evaluation Review Comments: 1) Matthieu 1 pk daily (ordered per ONS protocol) 2) CCHO 75gm + cardiac 3) Refer Hydro Station Operator on DC 4) Continue current plan of care Expected Outcomes/Goals: To meet >75% estimated needs Fu 3-5 days Plan discussed with: Other (CHUCKIE Davis) Critical Care Time(min): 35 CAR SILVA MD October 04, 2024 22:59
--- NOTE | 2024-10-04 23:59 | DVHPN2 ---
Progress Note - Dictate Date Seen: October 04, 2024 Has the PT tested + for MRSA If YES, has PT been informed?: No Medical Necessity Reason Pt with a Central, PICC or Fol: Yes The following are medically ne: Central Line, Xavier Catheter Subjective Patient was seen and evaluated in follow up in the ICU. Patient is arousable but does not communicate with nursing staff. Patient is on 2 LPM NC. WBC 13.5, BUN 101, SUPERVISOR QUALITY CONTROL 2.65. Chest x-ray shows stable appearing moderate diffuse prominence of the pulmonary vasculature and cardiomegaly. vital signs Vital Sign Date Time Temp Pulse Resp B/P (MAP) Pulse Ox O2 Delivery O2 Flow Rate FiO2 10/04/24 12:45 88 26 102/41 (61) 94 10/04/24 08:00 Nasal Cannula* 2 28 10/04/24 08:00 97.6 97.6 Total Intake and Output 10/03/24 10/03/24 10/04/24 15:00 23:00 07:00 Intake Total 295 ml 700 ml 600 ml Output Total 1010 ml 960 ml Balance 295 ml -310 ml -360 ml medications Current Medications Medications Dose Ordered Sig/Paramjit Route Start Time Stop Time Status Last Admin Dose Admin Levalbuterol HCl 1.25 mg Q6HR NEB 09/12/24 06:00 10/04/24 11:50 1.25 MG Ipratropium [place] 0.5 mg Q6HR NEB 09/12/24 06:00 10/04/24 11:50 0.5 MG Pantoprazole Sodium 40 mg DAILY IV 09/13/24 10:00 10/04/24 11:01 40 MG Dextrose 50 ml UD PRN IV 09/17/24 11:00 Cancel Acetaminophen 650 mg Q4HP PRN PO 09/19/24 10:00 09/21/24 07:51 650 MG Heparin Sodium (Porcine) 5,000 units Q12HR SC 09/23/24 10:00 10/04/24 10:54 5,000 UNITS Nystatin 1 applic BID TOP 09/24/24 22:00 10/04/24 11:01 1 APPLIC Diagnostic Test (Pha) 1 strip IQ4HR 09/25/24 12:00 10/04/24 12:02 1 STRIP Insulin Human Regular IQ4HR SC 09/25/24 12:00 10/04/24 12:06 3 UNITS Dextrose 50 ml UD PRN IV 09/25/24 09:30 Potassium Chloride 100 ml @ 50 mls/hr Q2H IV 09/26/24 06:15 09/26/24 10:14 UNV Furosemide 20 mg BIDD IV 09/30/24 06:00 10/04/24 05:26 20 MG Prednisone 40 mg DAILY PO 10/03/24 10:00 10/03/24 10:14 40 MG Ceftriaxone Sodium 50 ml @ 100 mls/hr DAILY@09 IV 10/03/24 09:00 10/04/24 09:14 100 MLS/HR Fluconazole 200 mg DAILY PO 10/03/24 10:00 10/03/24 10:14 200 MG Insulin Glargine 30 units DAILY@1000 SC 10/03/24 08:15 10/04/24 11:00 30 UNITS Enteral Nutritional Formula 240 ml BIDWM PO 10/03/24 18:00 Sodium Chloride 1,000 ml @ 75 mls/hr [id number] IV 10/03/24 13:30 10/04/24 03:14 75 MLS/HR Dopamine HCl/ Dextrose 250 ml @ 6.48 mls/hr Q24H IV 10/04/24 09:45 10/04/24 11:40 6.48 MLS/HR Hydralazine HCl 20 mg Q4HPRN PRN IV 10/04/24 11:30 10/04/24 12:02 20 MG objective GENERAL: Alert and oriented x 2. No acute distress. EYES: PERRL, EOMI. Anicteric. HENT: Moist mucous membranes. LUNGS: breath sounds. CARDIOVASCULAR: Regular rate and rhythm. ABDOMEN: Soft, nontender and nondistended. Colostomy bag to the right-sided abdomen. EXTREMITIES: Right AKA. SKIN: Warm, dry. laboratory and microbiology Laboratory Tests 10/04/24 03:08 Test 10/04/24 03:08 Range/Units Serum Glucose 192 #H 74-106 mg/dL Problem List Acute on chronic hypoxic respiratory failure secondary to probable CHF exacerbation. Acute on chronic Moderately reduced congestive heart failure exacerbation-NYHA class 4. Pneumonia. AFib, rate controlled on Eliquis. COPD on 3 L home oxygen. Mild coronary artery disease. Sick sinus syndrome status post dual-chamber Biotronik pacemaker 2015. Obstructive apnea on CPAP. Acute cystitis. Diabetes mellitus type 2-A1c 6.4. ? CASS on CKD. Left-sided hydrocele. Anemia likely iron-deficiency. Secondary hypercoagulable state. History of left breast cancer status post surgery and tamoxifen therapy 2007. History of laparoscopic left radical nephrectomy 2013. History of colostomy 2019. Stage I decubitus sacral ulcer. Tunnel hemorrhoids. Diverticulosis. Assessment/Plan Continued all current supportive medical care. IV antibiotics as ordered. Diuretics with Lasix. GI prophylactics. Additional plan as per the hospital course. Critical care time of 45 minutes provided to include time spent evaluation of patient at bedside, when appropriate patient/family education for diagnosis, treatment plan, review of pertinent medical information and discussion of care with specialty providers and PCP. Dietary Evaluation Review Comments: 1) Matthieu 1 pk daily (ordered per ONS protocol) 2) CCHO 75gm + cardiac 3) Refer Pharmacy Services Representative on DC 4) Continue current plan of care Expected Outcomes/Goals: To meet >75% estimated needs Fu 3-5 days Plan discussed with: Patient EVERTON SHELDON MD October 04, 2024 13:13
[2024-10-05] VITALS (102 sets, daily range): BP systolic 86–147; BP diastolic 36–83; PULSE 64–86; RESP 10–32; TEMP 97.4–98; O2SAT 86–100
[2024-10-05 04:13] LABS: Chloride 99 mmol/L (98-107); Potassium 3.7 mmol/L (3.5-5.1); Sodium 140 mmol/L (136-145)
[2024-10-05 04:14] LABS: Anion Gap 14 (5-15); Calcium 10.1 mg/dL (8.7-10.4); Carbon Dioxide 27 mmol/L (20-31)
[2024-10-05 04:19] LABS: BUN/Creatinine Ratio 37.7 (10.0-20.0); Glucose 94 mg/dL (74-106)
[2024-10-05 04:34] LABS: Hematocrit 46.3 % (41.0-53.0); Hemoglobin 14.6 g/dL (13.5-17.5); Mean Corpuscular Hemoglobin 24.7 pg (28.0-32.0); Mean Corpuscular Hgb Conc. 31.4 g/dL (32.0-36.0); Mean Corpuscular Volume 78.5 fL (80.0-100.0); Platelet Count (auto) 131 10^3/uL (140-450)
[2024-10-05 04:37] LABS: Basophils % (manual) 0 (0.0-2.0); Blast Cells 0; Eosinophils % (manual) 0 (0-7); Metamyelocytes % 0; Promyelocytes % 0; Reactive Lymphocytes 0
[2024-10-05 04:39] LABS: Blood Urea Nitrogen 97 mg/dL (9-23)
[2024-10-05 05:24] LABS: Anisocytosis Slight; Band Neutrophils % (manual) 6; Lymphocytes % (manual) 7 (10.0-50.0); Monocytes % (manual) 4 (0-12); Myelocytes % 1; Platelet Estimate Decreased
[2024-10-05 05:26] LABS: Hypochromia Slight
--- NOTE | 2024-10-05 06:51 | DVH ---
CHEST RADIOGRAPH Indication: Intubated Technique: Single frontal view of the chest was obtained Comparison: XY CHEST XRAY 1 VIEW on DOS: 10/04/24, XY CHEST PORTABLE on DOS: 10/03/24, XY CHEST XRAY 1 V IEW on DOS: 10/02/24, XY CHEST XRAY 1 VIEW on DOS: 10/01/24, XY CHEST PORTABLE on DOS: 09/30/24, XY CHEST X RAY 1 VIEW on DOS: 10/04/24 FINDINGS: Lines and Tubes: None Lungs: Stable appearing moderate diffuse prominence of the pulmonary vasculature. Pleura: No effusion. No pneumothorax. Cardiomediastinal contours: Stable cardiomegaly. Bones: Unremarkable IMPRESSION: 1. Stable appearing moderate diffuse prominence of the pulmonary vasculature and cardiomegaly.
--- NOTE | 2024-10-05 08:59 | DVHPN2 ---
Progress Note Date Seen: October 05, 2024 Has the PT tested + for MRSA If YES, has PT been informed?: No Medical Necessity Reason Pt with a Central, PICC or Fol: Yes The following are medically ne: Central Line, Mallory Catheter Reason for mallory catheter: Strict I&O Subjective Patient reports: No new complaints Other Systems: Patient seen and examined by myself today in follow-up Objective vital signs Vital Sign Date Time Temp Pulse Resp B/P (MAP) Pulse Ox O2 Delivery O2 Flow Rate FiO2 10/05/24 07:15 69 20 94/42 (59) 98 10/05/24 06:25 Nasal Cannula 2.0 10/05/24 06:25 28 10/05/24 04:00 97.5 97.5 Total Intake and Output 10/04/24 10/04/24 10/05/24 15:00 23:00 07:00 Intake Total 725.92 ml 656.84 ml 651.84 ml Output Total 1050 ml 400 ml Balance 725.92 ml -393.16 ml 251.84 ml medications Current Medications Medications Dose Ordered Sig/Paramjit Route Start Time Stop Time Status Last Admin Dose Admin Levalbuterol HCl 1.25 mg Q6HR NEB 09/12/24 06:00 10/05/24 06:25 1.25 MG Ipratropium [place] 0.5 mg Q6HR NEB 09/12/24 06:00 10/05/24 06:25 0.5 MG Pantoprazole Sodium 40 mg DAILY IV 09/13/24 10:00 10/04/24 11:01 40 MG Dextrose 50 ml UD PRN IV 09/17/24 11:00 Cancel Acetaminophen 650 mg Q4HP PRN PO 09/19/24 10:00 09/21/24 07:51 650 MG Heparin Sodium (Porcine) 5,000 units Q12HR SC 09/23/24 10:00 10/04/24 21:55 5,000 UNITS Nystatin 1 applic BID TOP 09/24/24 22:00 10/04/24 21:54 1 APPLIC Diagnostic Test (Pha) 1 strip IQ4HR 09/25/24 12:00 10/05/24 08:16 1 STRIP Insulin Human Regular IQ4HR SC 09/25/24 12:00 10/04/24 16:38 6 UNITS Dextrose 50 ml UD PRN IV 09/25/24 09:30 Potassium Chloride 100 ml @ 50 mls/hr Q2H IV 09/26/24 06:15 09/26/24 10:14 UNV Furosemide 20 mg BIDD IV 09/30/24 06:00 10/05/24 06:17 20 MG Prednisone 40 mg DAILY PO 10/03/24 10:00 10/03/24 10:14 40 MG Ceftriaxone Sodium 50 ml @ 100 mls/hr DAILY@09 IV 10/03/24 09:00 10/04/24 09:14 100 MLS/HR Fluconazole 200 mg DAILY PO 10/03/24 10:00 10/03/24 10:14 200 MG Insulin Glargine 30 units DAILY@1000 SC 10/03/24 08:15 10/04/24 11:00 30 UNITS Enteral Nutritional Formula 240 ml BIDWM PO 10/03/24 18:00 Sodium Chloride 1,000 ml @ 75 mls/hr [id number] IV 10/03/24 13:30 10/05/24 08:51 75 MLS/HR Dopamine HCl/ Dextrose 250 ml @ 6.48 mls/hr Q24H IV 10/04/24 09:45 10/04/24 11:40 6.48 MLS/HR Hydralazine HCl 20 mg Q4HPRN PRN IV 10/04/24 11:30 10/04/24 12:02 20 MG Examination: LUNGS:Normal, CVS:Normal, MSK:Normal, NEURO:Abnormal laboratory and microbiology Laboratory Tests 10/05/24 03:30 Test 10/05/24 03:30 Range/Units Serum Glucose 94 74-106 mg/dL Microbiology Date/Time Source Procedure Growth Status 09/30/24 16:50 Sacrum Gram Stain - Final Complete 09/30/24 16:50 Wound Culture - Final Enterococcus faecalis Complete 09/22/24 15:00 Blood Blood Culture - Final NO GROWTH AFTER 5 DAYS OF INCUBATION. 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 History of left nephrectomy Acute on chronic systolic heart failure (HFrEF 40%) Right BKA Recommendations Kidney function slightly improved Increased urine output Mallory catheter Strict I&Os Low-dose dopamine KCL IV fluid Insulin sliding scale We will continue to follow Plan discussed with: Other (Nurse) My Orders My Orders Orders - LI PRIETO MD Procedure Category Date Status Time Dopamine 1600mcg/Ml PHA 10/04/24 In Process D5W 09:45 Hydralazine Injection PHA 10/04/24 In Process (Apresoline Inject 11:30 Communication Order ORDERS 10/04/24 Transmitted 11:40 Dietary Evaluation Review Comments: 1) Matthieu 1 pk daily (ordered per ONS protocol) 2) CCHO 75gm + cardiac 3) Refer Senior Linux Unix Engineer on DC 4) Continue current plan of care Expected Outcomes/Goals: To meet >75% estimated needs Fu 3-5 days LI PRIETO MD October 05, 2024 08:59
--- NOTE | 2024-10-05 11:07 | DVHPN2 ---
Subjective Patient was a 79-year-old male with a past medical history as described below presented to the hospital with a chief complaint of shortness of breath and edema for 2 weeks. Patient reported that he was apparently doing well until 2 weeks ago on 3.5 L home oxygen when he started to have worsening shortness of breath, orthopnea associated with cough with yellowish phlegm and also complained of edema, associated body aches, fatigue. Patient was initially treated on the floor and then was shifted to the ICU because of worsening respiratory status and initiated on BiPAP and was eventually intubated and put on mechanical ventilation. Past medical history: COPD on 3.5 L oxygen per minute, heart failure with reduced ejection fraction, coronary artery disease, atrial fibrillation on Eliquis, sick sinus syndrome tongue, insulin dependent type 2 diabetes mellitus, obstructive sleep apnea on CPAP, peripheral artery disease Past surgical history: Left radical nephrectomy, dual-chamber pacemaker, right above-knee amputation Social history: Patient is nonambulatory, quit smoking in year 1999 and denies any alcohol or other drug use Home medications: Eliquis 2.5 mg b.i.d., carvedilol 3.125 mg b.i.d., cilostazol 50 mg b.i.d., Lasix 20 mg daily Patient seen and examined at the bedside. Alert and oriented x0 Extubated on 09/30/2024 Now on 2 L oxygen 10/04 weekend coverage. Patient's AG still cath was removed extubated doing well blood pressure high systolic 160s. Patient is arousable but he does not communicate. A&O times 0. Labs are stable BUN remains elevated around 100. Concern for uremic encephalopathy, likely needs to restart dialysis, defer to Nephrology. CT head done yesterday with no acute intracranial abnormalities. 10/05 patient is arousable to verbal and tactile stimuli. But A&O x1 only. Patient has decreased arousal and Elaine somnolent and RN is holding p.o. meds for concern for aspiration. Also holding off BiPAP/CPAP for same reason. ABG mild increased pCO2 but not in danger range. Nephrology following BUN remains elevated mild decrease but no significant change. Nephrology is trying dopamine drip. Cefepime can make patient confused and we will have to deescalate. Making good urine output. He has had minimal p.o. intake so start PPN until mentation improves. We will try to switch p.o. meds to IV as best as possible (most meds are IV we will make fluconazole IV and he can hold prednisone p.o.) Reviewed: H&P Changes from previous H/P or p: No Changes General: Per HPI Objective Vitals Vital Signs Date Time Temp Pulse Resp B/P (MAP) Pulse Ox O2 Delivery O2 Flow Rate FiO2 10/05/24 10:00 97 Nasal Cannula 2.0 10/05/24 09:45 69 15 106/55 (72) 10/05/24 08:00 28 10/05/24 04:00 97.5 97.5 Intake/Output Intake and Output 10/05/24 07:00 Intake Total 2034.60 ml Output Total 1450 ml Balance 584.60 ml Intake Oral 5 ml IV Total 2029.60 ml Output Urine Total 1450 ml Exam Constitutional: Patient is currently alert and oriented x2 and on 2 L oxygen through nasal cannula Gen - no pallor, no icterus, no cyanosis, no clubbing Skin - Patients skin is warm and dry. Skin of the left lower extremity below the knee is mottled with poor blood supply . HEENT - normocephalic, atraumatic, moist mucous membranes. Neck - full ROM, no LAD, JVD could not be assessed Pulmonary - B/L diminished breath sounds, no wheezing, no stridor. cardiovascular - variable S1,S2 heard, no added sounds no murmurs heard. GI - soft abdomen. no hepatospleenomegaly. Bowel sounds normoactive Extremities- right LE AKA with 2+ edema, left LE with mottled appearacne and pulse not palpable except femoral pulsation. Neurological - Alert, oriented x2, sensory intact, upper extremity 5/5, right below-knee amputation. Left lower exrtremity 2/5 General Appearance: Other (intubated) Lungs: Clear to auscultation Cardiovascular: Regular rate, Normal S1, Normal S2 Abdomen: Normal bowel sounds Medications Current Medications Medications Dose Ordered Sig/Paramjit Route Start Time Stop Time Status Last Admin Dose Admin Levalbuterol HCl 1.25 mg Q6HR NEB 09/12/24 06:00 10/05/24 06:25 1.25 MG Ipratropium [place] 0.5 mg Q6HR NEB 09/12/24 06:00 10/05/24 06:25 0.5 MG Pantoprazole Sodium 40 mg DAILY IV 09/13/24 10:00 10/04/24 11:01 40 MG Dextrose 50 ml UD PRN IV 09/17/24 11:00 Cancel Acetaminophen 650 mg Q4HP PRN PO 09/19/24 10:00 09/21/24 07:51 650 MG Heparin Sodium (Porcine) 5,000 units Q12HR SC 09/23/24 10:00 10/04/24 21:55 5,000 UNITS Nystatin 1 applic BID TOP 09/24/24 22:00 10/04/24 21:54 1 APPLIC Diagnostic Test (Pha) 1 strip IQ4HR 09/25/24 12:00 10/05/24 08:16 1 STRIP Insulin Human Regular IQ4HR SC 09/25/24 12:00 10/04/24 16:38 6 UNITS Dextrose 50 ml UD PRN IV 09/25/24 09:30 Potassium Chloride 100 ml @ 50 mls/hr Q2H IV 09/26/24 06:15 09/26/24 10:14 UNV Furosemide 20 mg BIDD IV 09/30/24 06:00 10/05/24 06:17 20 MG Prednisone 40 mg DAILY PO 10/03/24 10:00 10/03/24 10:14 40 MG Ceftriaxone Sodium 50 ml @ 100 mls/hr DAILY@09 IV 10/03/24 09:00 10/05/24 09:20 100 MLS/HR Fluconazole 200 mg DAILY PO 10/03/24 10:00 10/03/24 10:14 200 MG Insulin Glargine 30 units DAILY@1000 SC 10/03/24 08:15 10/04/24 11:00 30 UNITS Enteral Nutritional Formula 240 ml BIDWM PO 10/03/24 18:00 Sodium Chloride 1,000 ml @ 75 mls/hr [id number] IV 10/03/24 13:30 10/05/24 08:51 75 MLS/HR Dopamine HCl/ Dextrose 250 ml @ 6.48 mls/hr Q24H IV 10/04/24 09:45 10/04/24 11:40 6.48 MLS/HR Hydralazine HCl 20 mg Q4HPRN PRN IV 10/04/24 11:30 10/04/24 12:02 20 MG Laboratory Results Laboratory Tests 10/05/24 03:30 Chemistry Test 10/05/24 03:30 Calcium Level 10.1 mg/dL (8.7-10.4) Urinalysis Test 09/11/24 23:15 09/14/24 22:12 09/15/24 13:45 10/03/24 17:45 Urine Protein/Creatinine Ratio 0.31 Urine Total Protein 87.7 mg/dL (1-14) H Urine Creatinine 141.86 mg/dL (30.0-125.0) H Urine Sodium 11 mmol/L (40-220) L Urine Color Light-yellow (Yellow) Urine Clarity Clear (Clear) Urine pH 6.0 (5.0-9.0) Urine Specific [place] 1.011 (1.001-1.035) Urine Protein 1+ (Negative) H Urine Ketones Negative (Negative) Urine Blood 3+ /uL (Negative) H Urine Nitrite Negative (Negative) Urine Bilirubin Negative (Negative) Urine Urobilinogen Normal mg/dL (Negative) Urine Leukocyte Esterase Negative /uL (Negative) Urine RBC 23 /hpf (0 - 3) Urine Microscopic WBC 5 /HPF (0-3) H Urine Squamous Epithelial Cells Few /hpf (<5) Urine Bacteria None seen /hpf (None Seen) Urine Hyaline Casts Few /lpf (0 - 2) Urine Mucus Few (None Seen) Urine Glucose Normal mg/dL (Normal) Blood Gas Results Test 10/04/24 12:53 Arterial Blood pH 7.463 (7.350-7.450) FiO2 % 28.0 Microbiology Microbiology Date/Time Source Procedure Growth Status 09/30/24 16:50 Sacrum Gram Stain - Final Complete 09/30/24 16:50 Wound Culture - Final Enterococcus faecalis Complete 09/22/24 15:00 Blood Blood Culture - Final NO GROWTH AFTER 5 DAYS OF INCUBATION. Complete 09/22/24 11:00 Sputum Gram Stain - Final Complete 09/22/24 11:00 Respiratory Culture - Final Presumptive Jessica tropicalis Complete 09/22/24 10:50 Urine - [place] Urine Culture - Final Complete Labs and/or images reviewed: Labs reviewed by me, Image(s) reviewed by me Assessment/Plan Assessment/Plan update 10/04 weekend coverage. Patient's HD catheter was removed, extubated, doing well, blood pressure high systolic 160s. Patient is arousable but he does not communicate. A&O times 0. Labs are stable BUN remains elevated around 100. Concern for uremic encephalopathy, likely needs to restart dialysis, defer to Nephrology. CT head done yesterday with no acute intracranial abnormalities. 10/05 patient is arousable to verbal and tactile stimuli. But A&O x1 only. Patient has decreased arousal and Elaine somnolent and RN is holding p.o. meds for concern for aspiration. Also holding off BiPAP/CPAP for same reason. ABG mild increased pCO2 but not in danger range. Nephrology following BUN remains elevated mild decrease but no significant change. Nephrology is trying dopamine drip. Cefepime can make patient confused and we will have to deescalate. Making good urine output. He has had minimal p.o. intake so start PPN until mentation improves. We will try to switch p.o. meds to IV as best as possible (most meds are IV we will make fluconazole IV and he can hold prednisone p.o.) Neurology Acute metabolic encephalopathy likely due to hypercapnia - Extubated on 09/30/24 Respiratory Acute on chronic hypercarbic respiratory failure COPD MRSA Pneumonia Severe pulmonary hypertension Obstructive sleep apnea - DuoNebs q.6 hours - sputum culture showing growth of MRSA - repeated culture showing growth of yeast - IV antibiotics vancomycin and ceftriaxone and fluconazole - Prednisone 40 mg po daily Cardiovascular Shock likely due to sepsis resolved Acute on chronic heart failure with a reduced ejection fraction NYHA class 4 Paroxysmal atrial fibrillation , sick sinus syndrome with s/p dual-chamber pacemaker Coronary artery disease (coronary angiogram in 2020) Severe pulmonary hypertension with RV hypokinesis Peripheral artery disease with s/p right above-knee amputation - IV Lasix 20 mg bid - anticoagulation currently on prophylactic heparin Nephrology CASS 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 Acute complicated cystitis Uremia - Hold HD as per nephrology - Good urine output - nephrology on board Infectious disease Septic shock likely due to UTI versus pneumonia UTI growing E coli MRSA pneumonia - on IV cefepime and vancomycin and micafungin Metabolic Hypokalemia and hypernatremia -Replenished Endocrine Type 2 diabetes mellitus with hemoglobin A1c 6.4 - Lantus 25 units at QAM and moderate sliding scale of insulin Gastroenterology S/p diversion colostomy Peripheral line Xavier's catheter placed on 09/12 Diet: Pureed diet PUD prophylaxis: Protonix DVT prophylaxis: heparin Plan discussed with: Other Date of Service: October 05, 2024 Billing Provider: YOLANDA ROBERTS MD Common Visit Codes: [id number] CARE 30-74 MIN YOLANDA ROBERTS MD October 05, 2024 11:07
[2024-10-05] MEDS ORDERED: hydrALAZINE HCL 20 MG/ML VL IV PRN (11:15)
[2024-10-05] MEDS ORDERED: PPN PER PHARMACY 0 ML IV SCH (11:15)
[2024-10-05 11:54] LABS: Magnesium 1.7 mg/dL (1.6-2.6)
[2024-10-05 11:56] LABS: Albumin 4.1 g/dL (3.2-4.8); Phosphorus 4.7 mg/dL (2.4-5.1)
[2024-10-05] MEDS: FLUCONAZOLE 200MG/100ML 100 ML IV ONE (12:01)
--- NOTE | 2024-10-05 13:45 | MEDREC ---
[facility] Intervention Section I [facility] Intervention: Review courses of therapy (PLEASE CONSIDER REVIEWING COURSE OF THERAPY ACCORDING TO CULTURE RESULTS IF CINICALLY RELEVANT ) JOSE PEREZ PHARMACIST October 05, 2024 13:45
[2024-10-05] MEDS ORDERED: VANCOMYCIN 500mg/100mL 100 ML IV SCH (16:00)
[2024-10-05] MEDS: PPN PER PHARMACY IV NR (22:00)
--- NOTE | 2024-10-05 22:55 | DVHPN2 ---
Progress Note - Dictate Date Seen: October 05, 2024 Has the PT tested + for MRSA If YES, has PT been informed?: No Medical Necessity Reason Pt with a Central, PICC or Fol: Yes The following are medically ne: Central Line, Mallory Catheter Reason for mallory catheter: Strict I&O Subjective Patient was seen and evaluated in follow up in the ICU. No overnight events. Po meds are being held at this time due to patient being unable to safely swallow. WBC 16. vital signs Vital Sign Date Time Temp Pulse Resp B/P (MAP) Pulse Ox O2 Delivery O2 Flow Rate FiO2 10/05/24 15:00 69 26 114/60 (78) 98 10/05/24 14:00 Nasal Cannula* 2 28 10/05/24 12:00 97.8 97.8 Total Intake and Output 10/04/24 10/04/24 10/05/24 14:59 22:59 06:59 Intake Total 719.44 ml 656.84 ml 651.84 ml Output Total 1050 ml 400 ml Balance 719.44 ml -393.16 ml 251.84 ml medications Current Medications Medications Dose Ordered Sig/Paramjit Route Start Time Stop Time Status Last Admin Dose Admin Levalbuterol HCl 1.25 mg Q6HR NEB 09/12/24 06:00 10/05/24 12:07 1.25 MG Ipratropium [place] 0.5 mg Q6HR NEB 09/12/24 06:00 10/05/24 12:07 0.5 MG Pantoprazole Sodium 40 mg DAILY IV 09/13/24 10:00 10/05/24 11:03 40 MG Dextrose 50 ml UD PRN IV 09/17/24 11:00 Cancel Acetaminophen 650 mg Q4HP PRN PO 09/19/24 10:00 09/21/24 07:51 650 MG Heparin Sodium (Porcine) 5,000 units Q12HR SC 09/23/24 10:00 10/05/24 11:07 5,000 UNITS Nystatin 1 applic BID TOP 09/24/24 22:00 10/05/24 11:08 1 APPLIC Diagnostic Test (Pha) 1 strip IQ4HR 09/25/24 12:00 10/05/24 12:01 1 STRIP Insulin Human Regular IQ4HR SC 09/25/24 12:00 10/04/24 16:38 6 UNITS Dextrose 50 ml UD PRN IV 09/25/24 09:30 Potassium Chloride 100 ml @ 50 mls/hr Q2H IV 09/26/24 06:15 09/26/24 10:14 UNV Furosemide 20 mg BIDD IV 09/30/24 06:00 10/05/24 06:17 20 MG Prednisone 40 mg DAILY PO 10/03/24 10:00 10/03/24 10:14 40 MG Ceftriaxone Sodium 50 ml @ 100 mls/hr DAILY@09 IV 10/03/24 09:00 10/05/24 09:20 100 MLS/HR Insulin Glargine 30 units DAILY@1000 SC 10/03/24 08:15 10/04/24 11:00 30 UNITS Enteral Nutritional Formula 240 ml BIDWM PO 10/03/24 18:00 Sodium Chloride 1,000 ml @ 75 mls/hr [id number] IV 10/03/24 13:30 10/05/24 08:51 75 MLS/HR Dopamine HCl/ Dextrose 250 ml @ 6.48 mls/hr Q24H IV 10/04/24 09:45 10/04/24 11:40 6.48 MLS/HR Hydralazine HCl 20 mg Q4HPRN PRN IV 10/05/24 11:15 Amino Acids 0 ml @ 0 mls/hr PER PHARMACY IV 10/05/24 11:15 Fluconazole 100 ml @ 100 mls/hr DAILY IV 10/06/24 10:00 Fat Emulsion Intravenous 100 ml/Potassium Chloride 40 meq/ Magnesium Sulfate 8 meq/ Multivitamins 10 ml/Amino Acids/ Dextrose/Purified Water 1,232 ml @ 51 mls/hr [id number] IV 10/05/24 22:00 10/06/24 21:59 objective GENERAL: Alert and oriented x 2. No acute distress. EYES: PERRL, EOMI. Anicteric. HENT: Moist mucous membranes. LUNGS: breath sounds. CARDIOVASCULAR: Regular rate and rhythm. ABDOMEN: Soft, nontender and nondistended. Colostomy bag to the right-sided abdomen. EXTREMITIES: Right AKA. SKIN: Warm, dry. laboratory and microbiology Laboratory Tests 10/05/24 03:30 Test 10/05/24 03:30 Range/Units Serum Glucose 94 74-106 mg/dL Problem List Acute on chronic hypoxic respiratory failure secondary to probable CHF exacerbation. Acute on chronic Moderately reduced congestive heart failure exacerbation-NYHA class 4. Pneumonia. AFib, rate controlled on Eliquis. COPD on 3 L home oxygen. Mild coronary artery disease. Sick sinus syndrome status post dual-chamber Biotronik pacemaker 2016. Obstructive apnea on CPAP. Acute cystitis. Diabetes mellitus type 2-A1c 6.4. ? CASS on CKD. Left-sided hydrocele. Anemia likely iron-deficiency. Secondary hypercoagulable state. History of left breast cancer status post surgery and tamoxifen therapy 2007. History of laparoscopic left radical nephrectomy 2013. History of colostomy 2019. Stage I decubitus sacral ulcer. Tunnel hemorrhoids. Diverticulosis. Assessment/Plan Continued all current supportive medical care. IV antibiotics as ordered. Diuretics with Lasix. GI prophylactics. Additional plan as per the hospital course. Critical care time of 45 minutes provided to include time spent evaluation of patient at bedside, when appropriate patient/family education for diagnosis, treatment plan, review of pertinent medical information and discussion of care with specialty providers and PCP. Dietary Evaluation Review Comments: 1) Matthieu 1 pk daily (ordered per ONS protocol) 2) CCHO 75gm + cardiac 3) Refer Rug Washer on DC 4) Continue current plan of care Expected Outcomes/Goals: To meet >75% estimated needs Fu 3-5 days Plan discussed with: Patient EVERTON SHELDON MD October 05, 2024 15:13
--- NOTE | 2024-10-05 23:14 | DVHPN2 ---
Progress Note - Dictate Date Seen: October 05, 2024 Has the PT tested + for MRSA If YES, has PT been informed?: No Medical Necessity Reason Pt with a Central, PICC or Fol: Yes The following are medically ne: Central Line, Mallory Catheter Reason for mallory catheter: Strict I&O Subjective Patient seen and examined at bedside. Remains on supplemental oxygen Overnight events reviewed. vital signs Vital Sign Date Time Temp Pulse Resp B/P (MAP) Pulse Ox O2 Delivery O2 Flow Rate FiO2 10/05/24 23:00 74 26 106/52 (70) 93 10/05/24 20:00 Nasal Cannula* 2 28 10/05/24 20:00 98.0 98.0 Total Intake and Output 10/04/24 10/04/24 10/05/24 15:00 23:00 07:00 Intake Total 725.92 ml 656.84 ml 651.84 ml Output Total 1050 ml 400 ml Balance 725.92 ml -393.16 ml 251.84 ml medications Current Medications Medications Dose Ordered Sig/Paramjit Route Start Time Stop Time Status Last Admin Dose Admin Levalbuterol HCl 1.25 mg Q6HR NEB 09/12/24 06:00 10/05/24 17:52 1.25 MG Ipratropium [place] 0.5 mg Q6HR NEB 09/12/24 06:00 10/05/24 17:52 0.5 MG Pantoprazole Sodium 40 mg DAILY IV 09/13/24 10:00 10/05/24 11:03 40 MG Dextrose 50 ml UD PRN IV 09/17/24 11:00 Cancel Acetaminophen 650 mg Q4HP PRN PO 09/19/24 10:00 09/21/24 07:51 650 MG Heparin Sodium (Porcine) 5,000 units Q12HR SC 09/23/24 10:00 10/05/24 22:00 5,000 UNITS Nystatin 1 applic BID TOP 09/24/24 22:00 10/05/24 21:56 1 APPLIC Diagnostic Test (Pha) 1 strip IQ4HR 09/25/24 12:00 10/05/24 19:47 1 STRIP Insulin Human Regular IQ4HR SC 09/25/24 12:00 10/04/24 16:38 6 UNITS Dextrose 50 ml UD PRN IV 09/25/24 09:30 Potassium Chloride 100 ml @ 50 mls/hr Q2H IV 09/26/24 06:15 09/26/24 10:14 UNV Furosemide 20 mg BIDD IV 09/30/24 06:00 10/05/24 18:26 20 MG Prednisone 40 mg DAILY PO 10/03/24 10:00 10/03/24 10:14 40 MG Ceftriaxone Sodium 50 ml @ 100 mls/hr DAILY@09 IV 10/03/24 09:00 10/05/24 09:20 100 MLS/HR Insulin Glargine 30 units DAILY@1000 SC 10/03/24 08:15 10/04/24 11:00 30 UNITS Enteral Nutritional Formula 240 ml BIDWM PO 10/03/24 18:00 Sodium Chloride 1,000 ml @ 75 mls/hr [id number] IV 10/03/24 13:30 10/05/24 08:51 75 MLS/HR Dopamine HCl/ Dextrose 250 ml @ 6.48 mls/hr Q24H IV 10/04/24 09:45 10/04/24 11:40 6.48 MLS/HR Hydralazine HCl 20 mg Q4HPRN PRN IV 10/05/24 11:15 Amino Acids 0 ml @ 0 mls/hr PER PHARMACY IV 10/05/24 11:15 Fluconazole 100 ml @ 100 mls/hr DAILY IV 10/06/24 10:00 Fat Emulsion Intravenous 100 ml/Potassium Chloride 40 meq/ Magnesium Sulfate 8 meq/ Multivitamins 10 ml/Amino Acids/ Dextrose/Purified Water 1,232 ml @ 51 mls/hr [id number] IV 10/05/24 22:00 10/06/24 21:59 10/05/24 22:00 51 MLS/HR objective Gen.: Patient lying in bed in no apparent distress. On supplemental oxygen. Head: Normocephalic, atraumatic. Eyes: EOMI/PERRLA. Ears: Normal hearing. Normal anatomy. Neck/trachea: Trachea midline, supple. Nose: Normal external anatomy. Mouth: Moist mucous membranes. Chest: Decreased air entry bilaterally. No wheezing or rhonchi. Cardiovascular: Positive S1, positive S2. Regular rate and rhythm. Abdomen: Positive bowel sounds in all 4 quadrants. Soft, non-tender, non- distended. : Deferred. Rectal: Deferred. Skin: Warm, dry. Intact. Extremities: 2+ radial pulses bilaterally. No lower extremity edema. Neuro: Awake, alert, oriented x3. No gross motor or sensory deficits. Cranial nerves II through XII intact. Gait not assessed. laboratory and microbiology Laboratory Tests 10/05/24 03:30 Test 10/05/24 03:30 Range/Units Serum Glucose 94 74-106 mg/dL Assessment/Plan Impression: Acute hypoxemic respiratory failure Pneumonia Congestive heart failure Acute kidney injury Events: Currently on supplemental oxygen On 2 LPM NC Taper O2 as tolerated Dopamine drip 2 mcg/min Continue bronchodilators. Continue antibiotics. Continue antifungal Head of bed elevation Aspiration precautions TPN for nutritional support Diurese with Lasix Monitor renal function Monitor electrolytes. Supplement as necessary. Monitor ins and outs. Labs and imaging reviewed Plan: Supplemental oxygen Titrate to keep O2 sats above 92%. Continue bronchodilators. Continue antibiotics On dopamine drip Monitor renal function Monitor electrolytes. Supplement as necessary. Monitor ins and outs Nutrition DVT/GI prophylaxis Full code Prognosis: Poor given patient's multiple co-morbidities. Condition: Critical Rest of plan per hospitalist and other consultants. A total of 35 minutes of critical care time was spent reviewing the patient record, examining the patient, making a diagnostic and therapeutic plan, discussing this plan with the medical personnel, following up on diagnostic studies and following the patient for clinical stability excluding any and all procedures. At least 50% of this time was spent in direct, [id number] contact. Thank you for allowing me to participate in this patient's care. Further recommendations will depend on the patient's clinical course. Please do not hesitate to contact me if you have any questions or concerns. This medical document was created using an electronic medical record system with [employer] dictation system. Although these documentations are being carefully reviewed, there may still be some phonetic and typographical changes. The errors are purely typographical, due to imperfection on the software program, and do not reflect any compromise in the patient's medical care. Dietary Evaluation Review Comments: 1) Matthieu 1 pk daily (ordered per ONS protocol) 2) CCHO 75gm + cardiac 3) Refer Procedures Analyst on DC 4) Continue current plan of care Expected Outcomes/Goals: To meet >75% estimated needs Fu 3-5 days Plan discussed with: Other (CHUCKIE Davis) Critical Care Time(min): 35 CAR SLIVA MD October 05, 2024 23:14
[2024-10-06] VITALS (99 sets, daily range): BP systolic 82–146; BP diastolic 27–125; PULSE 65–85; RESP 12–32; TEMP 97.4–98; O2SAT 89–100
[2024-10-06 03:34] LABS: Hematocrit 44.8 % (41.0-53.0)
[2024-10-06 03:37] LABS: Hemoglobin 14.4 g/dL (13.5-17.5); Mean Corpuscular Hemoglobin 25.5 pg (28.0-32.0); Mean Corpuscular Hgb Conc. 32.3 g/dL (32.0-36.0); Mean Corpuscular Volume 79.2 fL (80.0-100.0); Platelet Count (auto) 145 10^3/uL (140-450); Red Blood Cells 5.66 10^6/uL (4.5-5.90); Red Cell Distribution Width 23.6 % (11.8-14.3); White Blood Cell 13.3 10^3/uL (4.4-10.8)
[2024-10-06 04:02] LABS: Alanine Aminotransferase 40 U/L (7-40); Albumin 3.8 g/dL (3.2-4.8); Alkaline Phosphatase 74 U/L (46-116); Anion Gap 17 (5-15); BUN/Creatinine Ratio 36.9 (10.0-20.0); Calcium 9.1 mg/dL (8.7-10.4); Carbon Dioxide 25 mmol/L (20-31); Chloride 98 mmol/L (98-107); Magnesium 1.9 mg/dL (1.6-2.6); Potassium 3.6 mmol/L (3.5-5.1); Sodium 140 mmol/L (136-145); Total Protein 6.5 g/dL (5.7-8.2)
[2024-10-06 04:04] LABS: Aspartate Aminotransferase 45 U/L (13-40); Bilirubin, Total 1.4 mg/dL (0.2-1.0); Blood Urea Nitrogen 90 mg/dL (9-23); Glucose 173 mg/dL (74-106); Phosphorus 5.5 mg/dL (2.4-5.1)
[2024-10-06 04:15] LABS: Band Neutrophils % (manual) 0; Basophils % (manual) 0 (0.0-2.0); Blast Cells 0; Myelocytes % 0; Promyelocytes % 0; Reactive Lymphocytes 0
--- NOTE | 2024-10-06 05:09 | DVH ---
EXAM: XR Chest, 1 View CLINICAL INDICATION: Intubated TECHNIQUE: Frontal view of the chest. COMPARISON: XY CHEST XRAY 1 VIEW on DOS: 10/05/24, XY CHEST XRAY 1 VIEW on DOS: 10/04/24, XY CHEST PO RTABLE on DOS: 10/03/24, XY CHEST XRAY 1 VIEW on DOS: 10/02/24, XY CHEST XRAY 1 VIEW on DOS: 10/01/24 FINDINGS: LUNGS AND PLEURAL SPACES: See below. HEART: Cardiomegaly with mild congestion. MEDIASTINUM: Unremarkable. Normal mediastinal contour. BONES/JOINTS: Unremarkable. No acute fracture. TUBES, LINES AND DEVICES: Left-sided cardiac pacemaker. OTHER FINDINGS: . . IMPRESSION: Cardiomegaly with mild congestion.
[2024-10-06 05:18] LABS: Anisocytosis Slight; Eosinophils % (manual) 2 (0-7); Lymphocytes % (manual) 5 (10.0-50.0); Metamyelocytes % 1; Monocytes % (manual) 9 (0-12)
[2024-10-06 05:19] LABS: Large Platelets FEW; Platelet Estimate Adequate
--- NOTE | 2024-10-06 10:32 | DVH ---
Upper Extremity Venous Duplex Clinical History: ARM SWELLING WITH REDNESS AND WARMTH NOTED Comparison: None Technique: Duplex Doppler evaluation of the venous system of the bilateral lower neck and upper extremity includ ing color Doppler and spectral/pulsed waveform analysis was performed. Findings: RIGHT: The internal jugular vein demonstrates thrombus. The subclavian vein is patent on color Doppler evaluation without intraluminal thrombus and demonstra shad waveform variability. The visualized portion of the brachiocephalic vein is patent on color Doppler evaluation without intr aluminal thrombus and demonstrates waveform variability. The axillary vein demonstrates appropriate compressibility and waveform variability. The brachial veins demonstrate appropriate compressibility and patency on Doppler evaluation. The basilic vein demonstrates appropriate compressibility and patency on Doppler evaluation. The cephalic vein demonstrates appropriate compressibility and patency on Doppler evaluation. LEFT: The left internal jugular vein is unremarkable. The subclavian vein is patent on color Doppler evaluation without intraluminal thrombus and demonstra shad waveform variability. The visualized portion of the brachiocephalic vein is patent on color Doppler evaluation without intr aluminal thrombus and demonstrates waveform variability. The axillary vein demonstrates appropriate compressibility and waveform variability. The brachial veins demonstrate appropriate compressibility and patency on Doppler evaluation. The basilic vein demonstrates appropriate compressibility and patency on Doppler evaluation. The cephalic vein demonstrates incomplete compressibility. Impression: Thrombus in the right internal jugular vein. Thrombus in the left cephalic vein. If clinical concern/symptoms persist or worsen, short-interval follow-up study is suggested.
[2024-10-06] MEDS: ENOXAPARIN SOD 100 MG/1 ML SYRINGE SC ONE (10:45)
[2024-10-06] MEDS: FLUCONAZOLE 200MG/100ML 100 ML IV SCH (11:32)
[2024-10-06] MEDS: LINEZOLID 600MG/300ML 300 ML IV SCH (11:32)
--- NOTE | 2024-10-06 13:43 | DVHPN2 ---
Progress Note Date Seen: October 06, 2024 Resident Creating Document: HALI CABALLERO RESIDENT Has the PT tested + for MRSA If YES, has PT been informed?: No Medical Necessity Reason Pt with a Central, PICC or Fol: Yes The following are medically ne: Central Line, Mallory Catheter Reason for mallory catheter: Strict I&O Subjective Review of Systems Patient seen and examined at bedside. Patient is alert but disoriented and confused, currently on nasal cannula 2 L of oxygen. Patient has been confused and disoriented since extubation. Primary team spoke regarding goals of care with family which finally decided to proceed with home hospice. At this time, we will discontinue dopamine and IV fluids. We will decrease Lasix to 20 mg IV once a day. At this time patient does not need any PICC line. Patient was recently change code status to DNR. Upon my examination, the patient is alert but disoriented, confused not following commands as expected. Left lower extremity looks dry with scales. Today total in's were 1662 and out's of 1295 for a positive balance of 368.5 cc. Today creatinine keeps slightly improving but BUN is still slightly elevated at 90. We will sign off the case at this point. ROS unable to obtain due to patient's current mental status. Objective vital signs Vital Sign Date Time Temp Pulse Resp B/P (MAP) Pulse Ox O2 Delivery O2 Flow Rate FiO2 10/06/24 13:15 72 17 107/56 (73) 98 10/06/24 12:00 Nasal Cannula* 2 28 10/06/24 12:00 97.4 97.4 Total Intake and Output 10/05/24 10/05/24 10/06/24 15:00 23:00 07:00 Intake Total 626.84 ml 552.84 ml 459.84 ml Output Total 765 ml 530 ml Balance 626.84 ml -212.16 ml -70.16 ml medications Current Medications Medications Dose Ordered Sig/Paramjit Route Start Time Stop Time Status Last Admin Dose Admin Levalbuterol HCl 1.25 mg Q6HR NEB 09/12/24 06:00 10/06/24 11:39 1.25 MG Ipratropium [place] 0.5 mg Q6HR NEB 09/12/24 06:00 10/06/24 11:38 0.5 MG Pantoprazole Sodium 40 mg DAILY IV 09/13/24 10:00 10/06/24 11:32 40 MG Dextrose 50 ml UD PRN IV 09/17/24 11:00 Cancel Acetaminophen 650 mg Q4HP PRN PO 09/19/24 10:00 09/21/24 07:51 650 MG Diagnostic Test (Pha) 1 strip IQ4HR 09/25/24 12:00 10/06/24 12:00 1 STRIP Insulin Human Regular IQ4HR SC 09/25/24 12:00 10/06/24 12:38 3 UNITS Dextrose 50 ml UD PRN IV 09/25/24 09:30 Potassium Chloride 100 ml @ 50 mls/hr Q2H IV 09/26/24 06:15 09/26/24 10:14 UNV Furosemide 20 mg BIDD IV 09/30/24 06:00 10/06/24 05:58 20 MG Prednisone 40 mg DAILY PO 10/03/24 10:00 10/03/24 10:14 40 MG Ceftriaxone Sodium 50 ml @ 100 mls/hr DAILY@09 IV 10/03/24 09:00 10/06/24 08:07 100 MLS/HR Insulin Glargine 30 units DAILY@1000 SC 10/03/24 08:15 10/04/24 11:00 30 UNITS Enteral Nutritional Formula 240 ml BIDWM PO 10/03/24 18:00 Hydralazine HCl 20 mg Q4HPRN PRN IV 10/05/24 11:15 Amino Acids 0 ml @ 0 mls/hr PER PHARMACY IV 10/05/24 11:15 Fluconazole 100 ml @ 100 mls/hr DAILY IV 10/06/24 10:00 10/06/24 11:32 100 MLS/HR Fat Emulsion Intravenous 100 ml/Potassium Chloride 40 meq/ Magnesium Sulfate 8 meq/ Multivitamins 10 ml/Amino Acids/ Dextrose/Purified Water 1,232 ml @ 51 mls/hr [id number] IV 10/05/24 22:00 10/06/24 21:59 10/05/24 22:00 51 MLS/HR Linezolid 300 ml @ 150 mls/hr Q12HR IV 10/06/24 10:00 10/06/24 11:32 150 MLS/HR Enoxaparin Sodium 90 mg DAILY SC 10/07/24 10:00 Fat Emulsion Intravenous 100 ml/Potassium Chloride 60 meq/ Magnesium Sulfate 8 meq/ Multivitamins 10 ml/Chromium/ Copper/Manganese/ Zinc 1 ml/Insulin Human Regular 6 units/Amino Acids/ Dextrose/Purified Water 1,443.06 ml @ 60 mls/hr Q24H4M IV 10/06/24 22:00 10/07/24 21:59 Examination Physical Examination General: Patient is status post extubation. Patient is alert in place but disoriented. Patient is still confused and unable to communicate properly. HEENT: Normocephalic, atraumatic, moist mucous membranes Respiratory/pulmonary: Clear lungs bilaterally, no associated crackles or wheezes. on 2L of O2 through NC Cardiovascular: Normal heart sounds S1 and S2 with no associated murmurs Abdomen: Abdomen nondistended, there is a colostomy bag in the abdomen with no leaks. Abdomen is soft and nontender to palpation. 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 Neurological: Patient is disoriented and confused at this time. laboratory and microbiology Laboratory Tests 10/06/24 03:12 Test 10/06/24 03:12 Range/Units Serum Glucose 173 H 74-106 mg/dL Microbiology Date/Time Source Procedure Growth Status 09/30/24 16:50 Sacrum Gram Stain - Final Complete 09/30/24 16:50 Wound Culture - Final Enterococcus faecalis Complete 09/22/24 15:00 Blood Blood Culture - Final NO GROWTH AFTER 5 DAYS OF INCUBATION. 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 Goals of care discussed with the nurse and or nurse manager Critical time spent 40min Plan discussed with Dr. Martinez Addendum Patient seen and examined, plan discussed with resident. Agree with above, we will sign off as pt family preferred hospice care Plan discussed with: Other My Orders My Orders Orders - HALI CABALLERO Procedure Category Date Status Time Furosemide Injection PHA 10/07/24 Transmitted (Lasix Injection) 10:00 Dietary Evaluation Review Comments: 1) Matthieu 1 pk daily (ordered per ONS protocol) 2) CCHO 75gm + cardiac 3) Refer Driver Engineer on DC 4) Continue current plan of care Expected Outcomes/Goals: To meet >75% estimated needs Fu 3-5 days HALI CABALLERO October 06, 2024 13:43 KILEY MARTINEZ MD October 06, 2024 15:40
[2024-10-06] MEDS: CATHFLO ACTIVASE (ALTEPLASE) 2 MG VIAL IV ONE (16:04)
--- NOTE | 2024-10-06 16:12 | DVHPNRES ---
Progress Note Date Seen: October 06, 2024 Resident Creating Document: DIOGO CORTEZ RESIDENT Has the PT tested + for MRSA If YES, has PT been informed?: No Medical Necessity Reason Pt with a Central, PICC or Fol: Yes The following are medically ne: Central Line, Mallory Catheter Reason for mallory catheter: Strict I&O Subjective Review of Systems Patient seen and examined at the bedside. Alert and oriented x1 Extubated on 09/30/2024 Now on 2 L oxygen with saturation 93% Good urinary output with a positive balance 368 ml no fever overnight and T-max is 97.6 Patient is NPO Spoke with family regarding patient's code status and goals of care and family wants to DNR/ DNI and wants hospice placement for the patient. Objective vital signs Vital Sign Date Time Temp Pulse Resp B/P (MAP) Pulse Ox O2 Delivery O2 Flow Rate FiO2 10/06/24 13:15 72 17 107/56 (73) 98 10/06/24 12:00 Nasal Cannula* 2 28 10/06/24 12:00 97.4 97.4 Total Intake and Output 10/05/24 10/05/24 10/06/24 15:00 23:00 07:00 Intake Total 626.84 ml 552.84 ml 459.84 ml Output Total 765 ml 530 ml Balance 626.84 ml -212.16 ml -70.16 ml medications Current Medications Medications Dose Ordered Sig/Paramjit Route Start Time Stop Time Status Last Admin Dose Admin Levalbuterol HCl 1.25 mg Q6HR NEB 09/12/24 06:00 10/06/24 11:39 1.25 MG Ipratropium [place] 0.5 mg Q6HR NEB 09/12/24 06:00 10/06/24 11:38 0.5 MG Pantoprazole Sodium 40 mg DAILY IV 09/13/24 10:00 10/06/24 11:32 40 MG Dextrose 50 ml UD PRN IV 09/17/24 11:00 Cancel Acetaminophen 650 mg Q4HP PRN PO 09/19/24 10:00 09/21/24 07:51 650 MG Diagnostic Test (Pha) 1 strip IQ4HR 09/25/24 12:00 10/06/24 12:00 1 STRIP Insulin Human Regular IQ4HR SC 09/25/24 12:00 10/06/24 12:38 3 UNITS Dextrose 50 ml UD PRN IV 09/25/24 09:30 Potassium Chloride 100 ml @ 50 mls/hr Q2H IV 09/26/24 06:15 09/26/24 10:14 UNV Ceftriaxone Sodium 50 ml @ 100 mls/hr DAILY@09 IV 10/03/24 09:00 10/06/24 08:07 100 MLS/HR Insulin Glargine 30 units DAILY@1000 SC 10/03/24 08:15 10/04/24 11:00 30 UNITS Enteral Nutritional Formula 240 ml BIDWM PO 10/03/24 18:00 Hydralazine HCl 20 mg Q4HPRN PRN IV 10/05/24 11:15 Amino Acids 0 ml @ 0 mls/hr PER PHARMACY IV 10/05/24 11:15 Fluconazole 100 ml @ 100 mls/hr DAILY IV 10/06/24 10:00 10/06/24 11:32 100 MLS/HR Fat Emulsion Intravenous 100 ml/Potassium Chloride 40 meq/ Magnesium Sulfate 8 meq/ Multivitamins 10 ml/Amino Acids/ Dextrose/Purified Water 1,232 ml @ 51 mls/hr [id number] IV 10/05/24 22:00 10/06/24 21:59 10/05/24 22:00 51 MLS/HR Linezolid 300 ml @ 150 mls/hr Q12HR IV 10/06/24 10:00 10/06/24 11:32 150 MLS/HR Enoxaparin Sodium 90 mg DAILY SC 10/07/24 10:00 Fat Emulsion Intravenous 100 ml/Potassium Chloride 60 meq/ Magnesium Sulfate 8 meq/ Multivitamins 10 ml/Chromium/ Copper/Manganese/ Zinc 1 ml/Insulin Human Regular 6 units/Amino Acids/ Dextrose/Purified Water 1,443.06 ml @ 60 mls/hr Q24H4M IV 10/06/24 22:00 10/07/24 21:59 Furosemide 20 mg DAILY IV 10/07/24 10:00 Examination Examination Constitutional: Patient is currently alert and oriented x1 and on 2 L oxygen through nasal cannula Gen - no pallor, no icterus, no cyanosis, no clubbing Skin - Patients skin is warm and dry. Skin of the left lower extremity below the knee is mottled with poor blood supply . HEENT - normocephalic, atraumatic, moist mucous membranes. Neck - full ROM, no LAD, JVD could not be assessed Pulmonary - B/L diminished breath sounds, no wheezing, no stridor. cardiovascular - variable S1,S2 heard, no added sounds no murmurs heard. GI - soft abdomen. no hepatospleenomegaly. Bowel sounds normoactive Extremities- right LE AKA with 2+ edema, left LE with mottled appearacne and pulse not palpable except femoral pulsation. Neurological - Alert, oriented x1, sensory intact, upper extremity 09/29, right below-knee amputation. Left lower exrtremity 07/02 laboratory and microbiology Laboratory Tests 10/06/24 03:12 Test 10/06/24 03:12 Range/Units Serum Glucose 173 H 74-106 mg/dL Microbiology Date/Time Source Procedure Growth Status 09/30/24 16:50 Sacrum Gram Stain - Final Complete 09/30/24 16:50 Wound Culture - Final Enterococcus faecalis Complete 09/22/24 15:00 Blood Blood Culture - Final NO GROWTH AFTER 5 DAYS OF INCUBATION. Complete 09/22/24 11:00 Sputum Gram Stain - Final Complete 09/22/24 11:00 Respiratory Culture - Final Presumptive Jessica tropicalis Complete 09/22/24 10:50 Urine - Mallory Port Urine Culture - Final Complete Labs and/or images reviewed: Labs reviewed by me, Image(s) reviewed by me Problem List/Assessment/Plan Problem List/Assessment/Plan Assessment and plan: Neurology Acute metabolic encephalopathy likely due to hypercapnia - Extubated on 09/30/24 Hematology Acute DVT of right internal jugular vein and SVT of left cephalic vein - Enoxaparin 90 mg sc daily Respiratory Acute on chronic hypercarbic respiratory failure COPD MRSA Pneumonia Severe pulmonary hypertension Obstructive sleep apnea - DuoNebs q.6 hours - sputum culture showing growth of MRSA - repeated culture showing growth of yeast - IV antibiotic Linezolid, ceftriaxone and fluconazole Cardiovascular Shock likely due to sepsis resolved Acute on chronic heart failure with a reduced ejection fraction NYHA class 4 Paroxysmal atrial fibrillation , sick sinus syndrome with s/p dual-chamber pacemaker Coronary artery disease (coronary angiogram in 2020) Severe pulmonary hypertension with RV hypokinesis Peripheral artery disease with s/p right above-knee amputation - IV Lasix 20 mg bid - anticoagulation currently on prophylactic heparin Nephrology CASS 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 Acute complicated cystitis Uremia - Hold HD as per nephrology - Good urine output - nephrology on board Skin Sacral ulcer growing Enterococcus faecalis sensitive to linezolid Infectious disease Septic shock likely due to UTI versus pneumonia UTI growing E coli MRSA pneumonia - on IV antibiotic Linezolid, ceftriaxone and fluconazole Metabolic Hypokalemia and hypernatremia -Replenished Endocrine Type 2 diabetes mellitus with hemoglobin A1c 6.4 - Lantus 25 units at QAM and moderate sliding scale of insulin Gastroenterology S/p diversion colostomy Peripheral line Lt arm midline placed on 10/05 Mallory's catheter placed on 09/12 Diet: Pureed diet PUD prophylaxis: Protonix DVT prophylaxis: heparin Goals of care discussed with the patient's for over 21 minutes. Full Code Critical care time spent excluding procedures: 44 minutes Plan discussed with Dr. Moreno Plan discussed with: Other (RN, ) My Orders My Orders Orders - DIOGO CORTEZ Procedure Category Date Status Time Linezolid 600mg/300ml PHA 10/06/24 In Process (Zyvox) 10:00 Code Status CODE 10/06/24 Transmitted 11:21 * Retail Loan Originator Assistant CONS 10/06/24 Transmitted Consult 13:33 Dietary Evaluation Review Comments: 1) Matthieu 1 pk daily (ordered per ONS protocol) 2) CCHO 75gm + cardiac 3) Refer Drafter Civil (Cad) on DC 4) Continue current plan of care Expected Outcomes/Goals: To meet >75% estimated needs Fu 3-5 days Date of Service: October 06, 2024 Billing Provider: ENMA MORENO MD Common Visit Codes: 35393-[id number] CARE 30-74 MIN DIOGO CORTEZ October 06, 2024 16:12 ENMA MORENO MD October 07, 2024 15:34
[2024-10-06] MEDS: NOREPINEPHRINE 8 MG/250ML KIT 250 ML IV ONE (18:50)
[2024-10-06] MEDS: PPN PER PHARMACY IV NR (21:49)
--- NOTE | 2024-10-06 22:18 | DVHPN2 ---
Progress Note - Dictate Date Seen: October 06, 2024 Has the PT tested + for MRSA If YES, has PT been informed?: No Medical Necessity Reason Pt with a Central, PICC or Fol: Yes The following are medically ne: Central Line, Mallory Catheter Reason for mallory catheter: Strict I&O Subjective Patient was seen and evaluated in follow up in the ICU. Patient is on 2 LPM NC. Patient is alert but disoriented and confused. Primary team spoke regarding goals of care with family which finally decided to proceed with home hospice. Patient was recently change code status. vital signs Vital Sign Date Time Temp Pulse Resp B/P (MAP) Pulse Ox O2 Delivery O2 Flow Rate FiO2 10/06/24 22:00 26 95 Nasal Cannula* 2 28 10/06/24 22:00 70 107/64 (78) 10/06/24 20:00 97.8 97.8 Total Intake and Output 10/05/24 10/05/24 10/06/24 15:00 23:00 07:00 Intake Total 626.84 ml 552.84 ml 459.84 ml Output Total 765 ml 530 ml Balance 626.84 ml -212.16 ml -70.16 ml medications Current Medications Medications Dose Ordered Sig/Paramjit Route Start Time Stop Time Status Last Admin Dose Admin Levalbuterol HCl 1.25 mg Q6HR NEB 09/12/24 06:00 10/06/24 19:11 1.25 MG Ipratropium [place] 0.5 mg Q6HR NEB 09/12/24 06:00 10/06/24 19:11 0.5 MG Pantoprazole Sodium 40 mg DAILY IV 09/13/24 10:00 10/06/24 11:32 40 MG Dextrose 50 ml UD PRN IV 09/17/24 11:00 Cancel Acetaminophen 650 mg Q4HP PRN PO 09/19/24 10:00 09/21/24 07:51 650 MG Diagnostic Test (Pha) 1 strip IQ4HR 09/25/24 12:00 10/06/24 20:13 1 STRIP Insulin Human Regular IQ4HR SC 09/25/24 12:00 10/06/24 20:14 2 UNITS Dextrose 50 ml UD PRN IV 09/25/24 09:30 Potassium Chloride 100 ml @ 50 mls/hr Q2H IV 09/26/24 06:15 09/26/24 10:14 UNV Ceftriaxone Sodium 50 ml @ 100 mls/hr DAILY@09 IV 10/03/24 09:00 10/06/24 08:07 100 MLS/HR Insulin Glargine 30 units DAILY@1000 SC 10/03/24 08:15 10/04/24 11:00 30 UNITS Hydralazine HCl 20 mg Q4HPRN PRN IV 10/05/24 11:15 Amino Acids 0 ml @ 0 mls/hr PER PHARMACY IV 10/05/24 11:15 Fluconazole 100 ml @ 100 mls/hr DAILY IV 10/06/24 10:00 10/06/24 11:32 100 MLS/HR Linezolid 300 ml @ 150 mls/hr Q12HR IV 10/06/24 10:00 10/06/24 21:38 150 MLS/HR Enoxaparin Sodium 90 mg DAILY SC 10/07/24 10:00 Fat Emulsion Intravenous 100 ml/Potassium Chloride 60 meq/ Magnesium Sulfate 8 meq/ Multivitamins 10 ml/Chromium/ Copper/Manganese/ Zinc 1 ml/Insulin Human Regular 6 units/Amino Acids/ Dextrose/Purified Water 1,443.06 ml @ 60 mls/hr Q24H4M IV 10/06/24 22:00 10/07/24 21:59 10/06/24 21:49 60 MLS/HR Furosemide 20 mg DAILY IV 10/07/24 10:00 objective GENERAL: Alert and oriented x 1. No acute distress. EYES: PERRL, EOMI. Anicteric. HENT: Moist mucous membranes. LUNGS: breath sounds. CARDIOVASCULAR: Regular rate and rhythm. ABDOMEN: Soft, nontender and nondistended. Colostomy bag to the right-sided abdomen. EXTREMITIES: Right AKA. SKIN: Warm, dry. laboratory and microbiology Laboratory Tests 10/06/24 03:12 Test 10/06/24 03:12 Range/Units Serum Glucose 173 H 74-106 mg/dL Problem List Acute on chronic hypoxic respiratory failure secondary to probable CHF exacerbation. Acute on chronic Moderately reduced congestive heart failure exacerbation-NYHA class 4. Pneumonia. AFib, rate controlled on Eliquis. COPD on 3 L home oxygen. Mild coronary artery disease. Sick sinus syndrome status post dual-chamber Biotronik pacemaker 2015. Obstructive apnea on CPAP. Acute cystitis. Diabetes mellitus type 2-A1c 6.4. ? CASS on CKD. Left-sided hydrocele. Anemia likely iron-deficiency. Secondary hypercoagulable state. History of left breast cancer status post surgery and tamoxifen therapy 2007. History of laparoscopic left radical nephrectomy 2013. History of colostomy 2019. Stage I decubitus sacral ulcer. Tunnel hemorrhoids. Diverticulosis. Assessment/Plan Continued all current supportive medical care. IV antibiotics as ordered. Diuretics with Lasix. DVT and GI prophylactics. Additional plan as per the hospital course. Critical care time of 45 minutes provided to include time spent evaluation of patient at bedside, when appropriate patient/family education for diagnosis, treatment plan, review of pertinent medical information and discussion of care with specialty providers and PCP. Dietary Evaluation Review Comments: 1) Matthieu 1 pk daily (ordered per ONS protocol) 2) CCHO 75gm + cardiac 3) Refer Plant Tour Guide on DC 4) Continue current plan of care Expected Outcomes/Goals: To meet >75% estimated needs Fu 3-5 days Plan discussed with: Other EVERTON SHELDON MD October 06, 2024 22:18
[2024-10-07] VITALS (52 sets, daily range): BP systolic 108–143; BP diastolic 51–75; PULSE 65–84; RESP 14–28; TEMP 97.1–97.9; O2SAT 90–100
[2024-10-07 04:43] LABS: Hematocrit 41.7 % (41.0-53.0); Hemoglobin 13.4 g/dL (13.5-17.5); Mean Corpuscular Hemoglobin 25.1 pg (28.0-32.0); Mean Corpuscular Volume 78.4 fL (80.0-100.0); Platelet Count (auto) 124 10^3/uL (140-450); Red Blood Cells 5.32 10^6/uL (4.5-5.90); Red Cell Distribution Width 23.4 % (11.8-14.3); White Blood Cell 12.7 10^3/uL (4.4-10.8)
[2024-10-07 04:45] LABS: Basophils % (manual) 0 (0.0-2.0); Blast Cells 0; Promyelocytes % 0; Reactive Lymphocytes 0
[2024-10-07 04:55] LABS: Alanine Aminotransferase 36 U/L (7-40); Albumin 3.6 g/dL (3.2-4.8); Alkaline Phosphatase 67 U/L (46-116); Anion Gap 14 (5-15); Aspartate Aminotransferase 36 U/L (13-40); BUN/Creatinine Ratio 36.3 (10.0-20.0); Carbon Dioxide 26 mmol/L (20-31); Phosphorus 4.4 mg/dL (2.4-5.1); Sodium 138 mmol/L (136-145); Total Protein 6.1 g/dL (5.7-8.2)
--- NOTE | 2024-10-07 05:10 | DVH ---
EXAM: XR Chest, 1 View CLINICAL INDICATION: Intubated TECHNIQUE: Frontal view of the chest. COMPARISON: XY CHEST XRAY 1 VIEW on DOS: 10/06/24, XY CHEST XRAY 1 VIEW on DOS: 10/05/24, XY CHEST XR AY 1 VIEW on DOS: 10/04/24, XY CHEST XRAY 1 VIEW on DOS: 10/02/24, XY CHEST XRAY 1 VIEW on DOS: 10/01/24 FINDINGS: LUNGS AND PLEURAL SPACES: Left basilar atelectasis or pneumonia. HEART: Cardiomegaly with mild congestion. MEDIASTINUM: Unremarkable. Normal mediastinal contour. BONES/JOINTS: Unremarkable. No acute fracture. TUBES, LINES AND DEVICES: Left-sided cardiac pacemaker. OTHER FINDINGS: . . . IMPRESSION: 1. Left basilar atelectasis or pneumonia. 2. Cardiomegaly with mild congestion.
[2024-10-07 05:12] LABS: Calcium 8.7 mg/dL (8.7-10.4); Chloride 98 mmol/L (98-107); Glucose 219 mg/dL (74-106); Potassium 3.3 mmol/L (3.5-5.1)
[2024-10-07 05:13] LABS: Blood Urea Nitrogen 106 mg/dL (9-23)
[2024-10-07 07:06] LABS: Anisocytosis Slight; Band Neutrophils % (manual) 3; Eosinophils % (manual) 2 (0-7); Large Platelets FEW; Lymphocytes % (manual) 8 (10.0-50.0); Metamyelocytes % 1; Monocytes % (manual) 8 (0-12); Myelocytes % 1; Platelet Estimate Decreased
[2024-10-07] MEDS: POTASSIUM CHL 20MEQ/100ML 100 ML IV ONE (09:00)
[2024-10-07] MEDS: FUROSEMIDE 20 MG/2 ML VIAL IV SCH ×2 (09:02→18:00)
[2024-10-07] MEDS: ENOXAPARIN SOD 100 MG/1 ML SYRINGE SC SCH (09:02)
[2024-10-07] MEDS ORDERED: FUROSEMIDE 20 MG/2 ML VIAL IV SCH (16:45)
--- NOTE | 2024-10-07 21:33 | DVHPNRES ---
Progress Note Date Seen: October 07, 2024 Resident Creating Document: DIOGO CORTEZ RESIDENT Has the PT tested + for MRSA If YES, has PT been informed?: No Medical Necessity Reason Pt with a Central, PICC or Fol: Yes The following are medically ne: Central Line, Malloyr Catheter Reason for mallory catheter: Strict I&O Subjective Review of Systems Patient seen and examined at the bedside. Alert and oriented x1 Extubated on 09/30/2024 Now on 2 L oxygen with saturation 93% Good urinary output with a positive balance 368 ml no fever overnight and T-max is 97.6 Patient is NPO and on PPN Spoke with family regarding patient's code status and goals of care and family wants to DNR/ DNI and wants hospice placement for the patient. Objective vital signs Vital Sign Date Time Temp Pulse Resp B/P (MAP) Pulse Ox O2 Delivery O2 Flow Rate FiO2 10/07/24 20:00 74 10/07/24 20:00 24 96 Nasal Cannula* 2 28 10/07/24 19:00 143/61 (88) 10/07/24 16:00 97.4 97.4 Total Intake and Output 10/06/24 10/06/24 10/07/24 15:00 23:00 07:00 Intake Total 220.44 ml 420 ml 480 ml Output Total 420 ml 350 ml Balance 220.44 ml 0 ml 130 ml medications Current Medications Medications Dose Ordered Sig/Paramjit Route Start Time Stop Time Status Last Admin Dose Admin Levalbuterol HCl 1.25 mg Q6HR NEB 09/12/24 06:00 10/07/24 17:54 1.25 MG Ipratropium [place] 0.5 mg Q6HR NEB 09/12/24 06:00 10/07/24 17:54 0.5 MG Pantoprazole Sodium 40 mg DAILY IV 09/13/24 10:00 10/07/24 09:02 40 MG Dextrose 50 ml UD PRN IV 09/17/24 11:00 Cancel Acetaminophen 650 mg Q4HP PRN PO 09/19/24 10:00 09/21/24 07:51 650 MG Diagnostic Test (Pha) 1 strip IQ4HR 09/25/24 12:00 10/07/24 20:23 1 STRIP Insulin Human Regular IQ4HR SC 09/25/24 12:00 10/07/24 20:25 6 UNITS Dextrose 50 ml UD PRN IV 09/25/24 09:30 Potassium Chloride 100 ml @ 50 mls/hr Q2H IV 09/26/24 06:15 09/26/24 10:14 UNV Ceftriaxone Sodium 50 ml @ 100 mls/hr DAILY@09 IV 10/03/24 09:00 10/07/24 09:01 100 MLS/HR Insulin Glargine 30 units DAILY@1000 SC 10/03/24 08:15 10/07/24 09:55 30 UNITS Hydralazine HCl 20 mg Q4HPRN PRN IV 10/05/24 11:15 Amino Acids 0 ml @ 0 mls/hr PER PHARMACY IV 10/05/24 11:15 Fluconazole 100 ml @ 100 mls/hr DAILY IV 10/06/24 10:00 10/07/24 09:01 100 MLS/HR Linezolid 300 ml @ 150 mls/hr Q12HR IV 10/06/24 10:00 10/07/24 09:01 150 MLS/HR Enoxaparin Sodium 90 mg DAILY SC 10/07/24 10:00 10/07/24 09:02 90 MG Fat Emulsion Intravenous 100 ml/Potassium Chloride 60 meq/ Magnesium Sulfate 8 meq/ Multivitamins 10 ml/Chromium/ Copper/Manganese/ Zinc 1 ml/Insulin Human Regular 6 units/Amino Acids/ Dextrose/Purified Water 1,443.06 ml @ 60 mls/hr Q24H4M IV 10/06/24 22:00 10/07/24 21:59 10/06/24 21:49 60 MLS/HR Fat Emulsion Intravenous 150 ml/Sodium Chloride 40 meq/ Potassium Chloride 60 meq/ Magnesium Sulfate 6 meq/ Multivitamins 10 ml/Chromium/ Copper/Manganese/ Zinc 1 ml/Insulin Human Regular 12 units/Amino Acids/ Dextrose/Purified Water 1,802.62 ml @ 75 mls/hr Q24H3M IV 10/07/24 22:00 10/08/24 21:59 Furosemide 20 mg DAILY IV 10/07/24 16:45 10/07/24 18:00 20 MG Examination Examination Constitutional: Patient is currently alert and oriented x2 and on 2 L oxygen through nasal cannula Gen - no pallor, no icterus, no cyanosis, no clubbing Skin - Patients skin is warm and dry. Skin of the left lower extremity below the knee is mottled with poor blood supply . HEENT - normocephalic, atraumatic, moist mucous membranes. Neck - full ROM, no LAD, JVD could not be assessed Pulmonary - B/L diminished breath sounds, no wheezing, no stridor. cardiovascular - variable S1,S2 heard, no added sounds no murmurs heard. GI - soft abdomen. no hepatospleenomegaly. Bowel sounds normoactive Extremities- right LE AKA with 2+ edema, left LE with mottled appearacne and pulse not palpable except femoral pulsation. Neurological - Alert, oriented x2, sensory intact, upper extremity 09/29, right below-knee amputation. Left lower exrtremity 07/02 laboratory and microbiology Laboratory Tests 10/07/24 03:00 Test 10/07/24 03:00 Range/Units Serum Glucose 219 H 74-106 mg/dL Microbiology Date/Time Source Procedure Growth Status 09/30/24 16:50 Sacrum Gram Stain - Final Complete 09/30/24 16:50 Wound Culture - Final Enterococcus faecalis Complete 09/22/24 15:00 Blood Blood Culture - Final NO GROWTH AFTER 5 DAYS OF INCUBATION. Complete 09/22/24 11:00 Sputum Gram Stain - Final Complete 09/22/24 11:00 Respiratory Culture - Final Presumptive Jessica tropicalis Complete 09/22/24 10:50 Urine - [place] Urine Culture - Final Complete Labs and/or images reviewed: Labs reviewed by me, Image(s) reviewed by me Problem List/Assessment/Plan Problem List/Assessment/Plan Assessment and plan: Neurology Acute metabolic encephalopathy likely due to hypercapnia - Extubated on 09/30/24 Hematology Acute DVT of right internal jugular vein and SVT of left cephalic vein - Enoxaparin 90 mg sc daily Respiratory Acute on chronic hypercarbic respiratory failure COPD MRSA Pneumonia Severe pulmonary hypertension Obstructive sleep apnea - DuoNebs q.6 hours - sputum culture showing growth of MRSA - repeated culture showing growth of yeast - IV antibiotic Linezolid, ceftriaxone and fluconazole Cardiovascular Shock likely due to sepsis resolved Acute on chronic heart failure with a reduced ejection fraction NYHA class 4 Paroxysmal atrial fibrillation , sick sinus syndrome with s/p dual-chamber pacemaker Coronary artery disease (coronary angiogram in 2020) Severe pulmonary hypertension with RV hypokinesis Peripheral artery disease with s/p right above-knee amputation - IV Lasix 20 mg bid - anticoagulation currently on prophylactic heparin Nephrology CASS 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 Acute complicated cystitis Uremia - Hold HD as per nephrology - Good urine output - nephrology on board Skin Sacral ulcer growing Enterococcus faecalis sensitive to linezolid Infectious disease Septic shock likely due to UTI versus pneumonia UTI growing E coli MRSA pneumonia - on IV antibiotic Linezolid, ceftriaxone and fluconazole Metabolic Hypokalemia and hypernatremia -Replenished Endocrine Type 2 diabetes mellitus with hemoglobin A1c 6.4 - Lantus 25 units at QAM and moderate sliding scale of insulin Gastroenterology S/p diversion colostomy Peripheral line Lt arm midline placed on 10/05 Mallory's catheter placed on 09/12 Diet: Pureed diet PUD prophylaxis: Protonix DVT prophylaxis: heparin Goals of care discussed with the patient's for over 21 minutes. Full Code Critical care time spent excluding procedures: 44 minutes Plan discussed with Dr. Moreno Plan discussed with: Spouse, Daughter My Orders My Orders Orders - DIOGO CORTEZ Procedure Category Date Status Time Transfer Orders XFER 10/07/24 Transmitted 16:36 Furosemide Injection PHA 10/07/24 In Process (Lasix Injection) 16:45 Dietary Evaluation Review Comments: 1) Matthieu 1 pk daily (ordered per ONS protocol) 2) CCHO 75gm + cardiac 3) Refer Bracelet Former on DC 4) Continue current plan of care Expected Outcomes/Goals: To meet >75% estimated needs Fu 3-5 days Date of Service: October 07, 2024 Billing Provider: ENMA MORENO MD Common Visit Codes: 42334-[id number] CARE 30-74 MIN DIOGO CORTEZ October 07, 2024 21:33 ENMA MORENO MD October 08, 2024 14:10
[2024-10-07] MEDS: PPN PER PHARMACY IV NR (21:41)
--- NOTE | 2024-10-07 22:51 | DVHPN2 ---
Progress Note - Dictate Date Seen: October 07, 2024 Has the PT tested + for MRSA If YES, has PT been informed?: No Medical Necessity Reason Pt with a Central, PICC or Fol: Yes The following are medically ne: Central Line, Mallory Catheter Reason for mallory catheter: Strict I&O Subjective Patient was seen and evaluated in follow up in the ICU. Patient is on 2 LPM NC. Patient is alert but disoriented. Patient has stable urine output. The patients family wants to DNR/ DNI and wants hospice placement for the patient. WBC 12.7. Chest x-ray shows left basilar atelectasis or pneumonia and cardiomegaly with mild congestion. vital signs Vital Sign Date Time Temp Pulse Resp B/P (MAP) Pulse Ox O2 Delivery O2 Flow Rate FiO2 10/07/24 22:00 26 97 Nasal Cannula* 2 28 10/07/24 22:00 70 10/07/24 19:00 143/61 (88) 10/07/24 16:00 97.4 97.4 Total Intake and Output 10/06/24 10/06/24 10/07/24 15:00 23:00 07:00 Intake Total 220.44 ml 420 ml 480 ml Output Total 420 ml 350 ml Balance 220.44 ml 0 ml 130 ml medications Current Medications Medications Dose Ordered Sig/Paramjit Route Start Time Stop Time Status Last Admin Dose Admin Levalbuterol HCl 1.25 mg Q6HR NEB 09/12/24 06:00 10/07/24 17:54 1.25 MG Ipratropium [place] 0.5 mg Q6HR NEB 09/12/24 06:00 10/07/24 17:54 0.5 MG Pantoprazole Sodium 40 mg DAILY IV 09/13/24 10:00 10/07/24 09:02 40 MG Dextrose 50 ml UD PRN IV 09/17/24 11:00 Cancel Acetaminophen 650 mg Q4HP PRN PO 09/19/24 10:00 09/21/24 07:51 650 MG Diagnostic Test (Pha) 1 strip IQ4HR 09/25/24 12:00 10/07/24 20:23 1 STRIP Insulin Human Regular IQ4HR SC 09/25/24 12:00 10/07/24 20:25 6 UNITS Dextrose 50 ml UD PRN IV 09/25/24 09:30 Potassium Chloride 100 ml @ 50 mls/hr Q2H IV 09/26/24 06:15 09/26/24 10:14 UNV Ceftriaxone Sodium 50 ml @ 100 mls/hr DAILY@09 IV 10/03/24 09:00 10/07/24 09:01 100 MLS/HR Insulin Glargine 30 units DAILY@1000 SC 10/03/24 08:15 10/07/24 09:55 30 UNITS Hydralazine HCl 20 mg Q4HPRN PRN IV 10/05/24 11:15 Amino Acids 0 ml @ 0 mls/hr PER PHARMACY IV 10/05/24 11:15 Fluconazole 100 ml @ 100 mls/hr DAILY IV 10/06/24 10:00 10/07/24 09:01 100 MLS/HR Linezolid 300 ml @ 150 mls/hr Q12HR IV 10/06/24 10:00 10/07/24 21:43 150 MLS/HR Enoxaparin Sodium 90 mg DAILY SC 10/07/24 10:00 10/07/24 09:02 90 MG Fat Emulsion Intravenous 150 ml/Sodium Chloride 40 meq/ Potassium Chloride 60 meq/ Magnesium Sulfate 6 meq/ Multivitamins 10 ml/Chromium/ Copper/Manganese/ Zinc 1 ml/Insulin Human Regular 12 units/Amino Acids/ Dextrose/Purified Water 1,802.62 ml @ 75 mls/hr Q24H3M IV 10/07/24 22:00 10/08/24 21:59 10/07/24 21:41 75 MLS/HR Furosemide 20 mg DAILY IV 10/07/24 16:45 10/07/24 18:00 20 MG objective GENERAL: Alert and oriented x 1. No acute distress. EYES: PERRL, EOMI. Anicteric. HENT: Moist mucous membranes. LUNGS: breath sounds. CARDIOVASCULAR: Regular rate and rhythm. ABDOMEN: Soft, nontender and nondistended. Colostomy bag to the right-sided abdomen. EXTREMITIES: Right AKA. SKIN: Warm, dry. laboratory and microbiology Laboratory Tests 10/07/24 03:00 Test 10/07/24 03:00 Range/Units Serum Glucose 219 H 74-106 mg/dL Problem List Acute on chronic hypoxic respiratory failure secondary to probable CHF exacerbation. Acute on chronic Moderately reduced congestive heart failure exacerbation-NYHA class 4. Pneumonia. AFib, rate controlled on Eliquis. COPD on 3 L home oxygen. Mild coronary artery disease. Sick sinus syndrome status post dual-chamber Biotronik pacemaker 2016. Obstructive apnea on CPAP. Acute cystitis. Diabetes mellitus type 2-A1c 6.4. ? CASS on CKD. Left-sided hydrocele. Anemia likely iron-deficiency. Secondary hypercoagulable state. History of left breast cancer status post surgery and tamoxifen therapy 2007. History of laparoscopic left radical nephrectomy 2013. History of colostomy 2019. Stage I decubitus sacral ulcer. Tunnel hemorrhoids. Diverticulosis. Assessment/Plan Continued all current supportive medical care. IV antibiotics as ordered. Diuretics with Lasix. DVT and GI prophylactics. Additional plan as per the hospital course. Critical care time of 45 minutes provided to include time spent evaluation of patient at bedside, when appropriate patient/family education for diagnosis, treatment plan, review of pertinent medical information and discussion of care with specialty providers and PCP. Dietary Evaluation Review Comments: 1) Matthieu 1 pk daily (ordered per ONS protocol) 2) CCHO 75gm + cardiac 3) Refer Construction Sales Representative on DC 4) Continue current plan of care Expected Outcomes/Goals: To meet >75% estimated needs Fu 3-5 days Plan discussed with: Other EVERTON SHELDON MD October 07, 2024 22:51
[2024-10-08] VITALS (27 sets, daily range): BP systolic 90–133; BP diastolic 44–63; PULSE 64–77; RESP 16–27; TEMP 96.4–98.3; O2SAT 85–100
[2024-10-08 04:32] LABS: Hematocrit 38.6 % (41.0-53.0); Hemoglobin 12.2 g/dL (13.5-17.5); Mean Corpuscular Hemoglobin 25.2 pg (28.0-32.0); Mean Corpuscular Hgb Conc. 31.7 g/dL (32.0-36.0); Mean Corpuscular Volume 79.3 fL (80.0-100.0); Platelet Count (auto) 113 10^3/uL (140-450); Red Blood Cells 4.86 10^6/uL (4.5-5.90); Red Cell Distribution Width 22.5 % (11.8-14.3); White Blood Cell 12.7 10^3/uL (4.4-10.8)
[2024-10-08 04:39] LABS: Alanine Aminotransferase 29 U/L (7-40); Alkaline Phosphatase 62 U/L (46-116); Anion Gap 11 (5-15); BUN/Creatinine Ratio 39.9 (10.0-20.0); Carbon Dioxide 26 mmol/L (20-31); Chloride 99 mmol/L (98-107); Potassium 3.9 mmol/L (3.5-5.1); Sodium 136 mmol/L (136-145)
[2024-10-08 04:40] LABS: Albumin 3.3 g/dL (3.2-4.8); Aspartate Aminotransferase 31 U/L (13-40); Basophils % (manual) 0 (0.0-2.0); Bilirubin, Total 0.7 mg/dL (0.2-1.0); Blast Cells 0; Reactive Lymphocytes 0
--- NOTE | 2024-10-08 04:42 | DVH ---
CHEST RADIOGRAPH Indication: Intubated Technique: Single frontal view of the chest was obtained Comparison: XY CHEST XRAY 1 VIEW on DOS: 10/07/24 FINDINGS: Lines and Tubes: Dual-chamber pacemaker noted. Lungs: Mild pulmonary congestion. Pleura: No effusion. No pneumothorax. Cardiomediastinal contours: Unremarkable Bones: No acute osseous abnormality. IMPRESSION: 1. Mild pulmonary congestion.
[2024-10-08 04:45] LABS: Calcium 8.4 mg/dL (8.7-10.4); Glucose 211 mg/dL (74-106); Total Protein 5.6 g/dL (5.7-8.2)
[2024-10-08 04:46] LABS: Blood Urea Nitrogen 109 mg/dL (9-23)
[2024-10-08 05:13] LABS: Anisocytosis Slight; Band Neutrophils % (manual) 2; Eosinophils % (manual) 2 (0-7); Large Platelets FEW; Lymphocytes % (manual) 9 (10.0-50.0); Metamyelocytes % 1; Monocytes % (manual) 6 (0-12); Myelocytes % 1; Ovalocytes MODERATE; Platelet Estimate Decreased; Promyelocytes % 2
--- NOTE | 2024-10-08 11:05 | DVHDSRES ---
Discharge Summary Date of Admission Resident Creating Document: DIOGO CORTEZ RESIDENT Sep 12, 2024 at 02:56 Date of Discharge: October 08, 2024 Admitting Diagnosis Acute on chronic hypoxic respiratory failure secondary pneumonia/ CHF exacerbation Wounds: Sacral ulcer present Labs/Diagnostic Data: Laboratory Results Test 10/08/24 10:18 10/08/24 03:41 10/05/24 03:30 10/04/24 12:53 POC Glucose 167 mg/dl (70-106) White Blood Count 12.7 10^3/uL (4.4-10.8) Red Blood Count 4.86 10^6/uL (4.5-5.90) Hemoglobin 12.2 g/dL (13.5-17.5) Hematocrit 38.6 % (41.0-53.0) Mean Corpuscular Volume 79.3 fL (80.0-100.0) Mean Corpuscular Hemoglobin 25.2 pg (28.0-32.0) Mean Corpuscular Hemoglobin Concent 31.7 g/dL (32.0-36.0) Red Cell Distribution Width 22.5 % (11.8-14.3) Platelet Count 113 10^3/uL (140-450) Mean Platelet Volume 9.2 fL (6.9-10.8) Neutrophils (%) (Auto) % (37.0-80.0) Lymphocytes (%) (Auto) % (10.0-50.0) Monocytes (%) (Auto) % (0.0-12.0) Basophils (%) (Auto) % (0.0-2.0) Neutrophils # (Auto) 10 ^3/uL (1.6-8.6) Lymphocytes # (Auto) 10 ^3/uL (0.4-5.4) Monocytes # (Auto) 10 ^3/uL (0-1.3) Differential Total Cells Counted 100.0 (100) Neutrophils % (Manual) 77 (37.0-80.0) Band Neutrophils % (Manual) 2 Lymphocytes % (Manual) 9 (10.0-50.0) Monocytes % (Manual) 6 (0-12) Eosinophils % (Manual) 2 (0-7) Basophils % (Manual) 0 (0.0-2.0) Metamyelocytes % (manual) 1 Myelocytes % (Manual) 1 Promyelocytes % (Manual) 2 Blast Cells % (Manual) 0 Reactive Lymphocytes 0 Platelet Estimate Decreased Large Platelets Few Anisocytosis (manual) Slight Microcytosis Slight Ovalocytes Moderate Sodium Level 136 mmol/L (136-145) Potassium Level 3.9 mmol/L (3.5-5.1) Chloride Level 99 mmol/L (98-107) Carbon Dioxide Level 26 mmol/L (20-31) Anion Gap 11 (5-15) Blood Urea Nitrogen 109 mg/dL (9-23) Creatinine 2.73 mg/dL (0.700-1.30) Glomerular Filtration Rate Calc 23 mL/min (>90) BUN/Creatinine Ratio 39.9 (10.0-20.0) Serum Glucose 211 mg/dL (74-106) Calcium Level 8.4 mg/dL (8.7-10.4) Phosphorus Level 3.0 mg/dL (2.4-5.1) Magnesium Level 2.0 mg/dL (1.6-2.6) Total Bilirubin 0.7 mg/dL (0.2-1.0) Aspartate Amino Transferase (AST) 31 U/L (13-40) Alanine Aminotransferase (ALT) 29 U/L (7-40) Alkaline Phosphatase 62 U/L (46-116) Total Protein 5.6 g/dL (5.7-8.2) Albumin 3.3 g/dL (3.2-4.8) Hypochromasia (manual) Slight Triglycerides Level 222 mg/dL (< 150) Random Vancomycin Level 15.8 ug/mL (5-10) Blood Gas Specimen Type Arterial Blood Gas Sample Site Right radial Blood Gas Patient Temperature 37.0 Arterial Blood Date Drawn Arterial Blood pH 7.463 (7.350-7.450) Arterial Blood Partial Pressure CO2 41.2 mmHg (35.0-48.0) Arterial Blood Partial Pressure O2 69.2 mmHg (83.0-108.0) Arterial Blood HCO3 28.8 mmol/L (21.0-28.0) Arterial Blood Oxygen Saturation 93.7 % (94.0-98.0) Arterial Blood Base Excess 4.6 mmol/L (-2.0-3.0) Arterial Blood Oxyhemoglobin 92.3 % (94.0-98.0) Arterial Blood Carboxyhemoglobin 1.5 % (0.5-1.5) Arterial Blood Methemoglobin 0.0 % (0.0-1.5) Yohannes Test Yes Blood Gas Total Hemoglobin 14.90 g/dL (13.5-17.5) Blood Gas Liter Flow 2.00 Blood Gas Modality Nasal cannula FiO2 % 28.0 Test 10/03/24 17:45 10/02/24 08:50 09/30/24 10:55 09/30/24 07:22 Urine Color Light-yellow (Yellow) Urine Clarity Clear (Clear) Urine pH 6.0 (5.0-9.0) Urine Specific [place] 1.011 (1.001-1.035) Urine Protein 1+ (Negative) Urine Ketones Negative (Negative) Urine Blood 3+ /uL (Negative) Urine Nitrite Negative (Negative) Urine Bilirubin Negative (Negative) Urine Urobilinogen Normal mg/dL (Negative) Urine Leukocyte Esterase Negative /uL (Negative) Urine RBC 23 /hpf (0 - 3) Urine Microscopic WBC 5 /HPF (0-3) Urine Squamous Epithelial Cells Few /hpf (<5) Urine Bacteria None seen /hpf (None Seen) Urine Hyaline Casts Few /lpf (0 - 2) Urine Mucus Few (None Seen) Urine Glucose Normal mg/dL (Normal) Eosinophils (%) (Auto) 0.0 % (0.0-7.0) Eosinophils # (Auto) 0 10 ^3/uL (0-0.8) Basophils # (Auto) 0.1 10 ^3/uL (0-0.2) Nucleated Red Blood Cells 0.1 % Blood Gas Pressure Support 8 Blood Gas PEEP or CPAP 5.0 Blood Gas Set Respiration Rate 18.0 Blood Gas Tidal Volume 450.0 Test 09/25/24 03:29 09/23/24 03:19 09/22/24 06:53 09/20/24 03:00 HIV (1&2) Antibody Negative (Negative) Prothrombin Time 12.0 sec (9.3-11.8) Prothrombin Time INR 1.15 (0.9-1.15) Activated Partial Thromboplast Time 29.1 SEC (24.5-34.5) Blood Gas Critical Value Read Back Yes Blood Gas Notified Whom Sarabjit bill Blood Gas Notified Time [id number] Blood Gas Notified By Kimi material control specialist Cholesterol Level 80 mg/dL (< 200) LDL Cholesterol 30 mg/dL (< 100) HDL Cholesterol 29 mg/dL (40-59) Test 09/17/24 19:47 09/17/24 04:32 09/16/24 07:01 09/15/24 13:45 Hepatitis A IgM Antibody Negative Hepatitis B Surface Antigen Negative (Negative) Hepatitis B Core IgM Antibody Negative (Negative) Hepatitis C Antibody Negative (Negative) Blood Gas EPAP 5 Blood Gas IPAP 18 Blood Gas Comments 18/ bur 14 Lactic Acid Level 1.4 mmol/L (0.4-2.0) Urine Creatinine 141.86 mg/dL (30.0-125.0) Urine Sodium 11 mmol/L (40-220) Test 09/15/24 10:28 09/15/24 01:12 09/14/24 22:12 09/13/24 06:07 Poikilocytosis (manual) Slight Tear Drop Cells Few Ihsan Cells Few B-Type Natriuretic Peptide 761.05 pg/mL (0-100) Urine Total Protein 87.7 mg/dL (1-14) Stool Occult Blood Sample #3 Negative (Negative) Test 09/12/24 03:31 09/11/24 23:43 09/11/24 23:15 09/11/24 19:06 Hemoglobin A1c 6.4 % A1C (<5.7) Iron Level 27 ug/dL (65-175) Total Iron Binding Capacity 338 ug/dL (250-425) Percent Iron Saturation 8.0 % (20-55) Ferritin 19.8 ng/mL (22-322) Vitamin B12 Level 607 pg/mL (211-911) Vitamin D 25-Hydroxy 67.3 ng/mL (30.0-100) Thyroid Stimulating Hormone (TSH) 3.87 uIU/mL (0.55-4.78) Influenza Type A Antigen Negative (Negative) Influenza Type B Antigen Negative (Negative) SARS-CoV-2 Antigen (Rapid) Negative (NEGATIVE) Urine Protein/Creatinine Ratio 0.31 Urine Opiates Screen Neg (NEGATIVE) Urine Fentanyl Screen Neg (NEGATIVE) Urine Barbiturates Screen Neg (NEGATIVE) Urine Phencyclidine Screen Neg (NEGATIVE) Urine Amphetamines Screen Neg (NEGATIVE) Urine Benzodiazepines Screen Neg (NEGATIVE) Urine Cocaine Screen Neg (NEGATIVE) Urine Cannabinoids Screen Neg (NEGATIVE) Troponin I High Sensitivity 21 ng/L (</=54) Test 09/11/24 18:21 Lipase 23 U/L (12-53) Other Laboratory Tests 10/08/24 03:41 Brief Hx & Hospital Course: Patient was a 79-year-old male with a past medical history as described below presented to the hospital with a chief complaint of shortness of breath and edema for 2 weeks. Patient reported that he was apparently doing well until 2 weeks ago on 3.5 L home oxygen when he started to have worsening shortness of breath, orthopnea associated with cough with yellowish phlegm and also complained of edema, associated body aches, fatigue. Patient was initially treated on the floor and then was shifted to the ICU because of worsening respiratory status and initiated on BiPAP and was eventually intubated and put on mechanical ventilation. In the ICU patient was seen to have edema in the upper and lower extremities with low urine output. Patient was flipped CASS on CKD and underwent 2 dialysis sessions which helped improve his kidney function and he was put on Bumex drip and metolazone which diurese the patient really well. Patient likely has septic shock due to pneumonia and acute on chronic heart failure with reduced ejection fraction, underlying paroxysmal atrial fibrillation with a dual-chamber pacemaker, severe peripheral artery disease with right above-knee amputation. Past medical history: COPD on 3.5 L oxygen per minute, heart failure with reduced ejection fraction, coronary artery disease, atrial fibrillation on Eliquis, sick sinus syndrome tongue, insulin dependent type 2 diabetes mellitus, obstructive sleep apnea on CPAP, peripheral artery disease Past surgical history: Left radical nephrectomy, dual-chamber pacemaker, right above-knee amputation Social history: Patient is nonambulatory, quit smoking in year 1999 and denies any alcohol or other drug use Home medications: Eliquis 2.5 mg b.i.d., carvedilol 3.125 mg b.i.d., cilostazol 50 mg b.i.d., Lasix 20 mg daily Hospital course: Initially patient was transferred to ICU for septic shock and on pressor with mechanical ventilation. Septic shock is improved with patient was being taken off vasopressor support on 09/26. Patient was initially treated for MRSA pneumonia with IV vancomycin and cefepime and later the sputum culture revealed presumptive Jessica albicans and micafungin was added the blood culture was negative for any growth after 72 hours of incubation. In the ICU patient was seen to have edema in the upper and lower extremities with low urine output. Patient was flipped CASS on CKD and underwent 2 dialysis sessions which helped improve his kidney function and he was put on Bumex drip and metolazone which diurese the patient really well. 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 nephrology on board and they have given the patient fluid challenge with 100 mL/hour fluid and creatinine was remain elevated at 2.73 with BUN 109 and later reduced the Lasix to 20 mg IV daily and patient had a good urine output. Sacral culture was growing Enterococcus faecalis sensitive to linezolid. For cardiovascular patient has acute on chronic heart failure with a reduced ejection fraction at 40% EF, severe pulmonary hypertension, currently not on any vasopressors and maintaining blood pressure. Patient was extubated on 09/30/2024 and was on nasal cannula 2 L with saturation 97%. Patient remained alert and oriented X1 to 2 and passed swallow evaluation but because of the this alert and orientation we started IV PPN as because patient has a chance of aspiration. Family was counseled regarding the patient's response to treatment, comorbidity and prognosis and they changed the code status from full code to DNR /DNI and wanted hospice for the patient. field irrigation worker was counseled regarding hospice placement and today patient is being discharged to hospice . Examination Constitutional: Patient is currently alert and oriented x2 and on 2 L oxygen through nasal cannula Gen - no pallor, no icterus, no cyanosis, no clubbing Skin - Patients skin is warm and dry. Skin of the left lower extremity below the knee is mottled with poor blood supply . HEENT - normocephalic, atraumatic, moist mucous membranes. Neck - full ROM, no LAD, JVD could not be assessed Pulmonary - B/L diminished breath sounds, no wheezing, no stridor. cardiovascular - variable S1,S2 heard, no added sounds no murmurs heard. GI - soft abdomen. no hepatospleenomegaly. Bowel sounds normoactive Extremities- right LE AKA with 2+ edema, left LE with mottled appearacne and pulse not palpable except femoral pulsation. Neurological - Alert, oriented x2, sensory intact, upper extremity 5/5, right below-knee amputation. Left lower exrtremity 2/5 Time spent in discharge planning was 41 mins Consults/Reason for consult Nephrology was consulted Operations or Procedures RIGHT Lower Extremity Arterial Duplex Date: 09/12/2024 08:23 AM Clinical History: feeble pulses Comparison: US LT LOW EXT ART DUPLEX on DOS: 01/24/24 Findings: Duplex Doppler evaluation including color Doppler and spectral/pulsed waveform analysis of the lower extremity arteries was performed. RIGHT: Multifocal tandem atherosclerotic plaque noted throughout the lower extremity arteries. Peak systolic velocities are as follows: MONOTYPE KEYBOARD OPERATOR 54 cm/s Deep femoral 28 cm/s SFA proximal 14 cm/s SFA mid-portion 12 cm/s SFA distal 27 cm/s Popliteal 0 cm/s Posterior tibial 0 cm/s [at proximal, mid, and distal calf levels, respectively] Anterior tibial 0 cm/s [at proximal, mid, and distal calf levels, respectively] Peroneal 0 cm/s Dorsalis pedis 0 cm/s The waveforms are MONOPHASIC WAVEFORMS. LEFT: Multifocal tandem atherosclerotic plaque noted throughout the lower extremity arteries. CHEST RADIOGRAPH Indication: SOB Technique: Single frontal view of the chest was obtained Comparison: XY CHEST XRAY 1 VIEW on DOS: 09/11/24, XY CHEST XRAY 1 VIEW on DOS: 01/29/24, XY CHEST PORTABLE on DOS: 01/26/24 FINDINGS: Lines and Tubes: None left-sided approach dual lead pacemaker terminates within the right atrium and right ventricle. Lungs: Diffuse interstitial prominence. Indistinctness of the left hemidiaphragm. No pneumothorax. Cardiomediastinal contours: Mild cardiomegaly with moderate atherosclerotic calcification and uncoiling of the aorta. Bones: No acute osseous abnormality. Surgical clips are noted over the bilateral axilla. IMPRESSION: Cardiomegaly with pulmonary vascular congestion. Possible trace left-sided pleural effusion. Underlying infectious process can not be excluded Peak systolic velocities are as follows: MONOTYPE KEYBOARD OPERATOR 0 cm/s Deep femoral 0 cm/s SFA proximal 0 cm/s SFA mid-portion 12 cm/s SFA distal 22 cm/s Popliteal 19 cm/s Posterior tibial 12 cm/s [at proximal, mid, and distal calf levels, respectively] Anterior tibial 0 cm/s [at proximal, mid, and distal calf levels, respectively] The waveforms are monophasic with diastolic flow. REFERENCE VALUES, [facility] ([facility]) vascular Imaging Lab Criteria: Peak systolic velocity ranges (in cm/sec) are as follows: <150 cm/s - <20 % stenosis 150-200 cm/s - 20-49% stenosis 200-300 cm/s - 50-75% stenosis >300 cm/s -> 75% stenosis IMPRESSION: SEVERE BILATERAL PERIPHERAL ARTERIAL DISEASE. 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 VASCULAR SURGERY CONSULTATION RECOMMENDED INDICATION: cass TECHNIQUE: Multiple real-time sonographic images of the kidneys and bladder were obtained. COMPARISON: None FINDINGS: The right kidney measures 11.1 cm in length, which is normal in size. There is increased echogenicity. Cortical thinning noted. No hydronephrosis. No intrarenal calculi noted. Status post left nephrectomy. Urinary bladder is contracted. A Xavier catheter is present. IMPRESSION: 1. Right renal cortical thinning and increased echotexture suggestive of medical renal disease. No hydronephrosis. 2. Status post left nephrectomy. 3. Xavier catheter is present in a contracted urinary bladder. Condition at Discharge: Guarded Final Diagnosis/Problems List Acute metabolic encephalopathy likely due to hypercapnia, s/p extubation Acute DVT of right internal jugular vein and SVT of left cephalic vein Acute on chronic hypercarbic respiratory failure Possible acute on chronic exaccerbation of COPD MRSA Pneumonia Severe pulmonary hypertension Obstructive sleep apnea Shock likely due to sepsis resolved Acute on chronic heart failure with a reduced ejection fraction NYHA class 4 Paroxysmal atrial fibrillation , sick sinus syndrome with s/p dual-chamber pacemaker Coronary artery disease (coronary angiogram in 2020) Peripheral artery disease with s/p 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 Medications: As per EMR Discharge Statement: "Patient was advised to return to the ER or call 911 if any headaches, dizziness, shortness of breath, chest pain, abdominal pain, bleeding, fevers, or worsening of medical condition. Patient was counseled about treatment plan, medications, possible side effects, patientverbalized understanding. All questions were answered to the best of my ability. This discharge took greater then 30 minutes in planning, reviewing documentation, counseling the patient, and discussing with other team members." ASSESSMENT ASSESSMENT Assessment Acute metabolic encephalopathy likely due to hypercapnia, s/p extubation. MRSA pneumonia Date of Service: October 08, 2024 Billing Provider: ENMA MORENO MD Common Visit Codes: 33387-MGV/OBS DISCH DAY >30min DIOGO CORTEZ RESIDENT October 08, 2024 11:05 ENMA MORENO MD October 11, 2024 22:22
--- NOTE | 2024-10-08 17:05 | DVHPN2 ---
Progress Note - Dictate Date Seen: October 08, 2024 Has the PT tested + for MRSA If YES, has PT been informed?: No Medical Necessity Reason Pt with a Central, PICC or Fol: Yes The following are medically ne: Central Line, Mallory Catheter Reason for mallory catheter: Strict I&O Subjective Patient was seen and evaluated in follow up in the ICU. Patient is now on 3 LPM NC. WBC 12.7, BUN 109, PACKER OPERATOR AUTOMATIC 2.73, GLUC 201, CA 8.4. Chest x-ray shows mild pulmonary congestion. Patient is being arranged for discharged with hospice care. vital signs Vital Sign Date Time Temp Pulse Resp B/P (MAP) Pulse Ox O2 Delivery O2 Flow Rate FiO2 10/08/24 11:47 68 19 99 10/08/24 11:41 Nasal Cannula* 3 32 10/08/24 09:12 109/49 10/08/24 04:00 98.3 98.3 Total Intake and Output 10/07/24 10/07/24 10/08/24 15:00 23:00 07:00 Intake Total 480 ml 700 ml 700 ml Output Total 700 ml 700 ml Balance 480 ml 0 ml 0 ml medications Current Medications Medications Dose Ordered Sig/Paramjit Route Start Time Stop Time Status Last Admin Dose Admin Levalbuterol HCl 1.25 mg Q6HR NEB 09/12/24 06:00 10/08/24 11:41 1.25 MG Ipratropium Bevier 0.5 mg Q6HR NEB 09/12/24 06:00 10/08/24 11:41 0.5 MG Pantoprazole Sodium 40 mg DAILY IV 09/13/24 10:00 10/08/24 09:09 40 MG Dextrose 50 ml UD PRN IV 09/17/24 11:00 Cancel Acetaminophen 650 mg Q4HP PRN PO 09/19/24 10:00 09/21/24 07:51 650 MG Diagnostic Test (Pha) 1 strip IQ4HR 09/25/24 12:00 10/08/24 11:44 1 STRIP Insulin Human Regular IQ4HR SC 09/25/24 12:00 10/08/24 12:05 6 UNITS Dextrose 50 ml UD PRN IV 09/25/24 09:30 Potassium Chloride 100 ml @ 50 mls/hr Q2H IV 09/26/24 06:15 09/26/24 10:14 UNV Ceftriaxone Sodium 50 ml @ 100 mls/hr DAILY@09 IV 10/03/24 09:00 10/08/24 09:11 100 MLS/HR Insulin Glargine 30 units DAILY@1000 SC 10/03/24 08:15 10/08/24 10:20 30 UNITS Hydralazine HCl 20 mg Q4HPRN PRN IV 10/05/24 11:15 Amino Acids 0 ml @ 0 mls/hr PER PHARMACY IV 10/05/24 11:15 Fluconazole 100 ml @ 100 mls/hr DAILY IV 10/06/24 10:00 10/08/24 09:12 100 MLS/HR Linezolid 300 ml @ 150 mls/hr Q12HR IV 10/06/24 10:00 10/08/24 09:11 150 MLS/HR Enoxaparin Sodium 90 mg DAILY SC 10/07/24 10:00 10/08/24 10:25 90 MG Fat Emulsion Intravenous 150 ml/Sodium Chloride 40 meq/ Potassium Chloride 60 meq/ Magnesium Sulfate 6 meq/ Multivitamins 10 ml/Chromium/ Copper/Manganese/ Zinc 1 ml/Insulin Human Regular 12 units/Amino Acids/ Dextrose/Purified Water 1,802.62 ml @ 75 mls/hr Q24H3M IV 10/07/24 22:00 10/08/24 21:59 10/07/24 21:41 75 MLS/HR Furosemide 20 mg DAILY IV 10/07/24 16:45 10/07/24 18:00 20 MG Fat Emulsion Intravenous 150 ml/Sodium Chloride 40 meq/ Sodium Phosphate 20 meq/Potassium Chloride 20 meq/ Magnesium Sulfate 6 meq/ Multivitamins 10 ml/Chromium/ Copper/Manganese/ Zinc 1 ml/Insulin Human Regular 16 units/Amino Acids/ Dextrose/Purified Water 1,787.66 ml @ 73 mls/hr [id number] IV 10/08/24 22:00 10/09/24 21:59 objective GENERAL: Alert and oriented x 1. No acute distress. EYES: PERRL, EOMI. Anicteric. HENT: Moist mucous membranes. LUNGS: breath sounds. CARDIOVASCULAR: Regular rate and rhythm. ABDOMEN: Soft, nontender and nondistended. Colostomy bag to the right-sided abdomen. EXTREMITIES: Right AKA. SKIN: Warm, dry. laboratory and microbiology Laboratory Tests 10/08/24 03:41 Test 10/08/24 03:41 Range/Units Serum Glucose 211 H 74-106 mg/dL Problem List Acute on chronic hypoxic respiratory failure secondary to probable CHF exacerbation. Acute on chronic Moderately reduced congestive heart failure exacerbation-NYHA class 4. Pneumonia. AFib, rate controlled on Eliquis. COPD on 3 L home oxygen. Mild coronary artery disease. Sick sinus syndrome status post dual-chamber Biotronik pacemaker 2015. Obstructive apnea on CPAP. Acute cystitis. Diabetes mellitus type 2-A1c 6.4. ? CASS on CKD. Left-sided hydrocele. Anemia likely iron-deficiency. Secondary hypercoagulable state. History of left breast cancer status post surgery and tamoxifen therapy 2007. History of laparoscopic left radical nephrectomy 2013. History of colostomy 2019. Stage I decubitus sacral ulcer. Tunnel hemorrhoids. Diverticulosis. Assessment/Plan Continued all current supportive medical care. IV antibiotics as ordered. Diuretics with Lasix. IV Hydralazine for SBP >170. DVT and GI prophylactics. Additional plan as per the hospital course. Critical care time of 45 minutes provided to include time spent evaluation of patient at bedside, when appropriate patient/family education for diagnosis, treatment plan, review of pertinent medical information and discussion of care with specialty providers and PCP. Dietary Evaluation Review Comments: 1) Matthieu 1 pk daily (ordered per ONS protocol) 2) CCHO 75gm + cardiac 3) Refer Canal Tender on DC 4) Continue current plan of care Expected Outcomes/Goals: To meet >75% estimated needs Fu 3-5 days Plan discussed with: Patient EVERTON SHELDON MD October 08, 2024 14:09
[2024-10-08] MEDS ORDERED: PPN PER PHARMACY IV NR (22:00)
== END 2024-10-08 16:20 | disposition hospice, home (50) | DRG 870 ==
LOC: EDBD 17:43 → EDUNIT# 17:43 → ER 17:43 → OVERFLOW 09-12 02:56 → TELE-WESTW 09-12 12:16 → ICU WEST 09-16 16:20
PROVIDERS: ADMIT Internal Medicine; ATTEND Physician Assistant
PROC: 5A09357 Assistance with Respiratory Ventilation, Less than 24 Consecutive Hours, Continuous Positive Airway Pressure (ICD-10-PCS; principal; 2024-09-14)
PROC: 5A09357 Assistance with Respiratory Ventilation, Less than 24 Consecutive Hours, Continuous Positive Airway Pressure (ICD-10-PCS; 2024-09-15)
PROC: 5A09357 Assistance with Respiratory Ventilation, Less than 24 Consecutive Hours, Continuous Positive Airway Pressure (ICD-10-PCS; 2024-09-16)
PROC: 0BH17EZ Insertion of Endotracheal Airway into Trachea, Via Natural or Artificial Opening (ICD-10-PCS; 2024-09-17)
PROC: 5A1955Z Respiratory Ventilation, Greater than 96 Consecutive Hours (ICD-10-PCS; 2024-09-17)
PROC: 5A09357 Assistance with Respiratory Ventilation, Less than 24 Consecutive Hours, Continuous Positive Airway Pressure (ICD-10-PCS; 2024-09-17)
PROC: 05HN33Z Insertion of Infusion Device into Left Internal Jugular Vein, Percutaneous Approach (ICD-10-PCS; 2024-09-17)
PROC: 5A1D70Z Performance of Urinary Filtration, Intermittent, Less than 6 Hours Per Day (ICD-10-PCS; 2024-09-18)
PROC: 02HV33Z Insertion of Infusion Device into Superior Vena Cava, Percutaneous Approach (ICD-10-PCS; 2024-09-18)
PROC: 5A1D70Z Performance of Urinary Filtration, Intermittent, Less than 6 Hours Per Day (ICD-10-PCS; 2024-09-19)
PROC: 4B02XSZ Measurement of Cardiac Pacemaker, External Approach (ICD-10-PCS; 2024-09-26)
PROC: 02HV33Z Insertion of Infusion Device into Superior Vena Cava, Percutaneous Approach (ICD-10-PCS; 2024-09-26)
PROC: 05H933Z Insertion of Infusion Device into Right Brachial Vein, Percutaneous Approach (ICD-10-PCS; 2024-10-01)
PROC: B54MZZA Ultrasonography of Right Upper Extremity Veins, Guidance (ICD-10-PCS; 2024-10-01)
PROC: 05HA33Z Insertion of Infusion Device into Left Brachial Vein, Percutaneous Approach (ICD-10-PCS; 2024-10-04)
PROC: B54NZZA Ultrasonography of Left Upper Extremity Veins, Guidance (ICD-10-PCS; 2024-10-04)
PROC: 05H933Z Insertion of Infusion Device into Right Brachial Vein, Percutaneous Approach (ICD-10-PCS; 2024-10-06)
PROC: B54MZZA Ultrasonography of Right Upper Extremity Veins, Guidance (ICD-10-PCS; 2024-10-06)
DX: A41.02 Sepsis due to Methicillin resistant Staphylococcus aureus (principal); J96.22 Acute and chronic respiratory failure with hypercapnia; N17.0 Acute kidney failure with tubular necrosis; R65.21 Severe sepsis with septic shock; J96.21 Acute and chronic respiratory failure with hypoxia; I50.43 Acute on chronic combined systolic (congestive) and diastolic (congestive) heart failure; J15.69 Pneumonia due to other Gram-negative bacteria; J15.212 Pneumonia due to Methicillin resistant Staphylococcus aureus; G93.41 Metabolic encephalopathy; E87.4 Mixed disorder of acid-base balance; E87.0 Hyperosmolality and hypernatremia; I13.0 Hypertensive heart and chronic kidney disease with heart failure and stage 1 through stage 4 chronic kidney disease, or unspecified chronic kidney disease; D68.69 Other thrombophilia; J44.0 Chronic obstructive pulmonary disease with (acute) lower respiratory infection; N30.01 Acute cystitis with hematuria; Z66 Do not resuscitate; Z20.822 Contact with and (suspected) exposure to COVID-19; L89.151 Pressure ulcer of sacral region, stage 1; I27.29 Other secondary pulmonary hypertension; I27.81 Cor pulmonale (chronic); E11.22 Type 2 diabetes mellitus with diabetic chronic kidney disease; D50.9 Iron deficiency anemia, unspecified; E11.51 Type 2 diabetes mellitus with diabetic peripheral angiopathy without gangrene; E66.01 Morbid (severe) obesity due to excess calories; Z68.32 Body mass index [BMI] 32.0-32.9, adult; N18.32 Chronic kidney disease, stage 3b; Z51.5 Encounter for palliative care; Z99.81 Dependence on supplemental oxygen; Z89.611 Acquired absence of right leg above knee; I25.10 Atherosclerotic heart disease of native coronary artery without angina pectoris; K57.30 Diverticulosis of large intestine without perforation or abscess without bleeding; G47.33 Obstructive sleep apnea (adult) (pediatric); Z93.3 Colostomy status; I48.0 Paroxysmal atrial fibrillation; E78.5 Hyperlipidemia, unspecified; K64.8 Other hemorrhoids; E87.6 Hypokalemia; N43.3 Hydrocele, unspecified; B95.2 Enterococcus as the cause of diseases classified elsewhere; B96.20 Unspecified Escherichia coli [E. coli] as the cause of diseases classified elsewhere; Z95.0 Presence of cardiac pacemaker; Z79.01 Long term (current) use of anticoagulants; Z90.5 Acquired absence of kidney; Z85.3 Personal history of malignant neoplasm of breast; Z87.891 Personal history of nicotine dependence; Z83.3 Family history of diabetes mellitus; Z82.49 Family history of ischemic heart disease and other diseases of the circulatory system; Z80.8 Family history of malignant neoplasm of other organs or systems; Z80.43 Family history of malignant neoplasm of testis; Z79.810 Long term (current) use of selective estrogen receptor modulators (SERMs); Z79.4 Long term (current) use of insulin; Z89.511 Acquired absence of right leg below knee; Z79.899 Other long term (current) drug therapy; Z79.02 Long term (current) use of antithrombotics/antiplatelets; Z88.8 Allergy status to other drugs, medicaments and biological substances
CPT/HCPCS: 36415; 36600; 70450; 71045; 76775; 76870; 80048; 80053; 80061; 80074; 80202; 80307; 81001; 82040; 82270; 82306; 82570; 82607; 82728; 82805; 82962; 83036; 83540; 83550; 83605; 83690; 83735; 83880; 84100; 84132; 84156; 84300; 84443; 84478; 84484; 85007; 85014; 85018; 85025; 85027; 85610; 85730; 86703; 86850; 86900; 86901; 87040; 87070; 87077; 87081; 87086; 87088; 87186; 87205; 87426; 87804; 90935; 92610; 93005; 93306; 93925; 93926; 93970; 93971; 94002; 94003; 94640; 94660; 96374; 96375; 97163; G0378; J1100; J1450; J1642; J1815; J2003; J2248; J2405; J2470; J3480; J7060; J7131; P9047